=== PATIENT | female | born 1980 | race Caucasian/White ===

== ENCOUNTER 2016-12-07 21:06 | Emergency (ER) | payer SELFPAY ==
[~2016-12-07] VITALS: Ht 162.6 cm; Wt 61.2 kg
[~2016-12-07 21:06] MED LIST: ALPR1T PO; CIPR500T4 PO; CRB200T PO; LEVO125T6 PO; PHYT1LIQ MC
[2016-12-07] MEDS ORDERED: LIDOCAINE/EPI 1%-1:100,000 (XYLOCAINE) 20ML INJ ONE (21:15)
[2016-12-07] MEDS ORDERED: CEPHALEXIN 250 MG (KEFLEX) CAP PO ONE (21:15)
[2016-12-07] MEDS ORDERED: TETANUS,DIPTH,PERTUSS P/F (BOOSTRIX) 0.5 ML VIAL IM ONE (21:15)
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
[2016-12-07] MEDS ORDERED: SULF1TAB35 PO (21:36)
--- NOTE | 2016-12-07 21:41 | Diagnostic Imaging Report ---
Clinical indication: Patient status post fall down stairs. Patient has large laceration to left side of head. Exam: Head CT without IV contrast. Axial CT scan of the cervical spine with sagittal and coronal reformations. Comparison: CT scan of the head, face, and cervical spine dated 07/14/2016. Findings: Head CT: There is no evidence of acute cerebral infarct, intracranial hemorrhage, or gross mass effect. There is normal blackmon-white matter distinction. The brain parenchymal volume appears appropriate for patient's age. There is no significant midline shift or herniation. There is no evidence of hydrocephalus. The basal cisterns are unremarkable. There is a laceration involving the extracranial soft tissue of the left side of the head with adjacent swelling. There is no skull fracture. Otherwise, the skull, extracranial soft tissue, and orbits are unremarkable. There is mild sphenoid sinus mucosal thickening. Cervical spine: There is no acute cervical spine fracture or dislocation. There is stable kyphosis of the cervical spine posture. Stable spurring at the C5-C6 vertebral body level. There is no significant neck soft tissue abnormality. Visualized lung apices are clear. Impression: 1: There is no evidence of acute intracranial process. 2: There is extracranial soft tissue laceration involving the left side of the head with swelling. There is no skull fracture. 3: Stable cervical spine with no acute fracture or dislocation. Dictated by: Dictated on workstation # [id number]
[2016-12-07 21:47] VITALS: BP 120/97
== END 2016-12-07 21:47 | disposition home or self-care (01) ==
LOC: EDUNIT# 21:06 → ER 21:09
DX: S01.01XA Laceration without foreign body of scalp, initial encounter (principal); Z23 Encounter for immunization; F10.10 Alcohol abuse, uncomplicated; W19.XXXA Unspecified fall, initial encounter; Y99.8 Other external cause status
CPT/HCPCS: 12002; 70450; 72125; 90471; 90715

== ENCOUNTER 2016-12-18 10:04 | Emergency (ER) | payer SELFPAY ==
[~2016-12-18] VITALS: Ht 162.6 cm; Wt 56.7 kg
[~2016-12-18 10:04] MED LIST changes: +SULF1TAB35 PO
[2016-12-18 11:11] VITALS: BP 135/90
== END 2016-12-18 11:14 | disposition home or self-care (01) ==
LOC: EDUNIT# 10:04 → ER 10:06
DX: S01.91XD Laceration without foreign body of unspecified part of head, subsequent encounter (principal)

== ENCOUNTER 2018-05-11 20:47 | Emergency (ER) | payer SELFPAY ==
[~2018-05-11] VITALS: Ht 160 cm; Wt 52.2 kg
[2018-05-11] MEDS ORDERED: LACTATED RINGERS 1,000 ML IV ONE (21:23)
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
[2018-05-11 21:45] LABS: BASOPHILS % (AUTO) 0 % (0-10); EOSINOPHILS # (AUTO) 0.3 10^3/uL (0.0-0.3); EOSINOPHILS % (AUTO) 4 % (0-10); HEMATOCRIT 41 % (35-52); HEMOGLOBIN 14.1 G/DL (11.5-16.0); LYMPHOCYTES # (AUTO) 2.2 X 10^3 (1.0-4.0); LYMPHOCYTES % (AUTO) 34 % (12-44); MEAN CORPUSCULAR HEMOGLOBIN 35 PG (25-34); MEAN CORPUSCULAR HGB CONC 34 G/DL (32-36); MEAN CORPUSCULAR VOLUME 102 FL (80-99); MEAN PLATELET VOLUME 10.3 FL (7.4-10.4); MONOCYTES # (AUTO) 0.6 X 10^3 (0.0-1.0); MONOCYTES % (AUTO) 10 % (0-12); NEUTROPHILS # (AUTO) 3.3 X 10^3 (1.8-7.8); NEUTROPHILS % (AUTO) 52 % (42-75); PLATELET COUNT 228 10^3/uL (130-400); RED BLOOD COUNT 4.06 10^6/uL (4.35-5.85); RED CELL DISTRIBUTION WIDTH 13.7 % (10.0-14.5); WHITE BLOOD COUNT 6.4 10^3/uL (4.3-11.0)
[2018-05-11 22:01] LABS: BILIRUBIN,URINE NEGATIVE (NEGATIVE); CLARITY,URINE CLEAR; COLOR,URINE YELLOW; GLUCOSE, URINE (UA) NEGATIVE (NEGATIVE); KETONES,URINE NEGATIVE (NEGATIVE); LEUKOCYTE ESTERASE ,URINE 1+ (NEGATIVE); NITRITE,URINE NEGATIVE (NEGATIVE); PH,URINE 5 (5-9); PROTEIN,URINE NEGATIVE (NEGATIVE); UROBILINOGEN,URINE NORMAL (NORMAL)
[2018-05-11 22:02] LABS: BACTERIA,URINE TRACE /HPF; WBC,URINE 0-2 /HPF
[2018-05-11 22:05] LABS: ALANINE AMINOTRANSFERASE 14 U/L (0-55); ALBUMIN 4.2 GM/DL (3.2-4.5); ALKALINE PHOSPHATASE 87 U/L (40-136); BILIRUBIN,TOTAL 0.2 MG/DL (0.1-1.0); BUN/CREATININE RATIO 8; CALCIUM 8.7 MG/DL (8.5-10.1); CARBON DIOXIDE 20 MMOL/L (21-32); CHLORIDE 114 MMOL/L (98-107); CREATININE SERUM 0.77 MG/DL (0.60-1.30); GFR ESTIMATED > 60; GLUCOSE 104 MG/DL (70-105); MAGNESIUM 2.3 MG/DL (1.8-2.4); POTASSIUM 3.7 MMOL/L (3.6-5.0); SODIUM 146 MMOL/L (135-145)
[2018-05-11 22:10] LABS: INR 0.9 (0.8-1.4); PROTHROMBIN TIME PATIENT 12.1 SEC (12.2-14.7)
[2018-05-11 22:14] LABS: AMPHETAMINE SCREEN, URINE NEGATIVE (NEGATIVE); BARBITURATE SCREEN URINE NEGATIVE (NEGATIVE); BENZODIAZEPINES SCREEN URINE NEGATIVE (NEGATIVE); CANNABINOID SCREEN, URINE NEGATIVE (NEGATIVE); COCAINE SCREEN URINE NEGATIVE (NEGATIVE); METHADONE STAT NEGATIVE (NEGATIVE); METHAMPHETAMINE SCREEN URINE S NEGATIVE (NEGATIVE); OPIATE SCREEN URINE NEGATIVE (NEGATIVE); OXYCODONE STAT NEGATIVE (NEGATIVE); PROPOXYPHENE STAT NEGATIVE (NEGATIVE); TRICYCLIC ANTIDEPRESSANTS SCRE NEGATIVE (NEGATIVE)
[2018-05-11] MEDS ORDERED: RX-NAPROXEN (NAPROSYN) 250 MG TAB PPK#4 PO STA (23:19)
[2018-05-11] MEDS ORDERED: NAPR-915 PO (23:24)
[2018-05-11] MEDS ORDERED: RX-NAPROXEN (NAPROSYN) 250 MG TAB PPK#4 PO ONE (23:39)
[2018-05-11 23:55] VITALS: BP 107/85
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
== END 2018-05-11 23:54 | disposition home or self-care (01) ==
LOC: EDUNIT# 20:47 → ER 20:48
DX: S89.202A Unspecified physeal fracture of upper end of left fibula, initial encounter for closed fracture (principal); S80.12XA Contusion of left lower leg, initial encounter; S00.83XA Contusion of other part of head, initial encounter; F10.220 Alcohol dependence with intoxication, uncomplicated; G40.909 Epilepsy, unspecified, not intractable, without status epilepticus; F32.9 Major depressive disorder, single episode, unspecified; R40.2142 Coma scale, eyes open, spontaneous, at arrival to emergency department; R40.2242 Coma scale, best verbal response, confused conversation, at arrival to emergency department; R40.2362 Coma scale, best motor response, obeys commands, at arrival to emergency department; F17.210 Nicotine dependence, cigarettes, uncomplicated; Z98.51 Tubal ligation status; Z88.5 Allergy status to narcotic agent; Z88.0 Allergy status to penicillin; Y04.8XXA Assault by other bodily force, initial encounter
CPT/HCPCS: 36415; 70450; 72170; 73552; 73562; 73590; 80053; 80306; 80320; 81000; 83735; 84703; 85025; 85610; 85730; 96360

== ENCOUNTER 2018-12-08 19:12 | Emergency (ER) | payer SELFPAY ==
[~2018-12-08] VITALS: Ht 162.6 cm; Wt 59.0 kg
[~2018-12-08 19:12] MED LIST changes: +NAPR-915 PO
--- OUTSIDE RECORDS SUMMARY | 2018-12-08 19:18 | XMS REPORT ---
Author Author Migration, Doctor Organization [facility] Address Unknown Phone Unavailable Care Team Providers Care Air Surveillance Operator Name Role Phone Migration, Doctor Unavailable Unavailable PROBLEMS Type Condition ICD9-CM Code EMJ56-VB Code Onset Dates Condition Status SNOMED Code Problem ETOH abuse F10.10 Active 02115662 Problem Mild episode of recurrent major depressive disorder F33.0 Active [id number] ALLERGIES No Information ENCOUNTERS Encounter Location Date Diagnosis [place] [address] [address] November, [facility] [id number] [place] [address] 12945- 1450 May, [facility] [id number] [place] [address] 42246- 2689 May, Mild episode of recurrent major depressive disorder F33.0 ; Elevated blood pressure reading R03.0 ; Screening for hyperlipidemia Z13.220 ; Screening for thyroid disorder Z13.29 ; Screening for diabetes mellitus Z13.1 and History of seizures Z87.898 [facility] [id number] [place] [address] [id number] Jul, [facility] [id number] [place] [address] 60360- 6095 Oct, [facility] [id number] [place] [address] 10703- 9042 Oct, [facility] [id number] [place] [address] [id number] Sep, [facility] [id number] [place] [address] 87047- 9042 Sep, [facility] [id number] [place] [address] 72386- 5769 Aug, [facility] [id number] [place] [address] [id number] Aug, [facility] [place] [facility] [address] [facility] [id number][place] [address]- 6896 Aug, [facility] [place] [facility] [address] [facility] [id number], [place] [address]- 0586 Aug, [facility] [address] [facility] [id number][place] [id number] Aug, [facility] [place] [facility] [address] [facility] [id number], [place] [address]- 2546 Aug, [facility] [place] [facility] [address] [facility] [id number], [place] [address]- 2546 Aug, [facility] [address] [id number][place] [id number] Jul, [facility] [place] [facility] [address] [address]- 5536 Jul, [facility] [place] [facility] [address] [facility] [id number], [place] [address]- 8616 Jul, [facility] [place] [facility] [address] [facility] [id number][place] [address]- 5566 Jul, [facility] [address] [id number][place] [id number] Jul, [facility] [place] [facility] [address] [facility] [id number], [place] [address]- 4956 Jul, [facility] [place] [facility] [address] [facility] [id number][place] [address]- 2546 Jun, [facility] [place] [facility] [address] [facility] [id number][place] [address]- 2546 Jun, [facility] [address] [facility] [id number], [place] [id number] Jun, [facility] [place] [facility] [address] [facility] [id number][place] [address]- 2546 Jun, [facility] [address] [facility] [id number][place] [id number] Jun, [facility] [place] [facility] [address] [id number] [place] [address]- 2546 Jun, [facility] [place] [facility] [address] [id number] [place] [address]- 2546 Jun, [facility] [place] [facility] [address] [id number] [place] [address]- 2546 May, [facility] [place] [facility] [address] [id number] [place] [address]- 2546 May, [facility] [address] [facility] [id number], [place] [id number] May, [facility] [place] [facility] [address] [id number] [place] [address]- 2546 May, [facility] [place] [facility] [address] [facility] [id number] [place] [address]- 3106 Apr, [facility] [place] [facility] [address] [id number], [place] [address]- 4676 Apr, [facility] [address] [facility] [id number][place] [id number] Apr, [facility] [place] [facility] [address] [id number], [place] [address]- 4556 Apr, [facility] [place] [facility] [address] [id number] [place] [address]- 9894 Mar, [facility] [place] [facility] [address] [id number], [place] [address]- 2676 Mar, [facility] [place] [facility] [address] [id number][place] [address]- 2546 Mar, [facility] [place] [facility] [address] [id number] [place] [address]- 2986 Mar, [facility] [address] [facility] [id number][place] 828362381 Mar, [facility] [place] [facility] [address] [id number][place] [address]- 2656 Mar, [facility] [address] [id number] [place] [id number] Mar, [facility] [address] [id number] [place] [address]- 2416 Mar, [facility] [place] [facility] [address] [id number] [place] [address]- 7406 Feb, [facility] [place] [facility] [address] [id number] [place] [address]- 1874 Feb, [facility] [place] [facility] [address] [id number] [place] [address]- 7904 Feb, [facility] [place] [facility] [address] [id number] [place] [address]- 9289 Feb, [facility] [place] [facility] [address] [id number] [place] [address]- 4377 Feb, [facility] [place] [facility] [address] [id number] [place] [address]- 3445 Feb, [facility] [address] [id number] [place] [id number] Feb, [facility] [place] [facility] [address] [id number] [place] [address]- 9676 Feb, [facility] [place] [facility] [address] [id number] [place] [address]- 6175 Jan, [facility] [place] [facility] [address] [id number] [place] [address]- 1556 Jan, [facility] [address] [id number] [place] [id number] Jan, [facility] [place] [facility] [address] [id number] [place] [address]- 4886 Jan, [facility] [place] [facility] [address] [id number] [place] [address]- 6446 Dec, [facility] [address] [id number] [place] 758171478 Dec, [facility] [address] [id number] [place] [id number] November, [facility] [place] [facility] [address] [id number] [place] [address]- 5556 November, [facility] [address] [id number] [place] [id number] November, [facility] [place] [facility] [address] [facility] [id number] [place] [address]- 1476 November, [facility] [place] [facility] [address] [facility] [id number] [place] [address]- 6476 Oct, [facility] [address] [id number] [place] [id number] Oct, [facility] [address] [id number] [place] 394309513 Oct, [facility] [place] [facility] [address] [id number] [place] [address]- 4237 Oct, [facility] [address] [facility] [id number] [place] [id number] Oct, [facility] [place] [facility] [address] [facility] [id number] [place] [address]- 7989 Oct, [facility] [address] [facility] [id number] [place] [id number] Oct, [facility] [place] [facility] [address] [facility] [id number][place] [address]- 6015 Oct, [facility] [place] [facility] [address] [facility] [id number][place] [address]- 1041 Oct, [facility] [address] [id number] [place] [id number] Oct, [facility] [place] [facility] [address] [facility] [id number] [place] [address]- 5772 Oct, [facility] [address] [id number] [place] [id number] Oct, [facility] [address] [id number] [place] [id number] Sep, [facility] [place] [facility] [address] [facility] [id number][place] [address]- 0519 Sep, [facility] [place] [facility] [address] [facility] [id number] [place] [address]- 6848 Sep, [facility] [address] [facility] [id number] [place] [id number] Sep, [facility] [address] [id number] [place] [id number] Sep, [facility] [place] [facility] [address] [facility] [id number], [place] [address]- 6546 Sep, [facility] [address] [facility] [id number] [place] [id number] Aug, [facility] [place] [facility] [address] [facility] [id number][place] [address]- 9216 Aug, [facility] [address] [facility] [id number] [place] [id number] Aug, [facility] [place] [facility] [address] [facility] [id number][place] [address]- 8107 Aug, [facility] [place] [facility] [address] [facility] [id number][place] [address]- 8289 Aug, [facility] [place] [facility] [address] [facility] [id number], [place] [address]- 0472 Aug, [facility] [address] [facility] [id number][place] 110301591 Jul, [facility] [place] [facility] [address] [facility] [id number][place] [address]- 4276 Jul, [facility] [address] [facility] [id number] [place] 715312530 Jun, [facility] [place] [facility] [address] [facility] [id number], [place] [address]- 2516 Jun, [facility] [address] [facility] [id number] [place] 599984174 May, [facility] [place] [facility] [address] [facility] [id number], [place] [address]- 9692 May, [facility] [address] [id number][place] 105734364 Apr, [facility] [address] [facility] [id number][place] [address]- 2546 Apr, [facility] [address] [id number] [place] [id number] Mar, [facility] [address] [facility] [id number], [place] [address] 2546 Feb, [facility] [address] [id number] [place] [id number] Feb, [facility] [address] [id number] [place] [id number] Feb, [facility] [address] [id number] [place] 123825714 Feb, [facility] [address] [facility] [id number], [place] [address] 2546 Jan, [facility] [address] [id number], [place] 437387851 Jan, [facility] [address] [id number] [place] 818412336 Jan, [facility] [address] [facility] [id number], [place] [address]- 2546 Jan, [facility] [address] [id number], [place] 457140137 November, [facility] [address] [id number], [place] [id number] November, [facility] [facility] [address] [id number][place] [address]- 2546 November, [facility] [address] [id number] [place] 194904669 November, [facility] [address] [id number] [place] 738429802 Oct, [facility] [address] [id number] [place] 966166209 Oct, [facility] [address] [id number] [place] 759032388 Sep, [facility] [address] [id number] [place] 682344998 Sep, [facility] [address] [id number] [place] 786327890 Aug, [facility] [address] [id number] [place] [id number] Jul, [facility] [address] [id number] [place] 428765939 Jun, [facility] [place] [facility] [address] [id number], [place]994[place]- 3314 Jun, [facility] [place] [facility] [address] [facility] [id number][place] [address]- 6843 May, [facility] [place] [facility] [address]65100[place], [place] [address]- 4851 May, [facility] [address] [id number], [place] 727362129 May, [facility] [address] [id number], [place] 542546028 May, [facility] [place] [facility] [address]100[place], [place] [address]- 8344 May, [facility] [place] [facility] [address]65100[place], [place] [address]- 6097 May, [facility] [address] [id number], [place] [id number] May, [facility] [place] [facility] [address] [facility] [id number], [place] [address]- 6962 May, [facility] [address] [id number], [place] [id number] May, [facility] [place] [facility] [address] [facility] [id number][place] [address]- 8988 May, [facility] [address] [id number], [place] 281570125 May, [facility] [place] [facility] [address] [id number], [place] [address]- 2546 May, [facility] [address] [id number], [place] 415385530 May, [facility] [address] [facility] [id number][place] [address]- 8736 May, [facility] [address]65100[place], [place] [address]- 9827 Apr, [facility] [address] [facility] [id number][place] [address]- 6340 Apr, [facility] [id number] [place] [address] 01544- 9284 Apr, [facility] [address]65100[place], [place] [address]- 4514 Apr, [facility] [address] [id number], [place] [id number] Apr, [facility] [address]65100[place], [place] [address]- 1666 Apr, [facility] [address] [id number], [place] 798142237 Apr, [facility] [address] [id number], [place] [id number] Mar, [facility] [address] [id number], [place] [id number] Mar, [facility] [address] [id number], [place] [id number] Feb, [facility] [address] [id number], [place] 622206413 Jan, [facility] [address] [id number], [place] [id number] Dec, [facility] [address] [id number], [place] 941283434 Dec, [facility] [address] [id number], [place] 137597899 November, [facility] [address] [id number] [place] [address] [id number] November, [facility] [address] [id number] [place] [id number] November, [facility] [address]65100[place], [place] [address]- 6975 November, [facility] [address] [id number] [place] [id number] November, [facility] [address] [id number] [place] [id number] November, [facility] [address] [id number] [place] [id number] November, [facility] [address] [id number] [place] [id number] Oct, [facility] [address] [id number] [place] 284729333 Oct, [facility] [address] [id number] [place] [id number] Oct, [facility] [address] [id number] [place] 201464327 Oct, [facility] [address] [id number] [place] [id number] Oct, [facility] [address]100[place], [place] [address]- 4720 Oct, [facility] [address] [id number], [place] 087929389 Oct, [facility] [address] [id number], [place] 946268098 Oct, [facility] [address] [id number] [place] [id number] Sep, [facility] [address] [id number] [place] 375009080 Aug, [facility] [address] [id number] [place] [id number] Aug, [facility] [address] [id number] [place] 788037584 Jul, [facility] [address] [id number] [place] 512075873 Jul, [facility] [address] [id number], [place] [address]- 5416 Jul, [facility] [address] [id number], [place] [id number] Jul, [facility] [address] [id number] [place] [address]- 6486 Jun, [facility] [place] [facility] [address] [id number] [place] [address]- 6166 Jun, [facility] [place] [facility] [address] [id number] [place] [address]- 6765 May, [facility] [place] [facility] [address] [id number] [place] [address]- 8346 Apr, [facility] [address] [facility] [id number] [place] [address]- 6313 Apr, [facility] [address] [id number], [place] [address]- 6205 Jan, [facility] [place] [facility] [address] [id number], [place] [address]- 6862 Dec, [facility] [place] [facility] [address] [id number], [place] [address]- 1266 Aug, [facility] [place] [facility] [address] [id number], [place] [address]- 8266 Jun, [facility] [place] [facility] [address] [id number], [place] [address]- 7556 Jun, [facility] [place] [facility] [address] [id number], [place] [address]- 2406 Jun, [facility] [place] [facility] [address] [id number], [place] [address]- 8106 Jun, [facility] [place] [facility] [address] [facility] [id number], [place] [address]- 0466 Jun, [facility] [place] [facility] [address] [id number], [place] [address]- 4775 May, [facility] [address]65100[place]- 2886 May, [facility] [address]65100[place], [place] [address]- 6963 May, [facility] [address]00565100[place], [place] [address]- 5281 Apr, [facility] [id number] [place] [address] 574700- 6419 Apr, [facility] [id number] [place] [address] 051286- 6555 Apr, [facility] [id number] [place] [address] 584781- 8907 Apr, [facility] [id number] [place] [address] 99149- 4892 Mar, [facility] [address]65100[place], [place] [address]- 0005 Jun, [facility] [address]65100[place], [place] [address]- 0412 Jun, [facility] [address]65100[place], [place] [address]- 7323 Jun, IMMUNIZATIONS No Known Immunizations SOCIAL HISTORY Never Assessed REASON FOR VISIT [facility] [place] PLAN OF CARE VITAL SIGNS MEDICATIONS Unknown Medications RESULTS No Results PROCEDURES No Known procedures INSTRUCTIONS MEDICATIONS ADMINISTERED No Known Medications MEDICAL (GENERAL) HISTORY Type Description Date Medical History anxiety Medical History depression Medical History epilepsy Medical History Attention deficit hyperactivity disorder (ADHD), unspecified ADHD type Medical History Bipolar I disorder, most recent episode (or current) manic, unspecified Medical History Attention deficit disorder of childhood without mention of hyperactivity Medical History Unspecified epilepsy without mention of intractable epilepsy Medical History Cyst of Bartholin''''''''s gland Medical History Unilateral or unspecified femoral hernia without mention of obstruction or gangrene, unilateral or unspecified Medical History Papanicolaou smear of cervix with atypical squamous cells of undetermined significance (ASC-US) Medical History Counseling for marital and partner problems, unspecified Surgical History bilateral tubal ligation (BTL) Surgical History tonsillectomy Hospitalization History seizures
--- OUTSIDE RECORDS SUMMARY | 2018-12-08 19:18 | XMS REPORT ---
Author Author Migration, Doctor Organization [facility] Address Unknown Phone Unavailable Care Team Providers Care Popcorn Vendor Name Role Phone Migration, Doctor Unavailable Unavailable PROBLEMS Type Condition ICD9-CM Code WQB78-ID Code Onset Dates Condition Status SNOMED Code Problem ETOH abuse F10.10 Active [id number] Problem Mild episode of recurrent major depressive disorder F33.0 Active [id number] ALLERGIES No Information ENCOUNTERS Encounter Location Date Diagnosis [facility] [address] [address] May, [facility] [id number] [place] [address]- 3146 May, Mild episode of recurrent major depressive disorder F33.0 ; Elevated blood pressure reading R03.0 ; Screening for hyperlipidemia Z13.220 ; Screening for thyroid disorder Z13.29 ; Screening for diabetes mellitus Z13.1 and History of seizures Z87.[id number] [place] [address] [id number] Jul, [facility] [address] [address] Oct, [facility] [id number] [place] [address] 89509- 3769 Oct, [facility] [id number] [place] [address] [id number] Sep, [facility] [id number] [place] [address] 62012- 4383 Sep, [facility] [id number] [place] [address] 91311- 5616 Aug, [facility] [id number] [place] [address] [id number] Aug, [facility] [id number] [place] [address] 57687- 2546 Aug, [facility] [address] [id number], [place] [address]- [address]46 Aug, [facility] [address] [facility] [id number][place] [id number] Aug, [facility] [place] [facility] [address] [facility] [id number], [place] [address]- 2546 Aug, [facility] [place] [facility] [address] [facility] [id number], [place] [address]- 2546 Aug, [facility] [address] [facility] [id number][place] [id number] Jul, [facility] [place] [facility] [address] [facility] [id number], [place] [address]- 6336 Jul, [facility] [place] [facility] [address] [facility] [id number], [place] [address]- 2306 Jul, [facility] [place] [facility] [address] [facility] [id number], [place] [address]- 8286 Jul, [facility] [address] [facility] [id number], [place] 102561119 Jul, [facility] [place] [facility] [address] [facility] [id number], [place] [address]- 8436 Jul, [facility] [place] [facility] [address] [facility] [id number], [place] [address]- 3466 Jun, [facility] [place] [facility] [address] [facility] [id number], [place] [address]- 2546 Jun, [facility] [address] [facility] [id number], [place] 610821690 Jun, [facility] [place] [facility] [address] [facility] [id number], [place] [address]- 2546 Jun, [facility] [address] [facility] [id number], [place] 137819608 Jun, [facility] [place] [facility] [address] [facility] [id number], [place] [address]- 2546 Jun, [facility] [place] [facility] [address] [id number] [place] [address]- 6313 Jun, [facility] [place] [facility] [address] [id number] [place] [address]- 8476 May, [facility] [place] [facility] [address] [facility] [id number] [place] [address]- 0736 May, [facility] [address] [facility] [id number], [place] 845517473 May, [facility] [place] [facility] [address] [id number] [place] [address]- 5307 May, [facility] [place] [facility] [address] [facility] [id number] [place] [address]- 9316 Apr, [facility] [place] [facility] [address] [facility] [id number] [place] [address]- 9340 Apr, [facility] [address] [facility] [id number], [place] 000022420 Apr, [facility] [place] [facility] [address] [id number] [place] [address]- 0614 Apr, [facility] [place] [facility] [address] [facility] [id number] [place] [address]- 7473 Mar, [facility] [place] [facility] [address] [facility] [id number], [place] [address]- 7163 Mar, [facility] [place] [facility] [address] [facility] [id number], [place] [address]- 7176 Mar, [facility] [place] [facility] [address] [id number] [place] [address]- 2762 Mar, [facility] [address] [facility] [id number], [place] 739487271 Mar, [facility] [place] [facility] [address] [facility] [id number] [place] [address]- 2546 Mar, [facility] [address] [facility] [id number], [place] [id number] Mar, [facility] [place] [facility] [address] [id number] [place] [address]- 0493 Mar, [facility] [place] [facility] [address] [id number] [place] [address]- 6545 Feb, [facility] [place] [facility] [address] [id number] [place] [address]- 9727 Feb, [facility] [place] [facility] [address] [id number] [place] [address]- 0928 Feb, [facility] [place] [facility] [address] [id number] [place] [address]- 5492 Feb, [facility] [place] [facility] [address] [id number] [place] [address]- 2057 Feb, [facility] [place] [facility] [address] [id number] [place] [address]- 9728 Feb, [facility] [address] [facility] [id number], [place] 764271083 Feb, [facility] [place] [facility] [address] [id number] [place] [address]- 2801 Feb, [facility] [place] [facility] [address] [id number] [place] [address]- 5429 Jan, [facility] [place] [facility] [address] [id number] [place] [address]- 6485 Jan, [facility] [address] [facility] [id number], [place] 628893634 Jan, [facility] [place] [facility] [address] [id number] [place] [address]- 3835 Jan, [facility] [place] [facility] [address] [id number] [place] [address]- 1604 Dec, [facility] [address] [id number] [place] [id number] Dec, [facility] [address] [facility] [id number] [place] [id number] November, [facility] [place] [facility] [address] [facility] [id number], [place] [address]- 5413 November, [facility] [address] [id number] [place] [id number] November, [facility] [place] [facility] [address] [facility] [id number] [place] [address]- 4628 November, [facility] [place] [facility] [address] [facility] [id number] [place] [address]- 8540 Oct, [facility] [address] [id number] [place] [id number] Oct, [facility] [address] [id number] [place] [id number] Oct, [facility] [place] [facility] [address] [facility] [id number] [place] [address]- 1478 Oct, [facility] [address] [facility] [id number] [place] [id number] Oct, [facility] [place] [facility] [address] [id number], [place] [address]- 8412 Oct, [facility] [address] [facility] [id number] [place] [id number] Oct, [facility] [place] [facility] [address]65[address], [place] [address]- 9363 Oct, [facility] [place] [facility] [address]65[address], [place] [address]- 9803 Oct, [facility] [address] [facility] [id number] [place] [id number] Oct, [facility] [place] [facility] [address] [facility] [id number] [place] [address]- 6641 Oct, [facility] [address] [facility] [id number] [place] [id number] Oct, [facility] [address] [facility] [id number] [place] [id number] Sep, [facility] [place] [facility] [address] [facility] [id number] [place] [address]- 3468 Sep, [facility] [place] [facility] [address] [id number], [place] [address]- 8976 Sep, [facility] [address] [id number] [place] [id number] Sep, [facility] [address] [id number] [place] [id number] Sep, [facility] [place] [facility] [address] [facility] [id number], [place] [address]- 7036 Sep, [facility] [address] [id number] [place] [id number] Aug, [facility] [place] [facility] [address] [facility] [id number], [place] [address]- 4596 Aug, [facility] [address] [facility] [id number] [place] [id number] Aug, [facility] [place] [facility] [address] [facility] [id number], [place] [address]- 7266 Aug, [facility] [place] [facility] [address] [facility] [id number], [place] [address]- 8419 Aug, [facility] [place] [facility] [address] [facility] [id number], [place] [address]- 8796 Aug, [facility] [address] [facility] [id number], [place] [id number] Jul, [facility] [place] [facility] [address] [facility] [id number], [place] [address]- 5291 Jul, [facility] [address] [facility] [id number], [place] [id number] Jun, [facility] [place] [facility] [address] [facility] [id number], [place] [address]- 3706 Jun, [facility] [address] [facility] [id number], [place] [id number] May, [facility] [place] [facility] [address] [facility] [id number], [place] [address]- 1956 May, [facility] [address] [facility] [id number], [place] [id number] Apr, [facility] [address] [facility] [id number], [place] [address]- 0908 Apr, [facility] [address] [id number] [place] [id number] Mar, [facility] [place] [facility] [address] [facility] [id number], [place] [address]- 6486 Feb, [facility] [address] [id number] [place] [id number] Feb, [facility] [address] [id number] [place] [id number] Feb, [facility] [address] [id number] [place] [id number] Feb, [facility] [place] [facility] [address] [facility] [id number], [place] [address] 2546 Jan, [facility] [address] [id number] [place] [id number] Jan, [facility] [address] [id number] [place] [id number] Jan, [facility] [address] [facility] [id number], [place] [address]- 2546 Jan, [facility] [address] [id number] [place] [id number] November, [facility] [address] [id number], [place] [id number] November, [facility] [address] [facility] [id number], [place] [address]- 2546 November, [facility] [address] [id number] [place] [id number] November, [facility] [address] [id number] [place] [id number] Oct, [facility] [address] [id number] [place] 688343986 Oct, [facility] [address] [id number] [place] [id number] Sep, [facility] [address] [id number] [place] [id number] Sep, [facility] [address] [id number] [place] [id number] Aug, [facility] [address] [id number] [place] [id number] Jul, [facility] [address] [id number] [place] [id number] Jun, [facility] [place] [facility] [address] [facility] [id number], [place] [address]- 3736 Jun, [facility] [place] [facility] [address] [facility] [id number], [place] 550103- 8910 May, [facility] [place] [facility] [address] [facility] [id number], [place] [address]- 6813 May, [facility] [address] [id number], [place] 715136324 May, [facility] [id number] [place] [address] [id number] May, [facility] [place] [facility] [address] [facility] [id number], [place] [address]- 3508 May, [facility] [place] [facility] [address]00565[address], [place] [address]- 8361 May, [facility] [address] [id number], [place] [id number] May, [facility] [place] [facility] [address]00565[address]- 5042 May, [facility] [address] [id number], [place] [id number] May, [facility] [place] [facility] [address] [facility] [id number], [place] [address]- 4685 May, [facility] [address] [facility] [id number], [place] [id number] May, [facility] [place] [facility] [address]00565[address]- 6088 May, [facility] [address] [id number], [place] 376500392 May, [facility] [address] [facility] [id number], [place] [address]- 9076 May, [facility] [place] [facility] [address] [facility] [id number], [place] [address]- 3602 Apr, [facility] [address] [facility] [id number], [place] [address]- 2470 Apr, [facility] [place] [facility] [address] [facility] [id number] [place] [address] 07690- 6285 Apr, [facility] [address] [facility] [id number], [place] [address]- 9011 Apr, [facility] [address] [facility] [id number], [place] [id number] Apr, [facility] [place] [facility] [address]00565[address], [place] [address]- 6566 Apr, [facility] [address] [id number], [place] 762212246 Apr, [facility] [address] [id number], [place] 610904045 Mar, [facility] [address] [id number] [place] [address] [id number] Mar, [facility] [address] [id number], [place] 723748517 Feb, [facility] [address] [id number], [place] 659464857 Jan, [facility] [address] [id number], [place] 319379599 Dec, [facility] [address] [id number], [place] 020629587 Dec, [facility] [address] [id number], [place] [id number] November, [facility] [address] [id number], [place] 176438942 November, [facility] [address] [id number], [place] 454388220 November, [facility] [address] [facility] [id number], [place] [address]- 4381 November, [facility] [address] [id number] [place] [id number] November, [facility] [address] [id number] [place] [id number] November, [facility] [address] [id number] [place] [id number] November, [facility] [address] [id number] [place] [id number] Oct, [facility] [address] [id number] [place] [id number] Oct, [facility] [address] [id number] [place] [id number] Oct, [facility] [address] [id number] [place] [id number] Oct, [facility] [address] [id number] [place] [id number] Oct, [facility] [address]00565[address], [place] [address]- 4087 Oct, [facility] [address] [id number] [place] [id number] Oct, [facility] [address] [id number] [place] [id number] Oct, [facility] [address] [id number] [place] [id number] Sep, [facility] [address] [id number] [place] [id number] Aug, [facility] [address] [id number] [place] [id number] Aug, [facility] [address] [id number] [place] [id number] Jul, [facility] [address] [id number], [place] [id number] Jul, [facility] [address]00565[address], [place] [address]- 9655 Jul, [facility] [address] [id number] [place] [id number] Jul, [facility] [address] [id number] [place] [address]- 0164 Jun, [facility] [place] [facility] [address] [id number] [place] [address]- 5016 Jun, [facility] [place] [facility] [address] [id number] [place] [address]- 9551 May, [facility] [place] [facility] [address] [id number] [place] [address]- 2888 Apr, [facility] [place] [facility] [address] [id number] [place] [address]- 8369 Apr, [facility] [address] [id number] [place] [address]- 5016 Jan, [facility] [address] [id number], [place] [address]- 8627 Dec, [facility] [place] [facility] [address] [id number] [place] [address]- 4879 Aug, [facility] [address] [id number], [place] [address]- 5420 Jun, [facility] [place] [facility] [address] [id number], [place] [address]- 6145 Jun, [facility] [place] [facility] [address] [id number], [place] [address]- 8237 Jun, [facility] [place] [facility] [address] [id number], [place] [address]- 9341 Jun, [facility] [place] [facility] [address] [id number], [place] [address]- 7746 Jun, [facility] [place] [facility] [address] [facility] [id number], [place] [address]- 6183 15 May, 2010 [facility] [place] [facility] [address] [id number], [place] [address]- 2546 May, [facility] [address]65[address], [place] [address]- 6546 May, [facility] [address]00565[address], [place] [address]- 5846 Apr, [facility] [address]65[address], [place] [address]- 8466 Apr, [facility] [address]65[address], [place] [address]- 3528 Apr, [facility] [address]00565[address], [place] [address]- 5896 Apr, [facility] [address]65[address], [place] [address]- 6036 Mar, [facility] [address]65[address], [place] [address]- 0786 Jun, [facility] [address]65[address], [place] [address]- 8581 Jun, [facility] [address]65[address], [place] [address]- 6460 Jun, IMMUNIZATIONS No Known Immunizations SOCIAL HISTORY Never Assessed REASON FOR VISIT [facility] [place] CARE VITAL SIGNS MEDICATIONS Unknown [...]
--- OUTSIDE RECORDS SUMMARY | 2018-12-08 19:19 | XMS REPORT ---
Author Author Migration, Doctor Organization [facility] Address Unknown Phone Unavailable Care Team Providers Care Engineering Technology Instructor Name Role Phone Migration, Doctor Unavailable Unavailable PROBLEMS Type Condition ICD9-CM Code RRE70-RG Code Onset Dates Condition Status SNOMED Code Problem ETOH abuse F10.10 Active 27730224 Problem Mild episode of recurrent major depressive disorder F33.0 Active 163228531 ALLERGIES No Information ENCOUNTERS Encounter Location Date Diagnosis [facility] [address] [address] May, [facility] [id number] [place] [address]- [address] May, Mild episode of recurrent major depressive disorder F33.0 ; Elevated blood pressure reading R03.0 ; Screening for hyperlipidemia Z13.220 ; Screening for thyroid disorder Z13.29 ; Screening for diabetes mellitus Z13.1 and History of seizures Z87.898 [id number] [place] [id number] Jul, [facility] [address] [address] Oct, [facility] [id number] [place] [address]- 2841 Oct, [facility] [id number] [place] [address] [id number] Sep, [facility] [id number] [place] [address]- 3981 Sep, [facility] [id number] [place] [address]- 3596 Aug, [facility] [id number] [place] [address] [id number] Aug, [facility] [id number] [place] [address] 87338- 2546 Aug, [facility] [address] [id number], [place] [address]- 2546 Aug, [facility] [address] [facility] [id number][place] [id number] Aug, [facility] [place] [facility] [address] [facility] [id number], [place] [address]- 2546 Aug, [facility] [place] [facility] [address] [facility] [id number], [place] [address]- 2546 Aug, [facility] [address] [facility] [id number], [place] [id number] Jul, [facility] [place] [facility] [address] [facility] [id number], [place] [address]- 0526 Jul, [facility] [place] [facility] [address] [facility] [id number], [place] [address]- 3016 Jul, [facility] [place] [facility] [address] [facility] [id number], [place] [address]- 2526 Jul, [facility] [address] [facility] [id number], [place] [id number] Jul, [facility] [place] [facility] [address] [facility] [id number], [place] [address]- 9466 Jul, [facility] [place] [facility] [address] [facility] [id number], [place] [address]- 3216 Jun, [facility] [place] [facility] [address] [facility] [id number], [place] [address]- 2546 Jun, [facility] [address] [facility] [id number], [place] 460901906 Jun, [facility] [place] [facility] [address] [facility] [id number], [place] [address]- 2546 Jun, [facility] [address] [facility] [id number], [place] [id number] Jun, [facility] [place] [facility] [address] [facility] [id number], [place] [address]- 2546 Jun, [facility] [place] [facility] [address] [id number] [place] [address]- 8866 Jun, [facility] [place] [facility] [address] [id number] [place] [address]- 3786 May, [facility] [place] [facility] [address] [facility] [id number] [place] [address]- 5656 May, [facility] [address] [facility] [id number], [place] [id number] May, [facility] [place] [facility] [address] [id number] [place] [address]- 9044 May, [facility] [place] [facility] [address] [facility] [id number] [place] [address]- 1286 Apr, [facility] [place] [facility] [address] [facility] [id number] [place] [address]- 9819 Apr, [facility] [address] [facility] [id number], [place] [id number] Apr, [facility] [place] [facility] [address] [id number] [place] [address]- 3115 Apr, [facility] [place] [facility] [address] [facility] [id number] [place] [address]- 7142 Mar, [facility] [place] [facility] [address] [facility] [id number], [place] [address]- 2432 Mar, [facility] [place] [facility] [address] [facility] [id number], [place] [address]- 9806 Mar, [facility] [place] [facility] [address] [id number] [place] [address]- 7794 Mar, [facility] [address] [facility] [id number], [place] 140736559 Mar, [facility] [place] [facility] [address] [facility] [id number] [place] [address]- 2546 Mar, [facility] [address] [facility] [id number], [place] 6[address]00595 Mar, [facility] [place] [facility] [address] [id number] [place] [address]- 5063 Mar, [facility] [place] [facility] [address] [id number] [place] [address]- 7124 Feb, [facility] [place] [facility] [address] [id number] [place] [address]- 1174 Feb, [facility] [place] [facility] [address] [id number] [place] [address]- 0031 Feb, [facility] [place] [facility] [address] [id number] [place] [address]- 8179 Feb, [facility] [place] [facility] [address] [id number] [place] [address]- 5163 Feb, [facility] [place] [facility] [address] [id number] [place] [address]- 1726 Feb, [facility] [address] [facility] [id number], [place] [id number] Feb, [facility] [place] [facility] [address] [id number] [place] [address]- 7981 Feb, [facility] [place] [facility] [address] [id number] [place] [address]- 9539 Jan, [facility] [place] [facility] [address] [id number] [place] [address]- 8359 Jan, [facility] [address] [facility] [id number], [place] 084482450 Jan, [facility] [place] [facility] [address] [id number] [place] [address]- 5086 Jan, [facility] [place] [facility] [address] [id number] [place] [address]- 1377 Dec, [facility] [address] [id number] [place] [id number] Dec, [facility] [address] [facility] [id number] [place] [id number] November, [facility] [place] [facility] [address] [facility] [id number], [place] [address]- 1062 November, [facility] [address] [id number] [place] [id number] November, [facility] [place] [facility] [address] [facility] [id number] [place] [address]- 3339 November, [facility] [place] [facility] [address] [facility] [id number] [place] [address]- 5578 Oct, [facility] [address] [id number] [place] [id number] Oct, [facility] [address] [id number] [place] 783135848 Oct, [facility] [place] [facility] [address] [facility] [id number] [place] [address]- 7376 Oct, [facility] [address] [facility] [id number] [place] [id number] Oct, [facility] [place] [facility] [address] [id number] [address]- [address] Oct, [facility] [address] [facility] [id number] [place] [id number] Oct, [facility] [place] [facility] [address]65[address], [place] [address]- 2820 Oct, [facility] [place] [facility] [address]65100[place], [place] [address]- 7857 Oct, [facility] [address] [facility] [id number] [place] 877788441 Oct, [facility] [place] [facility] [address] [facility] [id number] [place] [address]- 9756 Oct, [facility] [address] [facility] [id number] [place] [id number] Oct, [facility] [address] [facility] [id number] [place] [id number] Sep, [facility] [place] [facility] [address] [facility] [id number] [place] [address]- 8433 Sep, [facility] [place] [facility] [address] [id number], [place] [address]- 2566 Sep, [facility] [address] [id number] [place] 810065355 Sep, [facility] [address] [id number] [place] [id number] Sep, [facility] [place] [facility] [address] [facility] [id number], [place] [address]- 4506 Sep, [facility] [address] [id number] [place] [id number] Aug, [facility] [place] [facility] [address] [facility] [id number], [place] [address]- 8816 Aug, [facility] [address] [facility] [id number] [place] [id number] Aug, [facility] [place] [facility] [address] [facility] [id number], [place] [address]- 2966 Aug, [facility] [place] [facility] [address] [facility] [id number], [place] [address]- 9925 Aug, [facility] [place] [facility] [address] [facility] [id number], [place] [address]- 5399 Aug, [facility] [address] [facility] [id number], [place] [id number] Jul, [facility] [place] [facility] [address] [facility] [id number], [place] [address]- 2886 Jul, [facility] [address] [facility] [id number], [place] 122310626 Jun, [facility] [place] [facility] [address] [facility] [id number], [place] [address]- 0676 Jun, [facility] [address] [facility] [id number], [place] [id number] May, [facility] [place] [facility] [address] [facility] [id number], [place] [address]- 8036 May, [facility] [address] [facility] [id number], [place] [id number] Apr, [facility] [address] [facility] [id number], [place] [address]- 3359 Apr, [facility] [address] [id number] [place] [id number] Mar, [facility] [place] [facility] [address] [facility] [id number], [place] [address]- 0826 Feb, [facility] [address] [id number] [place] [id number] Feb, [facility] [address] [id number] [place] 196944992 Feb, [facility] [address] [id number] [place] [id number] Feb, [facility] [place] [facility] [address] [facility] [id number], [place] [address] 2546 Jan, [facility] [address] [id number] [place] [id number] Jan, [facility] [address] [id number] [place] [id number] Jan, [facility] [address] [facility] [id number], [place] [address]- 2546 Jan, [facility] [address] [id number] [place] [id number] November, [facility] [address] [id number], [place] 580647043 November, [facility] [address] [facility] [id number], [place] [address]- 2546 November, [facility] [address] [id number] [place] [id number] November, [facility] [address] [id number] [place] 943161141 Oct, [facility] [address] [id number] [place] 714786929 Oct, [facility] [address] [id number] [place] 275400477 Sep, [facility] [address] [id number] [place] [id number] Sep, [facility] [address] [id number] [place] 420579423 Aug, [facility] [address] [id number] [place] [id number] Jul, [facility] [address] [id number] [place] [id number] Jun, [facility] [place] [facility] [address] [facility] [id number], [place] [address]- 4764 Jun, [facility] [place] [facility] [address] [facility] [id number], [place] 5608[place]- 6658 May, [facility] [place] [facility] [address] [facility] [id number], [place] [address]- 8053 May, [facility] [address] [id number], [place] 3759[address]455 May, [facility] [id number] [place] [address] [id number] May, [facility] [place] [facility] [address] [facility] [id number], [place] [address]- 9206 May, [facility] [place] [facility] [address]00565100[place], [place] [address]- 6348 May, [facility] [address] [id number], [place] 173352452 May, [facility] [place] [facility] [address]00565100[place]05[place]- 1826 May, [facility] [address] [id number], [place] 031474271 May, [facility] [place] [facility] [address] [facility] [id number], [place] [address]- 2691 May, [facility] [address] [facility] [id number], [place] [id number] May, [facility] [place] [facility] [address]00565100[place]018[place]- 0057 May, [facility] [address] [id number], [place] 087773303 May, [facility] [address] [facility] [id number], [place] [address]- 8696 May, [facility] [place] [facility] [address] [facility] [id number], [place] [address]- 5037 Apr, [facility] [address] [facility] [id number], [place] [address]- 2802 Apr, [facility] [place] [facility] [address] [facility] [id number] [place] [address] 31381- 4357 Apr, [facility] [address] [facility] [id number], [place] [address]- 0080 Apr, [facility] [address] [facility] [id number], [place] [id number] Apr, [facility] [place] [facility] [address]00565100[place], [place] [address]- 8916 Apr, [facility] [address] [id number], [place] 437729956 Apr, [facility] [address] [id number], [place] 880381659 Mar, [facility] [address] [id number] [place] [address] [id number] Mar, [facility] [address] [id number], [place] 786720961 Feb, [facility] [address] [id number], [place] 954956954 Jan, [facility] [address] [id number], [place] 676972600 Dec, [facility] [address] [id number], [place] 981030180 Dec, [facility] [address] [id number], [place] 622592277 November, [facility] [address] [id number], [place] [id number] November, [facility] [address] [id number], [place] 707092696 November, [facility] [address] [facility] [id number], [place] [address]- [address] November, [facility] [address] [id number] [place] [id number] November, [facility] [address] [id number] [place] [id number] November, [facility] [address] [id number] [place] 564971527 November, [facility] [address] [id number] [place] 076652709 Oct, [facility] [address] [id number] [place] [id number] Oct, [facility] [address] [id number] [place] 294592945 Oct, [facility] [address] [id number] [place] [id number] Oct, [facility] [address] [id number] [place] [id number] Oct, [facility] [address]00565100[place], [place] [address]- 3551 Oct, [facility] [address] [id number] [place] [id number] Oct, [facility] [address] [id number] [place] 668414976 Oct, [facility] [address] [id number] [place] [id number] Sep, [facility] [address] [id number] [place] [id number] Aug, [facility] [address] [id number] [place] [id number] Aug, [facility] [address] [id number] [place] [id number] Jul, [facility] [address] [id number], [place] 232231559 Jul, [facility] [address]00565100[place], [place] [address]- 1357 Jul, [facility] [address] [id number] [place] [id number] Jul, [facility] [address] [id number] [place] [address]- 2693 Jun, [facility] [place] [facility] [address] [id number] [place] [address]- 3946 Jun, [facility] [place] [facility] [address] [id number] [place] [address]- 4856 May, [facility] [place] [facility] [address] [id number] [place] [address]- 7053 Apr, [facility] [place] [facility] [address] [id number] [place] [address]- 8505 Apr, [facility] [address] [id number] [place] [address]- 5014 Jan, [facility] [address] [id number], [place] [address]- 3273 Dec, [facility] [place] [facility] [address] [id number] [place] [address]- 5767 Aug, [facility] [address] [id number], [place] [address]- 1526 Jun, [facility] [place] [facility] [address] [id number], [place] [address]- 0849 Jun, [facility] [place] [facility] [address] [id number], [place] [address]- 5082 Jun, [facility] [place] [facility] [address] [id number], [place] [address]- 4032 Jun, [facility] [place] [facility] [address] [id number], [place] [address]- 4817 Jun, [facility] [place] [facility] [address] [facility] [id number], [place] [address]- 8147 15 May, 2010 [facility] [place] [facility] [address] [id number], [place] [address]- 2546 May, [facility] [address]65100[place], [place] [address]- 6666 May, [facility] [address]00565100[place], [place] [address]- 2906 Apr, [facility] [address]00565100[place], [place] [address] 1936 Apr, [facility] [address]00565100[place], [place] [address]- 1948 Apr, [facility] [address]00565100[place], [place] [address]- 9036 Apr, [facility] [address]00565100[place], [place] [address]- 6636 Mar, [facility] [address]65100[place], [place] [address]- 8116 Jun, [facility] [address]65100[place], [place] [address]- 1172 Jun, [facility] [address]65100[place], [place] [address]- 0296 Jun, IMMUNIZATIONS No Known Immunizations SOCIAL HISTORY Never Assessed REASON FOR VISIT [facility] [place] PLAN OF CARE VITAL SIGNS MEDICATIONS Unknown [...]
--- OUTSIDE RECORDS SUMMARY | 2018-12-08 19:19 | XMS REPORT ---
Author Author Migration, Doctor Organization [facility] Address Unknown Phone Unavailable Care Team Providers Care Global Cto Name Role Phone Migration, Doctor Unavailable Unavailable PROBLEMS Type Condition ICD9-CM Code KWA70-PC Code Onset Dates Condition Status SNOMED Code Problem ETOH abuse F10.10 Active 84261837 Problem Mild episode of recurrent major depressive disorder F33.0 Active [id number] ALLERGIES No Information ENCOUNTERS Encounter Location Date Diagnosis [facility] [address] [address] May, [facility] [id number] [place] [address]- 3479 May, Mild episode of recurrent major depressive disorder F33.0 ; Elevated blood pressure reading R03.0 ; Screening for hyperlipidemia Z13.220 ; Screening for thyroid disorder Z13.29 ; Screening for diabetes mellitus Z13.1 and History of seizures Z87.[id number] [place] [id number] Jul, [facility] [address] [address]- [address] Oct, [facility] [id number] [place] [address] 14751- 0177 Oct, [facility] [id number] [place] [address] [id number] Sep, [facility] [id number] [place] [address] 76028- 3147 Sep, [facility] [id number] [place] [address] 65762- 6120 Aug, [facility] [id number] [place] [address] [id number] Aug, [facility] [id number] [place] [address] 84576- 2546 Aug, [facility] [address] [id number], [place] [address]- 25[address] Aug, [facility] [id number][place] [id number] Aug, [facility] [place] [facility] [address] [facility] [id number], [place] [address]- 2546 Aug, [facility] [place] [facility] [address] [facility] [id number], [place] [address]- 2546 Aug, [facility] [address] [facility] [id number], [place] [id number] Jul, [facility] [place] [facility] [address] [facility] [id number], [place] [address]- 8416 Jul, [facility] [place] [facility] [address] [facility] [id number], [place] [address]- 8516 Jul, [facility] [place] [facility] [address] [facility] [id number], [place] [address]- 3126 Jul, [facility] [address] [facility] [id number], [place] [id number] Jul, [facility] [place] [facility] [address] [facility] [id number], [place] [address]- 7856 Jul, [facility] [place] [facility] [address] [facility] [id number], [place] [address]- 5486 Jun, [facility] [place] [facility] [address] [facility] [id number], [place] [address]- 2546 Jun, [facility] [address] [facility] [id number], [place] [id number] Jun, [facility] [place] [facility] [address] [facility] [id number], [place] [address]- 2546 Jun, [facility] [address] [facility] [id number], [place] [id number] Jun, [facility] [place] [facility] [address] [facility] [id number], [place] [address]- 2546 Jun, [facility] [place] [facility] [address] [id number] [place] [address]- 2566 Jun, [facility] [place] [facility] [address] [id number] [place] [address]- 2536 May, [facility] [place] [facility] [address] [facility] [id number] [place] [address]- 3776 May, [facility] [address] [facility] [id number], [place] 830562297 May, [facility] [place] [facility] [address] [id number] [place] [address]- 4763 May, [facility] [place] [facility] [address] [facility] [id number] [place] [address]- 6956 Apr, [facility] [place] [facility] [address] [facility] [id number] [place] [address]- 6032 Apr, [facility] [id number], [place] [id number] Apr, [facility] [place] [facility] [address] [id number] [place] [address]- 8458 Apr, [facility] [place] [facility] [address] [facility] [id number] [place] [address]- 5592 Mar, [facility] [place] [facility] [address] [facility] [id number], [place] [address]- 3443 Mar, [facility] [place] [facility] [address] [facility] [id number], [place] [address]- 9876 Mar, [facility] [place] [facility] [address] [id number] [place] [address]- 0346 Mar, [facility] [address] [facility] [id number], [place] [id number] Mar, [facility] [place] [facility] [address] [facility] [id number] [place] [address]- 2546 Mar, [facility] [id number], [place] [id number] Mar, [facility] [place] [facility] [address] [id number] [place] [address]- 3913 Mar, [facility] [place] [facility] [address] [id number] [place] [address]- 8173 Feb, [facility] [place] [facility] [address] [id number] [place] [address]- 9413 Feb, [facility] [place] [facility] [address] [id number] [place] [address]- 9314 Feb, [facility] [place] [facility] [address] [id number] [place] [address]- 3305 Feb, [facility] [place] [facility] [address] [id number] [place] [address]- 9634 Feb, [facility] [place] [facility] [address] [id number] [place] [address]- 5469 Feb, [facility] [address] [facility] [id number], [place] [id number] Feb, [facility] [place] [facility] [address] [id number] [place] [address]- 7755 Feb, [facility] [place] [facility] [address] [id number] [place] [address]- 8903 Jan, [facility] [place] [facility] [address] [id number] [place] [address]- 7412 Jan, [facility] [id number], [place] 801984676 Jan, [facility] [place] [facility] [address] [id number] [place] [address]- 9530 Jan, [facility] [place] [facility] [address] [id number] [place] [address]- 7221 Dec, [facility] [address] [id number] [place] 989[place]442 Dec, [facility] [address] [facility] [id number] [place] [id number] November, [facility] [place] [facility] [address] [facility] [id number], [place] [address]- 8714 November, [facility] [address] [id number] [place] 168256929 November, [facility] [place] [facility] [address] [facility] [id number] [place] [address]- 9505 November, [facility] [place] [facility] [address] [facility] [id number] [place] [address]- 2659 Oct, [facility] [address] [id number] [place] 7413[address]016 Oct, [facility] [address] [id number] [place] 876347342 Oct, [facility] [place] [facility] [address] [facility] [id number] [place] [address]- 6613 Oct, [facility] [address] [facility] [id number] [place] 156044379 Oct, [facility] [place] [facility] [address] [id number], [place] [address]- 3945 Oct, [facility] [address] [facility] [id number] [place] 996127647 Oct, [facility] [place] [facility] [address]65[address], [place] [address]- 0661 Oct, [facility] [place] [facility] [address]65[address], [place] [address]- 9288 Oct, [facility] [address] [facility] [id number] [place] 902774752 Oct, [facility] [place] [facility] [address] [facility] [id number] [place] [address]- 3517 Oct, [facility] [address] [facility] [id number] [place] 644192425 Oct, [facility] [address] [facility] [id number] [place] 036323570 Sep, [facility] [place] [facility] [address] [facility] [id number] [place] [address]- 4959 Sep, [facility] [place] [facility] [address] [id number], [place] [address]- 1526 Sep, [facility] [address] [id number] [place] [id number] Sep, [facility] [address] [id number] [place] 048370167 Sep, [facility] [place] [facility] [address] [facility] [id number], [place] [address]- 6746 Sep, [facility] [address] [id number] [place] [id number] Aug, [facility] [place] [facility] [address] [facility] [id number], [place] [address]- 5666 Aug, [facility] [address] [facility] [id number] [place] 379810702 Aug, [facility] [place] [facility] [address] [facility] [id number], [place] [address]- 6306 Aug, [facility] [place] [facility] [address] [facility] [id number], [place] [address]- 4355 Aug, [facility] [place] [facility] [address] [facility] [id number], [place] [address]- 2541 Aug, [facility] [address] [facility] [id number], [place] [id number] Jul, [facility] [place] [facility] [address] [facility] [id number], [place] [address]- 9204 Jul, [facility] [address] [facility] [id number], [place] 537391269 Jun, [facility] [place] [facility] [address] [facility] [id number], [place] [address]- 5546 Jun, [facility] [address] [facility] [id number], [place] 255509857 May, [facility] [place] [facility] [address] [facility] [id number], [place] [address]- 6546 May, [facility] [address] [facility] [id number], [place] 204501335 Apr, [facility] [address] [facility] [id number], [place] [address]- 0177 Apr, [facility] [address] [id number] [place] [id number] Mar, [facility] [place] [facility] [address] [facility] [id number], [place] [address]- 3386 Feb, [facility] [address] [id number] [place] 284384259 Feb, [facility] [address] [id number] [place] 320450481 Feb, [facility] [address] [id number] [place] 724769552 Feb, [facility] [place] [facility] [address] [facility] [id number], [place] [address] 2546 Jan, [facility] [address] [id number] [place] 567605104 Jan, [facility] [address] [id number] [place] 516[place]457 Jan, [facility] [address] [facility] [id number], [place] [address]- 2546 Jan, [facility] [address] [id number] [place] 711915705 November, [facility] [address] [id number], [place] 518642629 November, [facility] [address] [facility] [id number], [place] [address]- 2546 November, [facility] [address] [id number] [place] 468409273 November, [facility] [address] [id number] [place] 412574981 Oct, [facility] [address] [id number] [place] 614418884 Oct, [facility] [address] [id number] [place] 661530777 Sep, [facility] [address] [id number] [place] 651055887 Sep, [facility] [address] [id number] [place] 510857120 Aug, [facility] [address] [id number] [place] 441411221 Jul, [facility] [address] [id number] [place] 657634297 Jun, [facility] [place] [facility] [address] [facility] [id number], [place] [address]- 1400 Jun, [facility] [place] [facility] [address] [facility] [id number], [place] 147871- 7846 May, [facility] [place] [facility] [address] [facility] [id number], [place] [address]- 5698 May, [facility] [address] [id number], [place] [address]257[address] May, [facility] [id number] [place] [address] [id number] May, [facility] [place] [facility] [address] [facility] [id number], [place] [address]- 6898 May, [facility] [place] [facility] [address]00565[address], [place] [address]- 7147 May, [facility] [address] [id number], [place] 841159205 May, [facility] [place] [facility] [address]65[address], [place] 483[address]- 8097 May, [facility] [address] [id number], [place] [id number] May, [facility] [place] [facility] [address] [facility] [id number], [place] [address]- 0744 May, [facility] [address] [facility] [id number], [place] 873016182 May, [facility] [place] [facility] [address]65[address], [place] 169[place]- 6587 May, [facility] [address] [id number], [place] 510080087 May, [facility] [address] [facility] [id number], [place] [address]- 4416 May, [facility] [place] [facility] [address] [facility] [id number], [place] [address]- 7157 Apr, [facility] [address] [facility] [id number], [place] [address]- 8446 Apr, [facility] [place] [facility] [address] [facility] [id number] [place] [address] 04881- 4299 Apr, [facility] [address] [facility] [id number], [place] [address]- 7914 Apr, [facility] [id number], [place] 296079118 Apr, [facility] [place] [facility] [address]00565[address], [place] [address]- 3446 Apr, [facility] [address] [id number], [place] 019157014 Apr, [facility] [address] [id number], [place] 054723846 Mar, [facility] [address] [id number] [place] [address] [id number] Mar, [facility] [address] [id number], [place] 718633856 Feb, [facility] [address] [id number], [place] 447027953 Jan, [facility] [address] [id number], [place] 073430203 Dec, [facility] [address] [id number], [place] 518512028 Dec, [facility] [address] [id number], [place] 533424272 November, [facility] [address] [id number], [place] 572670384 November, [facility] [address] [id number], [place] 462272777 November, [facility] [address] [facility] [id number], [place] [address]- 4277 November, [facility] [address] [id number] [place] 574898979 November, [facility] [address] [id number] [place] 550404910 November, [facility] [address] [id number] [place] 296190185 November, [facility] [address] [id number] [place] 080227296 Oct, [facility] [address] [id number] [place] 245042585 Oct, [facility] [address] [id number] [place] 683348646 Oct, [facility] [address] [id number] [place] 058425969 Oct, [facility] [address] [id number] [place] 800650586 Oct, [facility] [address]00565[address], [place] [address]- 2991 Oct, [facility] [address] [id number] [place] 218696817 Oct, [facility] [address] [id number] [place] 791163882 Oct, [facility] [address] [id number] [place] 431886023 Sep, [facility] [address] [id number] [place] 254206703 Aug, [facility] [address] [id number] [place] 974133934 Aug, [facility] [address] [id number] [place] 383436986 Jul, [facility] [address] [id number], [place] 814070634 Jul, [facility] [address]00565[address], [place] [address]- 6507 Jul, [facility] [address] [id number] [place] 733014144 Jul, [facility] [address] [id number] [place] [address]- 2086 Jun, [facility] [place] [facility] [address] [id number] [place] [address]- 8203 Jun, [facility] [place] [facility] [address] [id number] [place] [address]- 7339 May, [facility] [place] [facility] [address] [id number] [place] [address]- 8690 Apr, [facility] [place] [facility] [address] [id number] [place] [address]- 3426 Apr, [facility] [address] [id number] [place] [address]- 1816 Jan, [facility] [address] [id number], [place] [address]- 8820 Dec, [facility] [place] [facility] [address] [id number] [place] [address]- 5612 Aug, [facility] [address] [id number], [place] [address]- 8362 Jun, [facility] [place] [facility] [address] [id number], [place] [address]- 4101 Jun, [facility] [place] [facility] [address] [id number], [place] [address]- 0577 Jun, [facility] [place] [facility] [address] [id number], [place] [address]- 6928 Jun, [facility] [place] [facility] [address] [id number], [place] [address]- 1394 Jun, [facility] [place] [facility] [address] [facility] [id number], [place] [address]- 0118 15 May, 2010 [facility] [place] [facility] [address] [id number], [place] [address]- 2546 May, [facility] [address]65[address], [place] [address]- 0966 May, [facility] [id number], [place] [address]- 1956 Apr, [facility] [address]65[address], [place] [address]- 9796 Apr, [facility] [address]00565100[place], [place] [address]- 6084 Apr, [facility] [address]65100[place], [place] [address]- 4816 Apr, [facility] [address]65100[place], [place] [address]- 9836 Mar, [facility] [address]65[address], [place] [address]- 0416 Jun, [facility] [id number], [place] [address]- 4019 Jun, [facility] [id number], [place] [address]- 1045 Jun, IMMUNIZATIONS No Known Immunizations SOCIAL HISTORY Never Assessed REASON FOR VISIT [facility] PLAN OF CARE [...]
--- OUTSIDE RECORDS SUMMARY | 2018-12-08 19:19 | XMS REPORT ---
Author Author Migration, Doctor Organization [facility] Address Unknown Phone Unavailable Care Team Providers Care Cover Assembler Name Role Phone Migration, Doctor Unavailable Unavailable PROBLEMS Type Condition ICD9-CM Code QDO39-RS Code Onset Dates Condition Status SNOMED Code Problem ETOH abuse F10.10 Active 85530870 Problem Mild episode of recurrent major depressive disorder F33.0 Active [id number] ALLERGIES No Information ENCOUNTERS Encounter Location Date Diagnosis [facility] [address] [address] May, [facility] [id number] [place] [address]24- 7984 May, Mild episode of recurrent major depressive disorder F33.0 ; Elevated blood pressure reading R03.0 ; Screening for hyperlipidemia Z13.220 ; Screening for thyroid disorder Z13.29 ; Screening for diabetes mellitus Z13.1 and History of seizures Z87.[id number] [place] [id number] Jul, [facility] [address] [address]- [address] Oct, [facility] [id number] [place] [address]6538- 1972 Oct, [facility] [id number] [place] [address] [id number] Sep, [facility] [id number] [place] [address] 57782- 1283 Sep, [facility] [id number] [place] [address] 42786- 8562 Aug, [facility] [id number] [place] [address] [id number] Aug, [facility] [id number] [place] [address] 27420- 2546 Aug, [facility] [address] [id number] [address] 25[address] Aug, [facility] [address] [facility] [id number] [id number] Aug, [facility] [place] [facility] [address] [facility] [id number] [place] [address]- 2546 Aug, [facility] [place] [facility] [address] [facility] [id number] [place] [address]- 2546 Aug, [facility] [address] [facility] [id number] [place] [id number] Jul, [facility] [place] [facility] [address] [facility] [id number] [place] [address]- 4956 Jul, [facility] [place] [facility] [address] [facility] [id number] [place] [address]- 1156 Jul, [facility] [place] [facility] [address] [facility] [id number] [place] [address]- 6006 Jul, [facility] [address] [facility] [id number] [id number] Jul, [facility] [place] [facility] [address] [facility] [id number] [place] [address]- 6336 Jul, [facility] [place] [facility] [address] [facility] [id number] [place] [address]- 4036 Jun, [facility] [place] [facility] [address] [facility] [id number] [place] [address]- 2546 Jun, [facility] [address] [facility] [id number] [place] [id number] Jun, [facility] [place] [facility] [address] [facility] [id number] [place] [address]- 2546 Jun, [facility] [address] [facility] [id number] AFB[place] [id number] Jun, [facility] [place] [facility] [address] [facility] [id number] [place] [address]- 2546 Jun, [facility] [place] [facility] [address] [id number] [place] [address]- 8463 Jun, [facility] [place] [facility] [address] [id number] [place] [address]- 5716 May, [facility] [place] [facility] [address] [facility] [id number] [place] [address]- 8126 May, [facility] [address] [facility] [id number] [place] [id number] May, [facility] [place] [facility] [address] [id number] [place] [address]- 1571 May, [facility] [place] [facility] [address] [facility] [id number] [place] [address]- 0966 Apr, [facility] [place] [facility] [address] [facility] [id number] [place] [address]- 5268 Apr, [facility] [address] [facility] [id number] [place] [id number] Apr, [facility] [place] [facility] [address] [id number] [place] [address]- 2117 Apr, [facility] [place] [facility] [address] [facility] [id number] [place] [address]- 6331 Mar, [facility] [place] [facility] [address] [facility] [id number] [place] [address]- 3573 Mar, [facility] [place] [facility] [address] [facility] [id number] [place] [address]- 4386 Mar, [facility] [place] [facility] [address] [id number] [place] [address]- 5148 Mar, [facility] [address] [facility] [id number] AF[place] 9[place]36[place] Mar, [facility] [place] [facility] [address] [facility] [id number] [place] [address]- 2546 Mar, [facility] [address] [facility] [id number] [place] 708[place]2835 Mar, [facility] [place] [facility] [address] [id number] [place] [address]- 5777 Mar, [facility] [place] [facility] [address] [id number] [place] [address]- 2910 Feb, [facility] [place] [facility] [address] [id number] [place] [address]- 9050 Feb, [facility] [place] [facility] [address] [id number] [place] [address]- 3560 Feb, [facility] [place] [facility] [address] [id number] [place] [address]- 3817 Feb, [facility] [place] [facility] [address] [id number] [place] [address]- 3974 Feb, [facility] [place] [facility] [address] [id number] [place] [address]- 7464 Feb, [facility] [address] [facility] [id number] AF[place] 8[place]22[place] Feb, [facility] [place] [facility] [address] [id number] [place] [address]- 0883 Feb, [facility] [place] [facility] [address] [id number] [place] [address]- 7842 Jan, [facility] [place] [facility] [address] [id number] [place] [address]- 7621 Jan, [facility] [address] [facility] [id number] AF[place] 228932148 Jan, [facility] [place] [facility] [address] [id number] [place] [address]- 4188 Jan, [facility] [place] [facility] [address] [id number] [place] [address]- 2306 Dec, [facility] [address] [id number] [place] [id number] Dec, [facility] [address] [facility] [id number] [place] 877253693 November, [facility] [place] [facility] [address] [facility] [id number] [place] [address]- 0301 November, [facility] [address] [id number] [place] 078[address]108 November, [facility] [place] [facility] [address] [facility] [id number] [place] [address]- 3935 November, [facility] [place] [facility] [address] [facility] [id number] [place] [address]- 5076 Oct, [facility] [address] [id number] [place] [id number] Oct, [facility] [address] [id number] [place] [id number] Oct, [facility] [place] [facility] [address] [facility] [id number] [place] [address]- 0697 Oct, [facility] [address] [facility] [id number] [place] [id number] Oct, [facility] [place] [facility] [address] [id number] [address]- 1339 Oct, [facility] [address] [facility] [id number] [place] 845015803 Oct, [facility] [place] [facility] [address]65100[place] [address]- 5024 Oct, [facility] [place] [facility] [address]65100[place] [address]- 6594 Oct, [facility] [address] [facility] [id number] [place] [id number] Oct, [facility] [place] [facility] [address] [facility] [id number] [place] [address]- 7577 Oct, [facility] [address] [facility] [id number] [place] [id number] Oct, [facility] [address] [facility] [id number] [place] [id number] Sep, [facility] [place] [facility] [address] [facility] [id number] [place] [address]- 0035 Sep, [facility] [place] [facility] [address] [id number] [place] [address]- 0936 Sep, [facility] [address] [id number] [place] [id number] Sep, [facility] [address] [id number] [place] 737782761 Sep, [facility] [place] [facility] [address] [facility] [id number] [place] [address]- 8866 Sep, [facility] [address] [id number] [place] 828787585 Aug, [facility] [place] [facility] [address] [facility] [id number] [place] [address]- 9246 Aug, [facility] [address] [facility] [id number] [place] [id number] Aug, [facility] [place] [facility] [address] [facility] [id number] [address]- 3916 Aug, [facility] [place] [facility] [address] [facility] [id number] [address]- 0000 Aug, [facility] [place] [facility] [address] [facility] [id number] [place] [address]- 1444 Aug, [facility] [address] [facility] [id number] AF[place] [id number] Jul, [facility] [place] [facility] [address] [facility] [id number] [place] [address]- 9551 Jul, [facility] [address] [facility] [id number] AFB[place] [id number] Jun, [facility] [place] [facility] [address] [facility] [id number] [address]- 5806 Jun, [facility] [address] [facility] [id number] AF[place] [id number] May, [facility] [place] [facility] [address] [facility] [id number] [place] [address]- 6456 May, [facility] [address] [facility] [id number] AF[place] [id number] Apr, [facility] [address] [facility] [id number] [address]- 4447 Apr, [facility] [address] [id number] [place] [id number] Mar, [facility] [place] [facility] [address] [facility] [id number] [place] [address]- 2766 Feb, [facility] [address] [id number] [place] [id number] Feb, [facility] [address] [id number] [place] [id number] Feb, [facility] [address] [id number] [place] [id number] Feb, [facility] [place] [facility] [address] [facility] [id number] [place] [address] 2546 Jan, [facility] [address] [id number] [place] [id number] Jan, [facility] [address] [id number] [place] [id number] Jan, [facility] [address] [facility] [id number] [place] [address]- 2546 Jan, [facility] [address] [id number] [place] [id number] November, [facility] [address] [id number] AFB[place] 175832599 November, [facility] [address] [facility] [id number] [place] [address]- 2546 November, [facility] [address] [id number] [place] [id number] November, [facility] [address] [id number] [place] 269518143 Oct, [facility] [address] [id number] [place] [id number] Oct, [facility] [address] [id number] [place] 203638364 Sep, [facility] [address] [id number] [place] 665363659 Sep, [facility] [address] [id number] [place] [id number] Aug, [facility] [address] [id number] [place] [id number] Jul, [facility] [address] [id number] [place] 186919351 Jun, [facility] [place] [facility] [address] [facility] [id number] [address]- 5220 Jun, [facility] [place] [facility] [address] [facility] [id number] [place]- 5759 May, [facility] [place] [facility] [address] [facility] [id number] [address]- 9438 May, [facility] [address] [id number] [place] [id number] May, [facility] [id number] [place] [address] [id number] May, [facility] [place] [facility] [address] [facility] [id number] [place] [address]- 0716 May, [facility] [place] [facility] [address] [address]- 3383 May, [facility] [address] [id number] [place] 906635160 May, [facility] [place] [facility] [address]- 2572 May, [facility] [address] [id number] AFB[place] 896187568 May, [facility] [place] [facility] [address] [facility] [id number] [place] [address]- 1364 May, [facility] [address] [facility] [id number] AF[place] 404803295 May, [facility] [place] [facility] [address]- 2293 May, [facility] [address] [id number] AF[place] [id number] May, [facility] [address] [facility] [id number] [address]- 4146 May, [facility] [place] [facility] [address] [facility] [id number] [place] [address]- 2058 Apr, [facility] [address] [facility] [id number] [address]- 1663 Apr, [facility] [place] [facility] [address] [facility] [id number] [place] [address] 13498- 7911 Apr, [facility] [address] [facility] [id number] [address]- 9097 Apr, [facility] [address] [facility] [id number] AF[place] 229816039 Apr, [facility] [place] [facility] [address] [address]- 2066 Apr, [facility] [address] [id number] AF[place] 287734494 Apr, [facility] [address] [id number] AF[place] 458101091 Mar, [facility] [address] [id number] [place] [address] [id number] Mar, [facility] [address] [id number] AF[place] 767633951 Feb, [facility] [address] [id number] AFB[place] 143980188 Jan, [facility] [address] [id number] AFB[place] 501526097 Dec, [facility] [address] [id number] AF[place] 934354820 Dec, [facility] [address] [id number] AF[place] 182727400 November, [facility] [address] [id number] [place] [id number] November, [facility] [address] [id number] AF[place] 826240670 November, [facility] [address] [facility] [id number] [place] [address]- 3566 November, [facility] [address] [id number] [place] 205900303 November, [facility] [address] [id number] [place] 132637358 November, [facility] [address] [id number] [place] 780918511 November, [facility] [address] [id number] [place] [id number] Oct, [facility] [address] [id number] [place] [id number] Oct, [facility] [address] [id number] [place] [id number] Oct, [facility] [address] [id number] [place] 177127968 Oct, [facility] [address] [id number] [place] [id number] Oct, [facility] [address] [address]- 3407 Oct, [facility] [address] [id number] [place] [id number] Oct, [facility] [address] [id number] [place] [id number] Oct, [facility] [address] [id number] [place] 959304173 Sep, [facility] [address] [id number] [place] [id number] Aug, [facility] [address] [id number] [place] 388130850 Aug, [facility] [address] [id number] [place] [id number] Jul, [facility] [address] [id number] AF[place] 767684674 Jul, [facility] [id number] [address]- 2258 Jul, [facility] [address] [id number] [place] [id number] Jul, [facility] [address] [id number] [place] [address]- 5160 Jun, [facility] [place] [facility] [address] [id number] [place] [address]- 6311 Jun, [facility] [place] [facility] [address] [id number] [place] [address]- 3386 May, [facility] [place] [facility] [address] [id number] [place] [address]- 5485 Apr, [facility] [place] [facility] [address] [id number] [place] [address]- 2415 Apr, [facility] [address] [id number] [place] [address]- 3288 Jan, [facility] [address] [id number] [place] [address]- 5407 Dec, [facility] [place] [facility] [address] [id number] [place] [address]- 0806 Aug, [facility] [address] [id number] [address]- 7441 Jun, [facility] [place] [facility] [address] [id number] [place] [address]- 5210 Jun, [facility] [place] [facility] [address] [id number] [place] [address]- 2910 Jun, [facility] [place] [facility] [address] [id number] [address]- 3868 Jun, [facility] [place] [facility] [address] [id number] [place] [address]- 8255 Jun, [facility] [place] [facility] [address] [facility] [id number] [address]- 1002 15 May, 2010 [facility] [place] [facility] [address] [id number] [address]- 2546 May, [facility] [id number] [address]- 5956 May, [facility] [id number] [address]- 1556 Apr, [facility] [id number] [address]- 6606 Apr, [facility] [id number] [address] Apr, [facility] [id number] [address] Apr, [facility] [id number] [address] Mar, [facility] [id number] [address] Jun, [facility] [id number] [address] Jun, [facility] [id number] [address] Jun, IMMUNIZATIONS No Known Immunizations SOCIAL HISTORY Never Assessed REASON FOR VISIT [facility] [place] PLAN OF CARE [...]
--- OUTSIDE RECORDS SUMMARY | 2018-12-08 19:20 | XMS REPORT ---
Author Author JESE JIMENEZ Organization [facility] Address [address] [place] [address] Care Team Providers Care Flasher Adjuster Name Role Phone JULISA JIMENEZTA Unavailable PROBLEMS Type Condition ICD9-CM Code ZQB44-NH Code Onset Dates Condition Status SNOMED Code Problem Mild episode of recurrent major depressive disorder F33.0 Active [id number] ALLERGIES No Information ENCOUNTERS Encounter Location Date Diagnosis [facility] [id number] [place] [address]30- 1529 May, [facility] [id number] [place] [address] 85307- 3560 May, Mild episode of recurrent major depressive disorder F33.0 ; Elevated blood pressure reading R03.0 ; Screening for hyperlipidemia Z13.220 ; Screening for thyroid disorder Z13.29 ; Screening for diabetes mellitus Z13.1 and History of seizures Z87.898 [facility] [id number] [place] [address] [id number] Jul, [facility] [id number] [place] [address] 23358- 1208 Oct, [facility] [id number] [place] [address] 08937- 5253 Oct, [facility] [id number] [place] [address] [id number] Sep, [facility] [id number] [place] [address] 15537- 5634 Sep, [facility] [id number] [place] [address] 44621286- 7461 Aug, [facility] [id number] [place] [address] [id number] Aug, [facility] [id number] [address] Aug, 2014 [facility] [address] [facility] [id number], [place] [address]- 5696 Aug, 2014 [facility] [address] [facility] [id number][place] [id number] Aug, [facility] [place] [facility] [address] [facility] [id number], [place] [address]- 0656 Aug, [facility] [place] [facility] [address] [facility] [id number], [place] [address]- 2546 Aug, [facility] [address] [facility] [id number], [place] [id number] Jul, [facility] [place] [facility] [address] [facility] [id number], [place] [address]- 3356 Jul, [facility] [place] [facility] [address] [facility] [id number], [place] [address]- 9776 Jul, [facility] [place] [facility] [address] [facility] [id number], [place] [address]- 5239 Jul, [facility] [address] [id number][place] [id number] Jul, [facility] [place] [facility] [address] [facility] [id number], [place] [address]- 6446 Jul, [facility] [place] [facility] [address] [facility] [id number], [place] [address]- 3536 Jun, [facility] [place] [facility] [address] [facility] [id number], [place] [address]- 2546 Jun, [facility] [address] [facility] [id number], [place] [id number] Jun, [facility] [place] [facility] [address] [facility] [id number], [place] [address]- 2546 Jun, [facility] [address] [facility] [id number], [place] [id number] Jun, [facility] [place] [facility] [address] [facility] [id number], [place] [address]- 8916 Jun, [facility] [place] [facility] [address] [facility] [id number], [place] [address]- 7266 Jun, [facility] [place] [facility] [address] [facility] [id number], [place] [address]- 2346 May, [facility] [place] [facility] [address] [facility] [id number], [place] [address]- 9646 May, [facility] [address] [facility] [id number], [place] [id number] May, [facility] [place] [facility] [address] [facility] [id number] [place] [address]- 5639 May, [facility] [place] [facility] [address] [facility] [id number], [place] [address]- 3917 Apr, [facility] [place] [facility] [address] [facility] [id number], [place] [address]- 9307 Apr, [facility] [address] [facility] [id number], [place] [id number] Apr, [facility] [place] [facility] [address] [facility] [id number], [place] [address]- 0837 Apr, [facility] [place] [facility] [address] [facility] [id number], [place] [address]- 8791 Mar, [facility] [place] [facility] [address] [facility] [id number], [place] [address]- 8594 Mar, [facility] [place] [facility] [address] [facility] [id number], [place] [address]- 5136 Mar, [facility] [place] [facility] [address] [facility] [id number], [place] [address]- 7811 Mar, [facility] [address] [facility] [id number], [place] [id number] Mar, [facility] [place] [facility] [address] [facility] [id number], [place] [address]- 2546 Mar, [facility] [address] [facility] [id number], [place] [id number] Mar, [facility] [place] [facility] [address] [id number] [place] [address]- 1510 Mar, [facility] [place] [facility] [address] [id number] [place] [address]- 8481 Feb, [facility] [place] [facility] [address] [id number] [place] [address]- 5612 Feb, [facility] [place] [facility] [address] [id number] [place] [address]- 6978 Feb, [facility] [place] [facility] [address] [id number] [place] [address]- 8809 Feb, [facility] [place] [facility] [address] [facility] [id number] [place] [address]- 6092 Feb, [facility] [place] [facility] [address] [id number] [place] [address]- 4548 Feb, [facility] [address] [facility] [id number], [place] [id number] Feb, [facility] [place] [facility] [address] [facility] [id number] [place] [address]- 5625 Feb, [facility] [place] [facility] [address] [facility] [id number], [place] [address]- 7830 Jan, [facility] [place] [facility] [address] [facility] [id number], [place] [address]- 5004 Jan, [facility] [address] [id number], [place] [id number] Jan, [facility] [place] [facility] [address] [id number], [place] [address]- 1724 Jan, [facility] [place] [facility] [address] [facility] [id number], [place] [address]- 3456 Dec, [facility] [address] [id number], [place] 718150866 Dec, [facility] [address] [id number], [place] [id number] November, [facility] [place] [facility] [address] [id number] [place] [address]- 4979 November, [facility] [address] [id number] [place] [id number] November, [facility] [place] [facility] [address] [facility] [id number] [place] [address]- 3556 November, [facility] [place] [facility] [address] [facility] [id number] [place] [address]- 7653 Oct, [facility] [address] [id number] [place] [id number] Oct, [facility] [address] [id number] [place] [id number] Oct, [facility] [place] [facility] [address] [facility] [id number] [place] [address]- 6027 Oct, [facility] [address] [facility] [id number] [place] [id number] Oct, [facility] [place] [facility] [address] [facility] [id number], [place] [address]- 8377 Oct, [facility] [address] [facility] [id number] [place] [id number] Oct, [facility] [place] [facility] [address] [facility] [id number], [place] [address]- 4177 Oct, [facility] [place] [facility] [address] [facility] [id number], [place] [address]- 8221 Oct, [facility] [address] [facility] [id number], [place] [id number] Oct, [facility] [place] [facility] [address] [facility] [id number] [place] [address]- 0839 Oct, [facility] [address] [id number] [place] [id number] Oct, [facility] [address] [facility] [id number] [place] [id number] Sep, [facility] [place] [facility] [address] [facility] [id number] [place] [address]- 5808 Sep, [facility] [address] [facility] [id number], [place] [address]- 7839 Sep, [facility] [address] [id number] [place] [id number] Sep, [facility] [address] [id number] [place] 170304941 Sep, [facility] [address] [facility] [id number], [place] [address]- 4308 Sep, [facility] [address] [id number] [place] 530055238 Aug, [facility] [place] [facility] [address] [facility] [id number], [place] [address]- 5727 Aug, [facility] [address] [facility] [id number], [place] [id number] Aug, [facility] [address] [facility] [id number], [place] [address]- 0619 Aug, [facility] [place] [facility] [address] [facility] [id number] [address]- 7344 Aug, [facility] [place] [facility] [address] [facility] [id number][place] [address]- 7562 Aug, [facility] [address] [facility] [id number], [place] 879395956 Jul, [facility] [place] [facility] [address] [facility] [id number], [place] [address]- 5168 Jul, [facility] [address] [facility] [id number], [place] [id number] Jun, [facility] [place] [facility] [address] [facility] [id number], [place] [address]- 5526 Jun, [facility] [address] [facility] [id number], [place] [id number] May, [facility] [place] [facility] [address] [facility] [id number], [place] [address]- 0515 May, [facility] [address] [facility] [id number], [place] 425600664 Apr, [facility] [address] [id number], [place] [address]- 2546 Apr, [facility] [address] [id number] [place] [id number] Mar, [facility] [address] [facility] [id number], [place] [address]- 2546 Feb, [facility] [address] [id number] [place] 688786667 Feb, [facility] [address] [id number] [place] [id number] Feb, [facility] [address] [id number] [place] 032810680 Feb, [facility] [address] [facility] [id number], [place] [address]- 5986 Jan, [facility] [address] [id number] [place] [id number] Jan, [facility] [address] [id number] [place] 843815206 Jan, [facility] [address] [facility] [id number], [place] [address] 2546 Jan, [facility] [address] [id number] [place] 885795578 November, [facility] [address] [id number] [place] 934150401 November, [facility] [address] [facility] [id number], [place] [address]- 2546 November, [facility] [address] [id number] [place] 3179[place]647 November, [facility] [address] [id number] [place] 532347840 Oct, [facility] [address] [id number] [place] [id number] Oct, [facility] [address] [id number] [place] [id number] Sep, [facility] [address] [id number] [place] 259881569 Sep, [facility] [address] [id number] [place] 829110234 Aug, [facility] [address] [id number] [place] [id number] Jul, [facility] [address] [id number] [place] [id number] Jun, [facility] [place] [facility] [address] [facility] [id number], [place] [address]- 3302 Jun, [facility] [place] [facility] [address] [facility] [id number], [place] [address]- 7772 May, [facility] [place] [facility] [address] [facility] [id number], [place] [address]- 4910 May, [facility] [address] [facility] [id number], [place] [id number] May, [facility] [address] [facility] [id number], [place] 850234680 May, [facility] [place] [facility] [address] [facility] [id number], [place] [address]- 7048 May, [facility] [place] [facility] [address]65100[place], [place] [address]- 5135 May, [facility] [address] [facility] [id number], [place] [id number] May, [facility] [place] [facility] [address] [facility] [id number], [place] [address]- 4353 May, [facility] [address] [id number], [place] 786616604 May, [facility] [place] [facility] [address] [facility] [id number], [place] [address]- 8528 May, [facility] [address] [id number], [place] 616838970 May, [facility] [place] [facility] [address] [id number] [address]- 4970 May, [facility] [address] [id number], [place] 083770103 May, [facility] [address] [facility] [id number], [place] [address]- 5446 May, [facility] [address] [facility] [id number], [place] [address]- 3536 Apr, [facility] [address] [facility] [id number], [place] [address]- 4058 Apr, [facility] [address] [facility] [id number], [place] [address]- 6399 Apr, [facility] [address] [facility] [id number], [place] [address]- 6795 Apr, [facility] [address] [id number], [place] [id number] Apr, [facility] [address]00565100[place], [place] [address]- 1986 Apr, [facility] [address] [id number], [place] 757951864 Apr, [facility] [address] [id number], [place] 908695220 Mar, [facility] [address] [id number], [place] 394804411 Mar, [facility] [address] [id number], [place] 112564295 Feb, [facility] [address] [id number], [place] 071377282 Jan, [facility] [address] [id number], [place] 850124929 Dec, [facility] [address] [id number], [place] 951265788 Dec, [facility] [address] [id number], [place] 820928083 November, [facility] [address] [id number], [place] 939141200 November, [facility] [id number] [place] [address] [id number] November, [facility] [address] [facility] [id number], [place] [address]- 1650 November, [facility] [address] [id number] [place] 015521013 November, [facility] [address] [id number] [place] 970478433 November, [facility] [address] [id number] [place] [id number] November, [facility] [address] [id number] [place] 793852658 Oct, [facility] [address] [id number] [place] 285307514 Oct, [facility] [address] [id number] [place] 783988972 Oct, [facility] [address] [id number] [place] 663424971 Oct, [facility] [address] [id number] [place] 482199667 Oct, [facility] [address]100[place], [place] [address]- 4573 Oct, [facility] [address] [id number] [place] [id number] Oct, [facility] [address] [id number], [place] 495966114 Oct, [facility] [address] [id number], [place] 243950071 Sep, [facility] [address] [id number], [place] 377697115 Aug, [facility] [address] [id number] [place] 122044163 Aug, [facility] [address] [id number] [place] 820706530 Jul, [facility] [address] [id number], [place] 791777289 Jul, [facility] [id number] [place] [address] [place] [address]- 1944 Jul, [facility] [address] [id number], [place] 814238805 Jul, [facility] [address] [id number] [place] [address]- 1814 Jun, [facility] [place] [facility] [address] [id number] [place] [address]- 1536 Jun, [facility] [place] [facility] [address] [id number], [place] [address]- 4916 May, [facility] [place] [facility] [address] [id number] [place] [address]- 5027 Apr, [facility] [place] [facility] [address] [id number] [place]- 2822 Apr, [facility] [place] [facility] [address] [id number] [place] [address]- 0826 Jan, [facility] [place] [facility] [address] [id number] [place] [address]- 7757 Dec, [facility] [place] [facility] [address] [id number] [place] [address]- 9010 Aug, [facility] [place] [facility] [address] [id number] [place] [address]- 4056 Jun, [facility] [place] [facility] [address] [id number], [place] [address]- 9774 Jun, [facility] [place] [facility] [address] [id number], [place] [address]- 9366 Jun, [facility] [place] [facility] [address] [id number] [place] [address]- 4354 Jun, [facility] [place] [facility] [address] [id number] [place] [address]- 7613 Jun, [facility] [place] [facility] [address] [id number] [place] [address]- 3778 15 May, 2010 [facility] [place] [facility] [address] [id number] [address]- 7776 May, [facility] [address]00565100[place], [place] [address]- 7472 May, [facility] [address]00565100[place], [place] [address]- 6256 Apr, [facility] [address]00565100[place], [place] [address]- 7365 Apr, [facility] [address]00565100[place], [place] [address]- 3861 Apr, [facility] [id number] [place] [address]- 0048 Apr, [facility] [address]00565100[place], [place] [address]- 1004 Mar, [facility] [address]00565100[place], [place] [address]- 4284 Jun, [facility] [address]00565100[place], [place] [address]- 0826 Jun, [facility] [address]65100[place], [place] [address]- 4506 Jun, IMMUNIZATIONS No Known Immunizations SOCIAL HISTORY Never Assessed REASON FOR VISIT Intake PLAN OF CARE VITAL SIGNS MEDICATIONS Unknown [...]
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
--- OUTSIDE RECORDS SUMMARY | 2018-12-08 19:21 | XMS REPORT ---
Author Author SANDY DEJESUS Organization [facility] Address [address] [place] [address] Care Team Providers Care Channel Marketing Specialist Name Role Phone DEJESUS, SANDY Unavailable PROBLEMS Type Condition ICD9-CM Code LBF67-SB Code Onset Dates Condition Status SNOMED Code Problem Pulpitis 522.0 Active 78882328 Problem Cyst of Bartholin's gland 616.2 Active 43578358 Problem Unspecified dental caries 521.00 Active 73351423 Problem Bipolar I disorder, most recent episode (or current) manic, unspecified 296.40 Active 90128775 Problem Unspecified episodic mood disorder 296.90 Active 854381853 Problem Acute suppurative otitis media without spontaneous rupture of eardrum 382.00 Active 40251028 Problem Acute maxillary sinusitis 461.0 Active 40856847 Problem Attention deficit disorder of childhood without mention of hyperactivity 314.00 Active 87938899 Problem Unspecified epilepsy without mention of intractable epilepsy 345.90 Active 32003056 Problem Screening for malignant neoplasm of the cervix V76.2 Active 347154355 Problem Need for prophylactic vaccination and inoculation, Influenza V04.81 Active 666924464 Problem Papanicolaou smear of cervix with atypical squamous cells of undetermined significance (ASC-US) 795.01 Active 647584255 Problem Counseling for marital and partner problems, unspecified V61.10 Active 36443431 Problem Cellulitis and abscess of other specified site 682.8 Active 667183436 Problem Encounter for long-term (current) use of other medications V58.69 Active 107384838 Problem Unilateral or unspecified femoral hernia without mention of obstruction or gangrene, unilateral or unspecified 553.00 Active 66467768 ALLERGIES Substance Reaction Event Type Date Status Strattera hallucinations Drug Allergy Jul, Active Codeine Sulfate Unknown Drug Allergy Jul, Active ENCOUNTERS Encounter Location Date Diagnosis [facility] [address] [facility] [id number] [id number] Jul, [facility] [place] [facility] [address] [id number] [address] Oct, [facility] [place] [facility] [address] [facility] [id number] [place] [address] Oct, [facility] [place] [address] [facility] [id number][place] [address] Sep, [facility] [place] [facility] [address] [facility] [id number] [place] [address] Sep, [facility] [place] [facility] [address] [facility] [id number] [place] [address] Aug, [facility] [place] [address] [facility] [id number][place] [id number] Aug, [facility] [place] [facility] [address] [id number] [address] Aug, [facility] [place] [facility] [address]00565100[place] [address] Aug, [facility] [place] [address] [facility] [id number][place] [id number] Aug, [facility] [place] [facility] [address]00565100[place] [address] Aug, [facility] [place] [facility] [address] [id number] [address] Aug, [facility] [place] [id number], [place] [address] Jul, [facility] [place] [facility] [address] [facility] [id number] [place] [address] 58[address] Jul, [facility] [place] [facility] [address] [facility] [id number] [place] [address] 9530 Jul, [facility] [place] [facility] [address] [facility] [id number] [place] [address] 6866 Jul, [facility] [place] [address] [facility] [id number][place] [address] Jul, [facility] [place] [facility] [address] [facility] [id number] [place] [address] Jul, [facility] [place] [facility] [address] [id number] [place] [address] Jun, [facility] [place] [facility] [address] [id number] [place] [address] 8429 Jun, [facility] [place] [address] [facility] [id number][place] [address] Jun, [facility] [place] [facility] [address] [facility] [id number] [place] [address]- 7234 Jun, [facility] [place] [address] [facility] [id number], [place] 198938321 Jun, [facility] [place] [facility] [address] [facility] [id number] [place] [address]- 3921 Jun, [facility] [place] [facility] [address] [facility] [id number] [place] [address]- 1718 Jun, [facility] [place] [facility] [address] [facility] [id number] [place] [address]- 06[address] May, [facility] [place] [facility] [address] [facility] [id number] [place] [address] 1397 May, [facility] [place] [address] [facility] [id number][place] [id number] May, [facility] [place] [facility] [address] [facility] [id number] [place] [address]- 67[address] May, [facility] [place] [facility] [address] [facility] [id number] [place] [address]- 2853 Apr, [facility] [place] [facility] [address] [facility] [id number] [place] [address]- 3657 Apr, [facility] [place] [address] [facility] [id number], [place] [address] Apr, [facility] [place] [facility] [address] [facility] [id number] [place] [address]- [address]607 Apr, [facility] [place] [facility] [address] [facility] [id number] [place] [address] Mar, [facility] [place] [facility] [address] [id number] [place] [address]- 7321 Mar, [facility] [place] [facility] [address] [id number] [place] [address]- 8389 Mar, [facility] [place] [facility] [address] [id number] [place] [address]- 4220 Mar, [facility] [place] [address] [id number] [place] [address] Mar, [facility] [place] [facility] [address] [id number] [place] [address]- 9897 Mar, [facility] [place] [address] [id number] [place] [address] Mar, [facility] [place] [facility] [address] [id number] [place] [address]- 6192 Mar, [facility] [place] [facility] [address] [id number] [place] [address]- 6745 Feb, [facility] [place] [facility] [address] [id number] [place] [address]- 7959 Feb, [facility] [place] [facility] [address] [id number] [place] [address]- 4430 Feb, [facility] [place] [facility] [address] [id number] [place] [address]- 7[address] Feb, [facility] [place] [facility] [address] [id number] [place] [address]- 9004 Feb, [facility] [place] [facility] [address] [id number] [place] [address]- 8801 Feb, [facility] [place] [address] [id number] [place] [address] Feb, [facility] [place] [facility] [address] [id number] [place] [address]- 7085 Feb, [facility] [place] [facility] [address] [id number] [place] [address]- 7078 Jan, [facility] [place] [facility] [address] [id number] [place] [address]- 3167 Jan, [facility] [place] [address] [id number] [id number] Jan, [facility] [place] [facility] [address] [facility] [id number] [place] [address]- 7722 Jan, [facility] [place] [facility] [address] [id number] [place] [address]- 3352 Dec, [facility] [place] [address] [id number] [place] Dec, [facility] [place] [address] [id number] [place] [address] November, [facility] [place] [facility] [address] [facility] [id number] [place] [address] November, [facility] [place] [address] [id number] [place] [address] November, [facility] [place] [facility] [address] [facility] [id number] [place] [address]- 6916 November, [facility] [place] [facility] [address] [facility] [id number] [place] [address]- 8479 Oct, [facility] [place] [address] [id number] [place] [id number] Oct, [facility] [place] [address] [id number] [place] [address] Oct, [facility] [place] [facility] [address] [facility] [id number] [place] [address]- 1334 Oct, [facility] [place] [address] [id number] [place] [id number] Oct, [facility] [place] [facility] [address] [facility] [id number] [place] [address]- 4868 Oct, [facility] [place] [address] [facility] [id number] [place] 136[address] Oct, [facility] [place] [facility] [address] [facility] [id number] [place] [address]- 1663 Oct, [facility] [place] [facility] [address] [facility] [id number] [place] [address]- 4098 Oct, [facility] [place] [address] [facility] [id number] [place] 285[address]757 Oct, [facility] [place] [facility] [address] [id number] [address]- 1086 Oct, [facility] [place] [address] [id number] [place] [address] Oct, [facility] [place] [address] [id number] [place] 9438[address] Sep, [facility] [place] [facility] [address] [place] [address]- 8993 Sep, [facility] [place] [facility] [address]00565100[place] [address]- 7175 Sep, [facility] [place] [id number], [place] [address] Sep, [facility] [place] [address] [facility] [id number] [place] [address] Sep, [facility] [place] [facility] [address]00565100[place] [address]- 9519 Sep, [facility] [place] [address] [id number][place] [address] Aug, [facility] [place] [facility] [address] [id number] [address]- 0725 Aug, [facility] [place] [address] [facility] [id number], [place] [id number] Aug, [facility] [place] [facility] [address]00565[address] [address]- 3666 Aug, [facility] [place] [facility] [address] [id number] [address] 1959 Aug, [facility] [place] [facility] [address] [id number] [address]- 9418 Aug, [facility] [place] [address] [id number] [place] [address] Jul, [facility] [address] [id number] [address]- 3577 Jul, [facility] [place] [address] [id number][place] 538[address] Jun, [facility] [address] [facility] [id number] [place] [address]- 6872 Jun, [facility] [place] [address] [id number][place] [address]0000[address]190 May, [facility] [address] [id number] [place] [address]- 9325 May, [facility] [place] [address] [id number][place] [id number] Apr, [facility] [address] [facility] [id number] [place] [address]- 4070 Apr, [facility] [place] [address] [id number][place] [address]267 Mar, [facility] [address] [facility] [id number] [place] [address]- 6744 Feb, [facility] [place] [address] [id number][place] [address]104[address]117 Feb, [facility] [place] [address] [id number], [place] [address] Feb, [facility] [place] [address] [id number], [place] 551780676 Feb, [facility] [place] [facility] [address] [id number] [place] [address]- 5024 Jan, [facility] [place] [address] [id number], [place] 616995175 Jan, [facility] [place] [address] [id number], [place] 541900885 Jan, [facility] [place] [facility] [address] [facility] [id number] [place] [address]- 8900 Jan, [facility] [place] [address] [id number] [place] [id number] November, [facility] [place] [address] [id number] [place] [address] November, [facility] [address] [facility] [id number] [place] [address]- 3556 November, [facility] [place] [address] [id number] [place] [address] November, [facility] [place] [address] [id number] [place] 84[place]24[address] Oct, [facility] [place] [address] [id number] [place] [address] Oct, [facility] [place] [address] [id number] [place] [address]39652 Sep, [facility] [place] [address] [id number] [place] 408[address] Sep, [facility] [place] [address] [id number] [place] 600[place]481 Aug, [facility] [place] [address] [id number] [place] [address] Jul, [facility] [place] [address] [id number] [place] [address]38[place]3088 Jun, [facility] [place] [facility] [address]00565100[place] [address]- 6664 Jun, [facility] [place] [facility] [address]00565100[place] [address]- 0875 May, [facility] [place] [facility] [address] [facility] [id number] [place] [address]- 4309 May, [facility] [place] [address] [id number] [place] [address] May, [facility] [place] [address] [id number], [place] 840304668 May, [facility] [place] [facility] [address] [facility] [id number] [place] [address]- 7366 May, [facility] [place] [facility] [address]00565100[place] [address]- 0781 May, [facility] [place] [address] [id number][place] [address]98198697 May, [facility] [place] [facility] [address] [facility] [id number] [place] [address]- 3699 May, [facility] [place] [address] [id number][place] [address] May, [facility] [place] [facility] [address] [facility] [id number] [place] [address]- 8096 May, [facility] [place] [address] [id number], [place] 289695878 May, [facility] [place] [facility] [address] [facility] [id number] [place] [address]- 5546 May, [facility] [place] [address] [facility] [id number], [place] 722232408 May, [facility] [place] [facility] [address]00565100[place] [address]- 7527 May, [facility] [place] [facility] [address] [facility] [id number] [place] [address]- 6003 Apr, [facility] [place] [facility] [address] [facility] [id number] [place] [address]- 1230 Apr, [facility] [place] [facility] [address] [facility] [id number] [place] [address]- 0595 Apr, [facility] [place] [facility] [address] [facility] [id number] [place] [address]- 2144 Apr, [facility] [place] [address] [id number], [place] [address]22688 Apr, [facility] [place] [facility] [address] [facility] [id number] [place] [address]- 3517 Apr, [facility] [place] [address] [id number], [place] 54[place]39540 Apr, [facility] [place] [address] [id number], [place] 159305566 Mar, [facility] [place] [address] [id number][place] 808733923 Mar, [facility] [place] [address] [id number] [place] 2[place]95824 Feb, [facility] [place] [address] [id number] [place] 437123426 Jan, [facility] [place] [address] [id number] [place] [address] Dec, [facility] [place] [address] [id number] [place] 237113510 Dec, [facility] [place] [address] [id number] [place] 169824352 November, [facility] [place] [address] [id number] [place] 493225323 November, [facility] [place] [address] [id number] [place] 224332954 November, [facility] [address]00565100[place] [address]- 6894 November, [facility] [place] [address] [id number] [place] [address] November, [facility] [place] [address] [id number] [place] 153583996 November, [facility] [place] [address] [id number] [place] 124987522 November, [facility] [place] [address] [id number] [place] 771995719 Oct, [facility] [place] [address] [id number] [place] 829254071 Oct, [facility] [place] [address] [id number] [place] 493138522 Oct, [facility] [place] [address] [id number] [place] 083515286 Oct, [facility] [place] [address] [id number] [place] 460681963 Oct, [facility] [address]00565100[place] [address]- 7765 Oct, [facility] [place] [address] [id number] [place] [address]1964 Oct, [facility] [place] [address] [id number] [place] 059449667 Oct, [facility] [place] [address] [id number] [place] 496782418 Sep, [facility] [place] [address] [id number] [place] 5856965[address] Aug, [facility] [place] [address] [id number] [place] 790794537 Aug, [facility] [place] [address] [id number] [place] 953322022 Jul, [facility] [place] [address] [id number] [place] 336703149 Jul, [facility] [place] [facility] [address]00565100[place] [address]- 7745 Jul, [facility] [place] [address] [facility] [id number] [place] 228[place]30[address] Jul, [facility] [place] [facility] [address] [id number] [address]- 7505 Jun, [facility] [place] [facility] [id number] [place] [address]68- 4646 Jun, [facility] [place] [facility] [address] [id number] [address]- 4057 May, [facility] [place] [facility] [address]00565100[place] [address]- 6623 Apr, [facility] [place] [facility] [address]00565100[place] [address]- 7827 Apr, [facility] [place] [facility] [address]00565100[place] 375623- 7158 Jan, [facility] [place] [facility] [id number] [place] [address]- 5707 Dec, [facility] [place] [facility] [address]00565100[place] [address]- 2757 Aug, [facility] [place] [facility] [address] [id number] [address]- 1806 23 Jun, [address] [facility] [address] [facility] [id number] [place] [address] [address], [facility] [address] [facility] [id number] [place] [address] 2546 Jun, [facility] [address] [facility] [id number] [place] [address] 2546 Jun, [facility] [address] [id number] [place] [address] [address] Jun, [facility] [address] [facility] [id number] [place] [address] 2546 15 May, 2010 [facility] [address] [facility] [id number] [place] [address] 2546 May, [facility] [address] [facility] [id number] [place] [address]- 6516 May, [facility] [address] [facility] [id number] [place] [address] 2540 18 Apr, 2010 [facility] [address] [facility] [id number] [place] [address]- 2976 Apr, [facility] [address] [facility] [id number] [place] [address] 2546 Apr, [facility] [address] [facility] [id number] [place] [address] 2546 Apr, [facility] [address] [facility] [id number] [place] [address] 2546 10 Mar, [address] [facility] [address] [facility] [id number] [place] [address] 2546 17 Jun, 2009 [facility] [address] [facility] [id number] [place] [address] 2546 14 Jun, [address] [facility] [address] [facility] [id number] [place] [address] 2546 Jun, IMMUNIZATIONS No Known Immunizations SOCIAL HISTORY Never Assessed REASON FOR VISIT [facility] Updated-[facility] PLAN OF CARE VITAL SIGNS MEDICATIONS Medication Instructions Dosage Frequency Start Date End Date Duration Status Adderall 20 mg take 1 tablet by Oral route 2 times per day before breakfast and at noon Sep, Not-Taking RESULTS No Results PROCEDURES No Known procedures INSTRUCTIONS MEDICATIONS ADMINISTERED No Known Medications MEDICAL (GENERAL) HISTORY Type Description Date Medical History anxiety Medical History depression Medical History epilepsy Surgical History bilateral tubal ligation (BTL) Surgical History tonsillectomy Hospitalization History seizures
--- OUTSIDE RECORDS SUMMARY | 2018-12-08 19:23 | XMS REPORT | Continuity of Care Document ---
Author Organization Unknown Address Unknown Allergies Active Description Code Type Severity Reaction Onset Reported/Identified Relationship to Patient Clinical Status Yes codeine Drug Allergy N/A N/A 10/29/2008 Yes Penicillins Drug Allergy N/A N/A 10/29/2008 Yes codeine Drug Allergy 10/29/2008 Yes Penicillins Drug Allergy 10/29/2008 Yes Strattera 40 mg capsule Drug Allergy N/A N/A 11/07/2013 Medications There is no data. Problems Date Dx Coded Attending Type Code Diagnosis Diagnosed By 02/08/2008 MELISA ANGELA MD V22.1 Pc Other Normal 02/08/2008 MELISA ANGELA MD V22.1 Pc Other Normal 02/08/2008 MELISA ANGELA MD V22.1 Pc Other Normal 02/08/2008 V22.1 Pc Other Normal 02/08/2008 V22.1 Pc Other Normal 02/08/2008 V22.1 Pc Other Normal 02/08/2008 MAYNOR PITT DO V22.1 Pc Other Normal 02/08/2008 MAYNOR PITT DO V22.1 Pc Other Normal 02/08/2008 MAYNOR PITT DO V22.1 Pc Other Normal 02/08/2008 SANDY DEJESUS APRN V22.1 Pc Other Normal 02/08/2008 MAYNOR PITT DO V22.1 Pc Other Normal 02/08/2008 SANDY DEJESUS APRN V22.1 Pc Other Normal 02/08/2008 MAYNOR PITT DO V22.1 Pc Other Normal 02/08/2008 MAYNOR PITT DO V22.1 Pc Other Normal 02/08/2008 LATOYA GALE APRN V22.1 Pc Other Normal 02/08/2008 MAYNOR PITT DO V22.1 Pc Other Normal 02/08/2008 MAYNOR PITT DO V22.1 Pc Other Normal 02/08/2008 MAYNOR PITT DO V22.1 Pc Other Normal 02/08/2008 LATOYA GALE APRN V22.1 Pc Other Normal 02/08/2008 MAYNOR PITT DO V22.1 Pc Other Normal 02/08/2008 SANDY DEJESUS APRN V22.1 Pc Other Normal 02/08/2008 GHASSAN MEDELLIN, TEJAL Middleton V22.1 Pc Other Normal 02/08/2008 MAYNOR PITT DO K V22.1 Pc Other Normal 02/08/2008 ISAAC PARISH RN E V22.1 Pc Other Normal 02/08/2008 ISAAC PARISH RN E V22.1 Pc Other Normal 02/08/2008 ISAAC PARISH RN E V22.1 Pc Other Normal 02/08/2008 ISAAC PARISH RN E V22.1 Pc Other Normal 02/08/2008 MAYNOR PITT DO V22.1 Pc Other Normal 02/08/2008 MAYNOR PITT DO V22.1 Pc Other Normal 02/08/2008 MAYNOR PITT DO K V22.1 Pc Other Normal 02/08/2008 ISAAC PARISH RN E V22.1 Pc Other Normal 02/08/2008 ISAAC PARISH RN E V22.1 Pc Other Normal 02/08/2008 ISAAC PARISH RN E V22.1 Pc Other Normal 02/15/2008 MELISA ANGELA MD 787.02 NAUSEA ALONE 02/15/2008 MELISA ANGELA MD 787.02 NAUSEA ALONE 02/15/2008 MELISA ANGELA MD 787.02 NAUSEA ALONE 02/15/2008 787.02 NAUSEA ALONE 02/15/2008 787.02 NAUSEA ALONE 02/15/2008 787.02 NAUSEA ALONE 02/15/2008 MAYNOR PITT DO 787.02 NAUSEA ALONE 02/15/2008 MAYNOR PITT DO 787.02 NAUSEA ALONE 02/15/2008 MAYNOR PITT DO 787.02 NAUSEA ALONE 02/15/2008 SANDY DEJESUS APRN 787.02 NAUSEA ALONE 02/15/2008 MAYNOR PITT DO 787.02 NAUSEA ALONE 02/15/2008 SANDY DEJESUS APRN 787.02 NAUSEA ALONE 02/15/2008 PITT DO, MAYNOR K 787.02 NAUSEA ALONE 02/15/2008 PITT DO, MAYNOR K 787.02 NAUSEA ALONE 02/15/2008 LATOYA GALE APRN 787.02 NAUSEA ALONE 02/15/2008 PITT DO, MAYNOR K 787.02 NAUSEA ALONE 02/15/2008 PITT DO, MAYNOR K 787.02 NAUSEA ALONE 02/15/2008 PITT DO, MAYNOR K 787.02 NAUSEA ALONE 02/15/2008 LATOYA GALE APRN 787.02 NAUSEA ALONE 02/15/2008 PITT DO, MAYNOR K 787.02 NAUSEA ALONE 02/15/2008 SANDY DEJESUS APRN 787.02 NAUSEA ALONE 02/15/2008 TEJAL FISH 787.02 NAUSEA ALONE 02/15/2008 PITT DO, MAYNOR K 787.02 NAUSEA ALONE 02/15/2008 МАРИНА ROBERT, ISAAC E 787.02 NAUSEA ALONE 02/15/2008 МАРИНА ROBERT, ISAAC E 787.02 NAUSEA ALONE 02/15/2008 МАРИНА ROBERT, ISAAC E 787.02 NAUSEA ALONE 02/15/2008 МАРИНА ROBERT, ISAAC E 787.02 NAUSEA ALONE 02/15/2008 PITT DO MAYNOR K 787.02 NAUSEA ALONE 02/15/2008 PITT DO MAYNOR K 787.02 NAUSEA ALONE 02/15/2008 PITT DO, MAYNOR K 787.02 NAUSEA ALONE 02/15/2008 МАРИНА ROBERT, ISAAC E 787.02 NAUSEA ALONE 02/15/2008 МАРИНА ROBERT, ISAAC E 787.02 NAUSEA ALONE 02/15/2008 МАРИНА ROBERT, ISAAC E 787.02 NAUSEA ALONE 10/30/2008 MELISA ANGELA MD V25.9 CONTRACEPTIVE MANAGEMENT, UNSPECIFIED 10/30/2008 MELISA ANGELA MD V25.9 CONTRACEPTIVE MANAGEMENT, UNSPECIFIED 10/30/2008 MELISA ANGELA MD V25.9 CONTRACEPTIVE MANAGEMENT, UNSPECIFIED 10/30/2008 V25.9 CONTRACEPTIVE MANAGEMENT, UNSPECIFIED 10/30/2008 V25.9 CONTRACEPTIVE MANAGEMENT, UNSPECIFIED 10/30/2008 V25.9 CONTRACEPTIVE MANAGEMENT, UNSPECIFIED 10/30/2008 MAYNOR PITT DO V25.9 CONTRACEPTIVE MANAGEMENT, UNSPECIFIED 10/30/2008 MAYNOR PITT DO V25.9 CONTRACEPTIVE MANAGEMENT, UNSPECIFIED 10/30/2008 PITT DO, MAYNOR K V25.9 CONTRACEPTIVE MANAGEMENT, UNSPECIFIED 10/30/2008 SANDY DEJESUS APRN V25.9 CONTRACEPTIVE MANAGEMENT, UNSPECIFIED 10/30/2008 PITT DO, MAYNOR K V25.9 CONTRACEPTIVE MANAGEMENT, UNSPECIFIED 10/30/2008 SANDY DEJESUS APRN V25.9 CONTRACEPTIVE MANAGEMENT, UNSPECIFIED 10/30/2008 PITT DO, MAYNOR K V25.9 CONTRACEPTIVE MANAGEMENT, UNSPECIFIED 10/30/2008 PITT DO, MAYNOR K V25.9 CONTRACEPTIVE MANAGEMENT, UNSPECIFIED 10/30/2008 GIDEON GALE APRNE E V25.9 CONTRACEPTIVE MANAGEMENT, UNSPECIFIED 10/30/2008 PITT DO, MAYNOR K V25.9 CONTRACEPTIVE MANAGEMENT, UNSPECIFIED 10/30/2008 PITT DO, MAYNOR K V25.9 CONTRACEPTIVE MANAGEMENT, UNSPECIFIED 10/30/2008 PITT DO, MAYNOR K V25.9 CONTRACEPTIVE MANAGEMENT, UNSPECIFIED 10/30/2008 LATOYA GALE APRN E V25.9 CONTRACEPTIVE MANAGEMENT, UNSPECIFIED 10/30/2008 PITT DO, MAYNOR K V25.9 CONTRACEPTIVE MANAGEMENT, UNSPECIFIED 10/30/2008 SANDY DEJESUS APRN V25.9 CONTRACEPTIVE MANAGEMENT, UNSPECIFIED 10/30/2008 TEJAL FISH V25.9 CONTRACEPTIVE MANAGEMENT, UNSPECIFIED 10/30/2008 PITT DO, MAYNOR K V25.9 CONTRACEPTIVE MANAGEMENT, UNSPECIFIED 10/30/2008 ISAAC PARISH RN E V25.9 CONTRACEPTIVE MANAGEMENT, UNSPECIFIED 10/30/2008 МАРИНА ROBERT, ISAAC E V25.9 CONTRACEPTIVE MANAGEMENT, UNSPECIFIED 10/30/2008 МАРИНА ROBERT, ISAAC E V25.9 CONTRACEPTIVE MANAGEMENT, UNSPECIFIED 10/30/2008 МАРИНА ROBERT, ISAAC E V25.9 CONTRACEPTIVE MANAGEMENT, UNSPECIFIED 10/30/2008 PITT DO, MAYNOR K V25.9 CONTRACEPTIVE MANAGEMENT, UNSPECIFIED 10/30/2008 PITT DO, MAYNOR K V25.9 CONTRACEPTIVE MANAGEMENT, UNSPECIFIED 10/30/2008 PITT DO, MAYNOR K V25.9 CONTRACEPTIVE MANAGEMENT, UNSPECIFIED 10/30/2008 ISAAC PARISH RN E V25.9 CONTRACEPTIVE MANAGEMENT, UNSPECIFIED 10/30/2008 МАРИНА ROBERT, ISAAC E V25.9 CONTRACEPTIVE MANAGEMENT, UNSPECIFIED 10/30/2008 МАРИНА ROBERT, ISAAC E V25.9 CONTRACEPTIVE MANAGEMENT, UNSPECIFIED 07/02/2009 MELISA ANGELA MD 780.39 convulsions [as sx] 07/02/2009 MELISA ANGELA MD 780.39 convulsions [as sx] 07/02/2009 MELISA ANGELA MD 780.39 convulsions [as sx] 07/02/2009 780.39 convulsions [as sx] 07/02/2009 780.39 convulsions [as sx] 07/02/2009 780.39 convulsions [as sx] 07/02/2009 MAYNOR PITT DO K 780.39 convulsions [as sx] 07/02/2009 PITT DOMAYNOR K 780.39 convulsions [as sx] 07/02/2009 MAYNOR PITT DO K 780.39 convulsions [as sx] 07/02/2009 SANDY DEJESUS APRN 780.39 convulsions [as sx] 07/02/2009 PITT MAYNOR ANGULO K 780.39 convulsions [as sx] 07/02/2009 SANDY DEJESUS APRN 780.39 convulsions [as sx] 07/02/2009 PITT MAYNOR ANGULO K 780.39 convulsions [as sx] 07/02/2009 MAYNOR PITT DO K 780.39 convulsions [as sx] 07/02/2009 LATOYA GALE APRN 780.39 convulsions [as sx] 07/02/2009 PITT DOANASTACIOA K 780.39 convulsions [as sx] 07/02/2009 PITT DOANASTACIOA K 780.39 convulsions [as sx] 07/02/2009 PITT DOMAYNOR K 780.39 convulsions [as sx] 07/02/2009 LATOYA GALE APRN 780.39 convulsions [as sx] 07/02/2009 PITT MAYNOR ANGULO K 780.39 convulsions [as sx] 07/02/2009 SANDY DEJESUS APRN 780.39 convulsions [as sx] 07/02/2009 TEJAL FISH 780.39 convulsions [as sx] 07/02/2009 PITT DOMAYNOR K 780.39 convulsions [as sx] 07/02/2009 МАРИНА ROBERT, IASAC Reyes 780.39 convulsions [as sx] 07/02/2009 ISAAC PARISH RN 780.39 convulsions [as sx] 07/02/2009 ISAAC PARISH RN 780.39 convulsions [as sx] 07/02/2009 ISAAC PARISH RN 780.39 convulsions [as sx] 07/02/2009 MAYNOR PITT DO 780.39 convulsions [as sx] 07/02/2009 MAYNOR PITT DO 780.39 convulsions [as sx] 07/02/2009 MAYNOR PITT DO 780.39 convulsions [as sx] 07/02/2009 ISAAC PARISH RN 780.39 convulsions [as sx] 07/02/2009 ISAAC PARISH RN 780.39 convulsions [as sx] 07/02/2009 ISAAC PARISH RN 780.39 convulsions [as sx] 02/17/2010 MELISA ANGELA MD 651.00 HIGH RISK MULTIPLE GESTATION 02/17/2010 MELISA ANGELA MD 651.00 HIGH RISK MULTIPLE GESTATION 02/17/2010 MELISA ANGELA MD 651.00 HIGH RISK MULTIPLE GESTATION 02/17/2010 651.00 HIGH RISK MULTIPLE GESTATION 02/17/2010 651.00 HIGH RISK MULTIPLE GESTATION 02/17/2010 651.00 HIGH RISK MULTIPLE GESTATION 02/17/2010 MAYNOR PITT DO 651.00 HIGH RISK MULTIPLE GESTATION 02/17/2010 MAYNOR PITT DO 651.00 HIGH RISK MULTIPLE GESTATION 02/17/2010 MAYNOR PITT DO K 651.00 HIGH RISK MULTIPLE GESTATION 02/17/2010 SANDY DEJESUS APRN 651.00 HIGH RISK MULTIPLE GESTATION 02/17/2010 ANASTACIO PITT DOA K 651.00 HIGH RISK MULTIPLE GESTATION 02/17/2010 SANDY DEJESUS APRN 651.00 HIGH RISK MULTIPLE GESTATION 02/17/2010 ANASTACIO PITT DOA K 651.00 HIGH RISK MULTIPLE GESTATION 02/17/2010 ANASTACIO PITT DOA K 651.00 HIGH RISK MULTIPLE GESTATION 02/17/2010 LATOYA GALE APRN 651.00 HIGH RISK MULTIPLE GESTATION 02/17/2010 ANASTACIO PITT DOA K 651.00 HIGH RISK MULTIPLE GESTATION 02/17/2010 PITT DO, MAYNOR K 651.00 HIGH RISK MULTIPLE GESTATION 02/17/2010 PITT DO, MAYNOR K 651.00 HIGH RISK MULTIPLE GESTATION 02/17/2010 LATOYA GALE APRN E 651.00 HIGH RISK MULTIPLE GESTATION 02/17/2010 PITT DO, MAYNOR K 651.00 HIGH RISK MULTIPLE GESTATION 02/17/2010 OLEG BINGHAM, SANDY Arambula 651.00 HIGH RISK MULTIPLE GESTATION 02/17/2010 GHASSAN MEDELLINMF, TEJAL [place] 651.00 HIGH RISK MULTIPLE GESTATION 02/17/2010 PITT , MAYNOR K 651.00 HIGH RISK MULTIPLE GESTATION 02/17/2010 МАРИНА ROBERT, ISAAC Reyes 651.00 HIGH RISK MULTIPLE GESTATION 02/17/2010 ISAAC PARISH RN 651.00 HIGH RISK MULTIPLE GESTATION 02/17/2010 ISAAC PARISH RN 651.00 HIGH RISK MULTIPLE GESTATION 02/17/2010 ISAAC PARISH RN 651.00 HIGH RISK MULTIPLE GESTATION 02/17/2010 PITT DO, MAYNOR K 651.00 HIGH RISK MULTIPLE GESTATION 02/17/2010 PITT , MAYNOR K 651.00 HIGH RISK MULTIPLE GESTATION 02/17/2010 PITT , MAYNOR K 651.00 HIGH RISK MULTIPLE GESTATION 02/17/2010 ISAAC PARISH RN E 651.00 HIGH RISK MULTIPLE GESTATION 02/17/2010 ISAAC PARISH RN E 651.00 HIGH RISK MULTIPLE GESTATION 02/17/2010 ISAAC PARISH RN 651.00 HIGH RISK MULTIPLE GESTATION 02/25/2010 MELISA ANGELA MD 345.10 SEIZURE DISORDER GENERALIZED CONVULSIVE GRAND MAL 02/25/2010 MELISA ANGELA MD 794.5 NONSPECIFIC ABNORMAL RESULTS OF FUNCTION STUDIES, THYROID 02/25/2010 MELISA ANGELA MD V23.3 HIGH-RISK WITH GRAND MULTIPARITY 02/25/2010 MELISA ANGELA MD V23.9 SUPERVISION OF UNSPECIFIED HIGH-RISK 02/25/2010 MELISA ANGELA MD 345.10 SEIZURE DISORDER GENERALIZED CONVULSIVE GRAND MAL 02/25/2010 MELISA ANGELA MD 794.5 NONSPECIFIC ABNORMAL RESULTS OF FUNCTION STUDIES, THYROID 02/25/2010 MELISA ANGELA MD V23.3 HIGH-RISK WITH GRAND MULTIPARITY 02/25/2010 MELISA ANGELA MD V23.9 SUPERVISION OF UNSPECIFIED HIGH-RISK 02/25/2010 COREEN MCCARTY, MELISA 345.10 SEIZURE DISORDER GENERALIZED CONVULSIVE GRAND MAL 02/25/2010 MELISA ANGELA MD 794.5 NONSPECIFIC ABNORMAL RESULTS OF FUNCTION STUDIES, THYROID 02/25/2010 MELISA ANGELA MD V23.3 HIGH-RISK WITH GRAND MULTIPARITY 02/25/2010 MELISA ANGELA MD V23.9 SUPERVISION OF UNSPECIFIED HIGH-RISK 02/25/2010 345.10 SEIZURE DISORDER GENERALIZED CONVULSIVE GRAND MAL 02/25/2010 794.5 NONSPECIFIC ABNORMAL RESULTS OF FUNCTION STUDIES, THYROID 02/25/2010 V23.3 HIGH-RISK WITH GRAND MULTIPARITY 02/25/2010 V23.9 SUPERVISION OF UNSPECIFIED HIGH-RISK 02/25/2010 345.10 SEIZURE DISORDER GENERALIZED CONVULSIVE GRAND MAL 02/25/2010 794.5 NONSPECIFIC ABNORMAL RESULTS OF FUNCTION STUDIES, THYROID 02/25/2010 V23.3 HIGH-RISK WITH GRAND MULTIPARITY 02/25/2010 V23.9 SUPERVISION OF UNSPECIFIED HIGH-RISK 02/25/2010 345.10 SEIZURE DISORDER GENERALIZED CONVULSIVE GRAND MAL 02/25/2010 794.5 NONSPECIFIC ABNORMAL RESULTS OF FUNCTION STUDIES, THYROID 02/25/2010 V23.3 HIGH-RISK WITH GRAND MULTIPARITY 02/25/2010 V23.9 SUPERVISION OF UNSPECIFIED HIGH-RISK 02/25/2010 ANASTACIO PITT DOA K 345.10 SEIZURE DISORDER GENERALIZED CONVULSIVE GRAND MAL 02/25/2010 ANASTACIO PITT DOA K 794.5 NONSPECIFIC ABNORMAL RESULTS OF FUNCTION STUDIES, THYROID 02/25/2010 SWEETIE ANGULO MAYNOR K V23.3 HIGH-RISK WITH GRAND MULTIPARITY 02/25/2010 SWEETIE ANGULO MAYNOR K V23.9 SUPERVISION OF UNSPECIFIED HIGH-RISK 02/25/2010 SWEETIE ANGULO MAYNOR K 345.10 SEIZURE DISORDER GENERALIZED CONVULSIVE GRAND MAL 02/25/2010 SWEETIE ANGULO MAYNOR K 794.5 NONSPECIFIC ABNORMAL RESULTS OF FUNCTION STUDIES, THYROID 02/25/2010 SWEETIE ANGULO MAYNOR K V23.3 HIGH-RISK WITH GRAND MULTIPARITY 02/25/2010 SWEETIE ANGULO MAYNOR K V23.9 SUPERVISION OF UNSPECIFIED HIGH-RISK 02/25/2010 ANASTACIO PITT DOA K 345.10 SEIZURE DISORDER GENERALIZED CONVULSIVE GRAND MAL 02/25/2010 MAYNOR PITT DO 794.5 NONSPECIFIC ABNORMAL RESULTS OF FUNCTION STUDIES, THYROID 02/25/2010 ANASTACIO PITT DOA K V23.3 HIGH-RISK WITH GRAND MULTIPARITY 02/25/2010 ANASTACIO PITT DOA K V23.9 SUPERVISION OF UNSPECIFIED HIGH-RISK 02/25/2010 SANDY DEJESUS APRN 345.10 SEIZURE DISORDER GENERALIZED CONVULSIVE GRAND MAL 02/25/2010 DEJESUS JOB ANALYSIS MANAGERSANDY Wheeler R 794.5 NONSPECIFIC ABNORMAL RESULTS OF FUNCTION STUDIES, THYROID 02/25/2010 DEJESUS JOB ANALYSIS MANAGERSANDY Wheeler R V23.3 HIGH-RISK WITH GRAND MULTIPARITY 02/25/2010 DEJESUS JOB ANALYSIS MANAGERSANDY Wheeler R V23.9 SUPERVISION OF UNSPECIFIED HIGH-RISK 02/25/2010 MAYNOR PITT DO K 345.10 SEIZURE DISORDER GENERALIZED CONVULSIVE GRAND MAL 02/25/2010 MAYNOR PITT DO K 794.5 NONSPECIFIC ABNORMAL RESULTS OF FUNCTION STUDIES, THYROID 02/25/2010 MAYNOR PITT DO V23.3 HIGH-RISK WITH GRAND MULTIPARITY 02/25/2010 ANASTACIO PITT DOA Prosper V23.9 SUPERVISION OF UNSPECIFIED HIGH-RISK 02/25/2010 DEJESUS SANDY BINGHAM R 345.10 SEIZURE DISORDER GENERALIZED CONVULSIVE GRAND MAL 02/25/2010 DEJESUS SANDY BINGHAM R 794.5 NONSPECIFIC ABNORMAL RESULTS OF FUNCTION STUDIES, THYROID 02/25/2010 DEJESUS SANDY BINGHAM R V23.3 HIGH-RISK WITH GRAND MULTIPARITY 02/25/2010 DEJESUS JOB ANALYSIS MANAGERSANDY Wheeler R V23.9 SUPERVISION OF UNSPECIFIED HIGH-RISK 02/25/2010 MAYNOR PITT DO K 345.10 SEIZURE DISORDER GENERALIZED CONVULSIVE GRAND MAL 02/25/2010 ANASTACIO PITT DOA K 794.5 NONSPECIFIC ABNORMAL RESULTS OF FUNCTION STUDIES, THYROID 02/25/2010 SWEETIE ANGULO MAYNOR K V23.3 HIGH-RISK WITH GRAND MULTIPARITY 02/25/2010 SWEETIE ANGULO MAYNOR K V23.9 SUPERVISION OF UNSPECIFIED HIGH-RISK 02/25/2010 SWEETIE ANGULO MAYNOR K 345.10 SEIZURE DISORDER GENERALIZED CONVULSIVE GRAND MAL 02/25/2010 SWEETIE ANGULO MAYNOR K 794.5 NONSPECIFIC ABNORMAL RESULTS OF FUNCTION STUDIES, THYROID 02/25/2010 ANASTACIO PITT DOA K V23.3 HIGH-RISK WITH GRAND MULTIPARITY 02/25/2010 PITT DO, MAYNOR K V23.9 SUPERVISION OF UNSPECIFIED HIGH-RISK 02/25/2010 LATOYA GALE APRN E 345.10 SEIZURE DISORDER GENERALIZED CONVULSIVE GRAND MAL 02/25/2010 LATOYA GALE APRN E 794.5 NONSPECIFIC ABNORMAL RESULTS OF FUNCTION STUDIES, THYROID 02/25/2010 GIDEON GALE APRNE E V23.3 HIGH-RISK WITH GRAND MULTIPARITY 02/25/2010 CHUCKYGIDEON JAVIER APRNE E V23.9 SUPERVISION OF UNSPECIFIED HIGH-RISK 02/25/2010 PITT DO, MAYNOR K 345.10 SEIZURE DISORDER GENERALIZED CONVULSIVE GRAND MAL 02/25/2010 PITT DO, MAYNOR K 794.5 NONSPECIFIC ABNORMAL RESULTS OF FUNCTION STUDIES, THYROID 02/25/2010 PITT DO MAYNOR K V23.3 HIGH-RISK WITH GRAND MULTIPARITY 02/25/2010 PITT DO, MAYNOR K V23.9 SUPERVISION OF UNSPECIFIED HIGH-RISK 02/25/2010 PITT DO MAYNOR K 345.10 SEIZURE DISORDER GENERALIZED CONVULSIVE GRAND MAL 02/25/2010 PITT DO, MAYNOR K 794.5 NONSPECIFIC ABNORMAL RESULTS OF FUNCTION STUDIES, THYROID 02/25/2010 PITT DO, MAYNOR K V23.3 HIGH-RISK WITH GRAND MULTIPARITY 02/25/2010 PITT DO, MAYNOR K V23.9 SUPERVISION OF UNSPECIFIED HIGH-RISK 02/25/2010 PITT DO, MAYNOR K 345.10 SEIZURE DISORDER GENERALIZED CONVULSIVE GRAND MAL 02/25/2010 PITT DO, MAYNOR K 794.5 NONSPECIFIC ABNORMAL RESULTS OF FUNCTION STUDIES, THYROID 02/25/2010 PITT DO MAYNOR K V23.3 HIGH-RISK WITH GRAND MULTIPARITY 02/25/2010 PITT DO, MAYNOR K V23.9 SUPERVISION OF UNSPECIFIED HIGH-RISK 02/25/2010 GIDEON GALE APRNE E 345.10 SEIZURE DISORDER GENERALIZED CONVULSIVE GRAND MAL 02/25/2010 GIDEON GALE APRNE E 794.5 NONSPECIFIC ABNORMAL RESULTS OF FUNCTION STUDIES, THYROID 02/25/2010 ANASTACIO GALE APRNSIE E V23.3 HIGH-RISK WITH GRAND MULTIPARITY 02/25/2010 LATOYA GALE APRN E V23.9 SUPERVISION OF UNSPECIFIED HIGH-RISK 02/25/2010 MAYNOR PITT DO 345.10 SEIZURE DISORDER GENERALIZED CONVULSIVE GRAND MAL 02/25/2010 MAYNOR PITT DO 794.5 NONSPECIFIC ABNORMAL RESULTS OF FUNCTION STUDIES, THYROID 02/25/2010 MAYNOR PITT DO V23.3 HIGH-RISK WITH GRAND MULTIPARITY 02/25/2010 MAYNOR PITT DO V23.9 SUPERVISION OF UNSPECIFIED HIGH-RISK 02/25/2010 SANDY DEJESUS APRN 345.10 SEIZURE DISORDER GENERALIZED CONVULSIVE GRAND MAL 02/25/2010 SANDY DEJESUS APRN 794.5 NONSPECIFIC ABNORMAL RESULTS OF FUNCTION STUDIES, THYROID 02/25/2010 SANDY DEJESUS APRN V23.3 HIGH-RISK WITH GRAND MULTIPARITY 02/25/2010 SANDY DEJESUS APRN V23.9 SUPERVISION OF UNSPECIFIED HIGH-RISK 02/25/2010 GHASSAN CUNNINGHAM, TEJAL [place]leton 345.10 SEIZURE DISORDER GENERALIZED CONVULSIVE GRAND MAL 02/25/2010 GHASSAN KINGSLEYF, TEJAL [place] 794.5 NONSPECIFIC ABNORMAL RESULTS OF FUNCTION STUDIES, THYROID 02/25/2010 GHASSAN KINGSLEYF, TEJAL [place] V23.3 HIGH-RISK WITH GRAND MULTIPARITY 02/25/2010 GHASSAN KINGSLEYF, TEJAL [place] V23.9 SUPERVISION OF UNSPECIFIED HIGH-RISK 02/25/2010 MAYNOR PITT DO 345.10 SEIZURE DISORDER GENERALIZED CONVULSIVE GRAND MAL 02/25/2010 MAYNOR PITT DO 794.5 NONSPECIFIC ABNORMAL RESULTS OF FUNCTION STUDIES, THYROID 02/25/2010 MAYNOR PITT DO V23.3 HIGH-RISK WITH GRAND MULTIPARITY 02/25/2010 MAYNOR PITT DO V23.9 SUPERVISION OF UNSPECIFIED HIGH-RISK 02/25/2010 ISAAC PARISH RN 345.10 SEIZURE DISORDER GENERALIZED CONVULSIVE GRAND MAL 02/25/2010 ISAAC PARISH RN 794.5 NONSPECIFIC ABNORMAL RESULTS OF FUNCTION STUDIES, THYROID 02/25/2010 ISAAC PARISH RN V23.3 HIGH-RISK WITH GRAND MULTIPARITY 02/25/2010 ISAAC PARISH RN V23.9 SUPERVISION OF UNSPECIFIED HIGH-RISK 02/25/2010 ISAAC PARISH RN 345.10 SEIZURE DISORDER GENERALIZED CONVULSIVE GRAND MAL 02/25/2010 ISAAC PARISH RN E 794.5 NONSPECIFIC ABNORMAL RESULTS OF FUNCTION STUDIES, THYROID 02/25/2010 ISAAC PARISH RN V23.3 HIGH-RISK WITH GRAND MULTIPARITY 02/25/2010 ISAAC PARISH RN V23.9 SUPERVISION OF UNSPECIFIED HIGH-RISK 02/25/2010 ISAAC PARISH RN 345.10 SEIZURE DISORDER GENERALIZED CONVULSIVE GRAND MAL 02/25/2010 ISAAC PARISH RN 794.5 NONSPECIFIC ABNORMAL RESULTS OF FUNCTION STUDIES, THYROID 02/25/2010 ISAAC PARISH RN V23.3 HIGH-RISK WITH GRAND MULTIPARITY 02/25/2010 ISAAC PARISH RN V23.9 SUPERVISION OF UNSPECIFIED HIGH-RISK 02/25/2010 ISAAC PARISH RN 345.10 SEIZURE DISORDER GENERALIZED CONVULSIVE GRAND MAL 02/25/2010 ISAAC PARISH RN 794.5 NONSPECIFIC ABNORMAL RESULTS OF FUNCTION STUDIES, THYROID 02/25/2010 ISAAC PARISH RN V23.3 HIGH-RISK WITH GRAND MULTIPARITY 02/25/2010 ISAAC PARISH RN E V23.9 SUPERVISION OF UNSPECIFIED HIGH-RISK 02/25/2010 MAYNOR PITT DO 345.10 SEIZURE DISORDER GENERALIZED CONVULSIVE GRAND MAL 02/25/2010 MAYNOR PITT DO K 794.5 NONSPECIFIC ABNORMAL RESULTS OF FUNCTION STUDIES, THYROID 02/25/2010 SWEETIE ANGULO MAYNOR K V23.3 HIGH-RISK WITH GRAND MULTIPARITY 02/25/2010 ANASTACIO PITT DOA K V23.9 SUPERVISION OF UNSPECIFIED HIGH-RISK 02/25/2010 MAYNOR PITT DO K 345.10 SEIZURE DISORDER GENERALIZED CONVULSIVE GRAND MAL 02/25/2010 ANASTACIO PITT DOA K 794.5 NONSPECIFIC ABNORMAL RESULTS OF FUNCTION STUDIES, THYROID 02/25/2010 SWEETIE ANGULO MAYNOR K V23.3 HIGH-RISK WITH GRAND MULTIPARITY 02/25/2010 SWEETIE ANGULO MAYNOR K V23.9 SUPERVISION OF UNSPECIFIED HIGH-RISK 02/25/2010 ANASTACIO PITT DOA K 345.10 SEIZURE DISORDER GENERALIZED CONVULSIVE GRAND MAL 02/25/2010 ANASTACIO PITT DOA K 794.5 NONSPECIFIC ABNORMAL RESULTS OF FUNCTION STUDIES, THYROID 02/25/2010 SWEETIE ANGULO MAYNOR K V23.3 HIGH-RISK WITH GRAND MULTIPARITY 02/25/2010 MAYNOR PITT DO V23.9 SUPERVISION OF UNSPECIFIED HIGH-RISK 02/25/2010 ISAAC PARISH RN 345.10 SEIZURE DISORDER GENERALIZED CONVULSIVE GRAND MAL 02/25/2010 ISAAC PARISH RN 794.5 NONSPECIFIC ABNORMAL RESULTS OF FUNCTION STUDIES, THYROID 02/25/2010 ISAAC PARISH RN V23.3 HIGH-RISK WITH GRAND MULTIPARITY 02/25/2010 ISAAC PARISH RN V23.9 SUPERVISION OF UNSPECIFIED HIGH-RISK 02/25/2010 ISAAC PARISH RN 345.10 SEIZURE DISORDER GENERALIZED CONVULSIVE GRAND MAL 02/25/2010 ISAAC PARISH RN 794.5 NONSPECIFIC ABNORMAL RESULTS OF FUNCTION STUDIES, THYROID 02/25/2010 ISAAC PARISH RN V23.3 HIGH-RISK WITH GRAND MULTIPARITY 02/25/2010 ISAAC PARISH RN V23.9 SUPERVISION OF UNSPECIFIED HIGH-RISK 02/25/2010 ISAAC PARISH RN 345.10 SEIZURE DISORDER GENERALIZED CONVULSIVE GRAND MAL 02/25/2010 ISAAC PARISH RN 794.5 NONSPECIFIC ABNORMAL RESULTS OF FUNCTION STUDIES, THYROID 02/25/2010 ISAAC PARISH RN V23.3 HIGH-RISK WITH GRAND MULTIPARITY 02/25/2010 ISAAC PARISH RN V23.9 SUPERVISION OF UNSPECIFIED HIGH-RISK 09/03/2010 MELISA ANGELA MD 646.60 COMPL OF - UTI 09/03/2010 MELISA ANGELA MD 646.60 COMPL OF - UTI 09/03/2010 MELISA ANGELA MD 646.60 COMPL OF - UTI 09/03/2010 646.60 COMPL OF - UTI 09/03/2010 646.60 COMPL OF - UTI 09/03/2010 646.60 COMPL OF - UTI 09/03/2010 MAYNOR PITT DO 646.60 COMPL OF - UTI 09/03/2010 MAYNOR PITT DO 646.60 COMPL OF - UTI 09/03/2010 MAYNOR PITT DO 646.60 COMPL OF - UTI 09/03/2010 SANDY DEJESUS APRN 646.60 COMPL OF - UTI 09/03/2010 MAYNOR PITT DO 646.60 COMPL OF - UTI 09/03/2010 SANDY DEJESUS APRN 646.60 COMPL OF - UTI 09/03/2010 PITT DOMAYNOR K 646.60 COMPL OF - UTI 09/03/2010 PITT DO, MAYNOR K 646.60 COMPL OF - UTI 09/03/2010 LATOYA GALE APRN E 646.60 COMPL OF - UTI 09/03/2010 PITT DOANASTACIOA K 646.60 COMPL OF - UTI 09/03/2010 PITT DOANASTACIOA K 646.60 COMPL OF - UTI 09/03/2010 PITT DOANASTACIOA K 646.60 COMPL OF - UTI 09/03/2010 LATOYA GALE APRN E 646.60 COMPL OF - UTI 09/03/2010 PITT DO, MAYNOR K 646.60 COMPL OF - UTI 09/03/2010 SANDY DEJESUS APRN 646.60 COMPL OF - UTI 09/03/2010 [facility] - UTI 09/03/2010 PITT MAYNOR ANGULO K 646.60 COMPL OF - UTI 09/03/2010 МАРИНА ROBERT, ISAAC E 646.60 COMPL OF - UTI 09/03/2010 МАРИНА ROBERT, ISAAC E 646.60 COMPL OF - UTI 09/03/2010 МАРИНА ROBERT, ISAAC E 646.60 COMPL OF - UTI 09/03/2010 МАРИНА ROBERT, ISAAC E 646.60 COMPL OF - UTI 09/03/2010 MAYNOR PITT DO K 646.60 COMPL OF - UTI 09/03/2010 ANASTACIO PITT DOA K 646.60 COMPL OF - UTI 09/03/2010 PITT ANASTACIO ANGULOA K 646.60 COMPL OF - UTI 09/03/2010 МАРИНА ROBERT, ISAAC E 646.60 COMPL OF - UTI 09/03/2010 МАРИНА ROBERT, ISAAC E 646.60 COMPL OF - UTI 09/03/2010 МАРИНА ROBERT, ISAAC E 646.60 COMPL OF - UTI 01/12/2011 MELISA ANGELA MD 300.00 ANXIETY STATE UNSPECIFIED 01/12/2011 MELISA ANGELA MD 311 DEPRESSIVE DISORDER NOT ELSEWHERE CLASSIFIED 01/12/2011 MELISA ANGELA MD 300.00 ANXIETY STATE UNSPECIFIED 01/12/2011 MELISA ANGELA MD 311 DEPRESSIVE DISORDER NOT ELSEWHERE CLASSIFIED 01/12/2011 MELISA ANGELA MD 300.00 ANXIETY STATE UNSPECIFIED 01/12/2011 MELISA ANGELA MD 311 DEPRESSIVE DISORDER NOT ELSEWHERE CLASSIFIED 01/12/2011 300.00 ANXIETY STATE UNSPECIFIED 01/12/2011 311 DEPRESSIVE DISORDER NOT ELSEWHERE CLASSIFIED 01/12/2011 300.00 ANXIETY STATE UNSPECIFIED 01/12/2011 311 DEPRESSIVE DISORDER NOT ELSEWHERE CLASSIFIED 01/12/2011 300.00 ANXIETY STATE UNSPECIFIED 01/12/2011 311 DEPRESSIVE DISORDER NOT ELSEWHERE CLASSIFIED 01/12/2011 PITT DO, MAYNOR K 300.00 ANXIETY STATE UNSPECIFIED 01/12/2011 PITT DO, MAYNOR K 311 DEPRESSIVE DISORDER NOT ELSEWHERE CLASSIFIED 01/12/2011 PITT DO, MAYNOR K 300.00 ANXIETY STATE UNSPECIFIED 01/12/2011 PITT DO, MAYNOR K 311 DEPRESSIVE DISORDER NOT ELSEWHERE CLASSIFIED 01/12/2011 PITT DO, MAYNOR K 300.00 ANXIETY STATE UNSPECIFIED 01/12/2011 PITT DO, MAYNOR K 311 DEPRESSIVE DISORDER NOT ELSEWHERE CLASSIFIED 01/12/2011 DEJESUS JOB ANALYSIS MANAGER, SANDY R 300.00 ANXIETY STATE UNSPECIFIED 01/12/2011 DEJESUS JOB ANALYSIS MANAGER SANDY R 311 DEPRESSIVE DISORDER NOT ELSEWHERE CLASSIFIED 01/12/2011 PITT DO, MAYNOR K 300.00 ANXIETY STATE UNSPECIFIED 01/12/2011 PITT DO, MAYNOR K 311 DEPRESSIVE DISORDER NOT ELSEWHERE CLASSIFIED 01/12/2011 DEJESUS JOB ANALYSIS MANAGER, SANDY R 300.00 ANXIETY STATE UNSPECIFIED 01/12/2011 DEJESUS JOB ANALYSIS MANAGER, SANDY R 311 DEPRESSIVE DISORDER NOT ELSEWHERE CLASSIFIED 01/12/2011 PITT DO, MAYNOR K 300.00 ANXIETY STATE UNSPECIFIED 01/12/2011 PITT DO, MAYNOR K 311 DEPRESSIVE DISORDER NOT ELSEWHERE CLASSIFIED 01/12/2011 PITT DO, MAYNOR K 300.00 ANXIETY STATE UNSPECIFIED 01/12/2011 PITT DO, MAYNOR K 311 DEPRESSIVE DISORDER NOT ELSEWHERE CLASSIFIED 01/12/2011 HELLWIG JOB ANALYSIS MANAGER LATOYA E 300.00 ANXIETY STATE UNSPECIFIED 01/12/2011 HELLWIG JOB ANALYSIS MANAGER LATOYA E 311 DEPRESSIVE DISORDER NOT ELSEWHERE CLASSIFIED 01/12/2011 PITT DO, MAYNOR K 300.00 ANXIETY STATE UNSPECIFIED 01/12/2011 PITT DO, MAYNOR K 311 DEPRESSIVE DISORDER NOT ELSEWHERE CLASSIFIED 01/12/2011 PITT DO, MAYNOR K 300.00 ANXIETY STATE UNSPECIFIED 01/12/2011 PITT DO, MAYNOR K 311 DEPRESSIVE DISORDER NOT ELSEWHERE CLASSIFIED 01/12/2011 PITT DO, MAYNOR K 300.00 ANXIETY STATE UNSPECIFIED 01/12/2011 PITT DO, MAYNOR K 311 DEPRESSIVE DISORDER NOT ELSEWHERE CLASSIFIED 01/12/2011 LATOYA GALE APRN E 300.00 ANXIETY STATE UNSPECIFIED 01/12/2011 GIDEON GALE APRNE E 311 DEPRESSIVE DISORDER NOT ELSEWHERE CLASSIFIED 01/12/2011 PITT DO, MAYNOR K 300.00 ANXIETY STATE UNSPECIFIED 01/12/2011 PITT DO, MAYNOR K 311 DEPRESSIVE DISORDER NOT ELSEWHERE CLASSIFIED 01/12/2011 DEJESUS JOB ANALYSIS MANAGERSANDY R 300.00 ANXIETY STATE UNSPECIFIED 01/12/2011 DEJESUS JOB ANALYSIS MANAGERSANDY R 311 DEPRESSIVE DISORDER NOT ELSEWHERE CLASSIFIED 01/12/2011 GHASSAN KINGSLEYF, TEJAL W 300.00 ANXIETY STATE UNSPECIFIED 01/12/2011 GHASSAN MEDELLINMF, TEJAL W 311 DEPRESSIVE DISORDER NOT ELSEWHERE CLASSIFIED 01/12/2011 PITT DO, MAYNOR K 300.00 ANXIETY STATE UNSPECIFIED 01/12/2011 PITT DO, MAYNOR K 311 DEPRESSIVE DISORDER NOT ELSEWHERE CLASSIFIED 01/12/2011 ISAAC PARISH RN 300.00 ANXIETY STATE UNSPECIFIED 01/12/2011 IASAC PARISH RN 311 DEPRESSIVE DISORDER NOT ELSEWHERE CLASSIFIED 01/12/2011 ISAAC PARISH RN 300.00 ANXIETY STATE UNSPECIFIED 01/12/2011 ISAAC PARISH RN E 311 DEPRESSIVE DISORDER NOT ELSEWHERE CLASSIFIED 01/12/2011 ISAAC PARISH RN E 300.00 ANXIETY STATE UNSPECIFIED 01/12/2011 ISAAC PARISH RN E 311 DEPRESSIVE DISORDER NOT ELSEWHERE CLASSIFIED 01/12/2011 ISAAC PARISH RN E 300.00 ANXIETY STATE UNSPECIFIED 01/12/2011 ISAAC PARISH RN E 311 DEPRESSIVE DISORDER NOT ELSEWHERE CLASSIFIED 01/12/2011 PITT DO, MAYNOR K 300.00 ANXIETY STATE UNSPECIFIED 01/12/2011 PITT DO, MAYNOR K 311 DEPRESSIVE DISORDER NOT ELSEWHERE CLASSIFIED 01/12/2011 PITT DO, MAYNOR K 300.00 ANXIETY STATE UNSPECIFIED 01/12/2011 PITT DO, MAYNOR K 311 DEPRESSIVE DISORDER NOT ELSEWHERE CLASSIFIED 01/12/2011 PITT DO, MAYNOR K 300.00 ANXIETY STATE UNSPECIFIED 01/12/2011 PITT DO, MAYNOR K 311 DEPRESSIVE DISORDER NOT ELSEWHERE CLASSIFIED 01/12/2011 ISAAC PARISH RN 300.00 ANXIETY STATE UNSPECIFIED 01/12/2011 ISAAC PARISH RN E 311 DEPRESSIVE DISORDER NOT ELSEWHERE CLASSIFIED 01/12/2011 ISAAC PARISH RN 300.00 ANXIETY STATE UNSPECIFIED 01/12/2011 ISAAC PARISH RN E 311 DEPRESSIVE DISORDER NOT ELSEWHERE CLASSIFIED 01/12/2011 ISAAC PARISH RN 300.00 ANXIETY STATE UNSPECIFIED 01/12/2011 ISAAC PARISH RN 311 DEPRESSIVE DISORDER NOT ELSEWHERE CLASSIFIED 03/19/2011 MELISA ANGELA MD 564.00 CONSTIPATION 03/19/2011 MELISA ANGELA MD 599.0 URINARY TRACT INFECTION 03/19/2011 MELISA ANGELA MD 737.30 SCOLIOSIS (AND KYPHOSCOLIOSIS) IDIOPATHIC 03/19/2011 MELISA ANGELA MD 780.93 MEMORY LOSS 03/19/2011 MELISA ANGELA MD 788.41 URINARY FREQUENCY 03/19/2011 MELISA ANGELA MD 564.00 CONSTIPATION 03/19/2011 MELISA ANGELA MD 599.0 URINARY TRACT INFECTION 03/19/2011 MELISA ANGELA MD 737.30 SCOLIOSIS (AND KYPHOSCOLIOSIS) IDIOPATHIC 03/19/2011 MELISA ANGELA MD 780.93 MEMORY LOSS 03/19/2011 MELISA ANGELA MD 788.41 URINARY FREQUENCY 03/19/2011 MLEISA ANGELA MD 564.00 CONSTIPATION 03/19/2011 MELISA ANGELA MD 599.0 URINARY TRACT INFECTION 03/19/2011 MELISA ANGELA MD 737.30 SCOLIOSIS (AND KYPHOSCOLIOSIS) IDIOPATHIC 03/19/2011 MELISA ANGELA MD 780.93 MEMORY LOSS 03/19/2011 MELISA ANGELA MD 788.41 URINARY FREQUENCY 03/19/2011 564.00 CONSTIPATION 03/19/2011 599.0 URINARY TRACT INFECTION 03/19/2011 737.30 SCOLIOSIS ( AND KYPHOSCOLIOSIS) IDIOPATHIC 03/19/2011 780.93 MEMORY LOSS 03/19/2011 788.41 URINARY FREQUENCY 03/19/2011 564.00 CONSTIPATION 03/19/2011 599.0 URINARY TRACT INFECTION 03/19/2011 737.30 SCOLIOSIS ( AND KYPHOSCOLIOSIS) IDIOPATHIC 03/19/2011 780.93 MEMORY LOSS 03/19/2011 788.41 URINARY FREQUENCY 03/19/2011 564.00 CONSTIPATION 03/19/2011 599.0 URINARY TRACT INFECTION 03/19/2011 737.30 SCOLIOSIS ( AND KYPHOSCOLIOSIS) IDIOPATHIC 03/19/2011 780.93 MEMORY LOSS 03/19/2011 788.41 URINARY FREQUENCY 03/19/2011 PITT DO, MAYNOR K 564.00 CONSTIPATION 03/19/2011 PITT DO, MAYNOR K 599.0 URINARY TRACT INFECTION 03/19/2011 PITT DO, MAYNOR K 737.30 SCOLIOSIS (AND KYPHOSCOLIOSIS) IDIOPATHIC 03/19/2011 PITT DO, MAYNOR K 780.93 MEMORY LOSS 03/19/2011 PITT DO, MAYNOR K 788.41 URINARY FREQUENCY 03/19/2011 PITT DO, MAYNOR K 564.00 CONSTIPATION 03/19/2011 PITT DO, MAYNOR K 599.0 URINARY TRACT INFECTION 03/19/2011 PITT DO, MAYNOR K 737.30 SCOLIOSIS (AND KYPHOSCOLIOSIS) IDIOPATHIC 03/19/2011 PITT DO, MAYNOR K 780.93 MEMORY LOSS 03/19/2011 PITT DO, MAYNOR K 788.41 URINARY FREQUENCY 03/19/2011 PITT DO, MAYNOR K 564.00 CONSTIPATION 03/19/2011 PITT DO, MAYNOR K 599.0 URINARY TRACT INFECTION 03/19/2011 PITT DO, MAYNOR K 737.30 SCOLIOSIS (AND KYPHOSCOLIOSIS) IDIOPATHIC 03/19/2011 PITT DO, MAYNOR K 780.93 MEMORY LOSS 03/19/2011 PITT DO, MAYNOR K 788.41 URINARY FREQUENCY 03/19/2011 SANDY DEJESUS APRN R 564.00 CONSTIPATION 03/19/2011 SANDY DEJESUS APRN R 599.0 URINARY TRACT INFECTION 03/19/2011 SANDY DEJESUS APRN R 737.30 SCOLIOSIS (AND KYPHOSCOLIOSIS) IDIOPATHIC 03/19/2011 SANDY DEJESUS APRN R 780.93 MEMORY LOSS 03/19/2011 SANDY DEJESUS APRN R 788.41 URINARY FREQUENCY 03/19/2011 PITT DO, MAYNOR K 564.00 CONSTIPATION 03/19/2011 PITT DO, MAYNOR K 599.0 URINARY TRACT INFECTION 03/19/2011 PITT DO, MAYNOR K 737.30 SCOLIOSIS (AND KYPHOSCOLIOSIS) IDIOPATHIC 03/19/2011 PITT DO, MAYNOR K 780.93 MEMORY LOSS 03/19/2011 PITT DO, MAYNOR K 788.41 URINARY FREQUENCY 03/19/2011 SANDY DEJESUS APRN R 564.00 CONSTIPATION 03/19/2011 OLEG MCINTOSHSANDY Wheeler 599.0 URINARY TRACT INFECTION 03/19/2011 DEJESUS JOB ANALYSIS MANAGERSANDY Wheeler 737.30 SCOLIOSIS (AND KYPHOSCOLIOSIS) IDIOPATHIC 03/19/2011 OLEG MCINTOSHSANDY Wheeler 780.93 MEMORY LOSS 03/19/2011 OLEG MCINTOSHSANDY Wheeler 788.41 URINARY FREQUENCY 03/19/2011 PITT DO, MAYNOR K 564.00 CONSTIPATION 03/19/2011 PITT DO, MAYNOR K 599.0 URINARY TRACT INFECTION 03/19/2011 PITT DO, MAYNOR K 737.30 SCOLIOSIS (AND KYPHOSCOLIOSIS) IDIOPATHIC 03/19/2011 PITT DO, MAYNOR K 780.93 MEMORY LOSS 03/19/2011 PITT DO, MAYNOR K 788.41 URINARY FREQUENCY 03/19/2011 PITT DO, MAYNOR K 564.00 CONSTIPATION 03/19/2011 PITT DO, MAYNOR K 599.0 URINARY TRACT INFECTION 03/19/2011 PITT DO, MAYNOR K 737.30 SCOLIOSIS (AND KYPHOSCOLIOSIS) IDIOPATHIC 03/19/2011 PITT DO, MAYNOR K 780.93 MEMORY LOSS 03/19/2011 PITT DO, MAYNOR K 788.41 URINARY FREQUENCY 03/19/2011 BALJINDER BINGHAM LATOYA E 564.00 CONSTIPATION 03/19/2011 CHUCKYANASTACIO JAVIER APRNSIE E 599.0 URINARY TRACT INFECTION 03/19/2011 CHUCKYANASTACIO JAVIER APRNSIE E 737.30 SCOLIOSIS (AND KYPHOSCOLIOSIS) IDIOPATHIC 03/19/2011 ANASTACIO GALE APRNSIE E 780.93 MEMORY LOSS 03/19/2011 [facility] APRNSIE E 788.41 URINARY FREQUENCY 03/19/2011 PITT DO, MAYNOR K 564.00 CONSTIPATION 03/19/2011 PITT DO, MAYNOR K 599.0 URINARY TRACT INFECTION 03/19/2011 PITT DO, MAYNOR K 737.30 SCOLIOSIS (AND KYPHOSCOLIOSIS) IDIOPATHIC 03/19/2011 PITT DO, MAYNOR K 780.93 MEMORY LOSS 03/19/2011 PITT DO, MAYNOR K 788.41 URINARY FREQUENCY 03/19/2011 PITT DO, MAYNOR K 564.00 CONSTIPATION 03/19/2011 PITT DO, MAYNOR K 599.0 URINARY TRACT INFECTION 03/19/2011 PITT DO, MAYNOR K 737.30 SCOLIOSIS (AND KYPHOSCOLIOSIS) IDIOPATHIC 03/19/2011 PITT DO, MAYNOR K 780.93 MEMORY LOSS 03/19/2011 PITT DO, MAYNOR K 788.41 URINARY FREQUENCY 03/19/2011 PITT DO, MAYNOR K 564.00 CONSTIPATION 03/19/2011 PITT DO, MAYNOR K 599.0 URINARY TRACT INFECTION 03/19/2011 PITT DO, MAYNOR K 737.30 SCOLIOSIS (AND KYPHOSCOLIOSIS) IDIOPATHIC 03/19/2011 PITT DO, MAYNOR K 780.93 MEMORY LOSS 03/19/2011 PITT DO, MAYNOR K 788.41 URINARY FREQUENCY 03/19/2011 BALJINDER JOB ANALYSIS MANAGERANASTACIOLATOYA E 564.00 CONSTIPATION 03/19/2011 BALJINDER JOB ANALYSIS MANAGERANASTACIOLATOYA E 599.0 URINARY TRACT INFECTION 03/19/2011 BALJINDER JOB ANALYSIS MANAGER, LATOYA E 737.30 SCOLIOSIS (AND KYPHOSCOLIOSIS) IDIOPATHIC 03/19/2011 ANASTACIO GALE APRNSIE E 780.93 MEMORY LOSS 03/19/2011 CHUCKYANASTACIO JAVIER APRNSIE E 788.41 URINARY FREQUENCY 03/19/2011 PITT DO, MAYNOR K 564.00 CONSTIPATION 03/19/2011 PITT DO, MAYNOR K 599.0 URINARY TRACT INFECTION 03/19/2011 PITT DO, MAYNOR K 737.30 SCOLIOSIS (AND KYPHOSCOLIOSIS) IDIOPATHIC 03/19/2011 PITT DO, MAYNOR K 780.93 MEMORY LOSS 03/19/2011 PITT DO, MAYNOR K 788.41 URINARY FREQUENCY 03/19/2011 SANDY DEJESUS APRN R 564.00 CONSTIPATION 03/19/2011 SANDY DEJESUS APRN R 599.0 URINARY TRACT INFECTION 03/19/2011 SANDY DEJESUS APRN R 737.30 SCOLIOSIS (AND KYPHOSCOLIOSIS) IDIOPATHIC 03/19/2011 SANDY DEJESUS APRN R 780.93 MEMORY LOSS 03/19/2011 SANDY DEJESUS APRN R 788.41 URINARY FREQUENCY 03/19/2011 GHASSAN LACIEMF, TEJAL W 564.00 CONSTIPATION 03/19/2011 GHASSAN LCMF, TEJAL W 599.0 URINARY TRACT INFECTION 03/19/2011 GHASSAN LCMF, TEJAL W 737.30 SCOLIOSIS (AND KYPHOSCOLIOSIS) IDIOPATHIC 03/19/2011 GHASSAN KINGSLEYF, TEJAL W 780.93 MEMORY LOSS 03/19/2011 GHASSAN LCMF, TEJAL W 788.41 URINARY FREQUENCY 03/19/2011 ANASTACIO PITT DOA K 564.00 CONSTIPATION 03/19/2011 ANASTACIO PITT DOA K 599.0 URINARY TRACT INFECTION 03/19/2011 PITT DO MAYNOR K 737.30 SCOLIOSIS (AND KYPHOSCOLIOSIS) IDIOPATHIC 03/19/2011 SWEETIE ANGULO MAYNOR K 780.93 MEMORY LOSS 03/19/2011 PITT ANASTACIO ANGULOA K 788.41 URINARY FREQUENCY 03/19/2011 ISAAC PARISH RN E 564.00 CONSTIPATION 03/19/2011 ISAAC PARISH RN 599.0 URINARY TRACT INFECTION 03/19/2011 ISAAC PARISH RN 737.30 SCOLIOSIS (AND KYPHOSCOLIOSIS) IDIOPATHIC 03/19/2011 ISAAC PARISH RN 780.93 MEMORY LOSS 03/19/2011 ISAAC PARISH RN 788.41 URINARY FREQUENCY 03/19/2011 ISAAC PARISH RN E 564.00 CONSTIPATION 03/19/2011 ISAAC PARISH RN E 599.0 URINARY TRACT INFECTION 03/19/2011 ISAAC PARISH RN 737.30 SCOLIOSIS (AND KYPHOSCOLIOSIS) IDIOPATHIC 03/19/2011 ISAAC PARISH RN 780.93 MEMORY LOSS 03/19/2011 ISAAC PARISH RN E 788.41 URINARY FREQUENCY 03/19/2011 ISAAC PARISH RN E 564.00 CONSTIPATION 03/19/2011 ISAAC PARISH RN 599.0 URINARY TRACT INFECTION 03/19/2011 ISAAC PARISH RN 737.30 SCOLIOSIS (AND KYPHOSCOLIOSIS) IDIOPATHIC 03/19/2011 ISAAC PARISH RN E 780.93 MEMORY LOSS 03/19/2011 ISAAC PARISH RN E 788.41 URINARY FREQUENCY 03/19/2011 ISAAC PARISH RN 564.00 CONSTIPATION 03/19/2011 ISAAC PARISH RN E 599.0 URINARY TRACT INFECTION 03/19/2011 ISAAC PARISH RN E 737.30 SCOLIOSIS (AND KYPHOSCOLIOSIS) IDIOPATHIC 03/19/2011 ISAAC PARISH RN 780.93 MEMORY LOSS 03/19/2011 ISAAC PARISH RN 788.41 URINARY FREQUENCY 03/19/2011 PITT DO, MAYNOR K 564.00 CONSTIPATION 03/19/2011 PITT DO, MAYNOR K 599.0 URINARY TRACT INFECTION 03/19/2011 PITT DO, MAYNOR K 737.30 SCOLIOSIS (AND KYPHOSCOLIOSIS) IDIOPATHIC 03/19/2011 PITT DO, MAYNOR K 780.93 MEMORY LOSS 03/19/2011 PITT DO, MAYNOR K 788.41 URINARY FREQUENCY 03/19/2011 PITT DO, MAYNOR K 564.00 CONSTIPATION 03/19/2011 PITT DO, MAYNOR K 599.0 URINARY TRACT INFECTION 03/19/2011 PITT DO, MAYNOR K 737.30 SCOLIOSIS (AND KYPHOSCOLIOSIS) IDIOPATHIC 03/19/2011 PITT DO, MAYNOR K 780.93 MEMORY LOSS 03/19/2011 PITT DO, MAYNOR K 788.41 URINARY FREQUENCY 03/19/2011 PITT DO, MAYNOR K 564.00 CONSTIPATION 03/19/2011 PITT DO, MAYNOR K 599.0 URINARY TRACT INFECTION 03/19/2011 PITT DO, MAYNOR K 737.30 SCOLIOSIS (AND KYPHOSCOLIOSIS) IDIOPATHIC 03/19/2011 PITT DO, MAYNOR K 780.93 MEMORY LOSS 03/19/2011 PITT DO, MAYNOR K 788.41 URINARY FREQUENCY 03/19/2011 ISAAC PARISH RN E 564.00 CONSTIPATION 03/19/2011 ISAAC PARISH RN E 599.0 URINARY TRACT INFECTION 03/19/2011 ISAAC PARISH RN E 737.30 SCOLIOSIS (AND KYPHOSCOLIOSIS) IDIOPATHIC 03/19/2011 ISAAC PARISH RN E 780.93 MEMORY LOSS 03/19/2011 ISAAC PARISH RN E 788.41 URINARY FREQUENCY 03/19/2011 ISAAC PARISH RN E 564.00 CONSTIPATION 03/19/2011 ISAAC PARISH RN E 599.0 URINARY TRACT INFECTION 03/19/2011 ISAAC PARISH RN E 737.30 SCOLIOSIS (AND KYPHOSCOLIOSIS) IDIOPATHIC 03/19/2011 ISAAC PARISH RN 780.93 MEMORY LOSS 03/19/2011 ISAAC PARISH RN E 788.41 URINARY FREQUENCY 03/19/2011 ISAAC PARISH RN E 564.00 CONSTIPATION 03/19/2011 ISAAC PARISH RN E 599.0 URINARY TRACT INFECTION 03/19/2011 ISAAC PARISH RN E 737.30 SCOLIOSIS (AND KYPHOSCOLIOSIS) IDIOPATHIC 03/19/2011 ISAAC PARISH RN E 780.93 MEMORY LOSS 03/19/2011 МАРИНА ROBERT, ISAAC E 788.41 URINARY FREQUENCY 08/24/2011 MELISA ANGELA MD 382.00 ACUTE SUPPURATIVE OTITIS MEDIA WITHOUT SPONTANEOUS RUPTURE OF EARDRUM 08/24/2011 MELISA ANGELA MD 382.00 ACUTE SUPPURATIVE OTITIS MEDIA WITHOUT SPONTANEOUS RUPTURE OF EARDRUM 08/24/2011 MELISA ANGELA MD 382.00 ACUTE SUPPURATIVE OTITIS MEDIA WITHOUT SPONTANEOUS RUPTURE OF EARDRUM 08/24/2011 382.00 ACUTE SUPPURATIVE OTITIS MEDIA WITHOUT SPONTANEOUS RUPTURE OF EARDRUM 08/24/2011 382.00 ACUTE SUPPURATIVE OTITIS MEDIA WITHOUT SPONTANEOUS RUPTURE OF EARDRUM 08/24/2011 382.00 ACUTE SUPPURATIVE OTITIS MEDIA WITHOUT SPONTANEOUS RUPTURE OF EARDRUM 08/24/2011 SWEETIE ANGULO MAYNOR K 382.00 ACUTE SUPPURATIVE OTITIS MEDIA WITHOUT SPONTANEOUS RUPTURE OF EARDRUM 08/24/2011 SWEETIE ANGULO MAYNOR K 382.00 ACUTE SUPPURATIVE OTITIS MEDIA WITHOUT SPONTANEOUS RUPTURE OF EARDRUM 08/24/2011 SWEETIE ANGULO MAYNOR K 382.00 ACUTE SUPPURATIVE OTITIS MEDIA WITHOUT SPONTANEOUS RUPTURE OF EARDRUM 08/24/2011 SANDY DEJESUS APRN 382.00 ACUTE SUPPURATIVE OTITIS MEDIA WITHOUT SPONTANEOUS RUPTURE OF EARDRUM 08/24/2011 SWEETIE ANGULO MAYNOR K 382.00 ACUTE SUPPURATIVE OTITIS MEDIA WITHOUT SPONTANEOUS RUPTURE OF EARDRUM 08/24/2011 SANDY DEJESUS APRN 382.00 ACUTE SUPPURATIVE OTITIS MEDIA WITHOUT SPONTANEOUS RUPTURE OF EARDRUM 08/24/2011 SWEETIE ANGULO MAYNOR K 382.00 ACUTE SUPPURATIVE OTITIS MEDIA WITHOUT SPONTANEOUS RUPTURE OF EARDRUM 08/24/2011 SWEETIE ANGULO MAYNOR K 382.00 ACUTE SUPPURATIVE OTITIS MEDIA WITHOUT SPONTANEOUS RUPTURE OF EARDRUM 08/24/2011 LATOYA GALE APRN 382.00 ACUTE SUPPURATIVE OTITIS MEDIA WITHOUT SPONTANEOUS RUPTURE OF EARDRUM 08/24/2011 SWEETIE ANGULO MAYNOR K 382.00 ACUTE SUPPURATIVE OTITIS MEDIA WITHOUT SPONTANEOUS RUPTURE OF EARDRUM 08/24/2011 SWEETIE ANGULO MAYNOR K 382.00 ACUTE SUPPURATIVE OTITIS MEDIA WITHOUT SPONTANEOUS RUPTURE OF EARDRUM 08/24/2011 SWEETIE ANGULO MAYNOR K 382.00 ACUTE SUPPURATIVE OTITIS MEDIA WITHOUT SPONTANEOUS RUPTURE OF EARDRUM 08/24/2011 LATOYA GALE APRN 382.00 ACUTE SUPPURATIVE OTITIS MEDIA WITHOUT SPONTANEOUS RUPTURE OF EARDRUM 08/24/2011 MAYNOR PITT DO K 382.00 ACUTE SUPPURATIVE OTITIS MEDIA WITHOUT SPONTANEOUS RUPTURE OF EARDRUM 08/24/2011 OLEG BINGHAM SANDY Tyesha 382.00 ACUTE SUPPURATIVE OTITIS MEDIA WITHOUT SPONTANEOUS RUPTURE OF EARDRUM 08/24/2011 GHASSAN MEDELLINTEJAL Reyes 382.00 ACUTE SUPPURATIVE OTITIS MEDIA WITHOUT SPONTANEOUS RUPTURE OF EARDRUM 08/24/2011 MAYNOR PITT DO K 382.00 ACUTE SUPPURATIVE OTITIS MEDIA WITHOUT SPONTANEOUS RUPTURE OF EARDRUM 08/24/2011 ISAAC PARISH RN 382.00 ACUTE SUPPURATIVE OTITIS MEDIA WITHOUT SPONTANEOUS RUPTURE OF EARDRUM 08/24/2011 ISAAC PARISH RN 382.00 ACUTE SUPPURATIVE OTITIS MEDIA WITHOUT SPONTANEOUS RUPTURE OF EARDRUM 08/24/2011 ISAAC PARISH RN 382.00 ACUTE SUPPURATIVE OTITIS MEDIA WITHOUT SPONTANEOUS RUPTURE OF EARDRUM 08/24/2011 ISAAC PARISH RN 382.00 ACUTE SUPPURATIVE OTITIS MEDIA WITHOUT SPONTANEOUS RUPTURE OF EARDRUM 08/24/2011 MAYNOR PITT DO K 382.00 ACUTE SUPPURATIVE OTITIS MEDIA WITHOUT SPONTANEOUS RUPTURE OF EARDRUM 08/24/2011 ANASTACIO PITT DOA K 382.00 ACUTE SUPPURATIVE OTITIS MEDIA WITHOUT SPONTANEOUS RUPTURE OF EARDRUM 08/24/2011 ANASTACIO PITT DOA K 382.00 ACUTE SUPPURATIVE OTITIS MEDIA WITHOUT SPONTANEOUS RUPTURE OF EARDRUM 08/24/2011 ISAAC PARISH RN 382.00 ACUTE SUPPURATIVE OTITIS MEDIA WITHOUT SPONTANEOUS RUPTURE OF EARDRUM 08/24/2011 ISAAC PARISH RN 382.00 ACUTE SUPPURATIVE OTITIS MEDIA WITHOUT SPONTANEOUS RUPTURE OF EARDRUM 08/24/2011 ISAAC PARISH RN 382.00 ACUTE SUPPURATIVE OTITIS MEDIA WITHOUT SPONTANEOUS RUPTURE OF EARDRUM 10/15/2011 MELISA ANGELA MD V58.69 taking high-risk medication 10/15/2011 MELISA ANGELA MD V58.69 taking high-risk medication 10/15/2011 MELISA ANGELA MD V58.69 taking high-risk medication 10/15/2011 V58.69 taking high- risk medication 10/15/2011 V58.69 taking high- risk medication 10/15/2011 V58.69 taking high- risk medication 10/15/2011 MAYNOR PITT DO K V58.69 taking high-risk medication 10/15/2011 PITT MAYNOR ANGULO K V58.69 taking high-risk medication 10/15/2011 PITT DO MAYNOR K V58.69 taking high-risk medication 10/15/2011 SANDY DEJESUS APRN V58.69 taking high-risk medication 10/15/2011 MAYNOR PITT DO K V58.69 taking high-risk medication 10/15/2011 SANDY DEJESUS APRN V58.69 taking high-risk medication 10/15/2011 MAYNOR PITT DO K V58.69 taking high-risk medication 10/15/2011 ANASTACIO PITT DOA K V58.69 taking high-risk medication 10/15/2011 LATOYA GALE APRN V58.69 taking high-risk medication 10/15/2011 MAYNOR PITT DO K V58.69 taking high-risk medication 10/15/2011 MAYNOR PITT DO K V58.69 taking high-risk medication 10/15/2011 MAYNOR PITT DO K V58.69 taking high-risk medication 10/15/2011 LATOYA GALE APRN V58.69 taking high-risk medication 10/15/2011 MAYNOR PITT DO K V58.69 taking high-risk medication 10/15/2011 SANDY DEJESUS APRN V58.69 taking high-risk medication 10/15/2011 TEJAL FISH V58.69 taking high-risk medication 10/15/2011 MAYNOR PITT DO V58.69 taking high-risk medication 10/15/2011 ISAAC PARISH RN V58.69 taking high-risk medication 10/15/2011 ISAAC PARISH RN V58.69 taking high-risk medication 10/15/2011 ISAAC PARISH RN V58.69 taking high-risk medication 10/15/2011 ISAAC PARISH RN V58.69 taking high-risk medication 10/15/2011 MAYNOR PITT DO K V58.69 taking high-risk medication 10/15/2011 MAYNOR PITT DO K V58.69 taking high-risk medication 10/15/2011 MAYNOR PITT DO K V58.69 taking high-risk medication 10/15/2011 МАРИНА ROBERT, ISAAC Reyes V58.69 taking high-risk medication 10/15/2011 МАРИНА ROBERT, ISAAC Reyes V58.69 taking high-risk medication 10/15/2011 МАРИНА ROBERT, ISAAC Reyes V58.69 taking high-risk medication 11/10/2011 COREEN MCCARTY, MELISA 553.00 FEMORAL HERNIA ON THE RIGHT 11/10/2011 MELISA ANGELA MD V76.2 Cervical Pap Smear 11/10/2011 MELISA ANGELA MD 553.00 FEMORAL HERNIA ON THE RIGHT 11/10/2011 MELISA ANGELA MD V76.2 Cervical Pap Smear 11/10/2011 MELISA ANGELA MD 553.00 FEMORAL HERNIA ON THE RIGHT 11/10/2011 MELISA ANGELA MD V76.2 Cervical Pap Smear 11/10/2011 553.00 FEMORAL HERNIA ON THE RIGHT 11/10/2011 V76.2 Cervical Pap Smear 11/10/2011 553.00 FEMORAL HERNIA ON THE RIGHT 11/10/2011 V76.2 Cervical Pap Smear 11/10/2011 553.00 FEMORAL HERNIA ON THE RIGHT 11/10/2011 V76.2 Cervical Pap Smear 11/10/2011 SWEETIE ANGULO, MAYNOR K 553.00 FEMORAL HERNIA ON THE RIGHT 11/10/2011 SWEETIE ANGULO MAYNOR K V76.2 Cervical Pap Smear 11/10/2011 PITT , MAYNOR K 553.00 FEMORAL HERNIA ON THE RIGHT 11/10/2011 PITT DO MAYNOR K V76.2 Cervical Pap Smear 11/10/2011 PITT DO MAYNOR K 553.00 FEMORAL HERNIA ON THE RIGHT 11/10/2011 PITT DO MAYNOR K V76.2 Cervical Pap Smear 11/10/2011 SANDY DEJESUS APRN 553.00 FEMORAL HERNIA ON THE RIGHT 11/10/2011 SANDY DEJESUS APRN V76.2 Cervical Pap Smear 11/10/2011 PITT DO MAYNOR K 553.00 FEMORAL HERNIA ON THE RIGHT 11/10/2011 PITT DO MAYNOR K V76.2 Cervical Pap Smear 11/10/2011 SANDY DEJESUS APRN 553.00 FEMORAL HERNIA ON THE RIGHT 11/10/2011 SANDY DEJESUS APRN V76.2 Cervical Pap Smear 11/10/2011 PITT DO, MAYNOR K 553.00 FEMORAL HERNIA ON THE RIGHT 11/10/2011 PITT DO, MAYNOR K V76.2 Cervical Pap Smear 11/10/2011 PITT DO, MAYNOR K 553.00 FEMORAL HERNIA ON THE RIGHT 11/10/2011 PITT DO, MAYNOR K V76.2 Cervical Pap Smear 11/10/2011 LATOYA GALE APRN E 553.00 FEMORAL HERNIA ON THE RIGHT 11/10/2011 GIDEON GALE APRNE E V76.2 Cervical Pap Smear 11/10/2011 PITT DO, MAYNOR K 553.00 FEMORAL HERNIA ON THE RIGHT 11/10/2011 PITT DO, MAYNOR K V76.2 Cervical Pap Smear 11/10/2011 PITT DO, MAYNOR K 553.00 FEMORAL HERNIA ON THE RIGHT 11/10/2011 PITT DO, MAYNOR K V76.2 Cervical Pap Smear 11/10/2011 PITT DO, MAYNOR K 553.00 FEMORAL HERNIA ON THE RIGHT 11/10/2011 PITT DO, MAYNOR K V76.2 Cervical Pap Smear 11/10/2011 GIDEON GALE APRNE E 553.00 FEMORAL HERNIA ON THE RIGHT 11/10/2011 GIDEON GALE APRNE E V76.2 Cervical Pap Smear 11/10/2011 PITT DO, MAYNOR K 553.00 FEMORAL HERNIA ON THE RIGHT 11/10/2011 PITT DO, MAYNOR K V76.2 Cervical Pap Smear 11/10/2011 SANDY DEJESUS APRN 553.00 FEMORAL HERNIA ON THE RIGHT 11/10/2011 SANDY DEJESUS APRN V76.2 Cervical Pap Smear 11/10/2011 TEJAL FISH W 553.00 FEMORAL HERNIA ON THE RIGHT 11/10/2011 GHASSAN CUNNINGHAM, TEJAL W V76.2 Cervical Pap Smear 11/10/2011 PITT DO, MAYNOR K 553.00 FEMORAL HERNIA ON THE RIGHT 11/10/2011 PITT DO, MAYNOR K V76.2 Cervical Pap Smear 11/10/2011 ISAAC PARISH RN 553.00 FEMORAL HERNIA ON THE RIGHT 11/10/2011 ISAAC PARISH RN V76.2 Cervical Pap Smear 11/10/2011 ISAAC PARISH RN 553.00 FEMORAL HERNIA ON THE RIGHT 11/10/2011 PARISH RN, ISAAC E V76.2 Cervical Pap Smear 11/10/2011 МАРИНА ROBERT, ISAAC E 553.00 FEMORAL HERNIA ON THE RIGHT 11/10/2011 МАРИНА ROBERT, ISAAC E V76.2 Cervical Pap Smear 11/10/2011 МАРИНА ROBERT, ISAAC E 553.00 FEMORAL HERNIA ON THE RIGHT 11/10/2011 ISAAC PARISH RN E V76.2 Cervical Pap Smear 11/10/2011 PITT DO, MAYNOR K 553.00 FEMORAL HERNIA ON THE RIGHT 11/10/2011 PITT DO, MAYNOR K V76.2 Cervical Pap Smear 11/10/2011 PITT DO, MAYNOR K 553.00 FEMORAL HERNIA ON THE RIGHT 11/10/2011 PITT DO, MAYNOR K V76.2 Cervical Pap Smear 11/10/2011 PITT DO, MAYNOR K 553.00 FEMORAL HERNIA ON THE RIGHT 11/10/2011 PITT DO, MAYNOR K V76.2 Cervical Pap Smear 11/10/2011 МАРИНА ROBERT, ISAAC E 553.00 FEMORAL HERNIA ON THE RIGHT 11/10/2011 ISAAC PARISH RN E V76.2 Cervical Pap Smear 11/10/2011 МАРИНА RN, ISAAC E 553.00 FEMORAL HERNIA ON THE RIGHT 11/10/2011 ISAAC PARISH RN E V76.2 Cervical Pap Smear 11/10/2011 МАРИНА ROBERT, ISAAC E 553.00 FEMORAL HERNIA ON THE RIGHT 11/10/2011 МАРИНА ROBERT, ISAAC E V76.2 Cervical Pap Smear 11/17/2011 MELISA ANGELA MD 345.90 EPILEPSY AND RECURRENT SEIZURES 11/17/2011 MELISA ANGELA MD 345.90 EPILEPSY AND RECURRENT SEIZURES 11/17/2011 MELISA ANGELA MD 345.90 EPILEPSY AND RECURRENT SEIZURES 11/17/2011 345.90 EPILEPSY AND RECURRENT SEIZURES 11/17/2011 345.90 EPILEPSY AND RECURRENT SEIZURES 11/17/2011 345.90 EPILEPSY AND RECURRENT SEIZURES 11/17/2011 MAYNOR PITT DO 345.90 EPILEPSY AND RECURRENT SEIZURES 11/17/2011 MAYNOR PITT DO 345.90 EPILEPSY AND RECURRENT SEIZURES 11/17/2011 MAYNOR PITT DO 345.90 EPILEPSY AND RECURRENT SEIZURES 11/17/2011 SANDY DEJESUS APRN 345.90 EPILEPSY AND RECURRENT SEIZURES 11/17/2011 MAYNOR PITT DO 345.90 EPILEPSY AND RECURRENT SEIZURES 11/17/2011 SANDY DEJESUS APRN 345.90 EPILEPSY AND RECURRENT SEIZURES 11/17/2011 MAYNOR PITT DO K 345.90 EPILEPSY AND RECURRENT SEIZURES 11/17/2011 PITT ANASTACIO ANGULOA K 345.90 EPILEPSY AND RECURRENT SEIZURES 11/17/2011 LATOYA GALE APRN E 345.90 EPILEPSY AND RECURRENT SEIZURES 11/17/2011 PITT DO MAYNOR K 345.90 EPILEPSY AND RECURRENT SEIZURES 11/17/2011 PITT DO MAYNOR K 345.90 EPILEPSY AND RECURRENT SEIZURES 11/17/2011 PITT DO MAYNOR K 345.90 EPILEPSY AND RECURRENT SEIZURES 11/17/2011 LATOYA GALE APRN 345.90 EPILEPSY AND RECURRENT SEIZURES 11/17/2011 PITT DO MAYNOR K 345.90 EPILEPSY AND RECURRENT SEIZURES 11/17/2011 SANDY DEJESUS APRN 345.90 EPILEPSY AND RECURRENT SEIZURES 11/17/2011 TEJAL FISH 345.90 EPILEPSY AND RECURRENT SEIZURES 11/17/2011 ANASTACIO PITT DOA K 345.90 EPILEPSY AND RECURRENT SEIZURES 11/17/2011 ISAAC PARISH RN 345.90 EPILEPSY AND RECURRENT SEIZURES 11/17/2011 ISAAC PARISH RN 345.90 EPILEPSY AND RECURRENT SEIZURES 11/17/2011 ISAAC PARISH RN 345.90 EPILEPSY AND RECURRENT SEIZURES 11/17/2011 ISAAC PARISH RN 345.90 EPILEPSY AND RECURRENT SEIZURES 11/17/2011 MAYNOR PITT DO K 345.90 EPILEPSY AND RECURRENT SEIZURES 11/17/2011 ANASTACIO PITT DOA K 345.90 EPILEPSY AND RECURRENT SEIZURES 11/17/2011 ANASTACIO PITT DOA K 345.90 EPILEPSY AND RECURRENT SEIZURES 11/17/2011 ISAAC PARISH RN 345.90 EPILEPSY AND RECURRENT SEIZURES 11/17/2011 ISAAC PARISH RN 345.90 EPILEPSY AND RECURRENT SEIZURES 11/17/2011 ISAAC PARISH RN 345.90 EPILEPSY AND RECURRENT SEIZURES 02/12/2012 MELISA ANGELA MD 314.00 ADHD INATTENTIVE 02/12/2012 MELISA ANGELA MD 314.00 ADHD INATTENTIVE 02/12/2012 MELISA ANGELA MD 314.00 ADHD INATTENTIVE 02/12/2012 314.00 ADHD INATTENTIVE 02/12/2012 314.00 ADHD INATTENTIVE 02/12/2012 314.00 ADHD INATTENTIVE 02/12/2012 PITT DO, MAYNOR K 314.00 ADHD INATTENTIVE 02/12/2012 PITT DO, MAYNOR K 314.00 ADHD INATTENTIVE 02/12/2012 PITT DO, MAYNOR K 314.00 ADHD INATTENTIVE 02/12/2012 DEJESUS JOB ANALYSIS MANAGERSANDY Wheeler R 314.00 ADHD INATTENTIVE 02/12/2012 PITT DO, MAYNOR K 314.00 ADHD INATTENTIVE 02/12/2012 DEJESUS JOB ANALYSIS MANAGER, SANDY R 314.00 ADHD INATTENTIVE 02/12/2012 PITT DO, MAYNOR K 314.00 ADHD INATTENTIVE 02/12/2012 PITT DO, MAYNOR K 314.00 ADHD INATTENTIVE 02/12/2012 HELLWIG JOB ANALYSIS MANAGER, LATOYA E 314.00 ADHD INATTENTIVE 02/12/2012 PITT DO, MAYNOR K 314.00 ADHD INATTENTIVE 02/12/2012 PITT DO, MAYNOR K 314.00 ADHD INATTENTIVE 02/12/2012 PITT DO, MAYNOR K 314.00 ADHD INATTENTIVE 02/12/2012 LATOYA GALE APRN E 314.00 ADHD INATTENTIVE 02/12/2012 PITT DO, MAYNOR K 314.00 ADHD INATTENTIVE 02/12/2012 DEJESUS JOB ANALYSIS MANAGER, SANDY Arambula 314.00 ADHD INATTENTIVE 02/12/2012 GHASSAN MEDELLINTEJAL 314.00 ADHD INATTENTIVE 02/12/2012 PITT DO, MAYNOR K 314.00 ADHD INATTENTIVE 02/12/2012 ISAAC PARISH RN 314.00 ADHD INATTENTIVE 02/12/2012 ISAAC PARISH RN 314.00 ADHD INATTENTIVE 02/12/2012 ISAAC PARISH RN 314.00 ADHD INATTENTIVE 02/12/2012 ISAAC PARISH RN E 314.00 ADHD INATTENTIVE 02/12/2012 PITT DO, MAYNOR K 314.00 ADHD INATTENTIVE 02/12/2012 PITT DO, MAYNOR K 314.00 ADHD INATTENTIVE 02/12/2012 PITT DO, MAYNOR K 314.00 ADHD INATTENTIVE 02/12/2012 ISAAC PARISH RN 314.00 ADHD INATTENTIVE 02/12/2012 ISAAC PARISH RN 314.00 ADHD INATTENTIVE 02/12/2012 ISAAC PARISH RN 314.00 ADHD INATTENTIVE 05/03/2012 MELISA ANGELA MD 795.01 Cerv Pap Smear (+) Atyp Squamous Cells Undetermined Signif 05/03/2012 MELISA ANGELA MD V04.81 FLU DX (3 YRS AND ABOVE, IM) 05/03/2012 MELISA ANGELA MD 795.01 Cerv Pap Smear (+) Atyp Squamous Cells Undetermined Signif 05/03/2012 MELISA ANGELA MD V04.81 FLU DX (3 YRS AND ABOVE, IM) 05/03/2012 MELISA ANGELA MD 795.01 Cerv Pap Smear (+) Atyp Squamous Cells Undetermined Signif 05/03/2012 MELISA ANGELA MD4.81 FLU DX (3 YRS AND ABOVE, IM) 05/03/2012 795.01 Cerv Pap Smear (+) Atyp Squamous Cells Undetermined Signif 05/03/2012 V04.81 FLU DX (3 YRS AND ABOVE, IM) 05/03/2012 795.01 Cerv Pap Smear (+) Atyp Squamous Cells Undetermined Signif 05/03/2012 V04.81 FLU DX (3 YRS AND ABOVE, IM) 05/03/2012 795.01 Cerv Pap Smear (+) Atyp Squamous Cells Undetermined Signif 05/03/2012 V04.81 FLU DX (3 YRS AND ABOVE, IM) 05/03/2012 MAYNOR PITT DO 795.01 Cerv Pap Smear (+) Atyp Squamous Cells Undetermined Signif 05/03/2012 MAYNOR PITT DO V04.81 FLU DX (3 YRS AND ABOVE, IM) 05/03/2012 MAYNOR PITT DO 795.01 Cerv Pap Smear (+) Atyp Squamous Cells Undetermined Signif 05/03/2012 MAYNOR PITT DO V04.81 FLU DX (3 YRS AND ABOVE, IM) 05/03/2012 MAYNOR PITT DO 795.01 Cerv Pap Smear (+) Atyp Squamous Cells Undetermined Signif 05/03/2012 MAYNOR PITT DO V04.81 FLU DX (3 YRS AND ABOVE, IM) 05/03/2012 SANDY DEJESUS APRN 795.01 Cerv Pap Smear (+) Atyp Squamous Cells Undetermined Signif 05/03/2012 SANDY DEJESUS APRN V04.81 FLU DX (3 YRS AND ABOVE, IM) 05/03/2012 MAYNOR PITT DO 795.01 Cerv Pap Smear (+) Atyp Squamous Cells Undetermined Signif 05/03/2012 MAYNOR PITT DO V04.81 FLU DX (3 YRS AND ABOVE, IM) 05/03/2012 SANDY DEJESUS APRN 795.01 Cerv Pap Smear (+) Atyp Squamous Cells Undetermined Signif 05/03/2012 SANDY DEJESUS APRN V04.81 FLU DX (3 YRS AND ABOVE, IM) 05/03/2012 PITT MAYNOR ANGULO 795.01 Cerv Pap Smear (+) Atyp Squamous Cells Undetermined Signif 05/03/2012 PITT MAYNOR ANGULO K V04.81 FLU DX (3 YRS AND ABOVE, IM) 05/03/2012 MANYOR PITT DO K 795.01 Cerv Pap Smear (+) Atyp Squamous Cells Undetermined Signif 05/03/2012 PITT MAYNOR ANGULO K V04.81 FLU DX (3 YRS AND ABOVE, IM) 05/03/2012 LATOYA GALE APRN 795.01 Cerv Pap Smear (+) Atyp Squamous Cells Undetermined Signif 05/03/2012 LATOYA GALE APRN V04.81 FLU DX (3 YRS AND ABOVE, IM) 05/03/2012 MAYNOR PITT DO K 795.01 Cerv Pap Smear (+) Atyp Squamous Cells Undetermined Signif 05/03/2012 MAYNOR PITT DO K V04.81 FLU DX (3 YRS AND ABOVE, IM) 05/03/2012 MAYNOR PITT DO K 795.01 Cerv Pap Smear (+) Atyp Squamous Cells Undetermined Signif 05/03/2012 ANASTACIO PITT DOA K V04.81 FLU DX (3 YRS AND ABOVE, IM) 05/03/2012 MAYNOR PITT DO K 795.01 Cerv Pap Smear (+) Atyp Squamous Cells Undetermined Signif 05/03/2012 MAYNOR PITT DO K V04.81 FLU DX (3 YRS AND ABOVE, IM) 05/03/2012 LATOYA GALE APRN 795.01 Cerv Pap Smear (+) Atyp Squamous Cells Undetermined Signif 05/03/2012 LATOYA GALE APRN V04.81 FLU DX (3 YRS AND ABOVE, IM) 05/03/2012 MAYNOR PITT DO K 795.01 Cerv Pap Smear (+) Atyp Squamous Cells Undetermined Signif 05/03/2012 PITT MAYNOR ANGULO K V04.81 FLU DX (3 YRS AND ABOVE, IM) 05/03/2012 SANDY DEJESUS APRN 795.01 Cerv Pap Smear (+) Atyp Squamous Cells Undetermined Signif 05/03/2012 SANDY DEJESUS APRN V04.81 FLU DX (3 YRS AND ABOVE, IM) 05/03/2012 GHASSAN KINGSLEYF, TEJAL Middleton 795.01 Cerv Pap Smear (+) Atyp Squamous Cells Undetermined Signif 05/03/2012 GHASSAN KINGSLEYF, TEJAL [place] V04.81 FLU DX (3 YRS AND ABOVE, IM) 05/03/2012 MAYNOR PITT DO 795.01 Cerv Pap Smear (+) Atyp Squamous Cells Undetermined Signif 05/03/2012 MAYNOR PITT DO V04.81 FLU DX (3 YRS AND ABOVE, IM) 05/03/2012 ISAAC PARISH RN 795.01 Cerv Pap Smear (+) Atyp Squamous Cells Undetermined Signif 05/03/2012 ISAAC PARISH RN V04.81 FLU DX (3 YRS AND ABOVE, IM) 05/03/2012 ISAAC PARISH RN 795.01 Cerv Pap Smear (+) Atyp Squamous Cells Undetermined Signif 05/03/2012 ISAAC PARISH RN V04.81 FLU DX (3 YRS AND ABOVE, IM) 05/03/2012 ISAAC PARISH RN 795.01 Cerv Pap Smear (+) Atyp Squamous Cells Undetermined Signif 05/03/2012 ISAAC PARISH RN V04.81 FLU DX (3 YRS AND ABOVE, IM) 05/03/2012 ISAAC PARISH RN 795.01 Cerv Pap Smear (+) Atyp Squamous Cells Undetermined Signif 05/03/2012 ISAAC PARISH RN V04.81 FLU DX (3 YRS AND ABOVE, IM) 05/03/2012 MAYNOR PITT DO 795.01 Cerv Pap Smear (+) Atyp Squamous Cells Undetermined Signif 05/03/2012 MAYNOR PITT DO K V04.81 FLU DX (3 YRS AND ABOVE, IM) 05/03/2012 MAYNOR PITT DO 795.01 Cerv Pap Smear (+) Atyp Squamous Cells Undetermined Signif 05/03/2012 MAYNOR PITT DO K V04.81 FLU DX (3 YRS AND ABOVE, IM) 05/03/2012 MAYNOR PITT DO 795.01 Cerv Pap Smear (+) Atyp Squamous Cells Undetermined Signif 05/03/2012 MAYNOR PITT DO K V04.81 FLU DX (3 YRS AND ABOVE, IM) 05/03/2012 МАРИНА ROBERT, ISAAC E 795.01 Cerv Pap Smear (+) Atyp Squamous Cells Undetermined Signif 05/03/2012 МАРИНА ROBERT, ISAAC E V04.81 FLU DX (3 YRS AND ABOVE, IM) 05/03/2012 АМРИНА ROBERT, ISAAC E 795.01 Cerv Pap Smear (+) Atyp Squamous Cells Undetermined Signif 05/03/2012 МАРИНА ROBERT, ISAAC E V04.81 FLU DX (3 YRS AND ABOVE, IM) 05/03/2012 МАРИНА RN, ISAAC E 795.01 Cerv Pap Smear (+) Atyp Squamous Cells Undetermined Signif 05/03/2012 МАРИНА ROBERT, ISAAC E V04.81 FLU DX (3 YRS AND ABOVE, IM) 05/09/2012 COREEN MCCARTY, MELISA 616.2 BARTHOLIN CYST 05/09/2012 COREEN MCCARTY, MELISA 616.2 BARTHOLIN CYST 05/09/2012 MELISA ANGELA MD 616.2 BARTHOLIN CYST 05/09/2012 616.2 BARTHOLIN CYST 05/09/2012 616.2 BARTHOLIN CYST 05/09/2012 616.2 BARTHOLIN CYST 05/09/2012 PITT MAYNOR ANGULO K 616.2 BARTHOLIN CYST 05/09/2012 PITT MAYNOR ANGULO K 616.2 BARTHOLIN CYST 05/09/2012 PITT DOMAYNOR K 616.2 BARTHOLIN CYST 05/09/2012 SANDY DEJESUS APRN 616.2 BARTHOLIN CYST 05/09/2012 PITT DOMAYNOR K 616.2 BARTHOLIN CYST 05/09/2012 SANDY DEJESUS APRN 616.2 BARTHOLIN CYST 05/09/2012 PITT DOMAYNOR K 616.2 BARTHOLIN CYST 05/09/2012 PITT DOANASTACIOA K 616.2 BARTHOLIN CYST 05/09/2012 LATOYA GALE APRN 616.2 BARTHOLIN CYST 05/09/2012 PITT DOANASTACIOA K 616.2 BARTHOLIN CYST 05/09/2012 PITT DOANASTACIOA K 616.2 BARTHOLIN CYST 05/09/2012 PITT DOANASTACIOA K 616.2 BARTHOLIN CYST 05/09/2012 LATOYA GALE APRN 616.2 BARTHOLIN CYST 05/09/2012 PITT DO, MAYNOR K 616.2 BARTHOLIN CYST 05/09/2012 SANDY DEJESUS APRN 616.2 BARTHOLIN CYST 05/09/2012 TEJAL FISH 616.2 BARTHOLIN CYST 05/09/2012 PITT DO, MAYNOR K 616.2 BARTHOLIN CYST 05/09/2012 МАРИНА ROBERT, ISAAC E 616.2 BARTHOLIN CYST 05/09/2012 МАРИНА ROBERT, ISAAC E 616.2 BARTHOLIN CYST 05/09/2012 МАРИНА ROBERT, ISAAC E 616.2 BARTHOLIN CYST 05/09/2012 МАРИНА ROBERT, ISAAC E 616.2 BARTHOLIN CYST 05/09/2012 PITT DO, MAYNOR K 616.2 BARTHOLIN CYST 05/09/2012 PITT DO, MAYNOR K 616.2 BARTHOLIN CYST 05/09/2012 PITT DO, MAYNOR K 616.2 BARTHOLIN CYST 05/09/2012 МАРИНА ROBERT, ISAAC E 616.2 BARTHOLIN CYST 05/09/2012 МАРИНА ROBERT, ISAAC E 616.2 BARTHOLIN CYST 05/09/2012 МАРИНА ROBERT, ISAAC E 616.2 BARTHOLIN CYST 08/26/2012 COREEN MCCARTY, MELISA 799.22 Mood Irritable 08/26/2012 799.22 Mood Irritable 08/26/2012 799.22 Mood Irritable 08/26/2012 799.22 Mood Irritable 08/26/2012 MAYNOR PITT DO 799.22 Mood Irritable 08/26/2012 MAYNOR PITT DO 799.22 Mood Irritable 08/26/2012 ANASTACIO PITT DOA K 799.22 Mood Irritable 08/26/2012 SANDY DEJESUS APRN 799.22 Mood Irritable 08/26/2012 PITT MAYNOR ANGULO 799.22 Mood Irritable 08/26/2012 SANDY DEJESUS APRN 799.22 Mood Irritable 08/26/2012 MAYNOR PITT DO 799.22 Mood Irritable 08/26/2012 PITT ANASTACIO ANGULOA K 799.22 Mood Irritable 08/26/2012 LATOYA GALE APRN 799.22 Mood Irritable 08/26/2012 PITT DO, MAYNOR K 799.22 Mood Irritable 08/26/2012 PITT DO, MAYNOR K 799.22 Mood Irritable 08/26/2012 PITT DO, MAYNOR K 799.22 Mood Irritable 08/26/2012 LATOYA GALE APRN 799.22 Mood Irritable 08/26/2012 PITT DO, MAYNOR K 799.22 Mood Irritable 08/26/2012 SANDY DEJESUS APRN 799.22 Mood Irritable 08/26/2012 TEJAL FISH 799.22 Mood Irritable 08/26/2012 PITT DO, MAYNOR K 799.22 Mood Irritable 08/26/2012 МАРИНА RN, ISAAC E 799.22 Mood Irritable 08/26/2012 МАРИНА RN, ISAAC E 799.22 Mood Irritable 08/26/2012 МАРИНА RN, ISAAC E 799.22 Mood Irritable 08/26/2012 МАРИНА ROBERT, ISAAC E 799.22 Mood Irritable 08/26/2012 PITT DO, MAYNOR K 799.22 Mood Irritable 08/26/2012 PITT DO, MAYNOR K 799.22 Mood Irritable 08/26/2012 PITT DO, MAYNOR K 799.22 Mood Irritable 08/26/2012 МАРИНА RN, ISAAC E 799.22 Mood Irritable 08/26/2012 МАРИНА RN, ISAAC E 799.22 Mood Irritable 08/26/2012 МАРИНА RN, ISAAC E 799.22 Mood Irritable 02/27/2013 V61.10 UNSPECIFIED COUNSELING FOR MARITAL AND PARTNER PROBLEMS 02/27/2013 PITT DO MAYNOR K V61.10 UNSPECIFIED COUNSELING FOR MARITAL AND PARTNER PROBLEMS 02/27/2013 PITT DO, MAYNOR K V61.10 UNSPECIFIED COUNSELING FOR MARITAL AND PARTNER PROBLEMS 02/27/2013 PITT DO MAYNOR K V61.10 UNSPECIFIED COUNSELING FOR MARITAL AND PARTNER PROBLEMS 02/27/2013 SANDY DEJESUS APRN V61.10 UNSPECIFIED COUNSELING FOR MARITAL AND PARTNER PROBLEMS 02/27/2013 PITT DO MAYNOR K V61.10 UNSPECIFIED COUNSELING FOR MARITAL AND PARTNER PROBLEMS 02/27/2013 SANDY DEJESUS APRN V61.10 UNSPECIFIED COUNSELING FOR MARITAL AND PARTNER PROBLEMS 02/27/2013 SWEETIE ANGULO MAYNOR K V61.10 UNSPECIFIED COUNSELING FOR MARITAL AND PARTNER PROBLEMS 02/27/2013 PITT DO MAYNOR K V61.10 UNSPECIFIED COUNSELING FOR MARITAL AND PARTNER PROBLEMS 02/27/2013 LATOYA GALE APRN E V61.10 UNSPECIFIED COUNSELING FOR MARITAL AND PARTNER PROBLEMS 02/27/2013 PITT DO, MAYNOR K V61.10 UNSPECIFIED COUNSELING FOR MARITAL AND PARTNER PROBLEMS 02/27/2013 PITT DO, MAYNOR K V61.10 UNSPECIFIED COUNSELING FOR MARITAL AND PARTNER PROBLEMS 02/27/2013 PITT DO, MAYNOR K V61.10 UNSPECIFIED COUNSELING FOR MARITAL AND PARTNER PROBLEMS 02/27/2013 LATOYA GALE APRN E V61.10 UNSPECIFIED COUNSELING FOR MARITAL AND PARTNER PROBLEMS 02/27/2013 PITT DO, MAYNOR K V61.10 UNSPECIFIED COUNSELING FOR MARITAL AND PARTNER PROBLEMS 02/27/2013 SANDY DEJESUS APRN V61.10 UNSPECIFIED COUNSELING FOR MARITAL AND PARTNER PROBLEMS 02/27/2013 TEJAL FISH V61.10 UNSPECIFIED COUNSELING FOR MARITAL AND PARTNER PROBLEMS 02/27/2013 PITT DO MAYNOR K V61.10 UNSPECIFIED COUNSELING FOR MARITAL AND PARTNER PROBLEMS 02/27/2013 ISAAC PARISH RN E V61.10 UNSPECIFIED COUNSELING FOR MARITAL AND PARTNER PROBLEMS 02/27/2013 ISAAC PARISH RN E V61.10 UNSPECIFIED COUNSELING FOR MARITAL AND PARTNER PROBLEMS 02/27/2013 ISAAC PARISH RN E V61.10 UNSPECIFIED COUNSELING FOR MARITAL AND PARTNER PROBLEMS 02/27/2013 ISAAC PARISH RN E V61.10 UNSPECIFIED COUNSELING FOR MARITAL AND PARTNER PROBLEMS 02/27/2013 PITT DO MAYNOR K V61.10 UNSPECIFIED COUNSELING FOR MARITAL AND PARTNER PROBLEMS 02/27/2013 PITT DO MAYNOR K V61.10 UNSPECIFIED COUNSELING FOR MARITAL AND PARTNER PROBLEMS 02/27/2013 PITT DO MAYNOR K V61.10 UNSPECIFIED COUNSELING FOR MARITAL AND PARTNER PROBLEMS 02/27/2013 ISAAC PARISH RN E V61.10 UNSPECIFIED COUNSELING FOR MARITAL AND PARTNER PROBLEMS 02/27/2013 ISAAC PARISH RN E V61.10 UNSPECIFIED COUNSELING FOR MARITAL AND PARTNER PROBLEMS 02/27/2013 ISAAC PARISH RN E V61.10 UNSPECIFIED COUNSELING FOR MARITAL AND PARTNER PROBLEMS 03/09/2013 296.90 MOOD DISORDER 03/09/2013 PITT DO, MAYNOR K 296.90 MOOD DISORDER 03/09/2013 PITT DO, MAYNOR K 296.90 MOOD DISORDER 03/09/2013 PITT DO, MAYNOR K 296.90 MOOD DISORDER 03/09/2013 SANDY DEJESUS APRN R 296.90 MOOD DISORDER 03/09/2013 PITT DO, MAYNOR K 296.90 MOOD DISORDER 03/09/2013 SANDY DEJESUS APRN R 296.90 MOOD DISORDER 03/09/2013 PITT DO, MAYNOR K 296.90 MOOD DISORDER 03/09/2013 PITT DO, MAYNOR K 296.90 MOOD DISORDER 03/09/2013 BALJINDER BINGHAM, LATOYA E 296.90 MOOD DISORDER 03/09/2013 PITT DO, MAYNOR K 296.90 MOOD DISORDER 03/09/2013 PITT DO, MAYNOR K 296.90 MOOD DISORDER 03/09/2013 PITT DO, MAYNOR K 296.90 MOOD DISORDER 03/09/2013 ANASTACIO GALE APRNSIE E 296.90 MOOD DISORDER 03/09/2013 PITT DO, MAYNOR K 296.90 MOOD DISORDER 03/09/2013 SANDY DEJESUS APRN 296.90 MOOD DISORDER 03/09/2013 GHASSAN MEDELLIN, TEJAL Middleton 296.90 MOOD DISORDER 03/09/2013 PITT DO, MAYNOR K 296.90 MOOD DISORDER 03/09/2013 МАРИНА ROBERT, ISAAC E 296.90 MOOD DISORDER 03/09/2013 МАРИНА ROBERT, ISAAC E 296.90 MOOD DISORDER 03/09/2013 МАРИНА ROBERT, ISAAC E 296.90 MOOD DISORDER 03/09/2013 МАРИНА ROBERT, ISAAC E 296.90 MOOD DISORDER 03/09/2013 PITT DO, MAYNOR K 296.90 MOOD DISORDER 03/09/2013 PITT DO, MAYNOR K 296.90 MOOD DISORDER 03/09/2013 PITT DO, MAYNOR K 296.90 MOOD DISORDER 03/09/2013 МАРИНА ROBERT, ISAAC E 296.90 MOOD DISORDER 03/09/2013 МАРИНА ROBERT, ISAAC E 296.90 MOOD DISORDER 03/09/2013 МАРИНА ROBERT, ISAAC E 296.90 MOOD DISORDER 2013 PITT DO, MAYNOR K 682.8 CELLULITIS AND ABSCESS OF OTHER SPECIFIED SITES 2013 PITT DO, MAYNOR K 682.8 CELLULITIS AND ABSCESS OF OTHER SPECIFIED SITES 2013 PITT DO, MAYNOR K 682.8 CELLULITIS AND ABSCESS OF OTHER SPECIFIED SITES 2013 SANDY DEJESUS APRN 682.8 CELLULITIS AND ABSCESS OF OTHER SPECIFIED SITES 2013 MAYNOR PITT DO 682.8 CELLULITIS AND ABSCESS OF OTHER SPECIFIED SITES 2013 SANDY DEJESUS APRN 682.8 CELLULITIS AND ABSCESS OF OTHER SPECIFIED SITES 2013 MAYNOR PITT DO K 682.8 CELLULITIS AND ABSCESS OF OTHER SPECIFIED SITES 2013 ANASTACIO PITT DOA K 682.8 CELLULITIS AND ABSCESS OF OTHER SPECIFIED SITES 2013 LATOYA GALE APRN 682.8 CELLULITIS AND ABSCESS OF OTHER SPECIFIED SITES 2013 ANASTACIO PITT DOA K 682.8 CELLULITIS AND ABSCESS OF OTHER SPECIFIED SITES 2013 ANASTACIO PITT DOA K 682.8 CELLULITIS AND ABSCESS OF OTHER SPECIFIED SITES 2013 ANASTACIO PITT DOA K 682.8 CELLULITIS AND ABSCESS OF OTHER SPECIFIED SITES 2013 LATOYA GALE APRN 682.8 CELLULITIS AND ABSCESS OF OTHER SPECIFIED SITES 2013 MAYNOR PITT DO K 682.8 CELLULITIS AND ABSCESS OF OTHER SPECIFIED SITES 2013 SANDY DEJESUS APRN 682.8 CELLULITIS AND ABSCESS OF OTHER SPECIFIED SITES 2013 TEJAL FISH 682.8 CELLULITIS AND ABSCESS OF OTHER SPECIFIED SITES 2013 MAYNOR PITT DO K 682.8 CELLULITIS AND ABSCESS OF OTHER SPECIFIED SITES 2013 ISAAC PARISH RN 682.8 CELLULITIS AND ABSCESS OF OTHER SPECIFIED SITES 2013 ISAAC PARISH RN 682.8 CELLULITIS AND ABSCESS OF OTHER SPECIFIED SITES 2013 ISAAC PARISH RN 682.8 CELLULITIS AND ABSCESS OF OTHER SPECIFIED SITES 2013 ISAAC PARISH RN 682.8 CELLULITIS AND ABSCESS OF OTHER SPECIFIED SITES 2013 MAYNOR PITT DO K 682.8 CELLULITIS AND ABSCESS OF OTHER SPECIFIED SITES 2013 ANASTACIO PITT DOA K 682.8 CELLULITIS AND ABSCESS OF OTHER SPECIFIED SITES 2013 ANASTACIO PITT DOA K 682.8 CELLULITIS AND ABSCESS OF OTHER SPECIFIED SITES 2013 МАРИНА ROBRET, ISAAC E 682.8 CELLULITIS AND ABSCESS OF OTHER SPECIFIED SITES 2013 МАРИНА ROBERT, ISAAC E 682.8 CELLULITIS AND ABSCESS OF OTHER SPECIFIED SITES 2013 МАРИНА ROBERT, ISAAC E 682.8 CELLULITIS AND ABSCESS OF OTHER SPECIFIED SITES 12/01/2013 BALJINDER JOB ANALYSIS MANAGERLATOYA E 461.0 ACUTE MAXILLARY SINUSITIS 12/01/2013 HELLWIG JOB ANALYSIS MANAGERLATOYA E 521.00 UNSPECIFIED DENTAL CARIES 12/01/2013 HELLWIG JOB ANALYSIS MANAGERLATOYA E 522.0 PULPITIS 12/01/2013 ANASTACIO PITT DOA K 461.0 ACUTE MAXILLARY SINUSITIS 12/01/2013 PITT ANASTACIO ANGULOA K 521.00 UNSPECIFIED DENTAL CARIES 12/01/2013 SWEETIE ANGULO, MYANOR K 522.0 PULPITIS 12/01/2013 SANDY DEJESUS APRN 461.0 ACUTE MAXILLARY SINUSITIS 12/01/2013 SANDY DEJESUS APRN 521.00 UNSPECIFIED DENTAL CARIES 12/01/2013 SANDY DEJESUS APRN 522.0 PULPITIS 12/01/2013 GHASSAN LCMF, TEJAL W 461.0 ACUTE MAXILLARY SINUSITIS 12/01/2013 GHASSAN LCMF, TEJAL W 521.00 UNSPECIFIED DENTAL CARIES 12/01/2013 GHASSAN LCMF, TEJAL W 522.0 PULPITIS 12/01/2013 MAYNOR PITT DO K 461.0 ACUTE MAXILLARY SINUSITIS 12/01/2013 MAYNOR PITT DO K 521.00 UNSPECIFIED DENTAL CARIES 12/01/2013 PITT , MAYNOR K 522.0 PULPITIS 12/01/2013 ISAAC PARISH RN 461.0 ACUTE MAXILLARY SINUSITIS 12/01/2013 ISAAC PARISH RN 521.00 UNSPECIFIED DENTAL CARIES 12/01/2013 ISAAC PARISH RN 522.0 PULPITIS 12/01/2013 ISAAC PARISH RN E 461.0 ACUTE MAXILLARY SINUSITIS 12/01/2013 ISAAC PARISH RN E 521.00 UNSPECIFIED DENTAL CARIES 12/01/2013 ISAAC PARISH RN 522.0 PULPITIS 12/01/2013 ISAAC PARISH RN E 461.0 ACUTE MAXILLARY SINUSITIS 12/01/2013 ISAAC PARISH RN E 521.00 UNSPECIFIED DENTAL CARIES 12/01/2013 ISAAC PARISH RN E 522.0 PULPITIS 12/01/2013 ISAAC PARISH RN E 461.0 ACUTE MAXILLARY SINUSITIS 12/01/2013 ISAAC PARISH RN E 521.00 UNSPECIFIED DENTAL CARIES 12/01/2013 ISAAC PARISH RN 522.0 PULPITIS 12/01/2013 PITT DO, MAYNOR K 461.0 ACUTE MAXILLARY SINUSITIS 12/01/2013 PITT DO, MAYNOR K 521.00 UNSPECIFIED DENTAL CARIES 12/01/2013 PITT DO, MAYNOR K 522.0 PULPITIS 12/01/2013 PITT DO, MAYNOR K 461.0 ACUTE MAXILLARY SINUSITIS 12/01/2013 PITT DO, MAYNOR K 521.00 UNSPECIFIED DENTAL CARIES 12/01/2013 PITT DO, MAYNOR K 522.0 PULPITIS 12/01/2013 PITT DO, MAYNOR K 461.0 ACUTE MAXILLARY SINUSITIS 12/01/2013 PITT DO, MAYNOR K 521.00 UNSPECIFIED DENTAL CARIES 12/01/2013 PITT DO, MAYNOR K 522.0 PULPITIS 12/01/2013 ISAAC PARISH RN E 461.0 ACUTE MAXILLARY SINUSITIS 12/01/2013 ISAAC PARISH RN E 521.00 UNSPECIFIED DENTAL CARIES 12/01/2013 ISAAC PARISH RN E 522.0 PULPITIS 12/01/2013 ISAAC PARISH RN E 461.0 ACUTE MAXILLARY SINUSITIS 12/01/2013 ISAAC PARISH RN E 521.00 UNSPECIFIED DENTAL CARIES 12/01/2013 ISAAC PARISH RN E 522.0 PULPITIS 12/01/2013 ISAAC PARISH RN E 461.0 ACUTE MAXILLARY SINUSITIS 12/01/2013 ISAAC PARISH RN E 521.00 UNSPECIFIED DENTAL CARIES 12/01/2013 ISAAC PARISH RN E 522.0 PULPITIS 03/14/2014 ISAAC PARISH RN E 296.40 BIPOLAR I DISORDER MOST RECENT EPISODE (OR CURRENT) MANIC UNSPECIFIED 03/14/2014 ISAAC PARISH RN E 296.40 BIPOLAR I DISORDER MOST RECENT EPISODE (OR CURRENT) MANIC UNSPECIFIED 03/14/2014 ISAAC PARISH RN E 296.40 BIPOLAR I DISORDER MOST RECENT EPISODE (OR CURRENT) MANIC UNSPECIFIED 03/14/2014 ISAAC PARISH RN 296.40 BIPOLAR I DISORDER MOST RECENT EPISODE (OR CURRENT) MANIC UNSPECIFIED 03/14/2014 MAYNOR PITT DO 296.40 BIPOLAR I DISORDER MOST RECENT EPISODE (OR CURRENT) MANIC UNSPECIFIED 03/14/2014 MAYNOR PITT DO 296.40 BIPOLAR I DISORDER MOST RECENT EPISODE (OR CURRENT) MANIC UNSPECIFIED 03/14/2014 MAYNOR PITT DO 296.40 BIPOLAR I DISORDER MOST RECENT EPISODE (OR CURRENT) MANIC UNSPECIFIED 03/14/2014 ISAAC PARISH RN 296.40 BIPOLAR I DISORDER MOST RECENT EPISODE (OR CURRENT) MANIC UNSPECIFIED 03/14/2014 ISAAC PARISH RN 296.40 BIPOLAR I DISORDER MOST RECENT EPISODE (OR CURRENT) MANIC UNSPECIFIED 03/14/2014 ISAAC PARISH RN 296.40 BIPOLAR I DISORDER MOST RECENT EPISODE (OR CURRENT) MANIC UNSPECIFIED Procedures Code Description Performed By Performed On Obstetric Roseann Forde 05/13/2012 08561 URINE TEST (IN- HOUSE) 06/07/2012 47296 COLP W/ BX & ECC 06/07/2012 89295 URINE DRUG SCREEN (IN-HOUSE ) 08/26/2012 92132 URINE DRUG SCREEN (IN-HOUSE ) 12/15/2012 URINEDRUG URINE DRUG SCREEN (CON'F ) 12/15/2012 23861 URINE DRUG SCREEN (IN-HOUSE ) 12/21/2012 14617 URINE DRUG SCREEN (IN-HOUSE ) 03/09/2013 URINEDRUG URINE DRUG SCREEN (CON'F ) 03/11/2013 70555 URINE DRUG SCREEN (IN-HOUSE ) 09/07/2013 58465 TEST, URINE (IN- HOUSE) 09/07/2013 42414 URINE DRUG SCREEN (IN-HOUSE ) 10/03/2013 41670 UA LONG DIP 10/12/2013 99328 UA LONG DIP 11/02/2013 79099 URINE DRUG SCREEN (IN-HOUSE ) 11/02/2013 URINEDRUG URINE DRUG SCREEN (CON'F ) 11/02/2013 66812 URINE DRUG SCREEN (IN-HOUSE ) 11/13/2013 49756 URINE DRUG SCREEN (IN-HOUSE ) 11/15/2013 88587 URINE DRUG SCREEN (IN-HOUSE ) 01/29/2014 S0280 HEALTH PROMOTION 03/21/2014 S0280 HEALTH PROMOTION 04/05/2014 S0280 HEALTH PROMOTION 04/05/2014 S0280 HEALTH PROMOTION 04/05/2014 S0280 HEALTH PROMOTION 04/23/2014 S0281 CARE COORDINATION 04/23/2014 77078 URINE DRUG SCREEN (IN-HOUSE ) 05/02/2014 S0280 HEALTH PROMOTION 05/17/2014 84894 URINE DRUG SCREEN (IN-HOUSE ) 06/01/2014 18132 URINE DRUG SCREEN (IN-HOUSE ) 06/28/2014 66850 URINE DRUG SCREEN (IN-HOUSE ) 07/30/2014 Results There is no data. Encounters ACCT No. Visit Date/Time Discharge Status Pt. Type Provider Facility Loc./Unit Complaint [id number] 09/04/2014 00:00:00 09/04/2014 23:59:59 CLS Outpatient ISAAC PARISH RN [id number] 08/15/2014 00:00:00 08/15/2014 23:59:59 CLS Outpatient ISAAC PARISH RN [id number] 07/30/2014 12:04:00 07/30/2014 23:59:59 CLS Outpatient MAYNOR PITT DO [id number] 07/17/2014 00:00:00 07/17/2014 23:59:59 CLS Outpatient ISAAC PARISH RN [id number] 06/28/2014 15:35:00 06/28/2014 23:59:59 CLS Outpatient MAYNOR PITT DO [id number] 06/01/2014 16:03:00 06/01/2014 23:59:59 JEEVAN Outpatient MAYNOR PITT DO [id number] 05/03/2014 15:00:00 05/03/2014 23:59:59 CLS Outpatient ISAAC PARISH RN [id number] 04/16/2014 09:55:00 04/16/2014 23:59:59 CLS Outpatient ISAAC PARISH RN [id number] 04/02/2014 16:18:00 04/02/2014 23:59:59 CLS Outpatient MAYNOR PITT DO [id number] 03/19/2014 15:00:00 03/19/2014 23:59:59 CLS Outpatient ISAAC PARISH RN [id number] 03/14/2014 10:10:00 03/14/2014 23:59:59 CLS Outpatient ISAAC PARISH RN [id number] 02/12/2014 08:56:00 02/12/2014 23:59:59 [id number] 01/02/2014 08:31:00 01/02/2014 23:59:59 CLS Outpatient OLEG MCINTOSHSANDY Wheeler [id number] 12/04/2013 11:35:00 12/04/2013 23:59:59 CLS Outpatient PITT DO MAYNOR Cheng [id number] 12/01/2013 09:32:00 12/01/2013 23:59:59 CLS Outpatient CHUCKYLLATOYA JAVIER APRN [id number] 11/15/2013 08:34:00 11/15/2013 23:59:59 CLS Outpatient PITT DO MAYNOR Cheng [id number] 11/13/2013 12:03:00 11/13/2013 23:59:59 CLS Outpatient PITT DO MAYNOR Cheng [id number] 11/02/2013 08:30:00 11/02/2013 23:59:59 CLS Outpatient PITT DO MAYNOR Cheng [id number] 10/12/2013 14:58:00 10/12/2013 23:59:59 CLS Outpatient HELLLATOYA JAVIER APRN [id number] 10/12/2013 14:58:00 10/12/2013 23:59:59 CLS Outpatient PITT DO MAYNOR Cheng [id number] 10/03/2013 08:28:00 10/03/2013 23:59:59 CLS Outpatient PITT DO MAYNOR Cheng [id number] 09/07/2013 09:47:00 09/07/2013 23:59:59 CLS Outpatient PITT DO MAYNOR Cheng [id number] 09/07/2013 09:47:00 09/07/2013 23:59:59 CLS Outpatient OLEG MCINTOSHSANDY Wheeler [id number] 07/10/2013 09:01:00 07/10/2013 23:59:59 CLS Outpatient OLEG MCINTOSHSANDY Wheeler [id number] 06/15/2013 14:32:00 06/15/2013 23:59:59 CLS Outpatient PITT DO MAYNOR Cheng [id number] 05/17/2013 10:50:00 05/17/2013 23:59:59 CLS Outpatient PITT DOMAYNOR [id number] 2013 15:21:00 2013 23:59:59 CLS Outpatient PITT DOMAYNOR [id number] 08/26/2012 10:19:00 08/26/2012 23:59:59 CLS Outpatient MELISA ANGELA MD [id number] 06/07/2012 10:23:00 06/07/2012 23:59:59 CLS Outpatient [place] [id number] 05/09/2012 10:47:00 05/09/2012 23:59:59 CLS Outpatient MELISA ANGELA MD [id number] 03/09/2013 15:23:00 Document Registration [id number] 12/21/2012 13:41:00 Document Registration [id number] 12/15/2012 15:24:00 Document Registration
[2018-12-08] MEDS ORDERED: ACETAMINOPHEN 500 MG TAB (TYLENOL) PO ONE (19:45)
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
[2018-12-08 20:45] VITALS: BP 168/90
[2018-12-08] MEDS ORDERED: RX-HYDROCODONE/APAP 5/325 MG #4 TAB PK PO PRN (20:45)
== END 2018-12-08 20:45 | disposition home or self-care (01) ==
LOC: EDUNIT# 19:12 → ER 19:13
DX: S09.90XA Unspecified injury of head, initial encounter (principal); S90.02XA Contusion of left ankle, initial encounter; S80.02XA Contusion of left knee, initial encounter; G40.909 Epilepsy, unspecified, not intractable, without status epilepticus; F32.9 Major depressive disorder, single episode, unspecified; F10.20 Alcohol dependence, uncomplicated; R40.2142 Coma scale, eyes open, spontaneous, at arrival to emergency department; R40.2252 Coma scale, best verbal response, oriented, at arrival to emergency department; R40.2362 Coma scale, best motor response, obeys commands, at arrival to emergency department; Z98.51 Tubal ligation status; Z90.89 Acquired absence of other organs; Z88.5 Allergy status to narcotic agent; Z88.0 Allergy status to penicillin; Y04.8XXA Assault by other bodily force, initial encounter
CPT/HCPCS: 70450; 73562; 73610

== ENCOUNTER 2019-10-09 21:30 | Emergency (ER) | payer SELFPAY ==
[~2019-10-09] VITALS: Ht 165 cm; Wt 58.9 kg
[2019-10-09] MEDS ORDERED: ACETAMINOPHEN 500 MG TAB (TYLENOL) ONE (21:42)
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
[2019-10-09 21:58] LABS: BASOPHILS % (AUTO) 0 % (0-10); EOSINOPHILS # (AUTO) 0.1 10^3/uL (0.0-0.3); EOSINOPHILS % (AUTO) 1 % (0-10); HEMATOCRIT 45 % (35-52); HEMOGLOBIN 15.4 G/DL (11.5-16.0); LYMPHOCYTES # (AUTO) 1.1 X 10^3 (1.0-4.0); LYMPHOCYTES % (AUTO) 14 % (12-44); MEAN CORPUSCULAR HEMOGLOBIN 32 PG (25-34); MEAN CORPUSCULAR HGB CONC 34 G/DL (32-36); MEAN CORPUSCULAR VOLUME 95 FL (80-99); MEAN PLATELET VOLUME 10.3 FL (7.4-10.4); MONOCYTES # (AUTO) 0.5 X 10^3 (0.0-1.0); MONOCYTES % (AUTO) 6 % (0-12); NEUTROPHILS # (AUTO) 6.4 X 10^3 (1.8-7.8); NEUTROPHILS % (AUTO) 79 % (42-75); PLATELET COUNT 181 10^3/uL (130-400); RED CELL DISTRIBUTION WIDTH 14.8 % (10.0-14.5); WHITE BLOOD COUNT 8.1 10^3/uL (4.3-11.0)
[2019-10-09] MEDS ORDERED: ACETAMINOPHEN 500 MG TAB (TYLENOL) PO ONE (22:00)
[2019-10-09 22:09] LABS: ALANINE AMINOTRANSFERASE 43 U/L (0-55); ALBUMIN 3.8 GM/DL (3.2-4.5); ALKALINE PHOSPHATASE 80 U/L (40-136); BILIRUBIN,TOTAL 0.5 MG/DL (0.1-1.0); BUN/CREATININE RATIO 7; CALCIUM 8.1 MG/DL (8.5-10.1); CARBON DIOXIDE 20 MMOL/L (21-32); CHLORIDE 103 MMOL/L (98-107); CREATININE SERUM 0.68 MG/DL (0.60-1.30); GFR ESTIMATED > 60; GLUCOSE 87 MG/DL (70-105); POTASSIUM 4.2 MMOL/L (3.6-5.0); SODIUM 137 MMOL/L (135-145); TOTAL PROTEIN 6.3 GM/DL (6.4-8.2)
[2019-10-09 22:51] VITALS: BP 124/78
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
== END 2019-10-09 22:55 | disposition home or self-care (01) ==
LOC: EDUNIT# 21:30 → ER 21:31
DX: S00.83XA Contusion of other part of head, initial encounter (principal); S80.211A Abrasion, right knee, initial encounter; S80.212A Abrasion, left knee, initial encounter; S50.812A Abrasion of left forearm, initial encounter; R40.2142 Coma scale, eyes open, spontaneous, at arrival to emergency department; R40.2252 Coma scale, best verbal response, oriented, at arrival to emergency department; R40.2362 Coma scale, best motor response, obeys commands, at arrival to emergency department; Z88.5 Allergy status to narcotic agent; Z88.0 Allergy status to penicillin; Y08.89XA Assault by other specified means, initial encounter
CPT/HCPCS: 36415; 70450; 70486; 71045; 72125; 80053; 84703; 85025

== ENCOUNTER 2020-01-13 17:41 | Emergency (ER) | payer SELFPAY ==
[~2020-01-13] VITALS: Ht 162 cm; Wt 50.8 kg
--- OUTSIDE RECORDS SUMMARY | 2020-01-13 17:47 | XMS REPORT ---
Author Author nIa DEJESUS [address] Address [address] [place] [address] Care Team Providers Care Vice President Of Talent Acquisition Name Role Phone SANDY DEJESUS Unavailable PROBLEMS Type Condition ICD9-CM Code SYX60-GB Code Onset Dates Condition S tatus SNOMED Code Problem ETOH abuse F10.10 Active 76050724 Problem Mild episode of recurrent major depressive disorder F33.0 Active [id number] ALLERGIES No Information ENCOUNTERS Encounter Location Date Diagnosis [facility] [address] [id number] [address] [place] [phone] November, [facility] [address] [id number] [address] [place] [address] November, Injury of left knee, subsequ ent encounter S89.92XD and Injury of left ankle, subsequent encounter S99.912D [facility] [address] [id number] [address] [place] [address] May, [facility] [address] [id number] [address] [place] [address] May, Mild episode of recurrent ma shawna depressive disorder F33.0 ; Elevated blood pressure reading R03.0 ; Screening for hyperlipidemia Z13.220 ; Screening for thyroid disorder Z13.29 ; Screening for diabetes mellitus Z13.1 and History of seizures Z87.898 [facility] [address] [facility] [id number] [place] [id number] Jul, [facility] [address] [facility] [id number] [address] [place] [phone] Oct, [facility] [address] [facility] [id number] [address] [place] [address] Oct, [facility] [address] [facility] [id number] [place] [id number] Sep, [facility] [address] [id number] [address] [place] [address], [place] [address] Sep, [facility] [address] [id number] [address] [place] [address], [place] [address] Aug, [facility] [place] [address] [id number] [place] [id number] Aug, [facility] [address] [id number] [address] [place] [address], [place] [address] Aug, [facility] [address] [id number] [address] [place] [address], [place] [address] Aug, [facility] [place] [address] [id number] [place] [id number] Aug, [facility] [address] [id number] [address] [place] [address], [place] [address] Aug, [facility] [address] [id number] [address] [place] [address], [place] [address] Aug, [facility] [place] [address] [id number] [place] [id number] Jul, [facility] [address] [id number] [address] [place] [address], [place] [address] Jul, [facility] [address] [id number] [address] [place] [address] Jul, [facility] [address] [id number] [address] [place] [address] Jul, [facility] [place] [address] [id number] [place] [id number] Jul, [facility] [address] [id number] [address] [place] [address] Jul, [facility] [address] [id number] [address] [place] [address], [place] [address] Jun, [facility] [address] [id number] [address] [place] [address], [place] [address] Jun, [facility] [address] [id number] [place] [id number] Jun, [facility] [address] [id number] [address] [place] [address], [place] [address] Jun, [facility] [address] [id number] [place] [id number] Jun, [facility] [address] [id number] [address] [place] [address], [place] [address] Jun, [facility] [address] [id number] [address] [place] [address], [place] [address] Jun, [facility] [address] [id number] [address] [place] [address], [place] [address] May, [facility] [address] [id number] [address] [place] [address], [place] [address] May, [facility] [address] [id number] [place] [id number] May, [facility] [address] [id number] [address] [place] [address], [place] [address] May, [facility] [address] [id number] [address] [place] [address] Apr, [facility] [address] [id number] [address] [place] [address], [place] [address] Apr, [facility] [address] [id number] [place] [id number] Apr, [facility] [address] [id number] [address] [place] [address], [place] [address] Apr, [facility] [address] [id number] [address] [place] [address], [place] [address] Mar, [facility] [address] [id number] [address] [place] [address], [place] [address] Mar, [facility] [address] [id number] [address] [place] [address], [place] [address] Mar, [facility] [address] [id number] [facility] [place] [address] Mar, [facility] [place] [address] [id number] [place] [id number] Mar, [facility] [address] [id number] [facility] [place] [address] Mar, [facility] [place] [address] [id number] [place] [id number] Mar, [facility] [address] [id number] [address] [place] [address], [place] [address] Mar, [facility] [address] [id number] [address] [place] [address], [place] [address] Feb, [facility] [address] [id number] [address] [place] [address], [place] [address] Feb, [facility] [address] [id number] [address] [place] [address], [place] [address] Feb, [facility] [address] [id number] [address] [place] [address], [place] [address] Feb, [facility] [address] [id number] [address] [place] [address], [place] [address] Feb, [facility] [address] [id number] [address] [place] [address], [place] [address] Feb, [facility] [place] [address] [id number] [place] [id number] Feb, [facility] [address] [id number] [address] [place] [address], [place] [address] Feb, [facility] [address] [id number] [address] [place] [address], [place] [address] Jan, [facility] [address] [id number] [facility] [place] [address] Jan, [facility] [place] [address] [id number] [place] [id number] Jan, [facility] [address] [id number] [address] [place] [address], [place] [address] Jan, [facility] [address] [id number] [address] [place] [address], [place] [address] Dec, [facility] [place] [address] [id number] [place] [id number] Dec, [facility] [place] [address] [id number] [place] [id number] November, [facility] [address] [id number] [address] [place] [address], [place] [address] November, [facility] [place] [address] [id number] [place] [id number] November, [facility] [address] [id number] [address] [place] [address], [place] [address] November, [facility] [address] [id number] [address] [place] [address], [place] [address] Oct, [facility] [place] [address] [id number] [place] [id number] Oct, [facility] [place] [address] [id number] [place] [id number] Oct, [facility] [address] [id number] [address] [place] [address], [place] [address] Oct, [facility] [place] [address] [id number] [place] [id number] Oct, [facility] [address] [id number] [address] [place] [address], [place] [address] Oct, [facility] [place] [address] [id number] [place] [id number] Oct, [facility] [address] [id number] [address] [place] [address], [place] [address] Oct, [facility] [address] [id number] [address] [place] [address], [place] [address] Oct, [facility] [place] [address] [id number] [place] [id number] Oct, [facility] [address] [id number] [address] [place] [address] Oct, [facility] [place] [address] [id number] [place] [id number] Oct, [facility] [place] [address] [id number] [place] [id number] Sep, [facility] [address] [id number] [address] [place] [address], [place] [address] Sep, [facility] [address] [id number] [address] [place] [address], [place] [address] Sep, [facility] [place] [address] [id number] [place] [id number] Sep, [facility] [place] [address] [id number] [place] [id number] Sep, [facility] [address] [id number] [address] [place] [address] Sep, [facility] [place] [address] [id number] [place] [id number] Aug, [facility] [address] [facility] [id number] [address] [place] [address] Aug, [facility] [place] [address] [id number] [place] [id number] Aug, [facility] [address] [id number] [address] [place] [address] Aug, [facility] [address] [facility] [id number] [address] [place] [address] Aug, [facility] [address] [facility] [id number] [address] [place] [address] Aug, [facility] [place] [address] [id number] [place] [id number] Jul, [facility] [address] [facility] [id number] [address] [place] [address] Jul, [facility] [place] [address] [id number] [place] [id number] Jun, [facility] [address] [id number] [address] [place] [address] Jun, [facility] [place] [address] [id number] [place] [id number] May, [facility] [address] [id number] [address] [place] [address] May, [facility] [place] [address] [id number] [place] [id number] Apr, [facility] [address] [id number] [address] [place] [address] Apr, [facility] [place] [address] [id number] [place] [id number] Mar, [facility] [address] [facility] [id number] [address] [place] [address] Feb, [facility] [place] [address] [id number] [place] [id number] Feb, [facility] [place] [address] [id number] [place] [id number] Feb, [facility] [place] [address] [id number] [place] [id number] Feb, [facility] [address] [id number] [address] [place] [address] Jan, [facility] [place] [address] [id number] [place] [id number] Jan, [facility] [place] [address] [id number] [place] [id number] Jan, [facility] [address] [id number] [address] [place] [address] Jan, [facility] [place] [address] [id number] [place] [id number] November, [facility] [place] [address] [id number] [place] [id number] November, [facility] [address] [id number] [address] [place] [address] November, [facility] [place] [address] [id number] [place] [id number] November, [facility] [place] [address] [id number] [place] [id number] Oct, [facility] [place] [address] [id number] [place] [id number] Oct, [facility] [place] [address] [id number] [place] [id number] Sep, [facility] [place] [address] [id number] [place] [id number] Sep, [facility] [place] [address] [id number] [place] [id number] Aug, [facility] [place] [address] [id number] [place] [id number] Jul, [facility] [place] [address] [id number] [place] [id number] Jun, [facility] [address] [facility] [id number] [address] [place] [address] Jun, [facility] [address] [facility] [id number] [address] [place] [address] May, [facility] [address] [facility] [id number] [address] [place] [address] May, [facility] [place] [address] [id number] [place] [id number] May, [facility] [place] [address] [id number] [place] [id number] May, [facility] [address] [facility] [id number] [address] [place] [address] May, [facility] [address] [facility] [id number] [address] [place] [address] May, [facility] [place] [address] [id number] [place] [id number] May, [facility] [address] [id number] [address] [place] [address] May, [facility] [place] [address] [id number] [place] [id number] May, [facility] [address] [id number] [address] [place] [address] May, [facility] [place] [address] [id number] [place] [id number] May, [facility] [address] [id number] [address] [place] [address] May, [facility] [place] [address] [id number] [place] [id number] May, [facility] [address] [facility] [id number] [address] [place] [address] May, [facility] [address] [id number] [address] [place] [address] Apr, [facility] [address] [id number] [address] [place] [address] Apr, [facility] [address] [facility] [id number] [address] [place] [address] Apr, [facility] [address] [facility] [id number] [address] [place] [address] Apr, [facility] [place] [address] [id number] [place] [id number] Apr, [facility] [address] [id number] [address] [place] [address] Apr, [facility] [place] [address] [id number] [place] [id number] Apr, [facility] [place] [address] [id number] [place] [id number] Mar, [facility] [place] [address] [id number] [place] [id number] Mar, [facility] [place] [address] [id number] [place] [id number] Feb, [facility] [place] [address] [id number] [place] [id number] Jan, [facility] [place] [address] [id number] [place] [id number] Dec, [facility] [place] [address] [id number] [place] [id number] Dec, [facility] [place] [address] [id number] [place] [id number] November, [facility] [place] [address] [id number] [place] [id number] November, [facility] [place] [address] [id number] [place] [id number] November, [facility] [address] [facility] [id number] [address] [place] [address] November, [facility] [place] [address] [id number] [place] [id number] November, [facility] [place] [address] [id number] [place] [id number] November, [facility] [place] [address] [id number] [place] [id number] November, [facility] [place] [address] [id number] [place] [id number] Oct, [facility] [place] [address] [id number] [place] [id number] Oct, [facility] [place] [address] [id number] [place] [id number] Oct, [facility] [place] [address] [id number] [place] [id number] Oct, [facility] [place] [address] [id number] [place] [id number] Oct, [facility] [address] [facility] [id number] [address] [place] [address] Oct, [facility] [place] [address] [id number] [place] [id number] Oct, [facility] [place] [address] [id number] [place] [id number] Oct, [facility] [place] [address] [id number] [place] [id number] Sep, [facility] [place] [address] [id number] [place] [id number] Aug, [facility] [place] [address] [id number] [place] [id number] Aug, [facility] [place] [address] [id number] [place] [id number] Jul, [facility] [place] [address] [id number] [place] [id number] Jul, [facility] [address] [facility] [id number] [address] [place] [address] Jul, [facility] [place] [address] [id number] [place] [id number] Jul, [facility] [address] [facility] [id number] [address] [place] [address] Jun, [facility] [address] [facility] [id number] [address] [place] [phone] Jun, [facility] [address] [facility] [id number] [address] [place] [address] May, [facility] [address] [facility] [id number] [address] [place] [address] Apr, [facility] [address] [facility] [id number] [address] [place] [address] Apr, [facility] [address] [facility] [id number] [address] [place] [address] Jan, [facility] [address] [facility] [id number] [address] [place] [address] Dec, [facility] [address] [facility] [id number] [address] [place] [address] Aug, [facility] [address] [id number] [address] [place] [address], [place] [address] 23 Jun, 2010 [facility] [address] [id number] [address] [place] [address], [place] [address] Jun, [facility] [address] [id number] [address] [place] [address], [place] [address] Jun, [facility] [address] [id number] [address] [place] [address], [place] [address] Jun, [facility] [address] [id number] [address] [place] [address], [place] [address] Jun, [facility] [address] [id number] [address] [place] [address], [place] [address] 15 May, 2010 [facility] [address] [id number] [address] [place] [address], [place] [address] 05 May, 2010 [facility] [address] [id number] [address] [place] [address], [place] [address] May, [facility] [address] [id number] [address] [place] [address], [place] [address] 18 Apr, 2010 [facility] [address] [id number] [address] [place] [address], [place] [address] 12 Apr, 2010 [facility] [address] [id number] [address] [place] [address], [place] [address] Apr, [facility] [address] [id number] [address] [place] [address], [place] [address] 11 Apr, 2010 [facility] [address] [id number] [address] [place] [address], [place] [address] 10 Mar, 2010 [facility] [address] [id number] [address] [place] [address], [place] [address] 17 Jun, 2009 [facility] [address] [id number] [address] [place] [address], [place] [address] 14 Jun, 2009 [facility] [address] [id number] [address] [place] [address], [place] [address] Jun, IMMUNIZATIONS No Known Immunizations SOCIAL HISTORY Never Assessed REASON FOR VISIT PLAN OF CARE VITAL SIGNS Height 63 in 2013-06-15 Weight 137.4 lbs 2013-06-15 Temperature 97.6 degrees Fahrenheit 2013-06-15 Heart Rate 100 bpm 2013-06-15 Respiratory Rate 20 2013-06-15 Blood pressure systolic 128 mmHg 2013-06-15 Blood pressure diastolic 60 mmHg 2013-06-15 MEDICATIONS Unknown Medications RESULTS No Results PROCEDURES No Known procedures INSTRUCTIONS MEDICATIONS ADMINISTERED No Known Medications MEDICAL (GENERAL) HISTORY Type Description Date Medical History anxiety Medical History depression Medical History epilepsy Medical History Attention deficit hyperactiv ity disorder (ADHD), unspecified ADHD type Medical History Bipolar I disorder, most rec ent episode (or current) manic, unspecified Medical History Attention deficit disorder o f childhood without mention of hyperactivity Medical History Unspecified epilepsy without mention of intractable epilepsy Medical History Cyst of Bartholin''''''''s gland Medical History Unilateral or unspecified fe moral hernia without mention of obstruction or gangrene, unilateral or unspecified Medical History Papanicolaou smear of cervix with atypical squamous cells of undetermined significance (ASC-US) Medical History Counseling for marital and partner probl ems, unspecified Surgical History bilateral tubal ligation (BTL) Surgical History tonsillectomy Hospitalization History seizures
--- OUTSIDE RECORDS SUMMARY | 2020-01-13 17:47 | XMS REPORT ---
Author Author Ina DEJESUS [address] Address [address] [place] [address] Care Team Providers Care Environmental Geologist Name Role Phone SANDY DEJESUS Unavailable PROBLEMS Type Condition ICD9-CM Code QZU34-XA Code Onset Dates Condition S tatus SNOMED Code Problem ETOH abuse F10.10 Active 38833247 Problem Mild episode of recurrent major depressive disorder F33.0 Active [id number] ALLERGIES No Information ENCOUNTERS Encounter Location Date Diagnosis [facility] [address] [id number] [address] [place] [address] November, [facility] [address] [id number] [address] [place] [address] November, Injury of left knee, subsequ ent encounter S89.92XD and Injury of left ankle, subsequent encounter S99.912D [facility] [address] [id number] [address] [place] [address] May, [facility] [address] [id number] [address] [place] [address] May, Mild episode of recurrent ma shawna depressive disorder F33.0 ; Elevated blood pressure reading R03.0 ; Screening for hyperlipidemia Z13.220 ; Screening for thyroid disorder Z13.29 ; Screening for diabetes mellitus Z13.1 and History of seizures Z87.898 [facility] [address] [facility] [id number] [place] [id number] Jul, [facility] [address] [facility] [id number] [address] [place] [address] Oct, [facility] [address] [facility] [id number] [address] [place] [address] Oct, [facility] [address] [facility] [id number] [place] [id number] Sep, [facility] [address] [id number] [address] [place] [address], [place] [address] Sep, [facility] [address] [id number] [address] [place] [address], [place] [address] Aug, [facility] [place] [address] [id number] [place] [id number] Aug, [facility] [address] [id number] [address] [place] [address], [place] [address] Aug, [facility] [address] [id number] [address] [place] [address], [place] [address] Aug, [facility] [place] [address] [id number] [place] [id number] Aug, [facility] [address] [id number] [address] [place] [address], [place] [address] Aug, [facility] [address] [id number] [address] [place] [address], [place] [address] Aug, [facility] [place] [address] [id number] [place] [id number] Jul, [facility] [address] [id number] [address] [place] [address], [place] [address] Jul, [facility] [address] [id number] [address] [place] [address] Jul, [facility] [address] [id number] [address] [place] [address] Jul, [facility] [place] [address] [id number] [place] [id number] Jul, [facility] [address] [id number] [address] [place] [address] Jul, [facility] [address] [id number] [address] [place] [address], [place] [address] Jun, [facility] [address] [id number] [address] [place] [address], [place] [address] Jun, [facility] [address] [id number] [place] [id number] Jun, [facility] [address] [id number] [address] [place] [address], [place] [address] Jun, [facility] [address] [id number] [place] [id number] Jun, [facility] [address] [id number] [address] [place] [address], [place] [address] Jun, [facility] [address] [id number] [address] [place] [address], [place] [address] Jun, [facility] [address] [id number] [address] [place] [address], [place] [address] May, [facility] [address] [id number] [address] [place] [address], [place] [address] May, [facility] [address] [id number] [place] [id number] May, [facility] [address] [id number] [address] [place] [address], [place] [address] May, [facility] [address] [id number] [address] [place] [address] Apr, [facility] [address] [id number] [address] [place] [address], [place] [address] Apr, [facility] [address] [id number] [place] [id number] Apr, [facility] [address] [id number] [address] [place] [address], [place] [address] Apr, [facility] [address] [id number] [address] [place] [address], [place] [address] Mar, [facility] [address] [id number] [address] [place] [address], [place] [address] Mar, [facility] [address] [id number] [address] [place] [address], [place] [address] Mar, [facility] [address] [id number] [facility] [place] [address] Mar, [facility] [place] [address] [id number] [place] [id number] Mar, [facility] [address] [id number] [facility] [place] [address] Mar, [facility] [place] [address] [id number] [place] [id number] Mar, [facility] [address] [id number] [address] [place] [address], [place] [address] Mar, [facility] [address] [id number] [address] [place] [address], [place] [address] Feb, [facility] [address] [id number] [address] [place] [address], [place] [address] Feb, [facility] [address] [id number] [address] [place] [address], [place] [address] Feb, [facility] [address] [id number] [address] [place] [address], [place] [address] Feb, [facility] [address] [id number] [address] [place] [address], [place] [address] Feb, [facility] [address] [id number] [address] [place] [address], [place] [address] Feb, [facility] [place] [address] [id number] [place] [id number] Feb, [facility] [address] [id number] [address] [place] [address], [place] [address] Feb, [facility] [address] [id number] [address] [place] [address], [place] [address] Jan, [facility] [address] [id number] [facility] [place] [address] Jan, [facility] [place] [address] [id number] [place] [id number] Jan, [facility] [address] [id number] [address] [place] [address], [place] [address] Jan, [facility] [address] [id number] [address] [place] [address], [place] [address] Dec, [facility] [place] [address] [id number] [place] [id number] Dec, [facility] [place] [address] [id number] [place] [id number] November, [facility] [address] [id number] [address] [place] [address], [place] [address] November, [facility] [place] [address] [id number] [place] [id number] November, [facility] [address] [id number] [address] [place] [address], [place] [address] November, [facility] [address] [id number] [address] [place] [address], [place] [address] Oct, [facility] [place] [address] [id number] [place] [id number] Oct, [facility] [place] [address] [id number] [place] [id number] Oct, [facility] [address] [id number] [address] [place] [address], [place] [address] Oct, [facility] [place] [address] [id number] [place] [id number] Oct, [facility] [address] [id number] [address] [place] [address], [place] [address] Oct, [facility] [place] [address] [id number] [place] [id number] Oct, [facility] [address] [id number] [address] [place] [address], [place] [address] Oct, [facility] [address] [id number] [address] [place] [address], [place] [address] Oct, [facility] [place] [address] [id number] [place] [id number] Oct, [facility] [address] [id number] [address] [place] [address] Oct, [facility] [place] [address] [id number] [place] [id number] Oct, [facility] [place] [address] [id number] [place] [id number] Sep, [facility] [address] [id number] [address] [place] [address], [place] [address] Sep, [facility] [address] [id number] [address] [place] [address], [place] [address] Sep, [facility] [place] [address] [id number] [place] [id number] Sep, [facility] [place] [address] [id number] [place] [id number] Sep, [facility] [address] [id number] [address] [place] [address] Sep, [facility] [place] [address] [id number] [place] [id number] Aug, [facility] [address] [facility] [id number] [address] [place] [address] Aug, [facility] [place] [address] [id number] [place] [id number] Aug, [facility] [address] [id number] [address] [place] [address] Aug, [facility] [address] [facility] [id number] [address] [place] [address] Aug, [facility] [address] [facility] [id number] [address] [place] [address] Aug, [facility] [place] [address] [id number] [place] [id number] Jul, [facility] [address] [facility] [id number] [address] [place] [address] Jul, [facility] [place] [address] [id number] [place] [id number] Jun, [facility] [address] [id number] [address] [place] [address] Jun, [facility] [place] [address] [id number] [place] [id number] May, [facility] [address] [id number] [address] [place] [address] May, [facility] [place] [address] [id number] [place] [id number] Apr, [facility] [address] [id number] [address] [place] [address] Apr, [facility] [place] [address] [id number] [place] [id number] Mar, [facility] [address] [facility] [id number] [address] [place] [address] Feb, [facility] [place] [address] [id number] [place] [id number] Feb, [facility] [place] [address] [id number] [place] [id number] Feb, [facility] [place] [address] [id number] [place] [id number] Feb, [facility] [address] [id number] [address] [place] [address] Jan, [facility] [place] [address] [id number] [place] [id number] Jan, [facility] [place] [address] [id number] [place] [id number] Jan, [facility] [address] [id number] [address] [place] [address] Jan, [facility] [place] [address] [id number] [place] [id number] November, [facility] [place] [address] [id number] [place] [id number] November, [facility] [address] [id number] [address] [place] [address] November, [facility] [place] [address] [id number] [place] [id number] November, [facility] [place] [address] [id number] [place] [id number] Oct, [facility] [place] [address] [id number] [place] [id number] Oct, [facility] [place] [address] [id number] [place] [id number] Sep, [facility] [place] [address] [id number] [place] [id number] Sep, [facility] [place] [address] [id number] [place] [id number] Aug, [facility] [place] [address] [id number] [place] [id number] Jul, [facility] [place] [address] [id number] [place] [id number] Jun, [facility] [address] [facility] [id number] [address] [place] [address] Jun, [facility] [address] [facility] [id number] [address] [place] [address] May, [facility] [address] [facility] [id number] [address] [place] [address] May, [facility] [place] [address] [id number] [place] [id number] May, [facility] [place] [address] [id number] [place] [id number] May, [facility] [address] [facility] [id number] [address] [place] [address] May, [facility] [address] [facility] [id number] [address] [place] [address] May, [facility] [place] [address] [id number] [place] [id number] May, [facility] [address] [id number] [address] [place] [address] May, [facility] [place] [address] [id number] [place] [id number] May, [facility] [address] [id number] [address] [place] [address] May, [facility] [place] [address] [id number] [place] [id number] May, [facility] [address] [id number] [address] [place] [address] May, [facility] [place] [address] [id number] [place] [id number] May, [facility] [address] [facility] [id number] [address] [place] [address] May, [facility] [address] [id number] [address] [place] [address] Apr, [facility] [address] [id number] [address] [place] [address] Apr, [facility] [address] [facility] [id number] [address] [place] [address] Apr, [facility] [address] [facility] [id number] [address] [place] [address] Apr, [facility] [place] [address] [id number] [place] [id number] Apr, [facility] [address] [id number] [address] [place] [address] Apr, [facility] [place] [address] [id number] [place] [id number] Apr, [facility] [place] [address] [id number] [place] [id number] Mar, [facility] [place] [address] [id number] [place] [id number] Mar, [facility] [place] [address] [id number] [place] [id number] Feb, [facility] [place] [address] [id number] [place] [id number] Jan, [facility] [place] [address] [id number] [place] [id number] Dec, [facility] [place] [address] [id number] [place] [id number] Dec, [facility] [place] [address] [id number] [place] [id number] November, [facility] [place] [address] [id number] [place] [id number] November, [facility] [place] [address] [id number] [place] [id number] November, [facility] [address] [facility] [id number] [address] [place] [address] November, [facility] [place] [address] [id number] [place] [id number] November, [facility] [place] [address] [id number] [place] [id number] November, [facility] [place] [address] [id number] [place] [id number] November, [facility] [place] [address] [id number] [place] [id number] Oct, [facility] [place] [address] [id number] [place] [id number] Oct, [facility] [place] [address] [id number] [place] [id number] Oct, [facility] [place] [address] [id number] [place] [id number] Oct, [facility] [place] [address] [id number] [place] [id number] Oct, [facility] [address] [facility] [id number] [address] [place] [address] Oct, [facility] [place] [address] [id number] [place] [id number] Oct, [facility] [place] [address] [id number] [place] [id number] Oct, [facility] [place] [address] [id number] [place] [id number] Sep, [facility] [place] [address] [id number] [place] [id number] Aug, [facility] [place] [address] [id number] [place] [id number] Aug, [facility] [place] [address] [id number] [place] [id number] Jul, [facility] [place] [address] [id number] [place] [id number] Jul, [facility] [address] [facility] [id number] [address] [place] [address] Jul, [facility] [place] [address] [id number] [place] [id number] Jul, [facility] [address] [facility] [id number] [address] [place] [address] Jun, [facility] [address] [facility] [id number] [address] [place] [address] Jun, [facility] [address] [facility] [id number] [address] [place] [address] May, [facility] [address] [facility] [id number] [address] [place] [address] Apr, [facility] [address] [facility] [id number] [address] [place] [address] Apr, [facility] [address] [facility] [id number] [address] [place] [address] Jan, [facility] [address] [facility] [id number] [address] [place] [address] Dec, [facility] [address] [facility] [id number] [address] [place] [address] Aug, [facility] [address] [id number] [address] [place] [address], [place] [address] 23 Jun, 2010 [facility] [address] [id number] [address] [place] [address], [place] [address] Jun, [facility] [address] [id number] [address] [place] [address], [place] [address] Jun, [facility] [address] [id number] [address] [place] [address], [place] [address] Jun, [facility] [address] [id number] [address] [place] [address], [place] [address] Jun, [facility] [address] [id number] [address] [place] [address], [place] [address] 15 May, 2010 [facility] [address] [id number] [address] [place] [address], [place] [address] 05 May, 2010 [facility] [address] [id number] [address] [place] [address], [place] [address] May, [facility] [address] [id number] [address] [place] [address], [place] [address] 18 Apr, 2010 [facility] [address] [id number] [address] [place] [address], [place] [address] 12 Apr, 2010 [facility] [address] [id number] [address] [place] [address], [place] [address] Apr, [facility] [address] [id number] [address] [place] [address], [place] [address] 11 Apr, 2010 [facility] [address] [id number] [address] [place] [address], [place] [address] 10 Mar, 2010 [facility] [address] [id number] [address] [place] [address], [place] [address] 17 Jun, 2009 [facility] [address] [id number] [address] [place] [address], [place] [address] 14 Jun, 2009 [facility] [address] [id number] [address] [place] [address], [place] [address] Jun, IMMUNIZATIONS No Known Immunizations SOCIAL HISTORY Never Assessed REASON FOR VISIT PLAN OF CARE VITAL SIGNS Height 63 in 2013-05-17 Weight 143 lbs 2013-05-17 Temperature 97.7 degrees Fahrenheit 2013-05-17 Heart Rate 76 bpm 2013-05-17 Respiratory Rate 16 2013-05-17 Blood pressure systolic 128 mmHg 2013-05-17 Blood pressure diastolic 82 mmHg 2013-05-17 MEDICATIONS Unknown Medications RESULTS No Results PROCEDURES [...]
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
--- OUTSIDE RECORDS SUMMARY | 2020-01-13 17:48 | XMS REPORT ---
Author Author Elba Ina [facility] Organization [facility] Address [address], [place] [id number] Care Team Providers Care Fabric Inspector Name Role Phone Elba [facility] Unavailable PROBLEMS Type Condition ICD9-CM Code HSW82-CT Code Onset Dates Condition S tatus SNOMED Code Problem ETOH abuse F10.10 Active 54051718 Problem Mild episode of recurrent major depressive disorder F33.0 Active [id number] ALLERGIES No Information ENCOUNTERS Encounter Location Date Diagnosis [facility] [address] [id number] [address] [place] [address] November, [facility] [address] [address] November, Injury of left knee, subsequ ent encounter S89.92XD and Injury of left ankle, subsequent encounter S99.912D [facility] [address] [address] May, [facility] [address] [id number] [address] [place] [address] May, Mild episode of recurrent ma shawna depressive disorder F33.0 ; Elevated blood pressure reading R03.0 ; Screening for hyperlipidemia Z13.220 ; Screening for thyroid disorder Z13.29 ; Screening for diabetes mellitus Z13.1 and History of seizures Z87.898 [facility] [address] [id number] [id number] Jul, [facility] [address] [id number] [address] [place] [address] Oct, [facility] [address] [id number] [address] [place] [address] Oct, [facility] [address] [id number] [id number] Sep, [facility] [address] [id number] [address] [place] [address], [place] [address] Sep, [facility] [address] [id number] [address] [place] [address], [place] [address] Aug, [facility] [place] [address] [id number] [place] [id number] Aug, [facility] [address] [id number] [address] [place] [address], [place] [address] Aug, [facility] [address] [id number] [address] [place] [address], [place] [address] Aug, [facility] [place] [address] [id number] [place] [id number] Aug, [facility] [address] [id number] [address] [place] [address], [place] [address] Aug, [facility] [address] [id number] [address] [place] [address], [place] [address] Aug, [facility] [place] [address] [id number] [place] [id number] Jul, [facility] [address] [id number] [address] [place] [address], [place] [address] Jul, [facility] [address] [id number] [address] [place] [address], [place] [address] Jul, [facility] [address] [id number] [address] [place] [address], [place] [address] Jul, [facility] [place] [address] [id number] [place] [id number] Jul, [facility] [address] [id number] [address] [place] [address], [place] [address] Jul, [facility] [address] [id number] [address] [place] [address], [place] [address] Jun, [facility] [address] [id number] [address] [place] [address], [place] [address] Jun, [facility] [place] [address] [id number] [place] [id number] Jun, [facility] [address] [id number] [facility] [place] [address] Jun, [facility] [place] [address] [id number] [place] [id number] Jun, [facility] [address] [id number] [address] [place] [address], [place] [address] Jun, [facility] [address] [id number] [address] [place] [address], [place] [address] Jun, [facility] [address] [id number] [address] [place] [address], [place] [address] May, [facility] [address] [id number] [address] [place] [address], [place] [address] May, [facility] [place] [address] [id number] [place] [id number] May, [facility] [address] [id number] [address] [place] [address], [place] [address] May, [facility] [address] [id number] [address] [place] [address], [place] [address] Apr, [facility] [address] [id number] [address] [place] [address], [place] [address] Apr, [facility] [place] [address] [id number] [place] [id number] Apr, [facility] [address] [id number] [address] [place] [address], [place] [address] Apr, [facility] [address] [id number] [address] [place] [address], [place] [address] Mar, [facility] [address] [id number] [address] [place] [address], [place] [address] Mar, [facility] [address] [id number] [facility] [place] [address] Mar, [facility] [address] [id number] [facility] [place] [address] Mar, [facility] [place] [address] [id number] [place] [id number] Mar, [facility] [address] [id number] [facility] [place] [address] Mar, [facility] [place] [address] [id number] [place] [id number] Mar, [facility] [address] [id number] [address] [place] [address], [place] [address] Mar, [facility] [address] [id number] [address] [place] [address], [place] [address] Feb, [facility] [address] [id number] [address] [place] [address], [place] [address] Feb, [facility] [address] [id number] [address] [place] [address], [place] [address] Feb, [facility] [address] [id number] [address] [place] [address], [place] [address] Feb, [facility] [address] [id number] [address] [place] [address], [place] [address] Feb, [facility] [address] [id number] [address] [place] [address], [place] [address] Feb, [facility] [place] [address] [id number] [place] [id number] Feb, [facility] [address] [id number] [address] [place] [address], [place] [address] Feb, [facility] [address] [id number] [address] [place] [address], [place] [address] Jan, [facility] [address] [id number] [facility] [place] [address] Jan, [facility] [place] [address] [id number] [place] [id number] Jan, [facility] [address] [id number] [address] [place] [address], [place] [address] Jan, [facility] [address] [id number] [address] [place] [address], [place] [address] Dec, [facility] [place] [address] [id number] [place] [id number] Dec, [facility] [place] [address] [id number] [place] [id number] November, [facility] [address] [id number] [address] [place] [address], [place] [address] November, [facility] [place] [address] [id number] [place] [id number] November, [facility] [address] [id number] [address] [place] [address], [place] [address] November, [facility] [address] [id number] [address] [place] [address], [place] [address] Oct, [facility] [place] [address] [id number] [place] [id number] Oct, [facility] [place] [address] [id number] [place] [id number] Oct, [facility] [address] [id number] [address] [place] [address], [place] [address] Oct, [facility] [place] [address] [id number] [place] [id number] Oct, [facility] [address] [id number] [address] [place] [address], [place] [address] Oct, [facility] [place] [address] [id number] [place] [id number] Oct, [facility] [address] [id number] [address] [place] [address], [place] [address] Oct, [facility] [address] [id number] [address] [place] [address], [place] [address] Oct, [facility] [place] [address] [id number] [place] [id number] Oct, [facility] [address] [id number] [address] [place] [address], [place] [address] Oct, [facility] [place] [address] [id number] [place] [id number] Oct, [facility] [place] [address] [id number] [place] [id number] Sep, [facility] [address] [id number] [address] [place] [address], [place] [address] Sep, [facility] [address] [id number] [address] [place] [address], [place] [address] Sep, [facility] [place] [address] [id number] [place] [id number] Sep, [facility] [place] [address] [id number] [place] [id number] Sep, [facility] [address] [facility] [id number] [address] [place] [address] Sep, [facility] [place] [address] [id number] [place] [id number] Aug, [facility] [address] [facility] [id number] [address] [place] [address] Aug, [facility] [place] [address] [id number] [place] [id number] Aug, [facility] [address] [id number] [address] [place] [address] Aug, [facility] [address] [facility] [id number] [address] [place] [address] Aug, [facility] [address] [facility] [id number] [address] [place] [address] Aug, [facility] [place] [address] [id number] [place] [id number] Jul, [facility] [address] [id number] [address] [place] [address] Jul, [facility] [place] [address] [id number] [place] [id number] Jun, [facility] [address] [facility] [id number] [address] [place] [address] Jun, [facility] [place] [address] [id number] [place] [id number] May, [facility] [address] [facility] [id number] [address] [place] [address] May, [facility] [place] [address] [id number] [place] [id number] Apr, [facility] [address] [id number] [address] [place] [address] Apr, [facility] [place] [address] [id number] [place] [id number] Mar, [facility] [address] [facility] [id number] [address] [place] [address] Feb, [facility] [place] [address] [id number] [place] [id number] Feb, [facility] [place] [address] [id number] [place] [id number] Feb, [facility] [place] [address] [id number] [place] [id number] Feb, [facility] [address] [id number] [address] [place] [address] Jan, [facility] [place] [address] [id number] [place] [id number] Jan, [facility] [place] [address] [id number] [place] [id number] Jan, [facility] [address] [facility] [id number] [address] [place] [address] Jan, [facility] [place] [address] [id number] [place] [id number] November, [facility] [place] [address] [id number] [place] [id number] November, [facility] [address] [id number] [address] [place] [address] November, [facility] [place] [address] [id number] [place] [id number] November, [facility] [place] [address] [id number] [place] [id number] Oct, [facility] [place] [address] [id number] [place] [id number] Oct, [facility] [place] [address] [id number] [place] [id number] Sep, [facility] [place] [address] [id number] [place] [id number] Sep, [facility] [place] [address] [id number] [place] [id number] Aug, [facility] [place] [address] [id number] [place] [id number] Jul, [facility] [place] [address] [id number] [place] [id number] Jun, [facility] [address] [facility] [id number] [address] [place] [address] Jun, [facility] [address] [facility] [id number] [address] [place] [address] May, [facility] [address] [facility] [id number] [address] [place] [address] May, [facility] [place] [address] [id number] [place] [id number] May, [facility] [place] [address] [id number] [place] [id number] May, [facility] [address] [facility] [id number] [address] [place] [address] May, [facility] [address] [facility] [id number] [address] [place] [address] May, [facility] [place] [address] [id number] [place] [id number] May, [facility] [address] [id number] [address] [place] [address] May, [facility] [place] [address] [id number] [place] [id number] May, [facility] [address] [id number] [address] [place] [address], [place] [address] May, [facility] [place] [address] [id number] [place] [id number] May, [facility] [address] [id number] [address] [place] [address] May, [facility] [place] [address] [id number] [place] [id number] May, [facility] [address] [facility] [id number] [address] [place] [address] May, [facility] [address] [facility] [id number] [address] [place] [address] Apr, [facility] [address] [facility] [id number] [address] [place] [address] Apr, [facility] [address] [facility] [id number] [address] [place] [address] Apr, [facility] [address] [facility] [id number] [address] [place] [address] Apr, [facility] [place] [address] [id number] [place] [id number] Apr, [facility] [address] [id number] [address] [place] [address] Apr, [facility] [place] [address] [id number] [place] [id number] Apr, [facility] [place] [address] [id number] [place] [id number] Mar, [facility] [place] [address] [id number] [place] [id number] Mar, [facility] [place] [address] [id number] [place] [id number] Feb, [facility] [place] [address] [id number] [place] [id number] Jan, [facility] [place] [address] [id number] [place] [id number] Dec, [facility] [place] [address] [id number] [place] [id number] Dec, [facility] [place] [address] [id number] [place] [id number] November, [facility] [place] [address] [id number] [place] [id number] November, [facility] [place] [address] [id number] [place] [id number] November, [facility] [place] [address] [facility] [id number] [address] [place] [address] November, [facility] [place] [address] [id number] [place] [id number] November, [facility] [place] [address] [id number] [place] [id number] November, [facility] [place] [address] [id number] [place] [id number] November, [facility] [place] [address] [id number] [place] [id number] Oct, [facility] [place] [address] [id number] [place] [id number] Oct, [facility] [place] [address] [id number] [place] [id number] Oct, [facility] [place] [address] [id number] [place] [id number] Oct, [facility] [place] [address] [id number] [place] [id number] Oct, [facility] [place] [address] [facility] [id number] [place] [address] Oct, [facility] [place] [address] [id number] [place] [id number] Oct, [facility] [place] [address] [id number] [place] [id number] Oct, [facility] [place] [address] [id number] [place] [id number] Sep, [facility] [place] [address] [id number] [place] [id number] Aug, [facility] [place] [address] [id number] [place] [id number] Aug, [facility] [place] [address] [id number] [place] [id number] Jul, [facility] [place] [address] [id number] [place] [id number] Jul, [facility] [address] [facility] [id number] [address] [place] [address] Jul, [facility] [place] [address] [id number] [place] [id number] Jul, [facility] [address] [facility] [id number] [address] [place] [address] Jun, [facility] [address] [facility] [id number] [address] [place] [address] Jun, [facility] [address] [facility] [id number] [address] [place] [address] May, [facility] [address] [facility] [id number] [address] [place] [address] Apr, [facility] [address] [facility] [id number] [address] [place] [address] Apr, [facility] [address] [facility] [id number] [address] [place] [id number] Jan, [facility] [address] [facility] [id number] [address] [place] [address] Dec, [facility] [address] [facility] [id number] [address] [place] [address] Aug, [facility] [address] [id number] [address] [place] [address], [place] [address] 23 Jun, 2010 [facility] [address] [id number] [address] [place] [address], [place] [address] Jun, [facility] [address] [id number] [address] [place] [address], [place] [address] Jun, [facility] [address] [id number] [address] [place] [address], [place] [address] Jun, [facility] [address] [id number] [address] [place] [address], [place] [address] Jun, [facility] [address] [id number] [address] [place] [address], [place] [address] 15 May, 2010 [facility] [address] [id number] [address] [place] [address], [place] [address] May, [facility] [address] [id number] [address] [place] [address] May, [facility] [address] [id number] [address] [place] [address], [place] [address] Apr, [facility] [address] [id number] [address] [place] [address] Apr, [facility] [address] [id number] [address] [place] [address] Apr, [facility] [address] [id number] [address] [place] [address] Apr, [facility] [address] [id number] [address] [place] [address] 10 Mar, 2010 [facility] [address] [id number] [address] [place] [id number] 17 Jun, 2009 [facility] [address] [id number] [address] [place] [address] 14 Jun, 2009 [facility] [address] [id number] [address] [place] [address] Jun, IMMUNIZATIONS No Known Immunizations SOCIAL HISTORY Never Assessed REASON FOR VISIT PLAN OF CARE VITAL SIGNS MEDICATIONS Unknown Medications RESULTS No Results PROCEDURES Procedure Date Ordered Result Body Site COMPREHENSIVE CARE MANAGEMENT HAP - OCK May 03, 2014 INSTRUCTIONS MEDICATIONS ADMINISTERED No Known Medications MEDICAL [...]
--- OUTSIDE RECORDS SUMMARY | 2020-01-13 17:48 | XMS REPORT ---
Author Author Ina DEJESUS [address] Address [address] [place] [address] Care Team Providers Care Piercer Name Role Phone SANDY DEJESUS Unavailable PROBLEMS Type Condition ICD9-CM Code [id number] Code Onset Dates Condition S tatus SNOMED Code Problem ETOH abuse F10.10 Active 83515515 Problem Mild episode of recurrent major depressive disorder F33.0 Active [id number] ALLERGIES No Information ENCOUNTERS Encounter Location Date Diagnosis [facility] [address] [id number] [address] [place] [address] November, [facility] [address] [id number] [address] [place] [address] November, Injury of left knee, subsequ ent encounter S89.92XD and Injury of left ankle, subsequent encounter S99.912D [facility] [address] [id number] [address] [place] [address] May, [facility] [address] [id number] [address] [place] [address] May, Mild episode of recurrent ma shawna depressive disorder F33.0 ; Elevated blood pressure reading R03.0 ; Screening for hyperlipidemia Z13.220 ; Screening for thyroid disorder Z13.29 ; Screening for diabetes mellitus Z13.1 and History of seizures Z87.898 [facility] [address] [facility] [id number] [place] [id number] Jul, [facility] [address] [facility] [id number] [address] [place] [address] Oct, [facility] [address] [facility] [id number] [address] [place] [address] Oct, [facility] [address] [facility] [id number] [place] [id number] Sep, [facility] [address] [id number] [address] [place] [address], [place] [address] Sep, [facility] [address] [id number] [address] [place] [address], [place] [address] Aug, [facility] [place] [address] [id number] [place] [id number] Aug, [facility] [address] [id number] [address] [place] [address], [place] [address] Aug, [facility] [address] [id number] [address] [place] [address], [place] [address] Aug, [facility] [place] [address] [id number] [place] [id number] Aug, [facility] [address] [id number] [address] [place] [address], [place] [address] Aug, [facility] [address] [id number] [address] [place] [address], [place] [address] Aug, [facility] [place] [address] [id number] [place] [id number] Jul, [facility] [address] [id number] [address] [place] [address], [place] [address] Jul, [facility] [address] [id number] [address] [place] [address] Jul, [facility] [address] [id number] [address] [place] [address] Jul, [facility] [place] [address] [id number] [place] [id number] Jul, [facility] [address] [id number] [address] [place] [address] Jul, [facility] [address] [id number] [address] [place] [address], [place] [address] Jun, [facility] [address] [id number] [address] [place] [address], [place] [address] Jun, [facility] [address] [id number] [place] [id number] Jun, [facility] [address] [id number] [address] [place] [address], [place] [address] Jun, [facility] [address] [id number] [place] [id number] Jun, [facility] [address] [id number] [address] [place] [address], [place] [address] Jun, [facility] [address] [id number] [address] [place] [address], [place] [address] Jun, [facility] [address] [id number] [address] [place] [address], [place] [address] May, [facility] [address] [id number] [address] [place] [address], [place] [address] May, [facility] [address] [id number] [place] [id number] May, [facility] [address] [id number] [address] [place] [address], [place] [address] May, [facility] [address] [id number] [address] [place] [address] Apr, [facility] [address] [id number] [address] [place] [address], [place] [address] Apr, [facility] [address] [id number] [place] [id number] Apr, [facility] [address] [id number] [address] [place] [address], [place] [address] Apr, [facility] [address] [id number] [address] [place] [address], [place] [address] Mar, [facility] [address] [id number] [address] [place] [address], [place] [address] Mar, [facility] [address] [id number] [address] [place] [address], [place] [address] Mar, [facility] [address] [id number] [facility] [place] [address] Mar, [facility] [place] [address] [id number] [place] [id number] Mar, [facility] [address] [id number] [facility] [place] [address] Mar, [facility] [place] [address] [id number] [place] [id number] Mar, [facility] [address] [id number] [address] [place] [address], [place] [address] Mar, [facility] [address] [id number] [address] [place] [address], [place] [address] Feb, [facility] [address] [id number] [address] [place] [address], [place] [address] Feb, [facility] [address] [id number] [address] [place] [address], [place] [address] Feb, [facility] [address] [id number] [address] [place] [address], [place] [address] Feb, [facility] [address] [id number] [address] [place] [address], [place] [address] Feb, [facility] [address] [id number] [address] [place] [address], [place] [address] Feb, [facility] [place] [address] [id number] [place] [id number] Feb, [facility] [address] [id number] [address] [place] [address], [place] [address] Feb, [facility] [address] [id number] [address] [place] [address], [place] [address] Jan, [facility] [address] [id number] [facility] [place] [address] Jan, [facility] [address] [id number] [place] [id number] Jan, [facility] [address] [id number] [address] [place] [address], [place] [address] Jan, [facility] [address] [id number] [address] [place] [address], [place] [address] Dec, [facility] [place] [address] [id number] [place] [id number] Dec, [facility] [place] [address] [id number] [place] [id number] November, [facility] [address] [id number] [address] [place] [address], [place] [address] November, [facility] [place] [address] [id number] [place] [id number] November, [facility] [address] [id number] [address] [place] [address], [place] [address] November, [facility] [address] [id number] [address] [place] [address], [place] [address] Oct, [facility] [place] [address] [id number] [place] [id number] Oct, [facility] [place] [address] [id number] [place] [id number] Oct, [facility] [address] [id number] [address] [place] [address], [place] [address] Oct, [facility] [place] [address] [id number] [place] [id number] Oct, [facility] [address] [id number] [address] [place] [address], [place] [address] Oct, [facility] [place] [address] [id number] [place] [id number] Oct, [facility] [address] [id number] [address] [place] [address], [place] [address] Oct, [facility] [address] [id number] [address] [place] [address], [place] [address] Oct, [facility] [place] [address] [id number] [place] [id number] Oct, [facility] [address] [id number] [address] [place] [address] Oct, [facility] [place] [address] [id number] [place] [id number] Oct, [facility] [place] [address] [id number] [place] [id number] Sep, [facility] [address] [id number] [address] [place] [address], [place] [address] Sep, [facility] [address] [id number] [address] [place] [address], [place] [address] Sep, [facility] [place] [address] [id number] [place] [id number] Sep, [facility] [place] [address] [id number] [place] [id number] Sep, [facility] [address] [id number] [address] [place] [address] Sep, [facility] [place] [address] [id number] [place] [id number] Aug, [facility] [address] [facility] [id number] [address] [place] [address] Aug, [facility] [place] [address] [id number] [place] [id number] Aug, [facility] [address] [id number] [address] [place] [address] Aug, [facility] [address] [facility] [id number] [address] [place] [address] Aug, [facility] [address] [facility] [id number] [address] [place] [address] Aug, [facility] [place] [address] [id number] [place] [id number] Jul, [facility] [address] [facility] [id number] [address] [place] [address] Jul, [facility] [place] [address] [id number] [place] [id number] Jun, [facility] [address] [id number] [address] [place] [address] Jun, [facility] [place] [address] [id number] [place] [id number] May, [facility] [address] [id number] [address] [place] [address] May, [facility] [place] [address] [id number] [place] [id number] Apr, [facility] [address] [id number] [address] [place] [address] Apr, [facility] [place] [address] [id number] [place] [id number] Mar, [facility] [address] [facility] [id number] [address] [place] [address] Feb, [facility] [place] [address] [id number] [place] [id number] Feb, [facility] [place] [address] [id number] [place] [id number] Feb, [facility] [place] [address] [id number] [place] [id number] Feb, [facility] [address] [id number] [address] [place] [address] Jan, [facility] [place] [address] [id number] [place] [id number] Jan, [facility] [place] [address] [id number] [place] [id number] Jan, [facility] [address] [id number] [address] [place] [address] Jan, [facility] [place] [address] [id number] [place] [id number] November, [facility] [place] [address] [id number] [place] [id number] November, [facility] [address] [id number] [address] [place] [address] November, [facility] [place] [address] [id number] [place] [id number] November, [facility] [place] [address] [id number] [place] [id number] Oct, [facility] [place] [address] [id number] [place] [id number] Oct, [facility] [place] [address] [id number] [place] [id number] Sep, [facility] [place] [address] [id number] [place] [id number] Sep, [facility] [place] [address] [id number] [place] [id number] Aug, [facility] [place] [address] [id number] [place] [id number] Jul, [facility] [place] [address] [id number] [place] [id number] Jun, [facility] [address] [facility] [id number] [address] [place] [address] Jun, [facility] [address] [facility] [id number] [address] [place] [address] May, [facility] [address] [facility] [id number] [address] [place] [address] May, [facility] [place] [address] [id number] [place] [id number] May, [facility] [place] [address] [id number] [place] [id number] May, [facility] [address] [facility] [id number] [address] [place] [address] May, [facility] [address] [facility] [id number] [address] [place] [address] May, [facility] [place] [address] [id number] [place] [id number] May, [facility] [address] [id number] [address] [place] [address] May, [facility] [place] [address] [id number] [place] [id number] May, [facility] [address] [id number] [address] [place] [address] May, [facility] [place] [address] [id number] [place] [id number] May, [facility] [address] [id number] [address] [place] [address] May, [facility] [place] [address] [id number] [place] [id number] May, [facility] [address] [facility] [id number] [address] [place] [address] May, [facility] [address] [id number] [address] [place] [address] Apr, [facility] [address] [id number] [address] [place] [address] Apr, [facility] [address] [facility] [id number] [address] [place] [address] Apr, [facility] [address] [facility] [id number] [address] [place] [address] Apr, [facility] [place] [address] [id number] [place] [id number] Apr, [facility] [address] [id number] [address] [place] [address] Apr, [facility] [place] [address] [id number] [place] [id number] Apr, [facility] [place] [address] [id number] [place] [id number] Mar, [facility] [place] [address] [id number] [place] [id number] Mar, [facility] [place] [address] [id number] [place] [id number] Feb, [facility] [place] [address] [id number] [place] [id number] Jan, [facility] [place] [address] [id number] [place] [id number] Dec, [facility] [place] [address] [id number] [place] [id number] Dec, [facility] [place] [address] [id number] [place] [id number] November, [facility] [place] [address] [id number] [place] [id number] November, [facility] [place] [address] [id number] [place] [id number] November, [facility] [address] [facility] [id number] [address] [place] [address] November, [facility] [place] [address] [id number] [place] [id number] November, [facility] [place] [address] [id number] [place] [id number] November, [facility] [place] [address] [id number] [place] [id number] November, [facility] [place] [address] [id number] [place] [id number] Oct, [facility] [place] [address] [id number] [place] [id number] Oct, [facility] [place] [address] [id number] [place] [id number] Oct, [facility] [place] [address] [id number] [place] [id number] Oct, [facility] [place] [address] [id number] [place] [id number] Oct, [facility] [address] [facility] [id number] [address] [place] [address] Oct, [facility] [place] [address] [id number] [place] [id number] Oct, [facility] [place] [address] [id number] [place] [id number] Oct, [facility] [place] [address] [id number] [place] [id number] Sep, [facility] [place] [address] [id number] [place] [id number] Aug, [facility] [place] [address] [id number] [place] [id number] Aug, [facility] [place] [address] [id number] [place] [id number] Jul, [facility] [place] [address] [id number] [place] [id number] Jul, [facility] [address] [facility] [id number] [address] [place] [address] Jul, [facility] [place] [address] [id number] [place] [id number] Jul, [facility] [address] [facility] [id number] [address] [place] [address] Jun, [facility] [address] [facility] [id number] [address] [place] [address] Jun, [facility] [address] [facility] [id number] [address] [place] [address] May, [facility] [address] [facility] [id number] [address] [place] [address] Apr, [facility] [address] [facility] [id number] [address] [place] [address] Apr, [facility] [address] [facility] [id number] [address] [place] [address] Jan, [facility] [address] [facility] [id number] [address] [place] [address] Dec, [facility] [address] [facility] [id number] [address] [place] [address] Aug, [facility] [address] [id number] [address] [place] [address], [place] [address] 23 Jun, 2010 [facility] [address] [id number] [address] [place] [address], [place] [address] Jun, [facility] [address] [id number] [address] [place] [address], [place] [address] Jun, [facility] [address] [id number] [address] [place] [address], [place] [address] Jun, [facility] [address] [id number] [address] [place] [address], [place] [address] Jun, [facility] [address] [id number] [address] [place] [address], [place] [address] 15 May, 2010 [facility] [address] [id number] [address] [place] [address], [place] [address] 05 May, 2010 [facility] [address] [id number] [address] [place] [address], [place] [address] May, [facility] [address] [id number] [address] [place] [address], [place] [address] 18 Apr, 2010 [facility] [address] [id number] [address] [place] [address], [place] [address] 12 Apr, 2010 [facility] [address] [id number] [address] [place] [address], [place] [address] Apr, [facility] [address] [id number] [address] [place] [address], [place] [address] 11 Apr, 2010 [facility] [address] [id number] [address] [place] [address], [place] [address] 10 Mar, 2010 [facility] [address] [id number] [address] [place] [address], [place] [address] 17 Jun, 2009 [facility] [address] [id number] [address] [place] [address], [place] [address] 14 Jun, 2009 [facility] [address] [id number] [address] [place] [address], [place] [address] Jun, IMMUNIZATIONS No Known Immunizations SOCIAL HISTORY [...]
--- OUTSIDE RECORDS SUMMARY | 2020-01-13 17:48 | XMS REPORT ---
Author Author Ina DEJESUS [address] Address [address] [place] [address] Care Team Providers Care Social Services Manager Name Role Phone SANDY DEJESUS Unavailable PROBLEMS Type Condition ICD9-CM Code SDP50-LW Code Onset Dates Condition S tatus SNOMED Code Problem ETOH abuse F10.10 Active 36557253 Problem Mild episode of recurrent major depressive disorder F33.0 Active [id number] ALLERGIES No Information ENCOUNTERS Encounter Location Date Diagnosis [facility] [address] [id number] [address] [place] [address] November, [facility] [address] [id number] [address] [place] [address] November, Injury of left knee, subsequ ent encounter S89.92XD and Injury of left ankle, subsequent encounter S99.912D [facility] [address] [id number] [address] [place] [address] May, [facility] [address] [id number] [address] [place] [address] May, Mild episode of recurrent ma shawna depressive disorder F33.0 ; Elevated blood pressure reading R03.0 ; Screening for hyperlipidemia Z13.220 ; Screening for thyroid disorder Z13.29 ; Screening for diabetes mellitus Z13.1 and History of seizures Z87.898 [facility] [address] [facility] [id number] [place] [id number] Jul, [facility] [address] [facility] [id number] [address] [place] [address] Oct, [facility] [address] [facility] [id number] [address] [place] [address] Oct, [facility] [address] [facility] [id number] [place] [id number] Sep, [facility] [address] [id number] [address] [place] [address], [place] [address] Sep, [facility] [address] [id number] [address] [place] [address], [place] [address] Aug, [facility] [address] [id number] [place] [id number] Aug, [facility] [address] [id number] [address] [place] [address], [place] [address] Aug, [facility] [address] [id number] [address] [place] [address], [place] [address] Aug, [facility] [place] [address] [id number] [place] [id number] Aug, [facility] [address] [id number] [address] [place] [address], [place] [address] Aug, [facility] [address] [id number] [address] [place] [address], [place] [address] Aug, [facility] [place] [address] [id number] [place] [id number] Jul, [facility] [address] [id number] [address] [place] [address], [place] [address] Jul, [facility] [address] [id number] [address] [place] [address] Jul, [facility] [address] [id number] [address] [place] [address] Jul, [facility] [place] [address] [id number] [place] [id number] Jul, [facility] [address] [id number] [address] [place] [address] Jul, [facility] [address] [id number] [address] [place] [address], [place] [address] Jun, [facility] [address] [id number] [address] [place] [address], [place] [address] Jun, [facility] [address] [id number] [place] [id number] Jun, [facility] [address] [id number] [address] [place] [address], [place] [address] Jun, [facility] [address] [id number] [place] [id number] Jun, [facility] [address] [id number] [address] [place] [address], [place] [address] Jun, [facility] [address] [id number] [address] [place] [address], [place] [address] Jun, [facility] [address] [id number] [address] [place] [address], [place] [address] May, [facility] [address] [id number] [address] [place] [address], [place] [address] May, [facility] [address] [id number] [place] [id number] May, [facility] [address] [id number] [address] [place] [address], [place] [address] May, [facility] [address] [id number] [address] [place] [address] Apr, [facility] [address] [id number] [address] [place] [address], [place] [address] Apr, [facility] [address] [id number] [place] [id number] Apr, [facility] [address] [id number] [address] [place] [address], [place] [address] Apr, [facility] [address] [id number] [address] [place] [address], [place] [address] Mar, [facility] [address] [id number] [address] [place] [address], [place] [address] Mar, [facility] [address] [id number] [address] [place] [address], [place] [address] Mar, [facility] [address] [id number] [facility] [place] [address] Mar, [facility] [place] [address] [id number] [place] [id number] Mar, [facility] [address] [id number] [facility] [place] [address] Mar, [facility] [place] [address] [id number] [place] [id number] Mar, [facility] [address] [id number] [address] [place] [address], [place] [address] Mar, [facility] [address] [id number] [address] [place] [address], [place] [address] Feb, [facility] [address] [id number] [address] [place] [address], [place] [address] Feb, [facility] [address] [id number] [address] [place] [address], [place] [address] Feb, [facility] [address] [id number] [address] [place] [address], [place] [address] Feb, [facility] [address] [id number] [address] [place] [address], [place] [address] Feb, [facility] [address] [id number] [address] [place] [address], [place] [address] Feb, [facility] [address] [id number] [place] [id number] Feb, [facility] [address] [id number] [address] [place] [address], [place] [address] Feb, [facility] [address] [id number] [address] [place] [address], [place] [address] Jan, [facility] [address] [id number] [facility] [place] [address] Jan, [facility] [place] [address] [id number] [place] [id number] Jan, [facility] [address] [id number] [address] [place] [address], [place] [address] Jan, [facility] [address] [id number] [address] [place] [address], [place] [address] Dec, [facility] [place] [address] [id number] [place] [id number] Dec, [facility] [address] [id number] [place] [id number] November, [facility] [address] [id number] [address] [place] [address], [place] [address] November, [facility] [place] [address] [id number] [place] [id number] November, [facility] [address] [id number] [address] [place] [address], [place] [address] November, [facility] [address] [id number] [address] [place] [address], [place] [address] Oct, [facility] [place] [address] [id number] [place] [id number] Oct, [facility] [place] [address] [id number] [place] [id number] Oct, [facility] [address] [id number] [address] [place] [address], [place] [address] Oct, [facility] [place] [address] [id number] [place] [id number] Oct, [facility] [address] [id number] [address] [place] [address], [place] [address] Oct, [facility] [place] [address] [id number] [place] [id number] Oct, [facility] [address] [id number] [address] [place] [address], [place] [address] Oct, [facility] [address] [id number] [address] [place] [address], [place] [address] Oct, [facility] [place] [address] [id number] [place] [id number] Oct, [facility] [address] [id number] [address] [place] [address] Oct, [facility] [place] [address] [id number] [place] [id number] Oct, [facility] [place] [address] [id number] [place] [id number] Sep, [facility] [address] [id number] [address] [place] [address], [place] [address] Sep, [facility] [address] [id number] [address] [place] [address], [place] [address] Sep, [facility] [place] [address] [id number] [place] [id number] Sep, [facility] [place] [address] [id number] [place] [id number] Sep, [facility] [address] [id number] [address] [place] [address] Sep, [facility] [place] [address] [id number] [place] [id number] Aug, [facility] [address] [facility] [id number] [address] [place] [address] Aug, [facility] [place] [address] [id number] [place] [id number] Aug, [facility] [address] [id number] [address] [place] [address] Aug, [facility] [address] [facility] [id number] [address] [place] [address] Aug, [facility] [address] [facility] [id number] [address] [place] [address] Aug, [facility] [place] [address] [id number] [place] [id number] Jul, [facility] [address] [facility] [id number] [address] [place] [address] Jul, [facility] [place] [address] [id number] [place] [id number] Jun, [facility] [address] [id number] [address] [place] [address] Jun, [facility] [place] [address] [id number] [place] [id number] May, [facility] [address] [id number] [address] [place] [address] May, [facility] [place] [address] [id number] [place] [id number] Apr, [facility] [address] [id number] [address] [place] [address] Apr, [facility] [place] [address] [id number] [place] [id number] Mar, [facility] [address] [facility] [id number] [address] [place] [address] Feb, [facility] [place] [address] [id number] [place] [id number] Feb, [facility] [place] [address] [id number] [place] [id number] Feb, [facility] [place] [address] [id number] [place] [id number] Feb, [facility] [address] [id number] [address] [place] [address] Jan, [facility] [place] [address] [id number] [place] [id number] Jan, [facility] [place] [address] [id number] [place] [id number] Jan, [facility] [address] [id number] [address] [place] [address] Jan, [facility] [place] [address] [id number] [place] [id number] November, [facility] [place] [address] [id number] [place] [id number] November, [facility] [address] [id number] [address] [place] [address] November, [facility] [place] [address] [id number] [place] [id number] November, [facility] [place] [address] [id number] [place] [id number] Oct, [facility] [place] [address] [id number] [place] [id number] Oct, [facility] [place] [address] [id number] [place] [id number] Sep, [facility] [place] [address] [id number] [place] [id number] Sep, [facility] [place] [address] [id number] [place] [id number] Aug, [facility] [place] [address] [id number] [place] [id number] Jul, [facility] [place] [address] [id number] [place] [id number] Jun, [facility] [address] [facility] [id number] [address] [place] [address] Jun, [facility] [address] [facility] [id number] [address] [place] [address] May, [facility] [address] [facility] [id number] [address] [place] [address] May, [facility] [place] [address] [id number] [place] [id number] May, [facility] [place] [address] [id number] [place] [id number] May, [facility] [address] [facility] [id number] [address] [place] [address] May, [facility] [address] [facility] [id number] [address] [place] [address] May, [facility] [place] [address] [id number] [place] [id number] May, [facility] [address] [id number] [address] [place] [address] May, [facility] [place] [address] [id number] [place] [id number] May, [facility] [address] [id number] [address] [place] [address] May, [facility] [place] [address] [id number] [place] [id number] May, [facility] [address] [id number] [address] [place] [address] May, [facility] [place] [address] [id number] [place] [id number] May, [facility] [address] [facility] [id number] [address] [place] [address] May, [facility] [address] [id number] [address] [place] [address] Apr, [facility] [address] [id number] [address] [place] [address] Apr, [facility] [address] [facility] [id number] [address] [place] [address] Apr, [facility] [address] [facility] [id number] [address] [place] [address] Apr, [facility] [place] [address] [id number] [place] [id number] Apr, [facility] [address] [id number] [address] [place] [address] Apr, [facility] [place] [address] [id number] [place] [id number] Apr, [facility] [place] [address] [id number] [place] [id number] Mar, [facility] [place] [address] [id number] [place] [id number] Mar, [facility] [place] [address] [id number] [place] [id number] Feb, [facility] [place] [address] [id number] [place] [id number] Jan, [facility] [place] [address] [id number] [place] [id number] Dec, [facility] [place] [address] [id number] [place] [id number] Dec, [facility] [place] [address] [id number] [place] [id number] November, [facility] [place] [address] [id number] [place] [id number] November, [facility] [place] [address] [id number] [place] [id number] November, [facility] [address] [facility] [id number] [address] [place] [address] November, [facility] [place] [address] [id number] [place] [id number] November, [facility] [place] [address] [id number] [place] [id number] November, [facility] [place] [address] [id number] [place] [id number] November, [facility] [place] [address] [id number] [place] [id number] Oct, [facility] [place] [address] [id number] [place] [id number] Oct, [facility] [place] [address] [id number] [place] [id number] Oct, [facility] [place] [address] [id number] [place] [id number] Oct, [facility] [place] [address] [id number] [place] [id number] Oct, [facility] [address] [facility] [id number] [address] [place] [address] Oct, [facility] [place] [address] [id number] [place] [id number] Oct, [facility] [place] [address] [id number] [place] [id number] Oct, [facility] [place] [address] [id number] [place] [id number] Sep, [facility] [place] [address] [id number] [place] [id number] Aug, [facility] [place] [address] [id number] [place] [id number] Aug, [facility] [place] [address] [id number] [place] [id number] Jul, [facility] [place] [address] [id number] [place] [id number] Jul, [facility] [address] [facility] [id number] [address] [place] [address] Jul, [facility] [place] [address] [id number] [place] [id number] Jul, [facility] [address] [facility] [id number] [address] [place] [address] Jun, [facility] [address] [facility] [id number] [address] [place] [address] Jun, [facility] [address] [facility] [id number] [address] [place] [address] May, [facility] [address] [facility] [id number] [address] [place] [address] Apr, [facility] [address] [facility] [id number] [address] [place] [address] Apr, [facility] [address] [facility] [id number] [address] [place] [address] Jan, [facility] [address] [facility] [id number] [address] [place] [id number] Dec, [facility] [address] [facility] [id number] [address] [place] [id number] Aug, [facility] [address] [id number] [address] [place] [address], [place] [address] 23 Jun, 2010 [facility] [address] [id number] [address] [place] [address], [place] [address] Jun, [facility] [address] [id number] [address] [place] [address], [place] [address] Jun, [facility] [address] [id number] [address] [place] [address], [place] [address] Jun, [facility] [address] [id number] [address] [place] [address], [place] [address] Jun, [facility] [address] [id number] [address] [place] [address], [place] [address] 15 May, 2010 [facility] [address] [id number] [address] [place] [address], [place] [address] 05 May, 2010 [facility] [address] [id number] [address] [place] [address], [place] [address] May, [facility] [address] [id number] [address] [place] [address], [place] [address] 18 Apr, 2010 [facility] [address] [id number] [address] [place] [address], [place] [address] 12 Apr, 2010 [facility] [address] [id number] [address] [place] [address], [place] [address] Apr, [facility] [address] [id number] [address] [place] [address], [place] [address] 11 Apr, 2010 [facility] [address] [id number] [address] [place] [address], [place] [address] 10 Mar, 2010 [facility] [address] [id number] [address] [place] [address], [place] [id number] 17 Jun, 2009 [facility] [address] [id number] [address] [place] [address], [place] [id number] 14 Jun, 2009 [facility] [address] [id number] [address] [place] [address], [place] [id number] Jun, IMMUNIZATIONS No Known Immunizations SOCIAL HISTORY [...]
--- OUTSIDE RECORDS SUMMARY | 2020-01-13 17:48 | XMS REPORT ---
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 Role Phone Migration, Doctor Unavailable Unavailable PROBLEMS Type Condition ICD9-CM Code ORQ10-IU Code Onset Dates Condition S tatus SNOMED Code Problem ETOH abuse F10.10 Active 23163367 Problem Mild episode of recurrent major depressive disorder F33.0 Active [id number] ALLERGIES No Information ENCOUNTERS Encounter Location Date Diagnosis [facility] [address] [id number] [address] [place] [address] November, [facility] [address] [id number] [address] [place] [address] November, Injury of left knee, subsequ ent encounter S89.92XD and Injury of left ankle, subsequent encounter S99.912D [facility] [id number] [place] [address] May, [facility] [address] [id number] [address] [place] [address] May, Mild episode of recurrent ma shawna depressive disorder F33.0 ; Elevated blood pressure reading R03.0 ; Screening for hyperlipidemia Z13.220 ; Screening for thyroid disorder Z13.29 ; Screening for diabetes mellitus Z13.1 and History of seizures Z87.898 [facility] [address] [facility] [id number] [place] [id number] Jul, [facility] [address] [facility] [id number] [address] [place] [address] Oct, [facility] [address] [facility] [id number] [address] [place] [address] Oct, [facility] [address] [facility] [id number] [place] [id number] Sep, [facility] [address] [facility] [id number] [address] [place] [address], [place] [address] Sep, [facility] [address] [id number] [address] [place] [address], [place] [address] Aug, [facility] [place] [address] [id number] [place] [id number] Aug, [facility] [address] [id number] [address] [place] [address], [place] [address] Aug, [facility] [address] [id number] [address] [place] [address], [place] [address] Aug, [facility] [place] [address] [id number] [place] [id number] Aug, [facility] [address] [id number] [address] [place] [address], [place] [address] Aug, [facility] [address] [id number] [address] [place] [address], [place] [address] Aug, [facility] [place] [address] [id number] [place] [id number] Jul, [facility] [address] [id number] [address] [place] [address], [place] [address] Jul, [facility] [address] [id number] [address] [place] [address], [place] [address] Jul, [facility] [address] [id number] [address] [place] [address], [place] [address] Jul, [facility] [place] [address] [id number] [place] [id number] Jul, [facility] [address] [id number] [address] [place] [address] Jul, [facility] [address] [id number] [address] [place] [address], [place] [address] Jun, [facility] [address] [id number] [address] [place] [address], [place] [address] Jun, [facility] [place] [address] [facility] [id number] [place] [id number] Jun, [facility] [address] [id number] [address] [place] [address], [place] [address] Jun, [facility] [place] [address] [id number] [place] [id number] Jun, [facility] [address] [id number] [address] [place] [address], [place] [address] Jun, [facility] [address] [id number] [address] [place] [address], [place] [address] Jun, [facility] [address] [id number] [address] [place] [address], [place] [address] May, [facility] [address] [id number] [address] [place] [address], [place] [address] May, [facility] [place] [address] [id number] [place] [id number] May, [facility] [address] [id number] [address] [place] [address], [place] [address] May, [facility] [address] [id number] [address] [place] [address] Apr, [facility] [address] [id number] [address] [place] [address], [place] [address] Apr, [facility] [place] [address] [id number] [place] [id number] Apr, [facility] [address] [id number] [address] [place] [address] Apr, [facility] [address] [id number] [address] [place] [address], [place] [address] Mar, [facility] [address] [id number] [address] [place] [address], [place] [address] Mar, [facility] [address] [id number] [address] [place] [address], [place] [address] Mar, [facility] [address] [id number] [address] [place] [address], [place] [address] Mar, [facility] [place] [address] [id number] [place] [id number] Mar, [facility] [address] [id number] [address] [place] [address], [place] [address] Mar, [facility] [place] [address] [id number] [place] [id number] Mar, [facility] [address] [id number] [address] [place] [address], [place] [address] Mar, [facility] [address] [id number] [address] [place] [address], [place] [address] Feb, [facility] [address] [id number] [address] [place] [address], [place] [address] Feb, [facility] [address] [id number] [address] [place] [address], [place] [address] Feb, [facility] [address] [id number] [address] [place] [address], [place] [address] Feb, [facility] [address] [id number] [address] [place] [address] Feb, [facility] [address] [id number] [address] [place] [address], [place] [address] Feb, [facility] [place] [address] [id number] [place] [id number] Feb, [facility] [address] [id number] [address] [place] [address] Feb, [facility] [address] [id number] [address] [place] [address], [place] [address] Jan, [facility] [address] [id number] [address] [place] [address] Jan, [facility] [place] [address] [id number] [place] [id number] Jan, [facility] [address] [id number] [address] [place] [address], [place] [address] Jan, [facility] [address] [id number] [address] [place] [address], [place] [address] Dec, [facility] [place] [address] [id number] [place] [id number] Dec, [facility] [place] [address] [id number] [place] [id number] November, [facility] [address] [id number] [address] [place] [address], [place] [address] November, [facility] [place] [address] [id number] [place] [id number] November, [facility] [address] [id number] [address] [place] [address], [place] [address] November, [facility] [address] [id number] [address] [place] [address], [place] [address] Oct, [facility] [place] [address] [id number] [place] [id number] Oct, [facility] [place] [address] [id number] [place] [id number] Oct, [facility] [address] [id number] [address] [place] [address], [place] [address] Oct, [facility] [place] [address] [id number] [place] [id number] Oct, [facility] [address] [id number] [address] [place] [address], [place] [address] Oct, [facility] [place] [address] [id number] [place] [id number] Oct, [facility] [address] [id number] [address] [place] [address], [place] [address] Oct, [facility] [address] [id number] [address] [place] [address], [place] [address] Oct, [facility] [place] [address] [id number] [place] [id number] Oct, [facility] [address] [id number] [facility] [place] [address] Oct, [facility] [place] [address] [id number] [place] [id number] Oct, [facility] [place] [address] [id number] [place] [id number] Sep, [facility] [address] [id number] [address] [place] [address], [place] [address] Sep, [facility] [address] [id number] [address] [place] [address], [place] [address] Sep, [facility] [place] [address] [id number] [place] [id number] Sep, [facility] [place] [address] [id number] [place] [id number] Sep, [facility] [address] [id number] [address] [place] [address], [place] [address] Sep, [facility] [place] [address] [id number] [place] [id number] Aug, [facility] [address] [id number] [address] [place] [address], [place] [address] Aug, [facility] [place] [address] [id number] [place] [id number] Aug, [facility] [address] [id number] [address] [place] [address], [place] [address] Aug, [facility] [address] [id number] [address] [place] [address], [place] [address] Aug, [facility] [address] [id number] [address] [place] [address], [place] [address] Aug, [facility] [place] [address] [id number] [place] [id number] Jul, [facility] [address] [facility] [id number] [address] [place] [address], [place] [address] Jul, [facility] [place] [address] [id number] [place] [id number] Jun, [facility] [address] [id number] [address] [place] [address], [place] [address] Jun, [facility] [place] [address] [id number] [place] [id number] May, [facility] [address] [id number] [address] [place] [address], [place] [address] May, [facility] [place] [address] [id number] [place] [id number] Apr, [facility] [address] [id number] [address] [place] [address], [place] [address] Apr, [facility] [place] [address] [id number] [place] [id number] Mar, [facility] [address] [facility] [id number] [address] [place] [address], [place] [address] Feb, [facility] [place] [address] [id number] [place] [id number] Feb, [facility] [place] [address] [id number] [place] [id number] Feb, [facility] [place] [address] [id number] [place] [id number] Feb, [facility] [address] [id number] [address] [place] [address], [place] [address] Jan, [facility] [place] [address] [id number] [place] [id number] Jan, [facility] [place] [address] [id number] [place] [id number] Jan, [facility] [address] [id number] [address] [place] [address], [place] [address] Jan, [facility] [place] [address] [id number] [place] [id number] November, [facility] [place] [address] [id number] [place] [id number] November, [facility] [address] [id number] [address] [place] [address] November, [facility] [place] [address] [id number] [place] [id number] November, [facility] [place] [address] [id number] [place] [id number] Oct, [facility] [place] [address] [id number] [place] [id number] Oct, [facility] [place] [address] [id number] [place] [id number] Sep, [facility] [place] [address] [id number] [place] [id number] Sep, [facility] [place] [address] [id number] [place] [id number] Aug, [facility] [place] [address] [id number] [place] [id number] Jul, [facility] [place] [address] [id number] [place] [id number] Jun, [facility] [address] [facility] [id number] [address] [place] [address] Jun, [facility] [address] [facility] [id number] [address] [place] [address] May, [facility] [address] [facility] [id number] [address] [place] [address] May, [facility] [place] [address] [id number] [place] [id number] May, [facility] [place] [address] [id number] [place] [id number] May, [facility] [address] [facility] [id number] [address] [place] [address] May, [facility] [address] [facility] [id number] [address] [place] [address] May, [facility] [place] [address] [id number] [place] [id number] May, [facility] [address] [facility] [id number] [address] [place] [address] 14 May, 2012 [facility] [place] [address] [id number] [place] [id number] May, [facility] [address] [facility] [id number] [address] [place] [address] May, [facility] [place] [address] [id number] [place] [id number] May, [facility] [address] [id number] [address] [place] [address] May, [facility] [place] [address] [id number] [place] [id number] May, [facility] [address] [facility] [id number] [address] [place] [address] May, [facility] [address] [facility] [id number] [address] [place] [address] Apr, [facility] [address] [facility] [id number] [address] [place] [address] Apr, [facility] [address] [facility] [id number] [address] [place] [address] Apr, [facility] [address] [facility] [id number] [address] [place] [address] Apr, [facility] [place] [address] [id number] [place] [id number] Apr, [facility] [address] [facility] [id number] [address] [place] [address] Apr, [facility] [place] [address] [id number] [place] [id number] Apr, [facility] [place] [address] [id number] [place] [id number] Mar, [facility] [place] [address] [id number] [place] [id number] Mar, [facility] [place] [address] [id number] [place] [id number] Feb, [facility] [place] [address] [id number] [place] [id number] Jan, [facility] [place] [address] [id number] [place] [id number] Dec, [facility] [place] [address] [id number] [place] [id number] Dec, [facility] [place] [address] [id number] [place] [id number] November, [facility] [place] [address] [id number] [place] [id number] November, [facility] [place] [address] [id number] [place] [id number] November, [facility] [address] [id number] [address] [address] November, [facility] [place] [address] [id number] [place] [id number] November, [facility] [place] [address] [id number] [place] [id number] November, [facility] [place] [address] [id number] [place] [id number] November, [facility] [place] [address] [id number] [place] [id number] Oct, [facility] [place] [address] [id number] [place] [id number] Oct, [facility] [place] [address] [id number] [place] [id number] Oct, [facility] [place] [address] [id number] [place] [id number] Oct, [facility] [place] [address] [id number] [place] [id number] Oct, [facility] [address] [id number] [address] [address] Oct, [facility] [place] [address] [id number] [place] [id number] Oct, [facility] [place] [address] [id number] [place] [id number] Oct, [facility] [place] [address] [id number] [place] [id number] Sep, [facility] [place] [address] [id number] [place] [id number] Aug, [facility] [place] [address] [id number] [place] [id number] Aug, [facility] [place] [address] [id number] [place] [id number] Jul, [facility] [place] [address] [id number] [place] [id number] Jul, [facility] [address] [id number] [address] [place] [address] Jul, [facility] [place] [address] [id number] [place] [id number] Jul, [facility] [address] [facility] [id number] [address] [place] [address] Jun, [facility] [address] [id number] [address] [place] [address] Jun, [facility] [address] [facility] [id number] [address] [place] [address] May, [facility] [address] [facility] [id number] [address] [place] [address] Apr, [facility] [address] [facility] [id number] [address] [place] [address] Apr, [facility] [address] [facility] [id number] [address] [place] [address] Jan, [facility] [address] [facility] [id number] [address] [place] [address] Dec, [facility] [address] [facility] [id number] [address] [place] [address] Aug, [facility] [address] [facility] [id number] [address] [place] [address] Jun, [facility] [address] [id number] [address] [place] [address] Jun, [facility] [address] [id number] [address] [place] [address] Jun, [facility] [address] [id number] [address] [place] [address] Jun, [facility] [address] [id number] [address] [place] [address] Jun, [facility] [address] [id number] [address] [place] [id number] May, [facility] [address] [id number] [address] [place] [id number] May, [facility] [address] [id number] [address] [place] [id number] May, [facility] [address] [id number] [address] [place] [id number] Apr, [facility] [address] [id number] [address] [place] [id number] Apr, [facility] [address] [id number] [address] [place] [phone] Apr, [facility] [address] [id number] [address] [place] [id number] Apr, [facility] [address] [id number] [address] [place] [id number] Mar, [facility] [address] [id number] [address] [place] [id number] Jun, [facility] [address] [id number] [address] [place] [id number] Jun, [facility] [address] [id number] [address] [place] [id number] Jun, IMMUNIZATIONS No Known Immunizations SOCIAL HISTORY [...]
--- OUTSIDE RECORDS SUMMARY | 2020-01-13 17:48 | XMS REPORT ---
Author Author Ina Staley Doctor Organization [facility] Address Unknown Phone Unavailable Care Team Providers Care Liquified Natural Gas Specialist Name Role Phone Migration, Doctor Unavailable Unavailable PROBLEMS Type Condition ICD9-CM Code OLE97-XA Code Onset Dates Condition S tatus SNOMED Code Problem ETOH abuse F10.10 Active 70286118 Problem Mild episode of recurrent major depressive disorder F33.0 Active 704043030 ALLERGIES No Information ENCOUNTERS Encounter Location Date Diagnosis [facility] [address] [id number] [address] [place] [address] November, [facility] [address] [id number] [address] [place] [address] November, Injury of left knee, subsequ ent encounter S89.92XD and Injury of left ankle, subsequent encounter S99.912D [facility] [id number] [place] [address] May, [facility] [address] [id number] [address] [place] [address] May, Mild episode of recurrent ma shawna depressive disorder F33.0 ; Elevated blood pressure reading R03.0 ; Screening for hyperlipidemia Z13.220 ; Screening for thyroid disorder Z13.29 ; Screening for diabetes mellitus Z13.1 and History of seizures Z87.898 [facility] [address] [facility] [id number] [place] [id number] Jul, [facility] [address] [facility] [id number] [address] [place] [address] Oct, [facility] [address] [facility] [id number] [address] [place] [address] Oct, [facility] [address] [facility] [id number] [place] [id number] Sep, [facility] [address] [facility] [id number] [address] [place] [address], [place] [address] Sep, [facility] [address] [id number] [address] [place] [address], [place] [address] Aug, [facility] [place] [address] [id number] [place] [id number] Aug, [facility] [address] [id number] [address] [place] [address], [place] [address] Aug, [facility] [address] [id number] [address] [place] [address], [place] [address] Aug, [facility] [place] [address] [id number] [place] [id number] Aug, [facility] [address] [id number] [address] [place] [address], [place] [address] Aug, [facility] [address] [id number] [address] [place] [address], [place] [address] Aug, [facility] [place] [address] [id number] [place] [id number] Jul, [facility] [address] [id number] [address] [place] [address], [place] [address] Jul, [facility] [address] [id number] [address] [place] [address], [place] [address] Jul, [facility] [address] [id number] [address] [place] [address], [place] [address] Jul, [facility] [place] [address] [id number] [place] [id number] Jul, [facility] [address] [id number] [address] [place] [address] Jul, [facility] [address] [id number] [address] [place] [address], [place] [address] Jun, [facility] [address] [id number] [address] [place] [address], [place] [address] Jun, [facility] [place] [address] [facility] [id number] [place] [id number] Jun, [facility] [address] [id number] [address] [place] [address], [place] [address] Jun, [facility] [place] [address] [id number] [place] [id number] Jun, [facility] [address] [id number] [address] [place] [address], [place] [address] Jun, [facility] [address] [id number] [address] [place] [address], [place] [address] Jun, [facility] [address] [id number] [address] [place] [address], [place] [address] May, [facility] [address] [id number] [address] [place] [address], [place] [address] May, [facility] [place] [address] [id number] [place] [id number] May, [facility] [address] [id number] [address] [place] [address], [place] [address] May, [facility] [address] [id number] [address] [place] [address] Apr, [facility] [address] [id number] [address] [place] [address], [place] [address] Apr, [facility] [place] [address] [id number] [place] [id number] Apr, [facility] [address] [id number] [address] [place] [address] Apr, [facility] [address] [id number] [address] [place] [address], [place] [address] Mar, [facility] [address] [id number] [address] [place] [address], [place] [address] Mar, [facility] [address] [id number] [address] [place] [address], [place] [address] Mar, [facility] [address] [id number] [address] [place] [address], [place] [address] Mar, [facility] [place] [address] [id number] [place] [id number] Mar, [facility] [address] [id number] [address] [place] [address], [place] [address] Mar, [facility] [place] [address] [id number] [place] [id number] Mar, [facility] [address] [id number] [address] [place] [address], [place] [address] Mar, [facility] [address] [id number] [address] [place] [address], [place] [address] Feb, [facility] [address] [id number] [address] [place] [address], [place] [address] Feb, [facility] [address] [id number] [address] [place] [address], [place] [address] Feb, [facility] [address] [id number] [address] [place] [address], [place] [address] Feb, [facility] [address] [id number] [address] [place] [address] Feb, [facility] [address] [id number] [address] [place] [address], [place] [address] Feb, [facility] [place] [address] [id number] [place] [id number] Feb, [facility] [address] [id number] [address] [place] [address] Feb, [facility] [address] [id number] [address] [place] [address], [place] [address] Jan, [facility] [address] [id number] [address] [place] [address] Jan, [facility] [place] [address] [id number] [place] [id number] Jan, [facility] [address] [id number] [address] [place] [address], [place] [address] Jan, [facility] [address] [id number] [address] [place] [address], [place] [address] Dec, [facility] [place] [address] [id number] [place] [id number] Dec, [facility] [place] [address] [id number] [place] [id number] November, [facility] [address] [id number] [address] [place] [address], [place] [address] November, [facility] [place] [address] [id number] [place] [id number] November, [facility] [address] [id number] [address] [place] [address], [place] [address] November, [facility] [address] [id number] [address] [place] [address], [place] [address] Oct, [facility] [place] [address] [id number] [place] [id number] Oct, [facility] [place] [address] [id number] [place] [id number] Oct, [facility] [address] [id number] [address] [place] [address], [place] [address] Oct, [facility] [place] [address] [id number] [place] [id number] Oct, [facility] [address] [id number] [address] [place] [address], [place] [address] Oct, [facility] [place] [address] [id number] [place] [id number] Oct, [facility] [address] [id number] [address] [place] [address], [place] [address] Oct, [facility] [address] [id number] [address] [place] [address], [place] [address] Oct, [facility] [place] [address] [id number] [place] [id number] Oct, [facility] [address] [id number] [facility] [place] [address] Oct, [facility] [place] [address] [id number] [place] [id number] Oct, [facility] [place] [address] [id number] [place] [id number] Sep, [facility] [address] [id number] [address] [place] [address], [place] [address] Sep, [facility] [address] [id number] [address] [place] [address], [place] [address] Sep, [facility] [place] [address] [id number] [place] [id number] Sep, [facility] [place] [address] [id number] [place] [id number] Sep, [facility] [address] [id number] [address] [place] [address], [place] [address] Sep, [facility] [place] [address] [id number] [place] [id number] Aug, [facility] [address] [id number] [address] [place] [address], [place] [address] Aug, [facility] [place] [address] [id number] [place] [id number] Aug, [facility] [address] [id number] [address] [place] [address], [place] [address] Aug, [facility] [address] [id number] [address] [place] [address], [place] [address] Aug, [facility] [address] [id number] [address] [place] [address], [place] [address] Aug, [facility] [place] [address] [id number] [place] [id number] Jul, [facility] [address] [facility] [id number] [address] [place] [address], [place] [address] Jul, [facility] [place] [address] [id number] [place] [id number] Jun, [facility] [address] [id number] [address] [place] [address], [place] [address] Jun, [facility] [place] [address] [id number] [place] [id number] May, [facility] [address] [id number] [address] [place] [address], [place] [address] May, [facility] [place] [address] [id number] [place] [id number] Apr, [facility] [address] [id number] [address] [place] [address], [place] [address] Apr, [facility] [place] [address] [id number] [place] [id number] Mar, [facility] [address] [facility] [id number] [address] [place] [address], [place] [address] Feb, [facility] [place] [address] [id number] [place] [id number] Feb, [facility] [place] [address] [id number] [place] [id number] Feb, [facility] [place] [address] [id number] [place] [id number] Feb, [facility] [address] [id number] [address] [place] [address], [place] [address] Jan, [facility] [place] [address] [id number] [place] [id number] Jan, [facility] [place] [address] [id number] [place] [id number] Jan, [facility] [address] [id number] [address] [place] [address], [place] [address] Jan, [facility] [place] [address] [id number] [place] [id number] November, [facility] [place] [address] [id number] [place] [id number] November, [facility] [address] [id number] [address] [place] [address] November, [facility] [place] [address] [id number] [place] [id number] November, [facility] [place] [address] [id number] [place] [id number] Oct, [facility] [place] [address] [id number] [place] [id number] Oct, [facility] [place] [address] [id number] [place] [id number] Sep, [facility] [place] [address] [id number] [place] [id number] Sep, [facility] [place] [address] [id number] [place] [id number] Aug, [facility] [place] [address] [id number] [place] [id number] Jul, [facility] [place] [address] [id number] [place] [id number] Jun, [facility] [address] [facility] [id number] [address] [place] [address] Jun, [facility] [address] [facility] [id number] [address] [place] [address] May, [facility] [address] [facility] [id number] [address] [place] [address] May, [facility] [place] [address] [id number] [place] [id number] May, [facility] [place] [address] [id number] [place] [id number] May, [facility] [address] [facility] [id number] [address] [place] [address] May, [facility] [address] [facility] [id number] [address] [place] [address] May, [facility] [place] [address] [id number] [place] [id number] May, [facility] [address] [facility] [id number] [address] [place] [address] 14 May, 2012 [facility] [place] [address] [id number] [place] [id number] May, [facility] [address] [facility] [id number] [address] [place] [address] May, [facility] [place] [address] [id number] [place] [id number] May, [facility] [address] [id number] [address] [place] [address] May, [facility] [place] [address] [id number] [place] [id number] May, [facility] [address] [facility] [id number] [address] [place] [address] May, [facility] [address] [facility] [id number] [address] [place] [address] Apr, [facility] [address] [facility] [id number] [address] [place] [address] Apr, [facility] [address] [facility] [id number] [address] [place] [address] Apr, [facility] [address] [facility] [id number] [address] [place] [address] Apr, [facility] [place] [address] [id number] [place] [id number] Apr, [facility] [address] [facility] [id number] [address] [place] [address] Apr, [facility] [place] [address] [id number] [place] [id number] Apr, [facility] [place] [address] [id number] [place] [id number] Mar, [facility] [place] [address] [id number] [place] [id number] Mar, [facility] [place] [address] [id number] [place] [id number] Feb, [facility] [place] [address] [id number] [place] [id number] Jan, [facility] [place] [address] [id number] [place] [id number] Dec, [facility] [place] [address] [id number] [place] [id number] Dec, [facility] [place] [address] [id number] [place] [id number] November, [facility] [place] [address] [id number] [place] [id number] November, [facility] [place] [address] [id number] [place] [id number] November, [facility] [address] [id number] [address] [place] [address] November, [facility] [place] [address] [id number] [place] [id number] November, [facility] [place] [address] [id number] [place] [id number] November, [facility] [place] [address] [id number] [place] [id number] November, [facility] [place] [address] [id number] [place] [id number] Oct, [facility] [place] [address] [id number] [place] [id number] Oct, [facility] [place] [address] [id number] [place] [id number] Oct, [facility] [place] [address] [id number] [place] [id number] Oct, [facility] [place] [address] [id number] [place] [id number] Oct, [facility] [address] [id number] [address] [place] [address] Oct, [facility] [place] [address] [id number] [place] [id number] Oct, [facility] [place] [address] [id number] [place] [id number] Oct, [facility] [place] [address] [id number] [place] [id number] Sep, [facility] [place] [address] [id number] [place] [id number] Aug, [facility] [place] [address] [id number] [place] [id number] Aug, [facility] [place] [address] [id number] [place] [id number] Jul, [facility] [place] [address] [id number] [place] [id number] Jul, [facility] [address] [id number] [address] [place] [address] Jul, [facility] [place] [address] [id number] [place] [id number] Jul, [facility] [address] [facility] [id number] [address] [place] [address] Jun, [facility] [address] [id number] [address] [place] [address] Jun, [facility] [address] [facility] [id number] [address] [place] [address] May, [facility] [address] [facility] [id number] [address] [place] [address] Apr, [facility] [address] [facility] [id number] [address] [place] [address] Apr, [facility] [address] [facility] [id number] [address] [place] [address] Jan, [facility] [address] [facility] [id number] [address] [place] [address] Dec, [facility] [address] [facility] [id number] [address] [place] [address] Aug, [facility] [address] [facility] [id number] [address] [place] [address] Jun, [facility] [address] [id number] [address] [place] [address] Jun, [facility] [address] [id number] [address] [place] [address] Jun, [facility] [address] [id number] [address] [place] [address] Jun, [facility] [address] [id number] [address] [place] [address] Jun, [facility] [address] [id number] [address] [place] [address] May, [facility] [address] [id number] [address] [place] [address] May, [facility] [address] [id number] [address] [place] [address] May, [facility] [address] [id number] [address] [place] [phone] Apr, [facility] [address] [id number] [address] [place] [id number] Apr, [facility] [address] [id number] [address] [place] [id number] Apr, [facility] [address] [id number] [address] [place] [id number] Apr, [facility] [address] [id number] [address] [place] [id number] Mar, [facility] [address] [id number] [address] [place] [phone] Jun, [facility] [address] [id number] [address] [place] [id number] Jun, [facility] [address] [id number] [address] [place] [phone] Jun, IMMUNIZATIONS No Known Immunizations SOCIAL HISTORY [...]
--- OUTSIDE RECORDS SUMMARY | 2020-01-13 17:48 | XMS REPORT ---
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 Name Role Phone LATOYA Rodriguez Unavailable PROBLEMS Type Condition ICD9-CM Code VUO67-AJ Code Onset Dates Condition S tatus SNOMED Code Problem ETOH abuse F10.10 Active 06660117 Problem Mild episode of recurrent major depressive disorder F33.0 Active [id number] ALLERGIES No Information ENCOUNTERS Encounter Location Date Diagnosis [facility] [address] [id number] [address] [place] [address] November, [facility] [address] [address] November, Injury of left knee, subsequ ent encounter S89.92XD and Injury of left ankle, subsequent encounter S99.912D [facility] [address] [address] May, [facility] [address] [id number] [address] [place] [address] May, Mild episode of recurrent ma shawna depressive disorder F33.0 ; Elevated blood pressure reading R03.0 ; Screening for hyperlipidemia Z13.220 ; Screening for thyroid disorder Z13.29 ; Screening for diabetes mellitus Z13.1 and History of seizures Z87.898 [facility] [id number] [place] [id number] Jul, [facility] [address] [id number] [address] [place] [address] Oct, [facility] [address] [id number] [address] [place] [address] Oct, [facility] [address] [id number] [id number] Sep, [facility] [address] [id number] [address] [place] [address], [place] [address] Sep, [facility] [address] [id number] [address] [place] [address], [place] [address] Aug, 2014 [facility] [place] [address] [id number] [place] [id number] Aug, [facility] [address] [id number] [address] [place] [address], [place] [address] Aug, [facility] [address] [id number] [address] [place] [address], [place] [address] Aug, 2014 [facility] [place] [address] [id number] [place] [id number] Aug, [facility] [address] [id number] [address] [place] [address], [place] [address] Aug, [facility] [address] [id number] [address] [place] [address], [place] [address] Aug, [facility] [place] [address] [id number] [place] [id number] Jul, [facility] [address] [id number] [address] [place] [address], [place] [address] Jul, [facility] [address] [id number] [address] [place] [address], [place] [address] Jul, [facility] [address] [id number] [address] [place] [address], [place] [address] Jul, [facility] [place] [address] [id number] [place] [id number] Jul, [facility] [address] [id number] [address] [place] [address], [place] [address] Jul, [facility] [address] [id number] [address] [place] [address], [place] [address] Jun, [facility] [address] [id number] [address] [place] [address], [place] [address] Jun, [facility] [place] [address] [id number] [place] [id number] Jun, [facility] [address] [id number] [address] [place] [address], [place] [address] Jun, [facility] [place] [address] [id number] [place] [id number] Jun, [facility] [address] [id number] [address] [place] [address], [place] [address] Jun, [facility] [address] [id number] [address] [place] [address], [place] [address] Jun, [facility] [address] [id number] [address] [place] [address], [place] [address] May, [facility] [address] [id number] [address] [place] [address], [place] [address] May, [facility] [place] [address] [id number] [place] [id number] May, [facility] [address] [id number] [address] [place] [address], [place] [address] May, [facility] [address] [id number] [address] [place] [address], [place] [address] Apr, [facility] [address] [id number] [address] [place] [address], [place] [address] Apr, [facility] [place] [address] [id number] [place] [id number] Apr, [facility] [address] [id number] [address] [place] [address], [place] [address] Apr, [facility] [address] [id number] [address] [place] [address], [place] [address] Mar, [facility] [address] [id number] [address] [place] [address], [place] [address] Mar, [facility] [address] [id number] [facility] [place] [address] Mar, [facility] [address] [id number] [facility] [place] [address] Mar, [facility] [place] [address] [id number] [place] [id number] Mar, [facility] [address] [id number] [facility] [place] [address] Mar, [facility] [place] [address] [id number] [place] [id number] Mar, [facility] [address] [id number] [facility] [place] [address] Mar, [facility] [address] [id number] [address] [place] [address], [place] [address] Feb, [facility] [address] [id number] [address] [place] [address], [place] [address] Feb, [facility] [address] [id number] [address] [place] [address], [place] [address] Feb, [facility] [address] [id number] [address] [place] [address], [place] [address] Feb, [facility] [address] [id number] [address] [place] [address], [place] [address] Feb, [facility] [address] [id number] [address] [place] [address], [place] [address] Feb, [facility] [place] [address] [id number] [place] [id number] Feb, [facility] [address] [id number] [address] [place] [address], [place] [address] Feb, [facility] [address] [id number] [address] [place] [address], [place] [address] Jan, [facility] [address] [id number] [facility] [place] [address] Jan, [facility] [place] [address] [id number] [place] [id number] Jan, [facility] [address] [id number] [address] [place] [address], [place] [address] Jan, [facility] [address] [id number] [address] [place] [address], [place] [address] Dec, [facility] [place] [address] [id number] [place] [id number] Dec, [facility] [place] [address] [id number] [place] [id number] November, [facility] [address] [id number] [address] [place] [address], [place] [address] November, [facility] [place] [address] [id number] [place] [id number] November, [facility] [address] [id number] [address] [place] [address], [place] [address] November, [facility] [address] [id number] [address] [place] [address], [place] [address] Oct, [facility] [place] [address] [id number] [place] [id number] Oct, [facility] [place] [address] [id number] [place] [id number] Oct, [facility] [address] [id number] [address] [place] [address], [place] [address] Oct, [facility] [place] [address] [id number] [place] [id number] Oct, [facility] [address] [id number] [address] [place] [address], [place] [address] Oct, [facility] [place] [address] [id number] [place] [id number] Oct, [facility] [address] [id number] [address] [place] [address], [place] [address] Oct, [facility] [address] [id number] [address] [place] [address], [place] [address] Oct, [facility] [place] [address] [id number] [place] [id number] Oct, [facility] [address] [id number] [address] [place] [address] Oct, [facility] [place] [address] [id number] [place] [id number] Oct, [facility] [place] [address] [id number] [place] [id number] Sep, [facility] [address] [id number] [address] [place] [address] Sep, [facility] [address] [id number] [address] [place] [address] Sep, [facility] [place] [address] [id number] [place] [id number] Sep, [facility] [place] [address] [id number] [place] [id number] Sep, [facility] [address] [id number] [address] [place] [address] Sep, [facility] [place] [address] [id number] [place] [id number] Aug, [facility] [address] [facility] [id number] [address] [place] [address] Aug, [facility] [place] [address] [id number] [place] [id number] Aug, [facility] [address] [id number] [address] [place] [address] Aug, [facility] [address] [facility] [id number] [address] [place] [address] Aug, [facility] [address] [facility] [id number] [address] [place] [address] Aug, [facility] [place] [address] [id number] [place] [id number] Jul, [facility] [address] [id number] [address] [place] [address] Jul, [facility] [place] [address] [id number] [place] [id number] Jun, [facility] [address] [id number] [address] [place] [address] Jun, [facility] [place] [address] [id number] [place] [id number] May, [facility] [address] [facility] [id number] [address] [place] [address] May, [facility] [place] [address] [id number] [place] [id number] Apr, [facility] [address] [id number] [address] [place] [address] Apr, [facility] [place] [address] [id number] [place] [id number] Mar, [facility] [address] [facility] [id number] [address] [place] [address] Feb, [facility] [place] [address] [id number] [place] [id number] Feb, [facility] [place] [address] [id number] [place] [id number] Feb, [facility] [place] [address] [id number] [place] [id number] Feb, [facility] [address] [id number] [address] [place] [address] Jan, [facility] [place] [address] [id number] [place] [id number] Jan, [facility] [place] [address] [id number] [place] [id number] Jan, [facility] [address] [id number] [address] [place] [address] Jan, [facility] [place] [address] [id number] [place] [id number] November, [facility] [place] [address] [id number] [place] [id number] November, [facility] [address] [id number] [address] [place] [address] November, [facility] [place] [address] [id number] [place] [id number] November, [facility] [place] [address] [id number] [place] [id number] Oct, [facility] [place] [address] [id number] [place] [id number] Oct, [facility] [place] [address] [id number] [place] [id number] Sep, [facility] [place] [address] [id number] [place] [id number] Sep, [facility] [place] [address] [id number] [place] [id number] Aug, [facility] [place] [address] [id number] [place] [id number] Jul, [facility] [place] [address] [id number] [place] [id number] Jun, [facility] [address] [facility] [id number] [address] [place] [address] Jun, [facility] [address] [facility] [id number] [address] [place] [address] May, [facility] [address] [facility] [id number] [address] [place] [address] May, [facility] [place] [address] [id number] [place] [id number] May, [facility] [place] [address] [id number] [place] [id number] May, [facility] [address] [facility] [id number] [address] [place] [address] May, [facility] [address] [facility] [id number] [address] [place] [address] May, [facility] [place] [address] [id number] [place] [id number] May, [facility] [address] [id number] [address] [place] [address] May, [facility] [place] [address] [id number] [place] [id number] May, [facility] [address] [id number] [address] [place] [address] May, [facility] [place] [address] [id number] [place] [id number] May, [facility] [address] [id number] [address] [place] [address] May, [facility] [place] [address] [id number] [place] [id number] May, [facility] [address] [facility] [id number] [address] [place] [address] May, [facility] [address] [facility] [id number] [address] [place] [address] Apr, [facility] [address] [facility] [id number] [address] [place] [address] Apr, [facility] [address] [facility] [id number] [address] [place] [address] Apr, [facility] [address] [facility] [id number] [address] [place] [address] Apr, [facility] [place] [address] [id number] [place] [id number] Apr, [facility] [address] [id number] [address] [place] [address] Apr, [facility] [place] [address] [id number] [place] [id number] Apr, [facility] [place] [address] [id number] [place] [id number] Mar, [facility] [place] [address] [id number] [place] [id number] Mar, [facility] [place] [address] [id number] [place] [id number] Feb, [facility] [place] [address] [id number] [place] [id number] Jan, [facility] [place] [address] [id number] [place] [id number] Dec, [facility] [place] [address] [id number] [place] [id number] Dec, [facility] [place] [address] [id number] [place] [id number] November, [facility] [place] [address] [id number] [place] [id number] November, [facility] [place] [address] [id number] [place] [id number] November, [facility] [address] [facility] [id number] [address] [place] [address] November, [facility] [place] [address] [id number] [place] [id number] November, [facility] [place] [address] [id number] [place] [id number] November, [facility] [place] [address] [id number] [place] [id number] November, [facility] [place] [address] [id number] [place] [id number] Oct, [facility] [place] [address] [id number] [place] [id number] Oct, [facility] [place] [address] [id number] [place] [id number] Oct, [facility] [place] [address] [id number] [place] [id number] Oct, [facility] [place] [address] [id number] [place] [id number] Oct, [facility] [address] [facility] [id number] [place] [address] Oct, [facility] [place] [address] [id number] [place] [id number] Oct, [facility] [place] [address] [id number] [place] [id number] Oct, [facility] [place] [address] [id number] [place] [id number] Sep, [facility] [place] [address] [id number] [place] [id number] Aug, [facility] [place] [address] [id number] [place] [id number] Aug, [facility] [place] [address] [id number] [place] [id number] Jul, [facility] [place] [address] [id number] [place] [id number] Jul, [facility] [address] [facility] [id number] [address] [place] [address] Jul, [facility] [place] [address] [id number] [place] [id number] Jul, [facility] [address] [facility] [id number] [address] [place] [address] Jun, [facility] [address] [facility] [id number] [address] [place] [address] Jun, [facility] [address] [facility] [id number] [address] [place] [address] May, [facility] [address] [facility] [id number] [address] [place] [address] Apr, [facility] [address] [facility] [id number] [address] [place] [address] Apr, [facility] [address] [facility] [id number] [address] [place] [address] Jan, [facility] [address] [facility] [id number] [address] [place] [address] Dec, [facility] [address] [facility] [id number] [address] [place] [address] Aug, [facility] [address] [id number] [address] [place] [address], [place] [address] Jun, [facility] [address] [id number] [address] [place] [address], [place] [address] Jun, [facility] [address] [id number] [address] [place] [address], [place] [address] Jun, [facility] [address] [id number] [address] [place] [address], [place] [address] Jun, [facility] [address] [id number] [address] [place] [address], [place] [address] Jun, [facility] [address] [id number] [address] [place] [address], [place] [address] 15 May, 2010 [facility] [address] [id number] [address] [place] [address], [place] [address] May, [facility] [address] [id number] [address] [place] [address], [place] [address] May, [facility] [address] [id number] [address] [place] [address], [place] [address] Apr, [facility] [address] [id number] [address] [place] [address] Apr, [facility] [address] [id number] [address] [place] [address] Apr, [facility] [address] [id number] [address] [place] [address] Apr, [facility] [address] [id number] [address] [place] [address], [place] [address] 10 Mar, 2010 [facility] [address] [id number] [address] [place] [address], [place] [address] 17 Jun, 2009 [facility] [address] [id number] [address] [place] [id number] 14 Jun, 2009 [facility] [address] [id number] [address] [place] [address] Jun, IMMUNIZATIONS No Known Immunizations SOCIAL HISTORY Never Assessed REASON FOR VISIT PLAN OF CARE VITAL SIGNS Height 63 in 2013-02-27 Weight 149.12 lbs 2013-02-27 Temperature 98.3 degrees Fahrenheit 2013-02-27 Heart Rate 88 bpm 2013-02-27 Respiratory Rate 18 2013-02-27 Blood pressure systolic 128 mmHg 2013-02-27 Blood pressure diastolic 80 mmHg 2013-02-27 MEDICATIONS Unknown Medications RESULTS No Results PROCEDURES [...]
--- OUTSIDE RECORDS SUMMARY | 2020-01-13 17:49 | XMS REPORT ---
Author Author Ina DEJESUS [address] Address [address] [place] [address] Care Team Providers Care Paraprofessional Aide Teacher Name Role Phone SANDY DEJESUS Unavailable PROBLEMS Type Condition ICD9-CM Code [id number] Code Onset Dates Condition S tatus SNOMED Code Problem ETOH abuse F10.10 Active 73630867 Problem Mild episode of recurrent major depressive disorder F33.0 Active [id number] ALLERGIES No Information ENCOUNTERS Encounter Location Date Diagnosis [facility] [address] [address] November, [facility] [address] [facility] [id number] [address] [address] November, Injury of left knee, subsequ ent encounter S89.92XD and Injury of left ankle, subsequent encounter S99.912D [facility] [address] [address] May, [facility] [address] [address] May, Mild episode of recurrent major depressi ve disorder F33.0 ; Elevated blood pressure reading R03.0 ; Screening for hyperlipidemia Z13.220 ; Screening for thyroid disorder Z13.29 ; Screening for diabetes mellitus Z13.1 and History of seizures Z87.898 [facility] [address] [id number] [place] [id number] Jul, [facility] [address] [address] Oct, [facility] [address] [address] Oct, [facility] [id number] [place] [id number] Sep, [facility] [address] [id number] [place] [address] Sep, [facility] [id number] [place] [address] Aug, [facility] [place] [address] [id number] [id number] Aug, [facility] [id number] [place] [address] Aug, 2014 [facility] [id number] [place] [address] Aug, [facility] [place] [address] [id number] [id number] Aug, [facility] [id number] [place] [address] Aug, [facility] [id number] [place] [address] Aug, [facility] [place] [address] [id number] [id number] Jul, [facility] [id number] [place] [address] Jul, [facility] [id number] [place] [address] Jul, [facility] [id number] [place] [address] Jul, [facility] [place] [id number] [id number] Jul, [facility] [id number] [place] [address] Jul, [facility] [id number] [place] [address] Jun, [facility] [id number] [place] [address] Jun, [facility] [place] [address] [facility] [id number] Jun, [facility] [id number] [place] [address] Jun, [facility] [place] [address] [facility] [id number] Jun, [facility] [id number] [place] [address] Jun, [facility] [id number] [place] [address] Jun, [facility] [id number] [place] [address] May, [facility] [id number] [place] [address] May, [facility] [address] [facility] [id number] May, [facility] [id number] [place] [address] May, [facility] [id number] [place] [address] Apr, [facility] [id number] [place] [address] Apr, [facility] [address] [facility] [id number] Apr, [facility] [id number] [place] [address] Apr, [facility] [id number] [place] [address] Mar, [facility] [id number] [place] [address] Mar, [facility] [id number] [place] [address] Mar, [facility] [id number] [place] [address] Mar, [facility] [address] [facility] [place] [id number] Mar, [facility] [id number] [place] [address] Mar, [facility] [place] [address] [id number] [place] [address] Mar, [facility] [id number] [place] [address] Mar, [facility] [id number] [place] [address] Feb, [facility] [id number] [place] [address] Feb, [facility] [id number] [place] [address] Feb, [facility] [id number] [place] [address] Feb, [facility] [id number] [place] [address] Feb, [facility] [id number] [place] [address] Feb, [facility] [address] [facility] [address] Feb, [facility] [id number] [place] [address] Feb, [facility] [id number] [place] [address] Jan, [facility] [id number] [place] [address] Jan, [facility] [address] [id number] [place] [address] Jan, [facility] [id number] [place] [address] Jan, [facility] [id number] [place] [address] Dec, [facility] [address] [facility] [address] Dec, [facility] [address] [facility] [id number] November, [facility] [id number] [place] [address] November, [facility] [address] [facility] [address] November, [facility] [id number] [place] [address] November, [facility] [id number] [place] [address] Oct, [facility] [address] [facility] [address] Oct, [facility] [address] [facility] [address] Oct, [facility] [id number] [place] [address] Oct, [facility] [address] [facility] [place] [address] Oct, [facility] [id number] [place] [address] Oct, [facility] [address] [facility] [address] Oct, [facility] [id number] [place] [address] Oct, [facility] [id number] [place] [address] Oct, [facility] [address] [facility] [address] Oct, [facility] [id number] [place] [address] Oct, [facility] [address] [facility] [address] Oct, [facility] [address] [facility] [address] Sep, [facility] [id number] [place] [address] Sep, [facility] [id number] [place] [address] Sep, [facility] [address] [facility] [address] Sep, [facility] [id number] [address] Sep, [facility] [id number] [place] [address] Sep, [facility] [id number] [address] Aug, [facility] [id number] [place] [address] Aug, [facility] [id number] [address]449 Aug, [facility] [id number] [place] [address] Aug, [facility] [id number] [place] [address] Aug, [facility] [id number] [place] [address] Aug, [facility] [address] [id number] [address] Jul, [facility] [id number] [place] [address] Jul, [facility] [address] [facility] [id number] Jun, [facility] [id number] [place] [address] Jun, [facility] [address] [id number] [address] May, [facility] [id number] [place] [address] May, [facility] [address] [facility] [address] Apr, [facility] [id number] [place] [address] Apr, [facility] [address] [facility] [address] Mar, [facility] [place] [facility] [id number] [place] [address] Feb, [facility] [id number] [id number] Feb, [facility] [id number] [address]5612 Feb, [facility] [id number] [place] [address], [place] [address] Feb, [facility] [place] [facility] [id number] [place] [address] Jan, [facility] [id number] 056423387 Jan, [facility] [id number] [place] [address], [place] 419[address]9330 Jan, [facility] [id number] [place] [address] Jan, [facility] [id number] [address]98 November, [facility] [id number] [place] [address], [place] 7911[address]138 November, [facility] [place] [facility] [id number] [place] [address] November, [facility] [id number] 207724976 November, [facility] [id number] [place] [address], [place] 780823523 Oct, [facility] [id number] [place] [address], [place] 467407458 Oct, [facility] [id number] [place] [address], [place] 717011080 Sep, [facility] [id number] [place] [address], [place] 798422115 Sep, [facility] [id number] [place] [address], [place] 744490285 Aug, [facility] [address], [place] [address] Jul, [facility] [address] [facility] 103700794 Jun, [facility] [id number] [place] [address] Jun, [facility] [id number] [place] [address] May, [facility] [id number] [place] [address] May, [facility] [id number] 595406276 May, [facility] [id number] 4977[address] May, [facility] [id number] [place] [address] May, [facility] [id number] [place] [address] May, [facility] [id number] 59[address] May, [facility] [id number] [place] [address] May, [facility] [id number] [address] May, [facility] [id number] [place] [address] May, [facility] [id number] 77[address] May, [facility] [id number] [place] [address] May, [facility] [address] [facility] [address]96 May, [facility] [id number] [place] [address] May, [facility] [id number] [place] [address] Apr, [facility] [id number] [place] [address] Apr, [facility] [id number] [place] [address] Apr, [facility] [id number] [place] [address] Apr, [facility] [id number] [place] [address], [place] 897568340 Apr, [facility] [id number] [place] [address] Apr, [facility] [id number] [place] [address], [place] 843302633 Apr, [facility] [address], [place] 3144[address]35 Mar, [facility] [id number] [place] [address], [place] 122372985 Mar, [facility] [address], [place] 389585545 Feb, [facility] [id number] [place] [address], [place] 377794307 Jan, [facility] [address], [place] 742682442 Dec, [facility] [id number] [place] [address], [place] 684149999 Dec, [facility] [id number] [place] [address], [place] 898178572 November, [facility] [address], [place] 46[address]3634 November, [facility] [id number] [place] [address], [place] 821560236 November, [facility] [id number] [place] [address] November, [facility] [id number] [place] [address], [place] 203201055 November, [facility] [address], [place] 224287337 November, [facility] [address], [place] 973515592 November, [facility] [id number] 323335211 Oct, [facility] [id number] [place] [address], [place] 914258967 Oct, [facility] [id number] 266437665 Oct, [facility] [id number] [place] [address], [place] 232107057 Oct, [facility] [address], [place] 181319334 Oct, [facility] [id number] [place] [address] Oct, [facility] [id number] 728012657 Oct, [facility] [id number] 742715588 Oct, [facility] [id number] [place] [address], [place] 521455367 Sep, [facility] [id number] [place] [address], [place] 757527334 Aug, [facility] [id number] [place] [address], [place] 263293561 Aug, [facility] [id number] [place] [address], [place] 088425236 Jul, [facility] [id number] [place] [address], [place] 530093258 Jul, [facility] [place] [facility] [id number] [place] [address] Jul, [facility] [id number] [place] [address], [place] 785360205 Jul, [facility] [address] [address] Jun, [facility] [place] [facility] [id number] [place] [address] Jun, [facility] [address] [address] May, [facility] [id number] [place] [address] Apr, [facility] [id number] [place] [address] Apr, [facility] [id number] [place] [address] Jan, [facility] [id number] [place] [address] Dec, [facility] [id number] [place] [address] Aug, [facility] [id number] [place] [address] Jun, [facility] [id number] [place] [address] Jun, [facility] [id number] [place] [address] Jun, [facility] [id number] [place] [address] Jun, [facility] [id number] [place] [address] Jun, [facility] [id number] [place] [address] May, [facility] [id number] [place] [address] May, [facility] [id number] [place] [address] May, [facility] [id number] [place] [address] Apr, [facility] [id number] [place] [address] Apr, [facility] [id number] [place] [address] Apr, [facility] [id number] [place] [address] Apr, [facility] [id number] [place] [address] Mar, [facility] [id number] [place] [address] Jun, [facility] [id number] [place] [address] Jun, [facility] [id number] [place] [address] Jun, IMMUNIZATIONS No Known Immunizations SOCIAL HISTORY [...]
--- OUTSIDE RECORDS SUMMARY | 2020-01-13 17:49 | XMS REPORT ---
Author Author Ina DEJESUS [address] Address [address] [place] [address] Care Team Providers Care Cat Scanner Operator Name Role Phone SANDY DEJESUS Unavailable PROBLEMS Type Condition ICD9-CM Code [id number] Code Onset Dates Condition S tatus SNOMED Code Problem ETOH abuse F10.10 Active 12536247 Problem Mild episode of recurrent major depressive disorder F33.0 Active [id number] ALLERGIES No Information ENCOUNTERS Encounter Location Date Diagnosis [facility] [address] [address] November, [facility] [address] [facility] [id number] [address] [address] November, Injury of left knee, subsequ ent encounter S89.92XD and Injury of left ankle, subsequent encounter S99.912D [facility] [address] [address] May, [facility] [address] [address] May, Mild episode of recurrent major depressi ve disorder F33.0 ; Elevated blood pressure reading R03.0 ; Screening for hyperlipidemia Z13.220 ; Screening for thyroid disorder Z13.29 ; Screening for diabetes mellitus Z13.1 and History of seizures Z87.898 [facility] [address] [id number] [place] [id number] Jul, [facility] [address] [address] Oct, [facility] [address] [address] Oct, [facility] [id number] [place] [id number] Sep, [facility] [address] [id number] [place] [address] Sep, [facility] [id number] [place] [address] Aug, [facility] [place] [address] [id number] [id number] Aug, [facility] [id number] [place] [address] Aug, 2014 [facility] [id number] [place] [address] Aug, [facility] [place] [address] [id number] [id number] Aug, [facility] [id number] [place] [address] Aug, [facility] [id number] [place] [address] Aug, [facility] [place] [address] [id number] [id number] Jul, [facility] [id number] [place] [address] Jul, [facility] [id number] [place] [address] Jul, [facility] [address] [id number] [place] [address] Jul, [facility] [place] [id number] [id number] Jul, [facility] [id number] [place] [address] Jul, [facility] [id number] [place] [address] Jun, [facility] [id number] [place] [address] Jun, [facility] [place] [address] [facility] [id number] Jun, [facility] [address] [id number] [place] [address] Jun, [facility] [place] [address] [facility] [id number] Jun, [facility] [address] [id number] [place] [address] Jun, [facility] [address] [id number] [place] [address] Jun, [facility] [address] [id number] [place] [address] May, [facility] [address] [id number] [place] [address] May, [facility] [address] [facility] [id number] May, [facility] [address] [id number] [place] [address] May, [facility] [address] [id number] [place] [address] Apr, [facility] [address] [id number] [place] [address] Apr, [facility] [place] [address] [facility] [id number] Apr, [facility] [address] [id number] [place] [address] Apr, [facility] [address] [id number] [place] [address] Mar, [facility] [address] [id number] [place] [address] Mar, [facility] [address] [id number] [place] [address] Mar, [facility] [address] [id number] [place] [address] Mar, [facility] [address] [id number] [place] [id number] Mar, [facility] [address] [id number] [place] [address] Mar, [facility] [place] [address] [id number] [place] [id number] Mar, [facility] [address] [id number] [place] [address] Mar, [facility] [address] [id number] [place] [address] Feb, [facility] [address] [id number] [place] [address] Feb, [facility] [address] [id number] [place] [address] Feb, [facility] [address] [id number] [place] [address] Feb, [facility] [address] [id number] [place] [address] Feb, [facility] [address] [id number] [place] [address] Feb, [facility] [address] [facility] [id number] Feb, [facility] [address] [id number] [place] [address] Feb, [facility] [address] [id number] [place] [address] Jan, [facility] [address] [id number] [place] [address] Jan, [facility] [address] [id number] [place] [id number] Jan, [facility] [address] [id number] [place] [address] Jan, [facility] [address] [id number] [place] [address] Dec, [facility] [address] [facility] [id number] Dec, [facility] [address] [facility] [id number] November, [facility] [address] [id number] [place] [address] November, [facility] [address] [facility] [id number] November, [facility] [address] [id number] [place] [address] November, [facility] [id number] [place] [address] Oct, [facility] [address] [facility] [place] [id number] Oct, [facility] [address] [id number] [place] [id number] Oct, [facility] [address] [id number] [place] [address] Oct, [facility] [address] [id number] [place] [id number] Oct, [facility] [address] [id number] [place] [address] Oct, [facility] [address] [id number] [place] [id number] Oct, [facility] [address] [id number] [place] [address] Oct, [facility] [address] [id number] [place] [address] Oct, [facility] [address] [facility] [address] Oct, [facility] [address] [id number] [place] [address] Oct, [facility] [address] [id number] [place] [id number] Oct, [facility] [address] [facility] [id number] Sep, [facility] [address] [id number] [place] [address] Sep, [facility] [id number] [place] [address] Sep, [facility] [address] [facility] [place] [id number] Sep, [facility] [id number] [place] [id number] Sep, [facility] [id number] [place] [address] Sep, [facility] [id number] [place] [id number] Aug, [facility] [id number] [place] [address] Aug, [facility] [id number] [place] [id number] Aug, [facility] [id number] [place] [address] Aug, [facility] [id number] [place] [address] Aug, [facility] [id number] [place] [address] Aug, [facility] [address] [id number] [id number] Jul, [facility] [id number] [place] [address] Jul, [facility] [address] [facility] [id number] Jun, [facility] [id number] [place] [address] Jun, [facility] [address] [id number] [id number] May, [facility] [id number] [place] [address] May, [facility] [address] [facility] [id number] Apr, [facility] [id number] [place] [address] Apr, [facility] [address] [facility] [place] [id number] Mar, [facility] [place] [facility] [id number] [place] [address] Feb, [facility] [id number] [place] [id number] Feb, [facility] [id number] [place] [id number] Feb, [facility] [id number] [place] [address], [place] [id number] Feb, [facility] [place] [facility] [id number] [place] [address] Jan, [facility] [id number] [place] [id number] Jan, [facility] [id number] [place] [address], [place] [id number] Jan, [facility] [id number] [place] [address] Jan, [facility] [id number] [place] [id number] November, [facility] [id number] [place] [address], [place] [id number] November, [facility] [place] [facility] [id number] [place] [address] November, [facility] [id number] [place] [id number] November, [facility] [id number] [place] [address], [place] [id number] Oct, [facility] [id number] [place] [address], [place] [id number] Oct, [facility] [id number] [place] [address], [place] [id number] Sep, [facility] [id number] [place] [address], [place] [id number] Sep, [facility] [id number] [place] [address], [place] [id number] Aug, [facility] [address], [place] [id number] Jul, [facility] [address] [id number] [place] [id number] Jun, [facility] [address] [id number] [place] [address] Jun, [facility] [address] [id number] [place] [address] May, [facility] [id number] [place] [address] May, [facility] [id number] [place] [address]3756[address] May, [facility] [id number] [place] [id number] May, [facility] [id number] [place] [address] May, [facility] [id number] [place] [address] May, [facility] [address] [id number] [id number] May, [facility] [id number] [place] [address] May, [facility] [address] [id number] [id number] May, [facility] [address] [id number] [place] [address] May, [facility] [address] [id number] [id number] May, [facility] [address] [id number] [place] [address] May, [facility] [address] [facility]07[place] [id number] May, [facility] [address] [id number] [place] [address] May, [facility] [address] [id number] [place] [address] Apr, [facility] [address] [id number] [place] [address] Apr, [facility] [address] [id number] [place] [address] Apr, [facility] [address] [id number] [place] [address] Apr, [facility] [id number] [place] [address], [place] [id number] Apr, [facility] [id number] [place] [address] Apr, [facility] [id number] [place] [address], [place] [id number] Apr, [facility] [address], [place] [id number] Mar, [facility] [id number] [place] [address], [place] [id number] Mar, [facility] [address], [place] [id number] Feb, [facility] [id number] [place] [address], [place] [id number] Jan, [facility] [address], [place] [id number] Dec, [facility] [id number] [place] [address], [place] [id number] Dec, [facility] [id number] [place] [address], [place] [id number] November, [facility] [address], [place] [id number] November, [facility] [id number] [place] [address], [place] [id number] November, [facility] [address] [id number] [place] [address] November, [facility] [id number] [place] [address], [place] [id number] November, [facility] [address], [place] [id number] November, [facility] [address], [place] [id number] November, [facility] [id number] [place] [id number] Oct, [facility] [id number] [place] [address], [place] [id number] Oct, [facility] [id number] [place] [id number] Oct, [facility] [id number] [place] [address], [place] [id number] Oct, [facility] [address], [place] [id number] Oct, [facility] [id number] [place] [address] Oct, [facility] [id number] [place] [id number] Oct, [facility] [id number] [place] 243011854 Oct, [facility] [id number] [place] [address], [place] [id number] Sep, [facility] [id number] [place] [address], [place] [id number] Aug, [facility] [id number] [place] [address], [place] [id number] Aug, [facility] [id number] [place] [address], [place] [id number] Jul, [facility] [id number] [place] [address], [place] [id number] Jul, [facility] [place] [facility] [id number] [place] [address] Jul, [facility] [id number] [place] [address], [place] [id number] Jul, [facility] [address] [address] Jun, [facility] [place] [facility] [id number] [place] [address] Jun, [facility] [address] [address] May, [facility] [address] [id number] [place] [address] Apr, [facility] [address] [id number] [place] [address] Apr, [facility] [address] [id number] [place] [address] Jan, [facility] [address] [id number] [place] [address] Dec, [facility] [address] [id number] [place] [address] Aug, [facility] [address] [id number] [place] [address] Jun, [facility] [address] [id number] [place] [address] Jun, [facility] [id number] [place] [address] Jun, [facility] [address] [id number] [place] [address] Jun, [facility] [address] [id number] [place] [address] Jun, [facility] [address] [id number] [place] [address] May, [facility] [address] [id number] [place] [address] May, [facility] [address] [id number] [place] [address] May, [facility] [address] [id number] [place] [address] Apr, [facility] [address] [id number] [place] [address] Apr, [facility] [address] [id number] [place] [address] Apr, [facility] [address] [id number] [place] [address] Apr, [facility] [address] [id number] [place] [address] Mar, [facility] [address] [id number] [place] [address] Jun, [facility] [address] [id number] [place] [address] Jun, [facility] [address] [id number] [place] [address] Jun, IMMUNIZATIONS No Known Immunizations SOCIAL HISTORY [...]
--- OUTSIDE RECORDS SUMMARY | 2020-01-13 17:49 | XMS REPORT ---
Author Author Ina Staley Doctor Organization [facility] Address Unknown Phone Unavailable Care Team Providers Care Java Groovy Developer Name Role Phone Migration, Doctor Unavailable Unavailable PROBLEMS Type Condition ICD9-CM Code NUN25-HF Code Onset Dates Condition S tatus SNOMED Code Problem ETOH abuse F10.10 Active 50655372 Problem Mild episode of recurrent major depressive disorder F33.0 Active [id number] ALLERGIES No Information ENCOUNTERS Encounter Location Date Diagnosis [facility] [address] [id number] [address] [place] [address] November, [facility] [address] [id number] [address] [place] [address] November, Injury of left knee, subsequ ent encounter S89.92XD and Injury of left ankle, subsequent encounter S99.912D [facility] [id number] [place] [address] May, [facility] [address] [id number] [address] [place] [address] May, Mild episode of recurrent ma shawna depressive disorder F33.0 ; Elevated blood pressure reading R03.0 ; Screening for hyperlipidemia Z13.220 ; Screening for thyroid disorder Z13.29 ; Screening for diabetes mellitus Z13.1 and History of seizures Z87.898 [facility] [address] [facility] [id number] [place] [id number] Jul, [facility] [address] [facility] [id number] [address] [place] [address] Oct, [facility] [address] [facility] [id number] [address] [place] [address] Oct, [facility] [address] [facility] [id number] [place] [id number] Sep, [facility] [address] [facility] [id number] [address] [place] [address], [place] [address] Sep, [facility] [address] [id number] [address] [place] [address], [place] [address] Aug, [facility] [place] [address] [id number] [place] [id number] Aug, [facility] [address] [id number] [address] [place] [address], [place] [address] Aug, [facility] [address] [id number] [address] [place] [address], [place] [address] Aug, [facility] [place] [address] [id number] [place] [id number] Aug, [facility] [address] [id number] [address] [place] [address], [place] [address] Aug, [facility] [address] [id number] [address] [place] [address], [place] [address] Aug, [facility] [place] [address] [id number] [place] [id number] Jul, [facility] [address] [id number] [address] [place] [address], [place] [address] Jul, [facility] [address] [id number] [address] [place] [address], [place] [address] Jul, [facility] [address] [id number] [address] [place] [address], [place] [address] Jul, [facility] [place] [address] [id number] [place] [id number] Jul, [facility] [address] [id number] [address] [place] [address] Jul, [facility] [address] [id number] [address] [place] [address], [place] [address] Jun, [facility] [address] [id number] [address] [place] [address], [place] [address] Jun, [facility] [place] [address] [facility] [id number] [place] [id number] Jun, [facility] [address] [id number] [address] [place] [address], [place] [address] Jun, [facility] [place] [address] [id number] [place] [id number] Jun, [facility] [address] [id number] [address] [place] [address], [place] [address] Jun, [facility] [address] [id number] [address] [place] [address], [place] [address] Jun, [facility] [address] [id number] [address] [place] [address], [place] [address] May, [facility] [address] [id number] [address] [place] [address], [place] [address] May, [facility] [place] [address] [id number] [place] [id number] May, [facility] [address] [id number] [address] [place] [address], [place] [address] May, [facility] [address] [id number] [address] [place] [address] Apr, [facility] [address] [id number] [address] [place] [address], [place] [address] Apr, [facility] [place] [address] [id number] [place] [id number] Apr, [facility] [address] [id number] [address] [place] [address] Apr, [facility] [address] [id number] [address] [place] [address], [place] [address] Mar, [facility] [address] [id number] [address] [place] [address], [place] [address] Mar, [facility] [address] [id number] [address] [place] [address], [place] [address] Mar, [facility] [address] [id number] [address] [place] [address], [place] [address] Mar, [facility] [place] [address] [id number] [place] [id number] Mar, [facility] [address] [id number] [address] [place] [address], [place] [address] Mar, [facility] [place] [address] [id number] [place] [id number] Mar, [facility] [address] [id number] [address] [place] [address], [place] [address] Mar, [facility] [address] [id number] [address] [place] [address], [place] [address] Feb, [facility] [address] [id number] [address] [place] [address], [place] [address] Feb, [facility] [address] [id number] [address] [place] [address], [place] [address] Feb, [facility] [address] [id number] [address] [place] [address], [place] [address] Feb, [facility] [address] [id number] [address] [place] [address] Feb, [facility] [address] [id number] [address] [place] [address], [place] [address] Feb, [facility] [place] [address] [id number] [place] [id number] Feb, [facility] [address] [id number] [address] [place] [address] Feb, [facility] [address] [id number] [address] [place] [address], [place] [address] Jan, [facility] [address] [id number] [address] [place] [address] Jan, [facility] [place] [address] [id number] [place] [id number] Jan, [facility] [address] [id number] [address] [place] [address], [place] [address] Jan, [facility] [address] [id number] [address] [place] [address], [place] [address] Dec, [facility] [place] [address] [id number] [place] [id number] Dec, [facility] [place] [address] [id number] [place] [id number] November, [facility] [address] [id number] [address] [place] [address], [place] [address] November, [facility] [place] [address] [id number] [place] [id number] November, [facility] [address] [id number] [address] [place] [address], [place] [address] November, [facility] [address] [id number] [address] [place] [address], [place] [address] Oct, [facility] [place] [address] [id number] [place] [id number] Oct, [facility] [place] [address] [id number] [place] [id number] Oct, [facility] [address] [id number] [address] [place] [address], [place] [address] Oct, [facility] [place] [address] [id number] [place] [id number] Oct, [facility] [address] [id number] [address] [place] [address], [place] [address] Oct, [facility] [place] [address] [id number] [place] [id number] Oct, [facility] [address] [id number] [address] [place] [address], [place] [address] Oct, [facility] [address] [id number] [address] [place] [address], [place] [address] Oct, [facility] [place] [address] [id number] [place] [id number] Oct, [facility] [address] [id number] [address] [place] [address] Oct, [facility] [place] [address] [id number] [place] [id number] Oct, [facility] [place] [address] [id number] [place] [id number] Sep, [facility] [address] [id number] [address] [place] [address], [place] [address] Sep, [facility] [address] [id number] [address] [place] [address], [place] [address] Sep, [facility] [place] [address] [id number] [place] [id number] Sep, [facility] [place] [address] [id number] [place] [id number] Sep, [facility] [address] [id number] [address] [place] [address], [place] [address] Sep, [facility] [place] [address] [id number] [place] [id number] Aug, [facility] [address] [id number] [address] [place] [address], [place] [address] Aug, [facility] [place] [address] [id number] [place] [id number] Aug, [facility] [address] [id number] [address] [place] [address], [place] [address] Aug, [facility] [address] [id number] [address] [place] [address], [place] [address] Aug, [facility] [address] [id number] [address] [place] [address], [place] [address] Aug, [facility] [place] [address] [id number] [place] [id number] Jul, [facility] [address] [facility] [id number] [address] [place] [address], [place] [address] Jul, [facility] [place] [address] [id number] [place] [id number] Jun, [facility] [address] [id number] [address] [place] [address], [place] [address] Jun, [facility] [place] [address] [id number] [place] [id number] May, [facility] [address] [id number] [address] [place] [address], [place] [address] May, [facility] [place] [address] [id number] [place] [id number] Apr, [facility] [address] [id number] [address] [place] [address], [place] [address] Apr, [facility] [place] [address] [id number] [place] [id number] Mar, [facility] [address] [facility] [id number] [address] [place] [address], [place] [address] Feb, [facility] [place] [address] [id number] [place] [id number] Feb, [facility] [place] [address] [id number] [place] [id number] Feb, [facility] [place] [address] [id number] [place] [id number] Feb, [facility] [address] [id number] [address] [place] [address], [place] [address] Jan, [facility] [place] [address] [id number] [place] [id number] Jan, [facility] [place] [address] [id number] [place] [id number] Jan, [facility] [address] [id number] [address] [place] [address], [place] [address] Jan, [facility] [place] [address] [id number] [place] [id number] November, [facility] [place] [address] [id number] [place] [id number] November, [facility] [address] [id number] [address] [place] [address] November, [facility] [place] [address] [id number] [place] [id number] November, [facility] [place] [address] [id number] [place] [id number] Oct, [facility] [place] [address] [id number] [place] [id number] Oct, [facility] [place] [address] [id number] [place] [id number] Sep, [facility] [place] [address] [id number] [place] [id number] Sep, [facility] [place] [address] [id number] [place] [id number] Aug, [facility] [place] [address] [id number] [place] [id number] Jul, [facility] [place] [address] [id number] [place] [id number] Jun, [facility] [address] [facility] [id number] [address] [place] [address] Jun, [facility] [address] [facility] [id number] [address] [place] [address] May, [facility] [address] [facility] [id number] [address] [place] [address] May, [facility] [place] [address] [id number] [place] [id number] May, [facility] [place] [address] [id number] [place] [id number] May, [facility] [address] [facility] [id number] [address] [place] [address] May, [facility] [address] [facility] [id number] [address] [place] [address] May, [facility] [place] [address] [id number] [place] [id number] May, [facility] [address] [facility] [id number] [address] [place] [address] 14 May, 2012 [facility] [place] [address] [id number] [place] [id number] May, [facility] [address] [facility] [id number] [address] [place] [address] May, [facility] [place] [address] [id number] [place] [id number] May, [facility] [address] [id number] [address] [place] [address] May, [facility] [place] [address] [id number] [place] [id number] May, [facility] [address] [facility] [id number] [address] [place] [address] May, [facility] [address] [facility] [id number] [address] [place] [address] Apr, [facility] [address] [facility] [id number] [address] [place] [address] Apr, [facility] [address] [facility] [id number] [address] [place] [address] Apr, [facility] [address] [facility] [id number] [address] [place] [address] Apr, [facility] [place] [address] [id number] [place] [id number] Apr, [facility] [address] [facility] [id number] [address] [place] [address] Apr, [facility] [place] [address] [id number] [place] [id number] Apr, [facility] [place] [address] [id number] [place] [id number] Mar, [facility] [place] [address] [id number] [place] [id number] Mar, [facility] [place] [address] [id number] [place] [id number] Feb, [facility] [place] [address] [id number] [place] [id number] Jan, [facility] [place] [address] [id number] [place] [id number] Dec, [facility] [place] [address] [id number] [place] [id number] Dec, [facility] [place] [address] [id number] [place] [id number] November, [facility] [place] [address] [id number] [place] [id number] November, [facility] [place] [address] [id number] [place] [id number] November, [facility] [address] [id number] [address] [place] [address] November, [facility] [place] [address] [id number] [place] [id number] November, [facility] [place] [address] [id number] [place] [id number] November, [facility] [place] [address] [id number] [place] [id number] November, [facility] [place] [address] [id number] [place] [id number] Oct, [facility] [place] [address] [id number] [place] [id number] Oct, [facility] [place] [address] [id number] [place] [id number] Oct, [facility] [place] [address] [id number] [place] [id number] Oct, [facility] [place] [address] [id number] [place] [id number] Oct, [facility] [address] [id number] [address] [place] [address] Oct, [facility] [place] [address] [id number] [place] [id number] Oct, [facility] [place] [address] [id number] [place] [id number] Oct, [facility] [place] [address] [id number] [place] [id number] Sep, [facility] [place] [address] [id number] [place] [id number] Aug, [facility] [place] [address] [id number] [place] [id number] Aug, [facility] [place] [address] [id number] [place] [id number] Jul, [facility] [place] [address] [id number] [place] [id number] Jul, [facility] [address] [id number] [address] [place] [address] Jul, [facility] [place] [address] [id number] [place] [id number] Jul, [facility] [address] [facility] [id number] [address] [place] [address] Jun, [facility] [address] [id number] [address] [place] [address] Jun, [facility] [address] [facility] [id number] [address] [place] [address] May, [facility] [address] [facility] [id number] [address] [place] [address] Apr, [facility] [address] [facility] [id number] [address] [place] [address] Apr, [facility] [address] [facility] [id number] [address] [place] [address] Jan, [facility] [address] [facility] [id number] [address] [place] [address] Dec, [facility] [address] [facility] [id number] [address] [place] [address] Aug, [facility] [address] [facility] [id number] [address] [place] [address] Jun, [facility] [address] [id number] [address] [place] [address] Jun, [facility] [address] [id number] [address] [place] [address] Jun, [facility] [address] [id number] [address] [place] [address] Jun, [facility] [address] [id number] [address] [place] [address] Jun, [facility] [address] [id number] [address] [place] [address] May, [facility] [address] [id number] [address] [place] [address] May, [facility] [address] [id number] [address] [place] [address] May, [facility] [address] [id number] [address] [place] [address] Apr, [facility] [address] [id number] [address] [place] [address] Apr, [facility] [address] [id number] [address] [place] [address] Apr, [facility] [address] [id number] [address] [place] [id number] Apr, [facility] [address] [id number] [address] [place] [id number] Mar, [facility] [address] [id number] [address] [place] [id number] Jun, [facility] [address] [id number] [address] [place] [id number] Jun, [facility] [address] [id number] [address] [place] [id number] Jun, IMMUNIZATIONS No Known Immunizations SOCIAL HISTORY [...]
--- OUTSIDE RECORDS SUMMARY | 2020-01-13 17:49 | XMS REPORT ---
Author Author Ina DEJESUS [address] Address [address] [place] [address] Care Team Providers Care Sleep Technician Name Role Phone SANDY DEJESUS Unavailable PROBLEMS Type Condition ICD9-CM Code AHC34-ZN Code Onset Dates Condition S tatus SNOMED Code Problem ETOH abuse F10.10 Active 48658705 Problem Mild episode of recurrent major depressive disorder F33.0 Active [id number] ALLERGIES No Information ENCOUNTERS Encounter Location Date Diagnosis [facility] [address] [address] November, [facility] [address] [facility] [id number] [place], [place] [address] November, Injury of left knee, subsequ ent encounter S89.92XD and Injury of left ankle, subsequent encounter S99.912D [facility] [address] [address] May, [facility] [address] [address] May, Mild episode of recurrent major depressi ve disorder F33.0 ; Elevated blood pressure reading R03.0 ; Screening for hyperlipidemia Z13.220 ; Screening for thyroid disorder Z13.29 ; Screening for diabetes mellitus Z13.1 and History of seizures Z87.898 [facility] [address] [facility] [address] [place] [id number] Jul, [facility] [address] [address] Oct, [facility] [address] [address] Oct, [facility] [id number] [place] [id number] Sep, [facility] [address] [id number] [place] [address] Sep, [facility] [id number] [place] [address] Aug, [facility] [address] [id number] [id number] Aug, [facility] [id number] [place] [address] Aug, 2014 [facility] [id number] [place] [address] Aug, [facility] [address] [id number] [id number] Aug, [facility] [id number] [place] [address] Aug, [facility] [id number] [place] [address] Aug, [facility] [address] [id number] [id number] Jul, [facility] [id number] [place] [address] Jul, [facility] [id number] [place] [address] Jul, [facility] [address] [id number] [place] [address] Jul, [facility] [address] [id number] [id number] Jul, [facility] [id number] [place] [address] Jul, [facility] [id number] [place] [address] Jun, [facility] [id number] [place] [address] Jun, [facility] [address] [facility]07[address] [id number] Jun, [facility] [address] [id number] [place] [address] Jun, [facility] [address] [facility] [id number] Jun, [facility] [address] [id number] [place] [address] Jun, [facility] [address] [id number] [place] [address] Jun, [facility] [address] [id number] [place] [address] May, [facility] [address] [id number] [place] [address] May, [facility] [address] [facility] [id number] May, [facility] [address] [id number] [place] [address] May, [facility] [address] [id number] [place] [address] Apr, [facility] [address] [id number] [place] [address] Apr, [facility] [address] [facility] [id number] Apr, [facility] [address] [id number] [place] [address] Apr, [facility] [address] [id number] [place] [address] Mar, [facility] [address] [id number] [place] [address] Mar, [facility] [address] [id number] [place] [address] Mar, [facility] [address] [id number] [place] [address] Mar, [facility] [address] [facility] [place] [id number] Mar, [facility] [address] [id number] [place] [address] Mar, [facility] [address] [facility] [address] [place] [id number] Mar, [facility] [address] [id number] [place] [address] Mar, [facility] [address] [id number] [place] [address] Feb, [facility] [address] [id number] [place] [address] Feb, [facility] [address] [id number] [place] [address] Feb, [facility] [address] [id number] [place] [address] Feb, [facility] [address] [id number] [place] [address] Feb, [facility] [address] [id number] [place] [address] Feb, [facility] [address] [facility] [address] [id number] Feb, [facility] [address] [id number] [place] [address] Feb, [facility] [address] [id number] [place] [address] Jan, [facility] [address] [id number] [place] [address] Jan, [facility] [address] [facility] [address] [place] [id number] Jan, [facility] [address] [id number] [place] [address] Jan, [facility] [address] [id number] [place] [address] Dec, [facility] [address] [facility] [address] [id number] Dec, [facility] [address] [facility] [address] [address] November, [facility] [address] [id number] [place] [address] November, [facility] [address] [facility] [address] [id number] November, [facility] [address] [id number] [place] [address] November, [facility] [id number] [place] [address] Oct, [facility] [address] [facility] [address] [address] Oct, [facility] [address] [facility]07757[facility] [place] [address] Oct, [facility] [address] [id number] [place] [address] Oct, [facility] [address] [facility]07757[facility] [address] Oct, [facility] [address] [id number] [place] [address] Oct, [facility] [address] [facility]07757[facility] [address] Oct, [facility] [address] [id number] [place] [address] Oct, [facility] [address] [id number] [place] [address] Oct, [facility] [address] [facility]07[place] [id number] Oct, [facility] [address] [id number] [place] [address] Oct, [facility] [address] [facility]07757[facility] [id number] Oct, [facility] [address] [facility]07[place] [id number] Sep, [facility] [address] [id number] [place] [address] Sep, [facility] [id number] [place] [address] Sep, [facility] [address] [facility] [address] [place] [address] Sep, [facility] [address] [id number] [id number] Sep, [facility] [id number] [place] [address] Sep, [facility] [address] [id number] [id number] Aug, [facility] [id number] [place] [address] Aug, [facility] [id number] [id number] Aug, [facility] [id number] [place] [address] Aug, [facility] [id number] [place] [address] Aug, [facility] [id number] [place] [address] Aug, [facility] [address] [id number] [address] Jul, [facility] [id number] [place] [address] Jul, [facility] [address] [facility]07[place] [id number] Jun, [facility] [id number] [place] [address] Jun, [facility] [address] [id number] [id number] May, [facility] [id number] [place] [address] May, [facility] [address] [facility]07757[place] [address] Apr, [facility] [id number] [place] [address] Apr, [facility] [address] [facility] [address] [address] Mar, [facility] [place] [id number] [place] [address] Feb, [facility] [id number] [id number] Feb, [facility] [address] [id number] [address] Feb, [facility] [id number] [place] [address], [place] [id number] Feb, [facility] [id number] [place] [address] Jan, [facility] [address] [id number] [address] Jan, [facility] [id number] [place] [address], [place] [id number] Jan, [facility] [id number] [place] [address] Jan, [facility] [address] [id number] [id number] November, [facility] [id number] [place] [address], [place] [id number] November, [facility] [id number] [place] [address] November, [facility] [address] [id number] 777154636 November, [facility] [id number] [place] [address], [place] [id number] Oct, [facility] [id number] [place] [address], [place] 106[address]9625 Oct, [facility] [id number] [place] [address], [place] [address]0023 Sep, [facility] [id number] [place] [address], [place] 549243888 Sep, [facility] [id number] [place] [address], [place] [id number] Aug, [facility] [address], [place] [id number] Jul, [facility] [address] [facility]07757[facility] 533948146 Jun, [facility] [address] [id number] [place] [address] Jun, [facility] [address] [id number] [place] [address] May, [facility] [id number] [place] [address] May, [facility] [address] [id number] [id number] May, [facility] [address] [id number] [id number] May, [facility] [id number] [place] [address] May, [facility] [id number] [place] [address] May, [facility] [address] [id number] [id number] May, [facility] [id number] [place] [address] May, [facility] [address] [id number] [id number] May, [facility] [address] [id number] [place] [address] May, [facility] [address] [id number] [id number] May, [facility] [address] [id number] [place] [address] May, [facility] [address] [facility]07[place], [place] [id number] May, [facility] [address] [id number] [place] [address] May, [facility] [address] [id number] [place] [address] Apr, [facility] [address] [id number] [place] [address] Apr, [facility] [address] [id number] [place] [address] Apr, [facility] [address] [id number] [place] [address] Apr, [facility] [id number] [place] [address], [place] 300426647 Apr, [facility] [id number] [place] [address] Apr, [facility] [id number] [place] [address], [place] [id number] Apr, [facility] [address], [place] [id number] Mar, [facility] [id number] [place] [address], [place] 922436251 Mar, [facility] [address], [place] 28[address]504 Feb, [facility] [id number] [place] [address], [place] 452472426 Jan, [facility] [address], [place] 522596689 Dec, [facility] [id number] [place] [address], [place] 200280166 Dec, [facility] [id number] [place] [address], [place] 620962427 November, [facility] [address], [place] 443261016 November, [facility] [id number] [place] [address], [place] 118037122 November, [facility] [address] [id number] [place] [address] November, [facility] [id number] [place] [address], [place] 646662050 November, [facility] [address], [place] 576762997 November, [facility] [address], [place] 838161839 November, [facility] [address] [id number] 856369752 Oct, [facility] [id number] [place] [address], [place] 714875640 Oct, [facility] [address] [id number], [place] 108678684 Oct, [facility] [id number] [place] [address], [place] [id number] Oct, [facility] [address], [place] 450816919 Oct, [facility] [id number] [place] [address] Oct, [facility] [address] [id number], [place] 156659801 Oct, [facility] [address] [id number] 536548897 Oct, [facility] [id number] [place] [address], [place] 639721226 Sep, [facility] [id number] [place] [address], [place] 795962497 Aug, [facility] [id number] [place] [address], [place] [id number] Aug, [facility] [id number] [place] [address], [place] [id number] Jul, [facility] [id number] [place] [address], [place] [id number] Jul, [facility] [id number] [place] [address] Jul, [facility] [id number] [place] [address], [place] 101263196 Jul, [facility] [address] [address] Jun, [facility] [id number] [place] [address] Jun, [facility] [address] [address] May, [facility] [address] [id number] [place] [address] Apr, [facility] [address] [id number] [place] [address] Apr, [facility] [address] [id number] [place] [address] Jan, [facility] [address] [id number] [place] [address] Dec, [facility] [address] [id number] [place] [address] Aug, [facility] [address] [id number] [place] [address] Jun, [facility] [address] [id number] [place] [address] Jun, [facility] [id number] [place] [address] Jun, [facility] [address] [id number] [place] [address] Jun, [facility] [address] [id number] [place] [address] Jun, [facility] [address] [id number] [place] [address] May, [facility] [address] [id number] [place] [address] May, [facility] [address] [id number] [place] [address] May, [facility] [address] [id number] [place] [address] Apr, [facility] [address] [id number] [place] [address] Apr, [facility] [address] [id number] [place] [address] Apr, [facility] [address] [id number] [place] [address] Apr, [facility] [address] [facility] [id number] [place] [address] Mar, [facility] [address] [id number] [place] [address] Jun, [facility] [address] [facility] [id number] [place] [address] Jun, [facility] [address] [id number] [place] [address] Jun, IMMUNIZATIONS No Known Immunizations SOCIAL HISTORY Never Assessed REASON FOR VISIT PLAN OF CARE VITAL SIGNS Height 63 in 2013-10-03 Weight 141.8 lbs 2013-10-03 Temperature 98.1 degrees Fahrenheit 2013-10-03 Heart Rate 80 bpm 2013-10-03 Respiratory Rate 16 2013-10-03 Blood pressure systolic 120 mmHg 2013-10-03 Blood pressure diastolic 80 mmHg 2013-10-03 MEDICATIONS Unknown Medications RESULTS No Results PROCEDURES Procedure Date Ordered Result Body Site DRUG SCREEN, QUALITATE/MULTI October 03, 2013 INSTRUCTIONS MEDICATIONS ADMINISTERED No Known Medications MEDICAL [...]
--- OUTSIDE RECORDS SUMMARY | 2020-01-13 17:49 | XMS REPORT ---
Author Author Ina Rodriguez [facility] Address [address] [place] [address] Care Team Providers Care Colorman Name Role Phone LATOYA Rodriguez Unavailable PROBLEMS Type Condition ICD9-CM Code GQV27-AI Code Onset Dates Condition S tatus SNOMED Code Problem ETOH abuse F10.10 Active 44276419 Problem Mild episode of recurrent major depressive disorder F33.0 Active [id number] ALLERGIES No Information ENCOUNTERS Encounter Location Date Diagnosis [facility] [address] [address] November, [facility] [address] [facility] [place] [id number] [address] November, Injury of left knee, subsequ ent encounter S89.92XD and Injury of left ankle, subsequent encounter S99.912D [facility] [address] [address] May, [facility] [address] [address] May, Mild episode of recurrent major depressi ve disorder F33.0 ; Elevated blood pressure reading R03.0 ; Screening for hyperlipidemia Z13.220 ; Screening for thyroid disorder Z13.29 ; Screening for diabetes mellitus Z13.1 and History of seizures Z87.898 [facility] [id number] [place] [id number] Jul, [facility] [address] [address] Oct, [facility] [address] [address] Oct, [facility] [address] [id number] Sep, [facility] [address] [id number] [place] [address] Sep, [facility] [address] [id number] [place] [address] Aug, [facility] [place] [address] [facility] [id number] Aug, [facility] [id number] [place] [address] Aug, [facility] [address] [id number] [place] [address] Aug, [facility] [place] [address] [id number] [id number] Aug, [facility] [address] [id number] [place] [address] Aug, [facility] [id number] [place] [address] Aug, [facility] [place] [address] [id number] [id number] Jul, [facility] [id number] [place] [address] Jul, [facility] [address] [id number] [place] [address] Jul, [facility] [address] [id number] [place] [address] Jul, [facility] [place] [address] [id number] [id number] Jul, [facility] [address] [id number] [place] [address] Jul, [facility] [id number] [place] [address] Jun, [facility] [address] [id number] [place] [address] Jun, [facility] [place] [address] [id number] [id number] Jun, [facility] [address] [id number] [place] [address] Jun, [facility] [place] [address] [id number] [id number] Jun, [facility] [address] [id number] [place] [address] Jun, [facility] [id number] [place] [address] Jun, [facility] [id number] [place] [address] May, [facility] [id number] [place] [address] May, [facility] [place] [address] [id number] [id number] May, [facility] [id number] [place] [address] May, [facility] [id number] [place] [address] Apr, [facility] [address] [id number] [place] [address] Apr, [facility] [place] [address] [id number] [id number] Apr, [facility] [id number] [place] [address] Apr, [facility] [address] [id number] [place] [address] Mar, [facility] [address] [id number] [place] [address] Mar, [facility] [id number] [place] [address] Mar, [facility] [address] [id number] [place] [address] Mar, [facility] [address] [facility] [id number] Mar, [facility] [address] [id number] [place] [address] Mar, [facility] [address] [id number] [place] [address] Mar, [facility] [address] [id number] [place] [address] Mar, [facility] [address] [id number] [place] [address] Feb, [facility] [address] [id number] [place] [address] Feb, [facility] [address] [id number] [place] [address] Feb, [facility] [address] [id number] [place] [address] Feb, [facility] [address] [id number] [place] [address] Feb, [facility] [address] [id number] [place] [address] Feb, [facility] [address] [id number] [place] [id number] Feb, [facility] [address] [id number] [place] [address] Feb, [facility] [address] [id number] [place] [address] Jan, [facility] [address] [id number] [place] [address] Jan, [facility] [address] [id number] [place] [id number] Jan, [facility] [address] [id number] [place] [address] Jan, [facility] [address] [id number] [place] [address] Dec, [facility] [address] [facility] [id number] Dec, [facility] [place] [address] [id number] [id number] November, [facility] [address] [id number] [place] [address] November, [facility] [address] [facility] [id number] November, [facility] [id number] [place] [address] November, [facility] [id number] [place] [address] Oct, [facility] [id number] [id number] Oct, [facility] [id number] [address] Oct, [facility] [address] [id number] [place] [address] Oct, [facility] [id number] [id number] Oct, [facility] [address] [id number] [place] [address] Oct, [facility] [id number] [id number] Oct, [facility] [id number] [place] [address] Oct, [facility] [id number] [place] [address] Oct, [facility] [address] [id number] [address] Oct, [facility] [id number] [place] [address] Oct, [facility] [id number] [id number] Oct, [facility] [address] [facility] [address] Sep, [facility] [address] [id number] [place] [address] Sep, [facility] [id number] [place] [address] Sep, [facility] [address] [facility] [id number] Sep, [facility] [address] [id number] [address] Sep, [facility] [id number] [place] [address] Sep, [facility] [id number] [id number] Aug, [facility] [id number] [place] [address] Aug, [facility] [id number] [id number] Aug, [facility] [id number] [place] [address] Aug, [facility] [id number] [place] [address] Aug, [facility] [id number] [place] [address] Aug, [facility] [id number] [address] Jul, [facility] [id number] [place] [address] Jul, [facility] [address] [id number] [address] Jun, [facility] [id number] [place] [address] Jun, [facility] [address] [id number] [id number] May, [facility] [id number] [place] [address] May, [facility] [address] [facility] [id number] Apr, [facility] [id number] [place] [address] Apr, [facility] [address] [id number] [id number] Mar, [facility] [place] [facility] [id number] [place] [address] Feb, [facility] [address] [facility] [id number] Feb, [facility] [id number] [place] [address], [place] [id number] Feb, [facility] [id number] [id number] Feb, [facility] [place] [facility] [id number] [place] [address] Jan, [facility] [id number] [id number] Jan, [facility] [id number] [id number] Jan, [facility] [place] [facility] [id number] [place] [address] Jan, [facility] [id number] [id number] November, [facility] [id number] [id number] November, [facility] [place] [facility] [id number] [place] [address] November, [facility] [id number] [id number] November, [facility] [id number] [id number] Oct, [facility] [id number] [id number] Oct, [facility] [id number] [id number] Sep, [facility] [id number] [id number] Sep, [facility] [id number] [id number] Aug, [facility] [address] [facility] [address] Jul, [facility] [address] [facility] [id number] Jun, [facility] [address] [id number] [place] [address] Jun, [facility] [address] [id number] [place] [address] May, [facility] [id number] [place] [address] May, [facility] [id number] [id number] May, [facility] [id number] [id number] May, [facility] [id number] [place] [address] May, [facility] [id number] [place] [address] May, [facility] [address] [id number] [address] May, [facility] [id number] [place] [address] May, [facility] [id number] [id number] May, [facility] [address] [id number] [place] [address] May, [facility] [id number] [id number] May, [facility] [address] [id number] [place] [address] May, [facility] [id number] [address] May, [facility] [address] [id number] [place] [address] May, [facility] [address] [id number] [place] [address] Apr, [facility] [place] [facility] [address] [id number] [place] [address] Apr, [facility] [place] [facility] [address] [id number] [place] [address] Apr, [facility] [place] [facility] [address] [id number] [place] [address] Apr, [facility] [id number] [place] [address], [place] [id number] Apr, [facility] [place] [facility] [address] [id number] [place] [address] Apr, [facility] [id number] [place] [address], [place] [id number] Apr, [facility] [id number] [place] [address], [place] [id number] Mar, [facility] [id number] [place] [address], [place] [id number] Mar, [facility] [address], [place] [id number] Feb, [facility] [id number] [id number] Jan, [facility] [address] [id number] Dec, [facility] [id number] [place] [address], [place] [address] Dec, [facility] [id number] [place] [id number] November, [facility] [address], [place] [id number] November, [facility] [id number] [place] [address], [place] [address] November, [facility] [place] [facility] [id number] [place] [address] November, [facility] [id number] [place] [address], [place] [id number] November, [facility] [id number] [place] [address] [id number] November, [facility] [address] [id number] November, [facility] [id number] [id number] Oct, [facility] [id number] [id number] Oct, [facility] [id number] [address] Oct, [facility] [id number] [place] [address], [place] [id number] Oct, [facility] [id number] [id number] Oct, [facility] [address] [address] Oct, [facility] [id number] [id number] Oct, [facility] [id number] [id number] Oct, [facility] [id number] [place] [address], [place] [id number] Sep, [facility] [id number] [id number] Aug, [facility] [id number] [place] [address], [place] [id number] Aug, [facility] [id number] [address] Jul, [facility] [id number] [place] [address], [place] [id number] Jul, [facility] [id number] [place] [address] Jul, [facility] [id number] [place] [address], [place] [id number] Jul, [facility] [address] [address] Jun, [facility] [address] [address] Jun[facility] [address] [address] 18 May, 2011 [facility] [address] [facility] [id number] [place] [address] Apr, [facility] [address] [id number] [place] [address] 17 Apr, 2011 [facility] [address] [id number] [place] [address] Jan, [facility] [address] [id number] [place] [address] Dec, [facility] [address] [facility] [id number] [place] [address] Aug, [facility] [address] [id number] [place] [address] Jun, [facility] [address] [id number] [place] [address] Jun, [facility] [address] [id number] [place] [address] Jun, [facility] [address] [id number] [place] [address] Jun, [facility] [address] [id number] [place] [address] Jun, [facility] [address] [id number] [place] [address] 15 May, 2010 [facility] [address] [id number] [place] [address] 05 May, 2010 [facility] [address] [id number] [place] [address] May, [facility] [address] [id number] [place] [address] 18 Apr, 2010 [facility] [address] [id number] [place] [address] Apr, [facility] [address] [id number] [place] [address] Apr, [facility] [address] [id number] [place] [address] 11 Apr, 2010 [facility] [address] [id number] [place] [address] 10 Mar, 2010 [facility] [address] [id number] [place] [address] Jun, [facility] [address] [id number] [place] [address] Jun, [facility] [address] [id number] [place] [address] Jun, IMMUNIZATIONS No Known Immunizations SOCIAL HISTORY Never Assessed REASON FOR VISIT PLAN OF CARE VITAL SIGNS Height 63 in 2013-10-12 Weight 142 lbs 2013-10-12 MEDICATIONS Unknown Medications RESULTS No Results PROCEDURES Procedure Date Ordered Result Body Site URINALYSIS, AUTO, W/O SCOPE October 12, 2013 INSTRUCTIONS MEDICATIONS ADMINISTERED No Known Medications [...]
--- OUTSIDE RECORDS SUMMARY | 2020-01-13 17:50 | XMS REPORT ---
Author Author Ina DEJESUS [address] Address [address] [place] [address] Care Team Providers Care Exhauster Engineer Name Role Phone SANDY DEJESUS Unavailable PROBLEMS Type Condition ICD9-CM Code LDR31-BM Code Onset Dates Condition S tatus SNOMED Code Problem ETOH abuse F10.10 Active 45294412 Problem Mild episode of recurrent major depressive disorder F33.0 Active [id number] ALLERGIES No Information ENCOUNTERS Encounter Location Date Diagnosis [facility] [address] [address] November, [facility] [address] [facility] [id number] [address] [address] November, Injury of left knee, subsequ ent encounter S89.92XD and Injury of left ankle, subsequent encounter S99.912D [facility] [address] [address] May, [facility] [address] [address] May, Mild episode of recurrent major depressi ve disorder F33.0 ; Elevated blood pressure reading R03.0 ; Screening for hyperlipidemia Z13.220 ; Screening for thyroid disorder Z13.29 ; Screening for diabetes mellitus Z13.1 and History of seizures Z87.898 [facility] [address] [id number] [place] [id number] Jul, [facility] [address] [address] Oct, [facility] [address] [address] Oct, [facility] [id number] [place] [id number] Sep, [facility] [address] [id number] [place] [address] Sep, [facility] [id number] [place] [address] Aug, [facility] [id number] [id number] Aug, [facility] [id number] [place] [address] Aug, 2014 [facility] [id number] [place] [address] Aug, [facility] [id number] [id number] Aug, [facility] [id number] [place] [address] Aug, [facility] [id number] [place] [address] Aug, [facility] [id number] [id number] Jul, [facility] [id number] [place] [address] Jul, [facility] [id number] [place] [address] Jul, [facility] [id number] [place] [address] Jul, [facility] [id number] [id number] Jul, [facility] [id number] [place] [address] Jul, [facility] [id number] [place] [address] Jun, [facility] [id number] [place] [address] Jun, [facility] [address] [facility] [id number] Jun, [facility] [id number] [place] [address] Jun, [facility] [address] [facility] [address] Jun, [facility] [id number] [place] [address] Jun, [facility] [id number] [place] [address] Jun, [facility] [id number] [place] [address] May, [facility] [id number] [place] [address] May, [facility] [address] [facility] [id number] May, [facility] [id number] [place] [address] May, [facility] [id number] [place] [address] Apr, [facility] [id number] [place] [address] Apr, [facility] [address] [facility] [id number] Apr, [facility] [id number] [place] [address] Apr, [facility] [id number] [place] [address] Mar, [facility] [id number] [place] [address] Mar, [facility] [id number] [place] [address] Mar, [facility] [id number] [place] [address] Mar, [facility] [address] [id number] [place] [address] Mar, [facility] [id number] [place] [address] Mar, [facility] [place] [address] [id number] [place] [id number] Mar, [facility] [id number] [place] [address] Mar, [facility] [id number] [place] [address] Feb, [facility] [id number] [place] [address] Feb, [facility] [id number] [place] [address] Feb, [facility] [id number] [place] [address] Feb, [facility] [id number] [place] [address] Feb, [facility] [id number] [place] [address] Feb, [facility] [address] [facility] [address] Feb, [facility] [id number] [place] [address] Feb, [facility] [id number] [place] [address] Jan, [facility] [id number] [place] [address] Jan, [facility] [address] [id number] [place] [address] Jan, [facility] [id number] [place] [address] Jan, [facility] [id number] [place] [address] Dec, [facility] [address] [facility] [address] Dec, [facility] [address] [facility] [id number] November, [facility] [id number] [place] [address] November, [facility] [address] [facility] [id number] November, [facility] [id number] [place] [address] November, [facility] [id number] [place] [address] Oct, [facility] [address] [facility] [id number] Oct, [facility] [address] [facility]757[facility] [id number] Oct, [facility] [id number] [place] [address] Oct, [facility] [address] [facility]757[facility] [id number] Oct, [facility] [id number] [place] [address] Oct, [facility] [address] [facility]757[facility] [id number] Oct, [facility] [id number] [place] [address] Oct, [facility] [id number] [place] [address] Oct, [facility] [address] [facility] [address] Oct, [facility] [id number] [place] [address] Oct, [facility] [address] [facility]07757[facility] [id number] Oct, [facility] [address] [facility] [address] Sep, [facility] [id number] [place] [address] Sep, [facility] [id number] [place] [address] Sep, [facility] [address] [facility]757[facility] [id number] Sep, [facility] [id number] [id number] Sep, [facility] [id number] [place] [address] Sep, [facility] [id number] [id number] Aug, [facility] [id number] [place] [address] Aug, [facility] [id number] [id number] Aug, [facility] [id number] [place] [address] Aug, [facility] [id number] [place] [address] Aug, [facility] [id number] [place] [address] Aug, [facility] [id number] [id number] Jul, [facility] [id number] [place] [address] Jul, [facility] [address] [facility] [address] Jun, [facility] [id number] [place] [address] Jun, [facility] [id number] [address] May, [facility] [id number] [place] [address] May, [facility] [address] [facility] [address] Apr, [facility] [id number] [place] [address] Apr, [facility] [address] [facility]07757[facility] [id number] Mar, [facility] [place] [facility] [id number] [place] [address] Feb, [facility] [id number] [id number] Feb, [facility] [id number] [id number] Feb, [facility] [id number] [place] [address], [place] [id number] Feb, [facility] [place] [facility] [id number] [place] [address] Jan, [facility] [id number] [id number] Jan, [facility] [id number] [place] [address], [place] [id number] Jan, [facility] [id number] [place] [address] Jan, [facility] [id number] [id number] November, [facility] [id number] [place] [address], [place] [id number] November, [facility] [place] [facility] [id number] [place] [address] November, [facility] [id number] [id number] November, [facility] [id number] [place] [address], [place] [id number] Oct, [facility] [id number] [place] [address], [place] [id number] Oct, [facility] [id number] [place] [address], [place] [id number] Sep, [facility] [id number] [place] [address], [place] [id number] Sep, [facility] [id number] [place] [address], [place] [id number] Aug, [facility] [address], [place] [id number] Jul, [facility] [address] [facility]07757[facility] [id number] Jun, [facility] [id number] [place] [address] Jun, [facility] [id number] [place] [address] May, [facility] [id number] [place] [address] May, [facility] [id number] [id number] May, [facility] [id number] [id number] May, [facility] [id number] [place] [address] May, [facility] [id number] [place] [address] May, [facility] [id number] [id number] May, [facility] [id number] [place] [address] May, [facility] [id number] [address] May, [facility] [id number] [place] [address] May, [facility] [id number] [address] May, [facility] [id number] [place] [address] May, [facility] [address] [facility] [id number] May, [facility] [id number] [place] [address] May, [facility] [id number] [place] [address] Apr, [facility] [id number] [place] [address] Apr, [facility] [id number] [place] [address] Apr, [facility] [id number] [place] [address] Apr, [facility] [id number] [place] [address], [place] [id number] Apr, [facility] [id number] [place] [address] Apr, [facility] [id number] [place] [address], [place] [id number] Apr, [facility] [address], [place] [id number] Mar, [facility] [id number] [place] [address], [place] [id number] Mar, [facility] [address], [place] [id number] Feb, [facility] [id number] [place] [address], [place] [id number] Jan, [facility] [address], [place] [id number] Dec, [facility] [id number] [place] [address], [place] [id number] Dec, [facility] [id number] [place] [address], [place] [id number] November, [facility] [address], [place] [id number] November, [facility] [id number] [place] [address], [place] [id number] November, [facility] [id number] [place] [address] November, [facility] [id number] [place] [address], [place] [id number] November, [facility] [address], [place] [id number] November, [facility] [address], [place] [id number] November, [facility] [id number] [id number] Oct, [facility] [id number] [place] [address], [place] [id number] Oct, [facility] [id number] [id number] Oct, [facility] [id number] [place] [address], [place] [id number] Oct, [facility] [address], [place] [id number] Oct, [facility] [id number] [place] [address] Oct, [facility] [id number] [id number] Oct, [facility] [address] [id number] [id number] Oct, [facility] [id number] [place] [address], [place] 896198083 Sep, [facility] [id number] [place] [address], [place] [id number] Aug, [facility] [id number] [place] [address], [place] [id number] Aug, [facility] [id number] [place] [address], [place] [id number] Jul, [facility] [id number] [place] [address], [place] [id number] Jul, [facility] [place] [facility] [id number] [place] [address] Jul, [facility] [id number] [place] [address], [place] [id number] Jul, [facility] [address] [address] Jun, [facility] [place] [facility] [id number] [place] [address] Jun, [facility] [address] [address] May, [facility] [id number] [place] [address] Apr, [facility] [id number] [place] [address] Apr, [facility] [id number] [place] [address] Jan, [facility] [id number] [place] [address] Dec, [facility] [id number] [place] [address] Aug, [facility] [id number] [place] [address] Jun, [facility] [id number] [place] [address] Jun, [facility] [id number] [place] [address] Jun, [facility] [id number] [place] [address] Jun, [facility] [id number] [place] [address] Jun, [facility] [id number] [place] [address] May, [facility] [id number] [place] [address] May, [facility] [id number] [place] [address] May, [facility] [id number] [place] [address] Apr, [facility] [address] [id number] [place] [address] Apr, [facility] [address] [facility] [id number] [place] [address] Apr, [facility] [id number] [place] [address] Apr, [facility] [id number] [place] [address] Mar, [facility] [id number] [place] [address] Jun, [facility] [id number] [place] [address] Jun, [facility] [id number] [place] [address] Jun, IMMUNIZATIONS No Known Immunizations SOCIAL HISTORY [...]
--- OUTSIDE RECORDS SUMMARY | 2020-01-13 17:50 | XMS REPORT ---
Author Author Ina Gaines Organization [facility] Address [address] [place] [address] Care Team Providers Care Ammonium Nitrate Neutralizer Name Role Phone MARTY Gaines Unavailable PROBLEMS Type Condition ICD9-CM Code [id number] Code Onset Dates Condition S tatus SNOMED Code Problem ETOH abuse F10.10 Active [id number] Problem Mild episode of recurrent major depressive disorder F33.0 Active [id number] ALLERGIES No Information ENCOUNTERS Encounter Location Date Diagnosis [facility] [address] [address] November, [facility] [address] [facility] [id number] [place] [address] November, Injury of left knee, subsequ ent encounter S89.92XD and Injury of left ankle, subsequent encounter S99.912D [facility] [address] [address] May, [facility] [address] [address] May, Mild episode of recurrent major depressi ve disorder F33.0 ; Elevated blood pressure reading R03.0 ; Screening for hyperlipidemia Z13.220 ; Screening for thyroid disorder Z13.29 ; Screening for diabetes mellitus Z13.1 and History of seizures Z87.898 [facility] [id number] [place] [id number] Jul, [facility] [address] [address] Oct, [facility] [address] [address] Oct, [facility] [address] [id number] Sep, [facility] [address] [id number] [place] [address] Sep, [facility] [address] [id number] [place] [address] Aug, [facility] [place] [address] [facility] [id number] Aug, [facility] [id number] [place] [address] Aug, [facility] [address] [id number] [place] [address] Aug, [facility] [place] [address] [id number] [id number] Aug, [facility] [address] [id number] [place] [address] Aug, [facility] [id number] [place] [address] Aug, [facility] [place] [address] [id number] [id number] Jul, [facility] [id number] [place] [address] Jul, [facility] [address] [id number] [place] [address] Jul, [facility] [address] [id number] [place] [address] Jul, [facility] [address] [id number] [id number] Jul, [facility] [address] [id number] [place] [address] Jul, [facility] [id number] [place] [address] Jun, [facility] [address] [id number] [place] [address] Jun, [facility] [place] [address] [id number] [id number] Jun, [facility] [address] [id number] [place] [address] Jun, [facility] [place] [address] [id number] [id number] Jun, [facility] [id number] [place] [address] Jun, [facility] [id number] [place] [address] Jun, [facility] [id number] [place] [address] May, [facility] [id number] [place] [address] May, [facility] [place] [address] [id number] [id number] May, [facility] [id number] [place] [address] May, [facility] [id number] [place] [address] Apr, [facility] [id number] [place] [address] Apr, [facility] [place] [address] [id number] [id number] Apr, [facility] [id number] [place] [address] Apr, [facility] [id number] [place] [address] Mar, [facility] [id number] [place] [address] Mar, [facility] [id number] [place] [address] Mar, [facility] [id number] [place] [address] Mar, [facility] [place] [address] [facility] [id number] Mar, [facility] [address] [id number] [place] [address] Mar, [facility] [address] [id number] [place] [id number] Mar, [facility] [address] [id number] [place] [address] Mar, [facility] [address] [id number] [place] [address] Feb, [facility] [address] [id number] [place] [address] Feb, [facility] [address] [id number] [place] [address] Feb, [facility] [address] [id number] [place] [address] Feb, [facility] [address] [id number] [place] [address] Feb, [facility] [address] [id number] [place] [address] Feb, [facility] [address] [facility] [id number] Feb, [facility] [address] [id number] [place] [address] Feb, [facility] [address] [id number] [place] [address] Jan, [facility] [address] [id number] [place] [address] Jan, [facility] [address] [id number] [place] [id number] Jan, [facility] [address] [id number] [place] [address] Jan, [facility] [address] [id number] [place] [address] Dec, [facility] [address] [facility] [address] Dec, [facility] [id number] [id number] November, [facility] [address] [id number] [place] [address] November, [facility] [address] [facility] [id number] November, [facility] [id number] [place] [address] November, [facility] [id number] [place] [address] Oct, [facility] [id number] [id number] Oct, [facility] [id number] [id number] Oct, [facility] [id number] [place] [address] Oct, [facility] [id number] [id number] Oct, [facility] [id number] [place] [address] Oct, [facility] [id number] [id number] Oct, [facility] [id number] [place] [address] Oct, [facility] [id number] [place] [address] Oct, [facility] [address] [id number] [address] Oct, [facility] [id number] [place] [address] Oct, [facility] [id number] [id number] Oct, [facility] [address] [facility] [id number] Sep, [facility] [id number] [place] [address] Sep, [facility] [id number] [place] [address] Sep, [facility] [id number] [id number] Sep, [facility] [id number] [id number] Sep, [facility] [id number] [place] [address] Sep, [facility] [id number] [id number] Aug, [facility] [id number] [place] [address] Aug, [facility] [id number] [id number] Aug, [facility] [id number] [place] [address] Aug, [facility] [id number] [place] [address] Aug, [facility] [id number] [place] [address] Aug, [facility] [address] [id number] [id number] Jul, [facility] [id number] [place] [address] Jul, [facility] [address] [id number] [address] Jun, [facility] [id number] [place] [address] Jun, [facility] [address] [id number] [address] May, [facility] [id number] [place] [address] May, [facility] [address] [facility] [id number] Apr, [facility] [id number] [place] [address] Apr, [facility] [address] [id number] [place] [id number] Mar, [facility] [place] [facility] [id number] [place] [address] Feb, [facility] [address] [facility] [id number] Feb, [facility] [id number] [id number] Feb, [facility] [id number] [id number] Feb, [facility] [place] [facility] [id number] [place] [address] Jan, [facility] [id number] [id number] Jan, [facility] [id number] [id number] Jan, [facility] [place] [facility] [id number] [place] [address] Jan, [facility] [id number] [id number] November, [facility] [id number] [id number] November, [facility] [place] [facility] [address] [id number] [place] [address] November, [facility] [id number] [id number] November, [facility] [id number] [id number] Oct, [facility] [id number] [id number] Oct, [facility] [id number] [id number] Sep, [facility] [address] [facility] [id number] Sep, [facility] [address] [facility] [id number] Aug, [facility] [address] [id number] [address] Jul, [facility] [place] [address] [facility] [id number] Jun, [facility] [address] [id number] [place] [address] Jun, [facility] [address] [id number] [place] [address] May, [facility] [id number] [place] [address] May, [facility] [address] [facility] [id number] May, [facility] [id number] [id number] May, [facility] [id number] [place] [address] May, [facility] [id number] [place] [address] May, [facility] [address] [facility] [address] May, [facility] [id number] [place] [address] May, [facility] [address] [facility] [id number] May, [facility] [address] [id number] [place] [address] May, [facility] [address] [facility] [id number] May, [facility] [address] [id number] [place] [address] May, [facility] [address] [facility] [address] May, [facility] [address] [id number] [place] [address] May, [facility] [address] [id number] [place] [address] Apr, [facility] [address] [id number] [place] [address] Apr, [facility] [place] [facility] [address] [id number] [place] [address] Apr, [facility] [place] [facility] [address] [id number] [place] [address] Apr, [facility] [id number] [place] [address], [place] [id number] Apr, [facility] [place] [facility] [address] [id number] [place] [address] Apr, [facility] [id number] [place] [address], [place] [id number] Apr, [facility] [id number] [place] [address], [place] [id number] Mar, [facility] [id number] [place] [address], [place] [id number] Mar, [facility] [address], [place] [id number] Feb, [facility] [id number] [id number] Jan, [facility] [address], [place] [id number] Dec, [facility] [id number] [place] [address], [place] [id number] Dec, [facility] [id number] [place] [address], [place] [id number] November, [facility] [address], [place] [id number] November, [facility] [id number] [place] [address], [place] [id number] November, [facility] [place] [facility] [id number] [place] [address] November, [facility] [id number] [id number] November, [facility] [id number] [place] [address], [place] [id number] November, [facility] [address], [place] [id number] November, [facility] [id number] [id number] Oct, [facility] [id number] [id number] Oct, [facility] [id number] [id number] Oct, [facility] [id number] [place] [address], [place] [id number] Oct, [facility] [id number] [address] Oct, [facility] [address] [address] Oct, [facility] [id number] [id number] Oct, [facility] [id number] [id number] Oct, [facility] [id number] [id number] Sep, [facility] [id number] [id number] Aug, [facility] [id number] [place] [address], [place] [id number] Aug, [facility] [id number] [id number] Jul, [facility] [id number] [id number] Jul, [facility] [id number] [place] [address] Jul, [facility] [id number] [place] [address], [place] [id number] Jul, [facility] [address] [address] Jun, [facility] [id number] [place] [address] Jun, [facility] [address] [address] May, [facility] [address] [id number] [place] [address] Apr, [facility] [address] [id number] [place] [address] 17 Apr, 2011 [facility] [address] [id number] [place] [address] Jan, [facility] [address] [id number] [place] [address] Dec, [facility] [address] [id number] [place] [address] Aug, [facility] [address] [id number] [place] [address] Jun, [facility] [address] [id number] [place] [address] Jun, [facility] [address] [id number] [place] [address] Jun, [facility] [address] [id number] [place] [address] Jun, [facility] [address] [id number] [place] [address] Jun, [facility] [address] [id number] [place] [address] 15 May, 2010 [facility] [address] [id number] [place] [address] 05 May, 2010 [facility] [address] [id number] [place] [address] May, [facility] [address] [id number] [place] [address] Apr, [facility] [address] [id number] [place] [address] Apr, [facility] [address] [id number] [place] [address] Apr, [facility] [address] [id number] [place] [address] 11 Apr, 2010 [facility] [address] [id number] [place] [address] 10 Mar, 2010 [facility] [address] [id number] [place] [address] Jun, [facility] [address] [id number] [place] [address] Jun, [facility] [address] [id number] [place] [address] Jun, IMMUNIZATIONS No Known Immunizations SOCIAL HISTORY [...]
--- OUTSIDE RECORDS SUMMARY | 2020-01-13 17:50 | XMS REPORT ---
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 Hoop Punch And Coiler Operator Helper Name Role Phone Migration, Doctor Unavailable Unavailable PROBLEMS Type Condition ICD9-CM Code XFL47-BF Code Onset Dates Condition S tatus SNOMED Code Problem ETOH abuse F10.10 Active 34065541 Problem Mild episode of recurrent major depressive disorder F33.0 Active [id number] ALLERGIES No Information ENCOUNTERS Encounter Location Date Diagnosis [facility] [address] [address] November, [facility] [address] [facility] [id number] [place] [address] November, Injury of left knee, subsequ ent encounter S89.92XD and Injury of left ankle, subsequent encounter S99.912D [facility] [address] [address] May, [facility] [address] [address] May, Mild episode of recurrent major depressi ve disorder F33.0 ; Elevated blood pressure reading R03.0 ; Screening for hyperlipidemia Z13.220 ; Screening for thyroid disorder Z13.29 ; Screening for diabetes mellitus Z13.1 and History of seizures Z87.898 [facility] [id number] [place] [id number] Jul, [facility] [address] [address] Oct, [facility] [address] [address] Oct, [facility] [address] [id number] [id number] Sep, [facility] [address] [address] Sep, [facility] [address] [id number] [place] [address] Aug, 2014 [facility] [place] [address] [id number] [id number] Aug, 2014 [facility] [address] [id number] [place] [address] Aug, 2014 [facility] [id number] [place] [address] Aug, 2014 [facility] [address] [facility] [id number] Aug, [facility] [id number] [place] [address] Aug, [facility] [id number] [place] [address] Aug, [facility] [place] [address] [id number] [id number] Jul, [facility] [address] [id number] [place] [address] Jul, [facility] [id number] [place] [address] Jul, [facility] [id number] [place] [address] Jul, [facility] [place] [address] [id number] [id number] Jul, [facility] [id number] [place] [address] Jul, [facility] [address] [id number] [place] [address] Jun, [facility] [id number] [place] [address] Jun, [facility] [address] [facility] [id number] Jun, [facility] [id number] [place] [address] Jun, [facility] [place] [address] [id number] [place] [id number] Jun, [facility] [id number] [place] [address] Jun, [facility] [id number] [place] [address] Jun, [facility] [id number] [place] [address] May, [facility] [id number] [place] [address] May, [facility] [place] [id number] [id number] May, [facility] [id number] [place] [address] May, [facility] [id number] [place] [address] Apr, [facility] [id number] [place] [address] Apr, [facility] [place] [id number] [id number] Apr, [facility] [id number] [place] [address] Apr, [facility] [id number] [place] [address] Mar, [facility] [id number] [place] [address] Mar, [facility] [id number] [place] [address] Mar, [facility] [id number] [place] [address] Mar, [facility] [address] [id number] [id number] Mar, [facility] [id number] [place] [address] Mar, [facility] [place] [address] [id number] [place] [id number] Mar, [facility] [address] [id number] [place] [address] Mar, [facility] [address] [id number] [place] [address] Feb, [facility] [address] [id number] [place] [address] Feb, [facility] [address] [id number] [place] [address] Feb, [facility] [address] [id number] [place] [address] Feb, [facility] [address] [id number] [place] [address] Feb, [facility] [address] [id number] [place] [address] Feb, [facility] [address] [facility] [id number] Feb, [facility] [address] [id number] [place] [address] Feb, [facility] [address] [id number] [place] [address] Jan, [facility] [address] [id number] [place] [address] Jan, [facility] [address] [facility] [id number] Jan, [facility] [address] [id number] [place] [address] Jan, [facility] [address] [id number] [place] [address] Dec, [facility] [place] [address] [facility] [id number] Dec, [facility] [place] [address] [facility] [id number] November, [facility] [address] [id number] [place] [address] November, [facility] [address] [facility] [place] [id number] November, [facility] [address] [id number] [place] [address] November, [facility] [address] [id number] [place] [address] Oct, [facility] [address] [facility] [place] [address] Oct, [facility] [address] [facility]757[facility] [place] [id number] Oct, [facility] [id number] [place] [address] Oct, [facility] [id number] [place] [address] Oct, [facility] [id number] [place] [address] Oct, [facility] [id number] [place] [address] Oct, [facility] [address] [id number] [place] [address] Oct, [facility] [address] [id number] [place] [address] Oct, [facility] [id number] [place] [id number] Oct, [facility] [address] [id number] [place] [address] Oct, [facility] [address] [facility] [place] [id number] Oct, [facility] [id number] [place] [address] Sep, [facility] [address] [id number] [place] [address] Sep, [facility] [address] [id number] [place] [address] Sep, [facility] [address] [facility]757[facility] [place] [address] Sep, [facility] [address] [facility]07757[facility] [place] [address] Sep, [facility] [id number] [place] [address] Sep, [facility] [id number] [place] [id number] Aug, [facility] [id number] [place] [address] Aug, [facility] [id number] [place] [id number] Aug, [facility] [id number] [place] [address] Aug, [facility] [id number] [place] [address] Aug, [facility] [id number] [place] [address] Aug, [facility] [address] [id number] [id number] Jul, [facility] [id number] [place] [address] Jul, [facility] [address] [id number] [id number] Jun, [facility] [id number] [place] [address] Jun, [facility] [address] [id number] [id number] May, [facility] [id number] [place] [address] May, [facility] [address] [id number] [id number] Apr, [facility] [id number] [place] [address] Apr, [facility] [address] [id number] [id number] Mar, [facility] [place] [facility] [id number] [place] [address] Feb, [facility] [id number] [place] [id number] Feb, [facility] [id number] [place] [address] Feb, [facility] [id number] [place] [address], [place] [id number] Feb, [facility] [place] [facility] [id number] [place] [address] Jan, [facility] [id number] [place] [address], [place] [id number] Jan, [facility] [id number] [place] [address], [place] [address] Jan, [facility] [id number] [place] [address] Jan, [facility] [id number] [place] [address], [place] [id number] November, [facility] [id number] [place] [address] November, [facility] [id number] [place] [address] November, [facility] [id number] [place] [id number] November, [facility] [id number] [place] [address] Oct, [facility] [id number] [place] [address], [place] [id number] Oct, [facility] [id number] [place] [id number] Sep, [facility] [id number] [place] [address], [place] [id number] Sep, [facility] [id number] [place] [id number] Aug, [facility] [id number] [place] [id number] Jul, [facility] [address], [place] [id number] 05 Jun, 2012 [facility] [address] [id number] [place] [address] Jun, [facility] [address] [id number] [place] [address] May, [facility] [address] [id number] [place] [address] May, [facility] [address] [id number] [id number] May, [facility] [id number] [place] [id number] May, [facility] [id number] [place] [address] May, [facility] [address] [id number] [place] [address] May, [facility] [id number] [place] [id number] May, [facility] [id number] [place] [address] May, [facility] [address] [id number] [id number] May, [facility] [address] [id number] [place] [address] May, [facility] [address] [id number] [id number] May, [facility] [id number] [place] [address] May, [facility] [address] [facility] [address] May, [facility] [id number] [place] [address] May, [facility] [address] [id number] [place] [address] Apr, [facility] [id number] [place] [address] Apr, [facility] [address] [id number] [place] [address] Apr, [facility] [address] [id number] [place] [address] Apr, [facility] [id number] [place] [id number] Apr, [facility] [id number] [place] [address] Apr, [facility] [id number] [place] [address], [place] [id number] Apr, [facility] [id number] [place] [address], [place] [id number] Mar, [facility] [id number] [place] [address], [place] [id number] Mar, [facility] [id number] [place] [address], [place] [id number] Feb, [facility] [address], [place] [id number] Jan, [facility] [id number] [place] [address], [place] [id number] Dec, [facility] [address], [place] [id number] Dec, [facility] [id number] [place] [address], [place] [id number] November, [facility] [id number] [place] [address], [place] [id number] November, [facility] [address], [place] [id number] November, [facility] [place] [facility] [address] [id number] [place] [address] November, [facility] [address], [place] [id number] November, [facility] [id number] [place] [address], [place] [id number] November, [facility] [address], [place] [id number] November, [facility] [address], [place] [id number] Oct, [facility] [address] [facility]07757[facility] [place] [id number] Oct, [facility] [id number] [place] [id number] Oct, [facility] [address] [facility]07757[facility] [place] [id number] Oct, [facility] [id number] [place] [address], [place] [id number] Oct, [facility] [id number] [place] [address] Oct, [facility] [id number] [place] [address] Oct, [facility] [id number] [place] [id number] Oct, [facility] [id number] [place] [id number] Sep, [facility] [id number] [place] [id number] Aug, [facility] [id number] [place] [id number] Aug, [facility] [id number] [place] [address], [place] [id number] Jul, [facility] [id number] [place] [id number] Jul, [facility] [id number] [place] [address] Jul, [facility] [id number] [place] [address], [place] [id number] Jul, [facility] [id number] [place] [address] Jun, [facility] [address] [address] Jun, [facility] [id number] [place] [address] May, [facility] [id number] [place] [address] Apr, [facility] [address] [id number] [place] [address] Apr, [facility] [address] [id number] [place] [address] Jan, [facility] [address] [id number] [place] [address] Dec, [facility] [address] [id number] [place] [address] Aug, [facility] [address] [id number] [place] [address] Jun, [facility] [address] [id number] [place] [address] Jun, [facility] [address] [id number] [place] [address] Jun, [facility] [address] [id number] [place] [address] Jun, [facility] [address] [id number] [place] [address] Jun, [facility] [address] [id number] [place] [address] 15 May, 2010 [facility] [address] [id number] [place] [address] May, [facility] [address] [id number] [place] [address] May, [facility] [address] [id number] [place] [address] Apr, [facility] [address] [id number] [place] [address] Apr, [facility] [address] [id number] [place] [address] Apr, [facility] [address] [id number] [place] [address] Apr, [facility] [address] [id number] [place] [address] 10 Mar, 2010 [facility] [address] [id number] [place] [address] Jun, [facility] [address] [id number] [place] [address] Jun, [facility] [address] [id number] [place] [address] Jun, IMMUNIZATIONS No Known Immunizations SOCIAL HISTORY [...]
--- OUTSIDE RECORDS SUMMARY | 2020-01-13 17:50 | XMS REPORT ---
Author Author Ina DEJESUS [address] Address [address] [place] [address] Care Team Providers Care Stem Roller Operator Name Role Phone SANDY DEJESUS Unavailable PROBLEMS Type Condition ICD9-CM Code GBI06-LV Code Onset Dates Condition S tatus SNOMED Code Problem ETOH abuse F10.10 Active 44075885 Problem Mild episode of recurrent major depressive disorder F33.0 Active [id number] ALLERGIES No Information ENCOUNTERS Encounter Location Date Diagnosis [facility] [address] [address] November, [facility] [address] [facility] [id number] [place] [address] November, Injury of left knee, subsequ ent encounter S89.92XD and Injury of left ankle, subsequent encounter S99.912D [facility] [address] [address] May, [facility] [address] [address] May, Mild episode of recurrent major depressi ve disorder F33.0 ; Elevated blood pressure reading R03.0 ; Screening for hyperlipidemia Z13.220 ; Screening for thyroid disorder Z13.29 ; Screening for diabetes mellitus Z13.1 and History of seizures Z87.898 [facility] [address] [id number] [place] [id number] Jul, [facility] [address] [address] Oct, [facility] [address] [address] Oct, [facility] [id number] [id number] Sep, [facility] [address] [id number] [place] [address] Sep, [facility] [id number] [place] [address] Aug, [facility] [place] [address] [id number] [id number] Aug, [facility] [id number] [place] [address] Aug, 2014 [facility] [id number] [place] [address] Aug, [facility] [place] [id number] [id number] Aug, [facility] [id number] [place] [address] Aug, [facility] [id number] [place] [address] Aug, [facility] [place] [address] [id number] [id number] Jul, [facility] [id number] [place] [address] Jul, [facility] [id number] [place] [address] Jul, [facility] [address] [id number] [place] [address] Jul, [facility] [place] [address] [id number] [id number] Jul, [facility] [id number] [place] [address] Jul, [facility] [id number] [place] [address] Jun, [facility] [id number] [place] [address] Jun, [facility] [place] [address] [facility] [id number] Jun, [facility] [address] [id number] [place] [address] Jun, [facility] [place] [address] [facility] [id number] Jun, [facility] [address] [id number] [place] [address] Jun, [facility] [address] [id number] [place] [address] Jun, [facility] [address] [id number] [place] [address] May, [facility] [address] [id number] [place] [address] May, [facility] [place] [address] [facility] [address] May, [facility] [address] [id number] [place] [address] May, [facility] [address] [id number] [place] [address] Apr, [facility] [address] [id number] [place] [address] Apr, [facility] [address] [facility] [id number] Apr, [facility] [address] [id number] [place] [address] Apr, [facility] [address] [id number] [place] [address] Mar, [facility] [address] [id number] [place] [address] Mar, [facility] [address] [id number] [place] [address] Mar, [facility] [address] [id number] [place] [address] Mar, [facility] [address] [id number] [place] [id number] Mar, [facility] [address] [id number] [place] [address] Mar, [facility] [place] [address] [id number] [place] [id number] Mar, [facility] [address] [id number] [place] [address] Mar, [facility] [address] [id number] [place] [address] Feb, [facility] [address] [id number] [place] [address] Feb, [facility] [address] [id number] [place] [address] Feb, [facility] [address] [id number] [place] [address] Feb, [facility] [address] [id number] [place] [address] Feb, [facility] [address] [id number] [place] [address] Feb, [facility] [address] [facility] [address] Feb, [facility] [address] [id number] [place] [address] Feb, [facility] [address] [id number] [place] [address] Jan, [facility] [address] [id number] [place] [address] Jan, [facility] [address] [id number] [place] [address] Jan, [facility] [address] [id number] [place] [address] Jan, [facility] [address] [id number] [place] [address] Dec, [facility] [address] [facility] [id number] Dec, [facility] [address] [facility] [id number] November, [facility] [address] [id number] [place] [address] November, [facility] [address] [facility] [id number] November, [facility] [address] [id number] [place] [address] November, [facility] [id number] [place] [address] Oct, [facility] [address] [facility] [id number] Oct, [facility] [address] [facility] [id number] Oct, [facility] [address] [id number] [place] [address] Oct, [facility] [address] [facility] [id number] Oct, [facility] [address] [id number] [place] [address] Oct, [facility] [address] [facility] [id number] Oct, [facility] [address] [id number] [place] [address] Oct, [facility] [address] [id number] [place] [address] Oct, [facility] [address] [facility] [address] Oct, [facility] [address] [id number] [place] [address] Oct, [facility] [address] [id number] [id number] Oct, [facility] [address] [facility] [id number] Sep, [facility] [address] [id number] [place] [address] Sep, [facility] [id number] [place] [address] Sep, [facility] [address] [facility]757[facility] [id number] Sep, [facility] [id number] [address]82 Sep, [facility] [id number] [place] [address] Sep, [facility] [id number] [id number] Aug, [facility] [id number] [place] [address] Aug, [facility] [id number] [id number] Aug, [facility] [id number] [place] [address] Aug, [facility] [id number] [place] [address] Aug, [facility] [id number] [place] [address] Aug, [facility] [id number] [id number] Jul, [facility] [id number] [place] [address] Jul, [facility] [address] [facility] [id number] Jun, [facility] [id number] [place] [address] Jun, [facility] [id number] [id number] May, [facility] [id number] [place] [address] May, [facility] [address] [facility] [id number] Apr, [facility] [id number] [place] [address] Apr, [facility] [address] [facility]757[facility] [id number] Mar, [facility] [place] [facility] [id number] [place] [address] Feb, [facility] [id number] [id number] Feb, [facility] [id number] [id number] Feb, [facility] [id number] [place] [address], [place] [id number] Feb, [facility] [place] [facility] [id number] [place] [address] Jan, [facility] [id number] [id number] Jan, [facility] [id number] [place] [address], [place] [id number] Jan, [facility] [id number] [place] [address] Jan, [facility] [id number] [id number] November, [facility] [id number] [place] [address], [place] [id number] November, [facility] [place] [facility] [id number] [place] [address] November, [facility] [id number] [id number] November, [facility] [id number] [place] [address], [place] [id number] Oct, [facility] [id number] [place] [address], [place] [id number] Oct, [facility] [id number] [place] [address], [place] [id number] Sep, [facility] [id number] [place] [address], [place] [id number] Sep, [facility] [id number] [place] [address], [place] [id number] Aug, [facility] [address], [place] [id number] Jul, [facility] [address] [facility]07757[facility] [id number] Jun, [facility] [address] [id number] [place] [address] Jun, [facility] [address] [id number] [place] [address] May, [facility] [id number] [place] [address] May, [facility] [id number] [id number] May, [facility] [id number] [id number] May, [facility] [id number] [place] [address] May, [facility] [id number] [place] [address] May, [facility] [id number] [id number] May, [facility] [id number] [place] [address] May, [facility] [id number] [id number] May, [facility] [address] [id number] [place] [address] May, [facility] [id number] [id number] May, [facility] [address] [id number] [place] [address] May, [facility] [address] [id number] [id number] May, [facility] [address] [id number] [place] [address] May, [facility] [address] [id number] [place] [address] Apr, [facility] [address] [id number] [place] [address] Apr, [facility] [address] [id number] [place] [address] Apr, [facility] [address] [id number] [place] [address] Apr, [facility] [id number] [place] [address], [place] [id number] Apr, [facility] [id number] [place] [address] Apr, [facility] [id number] [place] [address], [place] [id number] Apr, [facility] [address], [place] [id number] Mar, [facility] [id number] [place] [address], [place] [id number] Mar, [facility] [address], [place] [id number] Feb, [facility] [id number] [place] [address], [place] [id number] Jan, [facility] [address], [place] [id number] Dec, [facility] [id number] [place] [address], [place] [id number] Dec, [facility] [id number] [place] [address], [place] [id number] November, [facility] [address], [place] [id number] November, [facility] [id number] [place] [address], [place] [id number] November, [facility] [address] [id number] [place] [address] November, [facility] [id number] [place] [address], [place] [id number] November, [facility] [address], [place] [id number] November, [facility] [address], [place] [id number] November, [facility] [id number] [id number] Oct, [facility] [id number] [place] [address], [place] [id number] Oct, [facility] [id number] [place] [id number] Oct, [facility] [id number] [place] [address], [place] [id number] Oct, [facility] [address], [place] [id number] Oct, [facility] [id number] [place] [address] Oct, [facility] [address] [id number] [id number] Oct, [facility] [address] [id number] [id number] Oct, [facility] [id number] [place] [address], [place] [id number] Sep, [facility] [id number] [place] [address], [place] [id number] Aug, [facility] [id number] [place] [address], [place] [id number] Aug, [facility] [id number] [place] [address], [place] [id number] Jul, [facility] [id number] [place] [address], [place] [id number] Jul, [facility] [place] [facility] [id number] [place] [address] Jul, [facility] [id number] [place] [address], [place] [id number] Jul, [facility] [address] [address] Jun, [facility] [place] [facility] [id number] [place] [address] Jun, [facility] [address] [address] May, [facility] [address] [id number] [place] [address] Apr, [facility] [address] [id number] [place] [address] Apr, [facility] [address] [id number] [place] [address] Jan, [facility] [address] [id number] [place] [address] Dec, [facility] [address] [id number] [place] [address] Aug, [facility] [address] [id number] [place] [address] Jun, [facility] [address] [id number] [place] [address] Jun, [facility] [id number] [place] [address] Jun, [facility] [address] [id number] [place] [address] Jun, [facility] [address] [id number] [place] [address] Jun, [facility] [address] [id number] [place] [address] May, [facility] [address] [id number] [place] [address] May, [facility] [address] [id number] [place] [address] May, [facility] [address] [id number] [place] [address] Apr, [facility] [address] [id number] [place] [address] Apr, [facility] [address] [id number] [place] [address] Apr, [facility] [address] [id number] [place] [address] Apr, [facility] [address] [id number] [place] [address] Mar, [facility] [address] [id number] [place] [address] Jun, [facility] [address] [id number] [place] [address] Jun, [facility] [address] [id number] [place] [address] Jun, IMMUNIZATIONS No Known Immunizations SOCIAL HISTORY [...]
--- OUTSIDE RECORDS SUMMARY | 2020-01-13 17:50 | XMS REPORT ---
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 Name Role Phone SANDY DEJESUS Unavailable PROBLEMS Type Condition ICD9-CM Code [id number] Code Onset Dates Condition S tatus SNOMED Code Problem ETOH abuse F10.10 Active 92233010 Problem Mild episode of recurrent major depressive disorder F33.0 Active [id number] ALLERGIES No Information ENCOUNTERS Encounter Location Date Diagnosis [facility] [address] [address] November, [facility] [address] [facility] [id number] [address] November, Injury of left knee, subsequ ent encounter S89.92XD and Injury of left ankle, subsequent encounter S99.912D [facility] [address] [address] May, [facility] [address] [address] May, Mild episode of recurrent major depressi ve disorder F33.0 ; Elevated blood pressure reading R03.0 ; Screening for hyperlipidemia Z13.220 ; Screening for thyroid disorder Z13.29 ; Screening for diabetes mellitus Z13.1 and History of seizures Z87.898 [facility] [address] [id number] [place] [id number] Jul, [facility] [address] [address] Oct, [facility] [address] [address] Oct, [facility] [id number] [place] [id number] Sep, [facility] [address] [id number] [place] [address] Sep, [facility] [id number] [place] [address] Aug, [facility] [place] [address] [id number] [id number] Aug, [facility] [id number] [place] [address] Aug, 2014 [facility] [id number] [place] [address] Aug, [facility] [place] [address] [id number] [id number] Aug, [facility] [id number] [place] [address] Aug, [facility] [id number] [place] [address] Aug, [facility] [place] [address] [id number] [id number] Jul, [facility] [id number] [place] [address] Jul, [facility] [id number] [place] [address] Jul, [facility] [address] [id number] [place] [address] Jul, [facility] [place] [address] [id number] [id number] Jul, [facility] [id number] [place] [address] Jul, [facility] [id number] [place] [address] Jun, [facility] [id number] [place] [address] Jun, [facility] [place] [address] [facility] [id number] Jun, [facility] [address] [id number] [place] [address] Jun, [facility] [place] [address] [facility] [id number] Jun, [facility] [address] [id number] [place] [address] Jun, [facility] [address] [id number] [place] [address] Jun, [facility] [address] [id number] [place] [address] May, [facility] [address] [id number] [place] [address] May, [facility] [address] [facility] [id number] May, [facility] [address] [id number] [place] [address] May, [facility] [address] [id number] [place] [address] Apr, [facility] [address] [id number] [place] [address] Apr, [facility] [address] [facility] [id number] Apr, [facility] [address] [id number] [place] [address] Apr, [facility] [address] [id number] [place] [address] Mar, [facility] [address] [id number] [place] [address] Mar, [facility] [address] [id number] [place] [address] Mar, [facility] [address] [id number] [place] [address] Mar, [facility] [address] [id number] [place] [id number] Mar, [facility] [address] [id number] [place] [address] Mar, [facility] [place] [address] [id number] [place] [id number] Mar, [facility] [address] [id number] [place] [address] Mar, [facility] [address] [id number] [place] [address] Feb, [facility] [address] [id number] [place] [address] Feb, [facility] [address] [id number] [place] [address] Feb, [facility] [address] [id number] [place] [address] Feb, [facility] [address] [id number] [place] [address] Feb, [facility] [address] [id number] [place] [address] Feb, [facility] [address] [facility] [id number] Feb, [facility] [address] [id number] [place] [address] Feb, [facility] [address] [id number] [place] [address] Jan, [facility] [address] [id number] [place] [address] Jan, [facility] [address] [id number] [place] [id number] Jan, [facility] [address] [id number] [place] [address] Jan, [facility] [address] [id number] [place] [address] Dec, [facility] [address] [facility] [id number] Dec, [facility] [address] [facility] [id number] November, [facility] [address] [id number] [place] [address] November, [facility] [address] [facility] [id number] November, [facility] [address] [id number] [place] [address] November, [facility] [id number] [place] [address] Oct, [facility] [address] [facility] [id number] Oct, [facility] [address] [facility] [id number] Oct, [facility] [address] [id number] [place] [address] Oct, [facility] [address] [facility] [id number] Oct, [facility] [address] [id number] [place] [address] Oct, [facility] [address] [facility]757[facility] [id number] Oct, [facility] [address] [id number] [place] [address] Oct, [facility] [address] [id number] [place] [address] Oct, [facility] [address] [facility] [address] Oct, [facility] [address] [id number] [place] [address] Oct, [facility] [address] [facility]757[facility] [id number] Oct, [facility] [address] [facility] [id number] Sep, [facility] [address] [id number] [place] [address] Sep, [facility] [id number] [place] [address] Sep, [facility] [address] [facility]07757[facility] [id number] Sep, [facility] [id number] [id number] Sep, [facility] [id number] [place] [address] Sep, [facility] [id number] [id number] Aug, [facility] [id number] [place] [address] Aug, [facility] [id number] [id number] Aug, [facility] [id number] [place] [address] Aug, [facility] [id number] [place] [address] Aug, [facility] [id number] [place] [address] Aug, [facility] [address] [id number] [id number] Jul, [facility] [id number] [place] [address] Jul, [facility] [address] [facility] [id number] Jun, [facility] [id number] [place] [address] Jun, [facility] [address] [id number] [id number] May, [facility] [id number] [place] [address] May, [facility] [address] [facility]07[address] [address] Apr, [facility] [id number] [place] [address] Apr, [facility] [address] [facility]07757[facility] [id number] Mar, [facility] [place] [facility] [id number] [place] [address] Feb, [facility] [id number] [id number] Feb, [facility] [id number] [id number] Feb, [facility] [id number] [place] [address], [place] [id number] Feb, [facility] [place] [facility] [id number] [place] [address] Jan, [facility] [id number] [id number] Jan, [facility] [id number] [place] [address], [place] [id number] Jan, [facility] [id number] [place] [address] Jan, [facility] [id number] [id number] November, [facility] [id number] [place] [address], [place] [id number] November, [facility] [place] [facility] [id number] [place] [address] November, [facility] [id number] [id number] November, [facility] [id number] [place] [address], [place] [id number] Oct, [facility] [id number] [place] [address], [place] [id number] Oct, [facility] [id number] [place] [address], [place] [id number] Sep, [facility] [id number] [place] [address], [place] [id number] Sep, [facility] [id number] [place] [address], [place] [id number] Aug, [facility] [address], [place] [id number] Jul, [facility] [address] [facility]07757[facility] [id number] Jun, [facility] [address] [id number] [place] [address] Jun, [facility] [address] [id number] [place] [address] May, [facility] [id number] [place] [address] May, [facility] [id number] [id number] May, [facility] [place] [id number] [id number] May, [facility] [id number] [place] [address] May, [facility] [id number] [place] [address] May, [facility] [address] [id number] [id number] May, [facility] [id number] [place] [address] May, [facility] [address] [id number] [id number] May, [facility] [address] [id number] [place] [address] May, [facility] [address] [id number] [id number] May, [facility] [address] [id number] [place] [address] May, [facility] [address] [facility]07[address] [id number] May, [facility] [address] [id number] [place] [address] May, [facility] [address] [id number] [place] [address] Apr, [facility] [address] [id number] [place] [address] Apr, [facility] [address] [id number] [place] [address] Apr, [facility] [address] [id number] [place] [address] Apr, [facility] [id number] [place] [address], [place] [id number] Apr, [facility] [id number] [place] [address] Apr, [facility] [id number] [place] [address], [place] [id number] Apr, [facility] [address], [place] [id number] Mar, [facility] [id number] [place] [address], [place] [id number] Mar, [facility] [address], [place] [id number] Feb, [facility] [id number] [place] [address], [place] [id number] Jan, [facility] [address], [place] [id number] Dec, [facility] [id number] [place] [address], [place] [id number] Dec, [facility] [id number] [place] [address], [place] [id number] November, [facility] [address], [place] [id number] November, [facility] [id number] [place] [address], [place] [id number] November, [facility] [address] [id number] [place] [address] November, [facility] [id number] [place] [address], [place] [id number] November, [facility] [address], [place] [id number] November, [facility] [address], [place] [id number] November, [facility] [id number] [place] [id number] Oct, [facility] [id number] [place] [address], [place] [id number] Oct, [facility] [id number] [place] [id number] Oct, [facility] [id number] [place] [address], [place] [id number] Oct, [facility] [address], [place] [id number] Oct, [facility] [id number] [place] [address] Oct, [facility] [id number] [place] [id number] Oct, [facility] [address] [id number] [place] [id number] Oct, [facility] [id number] [place] [address], [place] [id number] Sep, [facility] [id number] [place] [address], [place] [id number] Aug, [facility] [id number] [place] [address], [place] [id number] Aug, [facility] [id number] [place] [address], [place] [id number] Jul, [facility] [id number] [place] [address], [place] [id number] Jul, [facility] [place] [facility] [id number] [place] [address] Jul, [facility] [id number] [place] [address], [place] [id number] Jul, [facility] [address] [address] Jun, [facility] [place] [facility] [id number] [place] [address] Jun, [facility] [address] [address] May, [facility] [address] [id number] [place] [address] Apr, [facility] [address] [id number] [place] [address] Apr, [facility] [address] [id number] [place] [address] Jan, [facility] [address] [id number] [place] [address] Dec, [facility] [address] [id number] [place] [address] Aug, [facility] [address] [id number] [place] [address] Jun, [facility] [address] [id number] [place] [address] Jun, [facility] [id number] [place] [address] Jun, [facility] [address] [id number] [place] [address] Jun, [facility] [address] [id number] [place] [address] Jun, [facility] [address] [id number] [place] [address] May, [facility] [address] [id number] [place] [address] May, [facility] [address] [id number] [place] [address] May, [facility] [address] [id number] [place] [address] Apr, [facility] [address] [id number] [place] [address] Apr, [facility] [address] [id number] [place] [address] Apr, [facility] [address] [id number] [place] [address] Apr, [facility] [address] [facility] [id number] [place] [address] Mar, [facility] [address] [id number] [place] [address] Jun, [facility] [address] [id number] [place] [address] 14 Jun, 2009 [facility] [address] [id number] [place] [address] Jun, IMMUNIZATIONS No Known Immunizations SOCIAL HISTORY Never Assessed REASON FOR VISIT PLAN OF CARE VITAL SIGNS Height 63 in 2013-09-07 Weight 137.38 lbs 2013-09-07 Temperature 98.9 degrees Fahrenheit 2013-09-07 Heart Rate 80 bpm 2013-09-07 Respiratory Rate 12 2013-09-07 Blood pressure systolic 100 mmHg 2013-09-07 Blood pressure diastolic 70 mmHg 2013-09-07 MEDICATIONS Unknown Medications RESULTS No Results PROCEDURES Procedure Date Ordered Result Body Site URINE TEST Sep 07, 2013 DRUG SCREEN, QUALITATE/MULTI Sep 07, 2013 INSTRUCTIONS MEDICATIONS ADMINISTERED No Known Medications [...]
--- OUTSIDE RECORDS SUMMARY | 2020-01-13 17:51 | XMS REPORT ---
Author Author Ina Lucia Organization [facility] Address [address] [place] [address] Care Team Providers Care Information Resources Manager Name Role Phone TEJAL Lucia Unavailable PROBLEMS Type Condition ICD9-CM Code AAN91-HR Code Onset Dates Condition S tatus SNOMED Code Problem ETOH abuse F10.10 Active 88118069 Problem Mild episode of recurrent major depressive disorder F33.0 Active [id number] ALLERGIES No Information ENCOUNTERS Encounter Location Date Diagnosis [facility] [address] [address] November, [facility] [address] [facility] [id number] [address] [address] November, Injury of left knee, subsequ ent encounter S89.92XD and Injury of left ankle, subsequent encounter S99.912D [facility] [address] [address] May, [facility] [address] [address] May, Mild episode of recurrent major depressi ve disorder F33.0 ; Elevated blood pressure reading R03.0 ; Screening for hyperlipidemia Z13.220 ; Screening for thyroid disorder Z13.29 ; Screening for diabetes mellitus Z13.1 and History of seizures Z87.898 [facility] [id number] [place] [id number] Jul, [facility] [address] [address] Oct, [facility] [address] [address] Oct, [facility] [address] [id number] Sep, [facility] [address] [id number] [place] [address] Sep, [facility] [address] [id number] [place] [address] Aug, [facility] [place] [address] [facility] [id number] Aug, [facility] [id number] [place] [address] Aug, [facility] [address] [id number] [place] [address] Aug, [facility] [place] [address] [id number] [id number] Aug, [facility] [address] [id number] [place] [address] Aug, [facility] [id number] [place] [address] Aug, [facility] [place] [id number] [id number] Jul, [facility] [id number] [place] [address] Jul, [facility] [address] [id number] [place] [address] Jul, [facility] [address] [id number] [place] [address] Jul, [facility] [place] [id number] [id number] Jul, [facility] [address] [id number] [place] [address] Jul, [facility] [id number] [place] [address] Jun, [facility] [address] [id number] [place] [address] Jun, [facility] [place] [id number] [id number] Jun, [facility] [address] [id number] [place] [address] Jun, [facility] [place] [id number] [id number] Jun, [facility] [address] [id number] [place] [address] Jun, [facility] [id number] [place] [address] Jun, [facility] [address] [id number] [place] [address] May, [facility] [id number] [place] [address] May, [facility] [place] [id number] [id number] May, [facility] [id number] [place] [address] May, [facility] [id number] [place] [address] Apr, [facility] [address] [id number] [place] [address] Apr, [facility] [place] [id number] [id number] Apr, [facility] [address] [id number] [place] [address] Apr, [facility] [address] [id number] [place] [address] Mar, [facility] [address] [id number] [place] [address] Mar, [facility] [id number] [place] [address] Mar, [facility] [address] [id number] [place] [address] Mar, [facility] [place] [id number] [id number] Mar, [facility] [address] [id number] [place] [address] Mar, [facility] [place] [address] [id number] [place] [id number] Mar, [facility] [address] [id number] [place] [address] Mar, [facility] [address] [id number] [place] [address] Feb, [facility] [address] [id number] [place] [address] Feb, [facility] [address] [id number] [place] [address] Feb, [facility] [address] [id number] [place] [address] Feb, [facility] [address] [id number] [place] [address] Feb, [facility] [address] [id number] [place] [address] Feb, [facility] [place] [address] [id number] [id number] Feb, [facility] [address] [id number] [place] [address] Feb, [facility] [address] [id number] [place] [address] Jan, [facility] [address] [id number] [place] [address] Jan, [facility] [place] [address] [id number] [place] [id number] Jan, [facility] [address] [id number] [place] [address] Jan, [facility] [address] [id number] [place] [address] Dec, [facility] [place] [address] [facility] [id number] Dec, [facility] [place] [id number] [id number] November, [facility] [address] [id number] [place] [address] November, [facility] [place] [address] [id number] [id number] November, [facility] [id number] [place] [address] November, [facility] [id number] [place] [address] Oct, [facility] [place] [id number] [id number] Oct, [facility] [place] [id number] [place] [address], [place] [id number] Oct, [facility] [id number] [place] [address] Oct, [facility] [place] [id number] [id number] Oct, [facility] [id number] [place] [address] Oct, [facility] [place] [id number] [id number] Oct, [facility] [id number] [place] [address] Oct, [facility] [id number] [place] [address] Oct, [facility] [place] [id number] [address] Oct, [facility] [id number] [place] [address] Oct, [facility] [place] [id number] [id number] Oct, [facility] [place] [id number] [address] Sep, [facility] [address] [id number] [place] [address] Sep, [facility] [address] [id number] [place] [address] Sep, [facility] [place] [address] [facility]07757[facility] [id number] Sep, [facility] [place] [id number] [id number] Sep, [facility] [id number] [place] [address] Sep, [facility] [place] [id number] [id number] Aug, [facility] [id number] [place] [address] Aug, [facility] [place] [id number] [id number] Aug, [facility] [id number] [place] [address] Aug, [facility] [id number] [place] [address] Aug, [facility] [id number] [place] [address] Aug, [facility] [place] [id number] [address] Jul, [facility] [id number] [place] [address] Jul, [facility] [place] [id number] [address] Jun, [facility] [id number] [place] [address] Jun, [facility] [place] [id number] [address] May, [facility] [id number] [place] [address] May, [facility] [place] [address] [facility]07757[place] [id number] Apr, [facility] [id number] [place] [address] Apr, [facility] [place] [id number] [id number] Mar, [facility] [place] [id number] [place] [address] Feb, [facility] [place] [id number] [id number] Feb, [facility] [place] [id number] [place] [address], [place] [id number] Feb, [facility] [place] [id number] [id number] Feb, [facility] [place] [id number] [place] [address] Jan, [facility] [place] [id number] [id number] Jan, [facility] [place] [id number] [place] [id number] Jan, [facility] [place] [id number] [place] [address] Jan, [facility] [place] [id number] [id number] November, [facility] [place] [id number] [id number] November, [facility] [place] [id number] [place] [address] November, [facility] [place] [id number] [id number] November, [facility] [place] [id number] [id number] Oct, [facility] [place] [id number] [id number] Oct, [facility] [place] [id number] [place] [address], [place] [id number] Sep, [facility] [place] [id number] [address] Sep, [facility] [place] [id number] [id number] Aug, [facility] [place] [address] [id number] [id number] Jul, [facility] [place] [address] [facility]07757[facility] [address]76112572 Jun, [facility] [address] [id number] [place] [address] Jun, [facility] [id number] [place] [address] May, [facility] [id number] [place] [address] May, [facility] [place] [id number] [id number] May, [facility] [place] [id number] [id number] May, [facility] [id number] [place] [address] May, [facility] [id number] [place] [address] May, [facility] [place] [id number] [address] May, [facility] [id number] [place] [address] May, [facility] [place] [id number] [address] May, [facility] [id number] [place] [address] May, [facility] [place] [id number] [address]242 May, [facility] [id number] [place] [address] May, [facility] [place] [id number] [address]800 May, [facility] [address] [id number] [place] [address] May, [facility] [id number] [place] [address] Apr, [facility] [place] [address] [id number] [place] [address] Apr, [facility] [place] [address] [id number] [place] [address] Apr, [facility] [place] [address] [id number] [place] [address] Apr, [facility] [place] [id number] [place] [address], [place] [id number] Apr, [facility] [place] [id number] [place] [address] Apr, [facility] [place] [id number] [place] [address], [place] [id number] Apr, [facility] [place] [address], [place] [id number] Mar, [facility] [place] [id number] [place] [address], [place] [id number] Mar, [facility] [place] [address], [place] [id number] Feb, [facility] [place] [id number] [place] [address], [place] [id number] Jan, [facility] [place] [address] [id number] Dec, [facility] [place] [id number] [place] [address], [place] [id number] Dec, [facility] [place] [id number] [place] [id number] November, [facility] [place] [address], [place] [id number] November, [facility] [place] [id number] [place] [address], [place] [id number] November, [facility] [place] [id number] [place] [address] November, [facility] [place] [id number] [place] [address], [place] [id number] November, [facility] [place] [id number] [place] [address], [place] [id number] November, [facility] [place] [address] [place] [id number] November, [facility] [place] [id number] [place] [id number] Oct, [facility] [place] [id number] [id number] Oct, [facility] [place] [address] [id number] [id number] Oct, [facility] [place] [id number] [place] [address], [place] [id number] Oct, [facility] [place] [id number] [place] [address], [place] [id number] Oct, [facility] [address] [address] Oct, [facility] [place] [address] [id number] [id number] Oct, [facility] [place] [address] [id number] [id number] Oct, [facility] [place] [id number] [place] [address], [place] [id number] Sep, [facility] [place] [id number] [place] [address], [place] [id number] Aug, [facility] [place] [id number] [place] [address], [place] [id number] Aug, [facility] [place] [address] [id number] [id number] Jul, [facility] [place] [id number] [place] [address], [place] [id number] Jul, [facility] [id number] [place] [address] Jul, [facility] [place] [id number] [place] [address] [id number] Jul, [facility] [address] [address] Jun, [facility] [address] [address] Jun, [facility] [address] [address] May, [facility] [address] [id number] [place] [address] Apr, [facility] [address] [id number] [place] [address] Apr, [facility] [address] [id number] [place] [address] Jan, [facility] [address] [id number] [place] [address] Dec, [facility] [address] [id number] [place] [address] Aug, [facility] [address] [id number] [place] [address] Jun, [facility] [address] [id number] [place] [address] Jun, [facility] [address] [id number] [place] [address] Jun, [facility] [address] [id number] [place] [address] Jun, [facility] [address] [id number] [place] [address] Jun, [facility] [address] [id number] [place] [address] 15 May, 2010 [facility] [address] [id number] [place] [address] 05 May, 2010 [facility] [address] [id number] [place] [address] May, [facility] [address] [id number] [place] [address] 18 Apr, 2010 [facility] [address] [id number] [place] [address] Apr, [facility] [address] [id number] [place] [address] Apr, [facility] [address] [id number] [place] [address] 11 Apr, 2010 [facility] [address] [id number] [place] [address] 10 Mar, 2010 [facility] [address] [id number] [place] [address] 17 Jun, 2009 [facility] [id number] [place] [address] Jun, [facility] [address] [id number] [place] [address] Jun, IMMUNIZATIONS No Known Immunizations SOCIAL HISTORY [...]
--- OUTSIDE RECORDS SUMMARY | 2020-01-13 17:51 | XMS REPORT ---
Author Author Ina DEJESUS [address] Address [address] [place] [address] Care Team Providers Care Printed [employer] Bo[employer] Pinner Name Role Phone SANDY DEJESUS Unavailable PROBLEMS Type Condition ICD9-CM Code OXY03-BI Code Onset Dates Condition S tatus SNOMED Code Problem ETOH abuse F10.10 Active 54158669 Problem Mild episode of recurrent major depressive disorder F33.0 Active [id number] ALLERGIES No Information ENCOUNTERS Encounter Location Date Diagnosis [facility] [address] [address] November, [facility] [address] [facility] [id number] [place], [place] [address] November, Injury of left knee, subsequ ent encounter S89.92XD and Injury of left ankle, subsequent encounter S99.912D [facility] [address] [address] May, [facility] [address] [address] May, Mild episode of recurrent major depressi ve disorder F33.0 ; Elevated blood pressure reading R03.0 ; Screening for hyperlipidemia Z13.220 ; Screening for thyroid disorder Z13.29 ; Screening for diabetes mellitus Z13.1 and History of seizures Z87.898 [facility] [address] [id number] [place] [id number] Jul, [facility] [address] [address] Oct, [facility] [address] [address] Oct, [facility] [id number] [place] [id number] Sep, [facility] [address] [id number] [place] [address] Sep, [facility] [id number] [place] [address] Aug, [facility] [place] [address] [id number] [id number] Aug, [facility] [id number] [place] [address] Aug, 2014 [facility] [id number] [place] [address] Aug, [facility] [place] [address] [id number] [id number] Aug, [facility] [id number] [place] [address] Aug, [facility] [id number] [place] [address] Aug, [facility] [place] [address] [id number] [id number] Jul, [facility] [id number] [place] [address] Jul, [facility] [id number] [place] [address] Jul, [facility] [address] [id number] [place] [address] Jul, [facility] [place] [address] [id number] [id number] Jul, [facility] [id number] [place] [address] Jul, [facility] [id number] [place] [address] Jun, [facility] [id number] [place] [address] Jun, [facility] [place] [address] [facility] [id number] Jun, [facility] [address] [id number] [place] [address] Jun, [facility] [place] [address] [facility] [id number] Jun, [facility] [address] [id number] [place] [address] Jun, [facility] [address] [id number] [place] [address] Jun, [facility] [address] [id number] [place] [address] May, [facility] [address] [id number] [place] [address] May, [facility] [place] [address] [facility] [id number] May, [facility] [address] [id number] [place] [address] May, [facility] [address] [id number] [place] [address] Apr, [facility] [address] [id number] [place] [address] Apr, [facility] [address] [facility] [id number] Apr, [facility] [address] [id number] [place] [address] Apr, [facility] [address] [id number] [place] [address] Mar, [facility] [address] [id number] [place] [address] Mar, [facility] [address] [id number] [place] [address] Mar, [facility] [address] [id number] [place] [address] Mar, [facility] [address] [facility] [place] [id number] Mar, [facility] [address] [id number] [place] [address] Mar, [facility] [place] [address] [facility] [place] [id number] Mar, [facility] [address] [id number] [place] [address] Mar, [facility] [address] [id number] [place] [address] Feb, [facility] [address] [id number] [place] [address] Feb, [facility] [address] [id number] [place] [address] Feb, [facility] [address] [id number] [place] [address] Feb, [facility] [address] [id number] [place] [address] Feb, [facility] [address] [id number] [place] [address] Feb, [facility] [address] [facility] [id number] Feb, [facility] [address] [id number] [place] [address] Feb, [facility] [address] [id number] [place] [address] Jan, [facility] [address] [id number] [place] [address] Jan, [facility] [address] [facility] [place] [id number] Jan, [facility] [address] [id number] [place] [address] Jan, [facility] [address] [id number] [place] [address] Dec, [facility] [address] [facility] [id number] Dec, [facility] [address] [facility] [id number] November, [facility] [address] [id number] [place] [address] November, [facility] [address] [facility] [id number] November, [facility] [address] [id number] [place] [address] November, [facility] [id number] [place] [address] Oct, [facility] [address] [facility] [id number] Oct, [facility] [address] [facility] [place] [id number] Oct, [facility] [address] [id number] [place] [address] Oct, [facility] [address] [facility] [id number] Oct, [facility] [address] [id number] [place] [address] Oct, [facility] [address] [facility] [address] Oct, [facility] [address] [id number] [place] [address] Oct, [facility] [address] [id number] [place] [address] Oct, [facility] [address] [facility] [id number] Oct, [facility] [address] [id number] [place] [address] Oct, [facility] [address] [facility] [id number] Oct, [facility] [address] [facility] [address] Sep, [facility] [address] [id number] [place] [address] Sep, [facility] [id number] [place] [address] Sep, [facility] [address] [facility]757[facility] [id number] Sep, [facility] [id number] [id number] Sep, [facility] [id number] [place] [address] Sep, [facility] [id number] [id number] Aug, [facility] [id number] [place] [address] Aug, [facility] [id number] [address] Aug, [facility] [id number] [place] [address] Aug, [facility] [id number] [place] [address] Aug, [facility] [id number] [place] [address] Aug, [facility] [address] [id number] [id number] Jul, [facility] [id number] [place] [address] Jul, [facility] [address] [facility] [address] Jun, [facility] [id number] [place] [address] Jun, [facility] [address] [id number] [id number] May, [facility] [id number] [place] [address] May, [facility] [address] [facility] [id number] Apr, [facility] [id number] [place] [address] Apr, [facility] [address] [facility]757[facility] [id number] Mar, [facility] [place] [facility] [id number] [place] [address] Feb, [facility] [id number] [id number] Feb, [facility] [id number], [place] [id number] Feb, [facility] [id number] [place] [address], [place] [id number] Feb, [facility] [place] [facility] [id number] [place] [address] Jan, [facility] [id number] [id number] Jan, [facility] [id number] [place] [address], [place] [id number] Jan, [facility] [id number] [place] [address] Jan, [facility] [id number], [place] [id number] November, [facility] [id number] [place] [address], [place] [address]35[address] November, [facility] [place] [facility] [id number] [place] [address] November, [facility] [id number], [place] [id number] November, [facility] [id number] [place] [address], [place] [id number] Oct, [facility] [id number] [place] [address], [place] 2644[address]103 Oct, [facility] [id number] [place] [address], [place] [id number] Sep, [facility] [id number] [place] [address], [place] [id number] Sep, [facility] [id number] [place] [address], [place] [id number] Aug, [facility] [address], [place] [id number] Jul, [facility] [address] [facility] [id number] Jun, [facility] [address] [id number] [place] [address] Jun, [facility] [address] [id number] [place] [address] May, [facility] [id number] [place] [address] May, [facility] [id number] [id number] May, [facility] [place] [id number] [id number] May, [facility] [id number] [place] [address] May, [facility] [id number] [place] [address] May, [facility] [address] [id number] [id number] May, [facility] [id number] [place] [address] May, [facility] [address] [id number] [id number] May, [facility] [address] [id number] [place] [address] May, [facility] [address] [id number] [id number] May, [facility] [address] [id number] [place] [address] May, [facility] [address] [facility] [id number] May, [facility] [address] [id number] [place] [address] May, [facility] [address] [id number] [place] [address] Apr, [facility] [address] [id number] [place] [address] Apr, [facility] [address] [id number] [place] [address] Apr, [facility] [address] [id number] [place] [address] Apr, [facility] [id number] [place] [address], [place] [id number] Apr, [facility] [id number] [place] [address] Apr, [facility] [id number] [place] [address], [place] [id number] Apr, [facility] [address], [place] [id number] Mar, [facility] [id number] [place] [address], [place] [id number] Mar, [facility] [address], [place] [id number] Feb, [facility] [id number] [place] [address], [place] [id number] Jan, [facility] [address], [place] [id number] Dec, [facility] [id number] [place] [address], [place] 779270049 Dec, [facility] [id number] [place] [address], [place] [id number] November, [facility] [address], [place] [id number] November, [facility] [id number] [place] [address], [place] [id number] November, [facility] [address] [id number] [place] [address] November, [facility] [id number] [place] [address], [place] [id number] November, [facility] [address], [place] [id number] November, [facility] [address], [place] [id number] November, [facility] [id number] [id number] Oct, [facility] [id number] [place] [address], [place] [id number] Oct, [facility] [address] [id number] [id number] Oct, [facility] [id number] [place] [address], [place] [id number] Oct, [facility] [address], [place] [id number] Oct, [facility] [id number] [place] [address] Oct, [facility] [address] [id number] [id number] Oct, [facility] [address] [id number] [id number] Oct, [facility] [id number] [place] [address], [place] [id number] Sep, [facility] [id number] [place] [address], [place] [id number] Aug, [facility] [id number] [place] [address], [place] [id number] Aug, [facility] [id number] [place] [address], [place] [id number] Jul, [facility] [id number] [place] [address], [place] [id number] Jul, [facility] [place] [facility] [id number] [place] [address] Jul, [facility] [id number] [place] [address], [place] [id number] Jul, [facility] [address] [address] Jun, [facility] [place] [facility] [id number] [place] [address] Jun, [facility] [address] [address] May, [facility] [address] [id number] [place] [address] Apr, [facility] [address] [id number] [place] [address] Apr, [facility] [address] [id number] [place] [address] Jan, [facility] [address] [id number] [place] [address] Dec, [facility] [address] [id number] [place] [address] Aug, [facility] [address] [id number] [place] [address] Jun, [facility] [address] [id number] [place] [address] Jun, [facility] [id number] [place] [address] Jun, [facility] [address] [id number] [place] [address] Jun, [facility] [address] [id number] [place] [address] Jun, [facility] [address] [id number] [place] [address] May, [facility] [address] [id number] [place] [address] May, [facility] [address] [id number] [place] [address] May, [facility] [address] [id number] [place] [address] Apr, [facility] [address] [id number] [place] [address] Apr, [facility] [address] [id number] [place] [address] Apr, [facility] [address] [id number] [place] [address] Apr, [facility] [address] [id number] [place] [address] Mar, [facility] [address] [id number] [place] [address] Jun, [facility] [address] [id number] [place] [address] Jun, [facility] [address] [id number] [place] [address] Jun, IMMUNIZATIONS No Known Immunizations SOCIAL HISTORY Never Assessed REASON FOR VISIT PLAN OF CARE VITAL SIGNS Height 63 in 2013-12-04 Weight 138.38 lbs 2013-12-04 Temperature 98.2 degrees Fahrenheit 2013-12-04 Heart Rate 100 bpm 2013-12-04 Respiratory Rate 18 2013-12-04 Blood pressure systolic 124 mmHg 2013-12-04 Blood pressure diastolic 86 mmHg 2013-12-04 MEDICATIONS Unknown Medications RESULTS No Results PROCEDURES [...]
--- OUTSIDE RECORDS SUMMARY | 2020-01-13 17:51 | XMS REPORT ---
Author Author Ina DEJESUS [address] Address [address] [place] [address] Care Team Providers Care Income Tax Preparer Name Role Phone SANDY DEJESUS Unavailable PROBLEMS Type Condition ICD9-CM Code ZGY30-SB Code Onset Dates Condition S tatus SNOMED Code Problem ETOH abuse F10.10 Active 38784001 Problem Mild episode of recurrent major depressive disorder F33.0 Active [id number] ALLERGIES No Information ENCOUNTERS Encounter Location Date Diagnosis [facility] [address] [address] November, [facility] [address] [facility] [id number] [address] [address] November, Injury of left knee, subsequ ent encounter S89.92XD and Injury of left ankle, subsequent encounter S99.912D [facility] [address] [address] May, [facility] [address] [address] May, Mild episode of recurrent major depressi ve disorder F33.0 ; Elevated blood pressure reading R03.0 ; Screening for hyperlipidemia Z13.220 ; Screening for thyroid disorder Z13.29 ; Screening for diabetes mellitus Z13.1 and History of seizures Z87.898 [facility] [address] [id number] [place] [id number] Jul, [facility] [address] [address] Oct, [facility] [address] [address] Oct, [facility] [id number] [place] [id number] Sep, [facility] [address] [id number] [place] [address] Sep, [facility] [id number] [place] [address] Aug, [facility] [place] [address] [id number] [id number] Aug, [facility] [id number] [place] [address] Aug, 2014 [facility] [id number] [place] [address] Aug, [facility] [place] [address] [id number] [id number] Aug, [facility] [id number] [place] [address] Aug, [facility] [id number] [place] [address] Aug, [facility] [place] [address] [id number] [id number] Jul, [facility] [id number] [place] [address] Jul, [facility] [id number] [place] [address] Jul, [facility] [address] [id number] [place] [address] Jul, [facility] [place] [address] [id number] [id number] Jul, [facility] [id number] [place] [address] Jul, [facility] [id number] [place] [address] Jun, [facility] [id number] [place] [address] Jun, [facility] [place] [address] [facility] [id number] Jun, [facility] [address] [id number] [place] [address] Jun, [facility] [place] [address] [facility] [id number] Jun, [facility] [address] [id number] [place] [address] Jun, [facility] [address] [id number] [place] [address] Jun, [facility] [address] [id number] [place] [address] May, [facility] [address] [id number] [place] [address] May, [facility] [place] [address] [facility] [id number] May, [facility] [address] [id number] [place] [address] May, [facility] [address] [id number] [place] [address] Apr, [facility] [address] [id number] [place] [address] Apr, [facility] [place] [address] [facility]07[address] [id number] Apr, [facility] [address] [id number] [place] [address] Apr, [facility] [address] [id number] [place] [address] Mar, [facility] [address] [id number] [place] [address] Mar, [facility] [address] [id number] [place] [address] Mar, [facility] [address] [id number] [place] [address] Mar, [facility] [place] [address] [id number] [place] [id number] Mar, [facility] [address] [id number] [place] [address] Mar, [facility] [place] [address] [id number] [place] [id number] Mar, [facility] [address] [id number] [place] [address] Mar, [facility] [address] [id number] [place] [address] Feb, [facility] [address] [id number] [place] [address] Feb, [facility] [address] [id number] [place] [address] Feb, [facility] [address] [id number] [place] [address] Feb, [facility] [address] [id number] [place] [address] Feb, [facility] [address] [id number] [place] [address] Feb, [facility] [address] [id number] [id number] Feb, [facility] [address] [id number] [place] [address] Feb, [facility] [address] [id number] [place] [address] Jan, [facility] [address] [id number] [place] [address] Jan, [facility] [address] [id number] [place] [id number] Jan, [facility] [address] [id number] [place] [address] Jan, [facility] [address] [id number] [place] [address] Dec, [facility] [place] [address] [facility] [id number] Dec, [facility] [place] [address] [facility] [id number] November, [facility] [address] [id number] [place] [address] November, [facility] [address] [id number] [id number] November, [facility] [address] [id number] [place] [address] November, [facility] [id number] [place] [address] Oct, [facility] [address] [id number] [id number] Oct, [facility] [address] [id number] [id number] Oct, [facility] [address] [id number] [place] [address] Oct, [facility] [address] [id number] [id number] Oct, [facility] [address] [id number] [place] [address] Oct, [facility] [address] [id number] [id number] Oct, [facility] [address] [id number] [place] [address] Oct, [facility] [address] [id number] [place] [address] Oct, [facility] [address] [facility] [id number] Oct, [facility] [address] [id number] [place] [address] Oct, [facility] [address] [id number] [id number] Oct, [facility] [address] [facility]07757[place] [id number] Sep, [facility] [address] [id number] [place] [address] Sep, [facility] [id number] [place] [address] Sep, [facility] [address] [facility]757[facility] [id number] Sep, [facility] [place] [id number] [id number] Sep, [facility] [id number] [place] [address] Sep, [facility] [id number] [id number] Aug, [facility] [id number] [place] [address] Aug, [facility] [id number] [id number] Aug, [facility] [id number] [place] [address] Aug, [facility] [id number] [place] [address] Aug, [facility] [id number] [place] [address] Aug, [facility] [address] [id number] [id number] Jul, [facility] [id number] [place] [address] Jul, [facility] [address] [facility]07757[place] [id number] Jun, [facility] [id number] [place] [address] Jun, [facility] [address] [id number] [id number] May, [facility] [id number] [place] [address] May, [facility] [address] [facility]07757[place] [id number] Apr, [facility] [id number] [place] [address] Apr, [facility] [address] [id number] [id number] Mar, [facility] [place] [facility] [id number] [place] [address] Feb, [facility] [id number] [id number] Feb, [facility] [id number] [id number] Feb, [facility] [id number] [place] [address], [place] [id number] Feb, [facility] [place] [facility] [id number] [place] [address] Jan, [facility] [id number] [id number] Jan, [facility] [id number] [place] [address], [place] [id number] Jan, [facility] [id number] [place] [address] Jan, [facility] [id number] [id number] November, [facility] [id number] [place] [address], [place] [id number] November, [facility] [place] [facility] [id number] [place] [address] November, [facility] [id number] [id number] November, [facility] [id number] [place] [address], [place] [id number] Oct, [facility] [id number] [place] [address], [place] [id number] Oct, [facility] [id number] [place] [address], [place] [id number] Sep, [facility] [id number] [place] [address], [place] [id number] Sep, [facility] [id number] [place] [address], [place] [id number] Aug, [facility] [address], [place] [id number] Jul, [facility] [address] [id number] [id number] Jun, [facility] [address] [id number] [place] [address] Jun, [facility] [address] [id number] [place] [address] May, [facility] [id number] [place] [address] May, [facility] [address] [id number] [id number] May, [facility] [place] [id number] [id number] May, [facility] [id number] [place] [address] May, [facility] [id number] [place] [address] May, [facility] [id number] [id number] May, [facility] [id number] [place] [address] May, [facility] [address] [id number] [id number] May, [facility] [address] [id number] [place] [address] May, [facility] [address] [id number] [id number] May, [facility] [address] [id number] [place] [address] May, [facility] [address] [facility]07757[place] [id number] May, [facility] [address] [id number] [place] [address] May, [facility] [address] [id number] [place] [address] Apr, [facility] [address] [id number] [place] [address] Apr, [facility] [address] [id number] [place] [address] Apr, [facility] [address] [id number] [place] [address] Apr, [facility] [id number] [place] [address], [place] [id number] Apr, [facility] [id number] [place] [address] Apr, [facility] [id number] [place] [address], [place] [id number] Apr, [facility] [address], [place] [id number] Mar, [facility] [id number] [place] [address], [place] [id number] Mar, [facility] [address], [place] [id number] Feb, [facility] [id number] [place] [address], [place] [id number] Jan, [facility] [address], [place] [id number] Dec, [facility] [id number] [place] [address], [place] [id number] Dec, [facility] [id number] [place] [address], [place] [id number] November, [facility] [address], [place] [id number] November, [facility] [id number] [place] [address], [place] [id number] November, [facility] [address] [id number] [place] [address] November, [facility] [id number] [place] [address], [place] [id number] November, [facility] [address], [place] [id number] November, [facility] [address], [place] [id number] November, [facility] [id number] [id number] Oct, [facility] [id number] [place] [address], [place] [id number] Oct, [facility] [id number] [id number] Oct, [facility] [id number] [place] [address], [place] [id number] Oct, [facility] [address], [place] [id number] Oct, [facility] [id number] [place] [address] Oct, [facility] [id number] [id number] Oct, [facility] [id number] [id number] Oct, [facility] [id number] [place] [address], [place] [id number] Sep, [facility] [id number] [place] [address], [place] [id number] Aug, [facility] [id number] [place] [address], [place] [id number] Aug, [facility] [id number] [place] [address], [place] [id number] Jul, [facility] [id number] [place] [address], [place] [id number] Jul, [facility] [place] [facility] [id number] [place] [address] Jul, [facility] [id number] [place] [address], [place] [id number] Jul, [facility] [address] [address] Jun, [facility] [place] [facility] [id number] [place] [address] Jun, [facility] [address] [address] May, [facility] [address] [id number] [place] [address] Apr, [facility] [address] [id number] [place] [address] Apr, [facility] [address] [id number] [place] [address] Jan, [facility] [address] [id number] [place] [address] Dec, [facility] [address] [id number] [place] [address] Aug, [facility] [address] [id number] [place] [address] Jun, [facility] [address] [id number] [place] [address] Jun, [facility] [id number] [place] [address] Jun, [facility] [address] [id number] [place] [address] Jun, [facility] [address] [id number] [place] [address] Jun, [facility] [address] [id number] [place] [address] May, [facility] [address] [id number] [place] [address] May, [facility] [address] [id number] [place] [address] May, [facility] [address] [id number] [place] [address] Apr, [facility] [address] [id number] [place] [address] Apr, [facility] [address] [id number] [place] [address] Apr, [facility] [address] [id number] [place] [address] Apr, [facility] [address] [facility] [id number] [place] [address] Mar, [facility] [address] [id number] [place] [address] Jun, [facility] [address] [facility] [id number] [place] [address] Jun, [facility] [address] [id number] [place] [address] Jun, IMMUNIZATIONS No Known Immunizations SOCIAL HISTORY Never Assessed REASON FOR VISIT PLAN OF CARE VITAL SIGNS Height 63 in 2013-11-02 Weight 137.2 lbs 2013-11-02 Temperature 97.5 degrees Fahrenheit 2013-11-02 Heart Rate 80 bpm 2013-11-02 Respiratory Rate 20 2013-11-02 Blood pressure systolic 126 mmHg 2013-11-02 Blood pressure diastolic 66 mmHg 2013-11-02 MEDICATIONS Unknown Medications RESULTS No Results PROCEDURES Procedure Date Ordered Result Body Site DRUG SCREEN, QUALITATE/MULTI November 02, 2013 URINALYSIS, AUTO, W/O SCOPE November 02, 2013 INSTRUCTIONS MEDICATIONS ADMINISTERED No Known Medications [...]
--- OUTSIDE RECORDS SUMMARY | 2020-01-13 17:51 | XMS REPORT ---
Author Author Ina Rodriguez [facility] Address [address] [place] [address] Care Team Providers Care Administrative And Program Specialist Name Role Phone LATOYA Rodriguez Unavailable PROBLEMS Type Condition ICD9-CM Code [id number] Code Onset Dates Condition S tatus SNOMED Code Problem ETOH abuse F10.10 Active 79714661 Problem Mild episode of recurrent major depressive disorder F33.0 Active [id number] ALLERGIES No Information ENCOUNTERS Encounter Location Date Diagnosis [facility] [address] [address] November, [facility] [address] [facility] [id number] [address] [address] November, Injury of left knee, subsequ ent encounter S89.92XD and Injury of left ankle, subsequent encounter S99.912D [facility] [address] [address] May, [facility] [address] [address] May, Mild episode of recurrent major depressi ve disorder F33.0 ; Elevated blood pressure reading R03.0 ; Screening for hyperlipidemia Z13.220 ; Screening for thyroid disorder Z13.29 ; Screening for diabetes mellitus Z13.1 and History of seizures Z87.898 [facility] [id number] [place] [id number] Jul, [facility] [address] [address] Oct, [facility] [address] [address] Oct, [facility] [address] [id number] Sep, [facility] [address] [id number] [place] [address] Sep, [facility] [address] [id number] [place] [address] Aug, [facility] [place] [address] [facility] [id number] Aug, [facility] [id number] [place] [address] Aug, [facility] [address] [id number] [place] [address] Aug, [facility] [address] [id number] [address] Aug, [facility] [address] [id number] [place] [address] Aug, [facility] [id number] [place] [address] Aug, [facility] [address] [id number] [id number] Jul, [facility] [id number] [place] [address] Jul, [facility] [address] [id number] [place] [address] Jul, [facility] [address] [id number] [place] [address] Jul, [facility] [address] [id number] [id number] Jul, [facility] [address] [id number] [place] [address] Jul, [facility] [id number] [place] [address] Jun, [facility] [address] [id number] [place] [address] Jun, [facility] [address] [id number] [id number] Jun, [facility] [address] [id number] [place] [address] Jun, [facility] [address] [id number] [id number] Jun, [facility] [address] [id number] [place] [address] Jun, [facility] [id number] [place] [address] Jun, [facility] [id number] [place] [address] May, [facility] [id number] [place] [address] May, [facility] [address] [id number] [id number] May, [facility] [id number] [place] [address] May, [facility] [id number] [place] [address] Apr, [facility] [address] [id number] [place] [address] Apr, [facility] [address] [id number] [id number] Apr, [facility] [id number] [place] [address] Apr, [facility] [address] [id number] [place] [address] Mar, [facility] [address] [id number] [place] [address] Mar, [facility] [id number] [place] [address] Mar, [facility] [address] [id number] [place] [address] Mar, [facility] [address] [facility] [id number] Mar, [facility] [address] [id number] [place] [address] Mar, [facility] [address] [facility] [place] [id number] Mar, [facility] [address] [id number] [place] [address] Mar, [facility] [address] [id number] [place] [address] Feb, [facility] [address] [id number] [place] [address] Feb, [facility] [address] [id number] [place] [address] Feb, [facility] [address] [id number] [place] [address] Feb, [facility] [address] [id number] [place] [address] Feb, [facility] [address] [id number] [place] [address] Feb, [facility] [address] [id number] [place] [id number] Feb, [facility] [address] [id number] [place] [address] Feb, [facility] [address] [id number] [place] [address] Jan, [facility] [address] [id number] [place] [address] Jan, [facility] [address] [id number] [place] [id number] Jan, [facility] [address] [id number] [place] [address] Jan, [facility] [address] [id number] [place] [address] Dec, [facility] [address] [facility] [id number] Dec, [facility] [address] [id number] [place] [id number] November, [facility] [address] [id number] [place] [address] November, [facility] [address] [facility] [id number] November, [facility] [id number] [place] [address] November, [facility] [id number] [place] [address] Oct, [facility] [address] [id number] [id number] Oct, [facility] [id number] [place] [id number] Oct, [facility] [address] [id number] [place] [address] Oct, [facility] [id number] [address] Oct, [facility] [address] [id number] [place] [address] Oct, [facility] [address] [id number] [id number] Oct, [facility] [id number] [place] [address] Oct, [facility] [id number] [place] [address] Oct, [facility] [address] [id number] [address] Oct, [facility] [id number] [place] [address] Oct, [facility] [address] [id number] [id number] Oct, [facility] [address] [facility] [address] Sep, [facility] [address] [id number] [place] [address] Sep, [facility] [id number] [place] [address] Sep, [facility] [address] [facility]757[facility] [id number] Sep, [facility] [address] [id number] [address] Sep, [facility] [id number] [place] [address] Sep, [facility] [address] [id number] [id number] Aug, [facility] [id number] [place] [address] Aug, [facility] [address] [id number] [id number] Aug, [facility] [id number] [place] [address] Aug, [facility] [id number] [place] [address] Aug, [facility] [id number] [place] [address] Aug, [facility] [address] [id number] [address] Jul, [facility] [id number] [place] [address] Jul, [facility] [address] [id number] [address] Jun, [facility] [id number] [place] [address] Jun, [facility] [address] [id number] [address] May, [facility] [id number] [place] [address] May, [facility] [address] [facility] [id number] Apr, [facility] [id number] [place] [address] Apr, [facility] [id number] [id number] Mar, [facility] [place] [facility] [id number] [place] [address] Feb, [facility] [address] [facility]757[facility] [id number] Feb, [facility] [id number] [place] [address], [place] [id number] Feb, [facility] [address] [id number] [id number] Feb, [facility] [place] [facility] [id number] [place] [address] Jan, [facility] [address] [id number] [place] [id number] Jan, [facility] [id number] [address] Jan, [facility] [place] [facility] [id number] [place] [address] Jan, [facility] [address] [id number] [place] [id number] November, [facility] [id number] [id number] November, [facility] [place] [facility] [id number] [place] [address] November, [facility] [address] [id number] [id number] November, [facility] [id number] [id number] Oct, [facility] [id number] [place] [id number] Oct, [facility] [id number] [place] [address] Sep, [facility] [id number] [address] Sep, [facility] [id number] [address] Aug, [facility] [address] [facility] [id number] Jul, [facility] [address] [facility]757[facility] [address] Jun, [facility] [address] [id number] [place] [address] Jun, [facility] [address] [id number] [place] [address] May, [facility] [id number] [place] [address] May, [facility] [id number] [address] May, [facility] [id number] [id number] May, [facility] [id number] [place] [address] May, [facility] [id number] [place] [address] May, [facility] [address] [address] [address] May, [facility] [id number] [place] [address] May, [facility] [address] [place] [address] May, [facility] [address] [id number] [place] [address] May, [facility] [address] [place] [address] May, [facility] [address] [id number] [place] [address] May, [facility] [address] [id number] [address] May, [facility] [address] [id number] [place] [address] May, [facility] [address] [id number] [place] [address] Apr, [facility] [place] [facility] [address] [id number] [place] [address] Apr, [facility] [place] [facility] [address] [id number] [place] [address] Apr, [facility] [place] [facility] [address] [id number] [place] [address] Apr, [facility] [id number] [place] [address], [place] [id number] Apr, [facility] [place] [facility] [facility] [address] [id number] [place] [address] Apr, [facility] [id number] [place] [address], [place] [id number] Apr, [facility] [id number] [place] [address], [place] [id number] Mar, [facility] [id number] [place] [address], [place] [id number] Mar, [facility] [address], [place] [id number] Feb, [facility] [id number] [place] [id number] Jan, [facility] [address] [id number] Dec, [facility] [id number] [place] [address], [place] [id number] Dec, [facility] [id number] [place] [id number] November, [facility] [address], [place] [id number] November, [facility] [id number] [place] [address], [place] [id number] November, [facility] [place] [facility] [facility] [id number] [place] [address] November, [facility] [id number] [place] [address], [place] [id number] November, [facility] [id number] [place] [address] [id number] November, [facility] [address] [id number] November, [facility] [id number] [id number] Oct, [facility] [id number] [id number] Oct, [facility] [id number] [place] [id number] Oct, [facility] [id number] [place] [address], [place] [id number] Oct, [facility] [id number] [id number] Oct, [facility] [address] [address] Oct, [facility] [id number] [place] [id number] Oct, [facility] [id number] [place] 552189587 Oct, [facility] [id number] [place] [address], [place] [id number] Sep, [facility] [id number] [id number] Aug, [facility] [id number] [place] [address], [place] [id number] Aug, [facility] [id number] [id number] Jul, [facility] [id number] [place] [address], [place] [id number] Jul, [facility] [id number] [place] [address] Jul, [facility] [id number] [place] [address], [place] [id number] Jul, [facility] [address] [address] Jun, [facility] [address] [address] Jun, [facility] [address] [address] 18 May, 2011 [facility] [address] [facility] [id number] [place] [address] Apr, [facility] [address] [id number] [place] [address] 17 Apr, 2011 [facility] [address] [id number] [place] [address] Jan, [facility] [address] [id number] [place] [address] Dec, [facility] [address] [facility] [id number] [place] [address] Aug, [facility] [address] [id number] [place] [address] Jun, [facility] [address] [id number] [place] [address] Jun, [facility] [address] [id number] [place] [address] Jun, [facility] [address] [id number] [place] [address] Jun, [facility] [address] [id number] [place] [address] Jun, [facility] [address] [id number] [place] [address] 15 May, 2010 [facility] [address] [id number] [place] [address] 05 May, 2010 [facility] [address] [id number] [place] [address] May, [facility] [address] [id number] [place] [address] 18 Apr, 2010 [facility] [address] [id number] [place] [address] Apr, [facility] [address] [id number] [place] [address] Apr, [facility] [address] [id number] [place] [address] 11 Apr, 2010 [facility] [address] [id number] [place] [address] 10 Mar, 2010 [facility] [address] [id number] [place] [address] Jun, [facility] [address] [id number] [place] [address] Jun, [facility] [address] [id number] [place] [address] Jun, IMMUNIZATIONS No Known Immunizations SOCIAL HISTORY Never Assessed REASON FOR VISIT PLAN OF CARE VITAL SIGNS Height 63 in 2013-12-01 Weight 140.5 lbs 2013-12-01 Temperature 98.4 degrees Fahrenheit 2013-12-01 Heart Rate 108 bpm 2013-12-01 Respiratory Rate 14 2013-12-01 Blood pressure systolic 118 mmHg 2013-12-01 Blood pressure diastolic 90 mmHg 2013-12-01 MEDICATIONS Unknown Medications RESULTS No Results PROCEDURES [...]
--- OUTSIDE RECORDS SUMMARY | 2020-01-13 17:51 | XMS REPORT ---
Author Author Ina DEJESUS [address] Address [address] [place] [address] Care Team Providers Care Dietitian Therapeutic Name Role Phone SANDY DEJESUS Unavailable PROBLEMS Type Condition ICD9-CM Code JUA23-EC Code Onset Dates Condition S tatus SNOMED Code Problem ETOH abuse F10.10 Active 24677614 Problem Mild episode of recurrent major depressive disorder F33.0 Active [id number] ALLERGIES No Information ENCOUNTERS Encounter Location Date Diagnosis [facility] [address] [address] November, [facility] [address] [facility] [id number] [address] [address] November, Injury of left knee, subsequ ent encounter S89.92XD and Injury of left ankle, subsequent encounter S99.912D [facility] [address] [address] May, [facility] [address] [address] May, Mild episode of recurrent major depressi ve disorder F33.0 ; Elevated blood pressure reading R03.0 ; Screening for hyperlipidemia Z13.220 ; Screening for thyroid disorder Z13.29 ; Screening for diabetes mellitus Z13.1 and History of seizures Z87.898 [facility] [address] [facility] [place] [id number] Jul, [facility] [address] [address] Oct, [facility] [address] [address] Oct, [facility] [id number] [place] [id number] Sep, [facility] [address] [id number] [place] [address] Sep, [facility] [id number] [place] [address] Aug, [facility] [place] [address] [id number] [id number] Aug, [facility] [id number] [place] [address] Aug, 2014 [facility] [id number] [place] [address] Aug, [facility] [place] [address] [id number] [id number] Aug, [facility] [id number] [place] [address] Aug, [facility] [id number] [place] [address] Aug, [facility] [place] [address] [id number] [id number] Jul, [facility] [id number] [place] [address] Jul, [facility] [id number] [place] [address] Jul, [facility] [address] [id number] [place] [address] Jul, [facility] [place] [address] [id number] [id number] Jul, [facility] [id number] [place] [address] Jul, [facility] [id number] [place] [address] Jun, [facility] [id number] [place] [address] Jun, [facility] [place] [address] [facility] [id number] Jun, [facility] [address] [id number] [place] [address] Jun, [facility] [place] [address] [facility] [id number] Jun, [facility] [address] [id number] [place] [address] Jun, [facility] [address] [id number] [place] [address] Jun, [facility] [address] [id number] [place] [address] May, [facility] [address] [id number] [place] [address] May, [facility] [place] [address] [facility] [id number] May, [facility] [address] [id number] [place] [address] May, [facility] [address] [id number] [place] [address] Apr, [facility] [address] [id number] [place] [address] Apr, [facility] [place] [address] [facility] [id number] Apr, [facility] [address] [id number] [place] [address] Apr, [facility] [address] [id number] [place] [address] Mar, [facility] [address] [id number] [place] [address] Mar, [facility] [address] [id number] [place] [address] Mar, [facility] [address] [id number] [place] [address] Mar, [facility] [address] [facility] [place] [id number] Mar, [facility] [address] [id number] [place] [address] Mar, [facility] [place] [address] [id number] [place] [id number] Mar, [facility] [address] [id number] [place] [address] Mar, [facility] [address] [id number] [place] [address] Feb, [facility] [address] [id number] [place] [address] Feb, [facility] [address] [id number] [place] [address] Feb, [facility] [address] [id number] [place] [address] Feb, [facility] [address] [id number] [place] [address] Feb, [facility] [address] [id number] [place] [address] Feb, [facility] [address] [facility] [id number] Feb, [facility] [address] [id number] [place] [address] Feb, [facility] [address] [id number] [place] [address] Jan, [facility] [address] [id number] [place] [address] Jan, [facility] [address] [id number] [place] [id number] Jan, [facility] [address] [id number] [place] [address] Jan, [facility] [address] [id number] [place] [address] Dec, [facility] [address] [facility] [id number] Dec, [facility] [address] [facility] [id number] November, [facility] [address] [id number] [place] [address] November, [facility] [address] [facility] [id number] November, [facility] [address] [id number] [place] [address] November, [facility] [id number] [place] [address] Oct, [facility] [address] [facility] [id number] Oct, [facility] [address] [facility] [id number] Oct, [facility] [address] [id number] [place] [address] Oct, [facility] [address] [facility] [id number] Oct, [facility] [address] [id number] [place] [address] Oct, [facility] [address] [facility] [id number] Oct, [facility] [address] [id number] [place] [address] Oct, [facility] [address] [id number] [place] [address] Oct, [facility] [address] [facility] [id number] Oct, [facility] [address] [id number] [place] [address] Oct, [facility] [address] [facility] [id number] Oct, [facility] [address] [facility] [id number] Sep, [facility] [address] [id number] [place] [address] Sep, [facility] [id number] [place] [address] Sep, [facility] [address] [facility] [id number] Sep, [facility] [id number] [id number] Sep, [facility] [id number] [place] [address] Sep, [facility] [id number] [id number] Aug, [facility] [id number] [place] [address] Aug, [facility] [id number] [id number] Aug, [facility] [id number] [place] [address] Aug, [facility] [id number] [place] [address] Aug, [facility] [id number] [place] [address] Aug, [facility] [address] [id number] [id number] Jul, [facility] [id number] [place] [address] Jul, [facility] [address] [facility] [id number] Jun, [facility] [id number] [place] [address] Jun, [facility] [address] [id number] [address] May, [facility] [id number] [place] [address] May, [facility] [address] [facility] [id number] Apr, [facility] [id number] [place] [address] Apr, [facility] [address] [facility] [id number] Mar, [facility] [place] [facility] [id number] [place] [address] Feb, [facility] [id number] [id number] Feb, [facility] [id number] [id number] Feb, [facility] [id number] [place] [address], [place] [id number] Feb, [facility] [place] [id number] [place] [address] Jan, [facility] [id number] [id number] Jan, [facility] [id number] [place] [address], [place] [id number] Jan, [facility] [id number] [place] [address] Jan, [facility] [id number] [id number] November, [facility] [id number] [place] [address], [place] [id number] November, [facility] [place] [id number] [place] [address] November, [facility] [id number] [id number] November, [facility] [id number] [place] [address], [place] [id number] Oct, [facility] [id number] [place] [address], [place] [id number] Oct, [facility] [id number] [place] [address], [place] [id number] Sep, [facility] [id number] [place] [address], [place] [id number] Sep, [facility] [id number] [place] [address], [place] [id number] Aug, [facility] [address], [place] [id number] Jul, [facility] [address] [facility]757[facility] [id number] Jun, [facility] [address] [id number] [place] [address] Jun, [facility] [address] [id number] [place] [address] May, [facility] [id number] [place] [address] May, [facility] [id number] [id number] May, [facility] [place] [id number] [id number] May, [facility] [id number] [place] [address] May, [facility] [id number] [place] [address] May, [facility] [address] [id number] [address]38 May, [facility] [id number] [place] [address] May, [facility] [address] [id number] [id number] May, [facility] [address] [id number] [place] [address] May, [facility] [address] [id number] [id number] May, [facility] [address] [id number] [place] [address] May, [facility] [address] [facility] [id number] May, [facility] [address] [id number] [place] [address] May, [facility] [address] [id number] [place] [address] Apr, [facility] [address] [id number] [place] [address] Apr, [facility] [address] [id number] [place] [address] Apr, [facility] [address] [id number] [place] [address] Apr, [facility] [id number] [place] [address], [place] [id number] Apr, [facility] [id number] [place] [address] Apr, [facility] [id number] [place] [address], [place] [id number] Apr, [facility] [address], [place] [id number] Mar, [facility] [id number] [place] [address], [place] [id number] Mar, [facility] [address], [place] [id number] Feb, [facility] [id number] [place] [address], [place] [id number] Jan, [facility] [address], [place] [id number] Dec, [facility] [id number] [place] [address], [place] [id number] Dec, [facility] [id number] [place] [address], [place] [id number] November, [facility] [address], [place] [id number] November, [facility] [id number] [place] [address], [place] [id number] November, [facility] [address] [id number] [place] [address] November, [facility] [id number] [place] [address], [place] [id number] November, [facility] [address], [place] [id number] November, [facility] [address], [place] [id number] November, [facility] [id number] [id number] Oct, [facility] [id number] [place] [address], [place] [id number] Oct, [facility] [id number] [id number] Oct, [facility] [id number] [place] [address], [place] [id number] Oct, [facility] [address], [place] [id number] Oct, [facility] [id number] [place] [address] Oct, [facility] [address] [id number] [id number] Oct, [facility] [address] [id number] [id number] Oct, [facility] [id number] [place] [address], [place] [id number] Sep, [facility] [id number] [place] [address], [place] [id number] Aug, [facility] [id number] [place] [address], [place] [id number] Aug, [facility] [id number] [place] [address], [place] [id number] Jul, [facility] [id number] [place] [address], [place] [id number] Jul, [facility] [place] [facility] [id number] [place] [address] Jul, [facility] [id number] [place] [address], [place] [id number] Jul, [facility] [address] [address] Jun, [facility] [place] [facility] [id number] [place] [address] Jun, [facility] [address] [address] May, [facility] [address] [id number] [place] [address] Apr, [facility] [address] [id number] [place] [address] Apr, [facility] [address] [id number] [place] [address] Jan, [facility] [address] [id number] [place] [address] Dec, [facility] [address] [id number] [place] [address] Aug, [facility] [address] [id number] [place] [address] Jun, [facility] [address] [id number] [place] [address] Jun, [facility] [id number] [place] [address] Jun, [facility] [address] [id number] [place] [address] Jun, [facility] [address] [id number] [place] [address] Jun, [facility] [address] [id number] [place] [address] May, [facility] [address] [id number] [place] [address] May, [facility] [address] [id number] [place] [address] May, [facility] [address] [id number] [place] [address] Apr, [facility] [address] [id number] [place] [address] Apr, [facility] [address] [id number] [place] [address] Apr, [facility] [address] [id number] [place] [address] Apr, [facility] [address] [id number] [place] [address] Mar, [facility] [address] [id number] [place] [address] Jun, [facility] [address] [id number] [place] [address] Jun, [facility] [address] [id number] [place] [address] Jun, IMMUNIZATIONS No Known Immunizations SOCIAL HISTORY Never Assessed REASON FOR VISIT PLAN OF CARE VITAL SIGNS MEDICATIONS Unknown Medications RESULTS No Results PROCEDURES Procedure Date Ordered Result Body Site DRUG SCREEN, QUALITATE/MULTI November 13, 2013 INSTRUCTIONS MEDICATIONS ADMINISTERED No Known Medications [...]
--- OUTSIDE RECORDS SUMMARY | 2020-01-13 17:52 | XMS REPORT ---
Author Author Elba Ina [facility] Organization [facility] Address [address], [place] [id number] Care Team Providers Care Sterilization Specialist Name Role Phone Elba [facility] Unavailable PROBLEMS Type Condition ICD9-CM Code [id number] Code Onset Dates Condition S tatus SNOMED Code Problem ETOH abuse F10.10 Active [id number] Problem Mild episode of recurrent major depressive disorder F33.0 Active [id number] ALLERGIES No Information ENCOUNTERS Encounter Location Date Diagnosis [facility] [address] [id number] [address] [place] [address] November, [facility] [address] [address] November, Injury of left knee, subsequ ent encounter S89.92XD and Injury of left ankle, subsequent encounter S99.912D [facility] [address] [address] May, [facility] [address] [id number] [address] [place] [address] May, Mild episode of recurrent ma shawna depressive disorder F33.0 ; Elevated blood pressure reading R03.0 ; Screening for hyperlipidemia Z13.220 ; Screening for thyroid disorder Z13.29 ; Screening for diabetes mellitus Z13.1 and History of seizures Z87.898 [facility] [address] [id number] [id number] Jul, [facility] [address] [id number] [address] [place] [phone] Oct, [facility] [address] [id number] [address] [place] [address] Oct, [facility] [address] [id number] [place] [id number] Sep, [facility] [address] [id number] [address] [place] [address], [place] [address] Sep, [facility] [address] [id number] [address] [place] [address], [place] [address] Aug, [facility] [place] [address] [id number] [place] [id number] Aug, [facility] [address] [id number] [address] [place] [address], [place] [address] Aug, [facility] [address] [id number] [address] [place] [address], [place] [address] Aug, [facility] [place] [address] [id number] [place] [id number] Aug, [facility] [address] [id number] [address] [place] [address], [place] [address] Aug, [facility] [address] [id number] [address] [place] [address], [place] [address] Aug, [facility] [place] [address] [id number] [place] [id number] Jul, [facility] [address] [id number] [address] [place] [address], [place] [address] Jul, [facility] [address] [id number] [address] [place] [address], [place] [address] Jul, [facility] [address] [id number] [address] [place] [address], [place] [address] Jul, [facility] [place] [address] [id number] [place] [id number] Jul, [facility] [address] [id number] [address] [place] [address], [place] [address] Jul, [facility] [address] [id number] [address] [place] [address], [place] [address] Jun, [facility] [address] [id number] [address] [place] [address], [place] [address] Jun, [facility] [place] [address] [id number] [place] [id number] Jun, [facility] [address] [id number] [facility] [place] [address] Jun, [facility] [place] [address] [id number] [place] [id number] Jun, [facility] [address] [id number] [address] [place] [address], [place] [address] Jun, [facility] [address] [id number] [address] [place] [address], [place] [address] Jun, [facility] [address] [id number] [address] [place] [address], [place] [address] May, [facility] [address] [id number] [address] [place] [address], [place] [address] May, [facility] [place] [address] [id number] [place] [id number] May, [facility] [address] [id number] [address] [place] [address], [place] [address] May, [facility] [address] [id number] [address] [place] [address], [place] [address] Apr, [facility] [address] [id number] [address] [place] [address], [place] [address] Apr, [facility] [place] [address] [id number] [place] [id number] Apr, [facility] [address] [id number] [address] [place] [address], [place] [address] Apr, [facility] [address] [id number] [address] [place] [address], [place] [address] Mar, [facility] [address] [id number] [address] [place] [address], [place] [address] Mar, [facility] [address] [id number] [facility] [place] [address] Mar, [facility] [address] [id number] [facility] [place] [address] Mar, [facility] [place] [address] [id number] [place] [id number] Mar, [facility] [address] [id number] [facility] [place] [address] Mar, [facility] [address] [id number] [place] [id number] Mar, [facility] [address] [id number] [address] [place] [address], [place] [address] Mar, [facility] [address] [id number] [address] [place] [address], [place] [address] Feb, [facility] [address] [id number] [address] [place] [address], [place] [address] Feb, [facility] [address] [id number] [address] [place] [address], [place] [address] Feb, [facility] [address] [id number] [address] [place] [address], [place] [address] Feb, [facility] [address] [id number] [address] [place] [address], [place] [address] Feb, [facility] [address] [id number] [address] [place] [address], [place] [address] Feb, [facility] [place] [address] [id number] [place] [id number] Feb, [facility] [address] [id number] [address] [place] [address], [place] [address] Feb, [facility] [address] [id number] [address] [place] [address], [place] [address] Jan, [facility] [address] [id number] [facility] [place] [address] Jan, [facility] [place] [address] [id number] [place] [id number] Jan, [facility] [address] [id number] [address] [place] [address], [place] [address] Jan, [facility] [address] [id number] [address] [place] [address], [place] [address] Dec, [facility] [place] [address] [id number] [place] [id number] Dec, [facility] [place] [address] [id number] [place] [id number] November, [facility] [address] [id number] [address] [place] [address], [place] [address] November, [facility] [place] [address] [id number] [place] [id number] November, [facility] [address] [id number] [address] [place] [address], [place] [address] November, [facility] [address] [id number] [address] [place] [address], [place] [address] Oct, [facility] [place] [address] [id number] [place] [id number] Oct, [facility] [place] [address] [id number] [place] [id number] Oct, [facility] [address] [id number] [address] [place] [address], [place] [address] Oct, [facility] [place] [address] [id number] [place] [id number] Oct, [facility] [address] [id number] [address] [place] [address], [place] [address] Oct, [facility] [place] [address] [id number] [place] [id number] Oct, [facility] [address] [id number] [address] [place] [address], [place] [address] Oct, [facility] [address] [id number] [address] [place] [address], [place] [address] Oct, [facility] [place] [address] [id number] [place] [id number] Oct, [facility] [address] [id number] [address] [place] [address], [place] [address] Oct, [facility] [place] [address] [id number] [place] [id number] Oct, [facility] [place] [address] [id number] [place] [id number] Sep, [facility] [address] [id number] [address] [place] [address], [place] [address] Sep, [facility] [address] [id number] [address] [place] [address], [place] [address] Sep, [facility] [place] [address] [id number] [place] [id number] Sep, [facility] [place] [address] [id number] [place] [id number] Sep, [facility] [address] [facility] [id number] [address] [place] [address] Sep, [facility] [place] [address] [id number] [place] [id number] Aug, [facility] [address] [facility] [id number] [address] [place] [address] Aug, [facility] [place] [address] [id number] [place] [id number] Aug, [facility] [address] [id number] [address] [place] [address] Aug, [facility] [address] [facility] [id number] [address] [place] [address] Aug, [facility] [address] [facility] [id number] [address] [place] [address] Aug, [facility] [place] [address] [id number] [place] [id number] Jul, [facility] [address] [id number] [address] [place] [address] Jul, [facility] [place] [address] [id number] [place] [id number] Jun, [facility] [address] [facility] [id number] [address] [place] [address] Jun, [facility] [place] [address] [id number] [place] [id number] May, [facility] [address] [facility] [id number] [address] [place] [address] May, [facility] [place] [address] [id number] [place] [id number] Apr, [facility] [address] [id number] [address] [place] [address] Apr, [facility] [place] [address] [id number] [place] [id number] Mar, [facility] [address] [facility] [id number] [address] [place] [address] Feb, [facility] [place] [address] [id number] [place] [id number] Feb, [facility] [place] [address] [id number] [place] [id number] Feb, [facility] [place] [address] [id number] [place] [id number] Feb, [facility] [address] [id number] [address] [place] [address] Jan, [facility] [place] [address] [id number] [place] [id number] Jan, [facility] [place] [address] [id number] [place] [id number] Jan, [facility] [address] [facility] [id number] [address] [place] [address] Jan, [facility] [place] [address] [id number] [place] [id number] November, [facility] [place] [address] [id number] [place] [id number] November, [facility] [address] [id number] [address] [place] [address] November, [facility] [place] [address] [id number] [place] [id number] November, [facility] [place] [address] [id number] [place] [id number] Oct, [facility] [place] [address] [id number] [place] [id number] Oct, [facility] [place] [address] [id number] [place] [id number] Sep, [facility] [place] [address] [id number] [place] [id number] Sep, [facility] [place] [address] [id number] [place] [id number] Aug, [facility] [place] [address] [id number] [place] [id number] Jul, [facility] [place] [address] [id number] [place] [id number] Jun, [facility] [address] [facility] [id number] [address] [place] [address] Jun, [facility] [address] [facility] [id number] [address] [place] [address] May, [facility] [address] [facility] [id number] [address] [place] [address] May, [facility] [place] [address] [id number] [place] [id number] May, [facility] [place] [address] [id number] [place] [id number] May, [facility] [address] [facility] [id number] [address] [place] [address] May, [facility] [address] [facility] [id number] [address] [place] [address] May, [facility] [place] [address] [id number] [place] [id number] May, [facility] [address] [id number] [address] [place] [address] May, [facility] [place] [address] [id number] [place] [id number] May, [facility] [address] [id number] [address] [place] [address], [place] [address] May, [facility] [place] [address] [id number] [place] [id number] May, [facility] [address] [id number] [address] [place] [address] May, [facility] [place] [address] [id number] [place] [id number] May, [facility] [address] [facility] [id number] [address] [place] [address] May, [facility] [address] [facility] [id number] [address] [place] [address] Apr, [facility] [address] [facility] [id number] [address] [place] [address] Apr, [facility] [address] [facility] [id number] [address] [place] [address] Apr, [facility] [address] [facility] [id number] [address] [place] [address] Apr, [facility] [place] [address] [id number] [place] [id number] Apr, [facility] [address] [id number] [address] [place] [address] Apr, [facility] [place] [address] [id number] [place] [id number] Apr, [facility] [place] [address] [id number] [place] [id number] Mar, [facility] [place] [address] [id number] [place] [id number] Mar, [facility] [place] [address] [id number] [place] [id number] Feb, [facility] [place] [address] [id number] [place] [id number] Jan, [facility] [place] [address] [id number] [place] [id number] Dec, [facility] [place] [address] [id number] [place] [id number] Dec, [facility] [place] [address] [id number] [place] [id number] November, [facility] [place] [address] [id number] [place] [id number] November, [facility] [place] [address] [id number] [place] [id number] November, [facility] [address] [facility] [id number] [address] [place] [address] November, [facility] [place] [address] [id number] [place] [id number] November, [facility] [place] [address] [id number] [place] [id number] November, [facility] [place] [address] [id number] [place] [id number] November, [facility] [place] [address] [id number] [place] [id number] Oct, [facility] [place] [address] [id number] [place] [id number] Oct, [facility] [place] [address] [id number] [place] [id number] Oct, [facility] [place] [address] [id number] [place] [id number] Oct, [facility] [place] [address] [id number] [place] [id number] Oct, [facility] [address] [facility] [id number] [place] [address] Oct, [facility] [place] [address] [id number] [place] [id number] Oct, [facility] [place] [address] [id number] [place] [id number] Oct, [facility] [place] [address] [id number] [place] [id number] Sep, [facility] [place] [address] [id number] [place] [id number] Aug, [facility] [place] [address] [id number] [place] [id number] Aug, [facility] [place] [address] [id number] [place] [id number] Jul, [facility] [place] [address] [id number] [place] [id number] Jul, [facility] [address] [facility] [id number] [address] [place] [address] Jul, [facility] [place] [address] [id number] [place] [id number] Jul, [facility] [address] [facility] [id number] [address] [place] [id number] Jun, [facility] [address] [facility] [id number] [address] [place] [address] Jun, [facility] [address] [facility] [id number] [address] [place] [id number] May, [facility] [address] [facility] [id number] [address] [place] [id number] Apr, [facility] [address] [facility] [id number] [address] [place] [id number] Apr, [facility] [address] [facility] [id number] [address] [place] [id number] Jan, [facility] [address] [facility] [id number] [address] [place] [phone] Dec, [facility] [address] [facility] [id number] [address] [place] [id number] Aug, [facility] [address] [id number] [address] [place] [address], [place] [address] 23 Jun, 2010 [facility] [address] [id number] [address] [place] [address], [place] [address] Jun, [facility] [address] [id number] [address] [place] [address], [place] [address] Jun, [facility] [address] [id number] [address] [place] [address], [place] [address] Jun, [facility] [address] [id number] [address] [place] [address], [place] [address] Jun, [facility] [address] [id number] [address] [place] [address], [place] [address] 15 May, 2010 [facility] [address] [id number] [address] [place] [address], [place] [address] May, [facility] [address] [id number] [address] [place] [phone] May, [facility] [address] [id number] [address] [place] [address], [place] [id number] Apr, [facility] [address] [id number] [address] [place] [id number] Apr, [facility] [address] [id number] [address] [place] [id number] Apr, [facility] [address] [id number] [address] [place] [id number] Apr, [facility] [address] [id number] [address] [place] [id number] 10 Mar, 2010 [facility] [address] [id number] [address] [place] [id number] 17 Jun, 2009 [facility] [address] [id number] [address] [place] [id number] 14 Jun, 2009 [facility] [address] [id number] [address] [place] [id number] Jun, IMMUNIZATIONS No Known Immunizations SOCIAL HISTORY [...]
--- OUTSIDE RECORDS SUMMARY | 2020-01-13 17:52 | XMS REPORT ---
Author Author Ina Rodriguez Organization [facility] Address [address] [place] [address] Care Team Providers Care Graduate Intern Name Role Phone LATOYA Rodriguez Unavailable PROBLEMS Type Condition ICD9-CM Code OBW45-LQ Code Onset Dates Condition S tatus SNOMED Code Problem ETOH abuse F10.10 Active 02548176 Problem Mild episode of recurrent major depressive disorder F33.0 Active [id number] ALLERGIES No Information ENCOUNTERS Encounter Location Date Diagnosis [facility] [id number] [address] [place] [address] November, [facility] [address] [address] November, Injury of left knee, subsequ ent encounter S89.92XD and Injury of left ankle, subsequent encounter S99.912D [facility] [address] [address] May, [facility] [address] [id number] [address] [place] [address] May, Mild episode of recurrent ma shawna depressive disorder F33.0 ; Elevated blood pressure reading R03.0 ; Screening for hyperlipidemia Z13.220 ; Screening for thyroid disorder Z13.29 ; Screening for diabetes mellitus Z13.1 and History of seizures Z87.898 [facility] [id number] [place] [id number] Jul, [facility] [address] [id number] [address] [place] [address] Oct, [facility] [address] [id number] [address] [place] [address] Oct, [facility] [address] [id number] [place] [id number] Sep, [facility] [address] [id number] [address] [place] [address], [place] [address] Sep, [facility] [address] [id number] [address] [place] [address], [place] [address] Aug, 2014 [facility] [place] [address] [id number] [place] [id number] Aug, [facility] [address] [id number] [address] [place] [address], [place] [address] Aug, [facility] [address] [id number] [address] [place] [address], [place] [address] Aug, 2014 [facility] [place] [address] [id number] [place] [id number] Aug, [facility] [address] [id number] [address] [place] [address], [place] [address] Aug, [facility] [address] [id number] [address] [place] [address], [place] [address] Aug, [facility] [place] [address] [id number] [place] [id number] Jul, [facility] [address] [id number] [address] [place] [address], [place] [address] Jul, [facility] [address] [id number] [address] [place] [address], [place] [address] Jul, [facility] [address] [id number] [address] [place] [address], [place] [address] Jul, [facility] [place] [address] [id number] [place] [id number] Jul, [facility] [address] [id number] [address] [place] [address], [place] [address] Jul, [facility] [address] [id number] [address] [place] [address], [place] [address] Jun, [facility] [address] [id number] [address] [place] [address], [place] [address] Jun, [facility] [place] [address] [id number] [place] [id number] Jun, [facility] [address] [id number] [address] [place] [address], [place] [address] Jun, [facility] [place] [address] [id number] [place] [id number] Jun, [facility] [address] [id number] [address] [place] [address], [place] [address] Jun, [facility] [address] [id number] [address] [place] [address], [place] [address] Jun, [facility] [address] [id number] [address] [place] [address], [place] [address] May, [facility] [address] [id number] [address] [place] [address], [place] [address] May, [facility] [place] [address] [id number] [place] [id number] May, [facility] [address] [id number] [address] [place] [address], [place] [address] May, [facility] [address] [id number] [address] [place] [address], [place] [address] Apr, [facility] [address] [id number] [address] [place] [address], [place] [address] Apr, [facility] [place] [address] [id number] [place] [id number] Apr, [facility] [address] [id number] [address] [place] [address], [place] [address] Apr, [facility] [address] [id number] [address] [place] [address], [place] [address] Mar, [facility] [address] [id number] [address] [place] [address], [place] [address] Mar, [facility] [address] [id number] [facility] [place] [address] Mar, [facility] [address] [id number] [facility] [place] [address] Mar, [facility] [place] [address] [id number] [place] [id number] Mar, [facility] [address] [id number] [facility] [place] [address] Mar, [facility] [place] [address] [id number] [place] [id number] Mar, [facility] [address] [id number] [facility] [address] Mar, [facility] [address] [id number] [address] [place] [address], [place] [address] Feb, [facility] [address] [id number] [address] [place] [address], [place] [address] Feb, [facility] [address] [id number] [address] [place] [address], [place] [address] Feb, [facility] [address] [id number] [address] [place] [address], [place] [address] Feb, [facility] [address] [id number] [address] [place] [address], [place] [address] Feb, [facility] [address] [id number] [address] [place] [address], [place] [address] Feb, [facility] [place] [address] [id number] [place] [id number] Feb, [facility] [address] [id number] [address] [place] [address], [place] [address] Feb, [facility] [address] [id number] [address] [place] [address], [place] [address] Jan, [facility] [address] [id number] [facility] [address] Jan, [facility] [place] [address] [id number] [place] [id number] Jan, [facility] [address] [id number] [address] [place] [address], [place] [address] Jan, [facility] [address] [id number] [address] [place] [address], [place] [address] Dec, [facility] [place] [address] [id number] [place] [id number] Dec, [facility] [place] [address] [id number] [place] [id number] November, [facility] [address] [id number] [address] [place] [address], [place] [address] November, [facility] [place] [address] [id number] [place] [id number] November, [facility] [address] [id number] [address] [place] [address], [place] [address] November, [facility] [address] [id number] [address] [place] [address], [place] [address] Oct, [facility] [place] [address] [id number] [place] [id number] Oct, [facility] [place] [address] [id number] [place] [id number] Oct, [facility] [address] [id number] [address] [place] [address], [place] [address] Oct, [facility] [place] [address] [id number] [place] [id number] Oct, [facility] [address] [id number] [address] [place] [address], [place] [address] Oct, [facility] [place] [address] [id number] [place] [id number] Oct, [facility] [address] [id number] [address] [place] [address], [place] [address] Oct, [facility] [address] [id number] [address] [place] [address], [place] [address] Oct, [facility] [place] [address] [id number] [place] [id number] Oct, [facility] [address] [id number] [address] [place] [address] Oct, [facility] [place] [address] [id number] [place] [id number] Oct, [facility] [place] [address] [id number] [place] [id number] Sep, [facility] [address] [id number] [address] [place] [address] Sep, [facility] [address] [id number] [address] [place] [address] Sep, [facility] [place] [address] [id number] [place] [id number] Sep, [facility] [place] [address] [id number] [place] [id number] Sep, [facility] [address] [id number] [address] [place] [address] Sep, [facility] [place] [address] [id number] [place] [id number] Aug, [facility] [address] [facility] [id number] [address] [place] [address] Aug, [facility] [place] [address] [id number] [place] [id number] Aug, [facility] [address] [id number] [address] [place] [address] Aug, [facility] [address] [facility] [id number] [address] [place] [address] Aug, [facility] [address] [facility] [id number] [address] [place] [address] Aug, [facility] [place] [address] [id number] [place] [id number] Jul, [facility] [address] [id number] [address] [place] [address] Jul, [facility] [place] [address] [id number] [place] [id number] Jun, [facility] [address] [id number] [address] [place] [address] Jun, [facility] [place] [address] [id number] [place] [id number] May, [facility] [address] [facility] [id number] [address] [place] [address] May, [facility] [place] [address] [id number] [place] [id number] Apr, [facility] [address] [id number] [address] [place] [address] Apr, [facility] [place] [address] [id number] [place] [id number] Mar, [facility] [address] [facility] [id number] [address] [place] [address] Feb, [facility] [place] [address] [id number] [place] [id number] Feb, [facility] [place] [address] [id number] [place] [id number] Feb, [facility] [place] [address] [id number] [place] [id number] Feb, [facility] [address] [id number] [address] [place] [address] Jan, [facility] [place] [address] [id number] [place] [id number] Jan, [facility] [place] [address] [id number] [place] [id number] Jan, [facility] [address] [id number] [address] [place] [address] Jan, [facility] [place] [address] [id number] [place] [id number] November, [facility] [place] [address] [id number] [place] [id number] November, [facility] [address] [id number] [address] [place] [address] November, [facility] [place] [address] [id number] [place] [id number] November, [facility] [place] [address] [id number] [place] [id number] Oct, [facility] [place] [address] [id number] [place] [id number] Oct, [facility] [place] [address] [id number] [place] [id number] Sep, [facility] [place] [address] [id number] [place] [id number] Sep, [facility] [place] [address] [id number] [place] [id number] Aug, [facility] [place] [address] [id number] [place] [id number] Jul, [facility] [place] [address] [id number] [place] [id number] Jun, [facility] [address] [facility] [id number] [address] [place] [address] Jun, [facility] [address] [facility] [id number] [address] [place] [address] May, [facility] [address] [facility] [id number] [address] [place] [address] May, [facility] [place] [address] [id number] [place] [id number] May, [facility] [place] [address] [id number] [place] [id number] May, [facility] [address] [facility] [id number] [address] [place] [address] May, [facility] [address] [facility] [id number] [address] [place] [address] May, [facility] [place] [address] [id number] [place] [id number] May, [facility] [address] [id number] [address] [place] [address] May, [facility] [place] [address] [id number] [place] [id number] May, [facility] [address] [id number] [address] [place] [address] May, [facility] [place] [address] [id number] [place] [id number] May, [facility] [address] [id number] [address] [place] [address] May, [facility] [place] [address] [id number] [place] [id number] May, [facility] [address] [facility] [id number] [address] [place] [address] May, [facility] [address] [facility] [id number] [address] [place] [address] Apr, [facility] [address] [facility] [id number] [address] [place] [address] Apr, [facility] [address] [facility] [id number] [address] [place] [address] Apr, [facility] [address] [facility] [id number] [address] [place] [address] Apr, [facility] [place] [address] [id number] [place] [id number] Apr, [facility] [address] [id number] [address] [place] [address] Apr, [facility] [place] [address] [id number] [place] [id number] Apr, [facility] [place] [address] [id number] [place] [id number] Mar, [facility] [place] [address] [id number] [place] [id number] Mar, [facility] [place] [address] [id number] [place] [id number] Feb, [facility] [place] [address] [id number] [place] [id number] Jan, [facility] [place] [address] [id number] [place] [id number] Dec, [facility] [place] [address] [id number] [place] [id number] Dec, [facility] [place] [address] [id number] [place] [id number] November, [facility] [place] [address] [id number] [place] [id number] November, [facility] [place] [address] [id number] [place] [id number] November, [facility] [address] [facility] [id number] [address] [place] [address] November, [facility] [place] [address] [id number] [place] [id number] November, [facility] [place] [address] [id number] [place] [id number] November, [facility] [place] [address] [id number] [place] [id number] November, [facility] [place] [address] [id number] [place] [id number] Oct, [facility] [place] [address] [id number] [place] [id number] Oct, [facility] [place] [address] [id number] [place] [id number] Oct, [facility] [place] [address] [id number] [place] [id number] Oct, [facility] [place] [address] [id number] [place] [id number] Oct, [facility] [address] [facility] [id number] [place] [address] Oct, [facility] [place] [address] [id number] [place] [id number] Oct, [facility] [place] [address] [id number] [place] [id number] Oct, [facility] [place] [address] [id number] [place] [id number] Sep, [facility] [place] [address] [id number] [place] [id number] Aug, [facility] [place] [address] [id number] [place] [id number] Aug, [facility] [place] [address] [id number] [place] [id number] Jul, [facility] [place] [address] [id number] [place] [id number] Jul, [facility] [address] [facility] [id number] [address] [place] [address] Jul, [facility] [place] [address] [id number] [place] [id number] Jul, [facility] [address] [facility] [id number] [address] [place] [id number] Jun, [facility] [address] [facility] [id number] [address] [place] [address] Jun, [facility] [address] [facility] [id number] [address] [place] [id number] May, [facility] [address] [facility] [id number] [address] [place] [id number] Apr, [facility] [address] [facility] [id number] [address] [place] [id number] Apr, [facility] [address] [facility] [id number] [address] [place] [id number] Jan, [facility] [address] [facility] [id number] [address] [place] [id number] Dec, [facility] [address] [facility] [id number] [address] [place] [id number] Aug, [facility] [address] [id number] [address] [place] [address], [place] [address] Jun, [facility] [address] [id number] [address] [place] [address], [place] [address] Jun, [facility] [address] [id number] [address] [place] [address], [place] [address] Jun, [facility] [address] [id number] [address] [place] [address], [place] [address] Jun, [facility] [address] [id number] [address] [place] [address], [place] [address] Jun, [facility] [address] [id number] [address] [place] [address], [place] [address] 15 May, 2010 [facility] [address] [id number] [address] [place] [address], [place] [address] May, [facility] [address] [id number] [address] [place] [address], [place] [address] May, [facility] [address] [id number] [address] [place] [address], [place] [address] Apr, [facility] [address] [id number] [address] [place] [id number] Apr, [facility] [address] [id number] [address] [place] [id number] Apr, [facility] [address] [id number] [address] [place] [id number] Apr, [facility] [address] [id number] [address] [place] [address], [place] [address] 10 Mar, 2010 [facility] [address] [id number] [address] [place] [address], [place] [address] 17 Jun, 2009 [facility] [address] [id number] [address] [place] [id number] 14 Jun, 2009 [facility] [address] [id number] [address] [place] [id number] Jun, IMMUNIZATIONS No Known Immunizations SOCIAL HISTORY Never Assessed REASON FOR VISIT PLAN OF CARE VITAL SIGNS MEDICATIONS Unknown Medications RESULTS No Results PROCEDURES Procedure Date Ordered Result Body Site DRUG SCREEN, QUALITATE/MULTI January 29, 2014 INSTRUCTIONS MEDICATIONS ADMINISTERED No Known Medications [...]
--- OUTSIDE RECORDS SUMMARY | 2020-01-13 17:52 | XMS REPORT ---
Author Author Ina DEJESUS [address] Address [address] [place] [address] Care Team Providers Care Property Assistant Name Role Phone SANDY DEJESUS Unavailable PROBLEMS Type Condition ICD9-CM Code PQX30-AJ Code Onset Dates Condition S tatus SNOMED Code Problem ETOH abuse F10.10 Active 10264943 Problem Mild episode of recurrent major depressive disorder F33.0 Active [id number] ALLERGIES No Information ENCOUNTERS Encounter Location Date Diagnosis [facility] [address] [address] November, [facility] [address] [facility] [id number] [address] [address] November, Injury of left knee, subsequ ent encounter S89.92XD and Injury of left ankle, subsequent encounter S99.912D [facility] [address] [address] May, [facility] [address] [address] May, Mild episode of recurrent major depressi ve disorder F33.0 ; Elevated blood pressure reading R03.0 ; Screening for hyperlipidemia Z13.220 ; Screening for thyroid disorder Z13.29 ; Screening for diabetes mellitus Z13.1 and History of seizures Z87.898 [facility] [address] [id number] [place] [id number] Jul, [facility] [address] [address] Oct, [facility] [address] [address] Oct, [facility] [id number] [place] [id number] Sep, [facility] [place] [address] [id number] [place] [address] Sep, [facility] [id number] [place] [address] Aug, [facility] [id number] [id number] Aug, [facility] [id number] [place] [address] Aug, 2014 [facility] [id number] [place] [address] Aug, [facility] [address] [id number] [id number] Aug, [facility] [id number] [place] [address] Aug, [facility] [id number] [place] [address] Aug, [facility] [address] [id number] [id number] Jul, [facility] [id number] [place] [address] Jul, [facility] [id number] [place] [address] Jul, [facility] [address] [id number] [place] [address] Jul, [facility] [address] [id number] [id number] Jul, [facility] [id number] [place] [address] Jul, [facility] [id number] [place] [address] Jun, [facility] [id number] [place] [address] Jun, [facility] [address] [facility] [id number] Jun, [facility] [address] [id number] [place] [address] Jun, [facility] [address] [facility] [id number] Jun, [facility] [address] [id number] [place] [address] Jun, [facility] [address] [id number] [place] [address] Jun, [facility] [address] [id number] [place] [address] May, [facility] [address] [id number] [place] [address] May, [facility] [address] [facility] [id number] May, [facility] [address] [id number] [place] [address] May, [facility] [address] [id number] [place] [address] Apr, [facility] [address] [id number] [place] [address] Apr, [facility] [address] [facility] [id number] Apr, [facility] [address] [id number] [place] [address] Apr, [facility] [address] [id number] [place] [address] Mar, [facility] [address] [id number] [place] [address] Mar, [facility] [address] [id number] [place] [address] Mar, [facility] [address] [id number] [place] [address] Mar, [facility] [address] [facility] [place] [id number] Mar, [facility] [address] [id number] [place] [address] Mar, [facility] [place] [address] [facility] [place] [id number] Mar, [facility] [address] [id number] [place] [address] Mar, [facility] [address] [id number] [place] [address] Feb, [facility] [address] [id number] [place] [address] Feb, [facility] [address] [id number] [place] [address] Feb, [facility] [address] [id number] [place] [address] Feb, [facility] [address] [id number] [place] [address] Feb, [facility] [address] [id number] [place] [address] Feb, [facility] [address] [facility] [id number] Feb, [facility] [address] [id number] [place] [address] Feb, [facility] [address] [id number] [place] [address] Jan, [facility] [address] [id number] [place] [address] Jan, [facility] [address] [facility] [place] [id number] Jan, [facility] [address] [id number] [place] [address] Jan, [facility] [address] [id number] [place] [address] Dec, [facility] [address] [facility] [address] Dec, [facility] [address] [facility] [id number] November, [facility] [address] [id number] [place] [address] November, [facility] [address] [facility] [address] November, [facility] [address] [id number] [place] [address] November, [facility] [id number] [place] [address] Oct, [facility] [address] [facility] [id number] Oct, [facility] [address] [facility]07757[facility] [id number] Oct, [facility] [address] [id number] [place] [address] Oct, [facility] [address] [facility]07757[facility] [id number] Oct, [facility] [address] [id number] [place] [address] Oct, [facility] [address] [facility]07757[facility] [id number] Oct, [facility] [address] [id number] [place] [address] Oct, [facility] [address] [id number] [place] [address] Oct, [facility] [address] [facility] [address] Oct, [facility] [address] [id number] [place] [address] Oct, [facility] [address] [facility]07757[facility] [id number] Oct, [facility] [address] [facility] [address] Sep, [facility] [address] [id number] [place] [address] Sep, [facility] [id number] [place] [address] Sep, [facility] [address] [facility] [id number] Sep, [facility] [id number] [id number] Sep, [facility] [id number] [place] [address] Sep, [facility] [id number] [id number] Aug, [facility] [id number] [place] [address] Aug, [facility] [id number] [id number] Aug, [facility] [id number] [place] [address] Aug, [facility] [id number] [place] [address] Aug, [facility] [id number] [place] [address] Aug, [facility] [address] [id number] [id number] Jul, [facility] [id number] [place] [address] Jul, [facility] [address] [facility]07[place] [id number] Jun, [facility] [id number] [place] [address] Jun, [facility] [address] [id number] [address] May, [facility] [id number] [place] [address] May, [facility] [address] [facility] [id number] Apr, [facility] [id number] [place] [address] Apr, [facility] [address] [facility] [id number] Mar, [facility] [place] [facility] [id number] [place] [address] Feb, [facility] [id number] [id number] Feb, [facility] [id number] [id number] Feb, [facility] [id number] [place] [address], [place] [id number] Feb, [facility] [place] [facility] [id number] [place] [address] Jan, [facility] [address] [id number] Jan, [facility] [id number] [place] [address], [place] [id number] Jan, [facility] [id number] [place] [address] Jan, [facility] [id number] [address] November, [facility] [id number] [place] [address], [place] [id number] November, [facility] [place] [facility] [id number] [place] [address] November, [facility] [id number] [id number] November, [facility] [id number] [place] [address], [place] [id number] Oct, [facility] [id number] [place] [address], [place] [id number] Oct, [facility] [id number] [place] [address], [place] [id number] Sep, [facility] [id number] [place] [address], [place] [id number] Sep, [facility] [id number] [place] [address], [place] [id number] Aug, [facility] [address], [place] [id number] Jul, [facility] [address] [facility]07757[facility] [id number] Jun, [facility] [address] [id number] [place] [address] Jun, [facility] [address] [id number] [place] [address] May, [facility] [id number] [place] [address] May, [facility] [id number] [id number] May, [facility] [place] [id number] [id number] May, [facility] [id number] [place] [address] May, [facility] [id number] [place] [address] May, [facility] [id number] 15[address] May, [facility] [id number] [place] [address] May, [facility] [id number] [address] May, [facility] [address] [id number] [place] [address] May, [facility] [id number] [id number] May, [facility] [address] [id number] [place] [address] May, [facility] [address] [facility]07[place] [id number] May, [facility] [address] [id number] [place] [address] May, [facility] [address] [id number] [place] [address] Apr, [facility] [address] [id number] [place] [address] Apr, [facility] [address] [id number] [place] [address] Apr, [facility] [address] [id number] [place] [address] Apr, [facility] [id number] [place] [address], [place] [id number] Apr, [facility] [id number] [place] [address] Apr, [facility] [id number] [place] [address], [place] [id number] Apr, [facility] [address], [place] [id number] Mar, [facility] [id number] [place] [address], [place] [id number] Mar, [facility] [address], [place] [id number] Feb, [facility] [id number] [place] [address], [place] [id number] Jan, [facility] [address], [place] [id number] Dec, [facility] [id number] [place] [address], [place] [id number] Dec, [facility] [id number] [place] [address], [place] [id number] November, [facility] [address], [place] [id number] November, [facility] [id number] [place] [address], [place] [id number] November, [facility] [address] [id number] [place] [address] November, [facility] [id number] [place] [address], [place] [id number] November, [facility] [address], [place] [id number] November, [facility] [address], [place] [id number] November, [facility] [id number] [id number] Oct, [facility] [id number] [place] [address], [place] [id number] Oct, [facility] [id number] [id number] Oct, [facility] [id number] [place] [address], [place] [id number] Oct, [facility] [address], [place] [id number] Oct, [facility] [id number] [place] [address] Oct, [facility] [address] [id number] [id number] Oct, [facility] [id number], [place] [id number] Oct, [facility] [id number] [place] [address], [place] [id number] Sep, [facility] [id number] [place] [address], [place] [id number] Aug, [facility] [id number] [place] [address], [place] [id number] Aug, [facility] [id number] [place] [address], [place] [id number] Jul, [facility] [id number] [place] [address], [place] [id number] Jul, [facility] [place] [facility] [id number] [place] [address] Jul, [facility] [id number] [place] [address], [place] [id number] Jul, [facility] [address] [address] Jun, [facility] [place] [facility] [id number] [place] [address] Jun, [facility] [address] [address] May, [facility] [address] [id number] [place] [address] Apr, [facility] [address] [id number] [place] [address] Apr, [facility] [address] [id number] [place] [address] Jan, [facility] [address] [id number] [place] [address] Dec, [facility] [address] [id number] [place] [address] Aug, [facility] [address] [id number] [place] [address] Jun, [facility] [address] [id number] [place] [address] Jun, [facility] [id number] [place] [address] Jun, [facility] [address] [id number] [place] [address] Jun, [facility] [address] [id number] [place] [address] Jun, [facility] [address] [id number] [place] [address] May, [facility] [address] [id number] [place] [address] May, [facility] [address] [id number] [place] [address] May, [facility] [address] [id number] [place] [address] Apr, [facility] [address] [id number] [place] [address] Apr, [facility] [address] [id number] [place] [address] Apr, [facility] [address] [id number] [place] [address] Apr, [facility] [address] [facility] [id number] [place] [address] Mar, [facility] [address] [id number] [place] [address] Jun, [facility] [address] [facility] [id number] [place] [address] Jun, [facility] [address] [id number] [place] [address] Jun, IMMUNIZATIONS No Known Immunizations SOCIAL HISTORY Never Assessed REASON FOR VISIT PLAN OF CARE VITAL SIGNS Height 63 in 2014-01-02 Weight 135 lbs 2014-01-02 Temperature 98.1 degrees Fahrenheit 2014-01-02 Heart Rate 84 bpm 2014-01-02 Respiratory Rate 20 2014-01-02 Blood pressure systolic 126 mmHg 2014-01-02 Blood pressure diastolic 80 mmHg 2014-01-02 MEDICATIONS Unknown Medications RESULTS No Results PROCEDURES [...]
--- OUTSIDE RECORDS SUMMARY | 2020-01-13 17:52 | XMS REPORT ---
Author Author Ina Staley Doctor Organization [facility] Address Unknown Phone Unavailable Care Team Providers Care Skin Care Instructor Name Role Phone Migration, Doctor Unavailable Unavailable PROBLEMS Type Condition ICD9-CM Code LYR25-MX Code Onset Dates Condition S tatus SNOMED Code Problem ETOH abuse F10.10 Active 24772372 Problem Mild episode of recurrent major depressive disorder F33.0 Active 411223330 ALLERGIES No Information ENCOUNTERS Encounter Location Date Diagnosis [facility] [address] [address] November, [facility] [address] [facility] [id number] [address] [place] [address] November, Injury of left knee, subsequ ent encounter S89.92XD and Injury of left ankle, subsequent encounter S99.912D [facility] [address] [address] May, [facility] [address] [address] May, Mild episode of recurrent major depressi ve disorder F33.0 ; Elevated blood pressure reading R03.0 ; Screening for hyperlipidemia Z13.220 ; Screening for thyroid disorder Z13.29 ; Screening for diabetes mellitus Z13.1 and History of seizures Z87.898 [facility] [id number] [place] [id number] Jul, [facility] [address] [address] Oct, [facility] [address] [address] Oct, [facility] [address] [id number] [id number] Sep, [facility] [address] [address] Sep, [facility] [address] [id number] [place] [address] Aug, 2014 [facility] [address] [id number] [id number] Aug, 2014 [facility] [address] [id number] [place] [address] Aug, 2014 [facility] [id number] [place] [address] Aug, 2014 [facility] [address] [facility] [id number] Aug, [facility] [id number] [place] [address] Aug, [facility] [id number] [place] [address] Aug, [facility] [address] [id number] [id number] Jul, [facility] [address] [id number] [place] [address] Jul, [facility] [id number] [place] [address] Jul, [facility] [id number] [place] [address] Jul, [facility] [address] [id number] [id number] Jul, [facility] [id number] [place] [address] Jul, [facility] [address] [id number] [place] [address] Jun, [facility] [id number] [place] [address] Jun, [facility] [address] [facility] [id number] Jun, [facility] [id number] [place] [address] Jun, [facility] [address] [facility] [place] [id number] Jun, [facility] [id number] [place] [address] Jun, [facility] [id number] [place] [address] Jun, [facility] [id number] [place] [address] May, [facility] [id number] [place] [address] May, [facility] [address] [id number] [id number] May, [facility] [id number] [place] [address] May, [facility] [id number] [place] [address] Apr, [facility] [id number] [place] [address] Apr, [facility] [address] [id number] [id number] Apr, [facility] [id number] [place] [address] Apr, [facility] [id number] [place] [address] Mar, [facility] [id number] [place] [address] Mar, [facility] [id number] [place] [address] Mar, [facility] [id number] [place] [address] Mar, [facility] [address] [id number] [id number] Mar, [facility] [id number] [place] [address] Mar, [facility] [address] [facility] [place] [id number] Mar, [facility] [address] [id number] [place] [address] Mar, [facility] [address] [id number] [place] [address] Feb, [facility] [address] [id number] [place] [address] Feb, [facility] [address] [id number] [place] [address] Feb, [facility] [address] [id number] [place] [address] Feb, [facility] [address] [id number] [place] [address] Feb, [facility] [address] [id number] [place] [address] Feb, [facility] [address] [facility] [id number] Feb, [facility] [address] [id number] [place] [address] Feb, [facility] [address] [id number] [place] [address] Jan, [facility] [address] [id number] [place] [address] Jan, [facility] [address] [facility] [id number] Jan, [facility] [address] [id number] [place] [address] Jan, [facility] [address] [id number] [place] [address] Dec, [facility] [address] [facility] [id number] Dec, [facility] [address] [facility] [id number] November, [facility] [address] [id number] [place] [address] November, [facility] [address] [facility]757[facility] [id number] November, [facility] [address] [id number] [place] [address] November, [facility] [address] [id number] [place] [address] Oct, [facility] [address] [facility]757[facility] [id number] Oct, [facility] [address] [facility]757[facility] [id number] Oct, [facility] [id number] [place] [address] Oct, [facility] [id number] [id number] Oct, [facility] [id number] [place] [address] Oct, [facility] [id number] [id number] Oct, [facility] [address] [id number] [place] [address] Oct, [facility] [address] [id number] [place] [address] Oct, [facility] [id number] [id number] Oct, [facility] [address] [id number] [place] [address] Oct, [facility] [address] [facility]07757[facility] [id number] Oct, [facility] [id number] [id number] Sep, [facility] [address] [id number] [place] [address] Sep, [facility] [address] [id number] [place] [address] Sep, [facility] [address] [facility]757[facility] [id number] Sep, [facility] [address] [facility]07757[facility] [id number] Sep, [facility] [id number] [place] [address] Sep, [facility] [address] [id number] [id number] Aug, [facility] [id number] [place] [address] Aug, [facility] [id number] [id number] Aug, [facility] [id number] [place] [address] Aug, [facility] [id number] [place] [address] Aug, [facility] [id number] [place] [address] Aug, [facility] [address] [place] [id number] Jul, [facility] [id number] [place] [address] Jul, [facility] [address] [place] [id number] Jun, [facility] [id number] [place] [address] Jun, [facility] [address] [place] [address] May, [facility] [id number] [place] [address] May, [facility] [address] [id number] [id number] Apr, [facility] [id number] [place] [address] Apr, [facility] [address] [place] [id number] Mar, [facility] [place] [facility] [id number] [place] [address] Feb, [facility] [id number] [id number] Feb, [facility] [address] [id number] [id number] Feb, [facility] [id number] [place] [address], [place] [id number] Feb, [facility] [place] [facility] [id number] [place] [address] Jan, [facility] [id number] [place] [address], [place] [id number] Jan, [facility] [id number] [place] [address], [place] [id number] Jan, [facility] [place] [facility] [id number] [place] [address] Jan, [facility] [id number] [place] [address], [place] [id number] November, [facility] [id number] [id number] November, [facility] [place] [facility] [id number] [place] [address] November, [facility] [id number] [id number] November, [facility] [address] [id number] [id number] Oct, [facility] [id number] [place] [address], [place] [id number] Oct, [facility] [address] [id number] [id number] Sep, [facility] [id number] [place] [address], [place] [id number] Sep, [facility] [id number] [id number] Aug, [facility] [address] [id number] [id number] Jul, [facility] [address], [place] [id number] 05 Jun, 2012 [facility] [address] [id number] [place] [address] Jun, [facility] [address] [id number] [place] [address] May, [facility] [address] [id number] [place] [address] May, [facility] [address] [id number] [id number] May, [facility] [id number] [id number] May, [facility] [id number] [place] [address] May, [facility] [address] [id number] [place] [address] May, [facility] [id number] [place] [address] [id number] May, [facility] [id number] [place] [address] May, [facility] [address] [id number] [id number] May, [facility] [address] [id number] [place] [address] May, [facility] [address] [place] [id number] May, [facility] [id number] [place] [address] May, [facility] [address] [facility] [id number] May, [facility] [id number] [place] [address] May, [facility] [address] [id number] [place] [address] Apr, [facility] [id number] [place] [address] Apr, [facility] [address] [id number] [place] [address] Apr, [facility] [place] [facility] [address] [id number] [place] [address] Apr, [facility] [address] [id number] [id number] Apr, [facility] [place] [facility] [id number] [place] [address] Apr, [facility] [id number] [place] [address], [place] [id number] Apr, [facility] [id number] [place] [address], [place] [id number] Mar, [facility] [id number] [place] [address], [place] [id number] Mar, [facility] [id number] [place] [address], [place] [id number] Feb, [facility] [address], [place] [id number] Jan, [facility] [id number] [place] [address], [place] [id number] Dec, [facility] [address], [place] [id number] Dec, [facility] [id number] [place] [address], [place] [id number] November, [facility] [id number] [place] [address], [place] [id number] November, [facility] [address], [place] [id number] November, [facility] [place] [facility] [address] [id number] [place] [address] November, [facility] [address], [place] [id number] November, [facility] [id number] [place] [address], [place] [id number] November, [facility] [address], [place] [id number] November, [facility] [address], [place] [id number] Oct, [facility] [address] [facility]757[facility] [id number] Oct, [facility] [address] [id number] [id number] Oct, [facility] [address] [facility]757[facility], [place] [id number] Oct, [facility] [id number] [place] [address], [place] [id number] Oct, [facility] [place] [facility] [id number] [place] [address] Oct, [facility] [id number] [id number] Oct, [facility] [address] [id number] [id number] Oct, [facility] [address] [id number] [id number] Sep, [facility] [address] [id number] [id number] Aug, [facility] [address] [id number] [id number] Aug, [facility] [id number] [place] [address], [place] [id number] Jul, [facility] [address] [id number] [id number] Jul, [facility] [facility] [id number] [place] [address] Jul, [facility] [id number] [place] [address], [place] [id number] Jul, [facility] [place] [facility] [facility] [id number] [place] [address] Jun, [facility] [facility] [address] [address] Jun, [facility] [facility] [id number] [place] [address] May, [facility] [id number] [place] [address] Apr, [facility] [address] [id number] [place] [address] Apr, [facility] [address] [id number] [place] [address] Jan, [facility] [address] [id number] [place] [address] Dec, [facility] [address] [id number] [place] [address] Aug, [facility] [address] [id number] [place] [address] Jun, [facility] [address] [id number] [place] [address] Jun, [facility] [address] [id number] [place] [address] Jun, [facility] [address] [id number] [place] [address] Jun, [facility] [address] [id number] [place] [address] Jun, [facility] [address] [id number] [place] [address] 15 May, 2010 [facility] [address] [id number] [place] [address] May, [facility] [address] [id number] [place] [address] May, [facility] [address] [id number] [place] [address] Apr, [facility] [address] [id number] [place] [address] Apr, [facility] [address] [id number] [place] [address] Apr, [facility] [address] [id number] [place] [address] Apr, [facility] [address] [id number] [place] [address] 10 Mar, 2010 [facility] [address] [id number] [place] [address] Jun, [facility] [address] [id number] [place] [address] Jun, [facility] [address] [id number] [place] [address] Jun, IMMUNIZATIONS No Known Immunizations SOCIAL HISTORY [...]
--- OUTSIDE RECORDS SUMMARY | 2020-01-13 17:52 | XMS REPORT ---
Author Author Elba Ina [facility] Organization [facility] Address [address], [place] [id number] Care Team Providers Care Chief Nurse Anesthetist Name Role Phone Elba [facility] Unavailable PROBLEMS Type Condition ICD9-CM Code SZU47-DP Code Onset Dates Condition S tatus SNOMED Code Problem ETOH abuse F10.10 Active 24648263 Problem Mild episode of recurrent major depressive disorder F33.0 Active [id number] ALLERGIES No Information ENCOUNTERS Encounter Location Date Diagnosis [facility] [address] [id number] [place] [address] November, [facility] [address] [address] November, Injury of left knee, subsequ ent encounter S89.92XD and Injury of left ankle, subsequent encounter S99.912D [facility] [address] [address] May, [facility] [address] [id number] [address] [place] [address] May, Mild episode of recurrent ma shawna depressive disorder F33.0 ; Elevated blood pressure reading R03.0 ; Screening for hyperlipidemia Z13.220 ; Screening for thyroid disorder Z13.29 ; Screening for diabetes mellitus Z13.1 and History of seizures Z87.898 [facility] [address] [id number] [id number] Jul, [facility] [address] [id number] [address] [place] [address] Oct, [facility] [address] [id number] [address] [place] [address] Oct, [facility] [address] [id number] [id number] Sep, [facility] [address] [id number] [address] [place] [address], [place] [address] Sep, [facility] [address] [id number] [address] [place] [address], [place] [address] Aug, [facility] [place] [address] [id number] [place] [id number] Aug, [facility] [address] [id number] [address] [place] [address], [place] [address] Aug, [facility] [address] [id number] [address] [place] [address], [place] [address] Aug, [facility] [place] [address] [id number] [place] [id number] Aug, [facility] [address] [id number] [address] [place] [address], [place] [address] Aug, [facility] [address] [id number] [address] [place] [address], [place] [address] Aug, [facility] [place] [address] [id number] [place] [id number] Jul, [facility] [address] [id number] [address] [place] [address], [place] [address] Jul, [facility] [address] [id number] [address] [place] [address], [place] [address] Jul, [facility] [address] [id number] [address] [place] [address], [place] [address] Jul, [facility] [place] [address] [id number] [place] [id number] Jul, [facility] [address] [id number] [address] [place] [address], [place] [address] Jul, [facility] [address] [id number] [address] [place] [address], [place] [address] Jun, [facility] [address] [id number] [address] [place] [address], [place] [address] Jun, [facility] [place] [address] [id number] [place] [id number] Jun, [facility] [address] [id number] [facility] [place] [address] Jun, [facility] [place] [address] [id number] [place] [id number] Jun, [facility] [address] [id number] [address] [place] [address], [place] [address] Jun, [facility] [address] [id number] [address] [place] [address], [place] [address] Jun, [facility] [address] [id number] [address] [place] [address], [place] [address] May, [facility] [address] [id number] [address] [place] [address], [place] [address] May, [facility] [place] [address] [id number] [place] [id number] May, [facility] [address] [id number] [address] [place] [address], [place] [address] May, [facility] [address] [id number] [address] [place] [address], [place] [address] Apr, [facility] [address] [id number] [address] [place] [address], [place] [address] Apr, [facility] [place] [address] [id number] [place] [id number] Apr, [facility] [address] [id number] [address] [place] [address], [place] [address] Apr, [facility] [address] [id number] [address] [place] [address], [place] [address] Mar, [facility] [address] [id number] [address] [place] [address], [place] [address] Mar, [facility] [address] [id number] [facility]note 3][facility] [place] [address] Mar, [facility] [address] [id number] [facility] [place] [address] Mar, [facility] [place] [address] [id number] [place] [id number] Mar, [facility] [address] [id number] [facility] [place] [address] Mar, [facility] [place] [address] [id number] [place] [id number] Mar, [facility] [address] [id number] [address] [place] [address], [place] [address] Mar, [facility] [address] [id number] [address] [place] [address], [place] [address] Feb, [facility] [address] [id number] [address] [place] [address], [place] [address] Feb, [facility] [address] [id number] [address] [place] [address], [place] [address] Feb, [facility] [address] [id number] [address] [place] [address], [place] [address] Feb, [facility] [address] [id number] [address] [place] [address], [place] [address] Feb, [facility] [address] [id number] [address] [place] [address], [place] [address] Feb, [facility] [place] [address] [id number] [place] [id number] Feb, [facility] [address] [id number] [address] [place] [address], [place] [address] Feb, [facility] [address] [id number] [address] [place] [address], [place] [address] Jan, [facility] [address] [id number] [facility] [place] [address] Jan, [facility] [place] [address] [id number] [place] [id number] Jan, [facility] [address] [id number] [address] [place] [address], [place] [address] Jan, [facility] [address] [id number] [address] [place] [address], [place] [address] Dec, [facility] [place] [address] [id number] [place] [id number] Dec, [facility] [place] [address] [id number] [place] [id number] November, [facility] [address] [id number] [address] [place] [address], [place] [address] November, [facility] [place] [address] [id number] [place] [id number] November, [facility] [address] [id number] [address] [place] [address], [place] [address] November, [facility] [address] [id number] [address] [place] [address], [place] [address] Oct, [facility] [place] [address] [id number] [place] [id number] Oct, [facility] [place] [address] [id number] [place] [id number] Oct, [facility] [address] [id number] [address] [place] [address], [place] [address] Oct, [facility] [place] [address] [id number] [place] [id number] Oct, [facility] [address] [id number] [address] [place] [address], [place] [address] Oct, [facility] [place] [address] [id number] [place] [id number] Oct, [facility] [address] [id number] [address] [place] [address], [place] [address] Oct, [facility] [address] [id number] [address] [place] [address], [place] [address] Oct, [facility] [place] [address] [id number] [place] [id number] Oct, [facility] [address] [id number] [address] [place] [address], [place] [address] Oct, [facility] [place] [address] [id number] [place] [id number] Oct, [facility] [place] [address] [id number] [place] [id number] Sep, [facility] [address] [id number] [address] [place] [address], [place] [address] Sep, [facility] [address] [id number] [address] [place] [address], [place] [address] Sep, [facility] [place] [address] [id number] [place] [id number] Sep, [facility] [place] [address] [id number] [place] [id number] Sep, [facility] [address] [facility] [id number] [address] [place] [address] Sep, [facility] [place] [address] [id number] [place] [id number] Aug, [facility] [address] [facility] [id number] [address] [place] [address] Aug, [facility] [place] [address] [id number] [place] [id number] Aug, [facility] [address] [id number] [address] [place] [address] Aug, [facility] [address] [facility] [id number] [address] [place] [address] Aug, [facility] [address] [facility] [id number] [address] [place] [address] Aug, [facility] [place] [address] [id number] [place] [id number] Jul, [facility] [address] [id number] [address] [place] [address] Jul, [facility] [place] [address] [id number] [place] [id number] Jun, [facility] [address] [facility] [id number] [address] [place] [address] Jun, [facility] [place] [address] [id number] [place] [id number] May, [facility] [address] [facility] [id number] [address] [place] [address] May, [facility] [place] [address] [id number] [place] [id number] Apr, [facility] [address] [id number] [address] [place] [address] Apr, [facility] [place] [address] [id number] [place] [id number] Mar, [facility] [address] [facility] [id number] [address] [place] [address] Feb, [facility] [place] [address] [id number] [place] [id number] Feb, [facility] [place] [address] [id number] [place] [id number] Feb, [facility] [place] [address] [id number] [place] [id number] Feb, [facility] [address] [id number] [address] [place] [address] Jan, [facility] [place] [address] [id number] [place] [id number] Jan, [facility] [place] [address] [id number] [place] [id number] Jan, [facility] [address] [facility] [id number] [address] [place] [address] Jan, [facility] [place] [address] [id number] [place] [id number] November, [facility] [place] [address] [id number] [place] [id number] November, [facility] [address] [id number] [address] [place] [address] November, [facility] [place] [address] [id number] [place] [id number] November, [facility] [place] [address] [id number] [place] [id number] Oct, [facility] [place] [address] [id number] [place] [id number] Oct, [facility] [place] [address] [id number] [place] [id number] Sep, [facility] [place] [address] [id number] [place] [id number] Sep, [facility] [place] [address] [id number] [place] [id number] Aug, [facility] [place] [address] [id number] [place] [id number] Jul, [facility] [place] [address] [id number] [place] [id number] Jun, [facility] [address] [facility] [id number] [address] [place] [address] Jun, [facility] [address] [facility] [id number] [address] [place] [address] May, [facility] [address] [facility] [id number] [address] [place] [address] May, [facility] [place] [address] [id number] [place] [id number] May, [facility] [place] [address] [id number] [place] [id number] May, [facility] [address] [facility] [id number] [address] [place] [address] May, [facility] [address] [facility] [id number] [address] [place] [address] May, [facility] [place] [address] [id number] [place] [id number] May, [facility] [address] [id number] [address] [place] [address] May, [facility] [place] [address] [id number] [place] [id number] May, [facility] [address] [id number] [address] [place] [address], [place] [address] May, [facility] [place] [address] [id number] [place] [id number] May, [facility] [address] [id number] [address] [place] [address] May, [facility] [place] [address] [id number] [place] [id number] May, [facility] [address] [facility] [id number] [address] [place] [address] May, [facility] [address] [facility] [id number] [address] [place] [address] Apr, [facility] [address] [facility] [id number] [address] [place] [address] Apr, [facility] [address] [facility] [id number] [address] [place] [address] Apr, [facility] [address] [facility] [id number] [address] [place] [address] Apr, [facility] [place] [address] [id number] [place] [id number] Apr, [facility] [address] [id number] [address] [place] [address] Apr, [facility] [place] [address] [id number] [place] [id number] Apr, [facility] [place] [address] [id number] [place] [id number] Mar, [facility] [place] [address] [id number] [place] [id number] Mar, [facility] [place] [address] [id number] [place] [id number] Feb, [facility] [place] [address] [id number] [place] [id number] Jan, [facility] [place] [address] [id number] [place] [id number] Dec, [facility] [place] [address] [id number] [place] [id number] Dec, [facility] [place] [address] [id number] [place] [id number] November, [facility] [place] [address] [id number] [place] [id number] November, [facility] [place] [address] [id number] [place] [id number] November, [facility] [address] [facility] [id number] [address] [place] [address] November, [facility] [place] [address] [id number] [place] [id number] November, [facility] [place] [address] [id number] [place] [id number] November, [facility] [place] [address] [id number] [place] [id number] November, [facility] [place] [address] [id number] [place] [id number] Oct, [facility] [place] [address] [id number] [place] [id number] Oct, [facility] [place] [address] [id number] [place] [id number] Oct, [facility] [place] [address] [id number] [place] [id number] Oct, [facility] [place] [address] [id number] [place] [id number] Oct, [facility] [address] [facility] [id number] [place] [address] Oct, [facility] [place] [address] [id number] [place] [id number] Oct, [facility] [place] [address] [id number] [place] [id number] Oct, [facility] [place] [address] [id number] [place] [id number] Sep, [facility] [place] [address] [id number] [place] [id number] Aug, [facility] [place] [address] [id number] [place] [id number] Aug, [facility] [place] [address] [id number] [place] [id number] Jul, [facility] [place] [address] [id number] [place] [id number] Jul, [facility] [address] [facility] [id number] [address] [place] [address] Jul, [facility] [place] [address] [id number] [place] [id number] Jul, [facility] [address] [facility] [id number] [address] [place] [address] Jun, [facility] [address] [facility] [id number] [address] [place] [address] Jun, [facility] [address] [facility] [id number] [address] [place] [address] May, [facility] [address] [facility] [id number] [address] [place] [address] Apr, [facility] [address] [facility] [id number] [address] [place] [address] Apr, [facility] [address] [facility] [id number] [address] [place] [address] Jan, [facility] [address] [facility] [id number] [address] [place] [address] Dec, [facility] [address] [facility] [id number] [address] [place] [address] Aug, [facility] [address] [id number] [address] [place] [address], [place] [address] 23 Jun, 2010 [facility] [address] [id number] [address] [place] [address], [place] [address] Jun, [facility] [address] [id number] [address] [place] [address], [place] [address] Jun, [facility] [address] [id number] [address] [place] [address], [place] [address] Jun, [facility] [address] [id number] [address] [place] [address], [place] [address] Jun, [facility] [address] [id number] [address] [place] [address], [place] [address] 15 May, 2010 [facility] [address] [id number] [address] [place] [address], [place] [address] May, [facility] [address] [id number] [address] [place] [id number] May, [facility] [address] [id number] [address] [place] [address], [place] [address] Apr, [facility] [address] [id number] [address] [place] [id number] Apr, [facility] [address] [id number] [address] [place] [id number] Apr, [facility] [address] [id number] [address] [place] [address] Apr, [facility] [address] [id number] [address] [place] [id number] 10 Mar, 2010 [facility] [address] [id number] [address] [place] [id number] 17 Jun, 2009 [facility] [address] [id number] [address] [place] [id number] 14 Jun, 2009 [facility] [address] [id number] [address] [place] [id number] Jun, IMMUNIZATIONS No Known Immunizations SOCIAL HISTORY [...]
--- OUTSIDE RECORDS SUMMARY | 2020-01-13 17:52 | XMS REPORT ---
Author Author Ina DEJESUS [address] Address [address] [place] [address] Care Team Providers Care Implementation Architect Name Role Phone SANDY DEJESUS Unavailable PROBLEMS Type Condition ICD9-CM Code [id number] Code Onset Dates Condition S tatus SNOMED Code Problem ETOH abuse F10.10 Active 97500127 Problem Mild episode of recurrent major depressive disorder F33.0 Active [id number] ALLERGIES No Information ENCOUNTERS Encounter Location Date Diagnosis [facility] [address] [address] November, [facility] [address] [facility] [id number] [place] [address] November, Injury of left knee, subsequ ent encounter S89.92XD and Injury of left ankle, subsequent encounter S99.912D [facility] [address] [address] May, [facility] [address] [address] May, Mild episode of recurrent major depressi ve disorder F33.0 ; Elevated blood pressure reading R03.0 ; Screening for hyperlipidemia Z13.220 ; Screening for thyroid disorder Z13.29 ; Screening for diabetes mellitus Z13.1 and History of seizures Z87.898 [facility] [address] [id number] [place] [id number] Jul, [facility] [address] [address] Oct, [facility] [address] [address] Oct, [facility] [id number] [place] [id number] Sep, [facility] [address] [id number] [place] [address] Sep, [facility] [id number] [place] [address] Aug, [facility] [place] [address] [id number] [id number] Aug, [facility] [id number] [place] [address] Aug, 2014 [facility] [id number] [place] [address] Aug, [facility] [address] [id number] [id number] Aug, [facility] [id number] [place] [address] Aug, [facility] [id number] [place] [address] Aug, [facility] [address] [id number] [id number] Jul, [facility] [id number] [place] [address] Jul, [facility] [id number] [place] [address] Jul, [facility] [address] [id number] [place] [address] Jul, [facility] [address] [id number] [id number] Jul, [facility] [id number] [place] [address] Jul, [facility] [id number] [place] [address] Jun, [facility] [id number] [place] [address] Jun, [facility] [address] [facility] [id number] Jun, [facility] [address] [id number] [place] [address] Jun, [facility] [address] [facility] [id number] Jun, [facility] [address] [id number] [place] [address] Jun, [facility] [address] [id number] [place] [address] Jun, [facility] [address] [id number] [place] [address] May, [facility] [address] [id number] [place] [address] May, [facility] [address] [facility] [id number] May, [facility] [address] [id number] [place] [address] May, [facility] [address] [id number] [place] [address] Apr, [facility] [address] [id number] [place] [address] Apr, [facility] [address] [facility] [id number] Apr, [facility] [address] [id number] [place] [address] Apr, [facility] [address] [id number] [place] [address] Mar, [facility] [address] [id number] [place] [address] Mar, [facility] [address] [id number] [place] [address] Mar, [facility] [address] [id number] [place] [address] Mar, [facility] [address] [id number] [place] [id number] Mar, [facility] [address] [id number] [place] [address] Mar, [facility] [address] [id number] [place] [id number] Mar, [facility] [address] [id number] [place] [address] Mar, [facility] [address] [id number] [place] [address] Feb, [facility] [address] [id number] [place] [address] Feb, [facility] [address] [id number] [place] [address] Feb, [facility] [address] [id number] [place] [address] Feb, [facility] [address] [id number] [place] [address] Feb, [facility] [address] [id number] [place] [address] Feb, [facility] [address] [facility] [id number] Feb, [facility] [address] [id number] [place] [address] Feb, [facility] [address] [id number] [place] [address] Jan, [facility] [address] [id number] [place] [address] Jan, [facility] [address] [id number] [place] [id number] Jan, [facility] [address] [id number] [place] [address] Jan, [facility] [address] [id number] [place] [address] Dec, [facility] [address] [facility] [address] Dec, [facility] [address] [facility] [address] November, [facility] [address] [id number] [place] [address] November, [facility] [address] [facility] [id number] November, [facility] [address] [id number] [place] [address] November, [facility] [id number] [place] [address] Oct, [facility] [address] [facility] [id number] Oct, [facility] [address] [facility] 130137542 Oct, [facility] [address] [id number] [place] [address] Oct, [facility] [address] [facility] [id number] Oct, [facility] [address] [id number] [place] [address] Oct, [facility] [address] [facility] [id number] Oct, [facility] [address] [id number] [place] [address] Oct, [facility] [address] [id number] [place] [address] Oct, [facility] [address] [facility] 796[address]87 Oct, [facility] [address] [id number] [place] [address] Oct, [facility] [address] [facility] [id number] Oct, [facility] [address] [facility] [id number] Sep, [facility] [address] [id number] [place] [address] Sep, [facility] [id number] [place] [address] Sep, [facility] [address] [facility]757[facility] [id number] Sep, [facility] [id number] [id number] Sep, [facility] [id number] [place] [address] Sep, [facility] [id number] [id number] Aug, [facility] [id number] [place] [address] Aug, [facility] [id number] [id number] Aug, [facility] [id number] [place] [address] Aug, [facility] [id number] [place] [address] Aug, [facility] [id number] [place] [address] Aug, [facility] [address] [id number] [id number] Jul, [facility] [id number] [place] [address] Jul, [facility] [address] [facility] [id number] Jun, [facility] [id number] [place] [address] Jun, [facility] [address] [id number] [id number] May, [facility] [id number] [place] [address] May, [facility] [address] [facility] [id number] Apr, [facility] [id number] [place] [address] Apr, [facility] [address] [facility]757[facility] [id number] Mar, [facility] [place] [facility] [id number] [place] [address] Feb, [facility] [id number] [id number] Feb, [facility] [id number] [id number] Feb, [facility] [id number] [place] [address], [place] [id number] Feb, [facility] [place] [facility] [id number] [place] [address] Jan, [facility] [id number] [id number] Jan, [facility] [id number] [place] [address], [place] [id number] Jan, [facility] [id number] [place] [address] Jan, [facility] [id number] [id number] November, [facility] [id number] [place] [address], [place] [id number] November, [facility] [place] [facility] [id number] [place] [address] November, [facility] [id number] [id number] November, [facility] [id number] [place] [address], [place] [id number] Oct, [facility] [id number] [place] [address], [place] [id number] Oct, [facility] [id number] [place] [address], [place] 045160119 Sep, [facility] [id number] [place] [address], [place] [id number] Sep, [facility] [id number] [place] [address], [place] [id number] Aug, [facility] [address], [place] [id number] Jul, [facility] [address] [facility]757[facility] [id number] Jun, [facility] [address] [id number] [place] [address] Jun, [facility] [address] [id number] [place] [address] May, [facility] [id number] [place] [address] May, [facility] [id number] [place] [id number] May, [facility] [id number] [id number] May, [facility] [id number] [place] [address] May, [facility] [id number] [place] [address] May, [facility] [address] [id number] [id number] May, [facility] [id number] [place] [address] May, [facility] [address] [id number] [id number] May, [facility] [address] [id number] [place] [address] May, [facility] [address] [id number] [id number] May, [facility] [address] [id number] [place] [address] May, [facility] [address] [facility] [id number] May, [facility] [address] [id number] [place] [address] May, [facility] [address] [id number] [place] [address] Apr, [facility] [address] [id number] [place] [address] Apr, [facility] [address] [id number] [place] [address] Apr, [facility] [address] [id number] [place] [address] Apr, [facility] [id number] [place] [address], [place] [id number] Apr, [facility] [id number] [place] [address] Apr, [facility] [id number] [place] [address], [place] [id number] Apr, [facility] [address], [place] [id number] Mar, [facility] [id number] [place] [address], [place] [id number] Mar, [facility] [address], [place] [id number] Feb, [facility] [id number] [place] [address], [place] 135492558 Jan, [facility] [address], [place] [id number] Dec, [facility] [id number] [place] [address], [place] [id number] Dec, [facility] [id number] [place] [address], [place] [id number] November, [facility] [address], [place] [id number] November, [facility] [id number] [place] [address], [place] [id number] November, [facility] [address] [id number] [place] [address] November, [facility] [id number] [place] [address], [place] [id number] November, [facility] [address], [place] [id number] November, [facility] [address], [place] 010097798 November, [facility] [id number] [id number] Oct, [facility] [id number] [place] [address], [place] [id number] Oct, [facility] [id number] 949842451 Oct, [facility] [id number] [place] [address], [place] [id number] Oct, [facility] [address], [place] [id number] Oct, [facility] [id number] [place] [address] Oct, [facility] [id number] [id number] Oct, [facility] [id number] [id number] Oct, [facility] [id number] [place] [address], [place] [id number] Sep, [facility] [id number] [place] [address], [place] [id number] Aug, [facility] [id number] [place] [address], [place] [id number] Aug, [facility] [id number] [place] [address], [place] [id number] Jul, [facility] [id number] [place] [address], [place] [id number] Jul, [facility] [place] [facility] [id number] [place] [address] Jul, [facility] [id number] [place] [address], [place] [id number] Jul, [facility] [address] [address] Jun, [facility] [place] [facility] [id number] [place] [address] Jun, [facility] [address] [address] May, [facility] [address] [id number] [place] [address] Apr, [facility] [address] [id number] [place] [address] Apr, [facility] [address] [id number] [place] [address] Jan, [facility] [address] [id number] [place] [address] Dec, [facility] [address] [id number] [place] [address] Aug, [facility] [address] [id number] [place] [address] Jun, [facility] [address] [id number] [place] [address] Jun, [facility] [id number] [place] [address] Jun, [facility] [address] [id number] [place] [address] Jun, [facility] [address] [id number] [place] [address] Jun, [facility] [address] [id number] [place] [address] May, [facility] [address] [id number] [place] [address] May, [facility] [address] [id number] [place] [address] May, [facility] [address] [id number] [place] [address] Apr, [facility] [address] [id number] [place] [address] Apr, [facility] [address] [id number] [place] [address] Apr, [facility] [address] [id number] [place] [address] Apr, [facility] [address] [facility] [id number] [place] [address] Mar, [facility] [address] [id number] [place] [address] Jun, [facility] [address] [facility] [id number] [place] [address] 14 Jun, 2009 [facility] [address] [id number] [place] [address] Jun, IMMUNIZATIONS No Known Immunizations SOCIAL HISTORY Never Assessed REASON FOR VISIT PLAN OF CARE VITAL SIGNS Height 63 in 2013-11-15 Weight 137 lbs 2013-11-15 Temperature 98.7 degrees Fahrenheit 2013-11-15 Heart Rate 80 bpm 2013-11-15 Respiratory Rate 20 2013-11-15 Blood pressure systolic 118 mmHg 2013-11-15 Blood pressure diastolic 78 mmHg 2013-11-15 MEDICATIONS Unknown Medications RESULTS No Results PROCEDURES Procedure Date Ordered Result Body Site DRUG SCREEN, QUALITATE/MULTI November 15, 2013 INSTRUCTIONS MEDICATIONS ADMINISTERED No Known Medications [...]
--- OUTSIDE RECORDS SUMMARY | 2020-01-13 17:53 | XMS REPORT ---
Author Author Ina DEJESUS [facility] Address [address] [place] [address] Care Team Providers Care Cigarette Seller Name Role Phone SANDY DEJESUS Unavailable PROBLEMS Type Condition ICD9-CM Code PXK43-SD Code Onset Dates Condition S tatus SNOMED Code Problem ETOH abuse F10.10 Active 33405993 Problem Mild episode of recurrent major depressive disorder F33.0 Active [id number] ALLERGIES No Information ENCOUNTERS Encounter Location Date Diagnosis [facility] [address] [id number] [address] [place] [address] November, [facility] [address] [id number] [address] [place] [address] November, Injury of left knee, subsequ ent encounter S89.92XD and Injury of left ankle, subsequent encounter S99.912D [facility] [address] [id number] [address] [place] [address] May, [facility] [address] [id number] [address] [place] [address] May, Mild episode of recurrent ma shawna depressive disorder F33.0 ; Elevated blood pressure reading R03.0 ; Screening for hyperlipidemia Z13.220 ; Screening for thyroid disorder Z13.29 ; Screening for diabetes mellitus Z13.1 and History of seizures Z87.898 [facility] [address] [facility] [id number] [place] [id number] Jul, [facility] [address] [facility] [id number] [address] [place] [address] Oct, [facility] [address] [facility] [id number] [address] [place] [address] Oct, [facility] [address] [facility] [id number] [place] [id number] Sep, [facility] [address] [id number] [address] [place] [address], [place] [address] Sep, [facility] [address] [id number] [address] [place] [address], [place] [address] Aug, [facility] [place] [address] [id number] [place] [id number] Aug, [facility] [address] [id number] [address] [place] [address], [place] [address] Aug, [facility] [address] [id number] [address] [place] [address], [place] [address] Aug, [facility] [place] [address] [id number] [place] [id number] Aug, [facility] [address] [id number] [address] [place] [address] Aug, [facility] [address] [id number] [address] [place] [address] Aug, [facility] [place] [address] [id number] [place] [id number] Jul, [facility] [address] [id number] [address] [place] [address] Jul, [facility] [address] [id number] [address] [place] [address] Jul, [facility] [address] [id number] [address] [place] [address] Jul, [facility] [place] [address] [id number] [place] [id number] Jul, [facility] [address] [id number] [address] [place] [address] Jul, [facility] [address] [id number] [address] [place] [address] Jun, [facility] [address] [id number] [address] [place] [address] Jun, [facility] [place] [address] [id number] [place] [id number] Jun, [facility] [address] [id number] [address] [place] [address], [place] [address] Jun, [facility] [place] [address] [id number] [place] [id number] Jun, [facility] [address] [id number] [address] [place] [address], [place] [address] Jun, [facility] [address] [id number] [address] [place] [address], [place] [address] Jun, [facility] [address] [id number] [address] [place] [address], [place] [address] May, [facility] [address] [id number] [address] [place] [address], [place] [address] May, [facility] [place] [address] [id number] [place] [id number] May, [facility] [address] [id number] [address] [place] [address], [place] [address] May, [facility] [address] [id number] [address] [place] [address], [place] [address] Apr, [facility] [address] [id number] [address] [place] [address], [place] [address] Apr, [facility] [place] [address] [id number] [place] [id number] Apr, [facility] [address] [id number] [address] [place] [address], [place] [address] Apr, [facility] [address] [id number] [address] [place] [address], [place] [address] Mar, [facility] [address] [id number] [address] [place] [address], [place] [address] Mar, [facility] [address] [id number] [address] [place] [address], [place] [address] Mar, [facility] [address] [id number] [facility] [place] [address] Mar, [facility] [place] [address] [id number] [place] [id number] Mar, [facility] [address] [id number] [facility] [place] [address] Mar, [facility] [place] [address] [id number] [place] [id number] Mar, [facility] [address] [id number] [facility] [place] [address] Mar, [facility] [address] [id number] [address] [place] [address], [place] [address] Feb, [facility] [address] [id number] [address] [place] [address], [place] [address] Feb, [facility] [address] [id number] [address] [place] [address], [place] [address] Feb, [facility] [address] [id number] [address] [place] [address], [place] [address] Feb, [facility] [address] [id number] [address] [place] [address], [place] [address] Feb, [facility] [address] [id number] [address] [place] [address], [place] [address] Feb, [facility] [place] [address] [id number] [place] [id number] Feb, [facility] [address] [id number] [address] [place] [address], [place] [address] Feb, [facility] [address] [id number] [address] [place] [address], [place] [address] Jan, [facility] [address] [id number] [facility] [place] [address] Jan, [facility] [place] [address] [id number] [place] [id number] Jan, [facility] [address] [id number] [address] [place] [address], [place] [address] Jan, [facility] [address] [id number] [address] [place] [address], [place] [address] Dec, [facility] [place] [address] [id number] [place] [id number] Dec, [facility] [place] [address] [id number] [place] [id number] November, [facility] [address] [id number] [address] [place] [address], [place] [address] November, [facility] [place] [address] [id number] [place] [id number] November, [facility] [address] [id number] [address] [place] [address], [place] [address] November, [facility] [address] [id number] [address] [place] [address], [place] [address] Oct, [facility] [place] [address] [id number] [place] [id number] Oct, [facility] [place] [address] [id number] [place] [id number] Oct, [facility] [address] [id number] [address] [place] [address], [place] [address] Oct, [facility] [place] [address] [id number] [place] [id number] Oct, [facility] [address] [id number] [address] [place] [address], [place] [address] Oct, [facility] [place] [address] [id number] [place] [id number] Oct, [facility] [address] [id number] [address] [place] [address], [place] [address] Oct, [facility] [address] [id number] [address] [place] [address], [place] [address] Oct, [facility] [place] [address] [id number] [place] [id number] Oct, [facility] [address] [id number] [address] [place] [address], [place] [address] Oct, [facility] [place] [address] [id number] [place] [id number] Oct, [facility] [place] [address] [id number] [place] [id number] Sep, [facility] [address] [id number] [address] [place] [address], [place] [address] Sep, [facility] [address] [id number] [address] [place] [address], [place] [address] Sep, [facility] [place] [address] [id number] [place] [id number] Sep, [facility] [place] [address] [id number] [place] [id number] Sep, [facility] [address] [id number] [address] [place] [address] Sep, [facility] [place] [address] [id number] [place] [id number] Aug, [facility] [address] [facility] [id number] [address] [place] [address] Aug, [facility] [place] [address] [id number] [place] [id number] Aug, [facility] [address] [id number] [address] [place] [address] Aug, [facility] [address] [facility] [id number] [address] [place] [address], [place] [address] Aug, [facility] [address] [facility] [id number] [address] [place] [address] Aug, [facility] [place] [address] [id number] [place] [id number] Jul, [facility] [address] [facility] [id number] [address] [place] [address] Jul, [facility] [place] [address] [id number] [place] [id number] Jun, [facility] [address] [id number] [address] [place] [address] Jun, [facility] [place] [address] [id number] [place] [id number] May, [facility] [address] [id number] [address] [place] [address] May, [facility] [place] [address] [id number] [place] [id number] Apr, [facility] [address] [id number] [address] [place] [address], [place] [address] Apr, [facility] [place] [address] [id number] [place] [id number] Mar, [facility] [address] [id number] [address] [place] [address] Feb, [facility] [place] [address] [id number] [place] [id number] Feb, [facility] [place] [address] [id number] [place] [id number] Feb, [facility] [place] [address] [id number] [place] [id number] Feb, [facility] [address] [id number] [address] [place] [address] Jan, [facility] [place] [address] [id number] [place] [id number] Jan, [facility] [place] [address] [id number] [place] [id number] Jan, [facility] [address] [id number] [address] [place] [address] Jan, [facility] [place] [address] [id number] [place] [id number] November, [facility] [place] [address] [id number] [place] [id number] November, [facility] [address] [id number] [address] [place] [address] November, [facility] [place] [address] [id number] [place] [id number] November, [facility] [place] [address] [id number] [place] [id number] Oct, [facility] [place] [address] [id number] [place] [id number] Oct, [facility] [place] [address] [id number] [place] [id number] Sep, [facility] [place] [address] [id number] [place] [id number] Sep, [facility] [place] [address] [id number] [place] [id number] Aug, [facility] [place] [address] [id number] [place] [id number] Jul, [facility] [place] [address] [id number] [place] [id number] Jun, [facility] [address] [facility] [id number] [address] [place] [address] Jun, [facility] [address] [facility] [id number] [address] [place] [address] May, [facility] [address] [facility] [id number] [address] [place] [address] May, [facility] [place] [address] [id number] [place] [id number] May, [facility] [place] [address] [id number] [place] [id number] May, [facility] [address] [facility] [id number] [address] [place] [address] May, [facility] [address] [facility] [id number] [address] [place] [address] May, [facility] [place] [address] [id number] [place] [id number] May, [facility] [address] [id number] [address] [place] [address], [place] [address] 14 May, 2012 [facility] [place] [address] [id number] [place] [id number] May, [facility] [address] [id number] [address] [place] [address] May, [facility] [place] [address] [id number] [place] [id number] May, [facility] [address] [id number] [address] [place] [address] May, [facility] [place] [address] [id number] [place] [id number] May, [facility] [address] [id number] [address] [place] [address] May, [facility] [address] [id number] [address] [place] [address] Apr, [facility] [address] [id number] [address] [place] [address] Apr, [facility] [address] [facility] [id number] [address] [place] [address] Apr, [facility] [address] [facility] [id number] [address] [place] [address] Apr, [facility] [place] [address] [id number] [place] [id number] Apr, [facility] [address] [id number] [address] [place] [address] Apr, [facility] [place] [address] [id number] [place] [id number] Apr, [facility] [place] [address] [id number] [place] [id number] Mar, [facility] [place] [address] [id number] [place] [id number] Mar, [facility] [place] [address] [id number] [place] [id number] Feb, [facility] [place] [address] [id number] [place] [id number] Jan, [facility] [place] [address] [id number] [place] [id number] Dec, [facility] [place] [address] [id number] [place] [id number] Dec, [facility] [place] [address] [id number] [place] [id number] November, [facility] [place] [address] [id number] [place] [id number] November, [facility] [place] [address] [id number] [place] [id number] November, [facility] [address] [facility] [id number] [address] [place] [address] November, [facility] [place] [address] [id number] [place] [id number] November, [facility] [place] [address] [id number] [place] [id number] November, [facility] [place] [address] [id number] [place] [id number] November, [facility] [place] [address] [id number] [place] [id number] Oct, [facility] [place] [address] [id number] [place] [id number] Oct, [facility] [place] [address] [id number] [place] [id number] Oct, [facility] [place] [address] [id number] [place] [id number] Oct, [facility] [place] [address] [id number] [place] [id number] Oct, [facility] [address] [facility] [id number] [address] [place] [address] Oct, [facility] [place] [address] [id number] [place] [id number] Oct, [facility] [place] [address] [id number] [place] [id number] Oct, [facility] [place] [address] [id number] [place] [id number] Sep, [facility] [place] [address] [id number] [place] [id number] Aug, [facility] [place] [address] [id number] [place] [id number] Aug, [facility] [place] [address] [id number] [place] [id number] Jul, [facility] [place] [address] [id number] [place] [id number] Jul, [facility] [address] [facility] [id number] [address] [place] [address] Jul, [facility] [place] [address] [id number] [place] [id number] Jul, [facility] [address] [facility] [id number] [address] [place] [address] Jun, [facility] [address] [facility] [id number] [address] [place] [address] Jun, [facility] [address] [facility] [id number] [address] [place] [address] May, [facility] [address] [facility] [id number] [address] [place] [address] Apr, [facility] [address] [facility] [id number] [address] [place] [address] Apr, [facility] [address] [facility] [id number] [address] [place] [address] Jan, [facility] [address] [facility] [id number] [address] [place] [address] Dec, [facility] [address] [facility] [id number] [address] [place] [address] Aug, [facility] [address] [id number] [address] [place] [address], [place] [address] 23 Jun, 2010 [facility] [address] [id number] [address] [place] [address], [place] [address] Jun, [facility] [address] [id number] [address] [place] [address], [place] [address] Jun, [facility] [address] [id number] [address] [place] [address], [place] [address] Jun, [facility] [address] [id number] [address] [place] [address], [place] [address] Jun, [facility] [address] [id number] [address] [place] [address], [place] [address] 15 May, 2010 [facility] [address] [id number] [address] [place] [address], [place] [address] 05 May, 2010 [facility] [address] [id number] [address] [place] [address], [place] [address] May, [facility] [address] [id number] [address] [place] [address], [place] [address] 18 Apr, 2010 [facility] [address] [id number] [address] [place] [address], [place] [address] Apr, [facility] [address] [id number] [address] [place] [address], [place] [address] Apr, [facility] [address] [id number] [address] [place] [address], [place] [address] 11 Apr, 2010 [facility] [address] [id number] [address] [place] [address], [place] [address] 10 Mar, 2010 [facility] [address] [id number] [address] [place] [address], [place] [address] 17 Jun, 2009 [facility] [address] [id number] [address] [place] [address], [place] [address] 14 Jun, 2009 [facility] [address] [id number] [address] [place] [address], [place] [address] Jun, IMMUNIZATIONS No Known Immunizations SOCIAL HISTORY Never Assessed REASON FOR VISIT PLAN OF CARE VITAL SIGNS MEDICATIONS Unknown Medications RESULTS No Results PROCEDURES Procedure Date Ordered Result Body Site DRUG SCREEN, QUALITATE/MULTI Jun 01, 2014 INSTRUCTIONS MEDICATIONS ADMINISTERED No Known Medications [...]
--- OUTSIDE RECORDS SUMMARY | 2020-01-13 17:53 | XMS REPORT ---
Author Author Elba Ina [facility] Organization [facility] Address [address], [place] [id number] Care Team Providers Care Leveler Helper Name Role Phone Elba [facility] Unavailable PROBLEMS Type Condition ICD9-CM Code YWO59-JS Code Onset Dates Condition S tatus SNOMED Code Problem ETOH abuse F10.10 Active 22645552 Problem Mild episode of recurrent major depressive disorder F33.0 Active [id number] ALLERGIES No Information ENCOUNTERS Encounter Location Date Diagnosis [facility] [address] [id number] [address] [place] [id number] November, [facility] [address] [address] November, Injury of left knee, subsequ ent encounter S89.92XD and Injury of left ankle, subsequent encounter S99.912D [facility] [address] [id number] May, [facility] [address] [id number] [address] [place] [id number] May, Mild episode of recurrent ma shawna depressive disorder F33.0 ; Elevated blood pressure reading R03.0 ; Screening for hyperlipidemia Z13.220 ; Screening for thyroid disorder Z13.29 ; Screening for diabetes mellitus Z13.1 and History of seizures Z87.898 [facility] [address] [id number] [id number] Jul, [facility] [address] [id number] [address] [place] [id number] Oct, [facility] [address] [id number] [address] [place] [id number] Oct, [facility] [address] [id number] [facility] [id number] Sep, [facility] [address] [id number] [address] [place] [address], [place] [id number] Sep, [facility] [address] [id number] [address] [place] [address], [place] [id number] Aug, [facility] [place] [address] [id number] [place] [id number] Aug, [facility] [address] [id number] [address] [place] [address], [place] [id number] Aug, [facility] [address] [id number] [address] [place] [address], [place] [address] Aug, [facility] [place] [address] [id number] [place] [id number] Aug, [facility] [address] [id number] [address] [place] [address], [place] [id number] Aug, [facility] [address] [id number] [address] [place] [address], [place] [id number] Aug, [facility] [place] [address] [id number] [place] [id number] Jul, [facility] [address] [id number] [address] [place] [address], [place] [id number] Jul, [facility] [address] [id number] [address] [place] [address], [place] [address] Jul, [facility] [address] [id number] [address] [place] [address], [place] [id number] Jul, [facility] [place] [address] [id number] [place] [id number] Jul, [facility] [address] [id number] [address] [place] [address], [place] [id number] Jul, [facility] [address] [id number] [address] [place] [address], [place] [id number] Jun, [facility] [address] [id number] [address] [place] [address], [place] [address] Jun, [facility] [place] [address] [id number] [place] [id number] Jun, [facility] [address] [id number] [facility] [place] [address] Jun, [facility] [address] [id number] [place] [id number] Jun, [facility] [address] [id number] [address] [place] [address], [place] [id number] Jun, [facility] [address] [id number] [address] [place] [address], [place] [id number] Jun, [facility] [address] [id number] [address] [place] [address], [place] [address] May, [facility] [address] [id number] [address] [place] [address], [place] [address] May, [facility] [address] [id number] [place] [id number] May, [facility] [address] [id number] [address] [place] [address], [place] [address] May, [facility] [address] [id number] [address] [place] [address], [place] [address] Apr, [facility] [address] [id number] [address] [place] [address], [place] [address] Apr, [facility] [address] [id number] [place] [id number] Apr, [facility] [address] [id number] [address] [place] [address], [place] [id number] Apr, [facility] [address] [id number] [address] [place] [address], [place] [address] Mar, [facility] [address] [id number] [address] [place] [address], [place] [address] Mar, [facility] [address] [id number] [facility] [address] Mar, [facility] [address] [id number] [facility] [place] [address] Mar, [facility] [place] [address] [id number] [place] [id number] Mar, [facility] [address] [id number] [facility] [place] [address] Mar, [facility] [address] [id number] [place] [id number] Mar, [facility] [address] [id number] [address] [place] [address], [place] [id number] Mar, [facility] [address] [id number] [address] [place] [address], [place] [address] Feb, [facility] [address] [id number] [address] [place] [address], [place] [address] Feb, [facility] [address] [id number] [address] [place] [address], [place] [address] Feb, [facility] [address] [id number] [address] [place] [address], [place] [address] Feb, [facility] [address] [id number] [address] [place] [address], [place] [address] Feb, [facility] [address] [id number] [address] [place] [address], [place] [address] Feb, [facility] [address] [id number] [place] [id number] Feb, [facility] [address] [id number] [address] [place] [address], [place] [address] Feb, [facility] [address] [id number] [address] [place] [address], [place] [address] Jan, [facility] [address] [id number] [facility] [place] [address] Jan, [facility] [place] [address] [id number] [place] [id number] Jan, [facility] [address] [id number] [address] [place] [address], [place] [address] Jan, [facility] [address] [id number] [address] [place] [address], [place] [address] Dec, [facility] [place] [address] [id number] [place] [id number] Dec, [facility] [place] [address] [id number] [place] [id number] November, [facility] [address] [id number] [address] [place] [address], [place] [address] November, [facility] [place] [address] [id number] [place] [id number] November, [facility] [address] [id number] [address] [place] [address], [place] [id number] November, [facility] [address] [id number] [address] [place] [address], [place] [address] Oct, [facility] [place] [address] [id number] [place] [id number] Oct, [facility] [place] [address] [id number] [place] [id number] Oct, [facility] [address] [id number] [address] [place] [address], [place] [address] Oct, [facility] [place] [address] [id number] [place] [id number] Oct, [facility] [address] [id number] [address] [place] [address], [place] [address] Oct, [facility] [place] [address] [id number] [place] [id number] Oct, [facility] [address] [id number] [address] [place] [address], [place] [address] Oct, [facility] [address] [id number] [address] [place] [address], [place] [id number] Oct, [facility] [place] [address] [id number] [place] [id number] Oct, [facility] [address] [id number] [address] [place] [address], [place] [address] Oct, [facility] [place] [address] [id number] [place] [id number] Oct, [facility] [place] [address] [id number] [place] [id number] Sep, [facility] [address] [id number] [address] [place] [address], [place] [address] Sep, [facility] [address] [id number] [address] [place] [address], [place] [address] Sep, [facility] [place] [address] [id number] [place] [id number] Sep, [facility] [place] [address] [id number] [place] [id number] Sep, [facility] [address] [facility] [id number] [address] [place] [id number] Sep, [facility] [place] [address] [id number] [place] [id number] Aug, [facility] [address] [facility] [id number] [address] [place] [id number] Aug, [facility] [place] [address] [id number] [place] [id number] Aug, [facility] [address] [id number] [address] [place] [id number] Aug, [facility] [address] [facility] [id number] [address] [place] [id number] Aug, [facility] [address] [facility] [id number] [address] [place] [id number] Aug, [facility] [place] [address] [id number] [place] [id number] Jul, [facility] [address] [id number] [address] [place] [id number] Jul, [facility] [place] [address] [id number] [place] [id number] Jun, [facility] [address] [facility] [id number] [address] [place] [id number] Jun, [facility] [place] [address] [id number] [place] [id number] May, [facility] [address] [facility] [id number] [address] [place] [id number] May, [facility] [place] [address] [id number] [place] [id number] Apr, [facility] [address] [id number] [address] [place] [address] Apr, [facility] [place] [address] [id number] [place] [id number] Mar, [facility] [address] [facility] [id number] [address] [place] [id number] Feb, [facility] [place] [address] [id number] [place] [id number] Feb, [facility] [place] [address] [id number] [place] [id number] Feb, [facility] [place] [address] [id number] [place] [id number] Feb, [facility] [address] [id number] [address] [place] [id number] Jan, [facility] [place] [address] [id number] [place] [id number] Jan, [facility] [place] [address] [id number] [place] [id number] Jan, [facility] [address] [facility] [id number] [address] [place] [id number] Jan, [facility] [place] [address] [id number] [place] [id number] November, [facility] [place] [address] [id number] [place] [id number] November, [facility] [address] [id number] [address] [place] [id number] November, [facility] [place] [address] [id number] [place] [id number] November, [facility] [place] [address] [id number] [place] [id number] Oct, [facility] [place] [address] [id number] [place] [id number] Oct, [facility] [place] [address] [id number] [place] [id number] Sep, [facility] [place] [address] [id number] [place] [id number] Sep, [facility] [place] [address] [id number] [place] [id number] Aug, [facility] [place] [address] [id number] [place] [id number] Jul, [facility] [place] [address] [id number] [place] [id number] Jun, [facility] [address] [facility] [id number] [address] [place] [id number] Jun, [facility] [address] [facility] [id number] [address] [place] [id number] May, [facility] [address] [facility] [id number] [address] [place] [id number] May, [facility] [place] [address] [id number] [place] [id number] May, [facility] [place] [address] [id number] [place] [id number] May, [facility] [address] [facility] [id number] [address] [place] [id number] May, [facility] [address] [facility] [id number] [address] [place] [id number] May, [facility] [place] [address] [id number] [place] [id number] May, [facility] [address] [id number] [address] [place] [address] May, [facility] [place] [address] [id number] [place] [id number] May, [facility] [address] [id number] [address] [place] [address], [place] [id number] May, [facility] [place] [address] [id number] [place] [id number] May, [facility] [address] [id number] [address] [place] [id number] May, [facility] [place] [address] [id number] [place] [id number] May, [facility] [address] [facility] [id number] [address] [place] [id number] May, [facility] [address] [facility] [id number] [address] [place] [id number] Apr, [facility] [address] [facility] [id number] [address] [place] [id number] Apr, [facility] [address] [facility] [id number] [address] [place] [id number] Apr, [facility] [address] [facility] [id number] [address] [place] [address] Apr, [facility] [place] [address] [id number] [place] [id number] Apr, [facility] [address] [id number] [address] [place] [address] Apr, [facility] [place] [address] [id number] [place] [id number] Apr, [facility] [place] [address] [id number] [place] [id number] Mar, [facility] [place] [address] [id number] [place] [id number] Mar, [facility] [place] [address] [id number] [place] [id number] Feb, [facility] [place] [address] [id number] [place] [id number] Jan, [facility] [place] [address] [id number] [place] [id number] Dec, [facility] [place] [address] [id number] [place] [id number] Dec, [facility] [place] [address] [id number] [place] [id number] November, [facility] [place] [address] [id number] [place] [id number] November, [facility] [place] [address] [id number] [place] [id number] November, [facility] [address] [facility] [id number] [address] [place] [address] November, [facility] [place] [address] [id number] [place] [id number] November, [facility] [place] [address] [id number] [place] [id number] November, [facility] [place] [address] [id number] [place] [id number] November, [facility] [place] [address] [id number] [place] [id number] Oct, [facility] [place] [address] [id number] [place] [id number] Oct, [facility] [place] [address] [id number] [place] [id number] Oct, [facility] [place] [address] [id number] [place] [id number] Oct, [facility] [place] [address] [id number] [place] [id number] Oct, [facility] [address] [facility] [id number] [place] [address] Oct, [facility] [place] [address] [id number] [place] [id number] Oct, [facility] [place] [address] [id number] [place] [id number] Oct, [facility] [place] [address] [id number] [place] [id number] Sep, [facility] [place] [address] [id number] [place] [id number] Aug, [facility] [place] [address] [id number] [place] [id number] Aug, [facility] [place] [address] [id number] [place] [id number] Jul, [facility] [place] [address] [id number] [place] [id number] Jul, [facility] [address] [facility] [id number] [address] [place] [id number] Jul, [facility] [place] [address] [id number] [place] [id number] Jul, [facility] [address] [facility] [id number] [address] [place] [id number] Jun, [facility] [address] [facility] [id number] [address] [place] [id number] Jun, [facility] [address] [facility] [id number] [address] [place] [id number] May, [facility] [address] [facility] [id number] [address] [place] [id number] Apr, [facility] [address] [facility] [id number] [address] [place] [id number] Apr, [facility] [address] [facility] [id number] [address] [place] [id number] Jan, [facility] [address] [facility] [id number] [address] [place] [id number] Dec, [facility] [address] [facility] [id number] [address] [place] [id number] Aug, [facility] [address] [id number] [address] [place] [address], [place] [id number] 23 Jun, 2010 [facility] [address] [id number] [address] [place] [address], [place] [id number] Jun, [facility] [address] [id number] [address] [place] [address], [place] [id number] Jun, [facility] [address] [id number] [address] [place] [address], [place] [id number] Jun, [facility] [address] [id number] [address] [place] [address], [place] [id number] Jun, [facility] [address] [id number] [address] [place] [address], [place] [id number] 15 May, 2010 [facility] [address] [id number] [address] [place] [address], [place] [id number] May, [facility] [address] [id number] [address] [place] [id number] May, [facility] [address] [id number] [address] [place] [address], [place] [id number] Apr, [facility] [address] [id number] [address] [place] [phone] Apr, [facility] [address] [id number] [address] [place] [id number] Apr, [facility] [address] [id number] [address] [place] [id number] Apr, [facility] [address] [id number] [address] [place] [id number] 10 Mar, 2010 [facility] [address] [id number] [address] [place] [id number] 17 Jun, 2009 [facility] [address] [id number] [address] [place] [id number] 14 Jun, 2009 [facility] [address] [id number] [address] [place] [id number] Jun, IMMUNIZATIONS No Known Immunizations SOCIAL HISTORY Never Assessed REASON FOR VISIT PLAN OF CARE VITAL SIGNS MEDICATIONS Unknown Medications RESULTS No Results PROCEDURES Procedure Date Ordered Result Body Site CARE COORDINATION Apr 12, 2014 INSTRUCTIONS MEDICATIONS ADMINISTERED No Known Medications [...]
--- OUTSIDE RECORDS SUMMARY | 2020-01-13 17:53 | XMS REPORT ---
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 Name Role Phone SANDY DEJESUS Unavailable PROBLEMS Type Condition ICD9-CM Code CVK12-DJ Code Onset Dates Condition S tatus SNOMED Code Problem ETOH abuse F10.10 Active 29404857 Problem Mild episode of recurrent major depressive disorder F33.0 Active [id number] ALLERGIES No Information ENCOUNTERS Encounter Location Date Diagnosis [facility] [address] [id number] [address] [place] [id number] November, [facility] [address] [id number] [address] [place] [id number] November, Injury of left knee, subsequ ent encounter S89.92XD and Injury of left ankle, subsequent encounter S99.912D [facility] [address] [id number] [address] [place] [address] May, [facility] [address] [id number] [address] [place] [address] May, Mild episode of recurrent ma shawna depressive disorder F33.0 ; Elevated blood pressure reading R03.0 ; Screening for hyperlipidemia Z13.220 ; Screening for thyroid disorder Z13.29 ; Screening for diabetes mellitus Z13.1 and History of seizures Z87.898 [facility] [address] [facility] [id number] [place] [id number] Jul, [facility] [address] [facility] [id number] [address] [place] [id number] Oct, [facility] [address] [facility] [id number] [address] [place] [address] Oct, [facility] [address] [facility] [id number] [place] [id number] Sep, [facility] [address] [id number] [address] [place] [address], [place] [address] Sep, [facility] [address] [id number] [address] [place] [address], [place] [address] Aug, [facility] [address] [id number] [place] [id number] Aug, [facility] [address] [id number] [address] [place] [address], [place] [address] Aug, [facility] [address] [id number] [address] [place] [address], [place] [address] Aug, [facility] [place] [address] [id number] [place] [id number] Aug, [facility] [address] [id number] [address] [place] [address] Aug, [facility] [address] [id number] [address] [place] [address] Aug, [facility] [place] [address] [id number] [place] [id number] Jul, [facility] [address] [id number] [address] [place] [address] Jul, [facility] [address] [id number] [address] [place] [id number] Jul, [facility] [address] [id number] [address] [place] [address] Jul, [facility] [place] [address] [id number] [place] [id number] Jul, [facility] [address] [id number] [address] [place] [address] Jul, [facility] [address] [id number] [address] [place] [address] Jun, [facility] [address] [id number] [address] [place] [address] Jun, [facility] [place] [address] [id number] [place] [id number] Jun, [facility] [address] [id number] [address] [place] [address], [place] [address] Jun, [facility] [address] [id number] [place] [id number] Jun, [facility] [address] [id number] [address] [place] [address], [place] [address] Jun, [facility] [address] [id number] [address] [place] [address], [place] [address] Jun, [facility] [address] [id number] [address] [place] [address], [place] [address] May, [facility] [address] [id number] [address] [place] [address], [place] [address] May, [facility] [address] [id number] [place] [id number] May, [facility] [address] [id number] [address] [place] [address], [place] [address] May, [facility] [address] [id number] [address] [place] [address], [place] [address] Apr, [facility] [address] [id number] [address] [place] [address], [place] [address] Apr, [facility] [address] [id number] [place] [id number] Apr, [facility] [address] [id number] [address] [place] [address], [place] [address] Apr, [facility] [address] [id number] [address] [place] [address], [place] [address] Mar, [facility] [address] [id number] [address] [place] [address], [place] [address] Mar, [facility] [address] [id number] [address] [place] [address], [place] [address] Mar, [facility] [address] [id number] [facility] [place] [address] Mar, [facility] [place] [address] [id number] [place] [id number] Mar, [facility] [address] [id number] [facility] [address] Mar, [facility] [place] [address] [id number] [place] [id number] Mar, [facility] [address] [id number] [facility] [address] Mar, [facility] [address] [id number] [address] [place] [address], [place] [address] Feb, [facility] [address] [id number] [address] [place] [address], [place] [address] Feb, [facility] [address] [id number] [address] [place] [address], [place] [address] Feb, [facility] [address] [id number] [address] [place] [address], [place] [address] Feb, [facility] [address] [id number] [address] [place] [address], [place] [address] Feb, [facility] [address] [id number] [address] [place] [address], [place] [address] Feb, [facility] [place] [address] [id number] [place] [id number] Feb, [facility] [address] [id number] [address] [place] [address], [place] [address] Feb, [facility] [address] [id number] [address] [place] [address], [place] [address] Jan, [facility] [address] [id number] [facility] [place] [address] Jan, [facility] [place] [address] [id number] [place] [id number] Jan, [facility] [address] [id number] [address] [place] [address], [place] [address] Jan, [facility] [address] [id number] [address] [place] [address], [place] [address] Dec, [facility] [place] [address] [id number] [place] [id number] Dec, [facility] [place] [address] [id number] [place] [id number] November, [facility] [address] [id number] [address] [place] [address], [place] [address] November, [facility] [place] [address] [id number] [place] [id number] November, [facility] [address] [id number] [address] [place] [address], [place] [address] November, [facility] [address] [id number] [address] [place] [address], [place] [address] Oct, [facility] [place] [address] [id number] [place] [id number] Oct, [facility] [place] [address] [id number] [place] [id number] Oct, [facility] [address] [id number] [address] [place] [address], [place] [address] Oct, [facility] [place] [address] [id number] [place] [id number] Oct, [facility] [address] [id number] [address] [place] [address], [place] [address] Oct, [facility] [place] [address] [id number] [place] [id number] Oct, [facility] [address] [id number] [address] [place] [address], [place] [address] Oct, [facility] [address] [id number] [address] [place] [address], [place] [address] Oct, [facility] [place] [address] [id number] [place] [id number] Oct, [facility] [address] [id number] [address] [place] [address], [place] [address] Oct, [facility] [place] [address] [id number] [place] [id number] Oct, [facility] [place] [address] [id number] [place] [id number] Sep, [facility] [address] [id number] [address] [place] [address], [place] [address] Sep, [facility] [address] [id number] [address] [place] [address], [place] [address] Sep, [facility] [place] [address] [id number] [place] [id number] Sep, [facility] [place] [address] [id number] [place] [id number] Sep, [facility] [address] [id number] [address] [place] [address] Sep, [facility] [place] [address] [id number] [place] [id number] Aug, [facility] [address] [facility] [id number] [address] [place] [address] Aug, [facility] [place] [address] [id number] [place] [id number] Aug, [facility] [address] [id number] [address] [place] [address] Aug, [facility] [address] [facility] [id number] [address] [place] [address], [place] [address] Aug, [facility] [address] [facility] [id number] [address] [place] [address] Aug, [facility] [place] [address] [id number] [place] [id number] Jul, [facility] [address] [facility] [id number] [address] [place] [address] Jul, [facility] [place] [address] [id number] [place] [id number] Jun, [facility] [address] [id number] [address] [place] [address] Jun, [facility] [place] [address] [id number] [place] [id number] May, [facility] [address] [id number] [address] [place] [address] May, [facility] [place] [address] [id number] [place] [id number] Apr, [facility] [address] [id number] [address] [place] [address], [place] [address] Apr, [facility] [place] [address] [id number] [place] [id number] Mar, [facility] [address] [id number] [address] [place] [address] Feb, [facility] [place] [address] [id number] [place] [id number] Feb, [facility] [place] [address] [id number] [place] [id number] Feb, [facility] [place] [address] [id number] [place] [id number] Feb, [facility] [address] [id number] [address] [place] [address] Jan, [facility] [place] [address] [id number] [place] [id number] Jan, [facility] [place] [address] [id number] [place] [id number] Jan, [facility] [address] [id number] [address] [place] [address] Jan, [facility] [place] [address] [id number] [place] [id number] November, [facility] [place] [address] [id number] [place] [id number] November, [facility] [address] [id number] [address] [place] [address] November, [facility] [place] [address] [id number] [place] [id number] November, [facility] [place] [address] [id number] [place] [id number] Oct, [facility] [place] [address] [id number] [place] [id number] Oct, [facility] [place] [address] [id number] [place] [id number] Sep, [facility] [place] [address] [id number] [place] [id number] Sep, [facility] [place] [address] [id number] [place] [id number] Aug, [facility] [place] [address] [id number] [place] [id number] Jul, [facility] [place] [address] [id number] [place] [id number] Jun, [facility] [address] [facility] [id number] [address] [place] [id number] Jun, [facility] [address] [facility] [id number] [address] [place] [address] May, [facility] [address] [facility] [id number] [address] [place] [address] May, [facility] [place] [address] [id number] [place] [id number] May, [facility] [place] [address] [id number] [place] [id number] May, [facility] [address] [facility] [id number] [address] [place] [address] May, [facility] [address] [facility] [id number] [address] [place] [address] May, [facility] [place] [address] [id number] [place] [id number] May, [facility] [address] [id number] [address] [place] [address], [place] [address] 14 May, 2012 [facility] [place] [address] [id number] [place] [id number] May, [facility] [address] [id number] [address] [place] [address] May, [facility] [place] [address] [id number] [place] [id number] May, [facility] [address] [id number] [address] [place] [address] May, [facility] [place] [address] [id number] [place] [id number] May, [facility] [address] [id number] [address] [place] [address] May, [facility] [address] [id number] [address] [place] [address] Apr, [facility] [address] [id number] [address] [place] [address] Apr, [facility] [address] [facility] [id number] [address] [place] [address] Apr, [facility] [address] [facility] [id number] [address] [place] [address] Apr, [facility] [place] [address] [id number] [place] [id number] Apr, [facility] [address] [id number] [address] [place] [address] Apr, [facility] [place] [address] [id number] [place] [id number] Apr, [facility] [place] [address] [id number] [place] [id number] Mar, [facility] [place] [address] [id number] [place] [id number] Mar, [facility] [place] [address] [id number] [place] [id number] Feb, [facility] [place] [address] [id number] [place] [id number] Jan, [facility] [place] [address] [id number] [place] [id number] Dec, [facility] [place] [address] [id number] [place] [id number] Dec, [facility] [place] [address] [id number] [place] [id number] November, [facility] [place] [address] [id number] [place] [id number] November, [facility] [place] [address] [id number] [place] [id number] November, [facility] [address] [facility] [id number] [address] [place] [address] November, [facility] [place] [address] [id number] [place] [id number] November, [facility] [place] [address] [id number] [place] [id number] November, [facility] [place] [address] [id number] [place] [id number] November, [facility] [place] [address] [id number] [place] [id number] Oct, [facility] [place] [address] [id number] [place] [id number] Oct, [facility] [place] [address] [id number] [place] [id number] Oct, [facility] [place] [address] [id number] [place] [id number] Oct, [facility] [place] [address] [id number] [place] [id number] Oct, [facility] [address] [facility] [id number] [address] [place] [address] Oct, [facility] [place] [address] [id number] [place] [id number] Oct, [facility] [place] [address] [id number] [place] [id number] Oct, [facility] [place] [address] [id number] [place] [id number] Sep, [facility] [place] [address] [id number] [place] [id number] Aug, [facility] [place] [address] [id number] [place] [id number] Aug, [facility] [place] [address] [id number] [place] [id number] Jul, [facility] [place] [address] [id number] [place] [id number] Jul, [facility] [address] [facility] [id number] [address] [place] [address] Jul, [facility] [place] [address] [id number] [place] [id number] Jul, [facility] [address] [facility] [id number] [address] [place] [address] Jun, [facility] [address] [facility] [id number] [address] [place] [address] Jun, [facility] [address] [facility] [id number] [address] [place] [address] May, [facility] [address] [facility] [id number] [address] [place] [id number] Apr, [facility] [address] [facility] [id number] [address] [place] [address] Apr, [facility] [address] [facility] [id number] [address] [place] [address] Jan, [facility] [address] [facility] [id number] [address] [place] [address] Dec, [facility] [address] [facility] [id number] [address] [place] [id number] Aug, [facility] [address] [id number] [address] [place] [address], [place] [id number] 23 Jun, 2010 [facility] [address] [id number] [address] [place] [address], [place] [id number] Jun, [facility] [address] [id number] [address] [place] [address], [place] [address] Jun, [facility] [address] [id number] [address] [place] [address], [place] [id number] Jun, [facility] [address] [id number] [address] [place] [address], [place] [address] Jun, [facility] [address] [id number] [address] [place] [address], [place] [id number] 15 May, 2010 [facility] [address] [id number] [address] [place] [address], [place] [id number] 05 May, 2010 [facility] [address] [id number] [address] [place] [address], [place] [address] May, [facility] [address] [id number] [address] [place] [address], [place] [id number] 18 Apr, 2010 [facility] [address] [id number] [address] [place] [address], [place] [id number] Apr, [facility] [address] [id number] [address] [place] [address], [place] [address] Apr, [facility] [address] [id number] [address] [place] [address], [place] [id number] 11 Apr, 2010 [facility] [address] [id number] [address] [place] [address], [place] [id number] 10 Mar, 2010 [facility] [address] [id number] [address] [place] [address], [place] [id number] 17 Jun, 2009 [facility] [address] [id number] [address] [place] [address], [place] [id number] 14 Jun, 2009 [facility] [address] [id number] [address] [place] [address], [place] [address] Jun, IMMUNIZATIONS No Known Immunizations SOCIAL HISTORY Never Assessed REASON FOR VISIT PLAN OF CARE VITAL SIGNS MEDICATIONS Unknown Medications RESULTS No Results PROCEDURES Procedure Date Ordered Result Body Site DRUG SCREEN, QUALITATE/MULTI May 02, 2014 INSTRUCTIONS MEDICATIONS ADMINISTERED No Known Medications [...]
--- OUTSIDE RECORDS SUMMARY | 2020-01-13 17:53 | XMS REPORT ---
Author Author [facility] Organization [facility] Address [address], [place] [id number] Care Team Providers Care Police Sergeant Name Role Phone [facility] Unavailable PROBLEMS Type Condition ICD9-CM Code VRD04-OW Code Onset Dates Condition S tatus SNOMED Code Problem ETOH abuse F10.10 Active 75919290 Problem Mild episode of recurrent major depressive disorder F33.0 Active [id number] ALLERGIES No Information ENCOUNTERS Encounter Location Date Diagnosis [facility] [address] [id number] [address] [place] [address] November, [facility] [address] [address] November, Injury of left knee, subsequ ent encounter S89.92XD and Injury of left ankle, subsequent encounter S99.912D [facility] [address] [address] May, [facility] [address] [id number] [address] [place] [address] May, Mild episode of recurrent ma shawna depressive disorder F33.0 ; Elevated blood pressure reading R03.0 ; Screening for hyperlipidemia Z13.220 ; Screening for thyroid disorder Z13.29 ; Screening for diabetes mellitus Z13.1 and History of seizures Z87.898 [facility] [address] [id number] [place] [id number] Jul, [facility] [address] [id number] [address] [place] [address] Oct, [facility] [address] [id number] [address] [place] [address] Oct, [facility] [address] [id number] [id number] Sep, [facility] [address] [id number] [address] [place] [address], [place] [address] Sep, [facility] [address] [id number] [address] [place] [address], [place] [address] Aug, [facility] [place] [address] [id number] [place] [id number] Aug, [facility] [address] [id number] [address] [place] [address], [place] [address] Aug, [facility] [address] [id number] [address] [place] [address], [place] [address] Aug, [facility] [place] [address] [id number] [place] [id number] Aug, [facility] [address] [id number] [address] [place] [address], [place] [address] Aug, [facility] [address] [id number] [address] [place] [address], [place] [address] Aug, [facility] [place] [address] [id number] [place] [id number] Jul, [facility] [address] [id number] [address] [place] [address], [place] [address] Jul, [facility] [address] [id number] [address] [place] [address], [place] [address] Jul, [facility] [address] [id number] [address] [place] [address], [place] [address] Jul, [facility] [place] [address] [id number] [place] [id number] Jul, [facility] [address] [id number] [address] [place] [address], [place] [address] Jul, [facility] [address] [id number] [address] [place] [address], [place] [address] Jun, [facility] [address] [id number] [address] [place] [address], [place] [address] Jun, [facility] [place] [address] [id number] [place] [id number] Jun, [facility] [address] [id number] [facility] [place] [address] Jun, [facility] [place] [address] [id number] [place] [id number] Jun, [facility] [address] [id number] [address] [place] [address], [place] [address] Jun, [facility] [address] [id number] [address] [place] [address], [place] [address] Jun, [facility] [address] [id number] [address] [place] [address], [place] [address] May, [facility] [address] [id number] [address] [place] [address], [place] [address] May, [facility] [place] [address] [id number] [place] [id number] May, [facility] [address] [id number] [address] [place] [address], [place] [address] May, [facility] [address] [id number] [address] [place] [address], [place] [address] Apr, [facility] [address] [id number] [address] [place] [address], [place] [address] Apr, [facility] [place] [address] [id number] [place] [id number] Apr, [facility] [address] [id number] [address] [place] [address], [place] [address] Apr, [facility] [address] [id number] [address] [place] [address], [place] [address] Mar, [facility] [address] [id number] [address] [place] [address], [place] [address] Mar, [facility] [address] [id number] [facility] [place]note 2[facility] [place] [address] Mar, [facility] [address] [id number] [facility] [place] [address] Mar, [facility] [place] [address] [id number] [place] [id number] Mar, [facility] [address] [id number] [facility] [place] [address] Mar, [facility] [place] [address] [id number] [place] [id number] Mar, [facility] [address] [id number] [address] [place] [address], [place] [address] Mar, [facility] [address] [id number] [address] [place] [address], [place] [address] Feb, [facility] [address] [id number] [address] [place] [address], [place] [address] Feb, [facility] [address] [id number] [address] [place] [address], [place] [address] Feb, [facility] [address] [id number] [address] [place] [address], [place] [address] Feb, [facility] [address] [id number] [address] [place] [address], [place] [address] Feb, [facility] [address] [id number] [address] [place] [address], [place] [address] Feb, [facility] [place] [address] [id number] [place] [id number] Feb, [facility] [address] [id number] [address] [place] [address], [place] [address] Feb, [facility] [address] [id number] [address] [place] [address], [place] [address] Jan, [facility] [address] [id number] [facility] [place] [address] Jan, [facility] [place] [address] [id number] [place] [id number] Jan, [facility] [address] [id number] [address] [place] [address], [place] [address] Jan, [facility] [address] [id number] [address] [place] [address], [place] [address] Dec, [facility] [place] [address] [id number] [place] [id number] Dec, [facility] [place] [address] [id number] [place] [id number] November, [facility] [address] [id number] [address] [place] [address], [place] [address] November, [facility] [place] [address] [id number] [place] [id number] November, [facility] [address] [id number] [address] [place] [address], [place] [address] November, [facility] [address] [id number] [address] [place] [address], [place] [address] Oct, [facility] [place] [address] [id number] [place] [id number] Oct, [facility] [place] [address] [id number] [place] [id number] Oct, [facility] [address] [id number] [address] [place] [address], [place] [address] Oct, [facility] [place] [address] [id number] [place] [id number] Oct, [facility] [address] [id number] [address] [place] [address], [place] [address] Oct, [facility] [place] [address] [id number] [place] [id number] Oct, [facility] [address] [id number] [address] [place] [address], [place] [address] Oct, [facility] [address] [id number] [address] [place] [address], [place] [address] Oct, [facility] [place] [address] [id number] [place] [id number] Oct, [facility] [address] [id number] [address] [place] [address], [place] [address] Oct, [facility] [place] [address] [id number] [place] [id number] Oct, [facility] [place] [address] [id number] [place] [id number] Sep, [facility] [address] [id number] [address] [place] [address], [place] [address] Sep, [facility] [address] [id number] [address] [place] [address], [place] [address] Sep, [facility] [place] [address] [id number] [place] [id number] Sep, [facility] [place] [address] [id number] [place] [id number] Sep, [facility] [address] [facility] [id number] [address] [place] [address] Sep, [facility] [place] [address] [id number] [place] [id number] Aug, [facility] [address] [facility] [id number] [address] [place] [address] Aug, [facility] [place] [address] [id number] [place] [id number] Aug, [facility] [address] [id number] [address] [place] [address] Aug, [facility] [address] [facility] [id number] [address] [place] [address] Aug, [facility] [address] [facility] [id number] [address] [place] [address] Aug, [facility] [place] [address] [id number] [place] [id number] Jul, [facility] [address] [id number] [address] [place] [address] Jul, [facility] [place] [address] [id number] [place] [id number] Jun, [facility] [address] [facility] [id number] [address] [place] [address] Jun, [facility] [place] [address] [id number] [place] [id number] May, [facility] [address] [facility] [id number] [address] [place] [address] May, [facility] [place] [address] [id number] [place] [id number] Apr, [facility] [address] [id number] [address] [place] [address] Apr, [facility] [place] [address] [id number] [place] [id number] Mar, [facility] [address] [facility] [id number] [address] [place] [address] Feb, [facility] [place] [address] [id number] [place] [id number] Feb, [facility] [place] [address] [id number] [place] [id number] Feb, [facility] [place] [address] [id number] [place] [id number] Feb, [facility] [address] [id number] [address] [place] [address] Jan, [facility] [place] [address] [id number] [place] [id number] Jan, [facility] [place] [address] [id number] [place] [id number] Jan, [facility] [address] [facility] [id number] [address] [place] [address] Jan, [facility] [place] [address] [id number] [place] [id number] November, [facility] [place] [address] [id number] [place] [id number] November, [facility] [address] [id number] [address] [place] [address] November, [facility] [place] [address] [id number] [place] [id number] November, [facility] [place] [address] [id number] [place] [id number] Oct, [facility] [place] [address] [id number] [place] [id number] Oct, [facility] [place] [address] [id number] [place] [id number] Sep, [facility] [place] [address] [id number] [place] [id number] Sep, [facility] [place] [address] [id number] [place] [id number] Aug, [facility] [place] [address] [id number] [place] [id number] Jul, [facility] [place] [address] [id number] [place] [id number] Jun, [facility] [address] [facility] [id number] [address] [place] [address] Jun, [facility] [address] [facility] [id number] [address] [place] [address] May, [facility] [address] [facility] [id number] [address] [place] [address] May, [facility] [place] [address] [id number] [place] [id number] May, [facility] [place] [address] [id number] [place] [id number] May, [facility] [address] [facility] [id number] [address] [place] [address] May, [facility] [address] [facility] [id number] [address] [place] [address] May, [facility] [place] [address] [id number] [place] [id number] May, [facility] [address] [id number] [address] [place] [address] May, [facility] [place] [address] [id number] [place] [id number] May, [facility] [address] [id number] [address] [place] [address], [place] [address] May, [facility] [place] [address] [id number] [place] [id number] May, [facility] [address] [id number] [address] [place] [address] May, [facility] [place] [address] [id number] [place] [id number] May, [facility] [address] [facility] [id number] [address] [place] [address] May, [facility] [address] [facility] [id number] [address] [place] [address] Apr, [facility] [address] [facility] [id number] [address] [place] [address] Apr, [facility] [address] [facility] [id number] [address] [place] [address] Apr, [facility] [address] [facility] [id number] [address] [place] [address] Apr, [facility] [place] [address] [id number] [place] [id number] Apr, [facility] [address] [id number] [address] [place] [address] Apr, [facility] [place] [address] [id number] [place] [id number] Apr, [facility] [place] [address] [id number] [place] [id number] Mar, [facility] [place] [address] [id number] [place] [id number] Mar, [facility] [place] [address] [id number] [place] [id number] Feb, [facility] [place] [address] [id number] [place] [id number] Jan, [facility] [place] [address] [id number] [place] [id number] Dec, [facility] [place] [address] [id number] [place] [id number] Dec, [facility] [place] [address] [id number] [place] [id number] November, [facility] [place] [address] [id number] [place] [id number] November, [facility] [place] [address] [id number] [place] [id number] November, [facility] [address] [facility] [id number] [address] [place] [address] November, [facility] [place] [address] [id number] [place] [id number] November, [facility] [place] [address] [id number] [place] [id number] November, [facility] [place] [address] [id number] [place] [id number] November, [facility] [place] [address] [id number] [place] [id number] Oct, [facility] [place] [address] [id number] [place] [id number] Oct, [facility] [place] [address] [id number] [place] [id number] Oct, [facility] [place] [address] [id number] [place] [id number] Oct, [facility] [place] [address] [id number] [place] [id number] Oct, [facility] [address] [facility] [id number] [place] [address] Oct, [facility] [place] [address] [id number] [place] [id number] Oct, [facility] [place] [address] [id number] [place] [id number] Oct, [facility] [place] [address] [id number] [place] [id number] Sep, [facility] [place] [address] [id number] [place] [id number] Aug, [facility] [place] [address] [id number] [place] [id number] Aug, [facility] [place] [address] [id number] [place] [id number] Jul, [facility] [place] [address] [id number] [place] [id number] Jul, [facility] [address] [facility] [id number] [address] [place] [address] Jul, [facility] [place] [address] [id number] [place] [id number] Jul, [facility] [address] [facility] [id number] [address] [place] [id number] Jun, [facility] [address] [facility] [id number] [address] [place] [id number] Jun, [facility] [address] [facility] [id number] [address] [place] [address] May, [facility] [address] [facility] [id number] [address] [place] [address] Apr, [facility] [address] [facility] [id number] [address] [place] [id number] Apr, [facility] [address] [facility] [id number] [address] [place] [id number] Jan, [facility] [address] [facility] [id number] [address] [place] [id number] Dec, [facility] [address] [facility] [id number] [address] [place] [address] Aug, [facility] [address] [id number] [address] [place] [address], [place] [address] 23 Jun, 2010 [facility] [address] [id number] [address] [place] [address], [place] [address] Jun, [facility] [address] [id number] [address] [place] [address], [place] [address] Jun, [facility] [address] [id number] [address] [place] [address], [place] [address] Jun, [facility] [address] [id number] [address] [place] [address], [place] [id number] Jun, [facility] [address] [id number] [address] [place] [address], [place] [id number] 15 May, 2010 [facility] [address] [id number] [address] [place] [address], [place] [address] May, [facility] [address] [id number] [address] [place] [id number] May, [facility] [address] [id number] [address] [place] [address], [place] [address] Apr, [facility] [address] [id number] [address] [place] [id number] Apr, [facility] [address] [id number] [address] [place] [id number] Apr, [facility] [address] [id number] [address] [place] [id number] Apr, [facility] [address] [id number] [address] [place] [id number] 10 Mar, 2010 [facility] [address] [id number] [address] [place] [id number] 17 Jun, 2009 [facility] [address] [id number] [address] [place] [id number] 14 Jun, 2009 [facility] [address] [id number] [address] [place] [id number] Jun, IMMUNIZATIONS No Known Immunizations SOCIAL HISTORY [...]
--- OUTSIDE RECORDS SUMMARY | 2020-01-13 17:53 | XMS REPORT ---
Author Author Elba Ina [facility] Organization [facility] Address [address], [place] [id number] Care Team Providers Care Curve Cleaner Name Role Phone Elba [facility] Unavailable PROBLEMS Type Condition ICD9-CM Code [id number] Code Onset Dates Condition S tatus SNOMED Code Problem ETOH abuse F10.10 Active 16239236 Problem Mild episode of recurrent major depressive disorder F33.0 Active 101324102 ALLERGIES No Information ENCOUNTERS Encounter Location Date Diagnosis [facility] [address] [id number] [address] [place] [id number] November, [facility] [address] [address] November, Injury of left knee, subsequ ent encounter S89.92XD and Injury of left ankle, subsequent encounter S99.912D [facility] [address] [address] May, [facility] [address] [id number] [address] [place] [address] May, Mild episode of recurrent ma shawna depressive disorder F33.0 ; Elevated blood pressure reading R03.0 ; Screening for hyperlipidemia Z13.220 ; Screening for thyroid disorder Z13.29 ; Screening for diabetes mellitus Z13.1 and History of seizures Z87.898 [facility] [address] [id number] [id number] Jul, [facility] [address] [id number] [address] [place] [address] Oct, [facility] [address] [id number] [address] [place] [address] Oct, [facility] [address] [id number] [id number] Sep, [facility] [address] [id number] [address] [place] [address], [place] [address] Sep, [facility] [address] [id number] [address] [place] [address], [place] [address] Aug, [facility] [place] [address] [id number] [place] [id number] Aug, [facility] [address] [id number] [address] [place] [address], [place] [address] Aug, [facility] [address] [id number] [address] [place] [address], [place] [address] Aug, [facility] [place] [address] [id number] [place] [id number] Aug, [facility] [address] [id number] [address] [place] [address], [place] [address] Aug, [facility] [address] [id number] [address] [place] [address], [place] [address] Aug, [facility] [place] [address] [id number] [place] [id number] Jul, [facility] [address] [id number] [address] [place] [address], [place] [address] Jul, [facility] [address] [id number] [address] [place] [address], [place] [address] Jul, [facility] [address] [id number] [address] [place] [address], [place] [address] Jul, [facility] [place] [address] [id number] [place] [id number] Jul, [facility] [address] [id number] [address] [place] [address], [place] [address] Jul, [facility] [address] [id number] [address] [place] [address], [place] [address] Jun, [facility] [address] [id number] [address] [place] [address], [place] [address] Jun, [facility] [place] [address] [id number] [place] [id number] Jun, [facility] [address] [id number] [facility] [place] [address] Jun, [facility] [place] [address] [id number] [place] [id number] Jun, [facility] [address] [id number] [address] [place] [address], [place] [address] Jun, [facility] [address] [id number] [address] [place] [address], [place] [address] Jun, [facility] [address] [id number] [address] [place] [address], [place] [address] May, [facility] [address] [id number] [address] [place] [address], [place] [address] May, [facility] [address] [id number] [place] [id number] May, [facility] [address] [id number] [address] [place] [address], [place] [address] May, [facility] [address] [id number] [address] [place] [address], [place] [address] Apr, [facility] [address] [id number] [address] [place] [address], [place] [address] Apr, [facility] [address] [id number] [place] [id number] Apr, [facility] [address] [id number] [address] [place] [address], [place] [address] Apr, [facility] [address] [id number] [address] [place] [address], [place] [address] Mar, [facility] [address] [id number] [address] [place] [address], [place] [address] Mar, [facility] [address] [id number] [facility] [address] Mar, [facility] [address] [id number] [facility] [place] [address] Mar, [facility] [place] [address] [id number] [place] [id number] Mar, [facility] [address] [id number] [facility] [place] [address] Mar, [facility] [address] [id number] [place] [id number] Mar, [facility] [address] [id number] [address] [place] [address], [place] [address] Mar, [facility] [address] [id number] [address] [place] [address], [place] [address] Feb, [facility] [address] [id number] [address] [place] [address], [place] [address] Feb, [facility] [address] [id number] [address] [place] [address], [place] [address] Feb, [facility] [address] [id number] [address] [place] [address], [place] [address] Feb, [facility] [address] [id number] [address] [place] [address], [place] [address] Feb, [facility] [address] [id number] [address] [place] [address], [place] [address] Feb, [facility] [address] [id number] [place] [id number] Feb, [facility] [address] [id number] [address] [place] [address], [place] [address] Feb, [facility] [address] [id number] [address] [place] [address], [place] [address] Jan, [facility] [address] [id number] [facility] [place] [address] Jan, [facility] [place] [address] [id number] [place] [id number] Jan, [facility] [address] [id number] [address] [place] [address], [place] [address] Jan, [facility] [address] [id number] [address] [place] [address], [place] [address] Dec, [facility] [place] [address] [id number] [place] [id number] Dec, [facility] [place] [address] [id number] [place] [id number] November, [facility] [address] [id number] [address] [place] [address], [place] [address] November, [facility] [place] [address] [id number] [place] [id number] November, [facility] [address] [id number] [address] [place] [address], [place] [address] November, [facility] [address] [id number] [address] [place] [address], [place] [address] Oct, [facility] [place] [address] [id number] [place] [id number] Oct, [facility] [place] [address] [id number] [place] [id number] Oct, [facility] [address] [id number] [address] [place] [address], [place] [address] Oct, [facility] [place] [address] [id number] [place] [id number] Oct, [facility] [address] [id number] [address] [place] [address], [place] [address] Oct, [facility] [place] [address] [id number] [place] [id number] Oct, [facility] [address] [id number] [address] [place] [address], [place] [address] Oct, [facility] [address] [id number] [address] [place] [address], [place] [address] Oct, [facility] [place] [address] [id number] [place] [id number] Oct, [facility] [address] [id number] [address] [place] [address], [place] [address] Oct, [facility] [place] [address] [id number] [place] [id number] Oct, [facility] [place] [address] [id number] [place] [id number] Sep, [facility] [address] [id number] [address] [place] [address], [place] [address] Sep, [facility] [address] [id number] [address] [place] [address], [place] [address] Sep, [facility] [place] [address] [id number] [place] [id number] Sep, [facility] [place] [address] [id number] [place] [id number] Sep, [facility] [address] [facility] [id number] [address] [place] [address] Sep, [facility] [place] [address] [id number] [place] [id number] Aug, [facility] [address] [facility] [id number] [address] [place] [address] Aug, [facility] [place] [address] [id number] [place] [id number] Aug, [facility] [address] [id number] [address] [place] [address] Aug, [facility] [address] [facility] [id number] [address] [place] [address] Aug, [facility] [address] [facility] [id number] [address] [place] [address] Aug, [facility] [place] [address] [id number] [place] [id number] Jul, [facility] [address] [id number] [address] [place] [address] Jul, [facility] [place] [address] [id number] [place] [id number] Jun, [facility] [address] [facility] [id number] [address] [place] [address] Jun, [facility] [place] [address] [id number] [place] [id number] May, [facility] [address] [facility] [id number] [address] [place] [address] May, [facility] [place] [address] [id number] [place] [id number] Apr, [facility] [address] [id number] [address] [place] [address] Apr, [facility] [place] [address] [id number] [place] [id number] Mar, [facility] [address] [facility] [id number] [address] [place] [address] Feb, [facility] [place] [address] [id number] [place] [id number] Feb, [facility] [place] [address] [id number] [place] [id number] Feb, [facility] [place] [address] [id number] [place] [id number] Feb, [facility] [address] [id number] [address] [place] [address] Jan, [facility] [place] [address] [id number] [place] [id number] Jan, [facility] [place] [address] [id number] [place] [id number] Jan, [facility] [address] [facility] [id number] [address] [place] [address] Jan, [facility] [place] [address] [id number] [place] [id number] November, [facility] [place] [address] [id number] [place] [id number] November, [facility] [address] [id number] [address] [place] [address] November, [facility] [place] [address] [id number] [place] [id number] November, [facility] [place] [address] [id number] [place] [id number] Oct, [facility] [place] [address] [id number] [place] [id number] Oct, [facility] [place] [address] [id number] [place] [id number] Sep, [facility] [place] [address] [id number] [place] [id number] Sep, [facility] [place] [address] [id number] [place] [id number] Aug, [facility] [place] [address] [id number] [place] [id number] Jul, [facility] [place] [address] [id number] [place] [id number] Jun, [facility] [address] [facility] [id number] [address] [place] [address] Jun, [facility] [address] [facility] [id number] [address] [place] [address] May, [facility] [address] [facility] [id number] [address] [place] [address] May, [facility] [place] [address] [id number] [place] [id number] May, [facility] [place] [address] [id number] [place] [id number] May, [facility] [address] [facility] [id number] [address] [place] [address] May, [facility] [address] [facility] [id number] [address] [place] [address] May, [facility] [place] [address] [id number] [place] [id number] May, [facility] [address] [id number] [address] [place] [address] May, [facility] [place] [address] [id number] [place] [id number] May, [facility] [address] [id number] [address] [place] [address], [place] [address] May, [facility] [place] [address] [id number] [place] [id number] May, [facility] [address] [id number] [address] [place] [address] May, [facility] [place] [address] [id number] [place] [id number] May, [facility] [address] [facility] [id number] [address] [place] [address] May, [facility] [address] [facility] [id number] [address] [place] [address] Apr, [facility] [address] [facility] [id number] [address] [place] [address] Apr, [facility] [address] [facility] [id number] [address] [place] [address] Apr, [facility] [address] [facility] [id number] [address] [place] [address] Apr, [facility] [place] [address] [id number] [place] [id number] Apr, [facility] [address] [id number] [address] [place] [address] Apr, [facility] [place] [address] [id number] [place] [id number] Apr, [facility] [place] [address] [id number] [place] [id number] Mar, [facility] [place] [address] [id number] [place] [id number] Mar, [facility] [place] [address] [id number] [place] [id number] Feb, [facility] [place] [address] [id number] [place] [id number] Jan, [facility] [place] [address] [id number] [place] [id number] Dec, [facility] [place] [address] [id number] [place] [id number] Dec, [facility] [place] [address] [id number] [place] [id number] November, [facility] [place] [address] [id number] [place] [id number] November, [facility] [place] [address] [id number] [place] [id number] November, [facility] [address] [facility] [id number] [address] [place] [address] November, [facility] [place] [address] [id number] [place] [id number] November, [facility] [place] [address] [id number] [place] [id number] November, [facility] [place] [address] [id number] [place] [id number] November, [facility] [place] [address] [id number] [place] [id number] Oct, [facility] [place] [address] [id number] [place] [id number] Oct, [facility] [place] [address] [id number] [place] [id number] Oct, [facility] [place] [address] [id number] [place] [id number] Oct, [facility] [place] [address] [id number] [place] [id number] Oct, [facility] [address] [facility] [id number] [place] [address] Oct, [facility] [place] [address] [id number] [place] [id number] Oct, [facility] [place] [address] [id number] [place] [id number] Oct, [facility] [place] [address] [id number] [place] [id number] Sep, [facility] [place] [address] [id number] [place] [id number] Aug, [facility] [place] [address] [id number] [place] [id number] Aug, [facility] [place] [address] [id number] [place] [id number] Jul, [facility] [place] [address] [id number] [place] [id number] Jul, [facility] [address] [facility] [id number] [address] [place] [address] Jul, [facility] [place] [address] [id number] [place] [id number] Jul, [facility] [address] [facility] [id number] [address] [place] [address] Jun, [facility] [address] [facility] [id number] [address] [place] [address] Jun, [facility] [address] [facility] [id number] [address] [place] [address] May, [facility] [address] [facility] [id number] [address] [place] [address] Apr, [facility] [address] [facility] [id number] [address] [place] [address] Apr, [facility] [address] [facility] [id number] [address] [place] [id number] Jan, [facility] [address] [facility] [id number] [address] [place] [address] Dec, [facility] [address] [facility] [id number] [address] [place] [address] Aug, [facility] [address] [id number] [address] [place] [address], [place] [address] 23 Jun, 2010 [facility] [address] [id number] [address] [place] [address], [place] [address] Jun, [facility] [address] [id number] [address] [place] [address], [place] [address] Jun, [facility] [address] [id number] [address] [place] [address], [place] [address] Jun, [facility] [address] [id number] [address] [place] [address], [place] [address] Jun, [facility] [address] [id number] [address] [place] [address], [place] [address] 15 May, 2010 [facility] [address] [id number] [address] [place] [address], [place] [address] May, [facility] [address] [id number] [address] [place] [address] May, [facility] [address] [id number] [address] [place] [address], [place] [address] Apr, [facility] [address] [id number] [address] [place] [address] Apr, [facility] [address] [id number] [address] [place] [address] Apr, [facility] [address] [id number] [address] [place] [address] Apr, [facility] [address] [id number] [address] [place] [id number] Mar, 2010 [facility] [address] [id number] [address] [place] [id number] 17 Jun, 2009 [facility] [address] [id number] [address] [place] [id number] 14 Jun, 2009 [facility] [address] [id number] [address] [place] [address] Jun, IMMUNIZATIONS No Known Immunizations SOCIAL HISTORY [...]
--- OUTSIDE RECORDS SUMMARY | 2020-01-13 17:53 | XMS REPORT ---
Author Author Ina DEJESUS [facility] Address [address] [place] [address] Care Team Providers Care Dev Ops Engineer Name Role Phone SANDY DEJESUS Unavailable PROBLEMS Type Condition ICD9-CM Code EYA12-WM Code Onset Dates Condition S tatus SNOMED Code Problem ETOH abuse F10.10 Active 12283125 Problem Mild episode of recurrent major depressive disorder F33.0 Active 142574480 ALLERGIES No Information ENCOUNTERS Encounter Location Date Diagnosis [facility] [address] [id number] [address] [place] [address] November, [facility] [address] [id number] [address] [place] [address] November, Injury of left knee, subsequ ent encounter S89.92XD and Injury of left ankle, subsequent encounter S99.912D [facility] [address] [id number] [address] [place] [address] May, [facility] [address] [id number] [address] [place] [address] May, Mild episode of recurrent ma shawna depressive disorder F33.0 ; Elevated blood pressure reading R03.0 ; Screening for hyperlipidemia Z13.220 ; Screening for thyroid disorder Z13.29 ; Screening for diabetes mellitus Z13.1 and History of seizures Z87.898 [facility] [address] [facility] [id number] [place] [id number] Jul, [facility] [address] [facility] [id number] [address] [place] [address] Oct, [facility] [address] [facility] [id number] [address] [place] [address] Oct, [facility] [address] [facility] [id number] [place] [id number] Sep, [facility] [address] [id number] [address] [place] [address], [place] [address] Sep, [facility] [address] [id number] [address] [place] [address], [place] [address] Aug, [facility] [place] [address] [id number] [place] [id number] Aug, [facility] [address] [id number] [address] [place] [address], [place] [address] Aug, [facility] [address] [id number] [address] [place] [address], [place] [address] Aug, [facility] [place] [address] [id number] [place] [id number] Aug, [facility] [address] [id number] [address] [place] [address] Aug, [facility] [address] [id number] [address] [place] [address] Aug, [facility] [place] [address] [id number] [place] [id number] Jul, [facility] [address] [id number] [address] [place] [address] Jul, [facility] [address] [id number] [address] [place] [address] Jul, [facility] [address] [id number] [address] [place] [address] Jul, [facility] [place] [address] [id number] [place] [id number] Jul, [facility] [address] [id number] [address] [place] [address] Jul, [facility] [address] [id number] [address] [place] [address] Jun, [facility] [address] [id number] [address] [place] [address] Jun, [facility] [address] [id number] [place] [id number] Jun, [facility] [address] [id number] [address] [place] [address], [place] [address] Jun, [facility] [address] [id number] [place] [id number] Jun, [facility] [address] [id number] [address] [place] [address], [place] [address] Jun, [facility] [address] [id number] [address] [place] [address], [place] [address] Jun, [facility] [address] [id number] [address] [place] [address], [place] [address] May, [facility] [address] [id number] [address] [place] [address], [place] [address] May, [facility] [address] [id number] [place] [id number] May, [facility] [address] [id number] [address] [place] [address], [place] [address] May, [facility] [address] [id number] [address] [place] [address], [place] [address] Apr, [facility] [address] [id number] [address] [place] [address], [place] [address] Apr, [facility] [address] [id number] [place] [id number] Apr, [facility] [address] [id number] [address] [place] [address], [place] [address] Apr, [facility] [address] [id number] [address] [place] [address], [place] [address] Mar, [facility] [address] [id number] [address] [place] [address], [place] [address] Mar, [facility] [address] [id number] [address] [place] [address], [place] [address] Mar, [facility] [address] [id number] [facility] [place] [address] Mar, [facility] [place] [address] [id number] [place] [id number] Mar, [facility] [address] [id number] [facility] [address] Mar, [facility] [place] [address] [id number] [place] [id number] Mar, [facility] [address] [id number] [facility] [address] Mar, [facility] [address] [id number] [address] [place] [address], [place] [address] Feb, [facility] [address] [id number] [address] [place] [address], [place] [address] Feb, [facility] [address] [id number] [address] [place] [address], [place] [address] Feb, [facility] [address] [id number] [address] [place] [address], [place] [address] Feb, [facility] [address] [id number] [address] [place] [address], [place] [address] Feb, [facility] [address] [id number] [address] [place] [address], [place] [address] Feb, [facility] [place] [address] [id number] [place] [id number] Feb, [facility] [address] [id number] [address] [place] [address], [place] [address] Feb, [facility] [address] [id number] [address] [place] [address], [place] [address] Jan, [facility] [address] [id number] [facility] [address] Jan, [facility] [place] [address] [id number] [place] [id number] Jan, [facility] [address] [id number] [address] [place] [address], [place] [address] Jan, [facility] [address] [id number] [address] [place] [address], [place] [address] Dec, [facility] [place] [address] [id number] [place] [id number] Dec, [facility] [place] [address] [id number] [place] [id number] November, [facility] [address] [id number] [address] [place] [address], [place] [address] November, [facility] [place] [address] [id number] [place] [id number] November, [facility] [address] [id number] [address] [place] [address], [place] [address] November, [facility] [address] [id number] [address] [place] [address], [place] [address] Oct, [facility] [place] [address] [id number] [place] [id number] Oct, [facility] [place] [address] [id number] [place] [id number] Oct, [facility] [address] [id number] [address] [place] [address], [place] [address] Oct, [facility] [place] [address] [id number] [place] [id number] Oct, [facility] [address] [id number] [address] [place] [address], [place] [address] Oct, [facility] [place] [address] [id number] [place] [id number] Oct, [facility] [address] [id number] [address] [place] [address], [place] [address] Oct, [facility] [address] [id number] [address] [place] [address], [place] [address] Oct, [facility] [place] [address] [id number] [place] [id number] Oct, [facility] [address] [id number] [address] [place] [address], [place] [address] Oct, [facility] [place] [address] [id number] [place] [id number] Oct, [facility] [place] [address] [id number] [place] [id number] Sep, [facility] [address] [id number] [address] [place] [address], [place] [address] Sep, [facility] [address] [id number] [address] [place] [address], [place] [address] Sep, [facility] [place] [address] [id number] [place] [id number] Sep, [facility] [place] [address] [id number] [place] [id number] Sep, [facility] [address] [id number] [address] [place] [address] Sep, [facility] [place] [address] [id number] [place] [id number] Aug, [facility] [address] [facility] [id number] [address] [place] [address] Aug, [facility] [place] [address] [id number] [place] [id number] Aug, [facility] [address] [id number] [address] [place] [address] Aug, [facility] [address] [facility] [id number] [address] [place] [address], [place] [address] Aug, [facility] [address] [facility] [id number] [address] [place] [address] Aug, [facility] [place] [address] [id number] [place] [id number] Jul, [facility] [address] [facility] [id number] [address] [place] [address] Jul, [facility] [place] [address] [id number] [place] [id number] Jun, [facility] [address] [id number] [address] [place] [address] Jun, [facility] [place] [address] [id number] [place] [id number] May, [facility] [address] [id number] [address] [place] [address] May, [facility] [place] [address] [id number] [place] [id number] Apr, [facility] [address] [id number] [address] [place] [address], [place] [address] Apr, [facility] [place] [address] [id number] [place] [id number] Mar, [facility] [address] [id number] [address] [place] [address] Feb, [facility] [place] [address] [id number] [place] [id number] Feb, [facility] [place] [address] [id number] [place] [id number] Feb, [facility] [place] [address] [id number] [place] [id number] Feb, [facility] [address] [id number] [address] [place] [address] Jan, [facility] [place] [address] [id number] [place] [id number] Jan, [facility] [place] [address] [id number] [place] [id number] Jan, [facility] [address] [id number] [address] [place] [address] Jan, [facility] [place] [address] [id number] [place] [id number] November, [facility] [place] [address] [id number] [place] [id number] November, [facility] [address] [id number] [address] [place] [address] November, [facility] [place] [address] [id number] [place] [id number] November, [facility] [place] [address] [id number] [place] [id number] Oct, [facility] [place] [address] [id number] [place] [id number] Oct, [facility] [place] [address] [id number] [place] [id number] Sep, [facility] [place] [address] [id number] [place] [id number] Sep, [facility] [place] [address] [id number] [place] [id number] Aug, [facility] [place] [address] [id number] [place] [id number] Jul, [facility] [place] [address] [id number] [place] [id number] Jun, [facility] [address] [facility] [id number] [address] [place] [address] Jun, [facility] [address] [facility] [id number] [address] [place] [address] May, [facility] [address] [facility] [id number] [address] [place] [address] May, [facility] [place] [address] [id number] [place] [id number] May, [facility] [place] [address] [id number] [place] [id number] May, [facility] [address] [facility] [id number] [address] [place] [address] May, [facility] [address] [facility] [id number] [address] [place] [address] May, [facility] [place] [address] [id number] [place] [id number] May, [facility] [address] [id number] [address] [place] [address], [place] [address] 14 May, 2012 [facility] [place] [address] [id number] [place] [id number] May, [facility] [address] [id number] [address] [place] [address] May, [facility] [place] [address] [id number] [place] [id number] May, [facility] [address] [id number] [address] [place] [address] May, [facility] [place] [address] [id number] [place] [id number] May, [facility] [address] [id number] [address] [place] [address] May, [facility] [address] [id number] [address] [place] [address] Apr, [facility] [address] [id number] [address] [place] [address] Apr, [facility] [address] [facility] [id number] [address] [place] [address] Apr, [facility] [address] [facility] [id number] [address] [place] [address] Apr, [facility] [place] [address] [id number] [place] [id number] Apr, [facility] [address] [id number] [address] [place] [address] Apr, [facility] [place] [address] [id number] [place] [id number] Apr, [facility] [place] [address] [id number] [place] [id number] Mar, [facility] [place] [address] [id number] [place] [id number] Mar, [facility] [place] [address] [id number] [place] [id number] Feb, [facility] [place] [address] [id number] [place] [id number] Jan, [facility] [place] [address] [id number] [place] [id number] Dec, [facility] [place] [address] [id number] [place] [id number] Dec, [facility] [place] [address] [id number] [place] [id number] November, [facility] [place] [address] [id number] [place] [id number] November, [facility] [place] [address] [id number] [place] [id number] November, [facility] [address] [facility] [id number] [address] [place] [address] November, [facility] [place] [address] [id number] [place] [id number] November, [facility] [place] [address] [id number] [place] [id number] November, [facility] [place] [address] [id number] [place] [id number] November, [facility] [place] [address] [id number] [place] [id number] Oct, [facility] [place] [address] [id number] [place] [id number] Oct, [facility] [place] [address] [id number] [place] [id number] Oct, [facility] [place] [address] [id number] [place] [id number] Oct, [facility] [place] [address] [id number] [place] [id number] Oct, [facility] [address] [facility] [id number] [address] [place] [address] Oct, [facility] [place] [address] [id number] [place] [id number] Oct, [facility] [place] [address] [id number] [place] [id number] Oct, [facility] [place] [address] [id number] [place] [id number] Sep, [facility] [place] [address] [id number] [place] [id number] Aug, [facility] [place] [address] [id number] [place] [id number] Aug, [facility] [place] [address] [id number] [place] [id number] Jul, [facility] [place] [address] [id number] [place] [id number] Jul, [facility] [address] [facility] [id number] [address] [place] [address] Jul, [facility] [place] [address] [id number] [place] [id number] Jul, [facility] [address] [facility] [id number] [address] [place] [address] Jun, [facility] [address] [facility] [id number] [address] [place] [address] Jun, [facility] [address] [facility] [id number] [address] [place] [address] May, [facility] [address] [facility] [id number] [address] [place] [address] Apr, [facility] [address] [facility] [id number] [address] [place] [address] Apr, [facility] [address] [facility] [id number] [address] [place] [address] Jan, [facility] [address] [facility] [id number] [address] [place] [address] Dec, [facility] [address] [facility] [id number] [address] [place] [address] Aug, [facility] [address] [id number] [address] [place] [address], [place] [address] 23 Jun, 2010 [facility] [address] [id number] [address] [place] [address], [place] [address] Jun, [facility] [address] [id number] [address] [place] [address], [place] [address] Jun, [facility] [address] [id number] [address] [place] [address], [place] [address] Jun, [facility] [address] [id number] [address] [place] [address], [place] [address] Jun, [facility] [address] [id number] [address] [place] [address], [place] [address] 15 May, 2010 [facility] [address] [id number] [address] [place] [address], [place] [address] 05 May, 2010 [facility] [address] [id number] [address] [place] [address], [place] [address] May, [facility] [address] [id number] [address] [place] [address], [place] [address] 18 Apr, 2010 [facility] [address] [id number] [address] [place] [address], [place] [address] Apr, [facility] [address] [id number] [address] [place] [address], [place] [address] Apr, [facility] [address] [id number] [address] [place] [address], [place] [address] 11 Apr, 2010 [facility] [address] [id number] [address] [place] [address], [place] [address] 10 Mar, 2010 [facility] [address] [id number] [address] [place] [address], [place] [address] 17 Jun, 2009 [facility] [address] [id number] [address] [place] [address], [place] [address] 14 Jun, 2009 [facility] [address] [id number] [address] [place] [address], [place] [address] Jun, IMMUNIZATIONS No Known Immunizations SOCIAL HISTORY [...]
--- OUTSIDE RECORDS SUMMARY | 2020-01-13 17:54 | XMS REPORT ---
Author Author Ina DEJESUS [facility] Address [address] [place] [address] Care Team Providers Care Tool Design Checker Name Role Phone SANDY DEJESUS Unavailable PROBLEMS Type Condition ICD9-CM Code [id number] Code Onset Dates Condition S tatus SNOMED Code Problem ETOH abuse F10.10 Active 33628841 Problem Mild episode of recurrent major depressive disorder F33.0 Active [id number] ALLERGIES No Information ENCOUNTERS Encounter Location Date Diagnosis [facility] [address] [id number] [address] [place] [address] November, [facility] [address] [id number] [address] [place] [address] November, Injury of left knee, subsequ ent encounter S89.92XD and Injury of left ankle, subsequent encounter S99.912D [facility] [address] [id number] [address] [place] [address] May, [facility] [address] [id number] [address] [place] [address] May, Mild episode of recurrent ma shawna depressive disorder F33.0 ; Elevated blood pressure reading R03.0 ; Screening for hyperlipidemia Z13.220 ; Screening for thyroid disorder Z13.29 ; Screening for diabetes mellitus Z13.1 and History of seizures Z87.898 [facility] [address] [facility] [id number] [place] [id number] Jul, [facility] [address] [facility] [id number] [address] [place] [id number] Oct, [facility] [address] [facility] [id number] [address] [place] [address] Oct, [facility] [address] [facility] [id number] [place] [id number] Sep, [facility] [address] [id number] [address] [place] [address], [place] [address] Sep, [facility] [address] [id number] [address] [place] [address], [place] [address] Aug, [facility] [place] [address] [id number] [place] [id number] Aug, [facility] [address] [id number] [address] [place] [address], [place] [address] Aug, [facility] [address] [id number] [address] [place] [address], [place] [address] Aug, [facility] [place] [address] [id number] [place] [id number] Aug, [facility] [address] [id number] [address] [place] [address] Aug, [facility] [address] [id number] [address] [place] [address] Aug, [facility] [place] [address] [id number] [place] [id number] Jul, [facility] [address] [id number] [address] [place] [address] Jul, [facility] [address] [id number] [address] [place] [address] Jul, [facility] [address] [id number] [address] [place] [address] Jul, [facility] [place] [address] [id number] [place] [id number] Jul, [facility] [address] [id number] [address] [place] [address] Jul, [facility] [address] [id number] [address] [place] [address] Jun, [facility] [address] [id number] [address] [place] [address] Jun, [facility] [place] [address] [id number] [place] [id number] Jun, [facility] [address] [id number] [address] [place] [address], [place] [address] Jun, [facility] [place] [address] [id number] [place] [id number] Jun, [facility] [address] [id number] [address] [place] [address], [place] [address] Jun, [facility] [address] [id number] [address] [place] [address], [place] [address] Jun, [facility] [address] [id number] [address] [place] [address], [place] [address] May, [facility] [address] [id number] [address] [place] [address], [place] [address] May, [facility] [place] [address] [id number] [place] [id number] May, [facility] [address] [id number] [address] [place] [address], [place] [address] May, [facility] [address] [id number] [address] [place] [address], [place] [address] Apr, [facility] [address] [id number] [address] [place] [address], [place] [address] Apr, [facility] [place] [address] [id number] [place] [id number] Apr, [facility] [address] [id number] [address] [place] [address], [place] [address] Apr, [facility] [address] [id number] [address] [place] [address], [place] [address] Mar, [facility] [address] [id number] [address] [place] [address], [place] [address] Mar, [facility] [address] [id number] [address] [place] [address], [place] [address] Mar, [facility] [address] [id number] [facility] [place] [address] Mar, [facility] [place] [address] [id number] [place] [id number] Mar, [facility] [address] [id number] [facility] [place] [address] Mar, [facility] [place] [address] [id number] [place] [id number] Mar, [facility] [address] [id number] [facility] [place] [address] Mar, [facility] [address] [id number] [address] [place] [address], [place] [address] Feb, [facility] [address] [id number] [address] [place] [address], [place] [address] Feb, [facility] [address] [id number] [address] [place] [address], [place] [address] Feb, [facility] [address] [id number] [address] [place] [address], [place] [address] Feb, [facility] [address] [id number] [address] [place] [address], [place] [address] Feb, [facility] [address] [id number] [address] [place] [address], [place] [address] Feb, [facility] [place] [address] [id number] [place] [id number] Feb, [facility] [address] [id number] [address] [place] [address], [place] [address] Feb, [facility] [address] [id number] [address] [place] [address], [place] [address] Jan, [facility] [address] [id number] [facility] [place] [address] Jan, [facility] [place] [address] [id number] [place] [id number] Jan, [facility] [address] [id number] [address] [place] [address], [place] [address] Jan, [facility] [address] [id number] [address] [place] [address], [place] [address] Dec, [facility] [place] [address] [id number] [place] [id number] Dec, [facility] [place] [address] [id number] [place] [id number] November, [facility] [address] [id number] [address] [place] [address], [place] [address] November, [facility] [place] [address] [id number] [place] [id number] November, [facility] [address] [id number] [address] [place] [address], [place] [address] November, [facility] [address] [id number] [address] [place] [address], [place] [address] Oct, [facility] [place] [address] [id number] [place] [id number] Oct, [facility] [place] [address] [id number] [place] [id number] Oct, [facility] [address] [id number] [address] [place] [address], [place] [address] Oct, [facility] [place] [address] [id number] [place] [id number] Oct, [facility] [address] [id number] [address] [place] [address], [place] [address] Oct, [facility] [place] [address] [id number] [place] [id number] Oct, [facility] [address] [id number] [address] [place] [address], [place] [address] Oct, [facility] [address] [id number] [address] [place] [address], [place] [address] Oct, [facility] [place] [address] [id number] [place] [id number] Oct, [facility] [address] [id number] [address] [place] [address], [place] [address] Oct, [facility] [place] [address] [id number] [place] [id number] Oct, [facility] [place] [address] [id number] [place] [id number] Sep, [facility] [address] [id number] [address] [place] [address], [place] [address] Sep, [facility] [address] [id number] [address] [place] [address], [place] [address] Sep, [facility] [place] [address] [id number] [place] [id number] Sep, [facility] [place] [address] [id number] [place] [id number] Sep, [facility] [address] [id number] [address] [place] [address] Sep, [facility] [place] [address] [id number] [place] [id number] Aug, [facility] [address] [facility] [id number] [address] [place] [address] Aug, [facility] [place] [address] [id number] [place] [id number] Aug, [facility] [address] [id number] [address] [place] [address] Aug, [facility] [address] [facility] [id number] [address] [place] [address], [place] [address] Aug, [facility] [address] [facility] [id number] [address] [place] [address] Aug, [facility] [place] [address] [id number] [place] [id number] Jul, [facility] [address] [facility] [id number] [address] [place] [address] Jul, [facility] [place] [address] [id number] [place] [id number] Jun, [facility] [address] [id number] [address] [place] [address] Jun, [facility] [place] [address] [id number] [place] [id number] May, [facility] [address] [id number] [address] [place] [address] May, [facility] [place] [address] [id number] [place] [id number] Apr, [facility] [address] [id number] [address] [place] [address], [place] [address] Apr, [facility] [place] [address] [id number] [place] [id number] Mar, [facility] [address] [id number] [address] [place] [address] Feb, [facility] [place] [address] [id number] [place] [id number] Feb, [facility] [place] [address] [id number] [place] [id number] Feb, [facility] [place] [address] [id number] [place] [id number] Feb, [facility] [address] [id number] [address] [place] [address] Jan, [facility] [place] [address] [id number] [place] [id number] Jan, [facility] [place] [address] [id number] [place] [id number] Jan, [facility] [address] [id number] [address] [place] [address] Jan, [facility] [place] [address] [id number] [place] [id number] November, [facility] [place] [address] [id number] [place] [id number] November, [facility] [address] [id number] [address] [place] [address] November, [facility] [place] [address] [id number] [place] [id number] November, [facility] [place] [address] [id number] [place] [id number] Oct, [facility] [place] [address] [id number] [place] [id number] Oct, [facility] [place] [address] [id number] [place] [id number] Sep, [facility] [place] [address] [id number] [place] [id number] Sep, [facility] [place] [address] [id number] [place] [id number] Aug, [facility] [place] [address] [id number] [place] [id number] Jul, [facility] [place] [address] [id number] [place] [id number] Jun, [facility] [address] [facility] [id number] [address] [place] [id number] Jun, [facility] [address] [facility] [id number] [address] [place] [address] May, [facility] [address] [facility] [id number] [address] [place] [address] May, [facility] [place] [address] [id number] [place] [id number] May, [facility] [place] [address] [id number] [place] [id number] May, [facility] [address] [facility] [id number] [address] [place] [address] May, [facility] [address] [facility] [id number] [address] [place] [address] May, [facility] [place] [address] [id number] [place] [id number] May, [facility] [address] [id number] [address] [place] [address], [place] [address] 14 May, 2012 [facility] [place] [address] [id number] [place] [id number] May, [facility] [address] [id number] [address] [place] [address] May, [facility] [place] [address] [id number] [place] [id number] May, [facility] [address] [id number] [address] [place] [address] May, [facility] [place] [address] [id number] [place] [id number] May, [facility] [address] [id number] [address] [place] [address] May, [facility] [address] [id number] [address] [place] [address] Apr, [facility] [address] [id number] [address] [place] [address] Apr, [facility] [address] [facility] [id number] [address] [place] [address] Apr, [facility] [address] [facility] [id number] [address] [place] [address] Apr, [facility] [place] [address] [id number] [place] [id number] Apr, [facility] [address] [id number] [address] [place] [address] Apr, [facility] [place] [address] [id number] [place] [id number] Apr, [facility] [place] [address] [id number] [place] [id number] Mar, [facility] [place] [address] [id number] [place] [id number] Mar, [facility] [place] [address] [id number] [place] [id number] Feb, [facility] [place] [address] [id number] [place] [id number] Jan, [facility] [place] [address] [id number] [place] [id number] Dec, [facility] [place] [address] [id number] [place] [id number] Dec, [facility] [place] [address] [id number] [place] [id number] November, [facility] [place] [address] [id number] [place] [id number] November, [facility] [place] [address] [id number] [place] [id number] November, [facility] [address] [facility] [id number] [address] [place] [address] November, [facility] [place] [address] [id number] [place] [id number] November, [facility] [place] [address] [id number] [place] [id number] November, [facility] [place] [address] [id number] [place] [id number] November, [facility] [place] [address] [id number] [place] [id number] Oct, [facility] [place] [address] [id number] [place] [id number] Oct, [facility] [place] [address] [id number] [place] [id number] Oct, [facility] [place] [address] [id number] [place] [id number] Oct, [facility] [place] [address] [id number] [place] [id number] Oct, [facility] [address] [facility] [id number] [address] [place] [address] Oct, [facility] [place] [address] [id number] [place] [id number] Oct, [facility] [place] [address] [id number] [place] [id number] Oct, [facility] [place] [address] [id number] [place] [id number] Sep, [facility] [place] [address] [id number] [place] [id number] Aug, [facility] [place] [address] [id number] [place] [id number] Aug, [facility] [place] [address] [id number] [place] [id number] Jul, [facility] [place] [address] [id number] [place] [id number] Jul, [facility] [address] [facility] [id number] [address] [place] [address] Jul, [facility] [place] [address] [id number] [place] [id number] Jul, [facility] [address] [facility] [id number] [address] [place] [address] Jun, [facility] [address] [facility] [id number] [address] [place] [address] Jun, [facility] [address] [facility] [id number] [address] [place] [address] May, [facility] [address] [facility] [id number] [address] [place] [address] Apr, [facility] [address] [facility] [id number] [address] [place] [address] Apr, [facility] [address] [facility] [id number] [address] [place] [address] Jan, [facility] [address] [facility] [id number] [address] [place] [address] Dec, [facility] [address] [facility] [id number] [address] [place] [address] Aug, [facility] [address] [id number] [address] [place] [address], [place] [address] 23 Jun, 2010 [facility] [address] [id number] [address] [place] [address], [place] [address] Jun, [facility] [address] [id number] [address] [place] [address], [place] [address] Jun, [facility] [address] [id number] [address] [place] [address], [place] [address] Jun, [facility] [address] [id number] [address] [place] [address], [place] [address] Jun, [facility] [address] [id number] [address] [place] [address], [place] [address] 15 May, 2010 [facility] [address] [id number] [address] [place] [address], [place] [address] 05 May, 2010 [facility] [address] [id number] [address] [place] [address], [place] [address] May, [facility] [address] [id number] [address] [place] [address], [place] [address] 18 Apr, 2010 [facility] [address] [id number] [address] [place] [address], [place] [address] Apr, [facility] [address] [id number] [address] [place] [address], [place] [address] Apr, [facility] [address] [id number] [address] [place] [address], [place] [address] 11 Apr, 2010 [facility] [address] [id number] [address] [place] [address], [place] [id number] 10 Mar, 2010 [facility] [address] [id number] [address] [place] [address], [place] [id number] 17 Jun, 2009 [facility] [address] [id number] [address] [place] [address], [place] [address] 14 Jun, 2009 [facility] [address] [id number] [address] [place] [address], [place] [address] Jun, IMMUNIZATIONS No Known Immunizations SOCIAL HISTORY Never Assessed REASON FOR VISIT PLAN OF CARE VITAL SIGNS Height 63 in 2014-06-28 Weight 116 lbs 2014-06-28 Temperature 99 degrees Fahrenheit 2014-06-28 Heart Rate 88 bpm 2014-06-28 Respiratory Rate 12 2014-06-28 Blood pressure systolic 100 mmHg 2014-06-28 Blood pressure diastolic 60 mmHg 2014-06-28 MEDICATIONS Unknown Medications RESULTS No Results PROCEDURES Procedure Date Ordered Result Body Site DRUG SCREEN, QUALITATE/MULTI Jun 28, 2014 INSTRUCTIONS MEDICATIONS ADMINISTERED No Known Medications [...]
--- OUTSIDE RECORDS SUMMARY | 2020-01-13 17:54 | XMS REPORT ---
Author Author Elba Ina [facility] Organization 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 [address] [id number] [address] [place] [id number] November, [facility] [address] [address] November, Injury of left knee, subsequ ent encounter S89.92XD and Injury of left ankle, subsequent encounter S99.912D [facility] [address] [address] May, [facility] [address] [id number] [address] [place] [address] May, Mild episode of recurrent ma shawna depressive disorder F33.0 ; Elevated blood pressure reading R03.0 ; Screening for hyperlipidemia Z13.220 ; Screening for thyroid disorder Z13.29 ; Screening for diabetes mellitus Z13.1 and History of seizures Z87.898 [facility] [address] [id number] [place] [id number] Jul, [facility] [address] [id number] [address] [place] [address] Oct, [facility] [address] [id number] [address] [place] [phone] Oct, [facility] [address] [id number] [place] [id number] Sep, [facility] [address] [id number] [address] [place] [address], [place] [address] Sep, [facility] [address] [id number] [address] [place] [address], [place] [address] Aug, [facility] [place] [address] [id number] [place] [id number] Aug, [facility] [address] [id number] [address] [place] [address], [place] [address] Aug, [facility] [address] [id number] [address] [place] [address], [place] [address] Aug, [facility] [place] [address] [id number] [place] [id number] Aug, [facility] [address] [id number] [address] [place] [address], [place] [address] Aug, [facility] [address] [id number] [address] [place] [address], [place] [address] Aug, [facility] [place] [address] [id number] [place] [id number] Jul, [facility] [address] [id number] [address] [place] [address], [place] [address] Jul, [facility] [address] [id number] [address] [place] [address], [place] [address] Jul, [facility] [address] [id number] [address] [place] [address], [place] [address] Jul, [facility] [place] [address] [id number] [place] [id number] Jul, [facility] [address] [id number] [address] [place] [address], [place] [address] Jul, [facility] [address] [id number] [address] [place] [address], [place] [address] Jun, [facility] [address] [id number] [address] [place] [address], [place] [address] Jun, [facility] [place] [address] [id number] [place] [id number] Jun, [facility] [address] [id number] [facility] [place] [address] Jun, [facility] [place] [address] [id number] [place] [id number] Jun, [facility] [address] [id number] [address] [place] [address], [place] [address] Jun, [facility] [address] [id number] [address] [place] [address], [place] [address] Jun, [facility] [address] [id number] [address] [place] [address], [place] [address] May, [facility] [address] [id number] [address] [place] [address], [place] [address] May, [facility] [place] [address] [id number] [place] [id number] May, [facility] [address] [id number] [address] [place] [address], [place] [address] May, [facility] [address] [id number] [address] [place] [address], [place] [address] Apr, [facility] [address] [id number] [address] [place] [address], [place] [address] Apr, [facility] [place] [address] [id number] [place] [id number] Apr, [facility] [address] [id number] [address] [place] [address], [place] [address] Apr, [facility] [address] [id number] [address] [place] [address], [place] [address] Mar, [facility] [address] [id number] [address] [place] [address], [place] [address] Mar, [facility] [address] [id number] [facility] [place] [address] Mar, [facility] [address] [id number] [facility] [place] [address] Mar, [facility] [place] [address] [id number] [place] [id number] Mar, [facility] [address] [id number] [facility] [place] [address] Mar, [facility] [place] [address] [id number] [place] [id number] Mar, [facility] [address] [id number] [address] [place] [address], [place] [address] Mar, [facility] [address] [id number] [address] [place] [address], [place] [address] Feb, [facility] [address] [id number] [address] [place] [address], [place] [address] Feb, [facility] [address] [id number] [address] [place] [address], [place] [address] Feb, [facility] [address] [id number] [address] [place] [address], [place] [address] Feb, [facility] [address] [id number] [address] [place] [address], [place] [address] Feb, [facility] [address] [id number] [address] [place] [address], [place] [address] Feb, [facility] [place] [address] [id number] [place] [id number] Feb, [facility] [address] [id number] [address] [place] [address], [place] [address] Feb, [facility] [address] [id number] [address] [place] [address], [place] [address] Jan, [facility] [address] [id number] [facility] [place] [address] Jan, [facility] [place] [address] [id number] [place] [id number] Jan, [facility] [address] [id number] [address] [place] [address], [place] [address] Jan, [facility] [address] [id number] [address] [place] [address], [place] [address] Dec, [facility] [place] [address] [id number] [place] [id number] Dec, [facility] [place] [address] [id number] [place] [id number] November, [facility] [address] [id number] [address] [place] [address], [place] [address] November, [facility] [place] [address] [id number] [place] [id number] November, [facility] [address] [id number] [address] [place] [address], [place] [address] November, [facility] [address] [id number] [address] [place] [address], [place] [address] Oct, [facility] [place] [address] [id number] [place] [id number] Oct, [facility] [place] [address] [id number] [place] [id number] Oct, [facility] [address] [id number] [address] [place] [address], [place] [address] Oct, [facility] [place] [address] [id number] [place] [id number] Oct, [facility] [address] [id number] [address] [place] [address], [place] [address] Oct, [facility] [place] [address] [id number] [place] [id number] Oct, [facility] [address] [id number] [address] [place] [address], [place] [address] Oct, [facility] [address] [id number] [address] [place] [address], [place] [address] Oct, [facility] [place] [address] [id number] [place] [id number] Oct, [facility] [address] [id number] [address] [place] [address], [place] [address] Oct, [facility] [place] [address] [id number] [place] [id number] Oct, [facility] [place] [address] [id number] [place] [id number] Sep, [facility] [address] [id number] [address] [place] [address], [place] [address] Sep, [facility] [address] [id number] [address] [place] [address], [place] [address] Sep, [facility] [place] [address] [id number] [place] [id number] Sep, [facility] [place] [address] [id number] [place] [id number] Sep, [facility] [address] [facility] [id number] [address] [place] [address] Sep, [facility] [place] [address] [id number] [place] [id number] Aug, [facility] [address] [facility] [id number] [address] [place] [address] Aug, [facility] [place] [address] [id number] [place] [id number] Aug, [facility] [address] [id number] [address] [place] [address] Aug, [facility] [address] [facility] [id number] [address] [place] [address] Aug, [facility] [address] [facility] [id number] [address] [place] [address] Aug, [facility] [place] [address] [id number] [place] [id number] Jul, [facility] [address] [id number] [address] [place] [address] Jul, [facility] [place] [address] [id number] [place] [id number] Jun, [facility] [address] [facility] [id number] [address] [place] [address] Jun, [facility] [place] [address] [id number] [place] [id number] May, [facility] [address] [facility] [id number] [address] [place] [address] May, [facility] [place] [address] [id number] [place] [id number] Apr, [facility] [address] [id number] [address] [place] [address] Apr, [facility] [place] [address] [id number] [place] [id number] Mar, [facility] [address] [facility] [id number] [address] [place] [address] Feb, [facility] [place] [address] [id number] [place] [id number] Feb, [facility] [place] [address] [id number] [place] [id number] Feb, [facility] [place] [address] [id number] [place] [id number] Feb, [facility] [address] [id number] [address] [place] [id number] Jan, [facility] [place] [address] [id number] [place] [id number] Jan, [facility] [place] [address] [id number] [place] [id number] Jan, [facility] [address] [facility] [id number] [address] [place] [id number] Jan, [facility] [place] [address] [id number] [place] [id number] November, [facility] [place] [address] [id number] [place] [id number] November, [facility] [address] [id number] [address] [place] [address] November, [facility] [place] [address] [id number] [place] [id number] November, [facility] [place] [address] [id number] [place] [id number] Oct, [facility] [place] [address] [id number] [place] [id number] Oct, [facility] [place] [address] [id number] [place] [id number] Sep, [facility] [place] [address] [id number] [place] [id number] Sep, [facility] [place] [address] [id number] [place] [id number] Aug, [facility] [place] [address] [id number] [place] [id number] Jul, [facility] [place] [address] [id number] [place] [id number] Jun, [facility] [address] [facility] [id number] [address] [place] [address] Jun, [facility] [address] [facility] [id number] [address] [place] [address] May, [facility] [address] [facility] [id number] [address] [place] [address] May, [facility] [place] [address] [id number] [place] [id number] May, [facility] [place] [address] [id number] [place] [id number] May, [facility] [address] [facility] [id number] [address] [place] [address] May, [facility] [address] [facility] [id number] [address] [place] [address] May, [facility] [place] [address] [id number] [place] [id number] May, [facility] [address] [id number] [address] [place] [address] May, [facility] [place] [address] [id number] [place] [id number] May, [facility] [address] [id number] [address] [place] [address], [place] [address] May, [facility] [place] [address] [id number] [place] [id number] May, [facility] [address] [id number] [address] [place] [address] May, [facility] [place] [address] [id number] [place] [id number] May, [facility] [address] [facility] [id number] [address] [place] [id number] May, [facility] [address] [facility] [id number] [address] [place] [address] Apr, [facility] [address] [facility] [id number] [address] [place] [address] Apr, [facility] [address] [facility] [id number] [address] [place] [address] Apr, [facility] [address] [facility] [id number] [address] [place] [address] Apr, [facility] [place] [address] [id number] [place] [id number] Apr, [facility] [address] [id number] [address] [place] [address] Apr, [facility] [place] [address] [id number] [place] [id number] Apr, [facility] [place] [address] [id number] [place] [id number] Mar, [facility] [place] [address] [id number] [place] [id number] Mar, [facility] [place] [address] [id number] [place] [id number] Feb, [facility] [place] [address] [id number] [place] [id number] Jan, [facility] [place] [address] [id number] [place] [id number] Dec, [facility] [place] [address] [id number] [place] [id number] Dec, [facility] [place] [address] [id number] [place] [id number] November, [facility] [place] [address] [id number] [place] [id number] November, [facility] [place] [address] [id number] [place] [id number] November, [facility] [address] [facility] [id number] [address] [place] [address] November, [facility] [place] [address] [id number] [place] [id number] November, [facility] [place] [address] [id number] [place] [id number] November, [facility] [place] [address] [id number] [place] [id number] November, [facility] [place] [address] [id number] [place] [id number] Oct, [facility] [place] [address] [id number] [place] [id number] Oct, [facility] [place] [address] [id number] [place] [id number] Oct, [facility] [place] [address] [id number] [place] [id number] Oct, [facility] [place] [address] [id number] [place] [id number] Oct, [facility] [address] [facility] [id number] [place] [address] Oct, [facility] [place] [address] [id number] [place] [id number] Oct, [facility] [place] [address] [id number] [place] [id number] Oct, [facility] [place] [address] [id number] [place] [id number] Sep, [facility] [place] [address] [id number] [place] [id number] Aug, [facility] [place] [address] [id number] [place] [id number] Aug, [facility] [place] [address] [id number] [place] [id number] Jul, [facility] [place] [address] [id number] [place] [id number] Jul, [facility] [address] [facility] [id number] [address] [place] [address] Jul, [facility] [place] [address] [id number] [place] [id number] Jul, [facility] [address] [facility] [id number] [address] [place] [id number] Jun, [facility] [address] [facility] [id number] [address] [place] [address] Jun, [facility] [address] [facility] [id number] [address] [place] [address] May, [facility] [address] [facility] [id number] [address] [place] [id number] Apr, [facility] [address] [facility] [id number] [address] [place] [id number] Apr, [facility] [address] [facility] [id number] [address] [place] [address] Jan, [facility] [address] [facility] [id number] [address] [place] [id number] Dec, [facility] [address] [facility] [id number] [address] [place] [address] Aug, [facility] [address] [id number] [address] [place] [address], [place] [address] 23 Jun, 2010 [facility] [address] [id number] [address] [place] [address], [place] [address] Jun, [facility] [address] [id number] [address] [place] [address], [place] [address] Jun, [facility] [address] [id number] [address] [place] [address], [place] [address] Jun, [facility] [address] [id number] [address] [place] [address], [place] [address] Jun, [facility] [address] [id number] [address] [place] [address], [place] [address] 15 May, 2010 [facility] [address] [id number] [address] [place] [address], [place] [address] May, [facility] [address] [id number] [address] [place] [address] May, [facility] [address] [id number] [address] [place] [address], [place] [address] Apr, [facility] [address] [id number] [address] [place] [id number] Apr, [facility] [address] [id number] [address] [place] [id number] Apr, [facility] [address] [id number] [address] [place] [phone] Apr, [facility] [address] [id number] [address] [place] [id number] 10 Mar, 2010 [facility] [address] [id number] [address] [place] [id number] 17 Jun, 2009 [facility] [address] [id number] [address] [place] [id number] 14 Jun, 2009 [facility] [address] [id number] [address] [place] [id number] Jun, IMMUNIZATIONS No Known Immunizations SOCIAL HISTORY Never Assessed REASON FOR VISIT PLAN OF CARE VITAL SIGNS MEDICATIONS Unknown Medications RESULTS No Results PROCEDURES Procedure Date Ordered Result Body Site COMPREHENSIVE CARE MANAGEMENT Apr 16, 2014 INSTRUCTIONS MEDICATIONS ADMINISTERED No Known Medications [...]
--- OUTSIDE RECORDS SUMMARY | 2020-01-13 17:54 | XMS REPORT ---
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 Name Role Phone ASNDY DEJESUS Unavailable PROBLEMS Type Condition ICD9-CM Code ZMN05-DA Code Onset Dates Condition S tatus SNOMED Code Problem ETOH abuse F10.10 Active 89537847 Problem Mild episode of recurrent major depressive disorder F33.0 Active [id number] ALLERGIES No Information ENCOUNTERS Encounter Location Date Diagnosis [facility] [address] [id number] [address] [place] [address] November, [facility] [address] [id number] [address] [place] [id number] November, Injury of left knee, subsequ ent encounter S89.92XD and Injury of left ankle, subsequent encounter S99.912D [facility] [address] [id number] [address] [place] [address] May, [facility] [address] [id number] [address] [place] [address] May, Mild episode of recurrent ma shawna depressive disorder F33.0 ; Elevated blood pressure reading R03.0 ; Screening for hyperlipidemia Z13.220 ; Screening for thyroid disorder Z13.29 ; Screening for diabetes mellitus Z13.1 and History of seizures Z87.898 [facility] [address] [facility] [id number] [place] [id number] Jul, [facility] [address] [facility] [id number] [address] [place] [address] Oct, [facility] [address] [facility] [id number] [address] [place] [address] Oct, [facility] [address] [facility] [id number] [place] [id number] Sep, [facility] [address] [id number] [address] [place] [address], [place] [address] Sep, [facility] [address] [id number] [address] [place] [address], [place] [address] Aug, [facility] [place] [address] [id number] [place] [id number] Aug, [facility] [address] [id number] [address] [place] [address], [place] [address] Aug, [facility] [address] [id number] [address] [place] [address], [place] [address] Aug, [facility] [place] [address] [id number] [place] [id number] Aug, [facility] [address] [id number] [address] [place] [address] Aug, [facility] [address] [id number] [address] [place] [address] Aug, [facility] [place] [address] [id number] [place] [id number] Jul, [facility] [address] [id number] [address] [place] [address] Jul, [facility] [address] [id number] [address] [place] [address] Jul, [facility] [address] [id number] [address] [place] [address] Jul, [facility] [place] [address] [id number] [place] [id number] Jul, [facility] [address] [id number] [address] [place] [address] Jul, [facility] [address] [id number] [address] [place] [address] Jun, [facility] [address] [id number] [address] [place] [address] Jun, [facility] [place] [address] [id number] [place] [id number] Jun, [facility] [address] [id number] [address] [place] [address], [place] [address] Jun, [facility] [place] [address] [id number] [place] [id number] Jun, [facility] [address] [id number] [address] [place] [address], [place] [address] Jun, [facility] [address] [id number] [address] [place] [address], [place] [address] Jun, [facility] [address] [id number] [address] [place] [address], [place] [address] May, [facility] [address] [id number] [address] [place] [address], [place] [address] May, [facility] [place] [address] [id number] [place] [id number] May, [facility] [address] [id number] [address] [place] [address], [place] [address] May, [facility] [address] [id number] [address] [place] [address], [place] [address] Apr, [facility] [address] [id number] [address] [place] [address], [place] [address] Apr, [facility] [place] [address] [id number] [place] [id number] Apr, [facility] [address] [id number] [address] [place] [address], [place] [address] Apr, [facility] [address] [id number] [address] [place] [address], [place] [address] Mar, [facility] [address] [id number] [address] [place] [address], [place] [address] Mar, [facility] [address] [id number] [address] [place] [address], [place] [address] Mar, [facility] [address] [id number] [facility] [address] Mar, [facility] [place] [address] [id number] [place] [id number] Mar, [facility] [address] [id number] [facility] [address] Mar, [facility] [place] [address] [id number] [place] [id number] Mar, [facility] [address] [id number] [facility] [address] Mar, [facility] [address] [id number] [address] [place] [address], [place] [address] Feb, [facility] [address] [id number] [address] [place] [address], [place] [address] Feb, [facility] [address] [id number] [address] [place] [address], [place] [address] Feb, [facility] [address] [id number] [address] [place] [address], [place] [address] Feb, [facility] [address] [id number] [address] [place] [address], [place] [address] Feb, [facility] [address] [id number] [address] [place] [address], [place] [address] Feb, [facility] [place] [address] [id number] [place] [id number] Feb, [facility] [address] [id number] [address] [place] [address], [place] [address] Feb, [facility] [address] [id number] [address] [place] [address], [place] [address] Jan, [facility] [address] [id number] [facility] [address] Jan, [facility] [place] [address] [id number] [place] [id number] Jan, [facility] [address] [id number] [address] [place] [address], [place] [address] Jan, [facility] [address] [id number] [address] [place] [address], [place] [address] Dec, [facility] [place] [address] [id number] [place] [id number] Dec, [facility] [place] [address] [id number] [place] [id number] November, [facility] [address] [id number] [address] [place] [address], [place] [address] November, [facility] [place] [address] [id number] [place] [id number] November, [facility] [address] [id number] [address] [place] [address], [place] [address] November, [facility] [address] [id number] [address] [place] [address], [place] [address] Oct, [facility] [place] [address] [id number] [place] [id number] Oct, [facility] [place] [address] [id number] [place] [id number] Oct, [facility] [address] [id number] [address] [place] [address], [place] [address] Oct, [facility] [place] [address] [id number] [place] [id number] Oct, [facility] [address] [id number] [address] [place] [address], [place] [address] Oct, [facility] [place] [address] [id number] [place] [id number] Oct, [facility] [address] [id number] [address] [place] [address], [place] [address] Oct, [facility] [address] [id number] [address] [place] [address], [place] [address] Oct, [facility] [place] [address] [id number] [place] [id number] Oct, [facility] [address] [id number] [address] [place] [address], [place] [address] Oct, [facility] [place] [address] [id number] [place] [id number] Oct, [facility] [place] [address] [id number] [place] [id number] Sep, [facility] [address] [id number] [address] [place] [address], [place] [address] Sep, [facility] [address] [id number] [address] [place] [address], [place] [address] Sep, [facility] [place] [address] [id number] [place] [id number] Sep, [facility] [place] [address] [id number] [place] [id number] Sep, [facility] [address] [id number] [address] [place] [address] Sep, [facility] [place] [address] [id number] [place] [id number] Aug, [facility] [address] [facility] [id number] [address] [place] [address] Aug, [facility] [place] [address] [id number] [place] [id number] Aug, [facility] [address] [id number] [address] [place] [address] Aug, [facility] [address] [facility] [id number] [address] [place] [address], [place] [address] Aug, [facility] [address] [facility] [id number] [address] [place] [address] Aug, [facility] [place] [address] [id number] [place] [id number] Jul, [facility] [address] [facility] [id number] [address] [place] [address] Jul, [facility] [place] [address] [id number] [place] [id number] Jun, [facility] [address] [id number] [address] [place] [address] Jun, [facility] [place] [address] [id number] [place] [id number] May, [facility] [address] [id number] [address] [place] [address] May, [facility] [place] [address] [id number] [place] [id number] Apr, [facility] [address] [id number] [address] [place] [address], [place] [address] Apr, [facility] [place] [address] [id number] [place] [id number] Mar, [facility] [address] [id number] [address] [place] [address] Feb, [facility] [place] [address] [id number] [place] [id number] Feb, [facility] [place] [address] [id number] [place] [id number] Feb, [facility] [place] [address] [id number] [place] [id number] Feb, [facility] [address] [id number] [address] [place] [address] Jan, [facility] [place] [address] [id number] [place] [id number] Jan, [facility] [place] [address] [id number] [place] [id number] Jan, [facility] [address] [id number] [address] [place] [address] Jan, [facility] [place] [address] [id number] [place] [id number] November, [facility] [place] [address] [id number] [place] [id number] November, [facility] [address] [id number] [address] [place] [address] November, [facility] [place] [address] [id number] [place] [id number] November, [facility] [place] [address] [id number] [place] [id number] Oct, [facility] [place] [address] [id number] [place] [id number] Oct, [facility] [place] [address] [id number] [place] [id number] Sep, [facility] [place] [address] [id number] [place] [id number] Sep, [facility] [place] [address] [id number] [place] [id number] Aug, [facility] [place] [address] [id number] [place] [id number] Jul, [facility] [place] [address] [id number] [place] [id number] Jun, [facility] [address] [facility] [id number] [address] [place] [address] Jun, [facility] [address] [facility] [id number] [address] [place] [address] May, [facility] [address] [facility] [id number] [address] [place] [address] May, [facility] [place] [address] [id number] [place] [id number] May, [facility] [place] [address] [id number] [place] [id number] May, [facility] [address] [facility] [id number] [address] [place] [address] May, [facility] [address] [facility] [id number] [address] [place] [address] May, [facility] [place] [address] [id number] [place] [id number] May, [facility] [address] [id number] [address] [place] [address], [place] [address] 14 May, 2012 [facility] [place] [address] [id number] [place] [id number] May, [facility] [address] [id number] [address] [place] [address] May, [facility] [place] [address] [id number] [place] [id number] May, [facility] [address] [id number] [address] [place] [address] May, [facility] [place] [address] [id number] [place] [id number] May, [facility] [address] [id number] [address] [place] [address] May, [facility] [address] [id number] [address] [place] [address] Apr, [facility] [address] [id number] [address] [place] [address] Apr, [facility] [address] [facility] [id number] [address] [place] [address] Apr, [facility] [address] [facility] [id number] [address] [place] [address] Apr, [facility] [place] [address] [id number] [place] [id number] Apr, [facility] [address] [id number] [address] [place] [address] Apr, [facility] [place] [address] [id number] [place] [id number] Apr, [facility] [place] [address] [id number] [place] [id number] Mar, [facility] [place] [address] [id number] [place] [id number] Mar, [facility] [place] [address] [id number] [place] [id number] Feb, [facility] [place] [address] [id number] [place] [id number] Jan, [facility] [place] [address] [id number] [place] [id number] Dec, [facility] [place] [address] [id number] [place] [id number] Dec, [facility] [place] [address] [id number] [place] [id number] November, [facility] [place] [address] [id number] [place] [id number] November, [facility] [place] [address] [id number] [place] [id number] November, [facility] [address] [facility] [id number] [address] [place] [address] November, [facility] [place] [address] [id number] [place] [id number] November, [facility] [place] [address] [id number] [place] [id number] November, [facility] [place] [address] [id number] [place] [id number] November, [facility] [place] [address] [id number] [place] [id number] Oct, [facility] [place] [address] [id number] [place] [id number] Oct, [facility] [place] [address] [id number] [place] [id number] Oct, [facility] [place] [address] [id number] [place] [id number] Oct, [facility] [place] [address] [id number] [place] [id number] Oct, [facility] [place] [address] [facility] [id number] [address] [place] [address] Oct, [facility] [place] [address] [id number] [place] [id number] Oct, [facility] [place] [address] [id number] [place] [id number] Oct, [facility] [place] [address] [id number] [place] [id number] Sep, [facility] [place] [address] [id number] [place] [id number] Aug, [facility] [place] [address] [id number] [place] [id number] Aug, [facility] [place] [address] [id number] [place] [id number] Jul, [facility] [place] [address] [id number] [place] [id number] Jul, [facility] [address] [facility] [id number] [address] [place] [address] Jul, [facility] [place] [address] [id number] [place] [id number] Jul, [facility] [address] [facility] [id number] [address] [place] [address] Jun, [facility] [address] [facility] [id number] [address] [place] [address] Jun, [facility] [address] [facility] [id number] [address] [place] [address] May, [facility] [address] [facility] [id number] [address] [place] [address] Apr, [facility] [address] [facility] [id number] [address] [place] [address] Apr, [facility] [address] [facility] [id number] [address] [place] [id number] Jan, [facility] [address] [facility] [id number] [address] [place] [address] Dec, [facility] [address] [facility] [id number] [address] [place] [address] Aug, [facility] [address] [id number] [address] [place] [address], [place] [address] 23 Jun, 2010 [facility] [address] [id number] [address] [place] [address], [place] [address] Jun, [facility] [address] [id number] [address] [place] [address], [place] [address] Jun, [facility] [address] [id number] [address] [place] [address], [place] [address] Jun, [facility] [address] [id number] [address] [place] [address], [place] [address] Jun, [facility] [address] [id number] [address] [place] [address], [place] [address] 15 May, 2010 [facility] [address] [id number] [address] [place] [address], [place] [address] 05 May, 2010 [facility] [address] [id number] [address] [place] [address], [place] [address] May, [facility] [address] [id number] [address] [place] [address], [place] [address] 18 Apr, 2010 [facility] [address] [id number] [address] [place] [address], [place] [address] Apr, [facility] [address] [id number] [address] [place] [address], [place] [address] Apr, [facility] [address] [id number] [address] [place] [address], [place] [address] 11 Apr, 2010 [facility] [address] [id number] [address] [place] [address], [place] [address] 10 Mar, 2010 [facility] [address] [id number] [address] [place] [address], [place] [address] 17 Jun, 2009 [facility] [address] [id number] [address] [place] [address], [place] [address] 14 Jun, 2009 [facility] [address] [id number] [address] [place] [address], [place] [address] Jun, IMMUNIZATIONS No Known Immunizations SOCIAL HISTORY [...]
--- OUTSIDE RECORDS SUMMARY | 2020-01-13 17:54 | XMS REPORT ---
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 Name Role Phone SANDY DEJESUS Unavailable PROBLEMS Type Condition ICD9-CM Code CEG32-KQ Code Onset Dates Condition S tatus SNOMED Code Problem ETOH abuse F10.10 Active 73527878 Problem Mild episode of recurrent major depressive disorder F33.0 Active [id number] ALLERGIES No Information ENCOUNTERS Encounter Location Date Diagnosis [facility] [address] [id number] [address] [place] [address] November, [facility] [address] [id number] [address] [place] [address] November, Injury of left knee, subsequ ent encounter S89.92XD and Injury of left ankle, subsequent encounter S99.912D [facility] [id number] [address] [place] [address] May, [facility] [address] [id number] [address] [place] [address] May, Mild episode of recurrent ma shawna depressive disorder F33.0 ; Elevated blood pressure reading R03.0 ; Screening for hyperlipidemia Z13.220 ; Screening for thyroid disorder Z13.29 ; Screening for diabetes mellitus Z13.1 and History of seizures Z87.898 [facility] [address] [facility] [id number] [place] [id number] Jul, [facility] [address] [facility] [id number] [address] [place] [address] Oct, [facility] [address] [facility] [id number] [address] [place] [address] Oct, [facility] [address] [facility] [id number] [place] [id number] Sep, [facility] [address] [id number] [address] [place] [address], [place] [address] Sep, [facility] [address] [id number] [address] [place] [address], [place] [address] Aug, [facility] [place] [address] [id number] [place] [id number] Aug, [facility] [address] [id number] [address] [place] [address], [place] [address] Aug, [facility] [address] [id number] [address] [place] [address], [place] [address] Aug, [facility] [place] [address] [id number] [place] [id number] Aug, [facility] [address] [id number] [address] [place] [address] Aug, [facility] [address] [id number] [address] [place] [address] Aug, [facility] [place] [address] [id number] [place] [id number] Jul, [facility] [address] [id number] [address] [place] [address] Jul, [facility] [address] [id number] [address] [place] [address] Jul, [facility] [address] [id number] [address] [place] [address] Jul, [facility] [place] [address] [id number] [place] [id number] Jul, [facility] [address] [id number] [address] [place] [address] Jul, [facility] [address] [id number] [address] [place] [address] Jun, [facility] [address] [id number] [address] [place] [address] Jun, [facility] [place] [address] [id number] [place] [id number] Jun, [facility] [address] [id number] [address] [place] [address], [place] [address] Jun, [facility] [place] [address] [id number] [place] [id number] Jun, [facility] [address] [id number] [address] [place] [address], [place] [address] Jun, [facility] [address] [id number] [address] [place] [address], [place] [address] Jun, [facility] [address] [id number] [address] [place] [address], [place] [address] May, [facility] [address] [id number] [address] [place] [address], [place] [address] May, [facility] [place] [address] [id number] [place] [id number] May, [facility] [address] [id number] [address] [place] [address], [place] [address] May, [facility] [address] [id number] [address] [place] [address], [place] [address] Apr, [facility] [address] [id number] [address] [place] [address], [place] [address] Apr, [facility] [place] [place] [address] [id number] [place] [id number] Apr, [facility] [address] [id number] [address] [place] [address], [place] [address] Apr, [facility] [address] [id number] [address] [place] [address], [place] [address] Mar, [facility] [address] [id number] [address] [place] [address], [place] [address] Mar, [facility] [address] [id number] [address] [place] [address], [place] [address] Mar, [facility] [address] [id number] [facility] [place] [address] Mar, [facility] [place] [address] [id number] [place] [id number] Mar, [facility] [address] [id number] [facility] [place] [address] Mar, [facility] [place] [address] [id number] [place] [id number] Mar, [facility] [address] [id number] [facility] [place] [address] Mar, [facility] [address] [id number] [address] [place] [address], [place] [address] Feb, [facility] [address] [id number] [address] [place] [address], [place] [address] Feb, [facility] [address] [id number] [address] [place] [address], [place] [address] Feb, [facility] [address] [id number] [address] [place] [address], [place] [address] Feb, [facility] [address] [id number] [address] [place] [address], [place] [address] Feb, [facility] [address] [id number] [address] [place] [address], [place] [address] Feb, [facility] [place] [address] [id number] [place] [id number] Feb, [facility] [address] [id number] [address] [place] [address], [place] [address] Feb, [facility] [address] [id number] [address] [place] [address], [place] [address] Jan, [facility] [address] [id number] [facility] [place] [address] Jan, [facility] [place] [address] [id number] [place] [id number] Jan, [facility] [address] [id number] [address] [place] [address], [place] [address] Jan, [facility] [address] [id number] [address] [place] [address], [place] [address] Dec, [facility] [place] [address] [id number] [place] [id number] Dec, [facility] [place] [address] [id number] [place] [id number] November, [facility] [address] [id number] [address] [place] [address], [place] [address] November, [facility] [place] [address] [id number] [place] [id number] November, [facility] [address] [id number] [address] [place] [address], [place] [address] November, [facility] [address] [id number] [address] [place] [address], [place] [address] Oct, [facility] [place] [address] [id number] [place] [id number] Oct, [facility] [place] [address] [id number] [place] [id number] Oct, [facility] [address] [id number] [address] [place] [address], [place] [address] Oct, [facility] [place] [address] [id number] [place] [id number] Oct, [facility] [address] [id number] [address] [place] [address], [place] [address] Oct, [facility] [place] [address] [id number] [place] [id number] Oct, [facility] [address] [id number] [address] [place] [address], [place] [address] Oct, [facility] [address] [id number] [address] [place] [address], [place] [address] Oct, [facility] [place] [address] [id number] [place] [id number] Oct, [facility] [address] [id number] [address] [place] [address], [place] [address] Oct, [facility] [place] [address] [id number] [place] [id number] Oct, [facility] [place] [address] [id number] [place] [id number] Sep, [facility] [address] [id number] [address] [place] [address], [place] [address] Sep, [facility] [address] [id number] [address] [place] [address], [place] [address] Sep, [facility] [place] [address] [id number] [place] [id number] Sep, [facility] [place] [address] [id number] [place] [id number] Sep, [facility] [address] [id number] [address] [place] [address] Sep, [facility] [place] [address] [id number] [place] [id number] Aug, [facility] [address] [facility] [id number] [address] [place] [address] Aug, [facility] [place] [address] [id number] [place] [id number] Aug, [facility] [address] [id number] [address] [place] [address] Aug, [facility] [address] [facility] [id number] [address] [place] [address], [place] [address] Aug, [facility] [address] [facility] [id number] [address] [place] [address] Aug, [facility] [place] [address] [id number] [place] [id number] Jul, [facility] [address] [facility] [id number] [address] [place] [address] Jul, [facility] [place] [address] [id number] [place] [id number] Jun, [facility] [address] [id number] [address] [place] [address] Jun, [facility] [place] [address] [id number] [place] [id number] May, [facility] [address] [id number] [address] [place] [address] May, [facility] [place] [address] [id number] [place] [id number] Apr, [facility] [address] [id number] [address] [place] [address], [place] [address] Apr, [facility] [place] [address] [id number] [place] [id number] Mar, [facility] [address] [id number] [address] [place] [address] Feb, [facility] [place] [address] [id number] [place] [id number] Feb, [facility] [place] [address] [id number] [place] [id number] Feb, [facility] [place] [address] [id number] [place] [id number] Feb, [facility] [address] [id number] [address] [place] [address] Jan, [facility] [place] [address] [id number] [place] [id number] Jan, [facility] [place] [address] [id number] [place] [id number] Jan, [facility] [address] [id number] [address] [place] [address] Jan, [facility] [place] [address] [id number] [place] [id number] November, [facility] [place] [address] [id number] [place] [id number] November, [facility] [address] [id number] [address] [place] [address] November, [facility] [place] [address] [id number] [place] [id number] November, [facility] [place] [address] [id number] [place] [id number] Oct, [facility] [place] [address] [id number] [place] [id number] Oct, [facility] [place] [address] [id number] [place] [id number] Sep, [facility] [place] [address] [id number] [place] [id number] Sep, [facility] [place] [address] [id number] [place] [id number] Aug, [facility] [place] [address] [id number] [place] [id number] Jul, [facility] [place] [address] [id number] [place] [id number] Jun, [facility] [address] [facility] [id number] [address] [place] [address] Jun, [facility] [address] [facility] [id number] [address] [place] [address] May, [facility] [address] [facility] [id number] [address] [place] [address] May, [facility] [place] [address] [id number] [place] [id number] May, [facility] [place] [address] [id number] [place] [id number] May, [facility] [address] [facility] [id number] [address] [place] [address] May, [facility] [address] [facility] [id number] [address] [place] [address] May, [facility] [place] [address] [id number] [place] [id number] May, [facility] [address] [id number] [address] [place] [address], [place] [address] 14 May, 2012 [facility] [place] [address] [id number] [place] [id number] May, [facility] [address] [id number] [address] [place] [address] May, [facility] [place] [address] [id number] [place] [id number] May, [facility] [address] [id number] [address] [place] [address] May, [facility] [place] [address] [id number] [place] [id number] May, [facility] [address] [id number] [address] [place] [address] May, [facility] [address] [id number] [address] [place] [address] Apr, [facility] [address] [id number] [address] [place] [address] Apr, [facility] [address] [facility] [id number] [address] [place] [address] Apr, [facility] [address] [facility] [id number] [address] [place] [address] Apr, [facility] [place] [address] [id number] [place] [id number] Apr, [facility] [address] [id number] [address] [place] [address] Apr, [facility] [place] [address] [id number] [place] [id number] Apr, [facility] [place] [address] [id number] [place] [id number] Mar, [facility] [place] [address] [id number] [place] [id number] Mar, [facility] [place] [address] [id number] [place] [id number] Feb, [facility] [place] [address] [id number] [place] [id number] Jan, [facility] [place] [address] [id number] [place] [id number] Dec, [facility] [place] [address] [id number] [place] [id number] Dec, [facility] [place] [address] [id number] [place] [id number] November, [facility] [place] [address] [id number] [place] [id number] November, [facility] [place] [address] [id number] [place] [id number] November, [facility] [address] [facility] [id number] [address] [place] [address] November, [facility] [place] [address] [id number] [place] [id number] November, [facility] [place] [address] [id number] [place] [id number] November, [facility] [place] [address] [id number] [place] [id number] November, [facility] [place] [address] [id number] [place] [id number] Oct, [facility] [place] [address] [id number] [place] [id number] Oct, [facility] [place] [address] [id number] [place] [id number] Oct, [facility] [place] [address] [id number] [place] [id number] Oct, [facility] [place] [address] [id number] [place] [id number] Oct, [facility] [address] [facility] [id number] [address] [place] [address] Oct, [facility] [place] [address] [id number] [place] [id number] Oct, [facility] [place] [address] [id number] [place] [id number] Oct, [facility] [place] [address] [id number] [place] [id number] Sep, [facility] [place] [address] [id number] [place] [id number] Aug, [facility] [place] [address] [id number] [place] [id number] Aug, [facility] [place] [address] [id number] [place] [id number] Jul, [facility] [place] [address] [id number] [place] [id number] Jul, [facility] [address] [facility] [id number] [address] [place] [address] Jul, [facility] [place] [address] [id number] [place] [id number] Jul, [facility] [address] [facility] [id number] [address] [place] [address] Jun, [facility] [address] [facility] [id number] [address] [place] [address] Jun, [facility] [address] [facility] [id number] [address] [place] [address] May, [facility] [address] [facility] [id number] [address] [place] [address] Apr, [facility] [address] [facility] [id number] [address] [place] [address] Apr, [facility] [address] [facility] [id number] [address] [place] [address] Jan, [facility] [address] [facility] [id number] [address] [place] [address] Dec, [facility] [address] [facility] [id number] [address] [place] [address] Aug, [facility] [address] [id number] [address] [place] [address], [place] [address] 23 Jun, 2010 [facility] [address] [id number] [address] [place] [address], [place] [address] Jun, [facility] [address] [id number] [address] [place] [address], [place] [address] Jun, [facility] [address] [id number] [address] [place] [address], [place] [address] Jun, [facility] [address] [id number] [address] [place] [address], [place] [address] Jun, [facility] [address] [id number] [address] [place] [address], [place] [address] 15 May, 2010 [facility] [address] [id number] [address] [place] [address], [place] [address] 05 May, 2010 [facility] [address] [id number] [address] [place] [address], [place] [address] May, [facility] [address] [id number] [address] [place] [address], [place] [address] 18 Apr, 2010 [facility] [address] [id number] [address] [place] [address], [place] [address] Apr, [facility] [address] [id number] [address] [place] [address], [place] [address] Apr, [facility] [address] [id number] [address] [place] [address], [place] [address] 11 Apr, 2010 [facility] [address] [id number] [address] [place] [address], [place] [address] 10 Mar, 2010 [facility] [address] [id number] [address] [place] [address], [place] [address] 17 Jun, 2009 [facility] [address] [id number] [address] [place] [address], [place] [id number] 14 Jun, 2009 [facility] [address] [id number] [address] [place] [address], [place] [id number] Jun, IMMUNIZATIONS No Known Immunizations SOCIAL HISTORY Never Assessed REASON FOR VISIT PLAN OF CARE VITAL SIGNS MEDICATIONS Unknown Medications RESULTS No Results PROCEDURES Procedure Date Ordered Result Body Site DRUG SCREEN, QUALITATE/MULTI Jul 30, 2014 INSTRUCTIONS MEDICATIONS ADMINISTERED No Known Medications [...]
--- OUTSIDE RECORDS SUMMARY | 2020-01-13 17:54 | XMS REPORT ---
Author Author Ina Staley Doctor Organization [facility] Address Unknown Phone Unavailable Care Team Providers Care Criminal Investigator Name Role Phone Migration, Doctor Unavailable Unavailable PROBLEMS Type Condition ICD9-CM Code VTY90-YZ Code Onset Dates Condition S tatus SNOMED Code Problem ETOH abuse F10.10 Active 57331044 Problem Mild episode of recurrent major depressive disorder F33.0 Active [id number] ALLERGIES No Information ENCOUNTERS Encounter Location Date Diagnosis [facility] [address] [id number] [address] [place] [address] November, [facility] [address] [id number] [address] [place] [address] November, Injury of left knee, subsequ ent encounter S89.92XD and Injury of left ankle, subsequent encounter S99.912D [facility] [id number] [place] [address] May, [facility] [address] [id number] [address] [place] [address] May, Mild episode of recurrent ma shawna depressive disorder F33.0 ; Elevated blood pressure reading R03.0 ; Screening for hyperlipidemia Z13.220 ; Screening for thyroid disorder Z13.29 ; Screening for diabetes mellitus Z13.1 and History of seizures Z87.898 [facility] [address] [facility] [id number] [place] [id number] Jul, [facility] [address] [facility] [id number] [address] [place] [address] Oct, [facility] [address] [facility] [id number] [address] [place] [address] Oct, [facility] [address] [facility] [id number] [place] [id number] Sep, [facility] [address] [facility] [id number] [address] [place] [address], [place] [address] Sep, [facility] [address] [id number] [address] [place] [address], [place] [address] Aug, [facility] [place] [address] [id number] [place] [id number] Aug, [facility] [address] [id number] [address] [place] [address], [place] [address] Aug, [facility] [address] [id number] [address] [place] [address], [place] [address] Aug, [facility] [place] [address] [id number] [place] [id number] Aug, [facility] [address] [id number] [address] [place] [address], [place] [address] Aug, [facility] [address] [id number] [address] [place] [address], [place] [address] Aug, [facility] [place] [address] [id number] [place] [id number] Jul, [facility] [address] [id number] [address] [place] [address], [place] [address] Jul, [facility] [address] [id number] [address] [place] [address], [place] [address] Jul, [facility] [address] [id number] [address] [place] [address], [place] [address] Jul, [facility] [place] [address] [id number] [place] [id number] Jul, [facility] [address] [id number] [address] [place] [address] Jul, [facility] [address] [id number] [address] [place] [address], [place] [address] Jun, [facility] [address] [id number] [address] [place] [address], [place] [address] Jun, [facility] [place] [address] [facility] [id number] [place] [id number] Jun, [facility] [address] [id number] [address] [place] [address], [place] [address] Jun, [facility] [place] [address] [id number] [place] [id number] Jun, [facility] [address] [id number] [address] [place] [address], [place] [address] Jun, [facility] [address] [id number] [address] [place] [address], [place] [address] Jun, [facility] [address] [id number] [address] [place] [address], [place] [address] May, [facility] [address] [id number] [address] [place] [address], [place] [address] May, [facility] [place] [address] [id number] [place] [id number] May, [facility] [address] [id number] [address] [place] [address], [place] [address] May, [facility] [address] [id number] [address] [place] [address] Apr, [facility] [address] [id number] [address] [place] [address], [place] [address] Apr, [facility] [place] [address] [id number] [place] [id number] Apr, [facility] [address] [id number] [address] [place] [address] Apr, [facility] [address] [id number] [address] [place] [address], [place] [address] Mar, [facility] [address] [id number] [address] [place] [address], [place] [address] Mar, [facility] [address] [id number] [address] [place] [address], [place] [address] Mar, [facility] [address] [id number] [address] [place] [address], [place] [address] Mar, [facility] [place] [address] [id number] [place] [id number] Mar, [facility] [address] [id number] [address] [place] [address], [place] [address] Mar, [facility] [place] [address] [id number] [place] [id number] Mar, [facility] [address] [id number] [address] [place] [address], [place] [address] Mar, [facility] [address] [id number] [address] [place] [address], [place] [address] Feb, [facility] [address] [id number] [address] [place] [address], [place] [address] Feb, [facility] [address] [id number] [address] [place] [address], [place] [address] Feb, [facility] [address] [id number] [address] [place] [address], [place] [address] Feb, [facility] [address] [id number] [address] [place] [address] Feb, [facility] [address] [id number] [address] [place] [address], [place] [address] Feb, [facility] [place] [address] [id number] [place] [id number] Feb, [facility] [address] [id number] [address] [place] [address] Feb, [facility] [address] [id number] [address] [place] [address], [place] [address] Jan, [facility] [address] [id number] [address] [place] [address] Jan, [facility] [place] [address] [id number] [place] [id number] Jan, [facility] [address] [id number] [address] [place] [address], [place] [address] Jan, [facility] [address] [id number] [address] [place] [address], [place] [address] Dec, [facility] [place] [address] [id number] [place] [id number] Dec, [facility] [place] [address] [id number] [place] [id number] November, [facility] [address] [id number] [address] [place] [address], [place] [address] November, [facility] [place] [address] [id number] [place] [id number] November, [facility] [address] [id number] [address] [place] [address], [place] [address] November, [facility] [address] [id number] [address] [place] [address], [place] [address] Oct, [facility] [place] [address] [id number] [place] [id number] Oct, [facility] [place] [address] [id number] [place] [id number] Oct, [facility] [address] [id number] [address] [place] [address], [place] [address] Oct, [facility] [place] [address] [id number] [place] [id number] Oct, [facility] [address] [id number] [address] [place] [address], [place] [address] Oct, [facility] [place] [address] [id number] [place] [id number] Oct, [facility] [address] [id number] [address] [place] [address], [place] [address] Oct, [facility] [address] [id number] [address] [place] [address], [place] [address] Oct, [facility] [place] [address] [id number] [place] [id number] Oct, [facility] [address] [id number] [facility] [place] [address] Oct, [facility] [place] [address] [id number] [place] [id number] Oct, [facility] [place] [address] [id number] [place] [id number] Sep, [facility] [address] [id number] [address] [place] [address], [place] [address] Sep, [facility] [address] [id number] [address] [place] [address], [place] [address] Sep, [facility] [place] [address] [id number] [place] [id number] Sep, [facility] [place] [address] [id number] [place] [id number] Sep, [facility] [address] [id number] [address] [place] [address], [place] [address] Sep, [facility] [place] [address] [id number] [place] [id number] Aug, [facility] [address] [id number] [address] [place] [address], [place] [address] Aug, [facility] [place] [address] [id number] [place] [id number] Aug, [facility] [address] [id number] [address] [place] [address], [place] [address] Aug, [facility] [address] [id number] [address] [place] [address], [place] [address] Aug, [facility] [address] [id number] [address] [place] [address], [place] [address] Aug, [facility] [place] [address] [id number] [place] [id number] Jul, [facility] [address] [facility] [id number] [address] [place] [address], [place] [address] Jul, [facility] [place] [address] [id number] [place] [id number] Jun, [facility] [address] [id number] [address] [place] [address], [place] [address] Jun, [facility] [place] [address] [id number] [place] [id number] May, [facility] [address] [id number] [address] [place] [address], [place] [address] May, [facility] [place] [address] [id number] [place] [id number] Apr, [facility] [address] [id number] [address] [place] [address], [place] [address] Apr, [facility] [place] [address] [id number] [place] [id number] Mar, [facility] [address] [facility] [id number] [address] [place] [address], [place] [address] Feb, [facility] [place] [address] [id number] [place] [id number] Feb, [facility] [place] [address] [id number] [place] [id number] Feb, [facility] [place] [address] [id number] [place] [id number] Feb, [facility] [address] [id number] [address] [place] [address], [place] [address] Jan, [facility] [place] [address] [id number] [place] [id number] Jan, [facility] [place] [address] [id number] [place] [id number] Jan, [facility] [address] [id number] [address] [place] [address], [place] [address] Jan, [facility] [place] [address] [id number] [place] [id number] November, [facility] [place] [address] [id number] [place] [id number] November, [facility] [address] [id number] [address] [place] [address] November, [facility] [place] [address] [id number] [place] [id number] November, [facility] [place] [address] [id number] [place] [id number] Oct, [facility] [place] [address] [id number] [place] [id number] Oct, [facility] [place] [address] [id number] [place] [id number] Sep, [facility] [place] [address] [id number] [place] [id number] Sep, [facility] [place] [address] [id number] [place] [id number] Aug, [facility] [place] [address] [id number] [place] [id number] Jul, [facility] [place] [address] [id number] [place] [id number] Jun, [facility] [address] [facility] [id number] [address] [place] [address] Jun, [facility] [address] [facility] [id number] [address] [place] [address] May, [facility] [address] [facility] [id number] [address] [place] [address] May, [facility] [place] [address] [id number] [place] [id number] May, [facility] [place] [address] [id number] [place] [id number] May, [facility] [address] [facility] [id number] [address] [place] [address] May, [facility] [address] [facility] [id number] [address] [place] [address] May, [facility] [place] [address] [id number] [place] [id number] May, [facility] [address] [facility] [id number] [address] [place] [address] 14 May, 2012 [facility] [place] [address] [id number] [place] [id number] May, [facility] [address] [facility] [id number] [address] [place] [address] May, [facility] [place] [address] [id number] [place] [id number] May, [facility] [address] [id number] [address] [place] [address] May, [facility] [place] [address] [id number] [place] [id number] May, [facility] [address] [facility] [id number] [address] [place] [address] May, [facility] [address] [facility] [id number] [address] [place] [address] Apr, [facility] [address] [facility] [id number] [address] [place] [address] Apr, [facility] [address] [facility] [id number] [address] [place] [address] Apr, [facility] [address] [facility] [id number] [address] [place] [address] Apr, [facility] [place] [address] [id number] [place] [id number] Apr, [facility] [address] [facility] [id number] [address] [place] [address] Apr, [facility] [place] [address] [id number] [place] [id number] Apr, [facility] [place] [address] [id number] [place] [id number] Mar, [facility] [place] [address] [id number] [place] [id number] Mar, [facility] [place] [address] [id number] [place] [id number] Feb, [facility] [place] [address] [id number] [place] [id number] Jan, [facility] [place] [address] [id number] [place] [id number] Dec, [facility] [place] [address] [id number] [place] [id number] Dec, [facility] [place] [address] [id number] [place] [id number] November, [facility] [place] [address] [id number] [place] [id number] November, [facility] [place] [address] [id number] [place] [id number] November, [facility] [place] [address] [id number] [address] [place] [address] November, [facility] [place] [address] [id number] [place] [id number] November, [facility] [place] [address] [id number] [place] [id number] November, [facility] [place] [address] [id number] [place] [id number] November, [facility] [place] [address] [id number] [place] [id number] Oct, [facility] [place] [address] [id number] [place] [id number] Oct, [facility] [place] [address] [id number] [place] [id number] Oct, [facility] [place] [address] [id number] [place] [id number] Oct, [facility] [place] [address] [id number] [place] [id number] Oct, [facility] [place] [address] [id number] [address] [place] [address] Oct, [facility] [place] [address] [id number] [place] [id number] Oct, [facility] [place] [address] [id number] [place] [id number] Oct, [facility] [place] [address] [id number] [place] [id number] Sep, [facility] [place] [address] [id number] [place] [id number] Aug, [facility] [place] [address] [id number] [place] [id number] Aug, [facility] [place] [address] [id number] [place] [id number] Jul, [facility] [place] [address] [id number] [place] [id number] Jul, [facility] [address] [id number] [address] [place] [address] Jul, [facility] [place] [address] [id number] [place] [id number] Jul, [facility] [address] [facility] [id number] [address] [place] [address] Jun, [facility] [address] [id number] [address] [place] [address] Jun, [facility] [address] [facility] [id number] [address] [place] [address] May, [facility] [address] [facility] [id number] [address] [place] [address] Apr, [facility] [address] [facility] [id number] [address] [place] [address] Apr, [facility] [address] [facility] [id number] [address] [place] [address] Jan, [facility] [address] [facility] [id number] [address] [place] [address] Dec, [facility] [address] [facility] [id number] [address] [place] [address] Aug, [facility] [address] [facility] [id number] [address] [place] [address] Jun, [facility] [address] [id number] [address] [place] [address] Jun, [facility] [address] [id number] [address] [place] [address] Jun, [facility] [address] [id number] [address] [place] [address] Jun, [facility] [address] [id number] [address] [place] [address] Jun, [facility] [address] [id number] [address] [place] [address] May, [facility] [address] [id number] [address] [place] [address] May, [facility] [address] [id number] [address] [place] [address] May, [facility] [address] [id number] [address] [place] [address] Apr, [facility] [address] [id number] [address] [place] [address] Apr, [facility] [address] [id number] [address] [place] [address] Apr, [facility] [address] [id number] [address] [place] [address] Apr, [facility] [address] [id number] [address] [place] [address] Mar, [facility] [address] [id number] [address] [place] [address] Jun, [facility] [address] [id number] [address] [place] [address] Jun, [facility] [address] [id number] [address] [place] [address] Jun, IMMUNIZATIONS No Known Immunizations SOCIAL HISTORY [...]
--- OUTSIDE RECORDS SUMMARY | 2020-01-13 17:55 | XMS REPORT ---
Author Author Ina Staley Doctor Organization [facility] Address Unknown Phone Unavailable Care Team Providers Care Biomedical Equipment Support Specialist Name Role Phone Migration, Doctor Unavailable Unavailable PROBLEMS Type Condition ICD9-CM Code [id number] Code Onset Dates Condition S tatus SNOMED Code Problem ETOH abuse F10.10 Active 03938878 Problem Mild episode of recurrent major depressive disorder F33.0 Active 415449235 ALLERGIES Substance Reaction Event Type Date Status Strattera 40 Mg Capsule hallucinations Non Drug Allergy Oct, 201 5 Active ENCOUNTERS Encounter Location Date Diagnosis [facility] [address] [id number] [address] [place] [id number] November, [facility] [address] [id number] [address] [place] [id number] November, Injury of left knee, subsequ ent encounter S89.92XD and Injury of left ankle, subsequent encounter S99.912D [facility] [address] [id number] [address] [place] [id number] May, [facility] [address] [id number] [address] [place] [id number] May, Mild episode of recurrent ma shawna depressive disorder F33.0 ; Elevated blood pressure reading R03.0 ; Screening for hyperlipidemia Z13.220 ; Screening for thyroid disorder Z13.29 ; Screening for diabetes mellitus Z13.1 and History of seizures Z87.898 [facility] [address] [facility] [id number] [place] [id number] Jul, [facility] [address] [facility] [id number] [address] [place] [phone] Oct, [facility] [address] [facility] [id number] [address] [place] [id number] Oct, [facility] [address] [id number] [place] [id number] Sep, [facility] [address] [id number] [address] [place] [address], [place] [address] Sep, [facility] [address] [id number] [address] [place] [address], [place] [address] Aug, [facility] [place] [address] [id number] [place] [id number] Aug, [facility] [address] [id number] [address] [place] [address], [place] [address] Aug, [facility] [address] [id number] [address] [place] [address], [place] [address] Aug, [facility] [place] [address] [id number] [place] [id number] Aug, [facility] [address] [id number] [address] [place] [address], [place] [address] Aug, [facility] [address] [id number] [address] [place] [id number] Aug, [facility] [place] [address] [id number] [place] [id number] Jul, [facility] [address] [id number] [address] [place] [id number] Jul, [facility] [address] [id number] [address] [place] [id number] Jul, [facility] [address] [id number] [address] [place] [id number] Jul, [facility] [place] [address] [id number] [place] [id number] Jul, [facility] [address] [id number] [address] [place] [id number] Jul, [facility] [address] [id number] [address] [place] [id number] Jun, [facility] [address] [id number] [address] [place] [id number] Jun, [facility] [address] [id number] [place] [id number] Jun, [facility] [address] [id number] [address] [place] [address], [place] [address] Jun, [facility] [address] [id number] [place] [id number] Jun, [facility] [address] [id number] [address] [place] [address], [place] [address] Jun, [facility] [address] [id number] [address] [place] [address], [place] [address] Jun, [facility] [address] [id number] [address] [place] [address], [place] [address] May, [facility] [address] [id number] [address] [place] [address], [place] [address] May, [facility] [address] [id number] [place] [id number] May, [facility] [address] [id number] [address] [place] [address], [place] [address] May, [facility] [address] [id number] [address] [place] [address], [place] [address] Apr, [facility] [address] [id number] [address] [place] [address], [place] [address] Apr, [facility] [address] [id number] [place] [id number] Apr, [facility] [address] [id number] [address] [place] [address], [place] [address] Apr, [facility] [address] [id number] [address] [place] [address], [place] [address] Mar, [facility] [address] [id number] [address] [place] [address], [place] [address] Mar, [facility] [address] [id number] [address] [place] [address], [place] [address] Mar, [facility] [address] [id number] [facility] [address] Mar, [facility] [place] [address] [id number] [place] [id number] Mar, [facility] [address] [id number] [facility] [address] Mar, [facility] [place] [address] [id number] [place] [id number] Mar, [facility] [address] [id number] [facility] [address] Mar, [facility] [address] [id number] [address] [place] [address], [place] [address] Feb, [facility] [address] [id number] [address] [place] [address], [place] [address] Feb, [facility] [address] [id number] [address] [place] [address], [place] [address] Feb, [facility] [address] [id number] [address] [place] [address], [place] [address] Feb, [facility] [address] [id number] [address] [place] [address], [place] [address] Feb, [facility] [address] [id number] [address] [place] [address], [place] [address] Feb, [facility] [place] [address] [id number] [place] [id number] Feb, [facility] [address] [id number] [facility] [address] Feb, [facility] [address] [id number] [address] [place] [address], [place] [address] Jan, [facility] [address] [id number] [facility] [place] [address] Jan, [facility] [place] [address] [id number] [place] [id number] Jan, [facility] [address] [id number] [address] [place] [address], [place] [address] Jan, [facility] [address] [id number] [address] [place] [address], [place] [address] Dec, [facility] [place] [address] [id number] [place] [id number] Dec, [facility] [place] [address] [id number] [place] [id number] November, [facility] [address] [id number] [address] [place] [address], [place] [address] November, [facility] [place] [address] [id number] [place] [id number] November, [facility] [address] [id number] [address] [place] [address], [place] [address] November, [facility] [address] [id number] [address] [place] [address], [place] [address] Oct, [facility] [place] [address] [id number] [place] [id number] Oct, [facility] [place] [address] [id number] [place] [id number] Oct, [facility] [address] [id number] [address] [place] [address], [place] [address] Oct, [facility] [place] [address] [id number] [place] [id number] Oct, [facility] [address] [id number] [address] [place] [address], [place] [address] Oct, [facility] [place] [address] [id number] [place] [id number] Oct, [facility] [address] [id number] [address] [place] [address], [place] [address] Oct, [facility] [address] [id number] [address] [place] [address], [place] [address] Oct, [facility] [place] [address] [id number] [place] [id number] Oct, [facility] [address] [id number] [address] [place] [address], [place] [address] Oct, [facility] [place] [address] [id number] [place] [id number] Oct, [facility] [place] [address] [id number] [place] [id number] Sep, [facility] [address] [id number] [address] [place] [address], [place] [address] Sep, [facility] [address] [id number] [address] [place] [address], [place] [address] Sep, [facility] [place] [address] [id number] [place] [id number] Sep, [facility] [place] [address] [id number] [place] [id number] Sep, [facility] [address] [id number] [address] [place] [address], [place] [address] Sep, [facility] [place] [address] [id number] [place] [id number] Aug, [facility] [address] [id number] [address] [place] [address] Aug, [facility] [place] [address] [id number] [place] [id number] Aug, [facility] [address] [id number] [address] [place] [id number] Aug, [facility] [address] [id number] [address] [place] [address], [place] [address] Aug, [facility] [address] [id number] [address] [place] [id number] Aug, [facility] [place] [address] [id number] [place] [id number] Jul, [facility] [address] [facility] [id number] [address] [place] [id number] Jul, [facility] [place] [address] [id number] [place] [id number] Jun, [facility] [address] [id number] [facility] [address] Jun, [facility] [place] [address] [id number] [place] [id number] May, [facility] [address] [id number] [address] [place] [address], [place] [address] May, [facility] [place] [address] [id number] [place] [id number] Apr, [facility] [address] [id number] [address] [place] [address], [place] [address] Apr, [facility] [place] [address] [id number] [place] [id number] Mar, [facility] [address] [facility] [id number] [address] [place] [address], [place] [address] Feb, [facility] [place] [address] [id number] [place] [id number] Feb, [facility] [place] [address] [id number] [place] [id number] Feb, [facility] [place] [address] [id number] [place] [id number] Feb, [facility] [address] [id number] [address] [place] [address], [place] [address] Jan, [facility] [place] [address] [id number] [place] [id number] Jan, [facility] [place] [address] [id number] [place] [id number] Jan, [facility] [address] [id number] [address] [place] [address], [place] [address] Jan, [facility] [place] [address] [id number] [place] [id number] November, [facility] [place] [address] [id number] [place] [id number] November, [facility] [address] [id number] [address] [place] [address] November, [facility] [place] [address] [id number] [place] [id number] November, [facility] [place] [address] [id number] [place] [id number] Oct, [facility] [place] [address] [id number] [place] [id number] Oct, [facility] [place] [address] [id number] [place] [id number] Sep, [facility] [place] [address] [id number] [place] [id number] Sep, [facility] [place] [address] [id number] [place] [id number] Aug, [facility] [place] [address] [id number] [place] [id number] Jul, [facility] [place] [address] [id number] [place] [id number] Jun, [facility] [address] [facility] [id number] [address] [place] [id number] Jun, [facility] [address] [facility] [id number] [address] [place] [id number] May, [facility] [address] [facility] [id number] [address] [place] [address] May, [facility] [place] [address] [id number] [place] [id number] May, [facility] [place] [address] [id number] [place] [id number] May, [facility] [address] [facility] [id number] [address] [place] [id number] May, [facility] [address] [facility] [id number] [address] [place] [id number] May, [facility] [place] [address] [id number] [place] [id number] May, [facility] [address] [id number] [address] [place] [address], [place] [address] 14 May, 2012 [facility] [place] [address] [id number] [place] [id number] May, [facility] [address] [id number] [address] [place] [id number] May, [facility] [place] [address] [id number] [place] [id number] May, [facility] [address] [id number] [address] [place] [address], [place] [address] May, [facility] [place] [address] [id number] [place] [id number] May, [facility] [address] [id number] [address] [place] [id number] May, [facility] [address] [facility] [id number] [address] [place] [address] Apr, [facility] [address] [id number] [address] [place] [address], [place] [address] Apr, [facility] [address] [facility] [id number] [address] [place] [id number] Apr, [facility] [address] [facility] [id number] [address] [place] [id number] Apr, [facility] [place] [address] [id number] [place] [id number] Apr, [facility] [address] [id number] [address] [place] [address] Apr, [facility] [place] [address] [id number] [place] [id number] Apr, [facility] [place] [address] [id number] [place] [id number] Mar, [facility] [place] [address] [id number] [place] [id number] Mar, [facility] [place] [address] [id number] [place] [id number] Feb, [facility] [place] [address] [id number] [place] [id number] Jan, [facility] [place] [address] [id number] [place] [id number] Dec, [facility] [place] [address] [id number] [place] [id number] Dec, [facility] [place] [address] [id number] [place] [id number] November, [facility] [place] [address] [id number] [place] [id number] November, [facility] [place] [address] [id number] [place] [id number] November, [facility] [address] [facility] [id number] [address] [place] [address] November, [facility] [place] [address] [id number] [place] [id number] November, [facility] [place] [address] [id number] [place] [id number] November, [facility] [place] [address] [id number] [place] [id number] November, [facility] [place] [address] [id number] [place] [id number] Oct, [facility] [place] [address] [id number] [place] [id number] Oct, [facility] [place] [address] [id number] [place] [id number] Oct, [facility] [place] [address] [id number] [place] [id number] Oct, [facility] [place] [address] [id number] [place] [id number] Oct, [facility] [address] [facility] [id number] [address] [place] [id number] Oct, [facility] [place] [address] [id number] [place] [id number] Oct, [facility] [place] [address] [id number] [place] [id number] Oct, [facility] [place] [address] [id number] [place] [id number] Sep, [facility] [place] [address] [id number] [place] [id number] Aug, [facility] [place] [address] [id number] [place] [id number] Aug, [facility] [place] [address] [id number] [place] [id number] Jul, [facility] [place] [address] [id number] [place] [id number] Jul, [facility] [address] [facility] [id number] [address] [place] [id number] Jul, [facility] [place] [address] [id number] [place] [id number] Jul, [facility] [address] [facility] [id number] [address] [place] [id number] Jun, [facility] [address] [facility] [id number] [address] [place] [id number] Jun, [facility] [address] [facility] [id number] [address] [place] [id number] May, [facility] [address] [facility] [id number] [address] [place] [id number] Apr, [facility] [address] [facility] [id number] [address] [place] [id number] Apr, [facility] [address] [facility] [id number] [address] [place] [id number] Jan, [facility] [address] [facility] [id number] [address] [place] [id number] Dec, [facility] [address] [facility] [id number] [address] [place] [id number] Aug, [facility] [address] [id number] [address] [place] [address], [place] [address] 23 Jun, 2010 [facility] [address] [id number] [address] [place] [address], [place] [address] Jun, [facility] [address] [id number] [address] [place] [address], [place] [address] Jun, [facility] [address] [id number] [address] [place] [address], [place] [address] Jun, [facility] [address] [id number] [address] [place] [address], [place] [address] Jun, [facility] [address] [id number] [address] [place] [address], [place] [address] 15 May, 2010 [facility] [address] [id number] [address] [place] [address], [place] [address] 05 May, 2010 [facility] [address] [id number] [address] [place] [address], [place] [address] May, [facility] [address] [id number] [address] [place] [address], [place] [address] 18 Apr, 2010 [facility] [address] [id number] [address] [place] [address], [place] [address] Apr, [facility] [address] [id number] [address] [place] [id number] Apr, [facility] [address] [id number] [address] [place] [address], [place] [address] Apr, [facility] [address] [id number] [address] [place] [id number] 10 Mar, 2010 [facility] [address] [id number] [address] [place] [address], [place] [address] 17 Jun, 2009 [facility] [address] [id number] [address] [place] [address], [place] [address] 14 Jun, 2009 [facility] [address] [id number] [address] [place] [id number] Jun, IMMUNIZATIONS No Known Immunizations SOCIAL HISTORY Never Assessed REASON FOR VISIT [facility] [place] PLAN OF CARE VITAL SIGNS MEDICATIONS Medication Instructions Dosage Frequency Start Date End Date Duration S tatus Bactrim DS 800-160 mg 1 tablet by Oral route 2 times p er day for 10 day(s) Mar, Active Augmentin 875-125 mg 1 tablet by Oral route 2 times pe r day for 14 day(s) November, Active Nitrofurantoin Macrocrystal 100 mg 1 cap kala by Oral route 2 times per day for 7 day(s) Sep, Active Adderall 20 mg take 1 tablet by Ora l route 2 times per day before breakfast and at noon Sep, Active RESULTS No Results PROCEDURES No Known procedures [...]
--- OUTSIDE RECORDS SUMMARY | 2020-01-13 17:55 | XMS REPORT ---
Author Author Ina Staley Doctor Organization [facility] Address Unknown Phone Unavailable Care Team Providers Care Residential Tech Name Role Phone Migration, Doctor Unavailable Unavailable PROBLEMS Type Condition ICD9-CM Code HER00-IU Code Onset Dates Condition S tatus SNOMED Code Problem ETOH abuse F10.10 Active 91154546 Problem Mild episode of recurrent major depressive disorder F33.0 Active [id number] ALLERGIES No Information ENCOUNTERS Encounter Location Date Diagnosis [facility] [address] [id number] [address] [place] [id number] November, [facility] [address] [id number] [address] [place] [address] November, Injury of left knee, subsequ ent encounter S89.92XD and Injury of left ankle, subsequent encounter S99.912D [facility] [id number] [place] [address] May, [facility] [address] [id number] [address] [place] [address] May, Mild episode of recurrent ma shawna depressive disorder F33.0 ; Elevated blood pressure reading R03.0 ; Screening for hyperlipidemia Z13.220 ; Screening for thyroid disorder Z13.29 ; Screening for diabetes mellitus Z13.1 and History of seizures Z87.898 [facility] [address] [facility] [id number] [place] [id number] Jul, [facility] [address] [facility] [id number] [address] [place] [phone] Oct, [facility] [address] [facility] [id number] [address] [place] [phone] Oct, [facility] [address] [facility] [id number] [place] [id number] Sep, [facility] [address] [facility] [id number] [address] [place] [address], [place] [address] Sep, [facility] [address] [id number] [address] [place] [address], [place] [address] Aug, [facility] [place] [address] [id number] [place] [id number] Aug, [facility] [address] [id number] [address] [place] [address], [place] [address] Aug, [facility] [address] [id number] [address] [place] [address], [place] [address] Aug, [facility] [place] [address] [id number] [place] [id number] Aug, [facility] [address] [id number] [address] [place] [address], [place] [address] Aug, [facility] [address] [id number] [address] [place] [address], [place] [address] Aug, [facility] [place] [address] [id number] [place] [id number] Jul, [facility] [address] [id number] [address] [place] [address], [place] [address] Jul, [facility] [address] [id number] [address] [place] [address], [place] [address] Jul, [facility] [address] [id number] [address] [place] [address], [place] [address] Jul, [facility] [place] [address] [id number] [place] [id number] Jul, [facility] [address] [id number] [address] [place] [phone] Jul, [facility] [address] [id number] [address] [place] [address], [place] [address] Jun, [facility] [address] [id number] [address] [place] [address], [place] [address] Jun, [facility] [place] [address] [facility] [id number] [place] [id number] Jun, [facility] [address] [id number] [address] [place] [address], [place] [address] Jun, [facility] [place] [address] [id number] [place] [id number] Jun, [facility] [address] [id number] [address] [place] [address], [place] [address] Jun, [facility] [address] [id number] [address] [place] [address], [place] [address] Jun, [facility] [address] [id number] [address] [place] [address], [place] [address] May, [facility] [address] [id number] [address] [place] [address], [place] [address] May, [facility] [place] [address] [id number] [place] [id number] May, [facility] [address] [id number] [address] [place] [address], [place] [address] May, [facility] [address] [id number] [address] [place] [address] Apr, [facility] [address] [id number] [address] [place] [address], [place] [address] Apr, [facility] [place] [address] [id number] [place] [id number] Apr, [facility] [address] [id number] [address] [place] [address] Apr, [facility] [address] [id number] [address] [place] [address], [place] [address] Mar, [facility] [address] [id number] [address] [place] [address], [place] [address] Mar, [facility] [address] [id number] [address] [place] [address], [place] [address] Mar, [facility] [address] [id number] [address] [place] [address], [place] [address] Mar, [facility] [place] [address] [id number] [place] [id number] Mar, [facility] [address] [id number] [address] [place] [address], [place] [address] Mar, [facility] [place] [address] [id number] [place] [id number] Mar, [facility] [address] [id number] [address] [place] [address], [place] [address] Mar, [facility] [address] [id number] [address] [place] [address], [place] [address] Feb, [facility] [address] [id number] [address] [place] [address], [place] [address] Feb, [facility] [address] [id number] [address] [place] [address], [place] [address] Feb, [facility] [address] [id number] [address] [place] [address], [place] [address] Feb, [facility] [address] [id number] [address] [place] [address] Feb, [facility] [address] [id number] [address] [place] [address], [place] [address] Feb, [facility] [place] [address] [id number] [place] [id number] Feb, [facility] [address] [id number] [address] [place] [address] Feb, [facility] [address] [id number] [address] [place] [address], [place] [address] Jan, [facility] [address] [id number] [address] [place] [address] Jan, [facility] [place] [address] [id number] [place] [id number] Jan, [facility] [address] [id number] [address] [place] [address], [place] [address] Jan, [facility] [address] [id number] [address] [place] [address], [place] [address] Dec, [facility] [place] [address] [id number] [place] [id number] Dec, [facility] [place] [address] [id number] [place] [id number] November, [facility] [address] [id number] [address] [place] [address], [place] [address] November, [facility] [place] [address] [id number] [place] [id number] November, [facility] [address] [id number] [address] [place] [address], [place] [address] November, [facility] [address] [id number] [address] [place] [address], [place] [address] Oct, [facility] [place] [address] [id number] [place] [id number] Oct, [facility] [place] [address] [id number] [place] [id number] Oct, [facility] [address] [id number] [address] [place] [address], [place] [address] Oct, [facility] [place] [address] [id number] [place] [id number] Oct, [facility] [address] [id number] [address] [place] [address], [place] [address] Oct, [facility] [place] [address] [id number] [place] [id number] Oct, [facility] [address] [id number] [address] [place] [address], [place] [address] Oct, [facility] [address] [id number] [address] [place] [address], [place] [address] Oct, [facility] [place] [address] [id number] [place] [id number] Oct, [facility] [address] [id number] [facility] [place] [address] Oct, [facility] [place] [address] [id number] [place] [id number] Oct, [facility] [place] [address] [id number] [place] [id number] Sep, [facility] [address] [id number] [address] [place] [address], [place] [address] Sep, [facility] [address] [id number] [address] [place] [address], [place] [address] Sep, [facility] [place] [address] [id number] [place] [id number] Sep, [facility] [place] [address] [id number] [place] [id number] Sep, [facility] [address] [id number] [address] [place] [address], [place] [address] Sep, [facility] [place] [address] [id number] [place] [id number] Aug, [facility] [address] [id number] [address] [place] [address], [place] [address] Aug, [facility] [place] [address] [id number] [place] [id number] Aug, [facility] [address] [id number] [address] [place] [address], [place] [address] Aug, [facility] [address] [id number] [address] [place] [address], [place] [address] Aug, [facility] [address] [id number] [address] [place] [address], [place] [address] Aug, [facility] [place] [address] [id number] [place] [id number] Jul, [facility] [address] [facility] [id number] [address] [place] [address], [place] [address] Jul, [facility] [place] [address] [id number] [place] [id number] Jun, [facility] [address] [id number] [address] [place] [address], [place] [address] Jun, [facility] [place] [address] [id number] [place] [id number] May, [facility] [address] [id number] [address] [place] [address], [place] [address] May, [facility] [place] [address] [id number] [place] [id number] Apr, [facility] [address] [id number] [address] [place] [address], [place] [address] Apr, [facility] [place] [address] [id number] [place] [id number] Mar, [facility] [address] [facility] [id number] [address] [place] [address], [place] [address] Feb, [facility] [place] [address] [id number] [place] [id number] Feb, [facility] [place] [address] [id number] [place] [id number] Feb, [facility] [place] [address] [id number] [place] [id number] Feb, [facility] [address] [id number] [address] [place] [address], [place] [address] Jan, [facility] [place] [address] [id number] [place] [id number] Jan, [facility] [place] [address] [id number] [place] [id number] Jan, [facility] [address] [id number] [address] [place] [address], [place] [address] Jan, [facility] [place] [address] [id number] [place] [id number] November, [facility] [place] [address] [id number] [place] [id number] November, [facility] [address] [id number] [address] [place] [address] November, [facility] [place] [address] [id number] [place] [id number] November, [facility] [place] [address] [id number] [place] [id number] Oct, [facility] [place] [address] [id number] [place] [id number] Oct, [facility] [place] [address] [id number] [place] [id number] Sep, [facility] [place] [address] [id number] [place] [id number] Sep, [facility] [place] [address] [id number] [place] [id number] Aug, [facility] [place] [address] [id number] [place] [id number] Jul, [facility] [place] [address] [id number] [place] [id number] Jun, [facility] [address] [facility] [id number] [address] [place] [address] Jun, [facility] [address] [facility] [id number] [address] [place] [address] May, [facility] [address] [facility] [id number] [address] [place] [address] May, [facility] [place] [address] [id number] [place] [id number] May, [facility] [place] [address] [id number] [place] [id number] May, [facility] [address] [facility] [id number] [address] [place] [address] May, [facility] [address] [facility] [id number] [address] [place] [address] May, [facility] [place] [address] [id number] [place] [id number] May, [facility] [address] [facility] [id number] [address] [place] [id number] 14 May, 2012 [facility] [place] [address] [id number] [place] [id number] May, [facility] [address] [facility] [id number] [address] [place] [address] May, [facility] [place] [address] [id number] [place] [id number] May, [facility] [address] [id number] [address] [place] [address] May, [facility] [place] [address] [id number] [place] [id number] May, [facility] [address] [facility] [id number] [address] [place] [address] May, [facility] [address] [facility] [id number] [address] [place] [address] Apr, [facility] [address] [facility] [id number] [address] [place] [address] Apr, [facility] [address] [facility] [id number] [address] [place] [address] Apr, [facility] [address] [facility] [id number] [address] [place] [address] Apr, [facility] [place] [address] [id number] [place] [id number] Apr, [facility] [address] [facility] [id number] [address] [place] [address] Apr, [facility] [place] [address] [id number] [place] [id number] Apr, [facility] [place] [address] [id number] [place] [id number] Mar, [facility] [place] [address] [id number] [place] [id number] Mar, [facility] [place] [address] [id number] [place] [id number] Feb, [facility] [place] [address] [id number] [place] [id number] Jan, [facility] [place] [address] [id number] [place] [id number] Dec, [facility] [place] [address] [id number] [place] [id number] Dec, [facility] [place] [address] [id number] [place] [id number] November, [facility] [place] [address] [id number] [place] [id number] November, [facility] [place] [address] [id number] [place] [id number] November, [facility] [address] [id number] [address] [place] [address] November, [facility] [place] [address] [id number] [place] [id number] November, [facility] [place] [address] [id number] [place] [id number] November, [facility] [place] [address] [id number] [place] [id number] November, [facility] [place] [address] [id number] [place] [id number] Oct, [facility] [place] [address] [id number] [place] [id number] Oct, [facility] [place] [address] [id number] [place] [id number] Oct, [facility] [place] [address] [id number] [place] [id number] Oct, [facility] [place] [address] [id number] [place] [id number] Oct, [facility] [address] [id number] [address] [place] [address] Oct, [facility] [place] [address] [id number] [place] [id number] Oct, [facility] [place] [address] [id number] [place] [id number] Oct, [facility] [place] [address] [id number] [place] [id number] Sep, [facility] [place] [address] [id number] [place] [id number] Aug, [facility] [place] [address] [id number] [place] [id number] Aug, [facility] [place] [address] [id number] [place] [id number] Jul, [facility] [place] [address] [id number] [place] [id number] Jul, [facility] [address] [id number] [address] [place] [address] Jul, [facility] [place] [address] [id number] [place] [id number] Jul, [facility] [address] [facility] [id number] [address] [place] [address] Jun, [facility] [address] [id number] [address] [place] [address] Jun, [facility] [address] [facility] [id number] [address] [place] [id number] May, [facility] [address] [facility] [id number] [address] [place] [address] Apr, [facility] [address] [facility] [id number] [address] [place] [id number] Apr, [facility] [address] [facility] [id number] [address] [place] [id number] Jan, [facility] [address] [facility] [id number] [address] [place] [address] Dec, [facility] [address] [facility] [id number] [address] [place] [address] Aug, [facility] [address] [facility] [id number] [address] [place] [address] Jun, [facility] [address] [id number] [address] [place] [address] Jun, [facility] [address] [id number] [address] [place] [id number] Jun, [facility] [address] [id number] [address] [place] [address] Jun, [facility] [address] [id number] [address] [place] [id number] Jun, [facility] [address] [id number] [address] [place] [address] May, [facility] [address] [id number] [address] [place] [address] May, [facility] [address] [id number] [address] [place] [id number] May, [facility] [address] [id number] [address] [place] [address] Apr, [facility] [address] [id number] [address] [place] [id number] Apr, [facility] [address] [id number] [address] [place] [id number] Apr, [facility] [address] [id number] [address] [place] [id number] Apr, [facility] [address] [id number] [address] [place] [id number] Mar, [facility] [address] [id number] [address] [place] [phone] Jun, [facility] [address] [id number] [address] [place] [id number] Jun, [facility] [address] [id number] [address] [place] [phone] Jun, IMMUNIZATIONS No Known Immunizations SOCIAL HISTORY [...]
--- OUTSIDE RECORDS SUMMARY | 2020-01-13 17:55 | XMS REPORT ---
Author Author Ina Staley Doctor Organization [facility] Address Unknown Phone Unavailable Care Team Providers Care Green Chainer Name Role Phone Migration, Doctor Unavailable Unavailable PROBLEMS Type Condition ICD9-CM Code MIZ87-AR Code Onset Dates Condition S tatus SNOMED Code Problem ETOH abuse F10.10 Active 45069249 Problem Mild episode of recurrent major depressive disorder F33.0 Active [id number] ALLERGIES No Information ENCOUNTERS Encounter Location Date Diagnosis [facility] [address] [id number] [address] [place] [id number] November, [facility] [address] [id number] [address] [place] [id number] November, Injury of left knee, subsequ ent encounter S89.92XD and Injury of left ankle, subsequent encounter S99.912D [facility] [id number] [place] [id number] May, [facility] [address] [id number] [address] [place] [id number] May, Mild episode of recurrent ma shawna depressive disorder F33.0 ; Elevated blood pressure reading R03.0 ; Screening for hyperlipidemia Z13.220 ; Screening for thyroid disorder Z13.29 ; Screening for diabetes mellitus Z13.1 and History of seizures Z87.898 [facility] [address] [facility] [id number] [place] [id number] Jul, [facility] [address] [facility] [id number] [address] [place] [id number] Oct, [facility] [address] [facility] [id number] [address] [place] [id number] Oct, [facility] [address] [facility] [id number] [place] [id number] Sep, [facility] [address] [facility] [id number] [address] [place] [address], [place] [address] Sep, [facility] [address] [id number] [address] [place] [address], [place] [address] Aug, [facility] [place] [address] [id number] [place] [id number] Aug, [facility] [address] [id number] [address] [place] [address], [place] [address] Aug, [facility] [address] [id number] [address] [place] [address], [place] [address] Aug, [facility] [place] [address] [id number] [place] [id number] Aug, [facility] [address] [id number] [address] [place] [address], [place] [address] Aug, [facility] [address] [id number] [address] [place] [address], [place] [address] Aug, [facility] [place] [address] [id number] [place] [id number] Jul, [facility] [address] [id number] [address] [place] [address], [place] [address] Jul, [facility] [address] [id number] [address] [place] [address], [place] [address] Jul, [facility] [address] [id number] [address] [place] [address], [place] [address] Jul, [facility] [place] [address] [id number] [place] [id number] Jul, [facility] [address] [id number] [address] [place] [id number] Jul, [facility] [address] [id number] [address] [place] [address], [place] [address] Jun, [facility] [address] [id number] [address] [place] [address], [place] [address] Jun, [facility] [place] [address] [facility] [id number] [place] [id number] Jun, [facility] [address] [id number] [address] [place] [address], [place] [address] Jun, [facility] [place] [address] [id number] [place] [id number] Jun, [facility] [address] [id number] [address] [place] [address], [place] [address] Jun, [facility] [address] [id number] [address] [place] [address], [place] [address] Jun, [facility] [address] [id number] [address] [place] [address], [place] [address] May, [facility] [address] [id number] [address] [place] [address], [place] [address] May, [facility] [place] [address] [id number] [place] [id number] May, [facility] [address] [id number] [address] [place] [address], [place] [address] May, [facility] [address] [id number] [address] [place] [id number] Apr, [facility] [address] [id number] [address] [place] [address], [place] [address] Apr, [facility] [place] [address] [id number] [place] [id number] Apr, [facility] [address] [id number] [address] [place] [id number] Apr, [facility] [address] [id number] [address] [place] [address], [place] [address] Mar, [facility] [address] [id number] [address] [place] [address], [place] [address] Mar, [facility] [address] [id number] [address] [place] [address], [place] [address] Mar, [facility] [address] [id number] [address] [place] [address], [place] [address] Mar, [facility] [place] [address] [id number] [place] [id number] Mar, [facility] [address] [id number] [address] [place] [address], [place] [address] Mar, [facility] [place] [address] [id number] [place] [id number] Mar, [facility] [address] [id number] [address] [place] [address], [place] [address] Mar, [facility] [address] [id number] [address] [place] [address], [place] [address] Feb, [facility] [address] [id number] [address] [place] [address], [place] [address] Feb, [facility] [address] [id number] [address] [place] [address], [place] [address] Feb, [facility] [address] [id number] [address] [place] [address], [place] [address] Feb, [facility] [address] [id number] [address] [place] [id number] Feb, [facility] [address] [id number] [address] [place] [address], [place] [address] Feb, [facility] [place] [address] [id number] [place] [id number] Feb, [facility] [address] [id number] [address] [place] [id number] Feb, [facility] [address] [id number] [address] [place] [address], [place] [address] Jan, [facility] [address] [id number] [address] [place] [id number] Jan, [facility] [place] [address] [id number] [place] [id number] Jan, [facility] [address] [id number] [address] [place] [address], [place] [address] Jan, [facility] [address] [id number] [address] [place] [address], [place] [address] Dec, [facility] [place] [address] [id number] [place] [id number] Dec, [facility] [place] [address] [id number] [place] [id number] November, [facility] [address] [id number] [address] [place] [address], [place] [address] November, [facility] [place] [address] [id number] [place] [id number] November, [facility] [address] [id number] [address] [place] [address], [place] [address] November, [facility] [address] [id number] [address] [place] [address], [place] [address] Oct, [facility] [place] [address] [id number] [place] [id number] Oct, [facility] [place] [address] [id number] [place] [id number] Oct, [facility] [address] [id number] [address] [place] [address], [place] [address] Oct, [facility] [place] [address] [id number] [place] [id number] Oct, [facility] [address] [id number] [address] [place] [address], [place] [address] Oct, [facility] [place] [address] [id number] [place] [id number] Oct, [facility] [address] [id number] [address] [place] [address], [place] [address] Oct, [facility] [address] [id number] [address] [place] [address], [place] [address] Oct, [facility] [place] [address] [id number] [place] [id number] Oct, [facility] [address] [id number] [facility] [place] [place] [address] Oct, [facility] [place] [address] [id number] [place] [id number] Oct, [facility] [place] [address] [id number] [place] [id number] Sep, [facility] [address] [id number] [address] [place] [address], [place] [address] Sep, [facility] [address] [id number] [address] [place] [address], [place] [address] Sep, [facility] [place] [address] [id number] [place] [id number] Sep, [facility] [place] [address] [id number] [place] [id number] Sep, [facility] [address] [id number] [address] [place] [address], [place] [address] Sep, [facility] [place] [address] [id number] [place] [id number] Aug, [facility] [address] [id number] [address] [place] [address], [place] [address] Aug, [facility] [place] [address] [id number] [place] [id number] Aug, [facility] [address] [id number] [address] [place] [address], [place] [address] Aug, [facility] [address] [id number] [address] [place] [address], [place] [address] Aug, [facility] [address] [id number] [address] [place] [address], [place] [address] Aug, [facility] [place] [address] [id number] [place] [id number] Jul, [facility] [address] [facility] [id number] [address] [place] [address], [place] [address] Jul, [facility] [place] [address] [id number] [place] [id number] Jun, [facility] [address] [id number] [address] [place] [address], [place] [address] Jun, [facility] [place] [address] [id number] [place] [id number] May, [facility] [address] [id number] [address] [place] [address], [place] [address] May, [facility] [place] [address] [id number] [place] [id number] Apr, [facility] [address] [id number] [address] [place] [address], [place] [address] Apr, [facility] [place] [address] [id number] [place] [id number] Mar, [facility] [address] [facility] [id number] [address] [place] [address], [place] [address] Feb, [facility] [place] [address] [id number] [place] [id number] Feb, [facility] [place] [address] [id number] [place] [id number] Feb, [facility] [place] [address] [id number] [place] [id number] Feb, [facility] [address] [id number] [address] [place] [address], [place] [address] Jan, [facility] [place] [address] [id number] [place] [id number] Jan, [facility] [place] [address] [id number] [place] [id number] Jan, [facility] [address] [id number] [address] [place] [address], [place] [address] Jan, [facility] [place] [address] [id number] [place] [id number] November, [facility] [place] [address] [id number] [place] [id number] November, [facility] [address] [id number] [address] [place] [address] November, [facility] [place] [address] [id number] [place] [id number] November, [facility] [place] [address] [id number] [place] [id number] Oct, [facility] [place] [address] [id number] [place] [id number] Oct, [facility] [place] [address] [id number] [place] [id number] Sep, [facility] [place] [address] [id number] [place] [id number] Sep, [facility] [place] [address] [id number] [place] [id number] Aug, [facility] [place] [address] [id number] [place] [id number] Jul, [facility] [place] [address] [id number] [place] [id number] Jun, [facility] [address] [facility] [id number] [address] [place] [id number] Jun, [facility] [address] [facility] [id number] [address] [place] [id number] May, [facility] [address] [facility] [id number] [address] [place] [address] May, [facility] [place] [address] [id number] [place] [id number] May, [facility] [place] [address] [id number] [place] [id number] May, [facility] [address] [facility] [id number] [address] [place] [id number] May, [facility] [address] [facility] [id number] [address] [place] [id number] May, [facility] [place] [address] [id number] [place] [id number] May, [facility] [address] [facility] [id number] [address] [place] [id number] 14 May, 2012 [facility] [place] [address] [id number] [place] [id number] May, [facility] [address] [facility] [id number] [address] [place] [address] May, [facility] [place] [address] [id number] [place] [id number] May, [facility] [address] [id number] [address] [place] [address] May, [facility] [place] [address] [id number] [place] [id number] May, [facility] [address] [facility] [id number] [address] [place] [id number] May, [facility] [address] [facility] [id number] [address] [place] [id number] Apr, [facility] [address] [facility] [id number] [address] [place] [id number] Apr, [facility] [address] [facility] [id number] [address] [place] [id number] Apr, [facility] [address] [facility] [id number] [address] [place] [id number] Apr, [facility] [place] [address] [id number] [place] [id number] Apr, [facility] [address] [facility] [id number] [address] [place] [address] Apr, [facility] [place] [address] [id number] [place] [id number] Apr, [facility] [place] [address] [id number] [place] [id number] Mar, [facility] [place] [address] [id number] [place] [id number] Mar, [facility] [place] [address] [id number] [place] [id number] Feb, [facility] [place] [address] [id number] [place] [id number] Jan, [facility] [place] [address] [id number] [place] [id number] Dec, [facility] [place] [address] [id number] [place] [id number] Dec, [facility] [place] [address] [id number] [place] [id number] November, [facility] [place] [address] [id number] [place] [id number] November, [facility] [place] [address] [id number] [place] [id number] November, [facility] [address] [id number] [address] [place] [address] November, [facility] [place] [address] [id number] [place] [id number] November, [facility] [place] [address] [id number] [place] [id number] November, [facility] [place] [address] [id number] [place] [id number] November, [facility] [place] [address] [id number] [place] [id number] Oct, [facility] [place] [address] [id number] [place] [id number] Oct, [facility] [place] [address] [id number] [place] [id number] Oct, [facility] [place] [address] [id number] [place] [id number] Oct, [facility] [place] [address] [id number] [place] [id number] Oct, [facility] [address] [id number] [address] [address] Oct, [facility] [place] [address] [id number] [place] [id number] Oct, [facility] [place] [address] [id number] [place] [id number] Oct, [facility] [place] [address] [id number] [place] [id number] Sep, [facility] [place] [address] [id number] [place] [id number] Aug, [facility] [place] [address] [id number] [place] [id number] Aug, [facility] [place] [address] [id number] [place] [id number] Jul, [facility] [place] [address] [id number] [place] [id number] Jul, [facility] [address] [id number] [address] [place] [id number] Jul, [facility] [place] [address] [id number] [place] [id number] Jul, [facility] [address] [facility] [id number] [address] [place] [id number] Jun, [facility] [address] [id number] [address] [place] [id number] Jun, [facility] [address] [facility] [id number] [address] [place] [id number] May, [facility] [address] [facility] [id number] [address] [place] [id number] Apr, [facility] [address] [facility] [id number] [address] [place] [id number] Apr, [facility] [address] [facility] [id number] [address] [place] [id number] Jan, [facility] [address] [facility] [id number] [address] [place] [id number] Dec, [facility] [address] [facility] [id number] [address] [place] [id number] Aug, [facility] [address] [facility] [id number] [address] [place] [id number] Jun, [facility] [address] [id number] [address] [place] [id number] Jun, [facility] [address] [id number] [address] [place] [id number] Jun, [facility] [address] [id number] [address] [place] [id number] Jun, [facility] [address] [id number] [address] [place] [id number] Jun, [facility] [address] [id number] [address] [place] [id number] May, [facility] [address] [id number] [address] [place] [id number] May, [facility] [address] [id number] [address] [place] [id number] May, [facility] [address] [id number] [address] [place] [id number] Apr, [facility] [address] [id number] [address] [place] [id number] Apr, [facility] [address] [id number] [address] [place] [id number] Apr, [facility] [address] [id number] [address] [place] [id number] Apr, [facility] [address] [id number] [address] [place] [id number] Mar, [facility] [address] [id number] [address] [place] [id number] Jun, [facility] [address] [id number] [address] [place] [id number] Jun, [facility] [address] [id number] [address] [place] [id number] Jun, IMMUNIZATIONS No Known Immunizations SOCIAL HISTORY [...]
--- OUTSIDE RECORDS SUMMARY | 2020-01-13 17:55 | XMS REPORT ---
Author Author Elba Ina [facility] Organization [facility] Address [address], [place] [id number] Care Team Providers Care Public Health Officer Name Role Phone Elba [facility] Unavailable PROBLEMS Type Condition ICD9-CM Code GNA04-BW Code Onset Dates Condition S tatus SNOMED Code Problem ETOH abuse F10.10 Active [id number] Problem Mild episode of recurrent major depressive disorder F33.0 Active [id number] ALLERGIES No Information ENCOUNTERS Encounter Location Date Diagnosis [facility] [address] [id number] [address] [place] [address] November, [facility] [address] [address] November, Injury of left knee, subsequ ent encounter S89.92XD and Injury of left ankle, subsequent encounter S99.912D [facility] [address] [address] May, [facility] [address] [id number] [address] [place] [address] May, Mild episode of recurrent ma shawna depressive disorder F33.0 ; Elevated blood pressure reading R03.0 ; Screening for hyperlipidemia Z13.220 ; Screening for thyroid disorder Z13.29 ; Screening for diabetes mellitus Z13.1 and History of seizures Z87.898 [facility] [address] [id number] [id number] Jul, [facility] [address] [id number] [address] [place] [address] Oct, [facility] [address] [id number] [address] [place] [address] Oct, [facility] [address] [id number] [id number] Sep, [facility] [address] [id number] [address] [place] [address], [place] [address] Sep, [facility] [address] [id number] [address] [place] [address], [place] [address] Aug, [facility] [place] [address] [id number] [place] [id number] Aug, [facility] [address] [id number] [address] [place] [address], [place] [address] Aug, [facility] [address] [id number] [address] [place] [address], [place] [address] Aug, [facility] [place] [address] [id number] [place] [id number] Aug, [facility] [address] [id number] [address] [place] [address], [place] [address] Aug, [facility] [address] [id number] [address] [place] [address], [place] [address] Aug, [facility] [place] [address] [id number] [place] [id number] Jul, [facility] [address] [id number] [address] [place] [address], [place] [address] Jul, [facility] [address] [id number] [address] [place] [address], [place] [address] Jul, [facility] [address] [id number] [address] [place] [address], [place] [address] Jul, [facility] [place] [address] [id number] [place] [id number] Jul, [facility] [address] [id number] [address] [place] [address], [place] [address] Jul, [facility] [address] [id number] [address] [place] [address], [place] [address] Jun, [facility] [address] [id number] [address] [place] [address], [place] [address] Jun, [facility] [place] [address] [id number] [place] [id number] Jun, [facility] [address] [id number] [facility] [place] [address] Jun, [facility] [address] [id number] [place] [id number] Jun, [facility] [address] [id number] [address] [place] [address], [place] [address] Jun, [facility] [address] [id number] [address] [place] [address], [place] [address] Jun, [facility] [address] [id number] [address] [place] [address], [place] [address] May, [facility] [address] [id number] [address] [place] [address], [place] [address] May, [facility] [address] [id number] [place] [id number] May, [facility] [address] [id number] [address] [place] [address], [place] [address] May, [facility] [address] [id number] [address] [place] [address], [place] [address] Apr, [facility] [address] [id number] [address] [place] [address], [place] [address] Apr, [facility] [place] [address] [id number] [place] [id number] Apr, [facility] [address] [id number] [address] [place] [address], [place] [address] Apr, [facility] [address] [id number] [address] [place] [address], [place] [address] Mar, [facility] [address] [id number] [address] [place] [address], [place] [address] Mar, [facility] [address] [id number] [facility] [place] [address] Mar, [facility] [address] [id number] [facility] [place] [address] Mar, [facility] [place] [address] [id number] [place] [id number] Mar, [facility] [address] [id number] [facility] [place] [address] Mar, [facility] [address] [id number] [place] [id number] Mar, [facility] [address] [id number] [address] [place] [address], [place] [address] Mar, [facility] [address] [id number] [address] [place] [address], [place] [address] Feb, [facility] [address] [id number] [address] [place] [address], [place] [address] Feb, [facility] [address] [id number] [address] [place] [address], [place] [address] Feb, [facility] [address] [id number] [address] [place] [address], [place] [address] Feb, [facility] [address] [id number] [address] [place] [address], [place] [address] Feb, [facility] [address] [id number] [address] [place] [address], [place] [address] Feb, [facility] [address] [id number] [place] [id number] Feb, [facility] [address] [id number] [address] [place] [address], [place] [address] Feb, [facility] [address] [id number] [address] [place] [address], [place] [address] Jan, [facility] [address] [id number] [facility] [place] [address] Jan, [facility] [address] [id number] [place] [id number] Jan, [facility] [address] [id number] [address] [place] [address], [place] [address] Jan, [facility] [address] [id number] [address] [place] [address], [place] [address] Dec, [facility] [place] [address] [id number] [place] [id number] Dec, [facility] [place] [address] [id number] [place] [id number] November, [facility] [address] [id number] [address] [place] [address], [place] [address] November, [facility] [place] [address] [id number] [place] [id number] November, [facility] [address] [id number] [address] [place] [address], [place] [address] November, [facility] [address] [id number] [address] [place] [address], [place] [address] Oct, [facility] [place] [address] [id number] [place] [id number] Oct, [facility] [place] [address] [id number] [place] [id number] Oct, [facility] [address] [id number] [address] [place] [address], [place] [address] Oct, [facility] [place] [address] [id number] [place] [id number] Oct, [facility] [address] [id number] [address] [place] [address], [place] [address] Oct, [facility] [place] [address] [id number] [place] [id number] Oct, [facility] [address] [id number] [address] [place] [address], [place] [address] Oct, [facility] [address] [id number] [address] [place] [address], [place] [address] Oct, [facility] [place] [address] [id number] [place] [id number] Oct, [facility] [address] [id number] [address] [place] [address], [place] [address] Oct, [facility] [place] [address] [id number] [place] [id number] Oct, [facility] [place] [address] [id number] [place] [id number] Sep, [facility] [address] [id number] [address] [place] [address], [place] [address] Sep, [facility] [address] [id number] [address] [place] [address], [place] [address] Sep, [facility] [place] [address] [id number] [place] [id number] Sep, [facility] [place] [address] [id number] [place] [id number] Sep, [facility] [address] [facility] [id number] [address] [place] [address] Sep, [facility] [place] [address] [id number] [place] [id number] Aug, [facility] [address] [facility] [id number] [address] [place] [address] Aug, [facility] [place] [address] [id number] [place] [id number] Aug, [facility] [address] [id number] [address] [place] [address] Aug, [facility] [address] [facility] [id number] [address] [place] [address] Aug, [facility] [address] [facility] [id number] [address] [place] [address] Aug, [facility] [place] [address] [id number] [place] [id number] Jul, [facility] [address] [id number] [address] [place] [address] Jul, [facility] [place] [address] [id number] [place] [id number] Jun, [facility] [address] [facility] [id number] [address] [place] [address] Jun, [facility] [place] [address] [id number] [place] [id number] May, [facility] [address] [facility] [id number] [address] [place] [address] May, [facility] [place] [address] [id number] [place] [id number] Apr, [facility] [address] [id number] [address] [place] [address] Apr, [facility] [place] [address] [id number] [place] [id number] Mar, [facility] [address] [facility] [id number] [address] [place] [address] Feb, [facility] [place] [address] [id number] [place] [id number] Feb, [facility] [place] [address] [id number] [place] [id number] Feb, [facility] [place] [address] [id number] [place] [id number] Feb, [facility] [address] [id number] [address] [place] [id number] Jan, [facility] [place] [address] [id number] [place] [id number] Jan, [facility] [place] [address] [id number] [place] [id number] Jan, [facility] [address] [facility] [id number] [address] [place] [id number] Jan, [facility] [place] [address] [id number] [place] [id number] November, [facility] [place] [address] [id number] [place] [id number] November, [facility] [address] [id number] [address] [place] [address] November, [facility] [place] [address] [id number] [place] [id number] November, [facility] [place] [address] [id number] [place] [id number] Oct, [facility] [place] [address] [id number] [place] [id number] Oct, [facility] [place] [address] [id number] [place] [id number] Sep, [facility] [place] [address] [id number] [place] [id number] Sep, [facility] [place] [address] [id number] [place] [id number] Aug, [facility] [place] [address] [id number] [place] [id number] Jul, [facility] [place] [address] [id number] [place] [id number] Jun, [facility] [address] [facility] [id number] [address] [place] [id number] Jun, [facility] [address] [facility] [id number] [address] [place] [address] May, [facility] [address] [facility] [id number] [address] [place] [address] May, [facility] [place] [address] [id number] [place] [id number] May, [facility] [place] [address] [id number] [place] [id number] May, [facility] [address] [facility] [id number] [address] [place] [address] May, [facility] [address] [facility] [id number] [address] [place] [address] May, [facility] [place] [address] [id number] [place] [id number] May, [facility] [address] [id number] [address] [place] [address] May, [facility] [place] [address] [id number] [place] [id number] May, [facility] [address] [id number] [address] [place] [address], [place] [address] May, [facility] [place] [address] [id number] [place] [id number] May, [facility] [address] [id number] [address] [place] [address] May, [facility] [place] [address] [id number] [place] [id number] May, [facility] [address] [facility] [id number] [address] [place] [id number] May, [facility] [address] [facility] [id number] [address] [place] [address] Apr, [facility] [address] [facility] [id number] [address] [place] [address] Apr, [facility] [address] [facility] [id number] [address] [place] [id number] Apr, [facility] [address] [facility] [id number] [address] [place] [address] Apr, [facility] [place] [address] [id number] [place] [id number] Apr, [facility] [address] [id number] [address] [place] [address] Apr, [facility] [place] [address] [id number] [place] [id number] Apr, [facility] [place] [address] [id number] [place] [id number] Mar, [facility] [place] [address] [id number] [place] [id number] Mar, [facility] [place] [address] [id number] [place] [id number] Feb, [facility] [place] [address] [id number] [place] [id number] Jan, [facility] [place] [address] [id number] [place] [id number] Dec, [facility] [place] [address] [id number] [place] [id number] Dec, [facility] [place] [address] [id number] [place] [id number] November, [facility] [place] [address] [id number] [place] [id number] November, [facility] [place] [address] [id number] [place] [id number] November, [facility] [address] [facility] [id number] [address] [place] [address] November, [facility] [place] [address] [id number] [place] [id number] November, [facility] [place] [address] [id number] [place] [id number] November, [facility] [place] [address] [id number] [place] [id number] November, [facility] [place] [address] [id number] [place] [id number] Oct, [facility] [place] [address] [id number] [place] [id number] Oct, [facility] [place] [address] [id number] [place] [id number] Oct, [facility] [place] [address] [id number] [place] [id number] Oct, [facility] [place] [address] [id number] [place] [id number] Oct, [facility] [address] [facility] [id number] [address] [address] Oct, [facility] [place] [address] [id number] [place] [id number] Oct, [facility] [place] [address] [id number] [place] [id number] Oct, [facility] [place] [address] [id number] [place] [id number] Sep, [facility] [place] [address] [id number] [place] [id number] Aug, [facility] [place] [address] [id number] [place] [id number] Aug, [facility] [place] [address] [id number] [place] [id number] Jul, [facility] [place] [address] [id number] [place] [id number] Jul, [facility] [address] [facility] [id number] [address] [place] [id number] Jul, [facility] [place] [address] [id number] [place] [id number] Jul, [facility] [address] [facility] [id number] [address] [place] [id number] Jun, [facility] [address] [facility] [id number] [address] [place] [id number] Jun, [facility] [address] [facility] [id number] [address] [place] [id number] May, [facility] [address] [facility] [id number] [address] [place] [id number] Apr, [facility] [address] [facility] [id number] [address] [place] [id number] Apr, [facility] [address] [facility] [id number] [address] [place] [id number] Jan, [facility] [address] [facility] [id number] [address] [place] [id number] Dec, [facility] [address] [facility] [id number] [address] [place] [id number] Aug, [facility] [address] [id number] [address] [place] [address], [place] [id number] 23 Jun, 2010 [facility] [address] [id number] [address] [place] [address], [place] [id number] Jun, [facility] [address] [id number] [address] [place] [address], [place] [id number] Jun, [facility] [address] [id number] [address] [place] [address], [place] [id number] Jun, [facility] [address] [id number] [address] [place] [address], [place] [id number] Jun, [facility] [address] [id number] [address] [place] [address], [place] [id number] 15 May, 2010 [facility] [address] [id number] [address] [place] [address], [place] [id number] May, [facility] [address] [id number] [address] [place] [id number] May, [facility] [address] [id number] [address] [place] [address], [place] [id number] Apr, [facility] [address] [id number] [address] [place] [id number] Apr, [facility] [address] [id number] [address] [place] [id number] Apr, [facility] [address] [id number] [address] [place] [id number] Apr, [facility] [address] [id number] [address] [place] [id number] 10 Mar, 2010 [facility] [address] [id number] [address] [place] [id number] 17 Jun, 2009 [facility] [address] [id number] [address] [place] [id number] 14 Jun, 2009 [facility] [address] [id number] [address] [place] [id number] Jun, IMMUNIZATIONS No Known Immunizations SOCIAL HISTORY [...]
--- OUTSIDE RECORDS SUMMARY | 2020-01-13 17:55 | XMS REPORT ---
Author Author Ina DEJESUS [facility] Address [address] [place] [address] Care Team Providers Care Equipment Sales Specialist Name Role Phone SANDY DEJESUS Unavailable PROBLEMS Type Condition ICD9-CM Code VJV15-DW Code Onset Dates Condition S tatus SNOMED Code Problem ETOH abuse F10.10 Active 57023695 Problem Mild episode of recurrent major depressive disorder F33.0 Active [id number] ALLERGIES No Information ENCOUNTERS Encounter Location Date Diagnosis [facility] [address] [id number] [address] [place] [address] November, [facility] [address] [id number] [address] [place] [address] November, Injury of left knee, subsequ ent encounter S89.92XD and Injury of left ankle, subsequent encounter S99.912D [facility] [address] [id number] [address] [place] [address] May, [facility] [address] [id number] [address] [place] [address] May, Mild episode of recurrent ma shawna depressive disorder F33.0 ; Elevated blood pressure reading R03.0 ; Screening for hyperlipidemia Z13.220 ; Screening for thyroid disorder Z13.29 ; Screening for diabetes mellitus Z13.1 and History of seizures Z87.898 [facility] [address] [facility] [id number] [place] [id number] Jul, [facility] [address] [facility] [id number] [address] [place] [address] Oct, [facility] [address] [facility] [id number] [address] [place] [address] Oct, [facility] [address] [facility] [id number] [place] [id number] Sep, [facility] [address] [id number] [address] [place] [address], [place] [address] Sep, [facility] [address] [id number] [address] [place] [address], [place] [address] Aug, [facility] [place] [address] [id number] [place] [id number] Aug, [facility] [address] [id number] [address] [place] [address], [place] [address] Aug, [facility] [address] [id number] [address] [place] [address], [place] [address] Aug, [facility] [place] [address] [id number] [place] [id number] Aug, [facility] [address] [id number] [address] [place] [address] Aug, [facility] [address] [id number] [address] [place] [address] Aug, [facility] [place] [address] [id number] [place] [id number] Jul, [facility] [address] [id number] [address] [place] [address] Jul, [facility] [address] [id number] [address] [place] [address] Jul, [facility] [address] [id number] [address] [place] [address] Jul, [facility] [place] [address] [id number] [place] [id number] Jul, [facility] [address] [id number] [address] [place] [address] Jul, [facility] [address] [id number] [address] [place] [address] Jun, [facility] [address] [id number] [address] [place] [address] Jun, [facility] [place] [address] [id number] [place] [id number] Jun, [facility] [address] [id number] [address] [place] [address], [place] [address] Jun, [facility] [place] [address] [id number] [place] [id number] Jun, [facility] [address] [id number] [address] [place] [address], [place] [address] Jun, [facility] [address] [id number] [address] [place] [address], [place] [address] Jun, [facility] [address] [id number] [address] [place] [address], [place] [address] May, [facility] [address] [id number] [address] [place] [address], [place] [address] May, [facility] [place] [address] [id number] [place] [id number] May, [facility] [address] [id number] [address] [place] [address], [place] [address] May, [facility] [address] [id number] [address] [place] [address], [place] [address] Apr, [facility] [address] [id number] [address] [place] [address], [place] [address] Apr, [facility] [place] [address] [id number] [place] [id number] Apr, [facility] [address] [id number] [address] [place] [address], [place] [address] Apr, [facility] [address] [id number] [address] [place] [address], [place] [address] Mar, [facility] [address] [id number] [address] [place] [address], [place] [address] Mar, [facility] [address] [id number] [address] [place] [address], [place] [address] Mar, [facility] [address] [id number] [facility] [place] [address] Mar, [facility] [place] [address] [id number] [place] [id number] Mar, [facility] [address] [id number] [facility] [place] [address] Mar, [facility] [place] [address] [id number] [place] [id number] Mar, [facility] [address] [id number] [facility] [place] [address] Mar, [facility] [address] [id number] [address] [place] [address], [place] [address] Feb, [facility] [address] [id number] [address] [place] [address], [place] [address] Feb, [facility] [address] [id number] [address] [place] [address], [place] [address] Feb, [facility] [address] [id number] [address] [place] [address], [place] [address] Feb, [facility] [address] [id number] [address] [place] [address], [place] [address] Feb, [facility] [address] [id number] [address] [place] [address], [place] [address] Feb, [facility] [place] [address] [id number] [place] [id number] Feb, [facility] [address] [id number] [address] [place] [address], [place] [address] Feb, [facility] [address] [id number] [address] [place] [address], [place] [address] Jan, [facility] [address] [id number] [facility] [place] [address] Jan, [facility] [place] [address] [id number] [place] [id number] Jan, [facility] [address] [id number] [address] [place] [address], [place] [address] Jan, [facility] [address] [id number] [address] [place] [address], [place] [address] Dec, [facility] [place] [address] [id number] [place] [id number] Dec, [facility] [place] [address] [id number] [place] [id number] November, [facility] [address] [id number] [address] [place] [address], [place] [address] November, [facility] [place] [address] [id number] [place] [id number] November, [facility] [address] [id number] [address] [place] [address], [place] [address] November, [facility] [address] [id number] [address] [place] [address], [place] [address] Oct, [facility] [place] [address] [id number] [place] [id number] Oct, [facility] [place] [address] [id number] [place] [id number] Oct, [facility] [address] [id number] [address] [place] [address], [place] [address] Oct, [facility] [place] [address] [id number] [place] [id number] Oct, [facility] [address] [id number] [address] [place] [address], [place] [address] Oct, [facility] [place] [address] [id number] [place] [id number] Oct, [facility] [address] [id number] [address] [place] [address], [place] [address] Oct, [facility] [address] [id number] [address] [place] [address], [place] [address] Oct, [facility] [place] [address] [id number] [place] [id number] Oct, [facility] [address] [id number] [address] [place] [address], [place] [address] Oct, [facility] [place] [address] [id number] [place] [id number] Oct, [facility] [place] [address] [id number] [place] [id number] Sep, [facility] [address] [id number] [address] [place] [address], [place] [address] Sep, [facility] [address] [id number] [address] [place] [address], [place] [address] Sep, [facility] [place] [address] [id number] [place] [id number] Sep, [facility] [place] [address] [id number] [place] [id number] Sep, [facility] [address] [id number] [address] [place] [address] Sep, [facility] [place] [address] [id number] [place] [id number] Aug, [facility] [address] [facility] [id number] [address] [place] [address] Aug, [facility] [place] [address] [id number] [place] [id number] Aug, [facility] [address] [id number] [address] [place] [address] Aug, [facility] [address] [facility] [id number] [address] [place] [address], [place] [address] Aug, [facility] [address] [facility] [id number] [address] [place] [address] Aug, [facility] [place] [address] [id number] [place] [id number] Jul, [facility] [address] [facility] [id number] [address] [place] [address] Jul, [facility] [place] [address] [id number] [place] [id number] Jun, [facility] [address] [id number] [address] [place] [address] Jun, [facility] [place] [address] [id number] [place] [id number] May, [facility] [address] [id number] [address] [place] [address] May, [facility] [place] [address] [id number] [place] [id number] Apr, [facility] [address] [id number] [address] [place] [address], [place] [address] Apr, [facility] [place] [address] [id number] [place] [id number] Mar, [facility] [address] [id number] [address] [place] [address] Feb, [facility] [place] [address] [id number] [place] [id number] Feb, [facility] [place] [address] [id number] [place] [id number] Feb, [facility] [place] [address] [id number] [place] [id number] Feb, [facility] [address] [id number] [address] [place] [address] Jan, [facility] [place] [address] [id number] [place] [id number] Jan, [facility] [place] [address] [id number] [place] [id number] Jan, [facility] [address] [id number] [address] [place] [address] Jan, [facility] [place] [address] [id number] [place] [id number] November, [facility] [place] [address] [id number] [place] [id number] November, [facility] [address] [id number] [address] [place] [address] November, [facility] [place] [address] [id number] [place] [id number] November, [facility] [place] [address] [id number] [place] [id number] Oct, [facility] [place] [address] [id number] [place] [id number] Oct, [facility] [place] [address] [id number] [place] [id number] Sep, [facility] [place] [address] [id number] [place] [id number] Sep, [facility] [place] [address] [id number] [place] [id number] Aug, [facility] [place] [address] [id number] [place] [id number] Jul, [facility] [place] [address] [id number] [place] [id number] Jun, [facility] [address] [facility] [id number] [address] [place] [address] Jun, [facility] [address] [facility] [id number] [address] [place] [address] May, [facility] [address] [facility] [id number] [address] [place] [address] May, [facility] [place] [address] [id number] [place] [id number] May, [facility] [place] [address] [id number] [place] [id number] May, [facility] [address] [facility] [id number] [address] [place] [address] May, [facility] [address] [facility] [id number] [address] [place] [address] May, [facility] [place] [address] [id number] [place] [id number] May, [facility] [address] [id number] [address] [place] [address], [place] [address] 14 May, 2012 [facility] [place] [address] [id number] [place] [id number] May, [facility] [address] [id number] [address] [place] [address] May, [facility] [place] [address] [id number] [place] [id number] May, [facility] [address] [id number] [address] [place] [address] May, [facility] [place] [address] [id number] [place] [id number] May, [facility] [address] [id number] [address] [place] [address] May, [facility] [address] [id number] [address] [place] [address] Apr, [facility] [address] [id number] [address] [place] [address] Apr, [facility] [address] [facility] [id number] [address] [place] [address] Apr, [facility] [address] [facility] [id number] [address] [place] [address] Apr, [facility] [place] [address] [id number] [place] [id number] Apr, [facility] [address] [id number] [address] [place] [address] Apr, [facility] [place] [address] [id number] [place] [id number] Apr, [facility] [place] [address] [id number] [place] [id number] Mar, [facility] [place] [address] [id number] [place] [id number] Mar, [facility] [place] [address] [id number] [place] [id number] Feb, [facility] [place] [address] [id number] [place] [id number] Jan, [facility] [place] [address] [id number] [place] [id number] Dec, [facility] [place] [address] [id number] [place] [id number] Dec, [facility] [place] [address] [id number] [place] [id number] November, [facility] [place] [address] [id number] [place] [id number] November, [facility] [place] [address] [id number] [place] [id number] November, [facility] [address] [facility] [id number] [address] [place] [address] November, [facility] [place] [address] [id number] [place] [id number] November, [facility] [place] [address] [id number] [place] [id number] November, [facility] [place] [address] [id number] [place] [id number] November, [facility] [place] [address] [id number] [place] [id number] Oct, [facility] [place] [address] [id number] [place] [id number] Oct, [facility] [place] [address] [id number] [place] [id number] Oct, [facility] [place] [address] [id number] [place] [id number] Oct, [facility] [place] [address] [id number] [place] [id number] Oct, [facility] [address] [facility] [id number] [address] [place] [address] Oct, [facility] [place] [address] [id number] [place] [id number] Oct, [facility] [place] [address] [id number] [place] [id number] Oct, [facility] [place] [address] [id number] [place] [id number] Sep, [facility] [place] [address] [id number] [place] [id number] Aug, [facility] [place] [address] [id number] [place] [id number] Aug, [facility] [place] [address] [id number] [place] [id number] Jul, [facility] [place] [address] [id number] [place] [id number] Jul, [facility] [address] [facility] [id number] [address] [place] [address] Jul, [facility] [place] [address] [id number] [place] [id number] Jul, [facility] [address] [facility] [id number] [address] [place] [address] Jun, [facility] [address] [facility] [id number] [address] [place] [address] Jun, [facility] [address] [facility] [id number] [address] [place] [address] May, [facility] [address] [facility] [id number] [address] [place] [address] Apr, [facility] [address] [facility] [id number] [address] [place] [address] Apr, [facility] [address] [facility] [id number] [address] [place] [address] Jan, [facility] [address] [facility] [id number] [address] [place] [address] Dec, [facility] [address] [facility] [id number] [address] [place] [address] Aug, [facility] [address] [id number] [address] [place] [address], [place] [address] 23 Jun, 2010 [facility] [address] [id number] [address] [place] [address], [place] [address] Jun, [facility] [address] [id number] [address] [place] [address], [place] [address] Jun, [facility] [address] [id number] [address] [place] [address], [place] [address] Jun, [facility] [address] [id number] [address] [place] [address], [place] [address] Jun, [facility] [address] [id number] [address] [place] [address], [place] [address] 15 May, 2010 [facility] [address] [id number] [address] [place] [address], [place] [address] 05 May, 2010 [facility] [address] [id number] [address] [place] [address], [place] [address] May, [facility] [address] [id number] [address] [place] [address], [place] [address] 18 Apr, 2010 [facility] [address] [id number] [address] [place] [address], [place] [address] Apr, [facility] [address] [id number] [address] [place] [address], [place] [address] Apr, [facility] [address] [id number] [address] [place] [address], [place] [address] 11 Apr, 2010 [facility] [address] [id number] [address] [place] [address], [place] [address] 10 Mar, 2010 [facility] [address] [id number] [address] [place] [address], [place] [address] 17 Jun, 2009 [facility] [address] [id number] [address] [place] [address], [place] [address] 14 Jun, 2009 [facility] [address] [id number] [address] [place] [address], [place] [address] Jun, IMMUNIZATIONS No Known Immunizations SOCIAL HISTORY [...]
--- OUTSIDE RECORDS SUMMARY | 2020-01-13 17:55 | XMS REPORT ---
Author Author Ina DEJESUS [facility] Address [address] [place] [address] Care Team Providers Care Skid Worker Name Role Phone SANDY DEJESUS Unavailable PROBLEMS Type Condition ICD9-CM Code HBF92-LZ Code Onset Dates Condition S tatus SNOMED Code Problem ETOH abuse F10.10 Active 46025932 Problem Mild episode of recurrent major depressive disorder F33.0 Active [id number] ALLERGIES No Information ENCOUNTERS Encounter Location Date Diagnosis [facility] [address] [id number] [address] [place] [address] November, [facility] [address] [id number] [address] [place] [id number] November, Injury of left knee, subsequ ent encounter S89.92XD and Injury of left ankle, subsequent encounter S99.912D [facility] [address] [id number] [address] [place] [address] May, [facility] [address] [id number] [address] [place] [address] May, Mild episode of recurrent ma shawna depressive disorder F33.0 ; Elevated blood pressure reading R03.0 ; Screening for hyperlipidemia Z13.220 ; Screening for thyroid disorder Z13.29 ; Screening for diabetes mellitus Z13.1 and History of seizures Z87.898 [facility] [address] [facility] [id number] [place] [id number] Jul, [facility] [address] [facility] [id number] [address] [place] [address] Oct, [facility] [address] [facility] [id number] [address] [place] [phone] Oct, [facility] [address] [facility] [id number] [place] [id number] Sep, [facility] [address] [id number] [address] [place] [address], [place] [address] Sep, [facility] [address] [id number] [address] [place] [address], [place] [address] Aug, [facility] [place] [address] [id number] [place] [id number] Aug, [facility] [address] [id number] [address] [place] [address], [place] [address] Aug, [facility] [address] [id number] [address] [place] [address], [place] [address] Aug, [facility] [place] [address] [id number] [place] [id number] Aug, [facility] [address] [id number] [address] [place] [address] Aug, [facility] [address] [id number] [address] [place] [id number] Aug, [facility] [place] [address] [id number] [place] [id number] Jul, [facility] [address] [id number] [address] [place] [address] Jul, [facility] [address] [id number] [address] [place] [id number] Jul, [facility] [address] [id number] [address] [place] [address] Jul, [facility] [place] [address] [id number] [place] [id number] Jul, [facility] [address] [id number] [address] [place] [address] Jul, [facility] [address] [id number] [address] [place] [address] Jun, [facility] [address] [id number] [address] [place] [address] Jun, [facility] [place] [address] [id number] [place] [id number] Jun, [facility] [address] [id number] [address] [place] [address], [place] [address] Jun, [facility] [place] [address] [id number] [place] [id number] Jun, [facility] [address] [id number] [address] [place] [address], [place] [address] Jun, [facility] [address] [id number] [address] [place] [address], [place] [address] Jun, [facility] [address] [id number] [address] [place] [address], [place] [address] May, [facility] [address] [id number] [address] [place] [address], [place] [address] May, [facility] [place] [address] [id number] [place] [id number] May, [facility] [address] [id number] [address] [place] [address], [place] [address] May, [facility] [address] [id number] [address] [place] [address], [place] [address] Apr, [facility] [address] [id number] [address] [place] [address], [place] [address] Apr, [facility] [place] [address] [id number] [place] [id number] Apr, [facility] [address] [id number] [address] [place] [address], [place] [address] Apr, [facility] [address] [id number] [address] [place] [address], [place] [address] Mar, [facility] [address] [id number] [address] [place] [address], [place] [address] Mar, [facility] [address] [id number] [address] [place] [address], [place] [address] Mar, [facility] [address] [id number] [facility] [place] [address] Mar, [facility] [place] [address] [id number] [place] [id number] Mar, [facility] [address] [id number] [facility] [place] [address] Mar, [facility] [place] [address] [id number] [place] [id number] Mar, [facility] [address] [id number] [facility] [place] [address] Mar, [facility] [address] [id number] [address] [place] [address], [place] [address] Feb, [facility] [address] [id number] [address] [place] [address], [place] [address] Feb, [facility] [address] [id number] [address] [place] [address], [place] [address] Feb, [facility] [address] [id number] [address] [place] [address], [place] [address] Feb, [facility] [address] [id number] [address] [place] [address], [place] [address] Feb, [facility] [address] [id number] [address] [place] [address], [place] [address] Feb, [facility] [place] [address] [id number] [place] [id number] Feb, [facility] [address] [id number] [address] [place] [address], [place] [address] Feb, [facility] [address] [id number] [address] [place] [address], [place] [address] Jan, [facility] [address] [id number] [facility] [place] [address] Jan, [facility] [place] [address] [id number] [place] [id number] Jan, [facility] [address] [id number] [address] [place] [address], [place] [address] Jan, [facility] [address] [id number] [address] [place] [address], [place] [address] Dec, [facility] [place] [address] [id number] [place] [id number] Dec, [facility] [place] [address] [id number] [place] [id number] November, [facility] [address] [id number] [address] [place] [address], [place] [address] November, [facility] [place] [address] [id number] [place] [id number] November, [facility] [address] [id number] [address] [place] [address], [place] [address] November, [facility] [address] [id number] [address] [place] [address], [place] [address] Oct, [facility] [place] [address] [id number] [place] [id number] Oct, [facility] [place] [address] [id number] [place] [id number] Oct, [facility] [address] [id number] [address] [place] [address], [place] [address] Oct, [facility] [place] [address] [id number] [place] [id number] Oct, [facility] [address] [id number] [address] [place] [address], [place] [address] Oct, [facility] [place] [address] [id number] [place] [id number] Oct, [facility] [address] [id number] [address] [place] [address], [place] [address] Oct, [facility] [address] [id number] [address] [place] [address], [place] [address] Oct, [facility] [place] [address] [id number] [place] [id number] Oct, [facility] [address] [id number] [address] [place] [address], [place] [address] Oct, [facility] [place] [address] [id number] [place] [id number] Oct, [facility] [place] [address] [id number] [place] [id number] Sep, [facility] [address] [id number] [address] [place] [address], [place] [address] Sep, [facility] [address] [id number] [address] [place] [address], [place] [address] Sep, [facility] [place] [address] [id number] [place] [id number] Sep, [facility] [place] [address] [id number] [place] [id number] Sep, [facility] [address] [id number] [address] [place] [address] Sep, [facility] [place] [address] [id number] [place] [id number] Aug, [facility] [address] [facility] [id number] [address] [place] [address] Aug, [facility] [place] [address] [id number] [place] [id number] Aug, [facility] [address] [id number] [address] [place] [address] Aug, [facility] [address] [facility] [id number] [address] [place] [address], [place] [address] Aug, [facility] [address] [facility] [id number] [address] [place] [address] Aug, [facility] [place] [address] [id number] [place] [id number] Jul, [facility] [address] [facility] [id number] [address] [place] [address] Jul, [facility] [place] [address] [id number] [place] [id number] Jun, [facility] [address] [id number] [address] [place] [address] Jun, [facility] [place] [address] [id number] [place] [id number] May, [facility] [address] [id number] [address] [place] [address] May, [facility] [place] [address] [id number] [place] [id number] Apr, [facility] [address] [id number] [address] [place] [address], [place] [address] Apr, [facility] [place] [address] [id number] [place] [id number] Mar, [facility] [address] [id number] [address] [place] [address] Feb, [facility] [place] [address] [id number] [place] [id number] Feb, [facility] [place] [address] [id number] [place] [id number] Feb, [facility] [place] [address] [id number] [place] [id number] Feb, [facility] [address] [id number] [address] [place] [address] Jan, [facility] [place] [address] [id number] [place] [id number] Jan, [facility] [place] [address] [id number] [place] [id number] Jan, [facility] [address] [id number] [address] [place] [address] Jan, [facility] [place] [address] [id number] [place] [id number] November, [facility] [place] [address] [id number] [place] [id number] November, [facility] [address] [id number] [address] [place] [address] November, [facility] [place] [address] [id number] [place] [id number] November, [facility] [place] [address] [id number] [place] [id number] Oct, [facility] [place] [address] [id number] [place] [id number] Oct, [facility] [place] [address] [id number] [place] [id number] Sep, [facility] [place] [address] [id number] [place] [id number] Sep, [facility] [place] [address] [id number] [place] [id number] Aug, [facility] [place] [address] [id number] [place] [id number] Jul, [facility] [place] [address] [id number] [place] [id number] Jun, [facility] [address] [facility] [id number] [address] [place] [address] Jun, [facility] [address] [facility] [id number] [address] [place] [address] May, [facility] [address] [facility] [id number] [address] [place] [address] May, [facility] [place] [address] [id number] [place] [id number] May, [facility] [place] [address] [id number] [place] [id number] May, [facility] [address] [facility] [id number] [address] [place] [address] May, [facility] [address] [facility] [id number] [address] [place] [address] May, [facility] [place] [address] [id number] [place] [id number] May, [facility] [address] [id number] [address] [place] [address], [place] [address] 14 May, 2012 [facility] [place] [address] [id number] [place] [id number] May, [facility] [address] [id number] [address] [place] [address] May, [facility] [place] [address] [id number] [place] [id number] May, [facility] [address] [id number] [address] [place] [address] May, [facility] [place] [address] [id number] [place] [id number] May, [facility] [address] [id number] [address] [place] [address] May, [facility] [address] [id number] [address] [place] [address] Apr, [facility] [address] [id number] [address] [place] [address] Apr, [facility] [address] [facility] [id number] [address] [place] [address] Apr, [facility] [address] [facility] [id number] [address] [place] [address] Apr, [facility] [place] [address] [id number] [place] [id number] Apr, [facility] [address] [id number] [address] [place] [address] Apr, [facility] [place] [address] [id number] [place] [id number] Apr, [facility] [place] [address] [id number] [place] [id number] Mar, [facility] [place] [address] [id number] [place] [id number] Mar, [facility] [place] [address] [id number] [place] [id number] Feb, [facility] [place] [address] [id number] [place] [id number] Jan, [facility] [place] [address] [id number] [place] [id number] Dec, [facility] [place] [address] [id number] [place] [id number] Dec, [facility] [place] [address] [id number] [place] [id number] November, [facility] [place] [address] [id number] [place] [id number] November, [facility] [place] [address] [id number] [place] [id number] November, [facility] [address] [facility] [id number] [address] [place] [address] November, [facility] [place] [address] [id number] [place] [id number] November, [facility] [place] [address] [id number] [place] [id number] November, [facility] [place] [address] [id number] [place] [id number] November, [facility] [place] [address] [id number] [place] [id number] Oct, [facility] [place] [address] [id number] [place] [id number] Oct, [facility] [place] [address] [id number] [place] [id number] Oct, [facility] [place] [address] [id number] [place] [id number] Oct, [facility] [place] [address] [id number] [place] [id number] Oct, [facility] [address] [facility] [id number] [address] [place] [address] Oct, [facility] [place] [address] [id number] [place] [id number] Oct, [facility] [place] [address] [id number] [place] [id number] Oct, [facility] [place] [address] [id number] [place] [id number] Sep, [facility] [place] [address] [id number] [place] [id number] Aug, [facility] [place] [address] [id number] [place] [id number] Aug, [facility] [place] [address] [id number] [place] [id number] Jul, [facility] [place] [address] [id number] [place] [id number] Jul, [facility] [address] [facility] [id number] [address] [place] [id number] Jul, [facility] [place] [address] [id number] [place] [id number] Jul, [facility] [address] [facility] [id number] [address] [place] [id number] Jun, [facility] [address] [facility] [id number] [address] [place] [address] Jun, [facility] [address] [facility] [id number] [address] [place] [address] May, [facility] [address] [facility] [id number] [address] [place] [id number] Apr, [facility] [address] [facility] [id number] [address] [place] [address] Apr, [facility] [address] [facility] [id number] [address] [place] [id number] Jan, [facility] [address] [facility] [id number] [address] [place] [id number] Dec, [facility] [address] [facility] [id number] [address] [place] [id number] Aug, [facility] [address] [id number] [address] [place] [address], [place] [address] 23 Jun, 2010 [facility] [address] [id number] [address] [place] [address], [place] [address] Jun, [facility] [address] [id number] [address] [place] [address], [place] [address] Jun, [facility] [address] [id number] [address] [place] [address], [place] [address] Jun, [facility] [address] [id number] [address] [place] [address], [place] [address] Jun, [facility] [address] [id number] [address] [place] [address], [place] [address] 15 May, 2010 [facility] [address] [id number] [address] [place] [address], [place] [address] 05 May, 2010 [facility] [address] [id number] [address] [place] [address], [place] [address] May, [facility] [address] [id number] [address] [place] [address], [place] [address] 18 Apr, 2010 [facility] [address] [id number] [address] [place] [address], [place] [address] Apr, [facility] [address] [id number] [address] [place] [address], [place] [address] Apr, [facility] [address] [id number] [address] [place] [address], [place] [id number] 11 Apr, 2010 [facility] [address] [id number] [address] [place] [address], [place] [id number] 10 Mar, 2010 [facility] [address] [id number] [address] [place] [address], [place] [id number] 17 Jun, 2009 [facility] [address] [id number] [address] [place] [address], [place] [id number] 14 Jun, 2009 [facility] [address] [id number] [address] [place] [address], [place] [address] Jun, IMMUNIZATIONS No Known Immunizations SOCIAL HISTORY Never Assessed REASON FOR VISIT PLAN OF CARE VITAL SIGNS Height 63 in 2014-09-25 Weight 119 lbs 2014-09-25 Temperature 99.2 degrees Fahrenheit 2014-09-25 Heart Rate 84 bpm 2014-09-25 Respiratory Rate 16 2014-09-25 Blood pressure systolic 122 mmHg 2014-09-25 Blood pressure diastolic 78 mmHg 2014-09-25 MEDICATIONS Unknown Medications RESULTS No Results PROCEDURES [...]
--- OUTSIDE RECORDS SUMMARY | 2020-01-13 17:56 | XMS REPORT ---
Author Author Ina Staley Doctor Organization [facility] Address Unknown Phone Unavailable Care Team Providers Care Curb Supervisor Name Role Phone Migration, Doctor Unavailable Unavailable PROBLEMS Type Condition ICD9-CM Code [id number] Code Onset Dates Condition S tatus SNOMED Code Problem ETOH abuse F10.10 Active 11634755 Problem Mild episode of recurrent major depressive disorder F33.0 Active [id number] ALLERGIES No Information ENCOUNTERS Encounter Location Date Diagnosis [facility], [place] [address] [address] November, [facility] [address] [id number] [address] [place] [address] November, [facility], [place] [address] [address] May, [facility], [place] [address] [id number] [address] [place] [address] May, Mild episode of recurrent ma shawna depressive disorder F33.0 ; Elevated blood pressure reading R03.0 ; Screening for hyperlipidemia Z13.220 ; Screening for thyroid disorder Z13.29 ; Screening for diabetes mellitus Z13.1 and History of seizures Z87.898 [facility] [id number] [place] [id number] Jul, [facility], [place] [address] [id number] [address] [place] [address] Oct, [facility], [place] [address] [id number] [address] [place] [address] Oct, [facility] [id number] [place] [address], [place] [id number] Sep, [facility], [place] [address] [id number] [address] [place] [address] Sep, [facility], [place] [address] [id number] [address] [place] [address], [place] [address] Aug, 2014 [facility] [address] [id number] [place] [id number] Aug, 2014 [facility] [address] [id number] [address] [place] [address], [place] [address] Aug, 2014 [facility] [address] [id number] [address] [place] [address], [place] [address] Aug, 2014 [facility] [place] [address] [id number] [place] [id number] Aug, [facility] [address] [id number] [address] [place] [address], [place] [address] Aug, [facility] [address] [id number] [address] [place] [address], [place] [address] Aug, [facility] [address] [facility] [id number] [place] [id number] Jul, [facility] [address] [id number] [address] [place] [address], [place] [address] Jul, [facility] [address] [id number] [address] [place] [address], [place] [address] Jul, [facility] [address] [id number] [address] [place] [address] Jul, [facility] [address] [facility] [id number] [place] [id number] Jul, [facility] [address] [id number] [address] [place] [address] Jul, [facility] [address] [id number] [address] [place] [address], [place] [address] Jun, [facility] [address] [id number] [address] [place] [address], [place] [address] Jun, [facility] [address] [facility] [id number] [place] [id number] Jun, [facility] [address] [id number] [address] [place] [address], [place] [address] Jun, [facility] [address] [id number] [place] [id number] Jun, [facility] [address] [id number] [address] [place] [address], [place] [address] Jun, [facility] [address] [id number] [address] [place] [address], [place] [address] Jun, [facility] [address] [id number] [address] [place] [address], [place] [address] May, [facility] [address] [id number] [address] [place] [address], [place] [address] May, [facility] [address] [facility] [id number] [place] [id number] May, [facility] [address] [id number] [address] [place] [address], [place] [address] May, [facility] [address] [id number] [address] [place] [address], [place] [address] Apr, [facility] [address] [id number] [address] [place] [address], [place] [address] Apr, [facility] [address] [facility] [id number] [place] [id number] Apr, [facility] [address] [id number] [address] [place] [address], [place] [address] Apr, [facility] [address] [id number] [address] [place] [address] Mar, [facility] [address] [id number] [address] [place] [address], [place] [address] Mar, [facility] [address] [id number] [address] [place] [address], [place] [address] Mar, [facility] [address] [id number] [address] [place] [address], [place] [address] Mar, [facility] [address] [id number] [place] [id number] Mar, [facility] [address] [id number] [facility] [place] [address] Mar, [facility] [address] [id number] [place] [id number] Mar, [facility] [address] [id number] [facility] [place] [address] Mar, [facility] [address] [id number] [address] [place] [address], [place] [address] Feb, [facility] [address] [id number] [address] [place] [address], [place] [address] Feb, [facility] [address] [id number] [address] [place] [address], [place] [address] Feb, [facility] [address] [id number] [address] [place] [address], [place] [address] Feb, [facility] [address] [id number] [address] [place] [address], [place] [address] Feb, [facility] [address] [id number] [address] [place] [address], [place] [address] Feb, [facility] [address] [id number] [place] [id number] Feb, [facility] [address] [id number] [facility] [place] [address] Feb, [facility] [address] [id number] [address] [place] [address], [place] [address] Jan, [facility] [address] [id number] [address] [place] [address], [place] [address] Jan, [facility] [address] [id number] [place] [id number] Jan, [facility] [address] [id number] [address] [place] [address], [place] [address] Jan, [facility] [address] [id number] [facility] [place] [address] Dec, [facility] [place] [address] [id number] [place] [id number] Dec, [facility] [place] [address] [id number] [place] [id number] November, [facility] [address] [id number] [facility] [place] [address] November, [facility] [place] [address] [id number] [place] [id number] November, [facility] [address] [id number] [facility] [place] [address] November, [facility] [address] [id number] [address] [place] [address], [place] [address] Oct, [facility] [place] [address] [id number] [place] [id number] Oct, [facility] [place] [address] [id number] [place] [id number] Oct, [facility] [address] [id number] [address] [place] [address], [place] [address] Oct, [facility] [place] [address] [id number] [place] [id number] Oct, [facility] [address] [id number] [address] [place] [address], [place] [address] Oct, [facility] [place] [address] [id number] [place] [id number] Oct, [facility] [address] [id number] [address] [place] [address], [place] [address] Oct, [facility] [address] [id number] [address] [place] [address], [place] [address] Oct, [facility] [place] [address] [id number] [place] [id number] Oct, [facility] [address] [id number] [address] [place] [address], [place] [address] Oct, [facility] [place] [address] [id number] [place] [id number] Oct, [facility] [place] [address] [id number] [place] [id number] Sep, [facility] [address] [facility] [id number] [address] [place] [address], [place] [address] Sep, [facility] [address] [facility] [id number] [address] [place] [address], [place] [address] Sep, [facility] [place] [address] [id number] [place] [id number] Sep, [facility] [place] [address] [id number] [place] [id number] Sep, [facility] [address] [facility] [id number] [address] [place] [address], [place] [address] Sep, [facility] [place] [address] [id number] [place] [id number] Aug, [facility] [address] [facility] [id number] [address] [place] [address] Aug, [facility] [place] [address] [id number] [place] [id number] Aug, [facility] [address] [facility] [id number] [address] [place] [address] Aug, [facility] [address] [facility] [id number] [address] [place] [address] Aug, [facility] [address] [facility] [id number] [address] [place] [address] Aug, [facility] [place] [address] [id number] [place] [id number] Jul, [facility] [address] [facility] [id number] [address] [place] [address] Jul, [facility] [place] [address] [id number] [place] [id number] Jun, [facility] [address] [facility] [id number] [address] [place] [address] Jun, [facility] [place] [address] [id number] [place] [id number] May, [facility] [address] [facility] [id number] [address] [place] [address] May, [facility] [place] [address] [id number] [place] [id number] Apr, [facility] [address] [id number] [address] [place] [address] Apr, [facility] [place] [address] [id number] [place] [id number] Mar, [facility] [address] [facility] [id number] [address] [place] [address] Feb, [facility] [place] [address] [id number] [place] [id number] Feb, [facility] [place] [address] [id number] [place] [id number] Feb, [facility] [place] [address] [id number] [place] [id number] Feb, [facility] [address] [facility] [id number] [address] [place] [address], [place] [address] Jan, [facility] [place] [address] [id number] [place] [id number] Jan, [facility] [place] [address] [id number] [place] [id number] Jan, [facility] [address] [facility] [id number] [address] [place] [address] Jan, [facility] [place] [address] [id number] [place] [id number] November, [facility] [place] [address] [id number] [place] [id number] November, [facility] [address] [facility] [id number] [address] [place] [address] November, [facility] [place] [address] [id number] [place] [id number] November, [facility] [place] [address] [id number] [place] [id number] Oct, [facility] [place] [address] [id number] [place] [id number] Oct, [facility] [place] [address] [id number] [place] [id number] Sep, [facility] [place] [address] [id number] [place] [id number] Sep, [facility] [place] [address] [id number] [place] [id number] Aug, [facility] [place] [address] [id number] [place] [id number] Jul, [facility] [place] [address] [id number] [place] [id number] Jun, [facility] [address] [facility] [id number] [address] [place] [address] Jun, [facility] [address] [facility] [id number] [address] [place] [address] May, [facility] [address] [facility] [id number] [address] [place] [address] May, [facility] [place] [address] [id number] [place] [id number] May, [facility] [place] [address] [id number] [place] [id number] May, [facility] [address] [facility] [id number] [address] [place] [address] May, [facility] [address] [facility] [id number] [address] [place] [address] May, [facility] [place] [address] [id number] [place] [id number] May, [facility] [address] [facility] [id number] [address] [place] [address] May, [facility] [place] [address] [id number] [place] [id number] May, [facility] [address] [id number] [address] [place] [address] May, [facility] [place] [address] [id number] [place] [id number] May, [facility] [address] [facility] [id number] [address] [place] [address] May, [facility] [place] [address] [id number] [place] [id number] May, [facility] [address] [id number] [address] [place] [address] May, [facility] [address] [facility] [id number] [address] [place] [address] Apr, [facility] [address] [facility] [id number] [address] [place] [address] Apr, [facility] [address] [facility] [id number] [address] [place] [address] Apr, [facility] [address] [facility] [id number] [address] [place] [address] Apr, [facility] [place] [address] [id number] [place] [id number] Apr, [facility] [address] [facility] [id number] [address] [place] [address] Apr, [facility] [place] [address] [id number] [place] [id number] Apr, [facility] [place] [address] [id number] [place] [id number] Mar, [facility] [place] [address] [id number] [place] [id number] Mar, [facility] [place] [address] [id number] [place] [id number] Feb, [facility] [place] [address] [id number] [place] [id number] Jan, [facility] [place] [address] [id number] [place] [id number] Dec, [facility] [place] [address] [id number] [place] [id number] Dec, [facility] [place] [address] [id number] [place] [id number] November, [facility] [place] [address] [id number] [place] [id number] November, [facility] [place] [address] [id number] [place] [id number] November, [facility] [address] [id number] [place] [address] November, [facility] [place] [address] [id number] [place] [id number] November, [facility] [place] [address] [id number] [place] [id number] November, [facility] [place] [address] [id number] [place] [id number] November, [facility] [place] [address] [id number] [place] [id number] Oct, [facility] [place] [address] [id number] [place] [id number] Oct, [facility] [place] [address] [id number] [place] [id number] Oct, [facility] [place] [address] [id number] [place] [id number] Oct, [facility] [place] [address] [id number] [place] [id number] Oct, [facility] [address] [id number] [address] [address] Oct, [facility] [place] [address] [id number] [place] [id number] Oct, [facility] [place] [address] [id number] [place] [id number] Oct, [facility] [place] [address] [id number] [place] [id number] Sep, [facility] [place] [address] [id number] [place] [id number] Aug, [facility] [place] [address] [id number] [place] [id number] Aug, [facility] [place] [address] [id number] [place] [id number] Jul, [facility] [place] [address] [id number] [place] [id number] Jul, [facility] [address] [id number] [address] [place] [address] Jul, [facility] [place] [address] [id number] [place] [id number] Jul, [facility] [address] [id number] [address] [place] [address] Jun, [facility] [address] [id number] [address] [place] [address] Jun, [facility] [address] [id number] [address] [place] [address] May, [facility] [address] [id number] [address] [place] [id number] Apr, [facility] [address] [facility] [id number] [address] [place] [address] Apr, [facility] [address] [id number] [address] [place] [address] Jan, [facility] [address] [id number] [address] [place] [address] Dec, [facility] [address] [id number] [address] [place] [address] Aug, [facility] [address] [id number] [address] [place] [address] Jun, [facility] [address] [id number] [address] [place] [id number] Jun, [facility] [place] [address] [id number] [address] [place] [id number] Jun, [facility] [place] [address] [id number] [address] [place] [id number] Jun, [facility] [place] [address] [id number] [address] [place] [id number] Jun, [facility] [place] [address] [id number] [address] [place] [address] May, [facility] [place] [address] [id number] [address] [place] [address] May, [facility] [place] [address] [id number] [address] [place] [address] May, [facility] [place] [address] [id number] [address] [place] [address] Apr, [facility] [place] [address] [id number] [address] [place] [id number] Apr, [facility] [place] [address] [id number] [address] [place] [address] Apr, [facility] [place] [address] [id number] [address] [place] [address] Apr, [facility] [place] [address] [id number] [address] [place] [id number] Mar, [facility] [place] [address] [id number] [address] [place] [id number] Jun, [facility] [place] [address] [id number] [address] [place] [address] Jun, [facility] [place] [address] [id number] [address] [place] [address] Jun, IMMUNIZATIONS No Known Immunizations SOCIAL HISTORY Never Assessed REASON FOR VISIT [place] [place] CARE VITAL SIGNS MEDICATIONS Unknown [...]
--- OUTSIDE RECORDS SUMMARY | 2020-01-13 17:56 | XMS REPORT ---
Author Author Ina Staley Doctor Organization [facility] Address Unknown Phone Unavailable Care Team Providers Care Resort Housekeeper Name Role Phone Migration, Doctor Unavailable Unavailable PROBLEMS Type Condition ICD9-CM Code DIT83-OD Code Onset Dates Condition S tatus SNOMED Code Problem ETOH abuse F10.10 Active 05408263 Problem Mild episode of recurrent major depressive disorder F33.0 Active [id number] ALLERGIES No Information ENCOUNTERS Encounter Location Date Diagnosis [facility] [address] [address] November, [facility] [address] [id number] [address] [place] [address] November, [facility] [address] [address] May, [facility] [address] [id number] [address] [place] [address] May, Mild episode of recurrent ma shawna depressive disorder F33.0 ; Elevated blood pressure reading R03.0 ; Screening for hyperlipidemia Z13.220 ; Screening for thyroid disorder Z13.29 ; Screening for diabetes mellitus Z13.1 and History of seizures Z87.898 [facility] [id number] [place] [id number] Jul, [facility] [address] [id number] [address] [place] [address] Oct, [facility] [address] [id number] [address] [place] [address] Oct, [facility] [id number] [place] [address], [place] [id number] Sep, [facility] [address] [id number] [address] [place] [address] Sep, [facility] [address] [id number] [address] [place] [address], [place] [address] Aug, 2014 [facility] [address] [id number] [place] [id number] Aug, 2014 [facility] [address] [id number] [address] [place] [address], [place] [address] Aug, 2014 [facility] [address] [id number] [address] [place] [address], [place] [address] Aug, 2014 [facility] [place] [address] [id number] [place] [id number] Aug, [facility] [address] [id number] [address] [place] [address], [place] [address] Aug, [facility] [address] [id number] [address] [place] [address], [place] [address] Aug, [facility] [address] [facility] [id number] [place] [id number] Jul, [facility] [address] [id number] [address] [place] [address], [place] [address] Jul, [facility] [address] [id number] [address] [place] [address], [place] [address] Jul, [facility] [address] [id number] [address] [place] [id number] Jul, [facility] [address] [facility] [id number] [place] [id number] Jul, [facility] [address] [id number] [address] [place] [address] Jul, [facility] [address] [id number] [address] [place] [address], [place] [address] Jun, [facility] [address] [id number] [address] [place] [address], [place] [address] Jun, [facility] [address] [facility] [id number] [place] [id number] Jun, [facility] [address] [id number] [address] [place] [address], [place] [address] Jun, [facility] [address] [id number] [place] [id number] Jun, [facility] [address] [id number] [address] [place] [address], [place] [address] Jun, [facility] [address] [id number] [address] [place] [address], [place] [address] Jun, [facility] [address] [id number] [address] [place] [address], [place] [address] May, [facility] [address] [id number] [address] [place] [address], [place] [address] May, [facility] [address] [facility] [id number] [place] [id number] May, [facility] [address] [id number] [address] [place] [address], [place] [address] May, [facility] [address] [id number] [address] [place] [address], [place] [address] Apr, [facility] [address] [id number] [address] [place] [address], [place] [address] Apr, [facility] [address] [facility] [id number] [place] [id number] Apr, [facility] [address] [id number] [address] [place] [address], [place] [address] Apr, [facility] [address] [id number] [address] [place] [address] Mar, [facility] [address] [id number] [address] [place] [address], [place] [address] Mar, [facility] [address] [id number] [address] [place] [address], [place] [address] Mar, [facility] [address] [id number] [address] [place] [address], [place] [address] Mar, [facility] [place] [address] [id number] [place] [id number] Mar, [facility] [address] [id number] [facility] [place] [address] Mar, [facility] [place] [address] [id number] [place] [id number] Mar, [facility] [address] [id number] [facility] [place] [address] Mar, [facility] [address] [id number] [address] [place] [address], [place] [address] Feb, [facility] [address] [id number] [address] [place] [address], [place] [address] Feb, [facility] [address] [id number] [address] [place] [address], [place] [address] Feb, [facility] [address] [id number] [address] [place] [address], [place] [address] Feb, [facility] [address] [id number] [address] [place] [address], [place] [address] Feb, [facility] [address] [id number] [address] [place] [address], [place] [address] Feb, [facility] [address] [id number] [place] [id number] Feb, [facility] [address] [id number] [facility] [place] [address] Feb, [facility] [address] [id number] [address] [place] [address], [place] [address] Jan, [facility] [address] [id number] [address] [place] [address], [place] [address] Jan, [facility] [address] [id number] [place] [id number] Jan, [facility] [address] [id number] [address] [place] [address], [place] [address] Jan, [facility] [address] [id number] [facility] [place] [address] Dec, [facility] [place] [address] [id number] [place] [id number] Dec, [facility] [place] [address] [id number] [place] [id number] November, [facility] [address] [id number] [facility] [place] [address] November, [facility] [place] [address] [id number] [place] [id number] November, [facility] [address] [id number] [facility] [place] [address] November, [facility] [address] [id number] [address] [place] [address], [place] [address] Oct, [facility] [place] [address] [id number] [place] [id number] Oct, [facility] [place] [address] [id number] [place] [id number] Oct, [facility] [address] [id number] [address] [place] [address], [place] [address] Oct, [facility] [place] [address] [id number] [place] [id number] Oct, [facility] [address] [id number] [address] [place] [address], [place] [address] Oct, [facility] [place] [address] [id number] [place] [id number] Oct, [facility] [address] [id number] [address] [place] [address], [place] [address] Oct, [facility] [address] [id number] [address] [place] [address], [place] [address] Oct, [facility] [place] [address] [id number] [place] [id number] Oct, [facility] [address] [id number] [address] [place] [address], [place] [address] Oct, [facility] [place] [address] [id number] [place] [id number] Oct, [facility] [place] [address] [id number] [place] [id number] Sep, [facility] [address] [facility] [id number] [address] [place] [address], [place] [address] Sep, [facility] [address] [facility] [id number] [address] [place] [address], [place] [address] Sep, [facility] [place] [address] [id number] [place] [id number] Sep, [facility] [place] [address] [id number] [place] [id number] Sep, [facility] [address] [facility] [id number] [address] [place] [address], [place] [address] Sep, [facility] [place] [address] [id number] [place] [id number] Aug, [facility] [address] [facility] [id number] [address] [place] [address] Aug, [facility] [place] [address] [id number] [place] [id number] Aug, [facility] [address] [facility] [id number] [address] [place] [id number] Aug, [facility] [address] [facility] [id number] [address] [place] [address] Aug, [facility] [address] [facility] [id number] [address] [place] [address] Aug, [facility] [place] [address] [id number] [place] [id number] Jul, [facility] [address] [facility] [id number] [address] [place] [address] Jul, [facility] [place] [address] [id number] [place] [id number] Jun, [facility] [address] [facility] [id number] [address] [place] [address] Jun, [facility] [place] [address] [id number] [place] [id number] May, [facility] [address] [facility] [id number] [address] [place] [address] May, [facility] [place] [address] [id number] [place] [id number] Apr, [facility] [address] [id number] [address] [place] [address] Apr, [facility] [place] [address] [id number] [place] [id number] Mar, [facility] [address] [facility] [id number] [address] [place] [address] Feb, [facility] [place] [address] [id number] [place] [id number] Feb, [facility] [place] [address] [id number] [place] [id number] Feb, [facility] [place] [address] [id number] [place] [id number] Feb, [facility] [address] [facility] [id number] [address] [place] [address], [place] [address] Jan, [facility] [place] [address] [id number] [place] [id number] Jan, [facility] [place] [address] [id number] [place] [id number] Jan, [facility] [address] [facility] [id number] [address] [place] [address] Jan, [facility] [place] [address] [id number] [place] [id number] November, [facility] [place] [address] [id number] [place] [id number] November, [facility] [address] [facility] [id number] [address] [place] [id number] November, [facility] [place] [address] [id number] [place] [id number] November, [facility] [place] [address] [id number] [place] [id number] Oct, [facility] [place] [address] [id number] [place] [id number] Oct, [facility] [place] [address] [id number] [place] [id number] Sep, [facility] [place] [address] [id number] [place] [id number] Sep, [facility] [place] [address] [id number] [place] [id number] Aug, [facility] [place] [address] [id number] [place] [id number] Jul, [facility] [place] [address] [id number] [place] [id number] Jun, [facility] [address] [facility] [id number] [address] [place] [id number] Jun, [facility] [address] [facility] [id number] [address] [place] [id number] May, [facility] [address] [facility] [id number] [address] [place] [address] May, [facility] [place] [address] [id number] [place] [id number] May, [facility] [place] [address] [id number] [place] [id number] May, [facility] [address] [facility] [id number] [address] [place] [address] May, [facility] [address] [facility] [id number] [address] [place] [address] May, [facility] [place] [address] [id number] [place] [id number] May, [facility] [address] [facility] [id number] [address] [place] [address] May, [facility] [place] [address] [id number] [place] [id number] May, [facility] [address] [id number] [address] [place] [address] May, [facility] [place] [address] [id number] [place] [id number] May, [facility] [address] [facility] [id number] [address] [place] [id number] May, [facility] [place] [address] [id number] [place] [id number] May, [facility] [address] [id number] [address] [place] [address] May, [facility] [address] [facility] [id number] [address] [place] [address] Apr, [facility] [address] [facility] [id number] [address] [place] [address] Apr, [facility] [address] [facility] [id number] [address] [place] [id number] Apr, [facility] [address] [facility] [id number] [address] [place] [address] Apr, [facility] [place] [address] [id number] [place] [id number] Apr, [facility] [address] [facility] [id number] [address] [place] [id number] Apr, [facility] [place] [address] [id number] [place] [id number] Apr, [facility] [place] [address] [id number] [place] [id number] Mar, [facility] [place] [address] [id number] [place] [id number] Mar, [facility] [place] [address] [id number] [place] [id number] Feb, [facility] [place] [address] [id number] [place] [id number] Jan, [facility] [place] [address] [id number] [place] [id number] Dec, [facility] [place] [address] [id number] [place] [id number] Dec, [facility] [place] [address] [id number] [place] [id number] November, [facility] [place] [address] [id number] [place] [id number] November, [facility] [place] [address] [id number] [place] [id number] November, [facility] [address] [id number] [address] [address] November, [facility] [place] [address] [id number] [place] [id number] November, [facility] [place] [address] [id number] [place] [id number] November, [facility] [place] [address] [id number] [place] [id number] November, [facility] [place] [address] [id number] [place] [id number] Oct, [facility] [place] [address] [id number] [place] [id number] Oct, [facility] [place] [address] [id number] [place] [id number] Oct, [facility] [place] [address] [id number] [place] [id number] Oct, [facility] [place] [address] [id number] [place] [id number] Oct, [facility] [address] [id number] [address] [address] Oct, [facility] [place] [address] [id number] [place] [id number] Oct, [facility] [place] [address] [id number] [place] [id number] Oct, [facility] [place] [address] [id number] [place] [id number] Sep, [facility] [place] [address] [id number] [place] [id number] Aug, [facility] [place] [address] [id number] [place] [id number] Aug, [facility] [place] [address] [id number] [place] [id number] Jul, [facility] [place] [address] [id number] [place] [id number] Jul, [facility] [address] [id number] [address] [place] [id number] Jul, [facility] [place] [address] [id number] [place] [id number] Jul, [facility] [address] [id number] [address] [place] [id number] Jun, [facility] [address] [id number] [address] [place] [id number] Jun, [facility] [address] [id number] [address] [place] [id number] May, [facility] [address] [id number] [address] [place] [id number] Apr, [facility] [address] [facility] [id number] [address] [place] [id number] Apr, [facility] [address] [id number] [address] [place] [id number] Jan, [facility] [address] [id number] [address] [place] [id number] Dec, [facility] [address] [id number] [address] [place] [address] Aug, [facility] [address] [id number] [address] [place] [id number] Jun, [facility] [address] [id number] [address] [place] [id number] Jun, [facility] [address] [id number] [address] [place] [id number] Jun, [facility] [address] [id number] [address] [place] [id number] Jun, [facility] [address] [id number] [address] [place] [id number] Jun, [facility] [address] [id number] [address] [place] [id number] May, [facility] [address] [id number] [address] [place] [id number] May, [facility] [address] [id number] [address] [place] [id number] May, [facility] [address] [id number] [address] [place] [address] Apr, [facility] [address] [id number] [address] [place] [id number] Apr, [facility] [address] [id number] [address] [place] [id number] Apr, [facility] [address] [id number] [address] [place] [id number] Apr, [facility] [address] [id number] [address] [place] [address] Mar, [facility] [address] [id number] [address] [place] [id number] Jun, [facility] [address] [id number] [address] [place] [id number] Jun, [facility] [address] [id number] [address] [place] [id number] Jun, IMMUNIZATIONS No Known Immunizations SOCIAL HISTORY Never Assessed REASON FOR [place]IT [place] [place] VITAL SIGNS MEDICATIONS Unknown [...]
[2020-01-13] MEDS ORDERED: LACTATED RINGERS 1,000 ML IV ONE (17:57)
--- OUTSIDE RECORDS SUMMARY | 2020-01-13 17:58 | XMS REPORT | Continuity of Care Document ---
Author Organization Unknown Address Unknown Phone Unavailable Allergies Active Description Code Type Severity Reaction Onset Reported/Identified Relationship to Patient Clinical Status Yes codeine Drug Allergy N/A N/A 10/29/2008 Yes Penicillins Drug Allergy N/A N/A 10/29/2008 Yes codeine Drug Allergy 10/29/2008 Yes Penicillins Drug Allergy 10/29/2008 Yes Strattera 40 mg capsule Drug Allergy N/A N/A 11/07/2013 Yes codeine [id number] Drug Allergy Unknown N/A 10/09/2019 Yes HYDROCOD HYDROCOD Un known N/A 10/09/2019 Yes penicillin G [id number] Drug Allergy Unknown N/A 10/09/2019 Medications There is no data. Problems Date Dx Coded Attending Type Code Diagnosis Diagnosed By 02/08/2008 MELISA ANGELA MD V22. 1 Pc Other Normal 02/08/2008 MELISA ANGELA MD V22. 1 Pc Other Normal 02/08/2008 MELISA ANGELA MD V22. 1 Pc Other Normal 02/08/2008 V22.1 Pc O ther Normal 02/08/2008 V22.1 Pc O ther Normal 02/08/2008 V22.1 Pc O ther Normal 02/08/2008 MAYNOR PITT DO V22.1 Pc [...] PITT DO V22.1 Pc Other Normal 02/08/2008 HELLWIG [employer]ANT, LATOYA E V22.1 Pc Other Normal 02/08/2008 MAYNOR PITT DO K V22.1 Pc Other Normal 02/08/2008 MAYNOR PITT DO K V22.1 Pc Other Normal 02/08/2008 MAYNOR PITT DO K V22.1 Pc Other Normal 02/08/2008 LATOYA GALE APRN E V22.1 Pc Other Normal 02/08/2008 MAYNOR PITT DO V22.1 Pc Other Normal 02/08/2008 SANDY DEJESUS APRN V22.1 Pc Other Normal 02/08/2008 TEJAL FISH V22.1 Pc Other Normal 02/08/2008 MAYNOR PITT DO K V22.1 Pc Other Normal 02/08/2008 ISAAC PARISH RN V22. 1 Pc Other Normal 02/08/2008 ISAAC PARISH RN V22. 1 Pc Other Normal 02/08/2008 ISACA PARISH RN V22. 1 Pc Other Normal 02/08/2008 ISAAC PARISH RN V22. 1 Pc Other Normal 02/08/2008 MAYNOR PITT DO V22.1 Pc Other Normal 02/08/2008 MAYNOR PITT DO K V22.1 Pc Other Normal 02/08/2008 MAYNOR PITT DO K V22.1 Pc Other Normal 02/08/2008 ISAAC PARISH RN V22. 1 Pc Other Normal 02/08/2008 ISAAC PARISH RN V22. 1 Pc Other Normal 02/08/2008 ISAAC PARISH RN V22. 1 Pc Other Normal 02/15/2008 MELISA ANGELA MD 787. 02 NAUSEA ALONE 02/15/2008 MELISA ANGELA MD 787. 02 NAUSEA ALONE 02/15/2008 MELISA ANGELA MD 787. 02 NAUSEA ALONE 02/15/2008 787.02 LOI SEA ALONE 02/15/2008 787.02 LOI SEA ALONE 02/15/2008 787.02 LOI SEA ALONE 02/15/2008 MAYNOR PITT DO 787.02 NAUSEA [...] SANDY DEJESUS APRN 787.02 NAUSEA ALONE 02/15/2008 GHASSAN MEDELLINTEJAL 787.02 NAUSEA ALONE 02/15/2008 PITT DO, MAYNOR K 787.02 NAUSEA ALONE 02/15/2008 МАРИНА ROBERT, ISAAC E 787. 02 NAUSEA ALONE 02/15/2008 МАРИНА ROBERT, ISAAC E 787. 02 NAUSEA ALONE 02/15/2008 МАРИНА ROBERT, ISAAC E 787. 02 NAUSEA ALONE 02/15/2008 МАРИНА ROBERT, ISAAC E 787. 02 NAUSEA ALONE 02/15/2008 PITT DO, MAYNOR K 787.02 NAUSEA ALONE 02/15/2008 PITT DO, MAYNOR K 787.02 NAUSEA ALONE 02/15/2008 ANASTACIO PITT DOA K 787.02 NAUSEA ALONE 02/15/2008 МАРИНА ROBERT, ISAAC E 787. 02 NAUSEA ALONE 02/15/2008 МАРИНА ROBERT, ISAAC E 787. 02 NAUSEA ALONE 02/15/2008 МАРИНА ROBERT, ISAAC E 787. 02 NAUSEA ALONE 10/30/2008 MELISA ANGELA MD V25. 9 CONTRACEPTIVE MANAGEMENT, UNSPECIFIED 10/30/2008 MELISA ANGELA MD V25. 9 CONTRACEPTIVE MANAGEMENT, UNSPECIFIED 10/30/2008 MELISA ANGELA MD V25. 9 CONTRACEPTIVE MANAGEMENT, UNSPECIFIED 10/30/2008 V25.9 CONT RACEPTIVE MANAGEMENT, UNSPECIFIED 10/30/2008 V25.9 CONT RACEPTIVE MANAGEMENT, UNSPECIFIED 10/30/2008 V25.9 CONT RACEPTIVE MANAGEMENT, UNSPECIFIED 10/30/2008 PITT DO, MAYNOR K [...] MAYNOR K V25.9 CONTRACEPTIVE MANAGEMENT, UNSPECIFIED 10/30/2008 МАРИНА ROBERT, ISAAC E V25. 9 CONTRACEPTIVE MANAGEMENT, UNSPECIFIED 10/30/2008 МАРИНА ROBERT, ISAAC E V25. 9 CONTRACEPTIVE MANAGEMENT, UNSPECIFIED 10/30/2008 МАРИНА ROBERT, ISAAC E V25. 9 CONTRACEPTIVE MANAGEMENT, UNSPECIFIED 10/30/2008 МАРИНА ROBERT, ISAAC E V25. 9 CONTRACEPTIVE MANAGEMENT, UNSPECIFIED 10/30/2008 PITT DO, MAYNOR K V25.9 CONTRACEPTIVE MANAGEMENT, UNSPECIFIED 10/30/2008 PITT DO, MAYNOR K V25.9 CONTRACEPTIVE MANAGEMENT, UNSPECIFIED 10/30/2008 SWEETIE ANGULO, MAYNOR Cheng V25.9 CONTRACEPTIVE MANAGEMENT, UNSPECIFIED 10/30/2008 МАРИНА ROBERT, ISAAC Reyes V25. 9 CONTRACEPTIVE MANAGEMENT, UNSPECIFIED 10/30/2008 МАРИНА ROBERT, ISAAC Reyes V25. 9 CONTRACEPTIVE MANAGEMENT, UNSPECIFIED 10/30/2008 МАРИНА ROBERT, ISAAC Reyes V25. 9 CONTRACEPTIVE MANAGEMENT, UNSPECIFIED 07/02/2009 MELISA ANGELA MD 780. 39 convulsions [as sx] 07/02/2009 MELISA ANGELA MD 780. 39 convulsions [as sx] 07/02/2009 MELISA ANGELA MD 780. 39 convulsions [as sx] 07/02/2009 780.39 con vulsions [as sx] 07/02/2009 780.39 con vulsions [as sx] 07/02/2009 780.39 con vulsions [as sx] 07/02/2009 SWEETIE DOMAYNOR K 780.39 convulsions [as sx] 07/02/2009 PITT DO, MAYNOR K 780.39 convulsions [as sx] 07/02/2009 PITT DO, MAYNOR K 780.39 convulsions [as sx] 07/02/2009 SANDY DEJESUS APRN 780.39 convulsions [as sx] 07/02/2009 PITT DO, MAYNOR K 780.39 convulsions [as sx] 07/02/2009 SANDY DEJESUS APRN 780.39 convulsions [as sx] 07/02/2009 PITT DO, MAYNOR K 780.39 convulsions [as sx] 07/02/2009 PITT DO, MAYNOR K 780.39 convulsions [as sx] 07/02/2009 LATOYA GALE APRN 780.39 convulsions [as sx] 07/02/2009 PITT DO, MAYNOR K 780.39 convulsions [as sx] 07/02/2009 PITT DO, MAYNOR K 780.39 convulsions [as sx] 07/02/2009 PITT DO, MAYONR K 780.39 convulsions [as sx] 07/02/2009 LATOYA GALE APRN 780.39 convulsions [as sx] 07/02/2009 PITT DO, MAYNOR K 780.39 convulsions [as sx] 07/02/2009 SANDY DEJESUS APRN 780.39 convulsions [as sx] 07/02/2009 TEJAL FISH 780.39 convulsions [as sx] 07/02/2009 MAYNOR PITT DO 780.39 convulsions [as sx] 07/02/2009 МАРИНА ROBERT, ISAAC Reyes 780. 39 convulsions [as sx] 07/02/2009 МАРИНА ROBERT, ISAAC Reyes 780. 39 convulsions [as sx] 07/02/2009 МАРИНА ROBERT, ISAAC Reyes 780. 39 convulsions [as sx] 07/02/2009 МАРИНА ROBERT, ISAAC Reyes 780. 39 convulsions [as sx] 07/02/2009 MAYNOR PITT DO 780.39 convulsions [as sx] 07/02/2009 MAYNOR PITT DO 780.39 convulsions [as sx] 07/02/2009 MAYNOR PITT DO 780.39 convulsions [as sx] 07/02/2009 ISAAC PARISH RN 780. 39 convulsions [as sx] 07/02/2009 МАРИНА ROBERT, ISAAC Reyes 780. 39 convulsions [as sx] 07/02/2009 МАРИНА ROBERT, ISAAC Reyes 780. 39 convulsions [as sx] 02/17/2010 MELISA ANGELA MD 651. 00 HIGH RISK MULTIPLE GESTATION 02/17/2010 MELISA ANGELA MD 651. 00 HIGH RISK MULTIPLE GESTATION 02/17/2010 MELISA ANGELA MD 651. 00 HIGH RISK MULTIPLE GESTATION 02/17/2010 651.00 HIG H RISK MULTIPLE GESTATION 02/17/2010 651.00 HIG H RISK MULTIPLE GESTATION 02/17/2010 651.00 HIG H RISK MULTIPLE GESTATION 02/17/2010 MAYNOR PITT DO 651.00 HIGH RISK MULTIPLE GESTATION 02/17/2010 MAYNOR PITT DO 651.00 HIGH RISK MULTIPLE GESTATION 02/17/2010 MAYNOR PITT DO 651.00 HIGH RISK MULTIPLE GESTATION 02/17/2010 SANDY DEJESUS APRN 651.00 HIGH RISK MULTIPLE GESTATION 02/17/2010 MAYNOR PITT DO 651.00 HIGH RISK MULTIPLE GESTATION 02/17/2010 SANDY DEJESUS APRN 651.00 HIGH RISK MULTIPLE GESTATION 02/17/2010 PITT [...] APRN 651.00 HIGH RISK MULTIPLE GESTATION 02/17/2010 TEJAL FISH 651.00 HIGH RISK MULTIPLE GESTATION 02/17/2010 PITT DO, MAYNOR K 651.00 HIGH RISK MULTIPLE GESTATION 02/17/2010 ISAAC PARISH RN 651. 00 HIGH RISK MULTIPLE GESTATION 02/17/2010 ISAAC PARISH RN 651. 00 HIGH RISK MULTIPLE GESTATION 02/17/2010 ISAAC PARISH RN 651. 00 HIGH RISK MULTIPLE GESTATION 02/17/2010 IASAC PARISH RN 651. 00 HIGH RISK MULTIPLE GESTATION 02/17/2010 PITT DO, MANYOR K 651.00 HIGH RISK MULTIPLE GESTATION 02/17/2010 PITT DO, MAYNOR K 651.00 HIGH RISK MULTIPLE GESTATION 02/17/2010 PITT DO, MAYNOR K 651.00 HIGH RISK MULTIPLE GESTATION 02/17/2010 ISAAC PARISH RN 651. 00 HIGH RISK MULTIPLE GESTATION 02/17/2010 ISAAC PARISH RN 651. 00 HIGH RISK MULTIPLE GESTATION 02/17/2010 ISAAC PARISH RN 651. 00 HIGH RISK MULTIPLE GESTATION 02/25/2010 MELISA ANGELA MD 345. 10 SEIZURE DISORDER GENERALIZED CONVULSIVE GRAND MAL 02/25/2010 MELISA ANGELA MD 794. 5 NONSPECIFIC ABNORMAL RESULTS OF FUNCTION STUDIES, THYROID 02/25/2010 MELISA ANGELA MD V23. 3 HIGH-RISK WITH GRAND MULTIPARITY 02/25/2010 MELISA ANGELA MD V23. 9 SUPERVISION OF UNSPECIFIED HIGH-RISK 02/25/2010 MELISA ANGELA MD 345. 10 SEIZURE DISORDER GENERALIZED CONVULSIVE GRAND MAL 02/25/2010 MELISA ANGELA MD 794. 5 NONSPECIFIC ABNORMAL RESULTS OF FUNCTION STUDIES, THYROID 02/25/2010 MELISA ANGELA MD V23. 3 HIGH-RISK WITH GRAND MULTIPARITY 02/25/2010 MELISA ANGELA MD V23. 9 SUPERVISION OF UNSPECIFIED HIGH-RISK 02/25/2010 MELISA ANGELA MD 345. 10 SEIZURE DISORDER GENERALIZED CONVULSIVE GRAND MAL 02/25/2010 MELISA ANGELA MD 794. 5 NONSPECIFIC ABNORMAL RESULTS OF FUNCTION STUDIES, THYROID 02/25/2010 MELISA ANGELA MD V23. 3 HIGH-RISK WITH GRAND MULTIPARITY 02/25/2010 MELISA ANGELA MD V23. 9 SUPERVISION OF UNSPECIFIED HIGH-RISK 02/25/2010 345.10 SEI ZURE DISORDER GENERALIZED CONVULSIVE GRAND MAL 02/25/2010 794.5 NONS PECIFIC ABNORMAL RESULTS OF FUNCTION STUDIES, THYROID 02/25/2010 V23.3 HIGH -RISK WITH GRAND MULTIPARITY 02/25/2010 V23.9 SUPE RVISION OF UNSPECIFIED HIGH-RISK 02/25/2010 345.10 SEI ZURE DISORDER GENERALIZED CONVULSIVE GRAND MAL 02/25/2010 794.5 NONS PECIFIC ABNORMAL RESULTS OF FUNCTION STUDIES, THYROID 02/25/2010 V23.3 HIGH -RISK WITH GRAND MULTIPARITY 02/25/2010 V23.9 SUPE RVISION OF UNSPECIFIED HIGH-RISK 02/25/2010 345.10 SEI ZURE DISORDER GENERALIZED CONVULSIVE GRAND MAL 02/25/2010 794.5 NONS PECIFIC ABNORMAL RESULTS OF FUNCTION STUDIES, THYROID 02/25/2010 V23.3 HIGH -RISK WITH GRAND MULTIPARITY 02/25/2010 V23.9 SUPE RVISION OF UNSPECIFIED HIGH-RISK 02/25/2010 MAYNOR PITT DO K 345.10 SEIZURE DISORDER GENERALIZED CONVULSIVE GRAND MAL 02/25/2010 MAYNOR PITT DO 794.5 NONSPECIFIC ABNORMAL RESULTS OF FUNCTION STUDIES, THYROID 02/25/2010 MAYNOR PITT DO K V23.3 HIGH-RISK WITH GRAND MULTIPARITY 02/25/2010 MAYNOR PITT DO K V23.9 SUPERVISION OF UNSPECIFIED HIGH-RISK 02/25/2010 MAYNOR PITT DO 345.10 SEIZURE DISORDER GENERALIZED CONVULSIVE GRAND MAL 02/25/2010 ANASTACIO PITT DOA K 794.5 NONSPECIFIC ABNORMAL RESULTS OF FUNCTION STUDIES, THYROID 02/25/2010 ANASTACIO PITT DOA K V23.3 HIGH-RISK WITH GRAND MULTIPARITY 02/25/2010 SWEETIE ANGULO MAYNOR K V23.9 SUPERVISION OF UNSPECIFIED HIGH-RISK 02/25/2010 ANASTACIO PITT DOA K 345.10 SEIZURE DISORDER GENERALIZED CONVULSIVE GRAND MAL 02/25/2010 NAASTACIO PITT DOA K 794.5 NONSPECIFIC ABNORMAL RESULTS OF FUNCTION STUDIES, THYROID 02/25/2010 ANASTACIO PITT DOA K V23.3 HIGH-RISK WITH GRAND MULTIPARITY 02/25/2010 SWEETIE ANGULO MAYNOR K V23.9 SUPERVISION OF UNSPECIFIED HIGH-RISK 02/25/2010 SANDY DEJESUS APRN R 345.10 SEIZURE DISORDER GENERALIZED CONVULSIVE GRAND MAL 02/25/2010 DEJESUS SANDY BINGHAM R 794.5 NONSPECIFIC ABNORMAL RESULTS OF FUNCTION STUDIES, THYR OID 02/25/2010 DEJESUSSANDY ROSENTHAL APRN R V23.3 HIGH-RISK WITH GRAND MULTIPARITY 02/25/2010 DEJESUS SANDY [place] R V23.9 SUPERVISION OF UNSPECIFIED HIGH-RISK 02/25/2010 ANASTACIO PITT DOA K 345.10 SEIZURE DISORDER GENERALIZED CONVULSIVE GRAND MAL 02/25/2010 ANASTACIO PITT DOA K 794.5 NONSPECIFIC ABNORMAL RESULTS OF FUNCTION STUDIES, THYROID 02/25/2010 ANASTACIO PITT DOA K V23.3 HIGH-RISK WITH GRAND MULTIPARITY 02/25/2010 ANASTACIO PITT DOA K V23.9 SUPERVISION OF UNSPECIFIED HIGH-RISK 02/25/2010 SANDY DEJESUS APRN R 345.10 SEIZURE DISORDER GENERALIZED CONVULSIVE GRAND MAL 02/25/2010 DEJESUS SANDY [place] R 794.5 NONSPECIFIC ABNORMAL RESULTS OF FUNCTION STUDIES, THYR OID 02/25/2010 DEJESUS SANDY [place] R V23.3 HIGH-RISK WITH GRAND MULTIPARITY 02/25/2010 DEJESUS SANDY [place] R V23.9 SUPERVISION OF UNSPECIFIED HIGH-RISK 02/25/2010 ANASTACIO PITT DOA K 345.10 SEIZURE DISORDER GENERALIZED CONVULSIVE GRAND MAL 02/25/2010 ANASTACIO PITT DOA K 794.5 NONSPECIFIC ABNORMAL RESULTS OF FUNCTION STUDIES, THYROID 02/25/2010 PITT DO, MAYNOR K V23.3 HIGH-RISK WITH GRAND MULTIPARITY 02/25/2010 PITT DO MAYNOR K V23.9 SUPERVISION OF UNSPECIFIED HIGH-RISK 02/25/2010 SWEETIE ANGULO MAYNOR K 345.10 SEIZURE DISORDER GENERALIZED CONVULSIVE GRAND MAL 02/25/2010 PITT DO MAYNOR K 794.5 NONSPECIFIC ABNORMAL RESULTS OF FUNCTION STUDIES, THYROID 02/25/2010 PITT DO MAYNOR K V23.3 HIGH-RISK WITH GRAND MULTIPARITY 02/25/2010 PITT DO MAYNOR K V23.9 SUPERVISION OF UNSPECIFIED HIGH-RISK 02/25/2010 LATOYA GALE APRN 345.10 SEIZURE DISORDER GENERALIZED CONVULSIVE GRAND MAL 02/25/2010 LATOYA GALE APRN 794.5 NONSPECIFIC ABNORMAL RESULTS OF FUNCTION STUDIES, THYR OID 02/25/2010 LATOYA GALE APRN V23.3 HIGH-RISK WITH GRAND MULTIPARITY 02/25/2010 CHUCKYLATOYA JAVIER APRN V23.9 SUPERVISION OF UNSPECIFIED HIGH-RISK 02/25/2010 SWEETIE [...] V23.3 HIGH-RISK WITH GRAND MULTIPARITY 02/25/2010 PITT DO MAYNOR K V23.9 SUPERVISION OF UNSPECIFIED HIGH-RISK 02/25/2010 PITT DO MAYNOR K 345.10 SEIZURE DISORDER GENERALIZED CONVULSIVE GRAND MAL 02/25/2010 PITT DO MAYNOR K 794.5 NONSPECIFIC ABNORMAL RESULTS OF FUNCTION STUDIES, THYROID 02/25/2010 PITT DO MAYNOR K V23.3 HIGH-RISK WITH GRAND MULTIPARITY 02/25/2010 PITT DO MAYNOR K V23.9 SUPERVISION OF UNSPECIFIED HIGH-RISK 02/25/2010 LATOYA GALE APRN E 345.10 SEIZURE DISORDER GENERALIZED CONVULSIVE GRAND MAL 02/25/2010 LATOYA GAEL APRN E 794.5 NONSPECIFIC ABNORMAL RESULTS OF FUNCTION STUDIES, THYR OID 02/25/2010 LATOYA GALE APRN E V23.3 HIGH-RISK WITH GRAND MULTIPARITY 02/25/2010 LATOYA GALE APRN V23.9 SUPERVISION OF UNSPECIFIED HIGH-RISK 02/25/2010 SWEETIE ANGULO MAYNOR K 345.10 SEIZURE DISORDER GENERALIZED CONVULSIVE GRAND MAL 02/25/2010 PITT DO MAYNOR K 794.5 NONSPECIFIC ABNORMAL RESULTS OF FUNCTION STUDIES, THYROID 02/25/2010 SWEETIE DO MAYNOR K V23.3 HIGH-RISK WITH GRAND MULTIPARITY 02/25/2010 SWEETIE ANGULO MAYNOR K V23.9 SUPERVISION OF UNSPECIFIED HIGH-RISK 02/25/2010 SANDY DEJESUS APRN 345.10 SEIZURE DISORDER GENERALIZED CONVULSIVE GRAND MAL 02/25/2010 SANDY DEJESUS APRN 794.5 NONSPECIFIC ABNORMAL RESULTS OF FUNCTION STUDIES, THYR OID 02/25/2010 SANDY DEJESUS APRN V23.3 HIGH-RISK WITH GRAND MULTIPARITY 02/25/2010 SANDY DEJESUS APRN V23.9 SUPERVISION OF UNSPECIFIED HIGH-RISK 02/25/2010 GHASSAN KINGSLEYF, TEJAL [place] 345.10 SEIZURE DISORDER GENERALIZED CONVULSIVE GRAND MAL 02/25/2010 GHASSAN KINGSLEYF, TEJAL [place] 794.5 NONSPECIFIC ABNORMAL RESULTS OF FUNCTION STUDIES, THYR OID 02/25/2010 GHASSAN LACIEMF, TEJAL W V23.3 HIGH-RISK WITH GRAND MULTIPARITY 02/25/2010 GHASSAN TEETEEF, TEJAL W V23.9 SUPERVISION OF UNSPECIFIED HIGH-RISK 02/25/2010 SWEETIE DO MAYNOR K 345.10 SEIZURE DISORDER GENERALIZED CONVULSIVE GRAND MAL 02/25/2010 PITT DO MAYNOR K 794.5 NONSPECIFIC ABNORMAL RESULTS OF FUNCTION STUDIES, THYROID 02/25/2010 PITT DO MAYNOR K V23.3 HIGH-RISK WITH GRAND MULTIPARITY 02/25/2010 PITT DO MAYNOR K V23.9 SUPERVISION OF UNSPECIFIED HIGH-RISK 02/25/2010 ISAAC PARISH RN 345. 10 SEIZURE DISORDER GENERALIZED CONVULSIVE GRAND MAL 02/25/2010 ISAAC PARISH RN 794. 5 NONSPECIFIC ABNORMAL RESULTS OF FUNCTION STUDIES, THYROID 02/25/2010 ISAAC PARISH RN V23. 3 HIGH-RISK WITH GRAND MULTIPARITY 02/25/2010 ISAAC PARISH RN V23. 9 SUPERVISION OF UNSPECIFIED HIGH-RISK 02/25/2010 ISAAC PARISH RN 345. 10 SEIZURE DISORDER GENERALIZED CONVULSIVE GRAND MAL 02/25/2010 ISAAC PARISH RN 794. 5 NONSPECIFIC ABNORMAL RESULTS OF FUNCTION STUDIES, THYROID 02/25/2010 ISAAC PARISH RN V23. 3 HIGH-RISK WITH GRAND MULTIPARITY 02/25/2010 ISAAC PARISH RN V23. 9 SUPERVISION OF UNSPECIFIED HIGH-RISK 02/25/2010 ISAAC PARISH RN 345. 10 SEIZURE DISORDER GENERALIZED CONVULSIVE GRAND MAL 02/25/2010 ISAAC PARISH RN 794. 5 NONSPECIFIC ABNORMAL RESULTS OF FUNCTION STUDIES, THYROID 02/25/2010 ISAAC PARISH RN V23. 3 HIGH-RISK WITH GRAND MULTIPARITY 02/25/2010 ISAAC PARISH RN V23. 9 SUPERVISION OF UNSPECIFIED HIGH-RISK 02/25/2010 ISAAC PARISH RN 345. 10 SEIZURE DISORDER GENERALIZED CONVULSIVE GRAND MAL 02/25/2010 ISAAC PARISH RN 794. 5 NONSPECIFIC ABNORMAL RESULTS OF FUNCTION STUDIES, THYROID 02/25/2010 ISAAC PARISH RN V23. 3 HIGH-RISK WITH GRAND MULTIPARITY 02/25/2010 ISAAC PARISH RN V23. 9 SUPERVISION OF UNSPECIFIED HIGH-RISK 02/25/2010 MAYNOR PITT DO 345.10 SEIZURE DISORDER GENERALIZED CONVULSIVE GRAND MAL 02/25/2010 MAYNOR PITT DO K 794.5 NONSPECIFIC ABNORMAL RESULTS OF FUNCTION STUDIES, THYROID 02/25/2010 MAYNOR PITT DO K V23.3 HIGH-RISK WITH GRAND MULTIPARITY 02/25/2010 ANASTACIO PITT DOA K V23.9 SUPERVISION OF UNSPECIFIED HIGH-RISK 02/25/2010 MAYNOR PITT DO K 345.10 SEIZURE DISORDER GENERALIZED CONVULSIVE GRAND MAL 02/25/2010 MAYNOR PITT DO K 794.5 NONSPECIFIC ABNORMAL RESULTS OF FUNCTION STUDIES, THYROID 02/25/2010 MAYNOR PITT DO V23.3 HIGH-RISK WITH GRAND MULTIPARITY 02/25/2010 MAYNOR PITT DO V23.9 SUPERVISION OF UNSPECIFIED HIGH-RISK 02/25/2010 MAYNOR PITT DO 345.10 SEIZURE DISORDER GENERALIZED CONVULSIVE GRAND MAL 02/25/2010 MAYNOR PITT DO 794.5 NONSPECIFIC ABNORMAL RESULTS OF FUNCTION STUDIES, THYROID 02/25/2010 MAYNOR PITT DO V23.3 HIGH-RISK WITH GRAND MULTIPARITY 02/25/2010 MAYNOR PITT DO V23.9 SUPERVISION OF UNSPECIFIED HIGH-RISK 02/25/2010 ISAAC PARISH RN 345. 10 SEIZURE DISORDER GENERALIZED CONVULSIVE GRAND MAL 02/25/2010 ISAAC PARISH RN 794. 5 NONSPECIFIC ABNORMAL RESULTS OF FUNCTION STUDIES, THYROID 02/25/2010 ISAAC PARISH RN V23. 3 HIGH-RISK WITH GRAND MULTIPARITY 02/25/2010 ISAAC PARISH RN V23. 9 SUPERVISION OF UNSPECIFIED HIGH-RISK 02/25/2010 ISAAC PARISH RN 345. 10 SEIZURE DISORDER GENERALIZED CONVULSIVE GRAND MAL 02/25/2010 ISAAC PARISH RN 794. 5 NONSPECIFIC ABNORMAL RESULTS OF FUNCTION STUDIES, THYROID 02/25/2010 ISAAC PARISH RN V23. 3 HIGH-RISK WITH GRAND MULTIPARITY 02/25/2010 ISAAC PARISH RN V23. 9 SUPERVISION OF UNSPECIFIED HIGH-RISK 02/25/2010 ISAAC PARISH RN 345. 10 SEIZURE DISORDER GENERALIZED CONVULSIVE GRAND MAL 02/25/2010 ISAAC PARISH RN 794. 5 NONSPECIFIC ABNORMAL RESULTS OF FUNCTION STUDIES, THYROID 02/25/2010 ISAAC PARISH RN E V23. 3 HIGH-RISK WITH GRAND MULTIPARITY 02/25/2010 ISAAC PARISH RN E V23. 9 SUPERVISION OF UNSPECIFIED HIGH-RISK 08/13/2010 Ot 644.13 THR EAT LABOR NEC- ANTEPAR 08/14/2010 Ot 644.03 THR T OCTAVIA LABOR- ANTEPART 08/27/2010 Ot 644.03 THR T OCTAVIA LABOR- ANTEPART 09/03/2010 COREEN MCCARTY, MELISA 646. 60 COMPL OF - UTI 09/03/2010 COREEN MCCARTY, MELISA 646. 60 COMPL OF - UTI 09/03/2010 MELISA ANGELA MD 646. 60 COMPL OF - UTI 09/03/[address] OF - UTI 09/03/[address] OF - UTI 09/03/[address] OF - UTI 09/03/2010 MAYNOR PITT DO [...] DO 646.60 COMPL OF - UTI 09/03/2010 LATOYA GALE APRN 646.60 COMPL OF - UTI 09/03/2010 MAYNOR PITT DO 646.60 COMPL OF - UTI 09/03/2010 MAYNOR PITT DO 646.60 COMPL OF - UTI 09/03/2010 MAYNOR PITT DO 646.60 COMPL OF - UTI 09/03/2010 LATOYA GALE APRN 646.60 COMPL OF - UTI 09/03/2010 MAYNOR PITT DO 646.60 COMPL OF - UTI 09/03/2010 SANDY DEJESUS APRN 646.60 COMPL OF - UTI 09/03/2010 TEJAL FISH 646.60 COMPL OF - UTI 09/03/2010 MAYNOR PITT DO 646.60 COMPL OF - UTI 09/03/2010 ISAAC PARISH RN E 646. 60 COMPL OF - UTI 09/03/2010 ISAAC PARISH RN 646. 60 COMPL OF - UTI 09/03/2010 ISAAC PARISH RN E 646. 60 COMPL OF - UTI 09/03/2010 ISAAC PARISH RN 646. 60 COMPL OF - UTI 09/03/2010 MAYNOR PITT DO 646.60 COMPL OF - UTI 09/03/2010 MAYNOR PITT DO 646.60 COMPL OF - UTI 09/03/2010 MAYNOR PITT DO 646.60 COMPL OF - UTI 09/03/2010 ISAAC PARISH RN E 646. 60 COMPL OF - UTI 09/03/2010 ISAAC PARISH RN 646. 60 COMPL OF - UTI 09/03/2010 ISAAC PARISH RN E 646. 60 COMPL OF - UTI 09/19/2010 Ot 285.1 AC P OSTHEMORRHAG ANEMIA 09/19/2010 Ot 345.90 EPI LEPSY UNSPEC W/O MENTION INTRACTABLE 09/19/2010 Ot 648.22 ANE TRIP-DELIVERED W P/P 09/19/2010 Ot 649.41 EPI LEPSY COMP PREG/CHILDBIRTH/PUERPERIUM 09/19/2010 Ot 666.12 POS TPA HEM NEC- DEL W P/P 09/19/2010 Ot V27.0 DELI MESSI-SINGLE LIVEBORN 01/12/2011 MELISA ANGELA MD 300. 00 ANXIETY STATE UNSPECIFIED 01/12/2011 MELISA ANGELA MD 311 DEPRESSIVE DISORDER NOT ELSEWHERE CLASSIFIED 01/12/2011 MELISA ANGELA MD 300. 00 ANXIETY STATE UNSPECIFIED 01/12/2011 MELISA ANGELA MD 311 DEPRESSIVE DISORDER NOT ELSEWHERE CLASSIFIED 01/12/2011 MELISA ANGELA MD 300. 00 ANXIETY STATE UNSPECIFIED 01/12/2011 MELISA ANGELA MD 311 DEPRESSIVE DISORDER NOT ELSEWHERE CLASSIFIED 01/12/2011 300.00 ANX IETY STATE UNSPECIFIED 01/12/2011 311 DEPRES SIVE DISORDER NOT ELSEWHERE CLASSIFIED 01/12/2011 300.00 ANX IETY STATE UNSPECIFIED 01/12/2011 311 DEPRES SIVE DISORDER NOT ELSEWHERE CLASSIFIED 01/12/2011 300.00 ANX IETY STATE UNSPECIFIED 01/12/2011 311 DEPRES SIVE DISORDER NOT ELSEWHERE CLASSIFIED 01/12/2011 MAYNOR PITT DO 300.00 ANXIETY STATE UNSPECIFIED 01/12/2011 MAYNOR PITT DO 311 DEPRESSIVE DISORDER NOT ELSEWHERE CLASSIFIED 01/12/2011 MAYNOR PITT DO 300.00 ANXIETY STATE UNSPECIFIED 01/12/2011 MAYNOR PITT DO 311 DEPRESSIVE DISORDER NOT ELSEWHERE CLASSIFIED 01/12/2011 MAYNOR PITT DO 300.00 ANXIETY STATE UNSPECIFIED 01/12/2011 PITT DO, MAYNOR K 311 DEPRESSIVE DISORDER NOT ELSEWHERE CLASSIFIED 01/12/2011 DEJESUS VMWARE CONSULTANT, SANDY R 300.00 ANXIETY STATE UNSPECIFIED 01/12/2011 DEJESUS VMWARE CONSULTANT, SANDY R 311 DEPRESSIVE DISORDER NOT ELSEWHERE CLASSIFIED 01/12/2011 PITT DO, MAYNOR K 300.00 ANXIETY STATE UNSPECIFIED 01/12/2011 PITT DO, MAYNOR K 311 DEPRESSIVE DISORDER NOT ELSEWHERE CLASSIFIED 01/12/2011 DEJESUS VMWARE CONSULTANT, SANDY R 300.00 ANXIETY STATE UNSPECIFIED 01/12/2011 DEJESUS VMWARE CONSULTANT, SANDY R 311 DEPRESSIVE DISORDER NOT ELSEWHERE CLASSIFIED 01/12/2011 PITT DO, MAYNOR K 300.00 ANXIETY STATE UNSPECIFIED 01/12/2011 PITT DO, MAYNOR K 311 DEPRESSIVE DISORDER NOT ELSEWHERE CLASSIFIED 01/12/2011 PITT DO, MAYNOR K 300.00 ANXIETY STATE UNSPECIFIED 01/12/2011 PITT DO, MAYNOR K 311 DEPRESSIVE DISORDER NOT ELSEWHERE CLASSIFIED 01/12/2011 HELLWIG VMWARE CONSULTANT, LATOYA E 300.00 ANXIETY STATE UNSPECIFIED 01/12/2011 HELLWIG VMWARE CONSULTANT, LATOYA E 311 DEPRESSIVE DISORDER NOT ELSEWHERE [...] DEPRESSIVE DISORDER NOT ELSEWHERE CLASSIFIED 01/12/2011 HELLWIG VMWARE CONSULTANT LATOYA E 300.00 ANXIETY STATE UNSPECIFIED 01/12/2011 HELLWIG VMWARE CONSULTANT, LATOYA E 311 DEPRESSIVE DISORDER NOT ELSEWHERE CLASSIFIED 01/12/2011 PITT DO, MAYNOR K 300.00 ANXIETY STATE UNSPECIFIED 01/12/2011 PITT DO, MAYNOR K 311 DEPRESSIVE DISORDER NOT ELSEWHERE CLASSIFIED 01/12/2011 DEJESUS VMWARE CONSULTANT, SANDY R 300.00 ANXIETY STATE UNSPECIFIED 01/12/2011 DEJESUS VMWARE CONSULTANT, SANDY R 311 DEPRESSIVE DISORDER NOT ELSEWHERE CLASSIFIED 01/12/2011 GHASSAN LCMF, TEJAL W 300.00 ANXIETY STATE UNSPECIFIED 01/12/2011 GHASSAN LCMF, TEJAL W 311 DEPRESSIVE DISORDER NOT ELSEWHERE CLASSIFIED 01/12/2011 PITT DO, MAYNOR K 300.00 ANXIETY STATE UNSPECIFIED 01/12/2011 PITT DO, MAYNOR K 311 DEPRESSIVE DISORDER NOT ELSEWHERE CLASSIFIED 01/12/2011 ISAAC PARISH RN E 300. 00 ANXIETY STATE UNSPECIFIED 01/12/2011 ISAAC PARISH RN E 311 DEPRESSIVE DISORDER NOT ELSEWHERE CLASSIFIED 01/12/2011 ISAAC PARISH RN E 300. 00 ANXIETY STATE UNSPECIFIED 01/12/2011 ISAAC PARISH RN E 311 DEPRESSIVE DISORDER NOT ELSEWHERE CLASSIFIED 01/12/2011 ISAAC PARISH RN E 300. 00 ANXIETY STATE UNSPECIFIED 01/12/2011 ISAAC PARISH RN E 311 DEPRESSIVE DISORDER NOT ELSEWHERE CLASSIFIED 01/12/2011 ISAAC PARISH RN 300. 00 ANXIETY STATE UNSPECIFIED 01/12/2011 ISAAC PARISH RN [...] ELSEWHERE CLASSIFIED 01/12/2011 ISAAC PARISH RN E 300. 00 ANXIETY STATE UNSPECIFIED 01/12/2011 ISAAC PARISH RN E 311 DEPRESSIVE DISORDER NOT ELSEWHERE CLASSIFIED 01/12/2011 ISAAC PARISH RN E 300. 00 ANXIETY STATE UNSPECIFIED 01/12/2011 ISAAC PARISH RN E 311 DEPRESSIVE DISORDER NOT ELSEWHERE CLASSIFIED 01/12/2011 ISAAC PARISH RN E 300. 00 ANXIETY STATE UNSPECIFIED 01/12/2011 ISAAC PARISH RN E 311 DEPRESSIVE DISORDER NOT ELSEWHERE CLASSIFIED 03/19/2011 MELISA ANGELA MD 564. 00 CONSTIPATION 03/19/2011 MELISA ANGELA MD 599. 0 URINARY TRACT INFECTION 03/19/2011 MELISA ANGELA MD 737. 30 SCOLIOSIS (AND KYPHOSCOLIOSIS) IDIOPATHIC 03/19/2011 MEILSA ANGELA MD 780. 93 MEMORY LOSS 03/19/2011 MELISA ANGELA MD 788. 41 URINARY FREQUENCY 03/19/2011 MELISA ANGELA MD 564. 00 CONSTIPATION 03/19/2011 MELISA ANGELA MD 599. 0 URINARY TRACT INFECTION 03/19/2011 MELISA ANGELA MD 737. 30 SCOLIOSIS (AND KYPHOSCOLIOSIS) IDIOPATHIC 03/19/2011 MELISA ANGELA MD 780. 93 MEMORY LOSS 03/19/2011 MELISA ANGELA MD 788. 41 URINARY FREQUENCY 03/19/2011 MELISA ANGELA MD 564. 00 CONSTIPATION 03/19/2011 MELISA ANGELA MD 599. 0 URINARY TRACT INFECTION 03/19/2011 MELISA ANGELA MD 737. 30 SCOLIOSIS (AND KYPHOSCOLIOSIS) IDIOPATHIC 03/19/2011 MELISA ANGELA MD 780. 93 MEMORY LOSS 03/19/2011 MELISA ANGELA MD 788. 41 URINARY FREQUENCY 03/19/2011 564.00 CON STIPATION 03/19/2011 599.0 URIN SAGRARIO TRACT INFECTION 03/19/2011 737.30 SCO LIOSIS (AND KYPHOSCOLIOSIS) IDIOPATHIC 03/19/2011 780.93 MEM ORY LOSS 03/19/2011 788.41 URI NARY FREQUENCY 03/19/2011 564.00 CON STIPATION 03/19/2011 599.0 URIN SAGRARIO TRACT INFECTION 03/19/2011 737.30 SCO LIOSIS (AND KYPHOSCOLIOSIS) IDIOPATHIC 03/19/2011 780.93 MEM ORY LOSS 03/19/2011 788.41 URI NARY FREQUENCY 03/19/2011 564.00 CON STIPATION 03/19/2011 599.0 URIN SAGRARIO TRACT INFECTION 03/19/2011 737.30 SCO LIOSIS (AND KYPHOSCOLIOSIS) IDIOPATHIC 03/19/2011 780.93 MEM ORY LOSS 03/19/2011 788.41 URI NARY FREQUENCY 03/19/2011 PITT DO, MAYNOR K 564.00 CONSTIPATION 03/19/2011 PITT DO, MAYNOR K 599.0 URINARY TRACT INFECTION 03/19/2011 PITT DO MAYNOR K 737.30 SCOLIOSIS (AND KYPHOSCOLIOSIS) IDIOPATHIC 03/19/2011 PITT DO MAYNOR K 780.93 MEMORY LOSS 03/19/2011 PITT DO MAYNOR K 788.41 URINARY FREQUENCY 03/19/2011 PITT DO, MAYNOR K 564.00 CONSTIPATION 03/19/2011 PITT DO MAYNOR K 599.0 URINARY TRACT INFECTION 03/19/2011 [...] DO, MAYNOR K 788.41 URINARY FREQUENCY 03/19/2011 DEJESUS VMWARE CONSULTANT, SANDY R 564.00 CONSTIPATION 03/19/2011 DEJESUS VMWARE CONSULTANT, SANDY R 599.0 URINARY TRACT INFECTION 03/19/2011 DEJESUS VMWARE CONSULTANT, SANDY R 737.30 SCOLIOSIS (AND KYPHOSCOLIOSIS) IDIOPATHIC 03/19/2011 DEJESUS VMWARE CONSULTANT, SANDY R 780.93 MEMORY LOSS 03/19/2011 DEJESUS VMWARE CONSULTANTSANDY R 788.41 URINARY FREQUENCY 03/19/2011 PITT DO, MAYNOR K 564.00 CONSTIPATION 03/19/2011 PITT DO, MAYNOR K 599.0 URINARY TRACT INFECTION 03/19/2011 PITT DO, MAYNOR K 737.30 SCOLIOSIS (AND KYPHOSCOLIOSIS) IDIOPATHIC 03/19/2011 PITT DO, MAYNOR K 780.93 MEMORY LOSS 03/19/2011 PITT DO, MAYNOR K 788.41 URINARY FREQUENCY 03/19/2011 DEJESUS VMWARE CONSULTANT, SANDY R 564.00 CONSTIPATION 03/19/2011 DEJESUS VMWARE CONSULTANT, SANDY R 599.0 URINARY TRACT INFECTION 03/19/2011 DEJESUS VMWARE CONSULTANT, SANDY R 737.30 SCOLIOSIS (AND KYPHOSCOLIOSIS) IDIOPATHIC 03/19/2011 DEJESUS VMWARE CONSULTANT, SANDY R 780.93 MEMORY LOSS 03/19/2011 DEJESUS VMWARE CONSULTANT, SANDY R 788.41 URINARY FREQUENCY 03/19/2011 PITT DO, [...] DO, MAYNOR K 788.41 URINARY FREQUENCY 03/19/2011 HELWIG VMWARE CONSULTANT LATOYA E 564.00 CONSTIPATION 03/19/2011 HELWIG VMWARE CONSULTANT LATOYA E 599.0 URINARY TRACT INFECTION 03/19/2011 HELWIG VMWARE CONSULTANT LATOYA E 737.30 SCOLIOSIS (AND KYPHOSCOLIOSIS) IDIOPATHIC 03/19/2011 CHUCKYWIG VMWARE CONSULTANTGIDEONE E 780.93 MEM[facility]/19/2011 [facility] LATOYA E 788.41 URINARY FREQUENCY 03/19/2011 PITT DO, [...] DO, MAYNOR K 788.41 URINARY FREQUENCY 03/19/2011 HELWIG VMWARE CONSULTANT LATOYA E 564.00 CONSTIPATION 03/19/2011 LATOYA GALE APRN E 599.0 URINARY TRACT INFECTION 03/19/2011 CHUCKYLATOYA SHERMAN APRN E 737.30 SCOLIOSIS (AND KYPHOSCOLIOSIS) IDIOPATHIC 03/19/2011 CHUCKYLATOYA SHERMAN APRN E 780.93 MEMORY LOSS 03/19/2011 CHUCKYLATOYA SHERMAN APRN E 788.41 URINARY FREQUENCY 03/19/2011 PITT DO, MAYNOR K 564.00 CONSTIPATION 03/19/2011 PITT DO, MAYNOR K 599.0 URINARY TRACT INFECTION 03/19/2011 PITT DO MAYNOR K 737.30 SCOLIOSIS (AND KYPHOSCOLIOSIS) IDIOPATHIC 03/19/2011 PITT DO, MAYNOR K 780.93 MEMORY LOSS 03/19/2011 PITT DO, MAYNOR K 788.41 URINARY FREQUENCY 03/19/2011 SANDY DEJESUS APRN 564.00 CONSTIPATION 03/19/2011 SANDY DEJESUS APRN 599.0 URINARY TRACT INFECTION 03/19/2011 SANDY DEJESUS APRN 737.30 SCOLIOSIS (AND KYPHOSCOLIOSIS) IDIOPATHIC 03/19/2011 SANDY DEJESUS APRN 780.93 MEMORY LOSS 03/19/2011 DEJESUSSANDY ROSENTHAL APRN 788.41 URINARY FREQUENCY 03/19/2011 GHASSAN TEETEEF, TEJAL W 564.00 CONSTIPATION 03/19/2011 GHASSAN LACIEMF, TEJAL W 599.0 URINARY TRACT INFECTION 03/19/2011 GHASSAN LACIEMF, TEJAL W 737.30 SCOLIOSIS (AND KYPHOSCOLIOSIS) IDIOPATHIC 03/19/2011 GHASSAN LACIEMF, TEJAL W 780.93 MEMORY LOSS 03/19/2011 GHASSAN LACIEMF, TEJAL W 788.41 URINARY FREQUENCY 03/19/2011 PITT DO, MAYNOR K 564.00 CONSTIPATION 03/19/2011 PITT DO, MAYNOR K 599.0 URINARY TRACT INFECTION 03/19/2011 PITT DO MAYNOR K 737.30 SCOLIOSIS (AND KYPHOSCOLIOSIS) IDIOPATHIC 03/19/2011 PITT DO, MAYNOR K 780.93 MEMORY LOSS 03/19/2011 PITT DO, MAYNOR K 788.41 URINARY FREQUENCY 03/19/2011 ISAAC PARISH RN 564. 00 CONSTIPATION 03/19/2011 ISAAC PARISH RN 599. 0 URINARY TRACT INFECTION 03/19/2011 ISAAC PARISH RN E 737. 30 SCOLIOSIS (AND KYPHOSCOLIOSIS) IDIOPATHIC 03/19/2011 ISAAC PARISH RN E 780. 93 MEMORY LOSS 03/19/2011 ISAAC PARISH RN E 788. 41 URINARY FREQUENCY 03/19/2011 ISAAC PARISH RN E 564. 00 CONSTIPATION 03/19/2011 ISAAC PARISH RN E 599. 0 URINARY TRACT INFECTION 03/19/2011 ISAAC PARISH RN E 737. 30 SCOLIOSIS (AND KYPHOSCOLIOSIS) IDIOPATHIC 03/19/2011 ISAAC PARISH RN E 780. 93 MEMORY LOSS 03/19/2011 ISAAC PARISH RN E 788. 41 URINARY FREQUENCY 03/19/2011 ISAAC PARISH RN E 564. 00 CONSTIPATION 03/19/2011 ISAAC PARISH RN E 599. 0 URINARY TRACT INFECTION 03/19/2011 ISAAC PARISH RN E 737. 30 SCOLIOSIS (AND KYPHOSCOLIOSIS) IDIOPATHIC 03/19/2011 ISAAC PARISH RN E 780. 93 MEMORY LOSS 03/19/2011 ISAAC PARISH RN E 788. 41 URINARY FREQUENCY 03/19/2011 ISAAC PARISH RN E 564. 00 CONSTIPATION 03/19/2011 ISAAC PARISH RN E 599. 0 URINARY TRACT INFECTION 03/19/2011 ISAAC PARISH RN E 737. 30 SCOLIOSIS (AND KYPHOSCOLIOSIS) IDIOPATHIC 03/19/2011 ISAAC PARISH RN E 780. 93 MEMORY LOSS 03/19/2011 ISAAC PARISH RN E 788. 41 URINARY FREQUENCY 03/19/2011 PITT DO, MAYNOR K [...] DO, MAYNOR K 788.41 URINARY FREQUENCY 03/19/2011 ANASTACIO PITT DOA K 564.00 CONSTIPATION 03/19/2011 ANASTACIO PITT DOA K 599.0 URINARY TRACT INFECTION 03/19/2011 SWEETIE ANGULO MAYNOR K 737.30 SCOLIOSIS (AND KYPHOSCOLIOSIS) IDIOPATHIC 03/19/2011 SWEETIE ANGULO MAYNOR K 780.93 MEMORY LOSS 03/19/2011 ANASTACIO PITT DOA K 788.41 URINARY FREQUENCY 03/19/2011 ISAAC PARISH RN E 564. 00 CONSTIPATION 03/19/2011 ISAAC PARISH RN E 599. 0 URINARY TRACT INFECTION 03/19/2011 ISAAC PARISH RN E 737. 30 SCOLIOSIS (AND KYPHOSCOLIOSIS) IDIOPATHIC 03/19/2011 ISAAC PARISH RN E 780. 93 MEMORY LOSS 03/19/2011 ISAAC PARISH RN E 788. 41 URINARY FREQUENCY 03/19/2011 ISAAC PARISH RN E 564. 00 CONSTIPATION 03/19/2011 ISAAC PARISH RN E 599. 0 URINARY TRACT INFECTION 03/19/2011 ISAAC PARISH RN E 737. 30 SCOLIOSIS (AND KYPHOSCOLIOSIS) IDIOPATHIC 03/19/2011 МАРИНА RNLEOBARDOISAAC E 780. 93 MEMORY LOSS 03/19/2011 МАРИНА RNISAAC E 788. 41 URINARY FREQUENCY 03/19/2011 ISAAC PARISH RN E 564. 00 CONSTIPATION 03/19/2011 LEOBARDO PARISH RNISTA E 599. 0 URINARY TRACT INFECTION 03/19/2011 LEOBARDO PARISH RNISTA E 737. 30 SCOLIOSIS (AND KYPHOSCOLIOSIS) IDIOPATHIC 03/19/2011 LEOBARDO PARISH RNISTA E 780. 93 MEMORY LOSS 03/19/2011 ISAAC PARISH RN E 788. 41 URINARY FREQUENCY 08/24/2011 MELISA ANGELA MD 382. 00 ACUTE SUPPURATIVE OTITIS MEDIA WITHOUT SPONTANEOUS RUPTURE OF EARDRUM 08/24/2011 MELISA ANGELA MD 382. 00 ACUTE SUPPURATIVE OTITIS MEDIA WITHOUT SPONTANEOUS RUPTURE OF EARDRUM 08/24/2011 MELISA ANGELA MD 382. 00 ACUTE SUPPURATIVE OTITIS MEDIA WITHOUT SPONTANEOUS RUPTURE OF EARDRUM 08/24/2011 382.00 ACU TE SUPPURATIVE OTITIS MEDIA WITHOUT SPONTANEOUS RUPTURE OF EARDRUM 08/24/2011 382.00 ACU TE SUPPURATIVE OTITIS MEDIA WITHOUT SPONTANEOUS RUPTURE OF EARDRUM 08/24/2011 382.00 ACU TE SUPPURATIVE OTITIS MEDIA WITHOUT SPONTANEOUS RUPTURE OF EARDRUM 08/24/2011 PITT DO, MAYNOR K 382.00 ACUTE SUPPURATIVE OTITIS MEDIA WITHOUT SPONTANEOUS RUPTURE OF EARDRUM 08/24/2011 PITT DO, MAYNOR K 382.00 ACUTE SUPPURATIVE OTITIS MEDIA WITHOUT SPONTANEOUS RUPTURE OF EARDRUM 08/24/2011 PITT DO, MAYNOR K 382.00 ACUTE SUPPURATIVE OTITIS MEDIA WITHOUT SPONTANEOUS RUPTURE OF EARDRUM 08/24/2011 SANDY DEJESUS APRN 382.00 ACUTE SUPPURATIVE OTITIS MEDIA WITHOUT S PONTANEOUS RUPTURE OF EARDRUM 08/24/2011 PITT DO, MAYNOR K 382.00 ACUTE SUPPURATIVE OTITIS MEDIA WITHOUT SPONTANEOUS RUPTURE OF EARDRUM 08/24/2011 SANDY DEJESUS APRN 382.00 ACUTE SUPPURATIVE OTITIS MEDIA WITHOUT S PONTANEOUS RUPTURE OF EARDRUM 08/24/2011 PITT DO, MAYNOR K 382.00 ACUTE SUPPURATIVE OTITIS MEDIA WITHOUT SPONTANEOUS RUPTURE OF EARDRUM 08/24/2011 PITT DO, MAYNOR K 382.00 ACUTE SUPPURATIVE OTITIS MEDIA WITHOUT SPONTANEOUS RUPTURE OF EARDRUM 08/24/2011 LATOYA GALE APRN 382.00 ACUTE SUPPURATIVE OTITIS MEDIA WITHOUT S PONTANEOUS RUPTURE OF EARDRUM 08/24/2011 PITT DO, MAYNOR K 382.00 ACUTE SUPPURATIVE OTITIS MEDIA WITHOUT SPONTANEOUS RUPTURE OF EARDRUM 08/24/2011 PITT DO, MYANOR K 382.00 ACUTE SUPPURATIVE OTITIS MEDIA WITHOUT SPONTANEOUS RUPTURE OF EARDRUM 08/24/2011 PITT DO, MAYNOR K 382.00 ACUTE SUPPURATIVE OTITIS MEDIA WITHOUT SPONTANEOUS RUPTURE OF EARDRUM 08/24/2011 LATOYA GALE APRN 382.00 ACUTE SUPPURATIVE OTITIS MEDIA WITHOUT S PONTANEOUS RUPTURE OF EARDRUM 08/24/2011 PITT DO, MAYNOR K 382.00 ACUTE SUPPURATIVE OTITIS MEDIA WITHOUT SPONTANEOUS RUPTURE OF EARDRUM 08/24/2011 SANDY DEJESUS APRN 382.00 ACUTE SUPPURATIVE OTITIS MEDIA WITHOUT S PONTANEOUS RUPTURE OF EARDRUM 08/24/2011 TEJAL FISH 382.00 ACUTE SUPPURATIVE OTITIS MEDIA WITHOUT S PONTANEOUS RUPTURE OF EARDRUM 08/24/2011 PITT DOMAYNOR K 382.00 ACUTE SUPPURATIVE OTITIS MEDIA WITHOUT SPONTANEOUS RUPTURE OF EARDRUM 08/24/2011 МАРИНА ROBERT, ISAAC E 382. 00 ACUTE SUPPURATIVE OTITIS MEDIA WITHOUT SPONTANEOUS RUPTURE OF EARDRUM 08/24/2011 ISAAC PARISH RN E 382. 00 ACUTE SUPPURATIVE OTITIS MEDIA WITHOUT SPONTANEOUS RUPTURE OF EARDRUM 08/24/2011 МАРИНА ROBERT, ISAAC E 382. 00 ACUTE SUPPURATIVE OTITIS MEDIA WITHOUT SPONTANEOUS RUPTURE OF EARDRUM 08/24/2011 ISAAC PARISH RN E 382. 00 ACUTE SUPPURATIVE OTITIS MEDIA WITHOUT SPONTANEOUS RUPTURE OF EARDRUM 08/24/2011 MAYNOR PITT DO K 382.00 ACUTE SUPPURATIVE OTITIS MEDIA WITHOUT SPONTANEOUS RUPTURE OF EARDRUM 08/24/2011 ANASTACIO PITT DOA K 382.00 ACUTE SUPPURATIVE OTITIS MEDIA WITHOUT SPONTANEOUS RUPTURE OF EARDRUM 08/24/2011 MAYNOR PITT DO K 382.00 ACUTE SUPPURATIVE OTITIS MEDIA WITHOUT SPONTANEOUS RUPTURE OF EARDRUM 08/24/2011 ISAAC PARISH RN E 382. 00 ACUTE SUPPURATIVE OTITIS MEDIA WITHOUT SPONTANEOUS RUPTURE OF EARDRUM 08/24/2011 ISAAC PARISH RN E 382. 00 ACUTE SUPPURATIVE OTITIS MEDIA WITHOUT SPONTANEOUS RUPTURE OF EARDRUM 08/24/2011 ISAAC PARISH RN E 382. 00 ACUTE SUPPURATIVE OTITIS MEDIA WITHOUT SPONTANEOUS RUPTURE OF EARDRUM 10/15/2011 MELISA ANGELA MD V58. 69 taking high-risk medication 10/15/2011 MELISA ANGELA MD V58. 69 taking high-risk medication 10/15/2011 MELISA ANGELA MD V58. 69 taking high-risk medication 10/15/2011 V58.69 titi ing high-risk medication 10/15/2011 V58.69 titi ing high-risk medication 10/15/2011 V58.69 titi ing high-risk medication 10/15/2011 MAYNOR PITT DO V58.69 taking high-risk medication 10/15/2011 MAYNOR PITT DO V58.69 taking high-risk medication 10/15/2011 MAYNOR PITT DO V58.69 taking high-risk medication 10/15/2011 SANDY DEJESUS APRN V58.69 taking high-risk medication 10/15/2011 MAYNOR PITT DO V58.69 taking high-risk medication 10/15/2011 SANDY DEJESUS APRN V58.69 taking high-risk medication 10/15/2011 MAYNOR PITT DO K V58.69 taking high-risk medication 10/15/2011 PITT ANASTACIO ANGULOA K V58.69 taking high-risk medication 10/15/2011 LATOYA GALE APRN V58.69 taking high-risk medication 10/15/2011 MAYNOR PITT DO K V58.69 taking high-risk medication 10/15/2011 MAYNOR PITT DO K V58.69 taking high-risk medication 10/15/2011 MAYNOR PITT DO K V58.69 taking high-risk medication 10/15/2011 LATOYA GALE APRN V58.69 taking high-risk medication 10/15/2011 PITT MAYNOR ANGULO K V58.69 taking high-risk medication 10/15/2011 SANDY DEJESUS APRN V58.69 taking high-risk medication 10/15/2011 TEJAL FISH V58.69 taking high-risk medication 10/15/2011 MAYNOR PITT DO K V58.69 taking high-risk medication 10/15/2011 ISAAC PARISH RN E V58. 69 taking high-risk medication 10/15/2011 ISAAC PARISH RN E V58. 69 taking high-risk medication 10/15/2011 ISAAC PARISH RN V58. 69 taking high-risk medication 10/15/2011 ISAAC PARISH RN E V58. 69 taking high-risk medication 10/15/2011 MAYNOR PITT DO K V58.69 taking high-risk medication 10/15/2011 MAYNOR PITT DO K V58.69 taking high-risk medication 10/15/2011 MAYNOR PITT DO K V58.69 taking high-risk medication 10/15/2011 ISAAC PARISH RN E V58. 69 taking high-risk medication 10/15/2011 SIAAC PARISH RN E V58. 69 taking high-risk medication 10/15/2011 ISAAC PARISH RN E V58. 69 taking high-risk medication 11/10/2011 MELISA ANGELA MD 553. 00 FEMORAL HERNIA ON THE RIGHT 11/10/2011 MELISA ANGELA MD V76. 2 Cervical Pap Smear 11/10/2011 MELISA ANGELA MD 553. 00 FEMORAL HERNIA ON THE RIGHT 11/10/2011 MELISA ANGELA MD V76. 2 Cervical Pap Smear 11/10/2011 COREEN MCCARTY, MELISA 553. 00 FEMORAL HERNIA ON THE RIGHT 11/10/2011 COREEN MCCARTY, MELISA V76. 2 Cervical Pap Smear 11/10/2011 553.00 FEM ORAL HERNIA ON THE RIGHT 11/10/2011 V76.2 Cerv ical Pap Smear 11/10/2011 553.00 FEM ORAL HERNIA ON THE RIGHT 11/10/2011 V76.2 Cerv ical Pap Smear 11/10/2011 553.00 FEM ORAL HERNIA ON THE RIGHT 11/10/2011 V76.2 Cerv ical Pap Smear 11/10/2011 PITT DO, MAYNOR K 553.00 FEMORAL HERNIA ON THE RIGHT 11/10/2011 PITT DO, MAYNOR K V76.2 Cervical Pap Smear 11/10/2011 PITT DO, MAYNOR K 553.00 FEMORAL HERNIA ON THE RIGHT 11/10/2011 PITT DO, MAYNOR K V76.2 Cervical Pap Smear 11/10/2011 PITT DO, MAYNOR K 553.00 FEMORAL HERNIA ON THE RIGHT 11/10/2011 PITT DO, MAYNOR K V76.2 Cervical Pap Smear 11/10/2011 DEJESUSSANDY ROSENTHAL APRN 553.00 FEMORAL HERNIA ON THE RIGHT 11/10/2011 DEJESUS SANDY [place] V76.2 Cervical Pap Smear 11/10/2011 PITT DO, MAYNOR K 553.00 FEMORAL HERNIA ON THE RIGHT 11/10/2011 PITT DO, MAYNOR K V76.2 Cervical Pap Smear 11/10/2011 DEJESUS SANDY [place] 553.00 FEMORAL HERNIA ON THE RIGHT 11/10/2011 DEJESUS SANDY [place] V76.2 Cervical Pap Smear 11/10/2011 PITT DO, MAYNOR K 553.00 FEMORAL HERNIA ON THE RIGHT 11/10/2011 PITT DO, MAYNOR K V76.2 Cervical Pap Smear 11/10/2011 PITT DO, MAYNOR K 553.00 FEMORAL HERNIA ON THE RIGHT 11/10/2011 PITT DO, MAYNOR K V76.2 Cervical Pap Smear 11/10/2011 LATOYA GALE APRN E 553.00 FEMORAL HERNIA ON THE RIGHT 11/10/2011 LATOYA GALE APRN V76.2 Cervical Pap Smear 11/10/2011 PITT [...] 553.00 FEMORAL HERNIA ON THE RIGHT 11/10/2011 LATOYA GALE APRN E V76.2 Cervical Pap Smear 11/10/2011 PITT DO, MAYNOR K 553.00 FEMORAL HERNIA ON THE RIGHT 11/10/2011 PITT DO, MAYNOR K V76.2 Cervical Pap Smear 11/10/2011 SANDY DEJESUS APRN 553.00 FEMORAL HERNIA ON THE RIGHT 11/10/2011 SANDY DEJESUS APRN V76.2 Cervical Pap Smear 11/10/2011 GHASSAN [place], TEJAL [place] 553.00 FEMORAL HERNIA ON THE RIGHT 11/10/2011 GHASSAN [place], TEJAL [place] V76.2 Cervical Pap Smear 11/10/2011 PITT DO, MAYNOR K 553.00 FEMORAL HERNIA ON THE RIGHT 11/10/2011 PITT DO, MAYNOR K V76.2 Cervical Pap Smear 11/10/2011 ISAAC PARISH RN 553. 00 FEMORAL HERNIA ON THE RIGHT 11/10/2011 ISAAC PARISH RN V76. 2 Cervical Pap Smear 11/10/2011 ISAAC PARISH RN E 553. 00 FEMORAL HERNIA ON THE RIGHT 11/10/2011 ISAAC PARISH RN E V76. 2 Cervical Pap Smear 11/10/2011 ISAAC PARISH RN E 553. 00 FEMORAL HERNIA ON THE RIGHT 11/10/2011 ISAAC PARISH RN V76. 2 Cervical Pap Smear 11/10/2011 ISAAC PARISH RN E 553. 00 FEMORAL HERNIA ON THE RIGHT 11/10/2011 ISAAC PARISH RN V76. 2 Cervical Pap Smear 11/10/2011 PITT DO, MAYNOR K 553.00 FEMORAL HERNIA ON THE RIGHT 11/10/2011 PITT DO, MAYNOR K V76.2 Cervical Pap Smear 11/10/2011 SWEETIE ANGULO, MAYNOR K 553.00 FEMORAL HERNIA ON THE RIGHT 11/10/2011 SWEETIE ANGULO, MAYNOR K V76.2 Cervical Pap Smear 11/10/2011 PITT DO, MAYNOR K 553.00 FEMORAL HERNIA ON THE RIGHT 11/10/2011 PITT DO, MAYNOR K V76.2 Cervical Pap Smear 11/10/2011 МАРИНА RN, ISAAC E 553. 00 FEMORAL HERNIA ON THE RIGHT 11/10/2011 МАРИНА RN, ISAAC E V76. 2 Cervical Pap Smear 11/10/2011 PARISH RN, ISAAC E 553. 00 FEMORAL HERNIA ON THE RIGHT 11/10/2011 PARISH RN, ISAAC E V76. 2 Cervical Pap Smear 11/10/2011 МАРИНА RN, ISAAC E 553. 00 FEMORAL HERNIA ON THE RIGHT 11/10/2011 МАРИНА ROBERT, ISAAC E V76. 2 Cervical Pap Smear 11/17/2011 MELISA ANGELA MD 345. 90 EPILEPSY AND RECURRENT SEIZURES 11/17/2011 MELISA ANGELA MD 345. 90 EPILEPSY AND RECURRENT SEIZURES 11/17/2011 MELISA ANGELA MD 345. 90 EPILEPSY AND RECURRENT SEIZURES 11/17/2011 345.90 EPI LEPSY AND RECURRENT SEIZURES 11/17/2011 345.90 EPI LEPSY AND RECURRENT SEIZURES 11/17/2011 345.90 EPI LEPSY AND RECURRENT SEIZURES 11/17/2011 MAYNOR PITT DO [...] APRN 345.90 EPILEPSY AND RECURRENT SEIZURES 11/17/2011 GHASSAN KINGSLEYTEJAL 345.90 EPILEPSY AND RECURRENT SEIZURES 11/17/2011 MAYNOR PITT DO 345.90 EPILEPSY AND RECURRENT SEIZURES 11/17/2011 ISAAC PARISH RN 345. 90 EPILEPSY AND RECURRENT SEIZURES 11/17/2011 ISAAC PARISH RN 345. 90 EPILEPSY AND RECURRENT SEIZURES 11/17/2011 ISAAC PARISH RN 345. 90 EPILEPSY AND RECURRENT SEIZURES 11/17/2011 ISAAC PARISH RN 345. 90 EPILEPSY AND RECURRENT SEIZURES 11/17/2011 MAYNOR PITT DO 345.90 EPILEPSY AND RECURRENT SEIZURES 11/17/2011 MAYNOR PITT DO 345.90 EPILEPSY AND RECURRENT SEIZURES 11/17/2011 MAYNOR PITT DO 345.90 EPILEPSY AND RECURRENT SEIZURES 11/17/2011 ISAAC PARISH RN 345. 90 EPILEPSY AND RECURRENT SEIZURES 11/17/2011 ISAAC PARISH RN 345. 90 EPILEPSY AND RECURRENT SEIZURES 11/17/2011 ISAAC PARISH RN 345. 90 EPILEPSY AND RECURRENT SEIZURES 02/12/2012 MELISA ANGELA MD 314. 00 ADHD INATTENTIVE 02/12/2012 MELISA ANGELA MD 314. 00 ADHD INATTENTIVE 02/12/2012 MELISA ANGELA MD 314. 00 ADHD INATTENTIVE 02/12/2012 314.00 ADH D INATTENTIVE 02/12/2012 314.00 ADH D INATTENTIVE 02/12/2012 314.00 ADH D INATTENTIVE 02/12/2012 MAYNOR PITT DO 314.00 ADHD INATTENTIVE 02/12/2012 MAYNOR PITT DO K 314.00 ADHD INATTENTIVE 02/12/2012 MAYNOR PITT DO K 314.00 ADHD INATTENTIVE 02/12/2012 SANDY DEJESUS APRN 314.00 ADHD INATTENTIVE 02/12/2012 MAYNOR PITT DO 314.00 ADHD INATTENTIVE 02/12/2012 SANDY DEJESUS APRN 314.00 ADHD INATTENTIVE 02/12/2012 MAYNOR PITT DO 314.00 ADHD INATTENTIVE 02/12/2012 PITT DO, MAYNOR K 314.00 ADHD INATTENTIVE 02/12/2012 CHUCKYJackelinCONCEPCION VMWARE CONSULTANT, LATOYA E 314.00 ADHD INATTENTIVE 02/12/2012 PITT DO, MAYNOR K 314.00 ADHD INATTENTIVE 02/12/2012 PITT DO, MAYNOR K 314.00 ADHD INATTENTIVE 02/12/2012 PITT DO, MAYNOR K 314.00 ADHD INATTENTIVE 02/12/2012 CHUCKYJackelinCONCEPCION VMWARE CONSULTANT, LATOYA E 314.00 ADHD INATTENTIVE 02/12/2012 PITT DO, MAYNOR K 314.00 ADHD INATTENTIVE 02/12/2012 OLEG VMWARE CONSULTANT, SANDY Arambula 314.00 ADHD INATTENTIVE 02/12/2012 GHASSAN MEDELLINTEJAL 314.00 ADHD INATTENTIVE 02/12/2012 PITT DO, MAYNOR K 314.00 ADHD INATTENTIVE 02/12/2012 МАРИНА ROBERT, ISAAC E 314. 00 ADHD INATTENTIVE 02/12/2012 МАРИНА ROBERT, ISAAC E 314. 00 ADHD INATTENTIVE 02/12/2012 МАРИНА ROBERT, ISAAC E 314. 00 ADHD INATTENTIVE 02/12/2012 МАРИНА ROBERT, ISAAC E 314. 00 ADHD INATTENTIVE 02/12/2012 PITT DO, MAYNOR K 314.00 ADHD INATTENTIVE 02/12/2012 PITT DO, MAYNOR K 314.00 ADHD INATTENTIVE 02/12/2012 PITT DO, MAYNOR K 314.00 ADHD INATTENTIVE 02/12/2012 МАРИНА ROBERT, ISAAC E 314. 00 ADHD INATTENTIVE 02/12/2012 МАРИНА ROBERT, ISAAC E 314. 00 ADHD INATTENTIVE 02/12/2012 МАРИНА ROBERT, ISAAC E 314. 00 ADHD INATTENTIVE 05/03/2012 MELISA ANGELA MD 795. 01 Cerv Pap Smear (+) Atyp Squamous Cells Undetermined Signif 05/03/2012 MELISA ANGELA MD V04. 81 FLU DX (3 YRS AND ABOVE, IM) 05/03/2012 MELISA ANGELA MD 795. 01 Cerv Pap Smear (+) Atyp Squamous Cells Undetermined Signif 05/03/2012 MELISA ANGELA MD V04. 81 FLU DX (3 YRS AND ABOVE, IM) 05/03/2012 MELISA ANGELA MD 795. 01 Cerv Pap Smear (+) Atyp Squamous Cells Undetermined Signif 05/03/2012 MELISA ANGELA MD V04. 81 FLU DX (3 YRS AND ABOVE, IM) 05/03/2012 795.01 Cer v Pap Smear (+) Atyp Squamous Cells Undetermined Signif 05/03/2012 V04.81 FLU DX (3 YRS AND ABOVE, IM) 05/03/2012 795.01 Cer v Pap Smear (+) Atyp Squamous Cells Undetermined Signif 05/03/2012 V04.81 FLU DX (3 YRS AND ABOVE, IM) 05/03/2012 795.01 Cer v Pap Smear (+) Atyp Squamous Cells Undetermined [...] Pap Smear (+) Atyp Squamous Cells Undetermined Si gnif 05/03/2012 SANDY DEJESUS APRN V04.81 FLU DX (3 YRS AND ABOVE, IM) 05/03/2012 MAYNOR PITT DO 795.01 Cerv Pap Smear (+) Atyp Squamous Cells Undetermined Signif 05/03/2012 MAYNOR PITT DO V04.81 FLU DX (3 YRS AND ABOVE, IM) 05/03/2012 SANDY DEJESUS APRN 795.01 Cerv Pap Smear (+) Atyp Squamous Cells Undetermined Si gnif 05/03/2012 SANDY DEJESUS APRN V04.81 FLU DX (3 YRS AND ABOVE, IM) 05/03/2012 MAYNOR PITT DO 795.01 Cerv Pap Smear (+) Atyp Squamous Cells Undetermined Signif 05/03/2012 MAYNOR PITT DO V04.81 FLU DX (3 YRS AND ABOVE, IM) 05/03/2012 MAYNOR PITT DO K 795.01 Cerv Pap Smear (+) Atyp Squamous Cells Undetermined Signif 05/03/2012 SWEETIE ANGULOMAYNOR V04.81 FLU DX (3 YRS AND ABOVE, IM) 05/03/2012 LATOYA GALE APRN 795.01 Cerv Pap Smear (+) Atyp Squamous Cells Undetermined Si gnif 05/03/2012 LATOYA GALE APRN V04.81 FLU DX (3 YRS AND ABOVE, IM) 05/03/2012 PITT MAYNOR ANGULO 795.01 Cerv Pap Smear (+) Atyp Squamous Cells Undetermined Signif 05/03/2012 SWEETIE ANGULOMAYNOR K V04.81 FLU DX (3 YRS AND ABOVE, IM) 05/03/2012 PITT MAYNOR ANGULO 795.01 Cerv Pap Smear (+) Atyp Squamous Cells Undetermined Signif 05/03/2012 SWEETIE ANGULOMAYNOR V04.81 FLU DX (3 YRS AND ABOVE, IM) 05/03/2012 PITT MAYNOR ANGULO 795.01 Cerv Pap Smear (+) Atyp Squamous Cells Undetermined Signif 05/03/2012 SWEEITE ANGULOMAYNOR V04.81 FLU DX (3 YRS AND ABOVE, IM) 05/03/2012 LATOYA GALE APRN 795.01 Cerv Pap Smear (+) Atyp Squamous Cells Undetermined Si gnif 05/03/2012 LATOYA GALE APRN V04.81 FLU DX (3 YRS AND ABOVE, IM) 05/03/2012 PITT MAYNOR ANGULO 795.01 Cerv Pap Smear (+) Atyp Squamous Cells Undetermined Signif 05/03/2012 SWEETIE MAYNOR ANGULO V04.81 FLU DX (3 YRS AND ABOVE, IM) 05/03/2012 SANDY DEJESUS APRN 795.01 Cerv Pap Smear (+) Atyp Squamous Cells Undetermined Si gnif 05/03/2012 SANDY DEJESUS APRN V04.81 FLU DX (3 YRS AND ABOVE, IM) 05/03/2012 TEJAL FISH 795.01 Cerv Pap Smear (+) Atyp Squamous Cells Undetermined Si gnif 05/03/2012 TEJAL FISH V04.81 FLU DX (3 YRS AND ABOVE, IM) 05/03/2012 MAYNOR PITT DO 795.01 Cerv Pap Smear (+) Atyp Squamous Cells Undetermined Signif 05/03/2012 MAYNOR PITT DO V04.81 FLU DX (3 YRS AND ABOVE, IM) 05/03/2012 ISAAC PARISH RN 795. 01 Cerv Pap Smear (+) Atyp Squamous Cells Undetermined Signif 05/03/2012 ISAAC PARISH RN V04. 81 FLU DX (3 YRS AND ABOVE, IM) 05/03/2012 ISAAC PARISH RN 795. 01 Cerv Pap Smear (+) Atyp Squamous Cells Undetermined Signif 05/03/2012 ISAAC PARISH RN V04. 81 FLU DX (3 YRS AND ABOVE, IM) 05/03/2012 ISAAC PARISH RN 795. 01 Cerv Pap Smear (+) Atyp Squamous Cells Undetermined Signif 05/03/2012 ISAAC PARISH RN V04. 81 FLU DX (3 YRS AND ABOVE, IM) 05/03/2012 ISAAC PARISH RN 795. 01 Cerv Pap Smear (+) Atyp Squamous Cells Undetermined Signif 05/03/2012 ISAAC PARISH RN V04. 81 FLU DX (3 YRS AND ABOVE, IM) [...] AND ABOVE, IM) 05/03/2012 ISAAC PARISH RN 795. 01 Cerv Pap Smear (+) Atyp Squamous Cells Undetermined Signif 05/03/2012 ISAAC PARISH RN V04. 81 FLU DX (3 YRS AND ABOVE, IM) 05/03/2012 ISAAC PARISH RN 795. 01 Cerv Pap Smear (+) Atyp Squamous Cells Undetermined Signif 05/03/2012 ISAAC PARISH RN V04. 81 FLU DX (3 YRS AND ABOVE, IM) 05/03/2012 ISAAC PARISH RN E 795. 01 Cerv Pap Smear (+) Atyp Squamous Cells Undetermined Signif 05/03/2012 ISAAC PARISH RN E V04. 81 FLU DX (3 YRS AND ABOVE, IM) 05/09/2012 COREEN MCCARTY, MELISA 616. 2 BARTHOLIN CYST 05/09/2012 MELISA ANGELA MD 616. 2 BARTHOLIN CYST 05/09/2012 MELISA ANGELA MD 616. 2 BARTHOLIN CYST 05/09/2012 616.2 JOSE HOLIN CYST 05/09/2012 616.2 JOSE HOLIN CYST 05/09/2012 616.2 JOSE HOLIN CYST 05/09/2012 PITT DOMAYNOR K 616.2 BARTHOLIN CYST 05/09/2012 PITT DO, MAYNOR K 616.2 BARTHOLIN CYST 05/09/2012 PITT DO, MAYNOR K 616.2 BARTHOLIN CYST 05/09/2012 SANDY DEJESUS APRN 616.2 BARTHOLIN CYST 05/09/2012 PITT DO, MAYNOR K 616.2 BARTHOLIN CYST 05/09/2012 SANDY DEJESUS APRN 616.2 BARTHOLIN CYST 05/09/2012 PITT DO, MAYNOR K 616.2 BARTHOLIN CYST 05/09/2012 PITT DO, MAYNOR K 616.2 BARTHOLIN CYST 05/09/2012 LATOYA GALE APRN E 616.2 BARTHOLIN CYST 05/09/2012 PITT DO, MAYNOR K 616.2 BARTHOLIN CYST 05/09/2012 PITT DOANASTACIOA K 616.2 BARTHOLIN CYST 05/09/2012 PITT DO, MAYNOR K 616.2 BARTHOLIN CYST 05/09/2012 LATOYA GALE APRN E 616.2 BARTHOLIN CYST 05/09/2012 PITT DO, MAYNOR K 616.2 BARTHOLIN CYST 05/09/2012 SANDY DEJESUS APRN 616.2 BARTHOLIN CYST 05/09/2012 TEJAL FISH 616.2 BARTHOLIN CYST 05/09/2012 PITT DOMAYNOR K 616.2 BARTHOLIN CYST 05/09/2012 ISAAC PARISH RN 616. 2 BARTHOLIN CYST 05/09/2012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
[2020-01-13] MEDS ORDERED: PANTOPRAZOLE 40 MG (PROTONIX) VIAL IV ONE (18:00)
[2020-01-13] MEDS ORDERED: ONDANSETRON 4 MG/2 ML (SDV) Z0FRAN IVP ONE (18:00)
[2020-01-13 18:11] LABS: CLARITY,URINE CLOUDY; COLOR,URINE ORANGE; GLUCOSE, URINE (UA) NEGATIVE (NEGATIVE); KETONES,URINE 1+ (NEGATIVE); LEUKOCYTE ESTERASE ,URINE 1+ (NEGATIVE); NITRITE,URINE POSITIVE (NEGATIVE); PROTEIN,URINE 1+ (NEGATIVE)
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
[2020-01-13 18:23] LABS: BACTERIA,URINE MODERATE /HPF; WBC,URINE 50-100 /HPF
[2020-01-13 18:24] LABS: BASOPHILS % (AUTO) 0 % (0-10); EOSINOPHILS # (AUTO) 0.1 10^3/uL (0.0-0.3); EOSINOPHILS % (AUTO) 1 % (0-10); HEMATOCRIT 45 % (35-52); HEMOGLOBIN 15.6 G/DL (11.5-16.0); LYMPHOCYTES # (AUTO) 1.2 X 10^3 (1.0-4.0); LYMPHOCYTES % (AUTO) 14 % (12-44); MEAN CORPUSCULAR HEMOGLOBIN 34 PG (25-34); MEAN CORPUSCULAR HGB CONC 35 G/DL (32-36); MEAN CORPUSCULAR VOLUME 99 FL (80-99); MEAN PLATELET VOLUME 10.2 FL (7.4-10.4); MONOCYTES % (AUTO) 13 % (0-12); NEUTROPHILS # (AUTO) 5.9 X 10^3 (1.8-7.8); NEUTROPHILS % (AUTO) 72 % (42-75); PLATELET COUNT 192 10^3/uL (130-400); RED CELL DISTRIBUTION WIDTH 13.5 % (10.0-14.5); WHITE BLOOD COUNT 8.1 10^3/uL (4.3-11.0)
[2020-01-13 18:24] LABS: AMPHETAMINE SCREEN, URINE POSITIVE (NEGATIVE); BARBITURATE SCREEN URINE NEGATIVE (NEGATIVE); BENZODIAZEPINES SCREEN URINE NEGATIVE (NEGATIVE); CANNABINOID SCREEN, URINE NEGATIVE (NEGATIVE); COCAINE SCREEN URINE NEGATIVE (NEGATIVE); METHADONE STAT NEGATIVE (NEGATIVE); METHAMPHETAMINE SCREEN URINE S NEGATIVE (NEGATIVE); OPIATE SCREEN URINE NEGATIVE (NEGATIVE); OXYCODONE STAT NEGATIVE (NEGATIVE); PROPOXYPHENE STAT NEGATIVE (NEGATIVE); TRICHOMONAS,URINE MODERATE /HPF; TRICYCLIC ANTIDEPRESSANTS SCRE NEGATIVE (NEGATIVE)
[2020-01-13 18:33] LABS: INR 0.9 (0.8-1.4); PROTHROMBIN TIME PATIENT 12.4 SEC (12.2-14.7)
[2020-01-13 18:47] LABS: ALANINE AMINOTRANSFERASE 42 U/L (0-55); ALBUMIN 4.3 GM/DL (3.2-4.5); ALKALINE PHOSPHATASE 97 U/L (40-136); AMYLASE 33 U/L (25-125); BILIRUBIN,TOTAL 1.3 MG/DL (0.1-1.0); BUN/CREATININE RATIO 9; CARBON DIOXIDE 22 MMOL/L (21-32); CHLORIDE 99 MMOL/L (98-107); CREATINE KINASE 87 U/L (29-168); CREATININE SERUM 0.78 MG/DL (0.60-1.30); GFR ESTIMATED > 60; GLUCOSE 117 MG/DL (70-105); LIPASE 10 U/L (8-78); MAGNESIUM 1.7 MG/DL (1.6-2.4); POTASSIUM 3.4 MMOL/L (3.6-5.0); SODIUM 136 MMOL/L (135-145); TOTAL PROTEIN 7.2 GM/DL (6.4-8.2)
[2020-01-13] MEDS ORDERED: SUCR1TAB36 PO (18:50)
[2020-01-13] MEDS ORDERED: NITR-65 PO (18:50)
[2020-01-13] MEDS ORDERED: PANT40TA2 PO (18:50)
[2020-01-13 18:57] LABS: ACETAMINOPHEN < 10 UG/ML (10-30)
[2020-01-13] MEDS ORDERED: NS 100 ML (IVPB) BAG IV ONE (19:00)
[2020-01-13] MEDS ORDERED: cefTRIAXone FOR IV USE 1,000 MG in WATER (STERILE) FOR INJECTION 10 ML IV ONE (19:00)
[2020-01-13] MEDS ORDERED: CATHETER FLUSH 10 ML SYR IV PRN (19:00)
[2020-01-13] MEDS ORDERED: IOHEXOL 350 MG/ML 100 ML (OMNIPAQUE 350) VIAL IV ONE (19:00)
[2020-01-13] MEDS ORDERED: HOLD METFORMIN - RECEIVED CONTRAST 20 ML VIAL IV SCH (19:00)
[2020-01-13 19:07] LABS: CREATINE KINASE MB 2.7 NG/ML (<6.6); TSH (THYROID ANALYZER) 0.78 UIU/ML (0.35-4.94)
--- NOTE | 2020-01-13 19:39 | Diagnostic Imaging Report ---
EXAMINATION: Acute abdomen series INDICATION: Weight loss, abdominal pain The accompanying erect PA chest shows the heart size to be within normal limits and stable when compared to 10/09/2019. The lungs are clear. There is no evidence for pneumonia or for a pleural effusion. There is no sign of a pneumoperitoneum. The dextroscoliosis of the thoracic spine seen previously is again evident and not significantly changed. Supine and erect views of the abdomen were obtained. There is gas in both the large and small bowel in a nonspecific fashion. There is no evidence for a bowel obstruction. There is also a fair amount of gas within the stomach. There is no mass or organomegaly appreciated. Surgical clips are seen on each side of the pelvis. The osseous structures are intact. There is also levoscoliosis of the lumbar spine. IMPRESSION: 1. The bowel gas pattern is nonspecific. There is no acute abnormality identified. 2. There is S-type scoliosis of the thoracolumbar spine. 3. Reportedly, CT of the abdomen and pelvis is pending for further study. Dictated by: Dictated on workstation # [id number]
--- NOTE | 2020-01-13 19:54 | Diagnostic Imaging Report ---
PROCEDURE: CT abdomen and pelvis with contrast. TECHNIQUE: Multiple contiguous axial images were obtained through the abdomen and pelvis after administration of intravenous contrast. Auto Exposure Controls were utilized during the CT exam to meet ALARA standards for radiation dose reduction. INDICATION: Abdominal pain There are no prior CT examinations available for comparison. There is fluid throughout much of the small bowel and there do seem to be several segments of small bowel with generalized thickening of the wall. This does suggest enteritis. There is no evidence for small bowel obstruction. There is no mass or abscess visualized. The uterus is prominent and the endometrial lining is slightly thickened measuring 11 mm (normal 5 mm or less). This finding is nonspecific. Correlation with patient's menstrual cycle would be recommended. There is a 2.7 cm rounded area of low density along the right lateral aspect of the uterus. This could represent a segment of bowel or perhaps a right ovarian cyst. If further evaluation is desired, then ultrasound would be recommended. The appendix is not well visualized but there are no indirect signs of acute appendicitis. The gallbladder is not well-distended and consequently difficult to assess. The stomach is also partially filled with fluid and it too is difficult to evaluate. The liver, spleen, pancreas, adrenals, kidneys, aorta and inferior vena cava show no sign of an acute abnormality. The lung bases are clear. The bone windows show no evidence for a fracture or for a destructive lesion. There is dextroscoliosis of the lower thoracic spine and levoscoliosis of the upper lumbar spine. IMPRESSION: 1. The appearance of the small bowel does suggest enteritis. Clinical follow-up is recommended. 2. There is a question of a cyst associated with the right ovary. If further study is desired, ultrasound would be recommended. 3. There is no acute abnormality of the abdomen or pelvis noted otherwise. 4. The gallbladder was contracted and difficult to evaluate. Dictated by: Dictated on workstation # [id number]
[2020-01-13] MEDS ORDERED: ONDA4TAB11 PO (20:06)
[2020-01-13 20:27] VITALS: BP 150/103
[2020-01-14 08:13] LABS: BILIRUBIN,URINE 1+ (NEGATIVE)
== END 2020-01-13 20:29 | disposition home or self-care (01) ==
LOC: EDUNIT# 17:41 → ER 17:42
DX: N39.0 Urinary tract infection, site not specified (principal); F19.10 Other psychoactive substance abuse, uncomplicated; F41.9 Anxiety disorder, unspecified; F10.20 Alcohol dependence, uncomplicated; G40.909 Epilepsy, unspecified, not intractable, without status epilepticus; R10.13 Epigastric pain; F32.9 Major depressive disorder, single episode, unspecified; Z88.5 Allergy status to narcotic agent; Z88.0 Allergy status to penicillin; Z91.14 Patient's other noncompliance with medication regimen; Y90.0 Blood alcohol level of less than 20 mg/100 ml
CPT/HCPCS: 74022; 74177; 80053; 80306; 81000; 82150; 82550; 82553; 83690; 83735; 83874; 84443; 84703; 85025; 85610; 85730; 87077; 87088; 93041; 99284; G0480 ×2; 36415; 80320; 80329; 87186